=== PATIENT | male | born 1940 | race Caucasian/White ===

== ENCOUNTER 2021-02-18 15:41 | Inpatient (IN) ==
--- NOTE | 2021-02-18 16:22 | Emergency Department Note ---
History of Present Illness General Chief complaint: Weakness Stated complaint: weakness, sob Time Seen by Provider: 02/18/21 16:08 History of Present Illness Maximum Pain Intensity: 0 81-year-old male presents to the ED with a chief complaint of generalized weakness since getting the flu shot. He thinks that it was about 5 days ago. He states that his told him that he looked pale. He has had a dry cough since getting the shot. He states that he feels a little short of breath and has had a little diarrhea 2 days ago. The patient states that he typically uses home oxygen at nighttime. He does report having the motor and a Covid vaccine in the springtime. The patient does seem unsure if he has a history of A. fib or if he is on anticoagulation. I did not see that documented in his chart. Nursing staff report that he is too weak to sit up on his own. Home Medications Medication Instructions Recorded Confirmed Type amoxicillin 500 mg capsule 2,000 mg PO DIRECTED PRN 02/18/21 02/18/21 History ascorbic acid (vitamin C) 500 mg 500 mg PO DAILY 02/18/21 02/18/21 History tablet (Vitamin C) aspirin 81 mg tablet,delayed 81 mg PO DAILY 02/18/21 02/18/21 History release atenolol 25 mg tablet 25 mg PO DAILY 02/18/21 02/18/21 History atorvastatin 20 mg tablet 20 mg PO HS 02/18/21 02/18/21 History calcium carbonate-vitamin D3 600 1 cap PO DAILY 02/18/21 02/18/21 History mg calcium-200 unit capsule (Calcium 600 + D(3)) cholecalciferol (vitamin D3) 50 50 mcg PO DAILY 02/18/21 02/18/21 History mcg (2,000 unit) capsule (Vitamin D3) clopidogrel 75 mg tablet 75 mg PO DAILY 02/18/21 02/18/21 History coQ10 (ubiquinol) 200 mg capsule 200 mg PO DAILY 02/18/21 02/18/21 History epinephrine 0.3 mg/0.3 mL 0.3 mg IM DIRECTED PRN 02/18/21 02/18/21 History injection, auto-injector (EpiPen) ezetimibe 10 mg tablet 10 mg PO DAILY 02/18/21 02/18/21 History furosemide 40 mg tablet 40 mg PO BID 02/18/21 02/18/21 History gabapentin 400 mg capsule 400 mg PO TID 02/18/21 02/18/21 History levetiracetam 500 mg tablet 500 mg PO BID 02/18/21 02/18/21 History multivitamin 1 tab PO DAILY 02/18/21 02/18/21 History psyllium seed (sugar) oral powder 1 tbsp PO DAILY PRN 02/18/21 02/18/21 History (Metamucil (sugar)) sildenafil (pulm.hypertension) 20 20 mg PO BID 02/18/21 02/18/21 History mg tablet terazosin 10 mg capsule 10 mg PO HS 02/18/21 02/18/21 History Allergies Allergy/AdvReac Type Severity Reaction Status Date / Time bee venom protein (honey bee) Allergy Severe ANAPHYLAXIS-YELLOW Verified 02/18/21 18:41 JACKETS Uncoded Nonscreenable Allergy Severe All Uncoded 02/18/21 18:41 Allergen IV's must be administered thru 0.2mic in-line filter Past Med/Surg History Social History Smoking Status: Former smoker Tobacco Type: Cigarettes Feels Safe at Home: Yes Review of Systems A total of 10 systems reviewed and were otherwise negative Physical Exam Vital Signs Vital Signs - 24 hr 02/18/21 15:45 02/18/21 15:56 02/18/21 16:00 Temperature 37.7 C H Temperature Source Oral Pulse Rate 114 H 120 H 117 H Pulse Rate [Left Apical] Pulse Rhythm Pulse Rhythm [Left Apical] Respiratory Rate 26 H 20 16 Respiratory Effort / Characteristics Respiratory Depth Normal Blood Pressure 128/48 L Blood Pressure [Right Arm] Blood Pressure Mean 74 Blood Pressure Mean [Right Arm] Pulse Oximetry 95 Oxygen Delivery Method Room Air Sepsis Recent Fever Within 48 Hours No Sepsis New/Unexplained Change in Mental Status N/A Sepsis Action Taken by Nursing No Action Required 02/18/21 16:17 02/18/21 16:54 02/18/21 16:55 Temperature Temperature Source Pulse Rate 114 H 114 H Pulse Rate [Left Apical] Pulse Rhythm Irregular Irregular Pulse Rhythm [Left Apical] Respiratory Rate 26 H 20 Respiratory Effort / Characteristics Respiratory Depth Blood Pressure Blood Pressure [Right Arm] Blood Pressure Mean Blood Pressure Mean [Right Arm] Pulse Oximetry 95 94 94 Oxygen Delivery Method Room Air Room Air Room Air Sepsis Recent Fever Within 48 Hours Sepsis New/Unexplained Change in Mental Status Sepsis Action Taken by Nursing 02/18/21 16:56 02/18/21 17:00 02/18/21 18:00 Temperature Temperature Source Pulse Rate 115 H 118 H Pulse Rate [Left Apical] 114 H Pulse Rhythm Pulse Rhythm [Left Apical] Irregular Respiratory Rate 20 20 22 Respiratory Effort / Characteristics Non-Labored Respiratory Depth Normal Blood Pressure Blood Pressure [Right Arm] 99/66 L Blood Pressure Mean Blood Pressure Mean [Right Arm] 77 Pulse Oximetry 94 96 91 Oxygen Delivery Method Room Air Sepsis Recent Fever Within 48 Hours Sepsis New/Unexplained Change in Mental Status Sepsis Action Taken by Nursing 02/18/21 18:11 Temperature Temperature Source Pulse Rate Pulse Rate [Left Apical] 127 H Pulse Rhythm Pulse Rhythm [Left Apical] Irregular Respiratory Rate 16 Respiratory Effort / Characteristics Respiratory Depth Normal Blood Pressure Blood Pressure [Right Arm] 112/65 Blood Pressure Mean Blood Pressure Mean [Right Arm] 80 Pulse Oximetry 95 Oxygen Delivery Method Sepsis Recent Fever Within 48 Hours Sepsis New/Unexplained Change in Mental Status Sepsis Action Taken by Nursing CONSTITUTIONAL/VITAL SIGNS: Reviewed / noted above. GENERAL: Non-toxic in appearance. INTEGUMENTARY: Warm, dry, and Register. HEAD: Normocephalic. EYES: without scleral icterus or trauma. ENT/OROPHARYNX: clear and moist. LYMPHADENOPATHY/NECK: Is supple without lymphadenopathy or meningismus. RESPIRATORY: Clear to auscultation bilaterally. No increased work of breathing. CARDIOVASCULAR: Regular rate irregular rhythm. GI/ABDOMEN: Soft and nontender. No organomegaly or pulsatile mass. EXTREMITIES: Warm and well perfused. BACK: No CVA tenderness. NEUROLOGICAL: Intact without focal deficits. PSYCHIATRIC: normal affect. MUSCULOSKELETAL: Normally developed with good muscle tone. TRIAGE NURSING DOCUMENTATION REVIEWED. Course Administered Medications Discontinued Medications Sodium Chloride (Nss) 500 mls @ 999 mls/hr IV .Q31M LARRY Stop: 02/18/21 17:00 Last Infusion: 02/18/21 18:07 Dose: 0 mls/hr Documented by: [id number] Admin: 02/18/21 16:59 Dose: 999 mls/hr Documented by: [id number] Medical Decision Making Differential Diagnosis Differential includes acute coronary syndrome, myocardial infarction, CVA, TIA, anemia, infection, pneumonia, UTI, pyelonephritis, poor nutrition, dehydration, electrolyte disturbance,hypoglycemia. Medical Records Attestation: I reviewed the patient's medical records. Home Medications Current Medication List: was personally reviewed by me Laboratory Data Attestation: I reviewed the patient's lab results. Result diagrams: 02/18/21 16:28 02/18/21 16:28 Lab Results 02/18/21 02/18/21 02/18/21 Range/Units 16:28 16:28 16:28 WBC 13.84 H (4.8-10.8) K/uL RBC 3.43 L (4.7-6.1) M/uL Hgb 9.9 L (14.0-18.0) g/dL Hct 28.5 L (42-52) % MCV 83.1 (80-100) fL MCH 28.9 (25-34) pg MCHC 34.7 (32-36) g/dL RDW Std Deviation 44.3 (36.4-46.3) fL RDW Coeff of Ruth 14.5 (11.5-14.5) % Plt Count 286 (130-400) K/uL MPV 9.0 (7.4-10.4) fL Immature Gran % (Auto) 0.1 % Neut % (Auto) 85.4 % Lymph % (Auto) 3.6 % Ferry % (Auto) 10.8 % Eos % (Auto) 0.0 % Baso % (Auto) 0.1 % Neut # (Auto) 11.81 H (1.4-6.5) K/uL Lymph # (Auto) 0.50 L (1.2-3.4) K/uL Ferry # (Auto) 1.50 H (0.11-0.59) K/uL Eos # (Auto) 0.00 (0-0.5) K/uL Baso # (Auto) 0.01 (0-0.2) K/uL Immature Gran # (Auto) 0.02 (0.00-0.02) K/uL PT 10.4 (9.0-12.0) Seconds INR 1.0 (0.9-1.1) Sodium 125 L (136-145) mmol/L Potassium 3.9 (3.5-5.1) mmol/L Chloride 91 L (98-107) mmol/L Carbon Dioxide 26 (21-32) mmol/L Anion Gap 8.0 (3-11) BUN 19 H (7-18) mg/dl Creatinine 1.34 (0.6-1.4) mg/dl Est Cr Clr Drug Dosing 39.8 ml/min Est GFR ( Amer) 56.8 ml/min Est GFR (Non-Af Amer) 49.0 ml/min BUN/Creatinine Ratio 14.2 (10-20) Glucose 155 H (70-99) mg/dl Calcium 8.9 (8.5-10.1) mg/dl Magnesium 1.7 L (1.8-2.4) mg/dl Total Bilirubin 0.7 (0.2-1) mg/dl AST 32 (15-37) U/L ALT 19 (12-78) U/L Alkaline Phosphatase 83 (45-117) U/L Total Creatine Kinase 278 (39-308) U/L Troponin I 0.992 H* (0-0.045) ng/ml Total Protein 7.2 (6.4-8.2) gm/dl Albumin 2.8 L (3.4-5.0) gm/dl Globulin 4.4 H (2.5-4.0) gm/dl Albumin/Globulin Ratio 0.6 L (0.9-2) TSH 0.597 (0.300-4.500) uIu/ml Urine Color Urine Appearance (Clear) Urine pH (4.5-7.5) Ur Specific [place] (1.000-1.030) Urine Protein (Negative) Urine Glucose (UA) (Negative) Urine Ketones (Negative) Urine Blood (Negative) Urine Nitrite (Negative) Urine Bilirubin (Negative) Urine Urobilinogen (Negative) Ur Leukocyte Esterase (Negative) Urine WBC (Auto) (0-5) /hpf Urine RBC (Auto) (0-4) /hpf U Hyaline Cast (Auto) (0-5) /lpf U Epithel Cells (Auto) (0-5) /lpf Urine Bacteria (Auto) (Negative) Urine Yeast COVID-19 Eval Order SARS-CoV-2 (PCR) (Negative) 02/18/21 02/18/21 02/18/21 Range/Units 16:51 16:51 16:51 WBC (4.8-10.8) K/uL RBC (4.7-6.1) M/uL Hgb (14.0-18.0) g/dL Hct (42-52) % MCV (80-100) fL MCH (25-34) pg MCHC (32-36) g/dL RDW Std Deviation (36.4-46.3) fL RDW Coeff of Ruth (11.5-14.5) % Plt Count (130-400) K/uL MPV (7.4-10.4) fL Immature Gran % (Auto) % Neut % (Auto) % Lymph % (Auto) % [place]erry % (Auto) % Eos % (Auto) % Baso % (Auto) % Neut # (Auto) (1.4-6.5) K/uL Lymph # (Auto) (1.2-3.4) K/uL Ferry # (Auto) (0.11-0.59) K/uL Eos # (Auto) (0-0.5) K/uL Baso # (Auto) (0-0.2) K/uL Immature Gran # (Auto) (0.00-0.02) K/uL PT (9.0-12.0) Seconds INR (0.9-1.1) Sodium (136-145) mmol/L Potassium (3.5-5.1) mmol/L Chloride (98-107) mmol/L Carbon Dioxide (21-32) mmol/L Anion Gap (3-11) BUN (7-18) mg/dl Creatinine (0.6-1.4) mg/dl Est Cr Clr Drug Dosing ml/min Est GFR ( Amer) ml/min Est GFR (Non-Af Amer) ml/min BUN/Creatinine Ratio (10-20) Glucose (70-99) mg/dl Calcium (8.5-10.1) mg/dl Magnesium (1.8-2.4) mg/dl Total Bilirubin (0.2-1) mg/dl AST (15-37) U/L ALT (12-78) U/L Alkaline Phosphatase (45-117) U/L Total Creatine Kinase (39-308) U/L Troponin I (0-0.045) ng/ml Total Protein (6.4-8.2) gm/dl Albumin (3.4-5.0) gm/dl Globulin (2.5-4.0) gm/dl Albumin/Globulin Ratio (0.9-2) TSH (0.300-4.500) uIu/ml Urine Color Yellow Urine Appearance Cloudy A (Clear) Urine pH 6.5 (4.5-7.5) Ur Specific [place] 1.011 (1.000-1.030) Urine Protein 2+ H (Negative) Urine Glucose (UA) Negative (Negative) Urine Ketones Negative (Negative) Urine Blood 1+ H (Negative) Urine Nitrite Negative (Negative) Urine Bilirubin Negative (Negative) Urine Urobilinogen Negative (Negative) Ur Leukocyte Esterase Negative (Negative) Urine WBC (Auto) 1-5 (0-5) /hpf Urine RBC (Auto) 0-4 (0-4) /hpf U Hyaline Cast (Auto) 1-5 (0-5) /lpf U Epithel Cells (Auto) >30 H (0-5) /lpf Urine Bacteria (Auto) Negative (Negative) Urine Yeast Not Reportable COVID-19 Eval Order Covid19 at [facility] SARS-CoV-2 (PCR) NEGATIVE (Negative) Imaging Data Radiologist's Impression: Chest X-Ray 02/18/21 16:18 XR chest 1V portable CLINICAL HISTORY: weakness COMPARISON STUDY: Chest radiograph November 15, 2015. Chest CT November 16, 2015. FINDINGS: Incidental note is made of postoperative findings within the cervical spine. There is no pneumothorax or pleural effusion. Cardiomegaly is unchanged. Interstitial thickening and mild bilateral opacities are similar to prior exam no lobar consolidation is present left hilar prominence is unchanged. This is likely due to to an enlarged left pulmonary artery, as shown on prior CT. IMPRESSION: Interstitial thickening and mild left lung opacities, similar to prior exam. The findings are likely chronic. A mild superimposed infectious p rocess would be difficult to exclude. ACT 112: Negative or not required by law. Electronically signed by: Rubén Sterling M.D. 02/18/2021 5:20 PM ECG Data Attestation: I personally reviewed and interpreted this ECG as follows: Additional Comments: Twelve-lead EKG: Per my interpretation there is atrial fibrillation at a rate of 112. No ST elevation. No PVCs. Normal QTC MDM Narrative Patient presents with generalized weakness and a dry cough and a little shortness of breath since receiving a flu vaccine about 5 days or so ago. Vital signs reveal tachycardia with a heart rate of 114. EKG shows atrial fibrill ation. No apparent history of atrial fibrillation in the records. Patient has a temperature of 37. 7. Ox saturations are 95% on room air. He is in no distress. He is very weak according to nursing staff. He cannot sit well or get out of bed on his own. They reported that he has been using his 's walker for the past 5 days or so. The patient's EKG shows A. fib which appears to be new onset. His heart rate is 112. White blood cell count was 13.8. Hemoglobin is 9.9. Sodium is 125. Troponin is 0.99. TSH was normal. Urine did not show obvious infection. Chest x-ray did not show obvious infiltrate or pneumonia or acute disease. Covid test was negative. I spoke to the hospita list. He will see the patient for further inpatient evaluation and care. Impression & Plan Atrial fibrillation, new onset, Generalized muscle weakness, Elevated troponin, Acute hyponatremia Discharge Plan Visit Data Chief Complaint: Weakness Stated Complaint: weakness, sob ED Provider: David Sky Discharge Problem: Atrial fibrillation, new onset, Generalized muscle weakness, Elevated troponin, Acute hyponatremia Forms Stand Alone Forms: [facility] Prescriptions Prescriptions: No Action multivitamin Tablet 1 tab PO DAILY RF: 0 amoxicillin 500 mg capsule 2,000 mg PO DIRECTED PRN (Reason: PRIOR TO DENTAL APPT.) RF: 0 furosemide 40 mg tablet 40 mg PO BID RF: 0 atorvastatin 20 mg tablet 20 mg PO HS RF: 0 levetiracetam 500 mg tablet 500 mg PO BID RF: 0 gabapentin 400 mg capsule 400 mg PO TID RF: 0 atenolol 25 mg tablet 25 mg PO DAILY RF: 0 clopidogrel 75 mg tablet 75 mg PO DAILY RF: 0 aspirin 81 mg Tablet,Delayed Release (Dr/Ec) 81 mg PO DAILY RF: 0 ascorbic acid (vitamin C) [Vitamin C] 500 mg Tablet 500 mg PO DAILY RF: 0 epinephrine [EpiPen] 0.3 mg/0.3 mL Auto-Injector 0.3 mg IM DIRECTED PRN (Reason: Allergic Reaction) RF: 0 terazosin 10 mg capsule 10 mg PO HS RF: 0 ezetimibe 10 mg tablet 10 mg PO DAILY RF: 0 Metamucil (sugar) Powder 1 tbsp PO DAILY PRN (Reason: Constipation) RF: 0 Calcium 600 + D(3) 600 mg calcium- 200 unit Capsule 1 cap PO DAILY RF: 0 sildenafil (pulm.hypertension) 20 mg tablet 20 mg PO BID RF: 0 cholecalciferol (vitamin D3) [Vitamin D3] 50 mcg (2,000 unit) Capsule 50 mcg PO DAILY RF: 0 coQ10 (ubiquinol) 200 mg Capsule 200 mg PO DAILY RF: 0 Referrals Referrals: Henry Campbell MD [Primary Care Provider] -
[2021-02-18] MEDS ORDERED: SODIUM CHLORIDE 0.9% 500 ML IV SCH (16:30)
[2021-02-18 16:47] LABS: Basophils # (auto) 0.01 K/uL (0-0.2); Basophils % (auto) 0.1 %; Hematocrit (blood only) 28.5 % (42-52); Hemoglobin 9.9 g/dL (14.0-18.0); Immature Granulocytes # (auto) 0.02 K/uL (0.00-0.02); Immature Granulocytes % (auto) 0.1 %; Lymphocytes % (auto) 3.6 %; Mean Corpuscular Hemoglobin 28.9 pg (25-34); Mean Corpuscular Hgb Conc 34.7 g/dL (32-36); Mean Corpuscular Volume 83.1 fL (80-100); Monocytes % (auto) 10.8 %; Neutrophils # (auto) 11.81 K/uL (1.4-6.5); Neutrophils % (auto) 85.4 %; Platelet Count 286 K/uL (130-400); RDW Coefficient of Variation 14.5 % (11.5-14.5); RDW Standard Deviation 44.3 fL (36.4-46.3); Red Blood Count 3.43 M/uL (4.7-6.1); White Blood Count 13.84 K/uL (4.8-10.8)
[2021-02-18 17:00] LABS: Prothrombin Time 10.4 Seconds (9.0-12.0)
[2021-02-18 17:05] LABS: Appearance Urine Cloudy (Clear); Bacteria Urine Automated Negative (Negative); Bilirubin Urine Negative (Negative); Blood Urine 1+ (Negative); Color Urine Yellow; Epithelial Cell Urine Auto >30 /lpf (0-5); Glucose Urine UA Negative (Negative); Ketones Urine Negative (Negative); Leukocyte Esterase Urine Negative (Negative); Nitrite Urine Negative (Negative); Protein Urine 2+ (Negative); RBC Urine Automated 0-4 /hpf (0-4); Specific Gravity Urine 1.011 (1.000-1.030); Urobilinogen Urine Negative (Negative); pH Urine 6.5 (4.5-7.5)
[2021-02-18 17:14] LABS: Albumin Level 2.8 gm/dl (3.4-5.0); BUN Creatinine Ratio 14.2 (10-20); Calcium 8.9 mg/dl (8.5-10.1); Creatinine Clr Calc Pharmacy 39.8 ml/min; Est GFR (African American) 56.8 ml/min; Magnesium 1.7 mg/dl (1.8-2.4); Potassium 3.9 mmol/L (3.5-5.1)
--- NOTE | 2021-02-18 17:22 | XRay Report ---
XR chest 1V portable CLINICAL HISTORY: weakness COMPARISON STUDY: Chest radiograph November 15, 2015. Chest CT November 16, 2015. FINDINGS: Incidental note is made of postoperative findings within the cervical spine. There is no pn eumothorax or pleural effusion. Cardiomegaly is unchanged. Interstitial thickening and mild bilateral opacities are similar to prior exam no lobar consolidation is present left hilar prominence is uncha nged. This is likely due to to an enlarged left pulmonary artery, as shown on prior CT. IMPRESSION: Interstitial thickening and mild left lung opacities, similar to prior exam. The finding s are likely chronic. A mild superimposed infectious process would be difficult to exclude. ACT 112: Negative or not required by law. Electronically signed by: Rubén Sterling M.D. 02/18/2021 5:20 PM
[2021-02-18 17:33] LABS: Albumin Globulin Ratio 0.6 (0.9-2); Bilirubin,Total 0.7 mg/dl (0.2-1); Globulin 4.4 gm/dl (2.5-4.0); Thyroid Stimulating Hormone 0.597 uIu/ml (0.300-4.500); Total Protein 7.2 gm/dl (6.4-8.2); Troponin I 0.992 ng/ml (0-0.045)
[2021-02-18] MEDS ORDERED: ACETAMINOPHEN 325 MG TAB PO STA (19:18)
[2021-02-18] MEDS ORDERED: MAGNESIUM SULFATE / D5W 1 GM/100 ML BAG IV ONE ×2 (19:18→23:30)
[2021-02-18] MEDS ORDERED: POTASSIUM CHLORIDE CRTAB 20 MEQ TABCR PO STA (19:28)
[2021-02-18] MEDS ORDERED: METOPROLOL TARTRATE 1 MG/ML VIAL IV STA (19:28)
--- NOTE | 2021-02-18 20:09 | History & Physical Report ---
Date of Service February 18, 2021 Assessment & Plan (1) Atrial fibrillation, new onset: Plan: ? 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 hypertension, BP on the lower side hyperlipidemia, on statin Rx prostate cancer status post surgery/radiation, outpatient PSA rising, patient follows [place] [facility] [place] seizure disorder, stable on regimen Acute on chronic anemia, hemoglobin drop from baseline (no overt source of bleed for now) Hyperglycemia rule out DM Possible alcohol abuse past tobacco abuse PCU Change patient's atenolol to metoprolol for rate control Antipyretic, supportive management for viral illness Gentle IV hydration, hold home diuretic until patient euvolemic IV Heparin for thromboembolic prophylaxis TTE, cardiology consult new onset A. fib OLEG S/DT precautions Anemia work-up, transfuse PRBC if hemoglobin less than 8 and or for symptomatic anemia Check hemoglobin A1c PT OT eval DVT prophylaxis with IV Heparin Full code Patient's requesting update providers. Ms. Nina Dunham, contact #[phone]. Text document was generated using [employer] voice recognition software. It may contain grammatical or spelling errors. Kindly contact undersigned for clarification of any documentation item in question. History of Present Illness Chief Complaint: Generalized weakness Primary Care Provider: Henry Campbell MD History obtained from patient, family, and records. Medical history significant for right-sided heart failure/cor pulmonale (EF 50 to 54%, TTE 2020), CAD, PVD status post stent, severe aortic stenosis, ASD status post closure, hypertension, hyperlipidemia, prostate cancer status post surgery/radiation, seizure disorder, chronic anemia (baseline hemoglobin of 11 as of 2018 ), daily alcohol intake, past tobacco abuse. Last confinement November 2015 for syncope associated with confusion. Neurology started Keppra for possible seizures. Patient noted generalized weakness after getting a flu shot about 5 days ago. Dry cough without chest pain or shortness of breath. Transient diarrhea. No headache symptoms. No abdominal pain, fair appetite. Patient brought by to the ER. Noted to be in rapid atrial fibrillation, cardiac rate 120s. Medical History as above 2003 colonoscopy was normal as per records. 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 Allergies Allergy/AdvReac Type Severity Reaction Status Date / Time bee venom protein (honey bee) Allergy Severe ANAPHYLAXIS-YELLOW Verified 02/18/21 18:41 JACKETS Uncoded Nonscreenable Allergy Severe All Uncoded 02/18/21 18:41 Allergen IV's must be administered thru 0.2mic in-line filter Home Medications Medication Instructions Recorded Confirmed Type amoxicillin 500 mg capsule 2,000 mg PO DIRECTED PRN 02/18/21 02/18/21 History ascorbic acid (vitamin C) 500 mg 500 mg PO DAILY 02/18/21 02/18/21 History tablet (Vitamin C) aspirin 81 mg tablet,delayed 81 mg PO DAILY 02/18/21 02/18/21 History release atenolol 25 mg tablet 25 mg PO DAILY 02/18/21 02/18/21 History atorvastatin 20 mg tablet 20 mg PO HS 02/18/21 02/18/21 History calcium carbonate-vitamin D3 600 1 cap PO DAILY 02/18/21 02/18/21 History mg calcium-200 unit capsule (Calcium 600 + D(3)) cholecalciferol (vitamin D3) 50 50 mcg PO DAILY 02/18/21 02/18/21 History mcg (2,000 unit) capsule (Vitamin D3) clopidogrel 75 mg tablet 75 mg PO DAILY 02/18/21 02/18/21 History coQ10 (ubiquinol) 200 mg capsule 200 mg PO DAILY 02/18/21 02/18/21 History epinephrine 0.3 mg/0.3 mL 0.3 mg IM DIRECTED PRN 02/18/21 02/18/21 History injection, auto-injector (EpiPen) ezetimibe 10 mg tablet 10 mg PO DAILY 02/18/21 02/18/21 History furosemide 40 mg tablet 40 mg PO BID 02/18/21 02/18/21 History gabapentin 400 mg capsule 400 mg PO TID 02/18/21 02/18/21 History levetiracetam 500 mg tablet 500 mg PO BID 02/18/21 02/18/21 History multivitamin 1 tab PO DAILY 02/18/21 02/18/21 History psyllium seed (sugar) oral powder 1 tbsp PO DAILY PRN 02/18/21 02/18/21 History (Metamucil (sugar)) sildenafil (pulm.hypertension) 20 20 mg PO BID 02/18/21 02/18/21 History mg tablet terazosin 10 mg capsule 10 mg PO HS 02/18/21 02/18/21 History Past Med/Surg History Social History Smoking Status: Former smoker Tobacco Type: Cigarettes Smoking End Date: 40 yra; Second Hand Exposure: No; Do You Dip or Chew Tobacco: No; Tobacco Cessation Education Requested by Patient: No Hx Alcohol Use: Yes Alcohol type: beer Hx Substance Use: No Preferred Language: Faroese Communication Ability: Effective Lead Mechanical Engineer Required: No Beliefs That Will Affect Care: None Current Living Situation: Spouse Other Information That Helps Us Care for You: No Feels Safe at Home: Yes Safety Concerns: Feels Safe At This Time Assistive Devices: Oxygen - at Night Review of Systems Review of Systems: As per HPI, all 10 systems reviewed, all other ROS negative Physical Exam Physical Exam: GENERAL: Slightly anxious, slightly uncomfortable, mild hearing impairment, no respiratory distress SKIN: Pallor, warm HEENT: Pale palpebral conjunctivae, no ptosis, dry buccal mucosa NECK : Supple, no tenderness CHEST : Decreased breath sounds, no tenderness HEART : Irregular, tachycardic, systolic murmur best heard on second right intercostal space ABDOMEN: Some distention, nontender RECTAL : Intact sphincter, brown stool (FOBT negative) EXTREMITIES : Minimal LE swelling, no LE tenderness, no other conspicuous deformities noted NEUROLOGIC : Coherent, no facial asymmetry, mild hearing impairment, no other gross focality Results & Data Results & Data ([facility]) Vital Signs (Past 12 Hours) Vital Signs Temp Pulse Pulse Resp BP BP Pulse Ox 02/18/21 19:26 37.6 C H 02/18/21 19:00 123 H 22 110/54 L 93 02/18/21 18:11 127 H 16 112/65 95 02/18/21 18:00 118 H 22 91 02/18/21 17:00 115 H 20 96 02/18/21 16:56 114 H 20 99/66 L 94 02/18/21 16:55 94 02/18/21 16:54 114 H 20 94 02/18/21 16:17 114 H 26 H 95 02/18/21 16:00 117 H 16 02/18/21 15:56 120 H 20 02/18/21 15:45 37.7 C H 114 H 26 H 128/48 L 95 Laboratory Results Laboratory Results WBC 13.84 K/uL (4.8-10.8) H 02/18/21 16:28 RBC 3.43 M/uL (4.7-6.1) L 02/18/21 16:28 Hgb 9.9 g/dL (14.0-18.0) L 02/18/21 16: Hct 28.5 % (42-52) L 02/18/21 16: MCV 83.1 fL (80-100) 02/18/21 16: MCH 28.9 pg (25-34) 02/18/21 16: MCHC 34.7 g/dL (32-36) 02/18/21 16:28 RDW Std Deviation 44.3 fL (36.4-46.3) 02/18/21 16: RDW Coeff of Ruth 14.5 % (11.5-14.5) 02/18/21 16: Plt Count 286 K/uL (130-400) 02/18/21 16:28 MPV 9.0 fL (7.4-10.4) 02/18/21 16: Immature Gran % (Auto) 0.1 % 02/18/21 16: Neut % (Auto) 85.4 % 02/18/21 16:28 Lymph % (Auto) 3.6 % 02/18/21 16:28 Sac % (Auto) 10.8 % 02/18/21 16: Eos % (Auto) 0.0 % 02/18/21 16: Baso % (Auto) 0.1 % 02/18/21 16: Neut # (Auto) 11.81 K/uL (1.4-6.5) H 02/18/21 16:28 Lymph # (Auto) 0.50 K/uL (1.2-3.4) L 02/18/21 16:28 Sac # (Auto) 1.50 K/uL (0.11-0.59) H 02/18/21 16:28 Eos # (Auto) 0.00 K/uL (0-0.5) 02/18/21 16:28 Baso # (Auto) 0.01 K/uL (0-0.2) 02/18/21 16:28 Immature Gran # (Auto) 0.02 K/uL (0.00-0.02) 02/18/21 16: PT 10.4 Seconds (9.0-12.0) 02/18/21 16: INR 1.0 (0.9-1.1) 02/18/21 16: Sodium 125 mmol/L (136-145) L 02/18/21 16: Potassium 3.9 mmol/L (3.5-5.1) 02/18/21 16: Chloride 91 mmol/L (98-107) L 02/18/21 16: Carbon Dioxide 26 mmol/L (21-32) 02/18/21 16: Anion Gap 8.0 (3-11) 02/18/21 16:28 BUN 19 mg/dl (7-18) H 02/18/21 16: Creatinine 1.34 mg/dl (0.6-1.4) 02/18/21 16: Est Cr Clr Drug Dosing 39.8 ml/min 02/18/21 16:28 Est GFR ( Amer) 56.8 ml/min 02/18/21 16: Est GFR (Non-Af Amer) 49.0 ml/min 02/18/21 16: BUN/Creatinine Ratio 14.2 (10-20) 02/18/21 16: Glucose 155 mg/dl (70-99) H 02/18/21 16: Calcium 8.9 mg/dl (8.5-10.1) 02/18/21 16: Magnesium 1.7 mg/dl (1.8-2.4) L 02/18/21 16:28 Total Bilirubin 0.7 mg/dl (0.2-1) 02/18/21 16:28 AST 32 U/L (15-37) 02/18/21 16:28 ALT 19 U/L (12-78) 02/18/21 16:28 Alkaline Phosphatase 83 U/L (45-117) 02/18/21 16:28 Total Creatine Kinase 278 U/L (39-308) 02/18/21 16:28 Troponin I 0.992 ng/ml (0-0.045) H* 02/18/21 16:28 Total Protein 7.2 gm/dl (6.4-8.2) 02/18/21 16: Albumin 2.8 gm/dl (3.4-5.0) L 02/18/21 16:28 Globulin 4.4 gm/dl (2.5-4.0) H 02/18/21 16:28 Albumin/Globulin Ratio 0.6 (0.9-2) L 02/18/21 16: TSH 0.597 uIu/ml (0.300-4.500) 02/18/21 16:28 Urine Color Yellow 02/18/21 16:51 Urine Appearance Cloudy (Clear) A 02/18/21 16:51 Urine pH 6.5 (4.5-7.5) 02/18/21 16:51 Ur Specific [place] 1.011 (1.000-1.030) 02/18/21 16:51 Urine Protein 2+ (Negative) H 02/18/21 16:51 Urine Glucose (UA) Negative (Negative) 02/18/21 16:51 Urine Ketones Negative (Negative) 02/18/21 16:51 Urine Blood 1+ (Negative) H 02/18/21 16:51 Urine Nitrite Negative (Negative) 02/18/21 16:51 Urine Bilirubin Negative (Negative) 02/18/21 16:51 Urine Urobilinogen Negative (Negative) 02/18/21 16:51 Ur Leukocyte Esterase Negative (Negative) 02/18/21 16:51 Urine WBC (Auto) 1-5 /hpf (0-5) 02/18/21 16:51 Urine RBC (Auto) 0-4 /hpf (0-4) 02/18/21 16:51 U Hyaline Cast (Auto) 1-5 /lpf (0-5) 02/18/21 16:51 U Epithel Cells (Auto) >30 /lpf (0-5) H 02/18/21 16:51 Urine Bacteria (Auto) Negative (Negative) 02/18/21 16:51 Urine Yeast Not Reportable 02/18/21 16:51 COVID-19 Eval Order Covid19 at [facility] 02/18/21 16:51 SARS-CoV-2 (PCR) NEGATIVE (Negative) 02/18/21 16:51 Impressions Chest X-Ray 02/18/21 16:18 XR chest 1V portable CLINICAL HISTORY: weakness COMPARISON STUDY: Chest radiograph November 15, 2015. Chest CT November 16, 2015. FINDINGS: Incidental note is made of postoperative findings within the cervical spine. There is no pneumothorax or pleural effusion. Cardiomegaly is unchanged. Interstitial thickening and mild bilateral opacities are similar to prior exam no lobar consolidation is present left hilar prominence is unchanged. This is likely due to to an enlarged left pulmonary artery, as shown on prior CT. IMPRESSION: Interstitial thickening and mild left lung opacities, similar to prior exam. The findings are likely chronic. A mild superimposed infectious process would be difficult to exclude. ACT 112: Negative or not required by law. Electronically signed by: Rubén Sterling M.D. 02/18/2021 5:20 PM Diagnostic Findings EKG as per my interpretation rate 110, A. fib, LAD, LAFB, incomplete RBBB, T wave abnormalities inferior leads
[2021-02-18 20:28] LABS: Reticulocyte % 1.4 % (0.5-2.0); Reticulocytes # 0.05 10^6/uL (0.02-0.10)
[2021-02-18] MEDS ORDERED: THIAMINE HCL 100 MG in SYRINGE 9 ML IV ONE (20:30)
[2021-02-18 20:58] LABS: Partial Thromboplastin Ratio 1.2; Partial Thromboplastin Time 31.4 Seconds (21.0-31.0)
[2021-02-18] MEDS: ALBUMIN 25% 12.5 GM/50 ML VIAL IV SCH ×2 (21:10→22:31)
[2021-02-18 21:36] LABS: Ferritin 205.8 ng/ml (8-388); Troponin I 0.942 ng/ml (0-0.045)
[2021-02-18 21:38] LABS: Folate (Folic Acid) > 20.00 ng/ml (>5.38); Vitamin B12 478 pg/ml (193-986)
[2021-02-18 21:47] LABS: Procalcitonin 0.31 ng/ml (0-0.5)
[2021-02-18 22:23] LABS: Lyme Ab IgG w/WB Rflx Negative (Negative); Lyme Ab IgM w/WB Rflx Negative (Negative)
--- NOTE | 2021-02-18 22:58 | CT Scan Report ---
CT SCAN OF THE BRAIN WITHOUT IV CONTRAST CLINICAL HISTORY: Generalized weakness. COMPARISON STUDY: CT of the brain dated 11/15/2015. TECHNIQUE: Unenhanced axial CT scan of the brain is performed from the vertex to the skull base. A do se lowering technique was utilized adhering to the principles of ALARA. CT DOSE: 537.48 mGy.cm FINDINGS: Brain parenchyma: There are age-related involutional changes noting moderate to advanced subcortical and periventricular microangiopathic change. 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 There is no hemorrhage, mass effect, or evidence of acute territorial ischemia by CT criteria. Hubbard- white matter differentiation is preserved. No extra-axial fluid collection is seen. Ventricles, sulci, cisterns: Prominent secondary to involutional change. Intracranial vasculature: There is atherosclerotic calcification of the cavernous carotid arteries. Calvarium: Unremarkable. Sinuses and mastoids: The visualized paranasal sinuses are clear. There is a small right mastoid effu vj. The left mastoid air cells are well pneumatized. Orbits: The bony orbits are grossly intact. There are bilateral ocular lens implants. IMPRESSION: There is no hemorrhage, mass effect, or evidence of acute territorial ischemia by CT renetta arango. ACT 112: Negative or not required by law. Electronically signed by: Ceasar Higgins M.D. 02/18/2021 10:57 PM
[2021-02-18] MEDS ORDERED: LORazepam 3 MG/6 ML VIAL IV PRN (23:07)
[2021-02-18] MEDS ORDERED: ACETAMINOPHEN 325 MG TAB PO PRN (23:07)
[2021-02-18] MEDS ORDERED: LORazepam 1 MG/2 ML VIAL IV PRN (23:07)
[2021-02-18] MEDS ORDERED: LORazepam 2 MG/4 ML VIAL IV PRN (23:07)
[2021-02-18] MEDS ORDERED: PROMETHAZINE HCL 12.5 MG in SODIUM CHLORIDE 0.9% 50 ML IV PRN (23:07)
[2021-02-18] MEDS ORDERED: ATIVAN IV ALCOHOL WITHDRAWL IV PRN (23:07)
[2021-02-18] MEDS ORDERED: METOPROLOL TARTRATE 25 MG TAB PO SCH (23:07)
[2021-02-18] MEDS ORDERED: oxyCODONE HCL IR 5 MG TAB (IMMEDIATE RELEASE) PO PRN (23:07)
[2021-02-18] MEDS: GABAPENTIN 400 MG CAP PO SCH (23:47)
[2021-02-18] MEDS: ATORVASTATIN 20 MG TAB PO SCH (23:48)
[2021-02-18] MEDS: levETIRAcetam 500 MG TAB PO SCH (23:48)
[2021-02-19] MEDS ORDERED: Heparin IV Adult Wt-Based Standard *NO* Bolus Protocol IV ONE (00:20)
[2021-02-19] MEDS: HEPARIN SODIUM/DEXTROSE 25,000 UNITS/500 ML BAG IV SCH (01:33)
[2021-02-19] MEDS ORDERED: dilTIAZem HCl 5 MG/ML 5 ML VIAL IV STA (02:11)
[2021-02-19] MEDS ORDERED: METOPROLOL TARTRATE 25 MG TAB PO STA (02:11)
[2021-02-19] MEDS ORDERED: NSS + 20MEQ KCL 20 MEQ/1,000 ML BAG IV ONE (02:15)
[2021-02-19] MEDS ORDERED: XOPENEX/ATROVENT 1.25mg/0.5MG NEB COMBO NEB STA (02:40)
[2021-02-19] MEDS ORDERED: IPRATROPIUM BROMIDE NEB SOLN 0.02% 2.5 ML VIAL INH STA (02:44)
[2021-02-19] MEDS ORDERED: LEVALBUTEROL 1.25MG/0.5ML NEB INH STA (02:44)
[2021-02-19] MEDS ORDERED: methylPREDNISolone 20 MG in SYRINGE 0 ML IV ONE (02:45)
[2021-02-19] MEDS ORDERED: FUROSEMIDE 20 MG in SYRINGE 0 ML IV ONE ×2 (03:00→05:00)
[2021-02-19] MEDS ORDERED: DIGOXIN 250 MCG in SYRINGE 9 ML IV ONE ×2 (03:00→04:30)
--- NOTE | 2021-02-19 03:13 | Communication Note ---
Date of Service: February 19, 2021 2:40 AM Made aware by RN of patient tachypnea. Patient with dry cough. Patient complaining of shortness of breath. Chest x-ray as per my interpretation Cardiomegaly, pulmonary congestion AP CHF/fluid overload Lasix IV 1 dose now Resume home diuretic Rx.
[2021-02-19] MEDS: guaiFENesin 600 MG TABCR PO SCH ×2 (04:25→20:32)
[2021-02-19] MEDS ORDERED: XOPENEX/ATROVENT 1.25mg/0.5MG NEB COMBO NEB PRN (04:33)
[2021-02-19] MEDS ORDERED: LEVALBUTEROL 1.25MG/0.5ML NEB INH PRN (04:45)
[2021-02-19] MEDS ORDERED: IPRATROPIUM BROMIDE NEB SOLN 0.02% 2.5 ML VIAL INH PRN (04:45)
[2021-02-19 05:13] LABS: Basophils # (auto) 0.01 K/uL (0-0.2); Basophils % (auto) 0.1 %; Hematocrit (blood only) 27.5 % (42-52); Hemoglobin 9.5 g/dL (14.0-18.0); Immature Granulocytes # (auto) 0.03 K/uL (0.00-0.02); Immature Granulocytes % (auto) 0.3 %; Lymphocytes # (auto) 0.28 K/uL (1.2-3.4); Lymphocytes % (auto) 2.6 %; Mean Corpuscular Hemoglobin 28.7 pg (25-34); Mean Corpuscular Hgb Conc 34.5 g/dL (32-36); Mean Corpuscular Volume 83.1 fL (80-100); Mean Platelet Volume 8.7 fL (7.4-10.4); Monocytes # (auto) 0.65 K/uL (0.11-0.59); Monocytes % (auto) 6.1 %; Neutrophils # (auto) 9.77 K/uL (1.4-6.5); Neutrophils % (auto) 90.9 %; Platelet Count 268 K/uL (130-400); RDW Coefficient of Variation 14.4 % (11.5-14.5); RDW Standard Deviation 44.1 fL (36.4-46.3); Red Blood Count 3.31 M/uL (4.7-6.1); White Blood Count 10.74 K/uL (4.8-10.8)
[2021-02-19 05:27] LABS: Base Excess ABG 0.9 mEq/L (-9-1.8); HCO3 ABG 24 mmol/L (19-24); Oxygen Saturation ABG 94.1 % (90-95); PCO2 ABG 34 mmHg (35-46); PO2 ABG 75 mmHg (80-95); pH ABG 7.48 (7.35-7.45)
[2021-02-19 05:28] LABS: Allen Test Pos (Pos)
[2021-02-19 05:29] LABS: BUN Creatinine Ratio 18.2 (10-20); Calcium 8.3 mg/dl (8.5-10.1); Creatinine Clr Calc Pharmacy 49.5 ml/min; Est GFR (African American) 75.4 ml/min; Magnesium 2.1 mg/dl (1.8-2.4); Potassium 3.8 mmol/L (3.5-5.1)
--- NOTE | 2021-02-19 07:08 | Electrocardiogram Report ---
Test Reason : Blood Pressure : / mmHG Vent. Rate : 112 BPM Atrial Rate : 312 BPM P-R Int : 000 ms QRS Dur : 092 ms QT Int : 298 ms P-R-T Axes : 000 -08 008 degrees QTc Int : 406 ms Atrial fibrillation with rapid ventricular response Incomplete right bundle branch block Abnormal ECG When compared with ECG of 15-NOV-2015 14:36, Atrial fibrillation has replaced Sinus rhythm Vent. rate has increased BY 41 BPM T wave inversion now evident in Inferior leads Confirmed by Maximiliano Barba ([id number]) on 02/19/2021 7:08:10 AM Referred By: REFERRED SELF Confirmed By:Wili Barba
--- NOTE | 2021-02-19 07:08 | Electrocardiogram Report ---
Test Reason : Blood Pressure : / mmHG Vent. Rate : 117 BPM Atrial Rate : 141 BPM P-R Int : 000 ms QRS Dur : 106 ms QT Int : 300 ms P-R-T Axes : 000 -22 031 degrees QTc Int : 418 ms Atrial fibrillation with rapid ventricular response Incomplete right bundle branch block Abnormal ECG When compared with ECG of 18-FEB-2021 16:06, (unconfirmed) No significant change was found Confirmed by Maximiliano Barba ([id number]) on 02/19/2021 7:08:42 AM Referred By: REFERRED SELF Confirmed By:Wili Barba
[2021-02-19 07:25] LABS: Estimated Average Glucose 140 mg/dl; Hemoglobin A1C 6.5 % (4.5-5.6)
--- NOTE | 2021-02-19 07:33 | XRay Report ---
XR chest 1V portable HISTORY: 80 years-old Male sob acute shortness of breath COMPARISON: Chest radiograph 02/18/2021 TECHNIQUE: Portable AP view of the chest FINDINGS: Cardiac silhouette is enlarged. Calcified plaque of the thoracic aorta. Bilateral hilar prominence. R eticular interstitial opacities have progressively worsened. No pneumothorax or large pleural effusio n. Progressive left midlung and right lung base ill-defined airspace opacities. Degenerative changes of the shoulders and spine. Cervical spinal fusion hardware. IMPRESSION: 1. Cardiomegaly with interval development of pulmonary edema. 2. Progressively worsened right lung base and left midlung ill-defined opacities may represent a supe rimposed pneumonitis. ACT 112: Negative or not required by law. The above report was generated using voice recognition software. It may contain grammatical, syntax o r spelling errors. Electronically signed by: Vikas Mcdonald M.D. 02/19/2021 7:31 AM
[2021-02-19 07:58] LABS: Partial Thromboplastin Time 51.8 Seconds (21.0-31.0)
[2021-02-19] MEDS: FUROSEMIDE 40 MG TAB PO SCH ×2 (07:58→20:32)
[2021-02-19] MEDS: levETIRAcetam 500 MG TAB PO SCH ×2 (07:59→20:32)
[2021-02-19] MEDS: FOLIC ACID 1 MG TAB PO SCH (07:59)
[2021-02-19] MEDS: ASPIRIN 81 MG ECTAB PO SCH (07:59)
[2021-02-19] MEDS: THIAMINE HCL 100 MG TAB PO SCH (07:59)
[2021-02-19] MEDS: EZETIMIBE 10 MG TABLET PO SCH (07:59)
[2021-02-19] MEDS: MULTIVITAMIN TAB PO SCH (07:59)
[2021-02-19] MEDS: GABAPENTIN 400 MG CAP PO SCH ×3 (07:59→20:32)
[2021-02-19] MEDS: CLOPIDOGREL BISULFATE 75 MG TAB PO SCH (07:59)
[2021-02-19] MEDS: POTASSIUM CHLORIDE CRTAB 20 MEQ TABCR PO SCH ×2 (08:00→20:30)
[2021-02-19] MEDS ORDERED: NON-FORMULARY MEDICATION (Multivitamin Tablet) PO SCH (09:00)
[2021-02-19] MEDS ORDERED: METOPROLOL TARTRATE 50 MG TAB PO SCH (09:00)
--- NOTE | 2021-02-19 11:41 | Cardiology Consultation ---
Date of Consultation February 19, 2021 Assessment & Plan (1) Atrial fibrillation, new onset: (2) Severe calcific aortic stenosis: (3) Acute hyponatremia: (4) Right heart failure due to pulmonary hypertension: Complex and ill 80-year-old male with severe calcific aortic stenosis presents with newly observed atrial fibrillation of possible several days in duration. Heart rates remain elevated but on initial treatment with IV fluids and beta and calcium channel blockers developed pulmonary edema. Presentation notable for hyponatremia and anemia as well. Plan: Continue IV heparin but follow hemoglobins closely given anemia on presentation Beta-javier increased on admission we will add oral amiodarone as patient unlikely to tolerate atrial fibrillation IV furosemide to be administered currently will need to follow hyponatremia Low threshold for transfer to tertiary facility with any further hemodynamic instability History of Present Illness Reason for Consultation: Atrial fibrillation with rapid response Requesting Physician: Dr. Lynn Attending Physician: Fabian Lynn MD History of Present Illness Patient is an 80-year-old male with complex cardiac history presents now with newly observed atrial fibrillation with rapid response ongoing issues include 1. Severe calcific aortic stenosis 2. Prior ASD PFO closure with percutaneous device 12/14/2017 with peridevice residual left to right shunt 3. Mild coronary artery disease by cardiac catheterization 2017 4. Atherosclerotic peripheral vascular disease with bilateral carotid artery disease status post left carotid enterectomy 2014, right external iliac angio plasty and stent implantation, left iliofemoral endarterectomy and angioplasty with bilateral common iliac artery stenting 2011 5. Hypertension 6. Treatment for possible generalized seizure following unwitnessed syncope 2017 7. Hyperlipidemia on therapy 8. 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, chronic sildenafil Information gained by discussion with patient, (fair historian only) review of chart and outpatient records Patient presents this admission noting having felt poorly for approximately 5 days attributing it to an influenza vaccine. He has had dry cough as well as an episode of diarrhea. On day of admission patient had marked weakness limiting activities. No focal neurologic deficits. On presentation to the ER is found to be in atrial fibrillation with rapid response. He noted no chest pains was mildly breathless. Patient was treated with beta-javier and calcium channel javier as well as mild fluid resuscitation only mild slowing of heart rate. Patient had worsening shortness of breath early this morning was found to be in pulmonary edema by chest x-ray. Currently denying acute complaints but mildly breathless and weak. He denies overt fevers or chills but has had cough for several days. No overt bleeding no dizziness or lightheadedness. No acute gain in weight by patient history He denies claudication or seizure Currently non-smoker. Does drink approximately 4-5 alcoholic beverages per day Contacted who notes early near the day of admission patient did excessive amount of work caring heavy trash up and down basement stairs. On arriving at the top of the stairs he became acutely lightheaded and slumped against the counter. He lowered to the floor without complete loss of consciousness. Paramedics were summoned but patient initially declined ER visit. Later feather washer were once again summoned once patient agreed to admission Allergies Allergy/AdvReac Type Severity Reaction Status Date / Time bee venom protein (honey bee) Allergy Severe ANAPHYLAXIS-YELLOW Verified 02/18/21 18:41 JACKETS Uncoded Nonscreenable Allergy Severe All Uncoded 02/18/21 18:41 Allergen IV's must be administered thru 0.2mic in-line filter Home Medications Medication Instructions Recorded Confirmed Type amoxicillin 500 mg capsule 2,000 mg PO DIRECTED PRN 02/18/21 02/18/21 History ascorbic acid (vitamin C) 500 mg 500 mg PO DAILY 02/18/21 02/18/21 History tablet (Vitamin C) aspirin 81 mg tablet,delayed 81 mg PO DAILY 02/18/21 02/18/21 History release atenolol 25 mg tablet 25 mg PO DAILY 02/18/21 02/18/21 History atorvastatin 20 mg tablet 20 mg PO HS 02/18/21 02/18/21 History calcium carbonate-vitamin D3 600 1 cap PO DAILY 02/18/21 02/18/21 History mg calcium-200 unit capsule (Calcium 600 + D(3)) cholecalciferol (vitamin D3) 50 50 mcg PO DAILY 02/18/21 02/18/21 History mcg (2,000 unit) capsule (Vitamin D3) clopidogrel 75 mg tablet 75 mg PO DAILY 02/18/21 02/18/21 History coQ10 (ubiquinol) 200 mg capsule 200 mg PO DAILY 02/18/21 02/18/21 History epinephrine 0.3 mg/0.3 mL 0.3 mg IM DIRECTED PRN 02/18/21 02/18/21 History injection, auto-injector (EpiPen) ezetimibe 10 mg tablet 10 mg PO DAILY 02/18/21 02/18/21 History furosemide 40 mg tablet 40 mg PO BID 02/18/21 02/18/21 History gabapentin 400 mg capsule 400 mg PO TID 02/18/21 02/18/21 History levetiracetam 500 mg tablet 500 mg PO BID 02/18/21 02/18/21 History multivitamin 1 tab PO DAILY 02/18/21 02/18/21 History psyllium seed (sugar) oral powder 1 tbsp PO DAILY PRN 02/18/21 02/18/21 History (Metamucil (sugar)) sildenafil (pulm.hypertension) 20 20 mg PO BID 02/18/21 02/18/21 History mg tablet terazosin 10 mg capsule 10 mg PO HS 02/18/21 02/18/21 History Patient History Social History Smoking Status: Former smoker Tobacco Type: Cigarettes Smoking End Date: 40 yra; Second Hand Exposure: No; Do You Dip or Chew Tobacco: No; Tobacco Cessation Education Requested by Patient: No Hx Alcohol Use: Yes Alcohol type: beer Hx Substance Use: No Preferred Language: Romanian Communication Ability: Effective Educational Psychology Teacher Required: No Beliefs That Will Affect Care: None Current Living Situation: Spouse Other Information That Helps Us Care for You: No Feels Safe at Home: Yes Safety Concerns: Feels Safe At This Time Assistive Devices: Oxygen - at Night Review of Systems Review of Systems: All systems reviewed & are unremarkable except as noted in HPI & below Physical Exam Constitutional: male with pale complexion mildly distant with no acute distress Eyes: PERRL, conjunctivae normal, anicteric sclerae ENMT: external ear and nose normal, oropharynx normal Neck: trachea midline, no thyromegaly Respiratory: Auscultation: + rales (Bibasilar) Cardiovascular: Rate/Rhythm: + tachycardic and + irregularly irregular Heart Sounds: normal S1 and + murmur (Harsh grade 3/6 systolic); + abnormal S2 (Diminished) and no gallop Palpation: normal PMI Vessels: normal carotid upstroke and radial pulses present; no JVD and no carotid bruit Extremities: + edema (Trace) Gastrointestinal (Abdomen): normal bowel sounds, soft, nontender, no hepatosplenomegaly Musculoskeletal: no cyanosis or clubbing, extremities motor strength 5/5 Skin: no rashes, warm and dry Neurologic: PERRL, EOMI, accommodation nl, no face palsy, no dysarthria Psychiatric: A+Ox3, euthymic affect Results & Data ([facility]) Vital Signs (Past 12 Hours) Vital Signs Temp Pulse Pulse Resp BP Pulse Ox 02/19/21 11:35 37 C 116 H 19 125/69 90 02/19/21 06:54 37.1 C 124 H 18 125/64 93 02/19/21 04:57 120 H 22 93 02/19/21 04:47 121 H 02/19/21 04:03 37.4 C 118 H 20 127/63 93 02/19/21 03:41 115 H 02/19/21 03:09 142 H 02/19/21 02:09 113/66 Laboratory Results Laboratory Results - last 24 hr 02/18/21 02/18/21 02/18/21 16:28 16:28 16:28 WBC 13.84 H RBC 3.43 L Hgb 9.9 L Hct 28.5 L MCV 83.1 MCH 28.9 MCHC 34.7 RDW Std Deviation 44.3 RDW Coeff of Ruth 14.5 Plt Count 286 MPV 9.0 Immature Gran % (Auto) 0.1 Neut % (Auto) 85.4 Lymph % (Auto) 3.6 Hayes % (Auto) 10.8 Eos % (Auto) 0.0 Baso % (Auto) 0.1 Reticulocyte % (Auto) 1.4 Neut # (Auto) 11.81 H Lymph # (Auto) 0.50 L Hayes # (Auto) 1.50 H Eos # (Auto) 0.00 Baso # (Auto) 0.01 Reticulocyte # 0.05 Immature Gran # (Auto) 0.02 PT 10.4 INR 1.0 APTT PTT Ratio ABG pH ABG pCO2 ABG pO2 ABG HCO3 ABG O2 Saturation ABG Base Excess Yasmany Test Oxygen Given Sodium 125 L Potassium 3.9 Chloride 91 L Carbon Dioxide 26 Anion Gap 8.0 BUN 19 H Creatinine 1.34 Est Cr Clr Drug Dosing 39.8 Est GFR ( Amer) 56.8 Est GFR (Non-Af Amer) 49.0 BUN/Creatinine Ratio 14.2 Glucose 155 H Estimat Average Glucose Hemoglobin A1c Osmolality Lactate Calcium 8.9 Magnesium 1.7 L Iron TIBC Transferrin Ferritin Total Bilirubin 0.7 AST 32 ALT 19 Alkaline Phosphatase 83 Total Creatine Kinase 278 Troponin I 0.992 H* Total Protein 7.2 Albumin 2.8 L Globulin 4.4 H Albumin/Globulin Ratio 0.6 L Vitamin B12 Folate Procalcitonin TSH 0.597 Urine Color Urine Appearance Urine pH Ur Specific Delta Urine Protein Urine Glucose (UA) Urine Ketones Urine Blood Urine Nitrite Urine Bilirubin Urine Urobilinogen Ur Leukocyte Esterase Urine WBC (Auto) Urine RBC (Auto) U Hyaline Cast (Auto) U Epithel Cells (Auto) Urine Bacteria (Auto) Urine Yeast Urine Osmolality Ur Random Sodium Ethyl Alcohol mg/dL Lyme Disease IgG Ab Lyme Disease IgM Ab COVID-19 Eval Order SARS-CoV-2 (PCR) Blood Type Antibody Screen 02/18/21 02/18/21 02/18/21 16:51 16:51 16:51 WBC RBC Hgb Hct MCV MCH MCHC RDW Std Deviation RDW Coeff of Ruth Plt Count MPV Immature Gran % (Auto) Neut % (Auto) Lymph % (Auto) Hayes % (Auto) Eos % (Auto) Baso % (Auto) Reticulocyte % (Auto) Neut # (Auto) Lymph # (Auto) Hayes # (Auto) Eos # (Auto) Baso # (Auto) Reticulocyte # Immature Gran # (Auto) PT INR APTT PTT Ratio ABG pH ABG pCO2 ABG pO2 ABG HCO3 ABG O2 Saturation ABG Base Excess Yasmany Test Oxygen Given Sodium Potassium Chloride Carbon Dioxide Anion Gap BUN Creatinine Est Cr Clr Drug Dosing Est GFR ( Amer) Est GFR (Non-Af Amer) BUN/Creatinine Ratio Glucose Estimat Average Glucose Hemoglobin A1c Osmolality Lactate Calcium Magnesium Iron TIBC Transferrin Ferritin Total Bilirubin AST ALT Alkaline Phosphatase Total Creatine Kinase Troponin I Total Protein Albumin Globulin Albumin/Globulin Ratio Vitamin B12 Folate Procalcitonin TSH Urine Color Yellow Urine Appearance Cloudy A Urine pH 6.5 Ur Specific Delta 1.011 Urine Protein 2+ H Urine Glucose (UA) Negative Urine Ketones Negative Urine Blood 1+ H Urine Nitrite Negative Urine Bilirubin Negative Urine Urobilinogen Negative Ur Leukocyte Esterase Negative Urine WBC (Auto) 1-5 Urine RBC (Auto) 0-4 U Hyaline Cast (Auto) 1-5 U Epithel Cells (Auto) >30 H Urine Bacteria (Auto) Negative Urine Yeast Not Reportable Urine Osmolality Ur Random Sodium Ethyl Alcohol mg/dL Lyme Disease IgG Ab Lyme Disease IgM Ab COVID-19 Eval Order Covid19 at [facility] SARS-CoV-2 (PCR) NEGATIVE Blood Type Antibody Screen 02/18/21 02/18/21 02/18/21 20:20 20:20 20:23 WBC RBC Hgb Hct MCV MCH MCHC RDW Std Deviation RDW Coeff of Ruth Plt Count MPV Immature Gran % (Auto) Neut % (Auto) Lymph % (Auto) Hayes % (Auto) Eos % (Auto) Baso % (Auto) Reticulocyte % (Auto) Neut # (Auto) Lymph # (Auto) Hayes # (Auto) Eos # (Auto) Baso # (Auto) Reticulocyte # Immature Gran # (Auto) PT INR APTT PTT Ratio ABG pH ABG pCO2 ABG pO2 ABG HCO3 ABG O2 Saturation ABG Base Excess Yasmany Test Oxygen Given Sodium Potassium Chloride Carbon Dioxide Anion Gap BUN Creatinine Est Cr Clr Drug Dosing Est GFR ( Amer) Est GFR (Non-Af Amer) BUN/Creatinine Ratio Glucose Estimat Average Glucose Hemoglobin A1c Osmolality 265 L Lactate Calcium Magnesium Iron TIBC Transferrin Ferritin Total Bilirubin AST ALT Alkaline Phosphatase Total Creatine Kinase Troponin I Total Protein Albumin Globulin Albumin/Globulin Ratio Vitamin B12 Folate Procalcitonin TSH Urine Color Urine Appearance Urine pH Ur Specific Delta Urine Protein Urine Glucose (UA) Urine Ketones Urine Blood Urine Nitrite Urine Bilirubin Urine Urobilinogen Ur Leukocyte Esterase Urine WBC (Auto) Urine RBC (Auto) U Hyaline Cast (Auto) U Epithel Cells (Auto) Urine Bacteria (Auto) Urine Yeast Urine Osmolality 390 L Ur Random Sodium 11 Ethyl Alcohol mg/dL Lyme Disease IgG Ab Lyme Disease IgM Ab COVID-19 Eval Order SARS-CoV-2 (PCR) Blood Type Antibody Screen 02/18/21 02/18/21 02/18/21 20:23 20:23 20:23 WBC RBC Hgb Hct MCV MCH MCHC RDW Std Deviation RDW Coeff of Ruth Plt Count MPV Immature Gran % (Auto) Neut % (Auto) Lymph % (Auto) Hayes % (Auto) Eos % (Auto) Baso % (Auto) Reticulocyte % (Auto) Neut # (Auto) Lymph # (Auto) Hayes # (Auto) Eos # (Auto) Baso # (Auto) Reticulocyte # Immature Gran # (Auto) PT INR APTT 31.4 H PTT Ratio 1.2 ABG pH ABG pCO2 ABG pO2 ABG HCO3 ABG O2 Saturation ABG Base Excess Yasmany Test Oxygen Given Sodium 126 L Potassium Chloride Carbon Dioxide Anion Gap BUN Creatinine Est Cr Clr Drug Dosing Est GFR ( Amer) Est GFR (Non-Af Amer) BUN/Creatinine Ratio Glucose Estimat Average Glucose Hemoglobin A1c Osmolality Lactate Calcium Magnesium Iron 13 L TIBC 235 L Transferrin 176 L Ferritin 205.8 Total Bilirubin AST ALT Alkaline Phosphatase Total Creatine Kinase Troponin I 0.942 H* Total Protein Albumin Globulin Albumin/Globulin Ratio Vitamin B12 Folate Procalcitonin TSH Urine Color Urine Appearance Urine pH Ur Specific Delta Urine Protein Urine Glucose (UA) Urine Ketones Urine Blood Urine Nitrite Urine Bilirubin Urine Urobilinogen Ur Leukocyte Esterase Urine WBC (Auto) Urine RBC (Auto) U Hyaline Cast (Auto) U Epithel Cells (Auto) Urine Bacteria (Auto) Urine Yeast Urine Osmolality Ur Random Sodium Ethyl Alcohol mg/dL Lyme Disease IgG Ab Lyme Disease IgM Ab COVID-19 Eval Order SARS-CoV-2 (PCR) Blood Type A Negative Antibody Screen NEGATIVE 02/18/21 02/18/21 02/18/21 20:23 20:23 20:23 WBC RBC Hgb Hct MCV MCH MCHC RDW Std Deviation RDW Coeff of Ruth Plt Count MPV Immature Gran % (Auto) Neut % (Auto) Lymph % (Auto) Hayes % (Auto) Eos % (Auto) Baso % (Auto) Reticulocyte % (Auto) Neut # (Auto) Lymph # (Auto) Hayes # (Auto) Eos # (Auto) Baso # (Auto) Reticulocyte # Immature Gran # (Auto) PT INR APTT PTT Ratio ABG pH ABG pCO2 ABG pO2 ABG HCO3 ABG O2 Saturation ABG Base Excess Yasmany Test Oxygen Given Sodium Potassium Chloride Carbon Dioxide Anion Gap BUN Creatinine Est Cr Clr Drug Dosing Est GFR ( Amer) Est GFR (Non-Af Amer) BUN/Creatinine Ratio Glucose Estimat Average Glucose Hemoglobin A1c Osmolality Lactate 1.2 Calcium Magnesium Iron TIBC Transferrin Ferritin Total Bilirubin AST ALT Alkaline Phosphatase Total Creatine Kinase Troponin I Total Protein Albumin Globulin Albumin/Globulin Ratio Vitamin B12 478 Folate > 20.00 Procalcitonin 0.31 TSH Urine Color Urine Appearance Urine pH Ur Specific Delta Urine Protein Urine Glucose (UA) Urine Ketones Urine Blood Urine Nitrite Urine Bilirubin Urine Urobilinogen Ur Leukocyte Esterase Urine WBC (Auto) Urine RBC (Auto) U Hyaline Cast (Auto) U Epithel Cells (Auto) Urine Bacteria (Auto) Urine Yeast Urine Osmolality Ur Random Sodium Ethyl Alcohol mg/dL Lyme Disease IgG Ab Negative Lyme Disease IgM Ab Negative COVID-19 Eval Order SARS-CoV-2 (PCR) Blood Type Antibody Screen 02/18/21 02/18/21 02/19/21 20:23 20:23 05:00 WBC 10.74 RBC 3.31 L Hgb 9.5 L Hct 27.5 L MCV 83.1 MCH 28.7 MCHC 34.5 RDW Std Deviation 44.1 RDW Coeff of Ruth 14.4 Plt Count 268 MPV 8.7 Immature Gran % (Auto) 0.3 Neut % (Auto) 90.9 Lymph % (Auto) 2.6 Hayes % (Auto) 6.1 Eos % (Auto) 0.0 Baso % (Auto) 0.1 Reticulocyte % (Auto) Neut # (Auto) 9.77 H Lymph # (Auto) 0.28 L Hayes # (Auto) 0.65 H Eos # (Auto) 0.00 Baso # (Auto) 0.01 Reticulocyte # Immature Gran # (Auto) 0.03 H PT INR APTT PTT Ratio ABG pH ABG pCO2 ABG pO2 ABG HCO3 ABG O2 Saturation ABG Base Excess Yasmany Test Oxygen Given Sodium Potassium Chloride Carbon Dioxide Anion Gap BUN Creatinine Est Cr Clr Drug Dosing Est GFR ( Amer) Est GFR (Non-Af Amer) BUN/Creatinine Ratio Glucose Estimat Average Glucose 140 Hemoglobin A1c 6.5 H Osmolality Lactate Calcium Magnesium Iron TIBC Transferrin Ferritin Total Bilirubin AST ALT Alkaline Phosphatase Total Creatine Kinase Troponin I Total Protein Albumin Globulin Albumin/Globulin Ratio Vitamin B12 Folate Procalcitonin TSH Urine Color Urine Appearance Urine pH Ur Specific Delta Urine Protein Urine Glucose (UA) Urine Ketones Urine Blood Urine Nitrite Urine Bilirubin Urine Urobilinogen Ur Leukocyte Esterase Urine WBC (Auto) Urine RBC (Auto) U Hyaline Cast (Auto) U Epithel Cells (Auto) Urine Bacteria (Auto) Urine Yeast Urine Osmolality Ur Random Sodium Ethyl Alcohol mg/dL < 3.0 Lyme Disease IgG Ab Lyme Disease IgM Ab COVID-19 Eval Order SARS-CoV-2 (PCR) Blood Type Antibody Screen 02/19/21 02/19/21 02/19/21 05:00 05:00 07:12 WBC RBC Hgb Hct MCV MCH MCHC RDW Std Deviation RDW Coeff of Ruth Plt Count MPV Immature Gran % (Auto) Neut % (Auto) Lymph % (Auto) Hayes % (Auto) Eos % (Auto) Baso % (Auto) Reticulocyte % (Auto) Neut # (Auto) Lymph # (Auto) Hayes # (Auto) Eos # (Auto) Baso # (Auto) Reticulocyte # Immature Gran # (Auto) PT Cancelled INR Cancelled APTT 51.8 H* PTT Ratio 2.0 ABG pH 7.48 H ABG pCO2 34 L ABG pO2 75 L ABG HCO3 24 ABG O2 Saturation 94.1 ABG Base Excess 0.9 Yasmany Test Pos Oxygen Given 2L Sodium 125 L Potassium 3.8 Chloride 92 L Carbon Dioxide 25 Anion Gap 8.0 BUN 19 H Creatinine 1.06 Est Cr Clr Drug Dosing 49.5 Est GFR ( Amer) 75.4 Est GFR (Non-Af Amer) 65.0 BUN/Creatinine Ratio 18.2 Glucose 152 H Estimat Average Glucose Hemoglobin A1c Osmolality Lactate Calcium 8.3 L Magnesium 2.1 Iron TIBC Transferrin Ferritin Total Bilirubin AST ALT Alkaline Phosphatase Total Creatine Kinase Troponin I Total Protein Albumin Globulin Albumin/Globulin Ratio Vitamin B12 Folate Procalcitonin TSH Urine Color Urine Appearance Urine pH Ur Specific Delta Urine Protein Urine Glucose (UA) Urine Ketones Urine Blood Urine Nitrite Urine Bilirubin Urine Urobilinogen Ur Leukocyte Esterase Urine WBC (Auto) Urine RBC (Auto) U Hyaline Cast (Auto) U Epithel Cells (Auto) Urine Bacteria (Auto) Urine Yeast Urine Osmolality Ur Random Sodium Ethyl Alcohol mg/dL Lyme Disease IgG Ab Lyme Disease IgM Ab COVID-19 Eval Order SARS-CoV-2 (PCR) Blood Type Antibody Screen Diagnostic Findings Echocardiogram 11/03/2020, [facility] Gavino Miller The left ventricular cavity size is normal. The LV wall thickness is moderately increased (concentric). The left ventricular wall motion is normal. The qualitative LV ejection fraction is 50-54% (normal). The left ventricular diastolic function is severely abnormal with a restrictive filling pattern (grade III). The left atrium is severely enlarged (>48 ml/m^2,). The right atrium is mildly enlarged. The aortic valve has three leaflets. The aortic valve is severely calcified. The aortic valve opening is severely reduced. Severe aortic valve stenosis is present. Peak instantaneous pressure gradient across the aortic valve is approximately 68 mmHg, with mean gradient 40 mmHg, and calculated aortic valve orifice area of <0.5 cm2.. There is severe mitral annular calcification. There is focal thickening of the posterior mitral valve leaflet(s). Mild mitral regurgitation is present. The atrial septal closure device is visualized. By color flow Doppler, there is evidence of [id number] flow at the superior edge of the closure device. Flow appears consistent with that seen on previous study. Normal IVC size and collapsability with inspiration indicates a normal right atrial pressure of 3 mmHg. The estimated pulmonary artery systolic pressure is 75mm Hg. Compared to previous study dated 03/24/2020? severity of aortic valve stenosis appears stable and flow around the ASD closure device is unchanged. ECG Additional Comments: EKG 02/18/2021: Atrial fibrillation with rapid response, rate 117 bpm, incomplete right bundle branch block
[2021-02-19] MEDS ORDERED: FUROSEMIDE 40 MG in SYRINGE 0 ML IV ONE (11:55)
[2021-02-19] MEDS ORDERED: FUROSEMIDE 40 MG/4 ML VIAL IV ONE (11:59)
[2021-02-19] MEDS: AMIODARONE 200 MG TAB PO SCH ×2 (12:24→17:18)
[2021-02-19] MEDS ORDERED: ACETAMINOPHEN 325 MG TAB PO STA (19:44)
--- NOTE | 2021-02-19 19:44 | Communication Note ---
Date of Service: February 19, 2021 Overnight developments 02/19/21 7:45 PM Patient noted to be febrile, tachycardic, with dry cough symptoms Doxycycline initiated for possible atypical pneumonia 8 PM Made aware by RN of increased patient restlessness, agitation. OLEG S protocol initiated for possible alcohol withdrawal. Ativan given following scale. 10 PM Made aware by RN of decreased patient responsiveness, patient moaning and groaning with sternal rubs. SBP 80s, cardiac rate 130s as per RN AP Encephalopathy Multifactorial : Benzo administration for possible alcohol withdrawal Hypotension, rapid A. fib Rule out IC bleed given IV Heparin for A. fib Stop Ativan (Hold off from giving Flumazenil given patient seizure history.) IV albumin, IV amiodarone for rapid A. fib in the setting of hypotension Hold Terazosin, decrease maintenance beta-javier dose for now given hypotension CT head Re: Encephalopathy Hold IV Heparin until CT results known 02/20/[address] initial read no bleed IV Heparin order reactivated serum sodium 123 Serum creatinine 1.4 AP Hyponatremia, ARF Hold home diuretic for now Nephrology consultation Re: Hyponatremia Will relay to AM provider.
[2021-02-19] MEDS ORDERED: METOPROLOL TARTRATE 1 MG/ML VIAL IV STA (19:47)
[2021-02-19] MEDS ORDERED: DOXYCYCLINE HYCLATE 100 MG in DEXTROSE 5% 100 ML IV STA (19:57)
[2021-02-19] MEDS ORDERED: MELATONIN 3 MG TAB PO PRN (20:00)
[2021-02-19] MEDS ORDERED: LORazepam 2 MG/4 ML VIAL IV PRN (20:01)
[2021-02-19] MEDS ORDERED: LORazepam 3 MG/6 ML VIAL IV PRN (20:01)
[2021-02-19] MEDS ORDERED: LORazepam 1 MG/2 ML VIAL IV PRN (20:01)
[2021-02-19] MEDS ORDERED: ATIVAN IV ALCOHOL WITHDRAWL IV PRN (20:01)
[2021-02-19] MEDS: ATORVASTATIN 20 MG TAB PO SCH (20:33)
[2021-02-19] MEDS ORDERED: CARBOHYDRATES FOR HYPOGLYCEMIA PO PRN (21:00)
[2021-02-19] MEDS ORDERED: GLUCOSE 40% GEL 15 GM TUBE PO PRN (21:00)
[2021-02-19] MEDS ORDERED: TERAZOSIN HCL 5 MG CAP PO SCH (21:00)
[2021-02-19] MEDS ORDERED: DEXTROSE 50% 50 ML SYRINGE IV PRN (21:00)
[2021-02-19] MEDS ORDERED: GLUCOSE 10 TABS/TUBE PO PRN (21:00)
[2021-02-19] MEDS ORDERED: GLUCAGON FOR INJ 1 MG VIAL SQ PRN (21:00)
[2021-02-19 21:04] LABS: BUN Creatinine Ratio 18.7 (10-20); Calcium 7.1 mg/dl (8.5-10.1); Creatinine Clr Calc Pharmacy 48.1 ml/min; Est GFR (African American) 72.9 ml/min; Est GFR (Non-African American) 62.9 ml/min; Magnesium 2.1 mg/dl (1.8-2.4); Potassium 3.1 mmol/L (3.5-5.1)
[2021-02-19] MEDS ORDERED: POTASSIUM CHLORIDE CRTAB 20 MEQ TABCR PO STA (21:14)
[2021-02-19] MEDS ORDERED: [UNRECOGNIZED DRUG - OTHER] IV STA (22:11)
[2021-02-19] MEDS ORDERED: DRIP IV STA (22:11)
[2021-02-19] MEDS ORDERED: ALBUMIN 25% 12.5 GM/50 ML VIAL IV ONE (22:12)
[2021-02-19] MEDS ORDERED: AMIODARONE / D5W 150 MG/100 ML BAG IV STA (22:21)
[2021-02-19] MEDS ORDERED: STAT IV Infusion **Titration per Protocol STA (22:21)
[2021-02-19] MEDS ORDERED: AMIODARONE IV BOLUS & DRIP IV STA (22:21)
[2021-02-19] MEDS ORDERED: 0.2 MICRON FILTER SET 1 EA IV ONE (22:21)
[2021-02-19 22:39] LABS: Oxygen Saturation VBG 85.4 %; pH VBG 7.43 (7.36-7.41)
[2021-02-19] MEDS: INSULIN ASPART 100 UNITS/ML 3 ML PEN SC SCH (22:42)
[2021-02-19] MEDS: POTASSIUM CHLORIDE / WTR 10 MEQ/100 ML PLCT IV SCH ×2 (22:44→23:43)
[2021-02-19] MEDS ORDERED: AMIODARONE / D5W 360 MG/200 ML BAG IV ONE (22:45)
--- NOTE | 2021-02-19 23:27 | Hospitalist Progress Note ---
Date of Service February 19, 2021 Assessment & Plan (1) Atrial fibrillation, new onset: Plan: Present on admission weakness s/p influenza vaccination few days ago EKG on admission showed Afib Pt was started on Heparin drip cardiology on baord Continue amiodarone drip Right heart failure due to pulmonary hypertension CXR showed cardiomegaly with interval development of pulmonary edema. Cardiology on board Continue lasix IV Will monitor electrolytes while on on IV Lasix Severe calcific aortic stenosis: Echo showed severe calcific aortic stenosis with peak aortic velocitiy 4.5 m/s Continue monitor closely Hyponatremia Possible related to fluid overload Na 125 on admission, then improved to 132 Continue IVF Lasix Monitor BMP Seizure dx Continue outpatient med Stable CAD s/p stent Continue aspirin, statin, palvix and beta javier Continue Monitor Alcohol abuse Drink about 4 to 5 beers daily No history of alcohol withdrawn Will monitor closely for sign of DT or alcohol withdrawal Counseling on alcohol cessation Weakness Mosly due to acute illness Continue PT/OT Fall precaution DVT prophylaxis with IV Heparin Full code Patient's requesting update providers. Ms. Nina Dunham, contact #[phone]. Admission and Anticipated Discharge Date Admission Date: February 18, 2021 Subjective Pt was seen and examined for follow up of afib, weakness and SOB Lying in bed with no acute distress Pt said that his breathing alitlle improves He said that he does not use oxygen at home Currently denies any chest pain, palpitation and SB Review of Systems Review of Systems: All systems reviewed & are unremarkable except as noted in Subjective Physical Exam Physical Exam: General- No acute distress Head- atraumatic Eyes- PERRL, EOMI, ENT- oropharynx clear Neck- supple, no JVD Lungs- +coarse BS Heart- irregular rhythm; +murmur Abdomen- normal bowel sounds, soft, nontender Extremities- no calf tenderness Neuro- alert, oriented x 3; PERRL, EOMI; no facial palsy; no dysarthria Skin- warm & dry Results & Data Results & Data ([facility]) Vital Signs (Past 12 Hours) Vital Signs Temp Pulse Resp BP BP Pulse Ox 02/19/21 22:58 112 H 20 136/93 94 02/19/21 22:38 126 H 93/60 L 96 02/19/21 21:39 38.0 C H 02/19/21 21:30 38 C H 134 H 16 85/57 L 95 02/19/21 19:41 38.4 C H 131 H 22 139/63 95 02/19/21 15:44 37.5 C 122 H 20 133/66 93 02/19/21 11:35 37 C 116 H 19 125/69 90
[2021-02-20] MEDS ORDERED: POTASSIUM CHLORIDE CRTAB 20 MEQ TABCR PO ONE
[2021-02-20] MEDS: POTASSIUM CHLORIDE / WTR 10 MEQ/100 ML PLCT IV SCH ×4 (01:09→04:05)
[2021-02-20] MEDS ORDERED: ACETAMINOPHEN 1000 MG/100 ML IV IV ONE (01:28)
[2021-02-20] MEDS ORDERED: methylPREDNISolone 20 MG in SYRINGE 0 ML IV ONE (01:45)
[2021-02-20] MEDS: INSULIN ASPART 100 UNITS/ML 3 ML PEN SC SCH ×5 (02:09→20:37)
[2021-02-20] MEDS: HEPARIN SODIUM/DEXTROSE 25,000 UNITS/500 ML BAG IV SCH ×2 (02:56→22:59)
[2021-02-20] MEDS ORDERED: CALCIUM GLUCONATE 10% 1,000 MG in SODIUM CHLORIDE 0.9% 50 ML IV STA (03:14)
[2021-02-20 03:37] LABS: Hematocrit (blood only) 26.9 % (42-52); Hemoglobin 9.3 g/dL (14.0-18.0); Mean Corpuscular Hgb Conc 34.6 g/dL (32-36); Mean Corpuscular Volume 83.8 fL (80-100); Mean Platelet Volume 8.8 fL (7.4-10.4); Platelet Count 291 K/uL (130-400); RDW Coefficient of Variation 14.5 % (11.5-14.5); RDW Standard Deviation 45.3 fL (36.4-46.3); Red Blood Count 3.21 M/uL (4.7-6.1); White Blood Count 13.51 K/uL (4.8-10.8)
[2021-02-20 03:51] LABS: Partial Thromboplastin Ratio 1.6
[2021-02-20 03:57] LABS: BUN Creatinine Ratio 18.4 (10-20); Calcium 8.2 mg/dl (8.5-10.1); Creatinine Clr Calc Pharmacy 36.7 ml/min; Est GFR (African American) 52.5 ml/min; Est GFR (Non-African American) 45.3 ml/min; Potassium 4.3 mmol/L (3.5-5.1)
[2021-02-20] MEDS: AMIODARONE / D5W 360 MG/200 ML BAG IV SCH ×2 (04:19→17:58)
[2021-02-20] MEDS ORDERED: ALBUMIN 25% 12.5 GM/50 ML VIAL IV ONE (04:41)
[2021-02-20 04:55] LABS: Appearance Urine Cloudy (Clear); Bilirubin Urine Negative (Negative); Blood Urine Trace (Negative); Color Urine Yellow; Epithelial Cell Urine Auto >30 /lpf (0-5); Glucose Urine UA Negative (Negative); Ketones Urine Negative (Negative); Leukocyte Esterase Urine Negative (Negative); Nitrite Urine Negative (Negative); Protein Urine 2+ (Negative); RBC Urine Automated 0-4 /hpf (0-4); Specific Gravity Urine 1.015 (1.000-1.030); Urobilinogen Urine Negative (Negative)
[2021-02-20 05:22] LABS: Bacteria Urine Automated 1+ (Negative)
--- NOTE | 2021-02-20 07:41 | CT Scan Report ---
CT head/brain wo con CLINICAL HISTORY: 80 years-old Male with ams. Acutely altered mental status TECHNIQUE: Multiple axial CT images of the head were obtained without contrast. A dose lowering tech nique was utilized adhering to the principles of ALARA. CT DOSE: 614.27 mGy.cm COMPARISON: Head CT 02/18/2021 FINDINGS: No acute intracranial hemorrhage, midline shift, intracranial mass, hydrocephalus, territorial ischem ia or abnormal extra-axial collection. 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 Age-related invol utional changes. White matter hypodensities suggestive of chronic microvascular ischemic disease. The calvarium is intact. The paranasal sinuses, mastoid air cells, and middle ear cavities are clear . IMPRESSION: No acute intracranial abnormality. ACT 112: Negative or not required by law. The above report was generated using voice recognition software. It may contain grammatical, syntax o r spelling errors. Electronically signed by: Vikas Mcdonald M.D. 02/20/2021 7:40 AM
--- NOTE | 2021-02-20 08:20 | XRay Report ---
SINGLE VIEW CHEST CLINICAL HISTORY: Acute renal insufficiency. FINDINGS: An AP, portable, upright chest radiograph is compared to study dated 02/19/2021 and correlat ed with chest CT dated 11/16/2015. The heart is enlarged noting atherosclerotic calcification of the th oracic aorta. There is pulmonary vascular congestion. Bilateral airspace opacities are noted. No larg e pleural effusion or pneumothorax is seen. The skeletal structures are osteopenic. The bony thorax i s grossly intact. Fusion hardware is seen in the lower cervical spine. IMPRESSION: 1. Cardiomegaly with evidence of congestive failure. 2. Bilateral airspace opacities likely represent mild pulmonary edema. Correlate clinically for evide nce of a superimposed infectious/inflammatory pneumonitis. ACT 112: Negative or not required by law. Electronically signed by: Ceasar Higgins M.D. 02/20/2021 8:19 AM
[2021-02-20] MEDS: MULTIVITAMIN TAB PO SCH (08:34)
[2021-02-20] MEDS: guaiFENesin 600 MG TABCR PO SCH ×2 (08:35→20:34)
[2021-02-20] MEDS: ASPIRIN 81 MG ECTAB PO SCH (08:35)
[2021-02-20] MEDS: GABAPENTIN 100 MG CAP PO SCH ×3 (08:36→20:36)
[2021-02-20] MEDS: POTASSIUM CHLORIDE CRTAB 20 MEQ TABCR PO SCH ×2 (08:37→20:33)
[2021-02-20] MEDS: DOXYCYCLINE HYCLATE 100 MG CAP PO SCH ×2 (08:37→20:35)
[2021-02-20] MEDS: levETIRAcetam 500 MG TAB PO SCH ×2 (08:37→20:34)
[2021-02-20] MEDS: EZETIMIBE 10 MG TABLET PO SCH (08:38)
[2021-02-20] MEDS: AMIODARONE 200 MG TAB PO SCH ×3 (08:38→17:42)
[2021-02-20] MEDS: FOLIC ACID 1 MG TAB PO SCH (08:38)
[2021-02-20] MEDS: CLOPIDOGREL BISULFATE 75 MG TAB PO SCH (08:39)
[2021-02-20] MEDS: THIAMINE HCL 100 MG TAB PO SCH (08:39)
[2021-02-20] MEDS: INSULIN GLARGINE SOLOSTAR 100 UNITS/ML 3 ML PEN SC SCH (08:39)
[2021-02-20] MEDS ORDERED: METOPROLOL TARTRATE 25 MG TAB PO SCH (09:00)
[2021-02-20] MEDS ORDERED: METOPROLOL TARTRATE 50 MG TAB PO SCH (09:00)
[2021-02-20 10:45] LABS: Partial Thromboplastin Ratio 2.4
[2021-02-20 10:47] LABS: BUN Creatinine Ratio 19.3 (10-20); Calcium 8.5 mg/dl (8.5-10.1); Creatinine Clr Calc Pharmacy 37.2 ml/min; Est GFR (African American) 53.4 ml/min; Est GFR (Non-African American) 46.1 ml/min; Partial Thromboplastin Time 62.1 Seconds (21.0-31.0); Potassium 4.1 mmol/L (3.5-5.1)
--- NOTE | 2021-02-20 13:10 | Cardiology Progress Note ---
Date of Service February 20, 2021 Assessment & Plan (1) Atrial fibrillation, new onset: (2) Severe calcific aortic stenosis: (3) Acute hyponatremia: (4) Right heart failure due to pulmonary hypertension: Plan: Complex and ill 80-year-old male with severe calcific aortic stenosis presents with newly observed atrial fibrillation of possible several days in duration. Heart rates remain elevated but on initial treatment with IV fluids and beta and calcium channel blockers developed pulmonary edema. Presentation notable for hyponatremia and anemia as well. Plan: Continue IV heparin but follow hemoglobins closely given anemia on presentation Continue oral amiodarone discontinue current IV infusion with bag complete Additional dose of IV furosemide today and may need further dosing for persistent heart failure. Presence of presenting complaint of syncope, acute heart failure and atrial fibrillation with rapid response in the setting of severe aortic stenosis and severe pulmonary hypertension extremely high risk for further deterioration Admission and Anticipated Discharge Date Admission Date: February 18, 2021 Subjective Patient was seen and examined, chart, medications, telemetry reviewed Events of prior evening noted. Concerns raised regarding possible alcohol withdrawal symptoms of tachycardia agitation and low-grade temperature. Treated with withdrawal protocol but resulted in marked obtundation. CT of head without acute event. Amiodarone increased to IV form Chest x-ray persistent interstitial edema Patient is morning notes no acute complaints. Is awake and conversant. Denies chest pains or sensed tachypalpitations. No fevers or chills. Patient does have a loose rhonchorous cough Review of Systems Review of Systems: All systems reviewed & are unremarkable except as noted in Subjective Physical Exam Eyes: PERRL, conjunctivae normal, anicteric sclerae ENMT: external ear and nose normal, oropharynx normal Neck: trachea midline, no thyromegaly Respiratory: Auscultation: + rales (Bibasilar) Cardiovascular: Rate/Rhythm: + tachycardic and + irregularly irregular Heart Sounds: normal S1 and + murmur (Harsh grade 3/6 systolic); + abnormal S2 (Diminished) and no gallop Palpation: normal PMI Vessels: radial pulses present; no JVD and no carotid bruit Extremities: + edema (Trace) Gastrointestinal (Abdomen): normal bowel sounds, soft, nontender, no hepatosplenomegaly Musculoskeletal: no cyanosis or clubbing, extremities motor strength 5/5 Skin: no rashes, warm and dry Neurologic: PERRL, EOMI, accommodation nl, no face palsy, no dysarthria Psychiatric: A+Ox3, euthymic affect Results & Data ([facility]) Vital Signs (Past 12 Hours) Vital Signs Temp Pulse Resp BP Pulse Ox 02/20/21 07:11 37.2 C 119 H 20 113/68 97 02/20/21 04:25 37.4 C 112 H 28 H 106/66 100 02/20/21 01:13 108 H 24 102/65 91 Laboratory Results Laboratory Results - last 24 hr 02/19/21 02/19/21 02/19/21 20:11 21:35 22:22 WBC RBC Hgb Hct MCV MCH MCHC RDW Std Deviation RDW Coeff of Ruth Plt Count MPV APTT PTT Ratio VBG pH VBG pCO2 VBG pO2 VBG HCO3 VBG O2 Saturation VBG Base Excess Barometric Pressure Sodium 132 L D Potassium 3.1 L D Chloride 73 L Carbon Dioxide 22 Anion Gap 37.0 H BUN 20 H Creatinine 1.09 Est Cr Clr Drug Dosing 48.1 Est GFR ( Amer) 72.9 Est GFR (Non-Af Amer) 62.9 BUN/Creatinine Ratio 18.7 Glucose 131 H POC Glucose 171 H Lactate Calcium 7.1 L Ionized Calcium Cancelled Magnesium 2.1 Ammonia Urine Color Urine Appearance Urine pH Ur Specific Buhl Urine Protein Urine Glucose (UA) Urine Ketones Urine Blood Urine Nitrite Urine Bilirubin Urine Urobilinogen Ur Leukocyte Esterase Urine WBC (Auto) Urine RBC (Auto) U Hyaline Cast (Auto) U Epithel Cells (Auto) Urine Bacteria (Auto) Granular Casts Urine Yeast 02/19/21 02/19/21 02/19/21 22:24 22:24 22:28 WBC RBC Hgb Hct MCV MCH MCHC RDW Std Deviation RDW Coeff of Ruth Plt Count MPV APTT PTT Ratio VBG pH 7.43 H VBG pCO2 41 VBG pO2 54 VBG HCO3 27 VBG O2 Saturation 85.4 VBG Base Excess 2.0 Barometric Pressure 735.9 Sodium Potassium Chloride Carbon Dioxide Anion Gap BUN Creatinine Est Cr Clr Drug Dosing Est GFR ( Amer) Est GFR (Non-Af Amer) BUN/Creatinine Ratio Glucose POC Glucose Lactate 1.0 Calcium Ionized Calcium Magnesium Ammonia 33.8 H Urine Color Urine Appearance Urine pH Ur Specific Buhl Urine Protein Urine Glucose (UA) Urine Ketones Urine Blood Urine Nitrite Urine Bilirubin Urine Urobilinogen Ur Leukocyte Esterase Urine WBC (Auto) Urine RBC (Auto) U Hyaline Cast (Auto) U Epithel Cells (Auto) Urine Bacteria (Auto) Granular Casts Urine Yeast 02/19/21 02/20/21 02/20/21 22:58 00:04 01:26 WBC RBC Hgb Hct MCV MCH MCHC RDW Std Deviation RDW Coeff of Ruth Plt Count MPV APTT PTT Ratio VBG pH VBG pCO2 VBG pO2 VBG HCO3 VBG O2 Saturation VBG Base Excess Barometric Pressure Sodium Potassium Chloride Carbon Dioxide Anion Gap BUN Creatinine Est Cr Clr Drug Dosing Est GFR ( Amer) Est GFR (Non-Af Amer) BUN/Creatinine Ratio Glucose POC Glucose 157 H Lactate Calcium Ionized Calcium Cancelled 0.99 L Magnesium Ammonia Urine Color Urine Appearance Urine pH Ur Specific Buhl Urine Protein Urine Glucose (UA) Urine Ketones Urine Blood Urine Nitrite Urine Bilirubin Urine Urobilinogen Ur Leukocyte Esterase Urine WBC (Auto) Urine RBC (Auto) U Hyaline Cast (Auto) U Epithel Cells (Auto) Urine Bacteria (Auto) Granular Casts Urine Yeast 02/20/21 02/20/21 02/20/21 03:11 03:11 03:11 WBC 13.51 H RBC 3.21 L Hgb 9.3 L Hct 26.9 L MCV 83.8 MCH 29.0 MCHC 34.6 RDW Std Deviation 45.3 RDW Coeff of Urth 14.5 Plt Count 291 MPV 8.8 APTT 41.0 H PTT Ratio 1.6 VBG pH VBG pCO2 VBG pO2 VBG HCO3 VBG O2 Saturation VBG Base Excess Barometric Pressure Sodium 123 L D Potassium 4.3 D Chloride 89 L Carbon Dioxide 26 Anion Gap 8.0 BUN 26 H Creatinine 1.43 H D Est Cr Clr Drug Dosing 36.7 Est GFR ( Amer) 52.5 Est GFR (Non-Af Amer) 45.3 BUN/Creatinine Ratio 18.4 Glucose 147 H POC Glucose Lactate Calcium 8.2 L D Ionized Calcium Magnesium Ammonia Urine Color Urine Appearance Urine pH Ur Specific Buhl Urine Protein Urine Glucose (UA) Urine Ketones Urine Blood Urine Nitrite Urine Bilirubin Urine Urobilinogen Ur Leukocyte Esterase Urine WBC (Auto) Urine RBC (Auto) U Hyaline Cast (Auto) U Epithel Cells (Auto) Urine Bacteria (Auto) Granular Casts Urine Yeast 02/20/21 02/20/21 02/20/21 04:25 08:46 08:47 WBC RBC Hgb Hct MCV MCH MCHC RDW Std Deviation RDW Coeff of Ruth Plt Count MPV APTT PTT Ratio VBG pH VBG pCO2 VBG pO2 VBG HCO3 VBG O2 Saturation VBG Base Excess Barometric Pressure Sodium Potassium Chloride Carbon Dioxide Anion Gap BUN Creatinine Est Cr Clr Drug Dosing Est GFR ( Amer) Est GFR (Non-Af Amer) BUN/Creatinine Ratio Glucose POC Glucose 507 H* 263 H Lactate Calcium Ionized Calcium Magnesium Ammonia Urine Color Yellow Urine Appearance Cloudy A Urine pH 5.0 Ur Specific Buhl 1.015 Urine Protein 2+ H Urine Glucose (UA) Negative Urine Ketones Negative Urine Blood Trace H Urine Nitrite Negative Urine Bilirubin Negative Urine Urobilinogen Negative Ur Leukocyte Esterase Negative Urine WBC (Auto) 1-5 Urine RBC (Auto) 0-4 U Hyaline Cast (Auto) 10-30 H U Epithel Cells (Auto) >30 H Urine Bacteria (Auto) 1+ H Granular Casts 1-5 H Urine Yeast Not Reportable 02/20/21 02/20/21 02/20/21 08:49 10:05 10:05 WBC RBC Hgb Hct MCV MCH MCHC RDW Std Deviation RDW Coeff of Ruth Plt Count MPV APTT 62.1 H* PTT Ratio 2.4 VBG pH VBG pCO2 VBG pO2 VBG HCO3 VBG O2 Saturation VBG Base Excess Barometric Pressure Sodium 123 L Potassium 4.1 Chloride 89 L Carbon Dioxide 26 Anion Gap 8.0 BUN 27 H Creatinine 1.41 H Est Cr Clr Drug Dosing 37.2 Est GFR ( Amer) 53.4 Est GFR (Non-Af Amer) 46.1 BUN/Creatinine Ratio 19.3 Glucose 238 H POC Glucose 232 H Lactate Calcium 8.5 Ionized Calcium Magnesium Ammonia Urine Color Urine Appearance Urine pH Ur Specific Buhl Urine Protein Urine Glucose (UA) Urine Ketones Urine Blood Urine Nitrite Urine Bilirubin Urine Urobilinogen Ur Leukocyte Esterase Urine WBC (Auto) Urine RBC (Auto) U Hyaline Cast (Auto) U Epithel Cells (Auto) Urine Bacteria (Auto) Granular Casts Urine Yeast 02/20/21 11:44 WBC RBC Hgb Hct MCV MCH MCHC RDW Std Deviation RDW Coeff of Ruth Plt Count MPV APTT PTT Ratio VBG pH VBG pCO2 VBG pO2 VBG HCO3 VBG O2 Saturation VBG Base Excess Barometric Pressure Sodium Potassium Chloride Carbon Dioxide Anion Gap BUN Creatinine Est Cr Clr Drug Dosing Est GFR ( Amer) Est GFR (Non-Af Amer) BUN/Creatinine Ratio Glucose POC Glucose 247 H Lactate Calcium Ionized Calcium Magnesium Ammonia Urine Color Urine Appearance Urine pH Ur Specific Buhl Urine Protein Urine Glucose (UA) Urine Ketones Urine Blood Urine Nitrite Urine Bilirubin Urine Urobilinogen Ur Leukocyte Esterase Urine WBC (Auto) Urine RBC (Auto) U Hyaline Cast (Auto) U Epithel Cells (Auto) Urine Bacteria (Auto) Granular Casts Urine Yeast
[2021-02-20] MEDS ORDERED: FUROSEMIDE 40 MG in SYRINGE 0 ML IV ONE (13:30)
[2021-02-20] MEDS ORDERED: [UNRECOGNIZED DRUG - REMARK] ONE (16:45)
--- NOTE | 2021-02-20 17:32 | Hospitalist Progress Note ---
Date of Service February 20, 2021 Assessment & Plan (1) Atrial fibrillation, new onset: Plan: Present on admission weakness s/p influenza vaccination few days ago EKG on admission showed Afib Continue iv Heparin drip cardiology on board Amiodarone drip changed to PO amiodarone Continue metoprolol Monitor hgb while on IV heparin drip Right heart failure due to pulmonary hypertension CXR showed cardiomegaly with interval development of pulmonary edema. Cardiology on board Continue lasix IV Will monitor electrolytes while on on IV Lasix Severe calcific aortic stenosis: Echo showed severe calcific aortic stenosis with peak aortic velocitiy 4.5 m/s Case discussed with Dr. Martín hairston recommended pt to transfer to a tertiary care since pt present with complaint of syncope, acute heart failure and atrial fibrillation with rapid response in the setting of severe aortic stenosis and severe pulmonary hypertension extremely high risk for further deterioration Case discussed with Cardiology Dr. Angeles in [facility] to transfer. Dr. Angeles accepted the patient for transfer but there was no bed now (waiting list for possible 24 to 48hrs) Will continue monitor closely Hyponatremia Possible related to fluid overload Na 125 on admission, then improved to 132 Na 123 today Continue IVF Lasix Nephrology on board recommended to continue Lasix and fluid restriction at 1.8L Monitor BMP Seizure dx Continue outpatient med Stable CAD s/p stent Continue aspirin, statin, palvix and beta javier Continue Monitor Alcohol abuse Drink about 4 to 5 beers daily No history of alcohol withdrawn Will monitor closely for sign of DT or alcohol withdrawal Counseling on alcohol cessation Weakness Mosly due to acute illness Continue PT/OT Fall precaution DVT prophylaxis with IV Heparin Full code Disposition Plan to transfer to [place] Accepting physician Dr. Angeles Patient's requesting update providers. Ms. Nina Dunham, contact #[phone]. Admission and Anticipated Discharge Date Admission Date: February 18, 2021 Subjective Pt was seen and examined for follow up of afib, weakness, confusion and SOB. L luz maria in bed with no acute distress Pt had a rough night where he was given Ativan for possible ciwa score for alcohol withdrawal, then he became minimally response where flumazenil was given Currently he is sitting in bed eating his lunch. I spoke to his son today over the phone in details and answered all his questions. Case discussed with [facility] in [place] Dr. Angeles about to transfer to [place] for pt to eval for severe calcific aortic valve stenosis. Dr. Angeles agreed to accept the patient for transfer, but there is no bed available for the next 24 to 48hrs. Pt will be on the waiting list Currently denies any chest pain, palpitation and dizziness Review of Systems Review of Systems: All systems reviewed & are unremarkable except as noted in Subjective Physical Exam Physical Exam: General- No acute distress Head- atraumatic Eyes- PERRL, EOMI, ENT- oropharynx clear Neck- supple, no JVD Lungs- +coarse BS Heart- irregular rhythm; +murmur Abdomen- normal bowel sounds, soft, nontender Extremities- no calf tenderness Neuro- alert, oriented x 3; PERRL, EOMI; no facial palsy; no dysarthria Skin- warm & dry Results & Data Results & Data ([facility]) Vital Signs (Past 12 Hours) Vital Signs Temp Pulse Resp BP Pulse Ox 02/20/21 16:03 36.8 C 128 H 18 122/73 97 02/20/21 07:11 37.2 C 119 H 20 113/68 97
[2021-02-20 19:26] LABS: BUN Creatinine Ratio 20.7 (10-20); Calcium 8.5 mg/dl (8.5-10.1); Creatinine Clr Calc Pharmacy 34.3 ml/min; Est GFR (African American) 48.4 ml/min; Est GFR (Non-African American) 41.7 ml/min; Potassium 4.4 mmol/L (3.5-5.1)
[2021-02-20] MEDS: METOPROLOL TARTRATE 25 MG TAB PO SCH (20:33)
[2021-02-20] MEDS: ATORVASTATIN 20 MG TAB PO SCH (20:35)
[2021-02-20] MEDS ORDERED: FUROSEMIDE 60 MG in SYRINGE 0 ML IV ONE (21:00)
--- NOTE | 2021-02-20 21:16 | Consultation Report ---
NEPHROLOGY CONSULTATION NOTE DATE OF SERVICE: 02/20/2021 REASON FOR CONSULTATION: Hyponatremia. HISTORY OF PRESENT ILLNESS: The patient is an 80-year-old male who was admitted 2 days ago when he p resented to the hospital complaining of cough as well as increasing weakness. He denied having any c hest pain, but was having some degree of orthopnea. He was attributing to the symptoms to the recent flu shot that he had about a week ago. The patient was noted to be in atrial fibrillation with rapi d ventricular response with a heart rate in the 120s and 130s. He was also felt to be in congestive heart failure and he is getting diuretics through cardiology. As per note, he has severe aortic sten osis as well as right heart failure secondary to pulmonary hypertension. He received oral Lasix yest erday and one dose of IV Lasix 40 mg just 2 hours ago. Urine output yesterday was about 1400 mL. He has slightly more urine today. Serum sodium has been low, on admission was 125 and since then has fl uctuated, but mostly has been in the 120 range. This morning was 123. Urine osmolality was inapprop riately high at 390. Urine sodium 11. The patient appears to be drinking a lot of liquids at home. He drinks about 5-6 beers every day as well as 3-4 cups of coffee and a lot of water. He claims he eats very good, 3 meals a day. The patient's heart rate is still quite high and he is on amiodarone drip as well as heparin drip. Also has intermittently very high glucose with reading as high as 507 earlier this morning. PAST MEDICAL AND SURGICAL HISTORY: Includes right-sided heart failure, cor pulmonale, normal ejectio n fraction, coronary artery disease, peripheral vascular disease, status post stent, severe aortic st enosis, atrial septal defect, status post closure, hypertension, hyperlipidemia, prostate cancer, sta tus post surgery/radiation, history of seizure disorder, chronic daily alcohol abuse, past tobacco ab use, hemilaminectomy, carotid endarterectomy, fem-pop bypass with stent, prostate surgery, appendicec kizzy, tonsillectomy. FAMILY HISTORY: Heart disease, prostate cancer, skin cancer, COPD. No renal disease or dialysis. PERSONAL AND SOCIAL HISTORY: Ongoing alcohol abuse and previous tobacco abuse. 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 Alcohol intake can be sometimes very extensive as per . ALLERGIES: List reviewed in detail. MEDICATIONS: Home medication list is reviewed in detail and is as per the reconciliation list. The p atient does take Lasix 40 mg twice daily. REVIEW OF SYSTEMS: Very hard to obtain as the patient is very somnolent and can barely keep his eyes open, but denies any overt pain, shortness of breath, nausea, or vomiting. PHYSICAL EXAMINATION: GENERAL: Elderly white male who is not in overt respiratory distress. He is awake, but very somnole nt and could barely keep his eyes open. VITAL SIGNS: Blood pressure is 113/68, pulse rate 119, temperature 37.2 degrees Celsius, 97% on 3 li ters nasal cannula. HEENT: Mucous membrane is moist. NECK: Supple. Jugular venous distention is present. CHEST: Bilateral decreased breath sounds, occasional crackles. CARDIOVASCULAR: S1 and S2, tachycardic. Systolic murmur heard. ABDOMEN: Soft, nontender. EXTREMITIES: Show no edema. LABORATORY TEST: Shows blood work with a serum sodium of 123 this morning, potassium was 4.1, chlori de 89, BUN 27, creatinine 1.41, calcium 8.5, ionized calcium low at 0.99. Hemoglobin 9.3, WBC count 13.5, platelet count 291. Urine osmolality 390. Urine sodium 11. Urine dipstick shows cloudy urine , specific gravity 1.015, 2+ protein, trace blood. Fairly active urine sediment with lots of epithel ial cells, hyaline cast, granular casts and bacteria. Chest x-ray earlier today shows cardiomegaly w ith evidence of congestive heart failure, bilateral airspace opacities representing pulmonary edema. ASSESSMENT AND PLAN: An 80-year-old male admitted with acute cardiac event. He had atrial fibrillat ion with rapid ventricular response as well as acute pulmonary edema with right heart failure. I hav e been consulted for hyponatremia. Hyponatremia: This is very multifactorial in etiology in the setting of congestive heart failure as well as very excessive fluid intake including chronic heavy alcohol use. Urine osmolality was inappr opriately high at 390. Urine sodium was low, but in the setting of acute decompensated congestive he art failure, it is hard to interpret. The patient is still having evidence of pulmonary congestion a nd needs to be diuresed. We will manage this as a case of hypervolemic hyponatremia to improve his s ymptoms as well as serum sodium. He received Lasix 40 mg IV just 2 hours ago. We will repeat BMP ag ain in a few hours and based on that, we will decide about the Lasix. My impression is he probably n eeds more IV Lasix to cause some diuresis and raise the serum sodium. His glucose has also been quit e high at times including a reading of 507 earlier this morning. Obviously that also contributes to pseudohyponatremia. Recommend fluid restriction of 1800 mL per day. At this point, we will do BMP e very 8 hours. Job ID: [id number]
[2021-02-21 06:00] LABS: Hematocrit (blood only) 27.7 % (42-52); Hemoglobin 9.5 g/dL (14.0-18.0); Immature Granulocytes # (auto) 0.03 K/uL (0.00-0.02); Immature Granulocytes % (auto) 0.2 %; Lymphocytes # (auto) 0.74 K/uL (1.2-3.4); Lymphocytes % (auto) 5.9 %; Mean Corpuscular Hemoglobin 28.6 pg (25-34); Mean Corpuscular Hgb Conc 34.3 g/dL (32-36); Mean Corpuscular Volume 83.4 fL (80-100); Mean Platelet Volume 8.8 fL (7.4-10.4); Monocytes % (auto) 11.9 %; Neutrophils # (auto) 10.32 K/uL (1.4-6.5); Platelet Count 346 K/uL (130-400); RDW Coefficient of Variation 14.5 % (11.5-14.5); RDW Standard Deviation 44.7 fL (36.4-46.3); Red Blood Count 3.32 M/uL (4.7-6.1); White Blood Count 12.59 K/uL (4.8-10.8)
[2021-02-21 06:18] LABS: BUN Creatinine Ratio 22.7 (10-20); Calcium 8.8 mg/dl (8.5-10.1); Creatinine Clr Calc Pharmacy 36.2 ml/min; Est GFR (Non-African American) 44.9 ml/min
[2021-02-21 06:22] LABS: Partial Thromboplastin Ratio 2.6
[2021-02-21] MEDS: INSULIN ASPART 100 UNITS/ML 3 ML PEN SC SCH ×4 (07:57→21:58)
[2021-02-21] MEDS: METOPROLOL TARTRATE 25 MG TAB PO SCH ×4 (07:58→20:54)
[2021-02-21] MEDS: GABAPENTIN 100 MG CAP PO SCH ×3 (07:59→20:47)
[2021-02-21] MEDS: levETIRAcetam 500 MG TAB PO SCH ×2 (07:59→20:54)
[2021-02-21] MEDS: ASPIRIN 81 MG ECTAB PO SCH (07:59)
[2021-02-21] MEDS: DOXYCYCLINE HYCLATE 100 MG CAP PO SCH ×2 (07:59→20:46)
[2021-02-21] MEDS: guaiFENesin 600 MG TABCR PO SCH ×2 (07:59→20:50)
[2021-02-21] MEDS: POTASSIUM CHLORIDE CRTAB 20 MEQ TABCR PO SCH ×2 (07:59→20:56)
[2021-02-21] MEDS: EZETIMIBE 10 MG TABLET PO SCH (08:00)
[2021-02-21] MEDS: MULTIVITAMIN TAB PO SCH (08:00)
[2021-02-21] MEDS: FOLIC ACID 1 MG TAB PO SCH (08:00)
[2021-02-21] MEDS: THIAMINE HCL 100 MG TAB PO SCH (08:00)
[2021-02-21] MEDS: CLOPIDOGREL BISULFATE 75 MG TAB PO SCH (08:00)
[2021-02-21] MEDS: AMIODARONE 200 MG TAB PO SCH ×3 (08:00→17:02)
[2021-02-21] MEDS: INSULIN GLARGINE SOLOSTAR 100 UNITS/ML 3 ML PEN SC SCH (08:01)
--- NOTE | 2021-02-21 10:01 | Cardiology Progress Note ---
Date of Service February 21, 2021 Assessment & Plan (1) Atrial fibrillation, new onset: (2) Severe calcific aortic stenosis: (3) Acute hyponatremia: (4) Right heart failure due to pulmonary hypertension: Plan: Complex and ill 80-year-old male with severe calcific aortic stenosis, chronic pulmonary hypertension presents with newly observed atrial fibrillation of possible several days in duration. Heart rates remain elevated but on initial treatment with IV fluids and beta and calcium channel blockers developed pulmonary edema. Presentation notable for hyponatremia and anemia as well. Plan: Continue IV heparin but follow hemoglobins closely given anemia on p resentation Heart rates remain elevated despite beta-javier and amiodarone therapy. Will increase metoprolol to 25 mg 4 times a day continue amiodarone orally having received IV load Continue cautious diuresis with furosemide 40 mg IV twice daily, now responding without further depression and sodium levels Resume sildenafil for chronic pulmonary hypertension Patient significant elevated risk to an underlying valvular disease and pulmonary hypertension. Presenting history per discussion with patient and was notable for syncope/near syncope after climbing basement stairs. Patient with severe aortic stenosis, heart failure possibly precipitated by atrial arrhythmias and syncope superimposed on chronic pulmonary hypertension Would recommend tertiary care evaluation question valvular intervention, IRENA guided cardioversion Admission and Anticipated Discharge Date Admission Date: February 18, 2021 Subjective Patient was seen and examined, chart, medications, telemetry reviewed. Denies any acute complaints. No chest pains. Still in A. fib flutter with tachycardic response. Did have brisk response to diuretics yesterday without compromise of sodium. Minimally productive cough. No bleeding difficulties. Review of Systems Review of Systems: All systems reviewed & are unremarkable except as noted in Subjective Physical Exam Constitutional: no acute distress Eyes: PERRL, conjunctivae normal, anicteric sclerae ENMT: external ear and nose normal, oropharynx normal Neck: trachea midline, no thyromegaly Respiratory: Auscultation: + rales (Bibasilar) Cardiovascular: Rate/Rhythm: + tachycardic and + irregularly irregular Hear t Sounds: normal S1 and + murmur (Harsh grade 3/6 systolic); + abnormal S2 (Diminished) and no gallop Palpation: normal PMI Vessels: radial pulses present; no JVD and no carotid bruit Extremities: + edema (Trace) Gastrointestinal (Abdomen): normal bowel sounds, soft, nontender, no hepatosplenomegaly Musculoskeletal: no cyanosis or clubbing, extremities motor strength 5/5 Skin: no rashes, warm and dry Neurologic: PERRL, EOMI, accommodation nl, no face palsy, no dysarthria Psychiatric: A+Ox3, euthymic affect Results & Data ([facility]) Vital Signs (Past 12 Hours) Vital Signs Temp Pulse Resp BP BP Pulse Ox 02/21/21 07:44 37.2 C 140 H 19 137/77 97 02/21/21 03:53 37 C 134 H 16 130/77 94 02/21/21 00:00 37.8 C H 126 H 22 125/74 97 Laboratory Results Laboratory Results - last 24 hr 02/20/21 02/20/21 02/20/21 10:05 10:05 11:44 WBC RBC Hgb Hct MCV MCH MCHC RDW Std Deviation RDW Coeff of Ruth Plt Count MPV Immature Gran % (Auto) Neut % (Auto) Lymph % (Auto) Freestone % (Auto) Eos % (Auto) Baso % (Auto) Neut # (Auto) Lymph # (Auto) Freestone # (Auto) Eos # (Auto) Baso # (Auto) Immature Gran # (Auto) APTT 62.1 H* PTT Ratio 2.4 Sodium 123 L Potassium 4.1 Chloride 89 L Carbon Dioxide 26 Anion Gap 8.0 BUN 27 H Creatinine 1.41 H Est Cr Clr Drug Dosing 37.2 Est GFR ( Amer) 53.4 Est GFR (Non-Af Amer) 46.1 BUN/Creatinine Ratio 19.3 Glucose 238 H POC Glucose 247 H Calcium 8.5 02/20/21 02/20/21 02/20/21 16:01 18:55 20:05 WBC RBC Hgb Hct MCV MCH MCHC RDW Std Deviation RDW Coeff of Ruth Plt Count MPV Immature Gran % (Auto) Neut % (Auto) Lymph % (Auto) Freestone % (Auto) Eos % (Auto) Baso % (Auto) Neut # (Auto) Lymph # (Auto) Freestone # (Auto) Eos # (Auto) Baso # (Auto) Immature Gran # (Auto) APTT PTT Ratio Sodium 126 L Potassium 4.4 Chloride 91 L Carbon Dioxide 28 Anion Gap 7.0 BUN 32 H Creatinine 1.53 H Est Cr Clr Drug Dosing 34.3 Est GFR ( Amer) 48.4 Est GFR (Non-Af Amer) 41.7 BUN/Creatinine Ratio 20.7 H Glucose 159 H POC Glucose 165 H 161 H Calcium 8.5 02/21/21 02/21/21 02/21/21 05:35 05:35 05:35 WBC 12.59 H RBC 3.32 L Hgb 9.5 L Hct 27.7 L MCV 83.4 MCH 28.6 MCHC 34.3 RDW Std Deviation 44.7 RDW Coeff of Ruth 14.5 Plt Count 346 MPV 8.8 Immature Gran % (Auto) 0.2 Neut % (Auto) 82.0 Lymph % (Auto) 5.9 Freestone % (Auto) 11.9 Eos % (Auto) 0.0 Baso % (Auto) 0.0 Neut # (Auto) 10.32 H Lymph # (Auto) 0.74 L Freestone # (Auto) 1.50 H Eos # (Auto) 0.00 Baso # (Auto) 0.00 Immature Gran # (Auto) 0.03 H APTT 69.0 H* PTT Ratio 2.6 Sodium 127 L Potassium 4.0 Chloride 89 L Carbon Dioxide 29 Anion Gap 9.0 BUN 33 H Creatinine 1.44 H Est Cr Clr Drug Dosing 36.2 Est GFR ( Amer) 52.0 Est GFR (Non-Af Amer) 44.9 BUN/Creatinine Ratio 22.7 H Glucose 128 H POC Glucose Calcium 8.8 02/21/21 07:15 WBC RBC Hgb Hct MCV MCH MCHC RDW Std Deviation RDW Coeff of Ruth Plt Count MPV Immature Gran % (Auto) Neut % (Auto) Lymph % (Auto) Freestone % (Auto) Eos % (Auto) Baso % (Auto) Neut # (Auto) Lymph # (Auto) Freestone # (Auto) Eos # (Auto) Baso # (Auto) Immature Gran # (Auto) APTT PTT Ratio Sodium Potassium Chloride Carbon Dioxide Anion Gap BUN Creatinine Est Cr Clr Drug Dosing Est GFR ( Amer) Est GFR (Non-Af Amer) BUN/Creatinine Ratio Glucose POC Glucose 134 H Calcium
[2021-02-21] MEDS ORDERED: FUROSEMIDE 40 MG in SYRINGE 0 ML IV SCH (10:15)
[2021-02-21] MEDS: METOPROLOL TARTRATE 1 MG/ML VIAL IV PRN ×2 (10:39→15:06)
--- NOTE | 2021-02-21 12:16 | Nephrology Progress Note ---
Date of Service February 21, 2021 Assessment & Plan (1) Hyponatremia: Plan: sodium levels uptrending at appropriate rate. Max sNa for tomorrow is 133. Baseline creatinine 1.4 since spring 2020 >continue lasix 40 mg IV bid, more prn but with care given valvular dz, R HF >monitor BMP twice daily -continue FR 1.5L -maintain eukalemia Admission and Anticipated Discharge Date Admission Date: February 18, 2021 Subjective on only heparin gtt now and w/ HR 130s this AM. cardiology titrating BB and amio and recommending tertiary care re possible valvular intervention or/and IRENA cardioversion. only c/o is of fatigue Review of Systems Review of Systems: All systems reviewed & are unremarkable except as noted in Subjective Physical Exam Constitutional: well developed and well nourished on 4L NC 02; diaphoretic Eyes: EOM intact bilaterally ENMT: Ears: no external ear abnormality Nose: no external nose abnormality Mouth: + dry oral mucous membranes Neck: no nuchal rigidity Respiratory: normal respiratory effort Auscultation: + diminished lung sounds and + rhonchi prolonged exp phase Cardiovascular: Rate/Rhythm: + tachycardic Extremities: no edema Gastrointestinal (Abdomen): Inspection/Auscultation: normal bowel sounds Percussion/Palpation: abdomen soft and + fluid wave; abdomen nontender Musculoskeletal: Extremities: strength 5/5 throughout Skin: no rashes, warm and dry Neurologic: hagan, fluent speech, no tremor Genitourinary: rand w/ ample light urine yellow Results & Data ([facility]) Vital Signs (Past 12 Hours) Vital Signs Temp Pulse Pulse Resp BP Pulse Ox 02/21/21 11:09 37.1 C 133 H 18 138/72 95 02/21/21 10:39 141 H 02/21/21 07:44 37.2 C 140 H 19 137/77 97 02/21/21 03:53 37 C 134 H 16 130/77 94 Laboratory Results 02/21/21 05:35 02/21/21 05:35
[2021-02-21 13:22] LABS: Partial Thromboplastin Ratio 2.7
[2021-02-21 13:24] LABS: Partial Thromboplastin Time 69.8 Seconds (21.0-31.0)
--- NOTE | 2021-02-21 14:06 | Electrocardiogram Report ---
Test Reason : Blood Pressure : / mmHG Vent. Rate : 121 BPM Atrial Rate : 127 BPM P-R Int : 192 ms QRS Dur : 090 ms QT Int : 326 ms P-R-T Axes : 000 -17 036 degrees QTc Int : 462 ms Sinus tachycardia Nonspecific ST abnormality Abnormal ECG When compared with ECG of 18-FEB-2021 16:29, Sinus rhythm has replaced Atrial fibrillation ST now depressed in Inferior leads Confirmed by Jose Ramon Granger ([id number]) on 02/21/2021 2:05:48 PM Referred By: REFERRED SELF Confirmed By:Jose Ramon Granger
--- NOTE | 2021-02-21 14:28 | Electrocardiogram Report ---
Test Reason : Blood Pressure : / mmHG Vent. Rate : 137 BPM Atrial Rate : 274 BPM P-R Int : 000 ms QRS Dur : 086 ms QT Int : 310 ms P-R-T Axes : 263 -40 000 degrees QTc Int : 468 ms Atrial flutter with 2:1 A-V conduction Left axis deviation Nonspecific ST abnormality Abnormal ECG When compared with ECG of 20-FEB-2021 13:36, (unconfirmed) Atrial flutter has replaced Sinus rhythm Confirmed by Jose Ramon Granger ([id number]) on 02/21/2021 2:28:28 PM Referred By: REFERRED SELF Confirmed By:Jose Ramon Granger
[2021-02-21 16:46] LABS: BUN Creatinine Ratio 23.5 (10-20); Creatinine Clr Calc Pharmacy 34.3 ml/min; Est GFR (African American) 48.8 ml/min; Est GFR (Non-African American) 42.1 ml/min; Potassium 4.2 mmol/L (3.5-5.1)
[2021-02-21] MEDS: HEPARIN SODIUM/DEXTROSE 25,000 UNITS/500 ML BAG IV SCH (18:43)
--- NOTE | 2021-02-21 19:45 | Discharge Summary ---
Date of Service February 21, 2021 Admission HPI Per Admitting Provider History obtained from patient, family, and records. Medical history significant for right-sided heart failure/cor pulmonale (EF 50 to 54%, TTE 2020), CAD, PVD status post stent, severe aortic stenosis, ASD status post closure, hypertension, hyperlipidemia, prostate cancer status post surgery/radiation, seizure disorder, chronic anemia (baseline hemoglobin of 11 as of 2018 ), daily alcohol intake, past tobacco abuse. Last confinement November 2015 for syncope associated with confusion. Neurology started Keppra for possible seizures. Patient noted generalized weakness after getting a flu shot about 5 days ago. Dry cough without chest pain or shortness of breath. Transient diarrhea. No headache symptoms. No abdominal pain, fair appetite. Patient brought by to the ER. Noted to be in rapid atrial fibrillation, cardiac rate 120s. Medical History as above 2003 colonoscopy was normal as per records. 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 Admission Exam Per Admitting Provider GENERAL: Slightly anxious, slightly uncomfortable, mild hearing impairment, no respiratory distress SKIN: Pallor, warm HEENT: Pale palpebral conjunctivae, no ptosis, dry buccal mucosa NECK : Supple, no tenderness CHEST : Decreased breath sounds, no tenderness HEART : Irregular, tachycardic, systolic murmur best heard on second right intercostal space ABDOMEN: Some distention, nontender RECTAL : Intact sphincter, brown stool (FOBT negative) EXTREMITIES : Minimal LE swelling, no LE tenderness, no other conspicuous deformities noted NEUROLOGIC : Coherent, no facial asymmetry, mild hearing impairment, no other gross focality Principal Diagnosis Atrial fibrillation, new onset: Right heart failure due to pulmonary hypertension Severe calcific aortic stenosis: Hyponatremia Seizure dx CAD s/p stent Alcohol abuse Weakness Discharge Exam General- No acute distress Head- atraumatic Eyes- PERRL, EOMI, ENT- oropharynx clear Neck- supple, no JVD Lungs- +coarse BS Heart- irregular rhythm; +murmur Abdomen- normal bowel sounds, soft, nontender Extremities- no calf tenderness Neuro- alert, oriented x 3; PERRL, EOMI; no facial palsy; no dysarthria Skin- warm & dry Discharge Data Allergies Allergy/AdvReac Type Severity Reaction Status Date / Time bee venom protein (honey bee) Allergy Severe ANAPHYLAXIS-YELLOW Verified 02/26/21 19:22 JACKETS lorazepam AdvReac Mild oversedation Verified 02/26/21 19:22 from AWSS protocol Uncoded Nonscreenable Allergy Severe All Uncoded 02/26/21 19:22 Allergen IV's must be administered thru 0.2mic in-line filter Consultations 02/18/21 19:21 ED Decision to Admit Stat 02/18/21 23:07 Consult Cardiology Routine 02/20/21 04:03 Consult Nephrology Routine 02/20/21 08:54 Consult Nephrology Routine Ordered Studies 02/18/21 20:09 CT head/brain wo con Urgent 02/19/21 22:11 CT head/brain wo con Urgent SINGLE VIEW CHEST CLINICAL HISTORY: Acute renal insufficiency. FINDINGS: An AP, portable, upright chest radiograph is compared to study dated 02/19/2021 and correlated with chest CT dated 11/16/2015. The heart is enlarged noting atherosclerotic calcification of the thoracic aorta. There is pulmonary vascular congestion. Bilateral airspace opacities are noted. No large pleural effusion or pneumothorax is seen. The skeletal structures are osteopenic. The bony thorax is grossly intact. Fusion hardware is seen in the lower cervical spine. IMPRESSION: 1. Cardiomegaly with evidence of congestive failure. 2. Bilateral airspace opacities likely represent mild pulmonary edema. Correlate clinically for evidence of a superimposed infectious/inflammatory pneumonitis. ACT 112: Negative or not required by law. Electronically signed by: Ceasar Higgins M.D. 02/20/2021 8:19 AM Dictated: 02/20/21817Transcribed: 02/20/21817 CT head/brain wo con CLINICAL HISTORY: 80 years-old Male with ams. Acutely altered mental status TECHNIQUE: Multiple axial CT images of the head were obtained without contrast. A dose lowering technique was utilized adhering to the principles of ALARA. CT DOSE: 614.27 mGy.cm COMPARISON: Head CT 02/18/2021 FINDINGS: No acute intracranial hemorrhage, midline shift, intracranial mass, hydrocephalus, territorial ischemia or abnormal extra-axial collection. 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 Age-related involutional changes. White matter hypodensities suggestive of chronic microvascular ischemic disease. The calvarium is intact. The paranasal sinuses, mastoid air cells, and middle ear cavities are clear. IMPRESSION: No acute intracranial abnormality. ACT 112: Negative or not required by law. The above report was generated using voice recognition software. It may contain grammatical, syntax or spelling errors. Electronically signed by: Vikas Mcdonald M.D. 02/20/2021 7:40 AM Dictated: 02/20/21737Transcribed: 02/20/21737 XR chest 1V portable HISTORY: 80 years-old Male sob acute shortness of breath COMPARISON: Chest radiograph 02/18/2021 TECHNIQUE: Portable AP view of the chest FINDINGS: Cardiac silhouette is enlarged. Calcified plaque of the thoracic aorta. Bilateral hilar prominence. Reticular interstitial opacities have progressively worsened. No pneumothorax or large pleural effusion. Progressive left midlung and right lung base ill-defined airspace opacities. Degenerative changes of the shoulders and spine. Cervical spinal fusion hardware. IMPRESSION: 1. Cardiomegaly with interval development of pulmonary edema. 2. Progressively worsened right lung base and left midlung ill-defined opacities may represent a superimposed pneumonitis. ACT 112: Negative or not required by law. The above report was generated using voice recognition software. It may contain grammatical, syntax or spelling errors. Electronically signed by: Vikas Mcdonald M.D. 02/19/2021 7:31 AM Dictated: 02/19/21729Transcribed: 02/19/21729 CT SCAN OF THE BRAIN WITHOUT IV CONTRAST CLINICAL HISTORY: Generalized weakness. COMPARISON STUDY: CT of the brain dated 11/15/2015. TECHNIQUE: Unenhanced axial CT scan of the brain is performed from the vertex to the skull base. A dose lowering technique was utilized adhering to the principles of ALARA. CT DOSE: 537.48 mGy.cm FINDINGS: Brain parenchyma: There are age-related involutional changes noting moderate to advanced subcortical and periventricular microangiopathic change. 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 There is no hemorrhage, mass effect, or evidence of acute territorial ischemia by CT criteria. Hubbard-white matter differentiation is preserved. No extra-axial fluid collection is seen. Ventricles, sulci, cisterns: Prominent secondary to involutional change. Intracranial vasculature: There is atherosclerotic calcification of the cavernous carotid arteries. Calvarium: Unremarkable. Sinuses and mastoids: The visualized paranasal sinuses are clear. There is a small right mastoid effusion. The left mastoid air cells are well pneumatized. Orbits: The bony orbits are grossly intact. There are bilateral ocular lens implants. IMPRESSION: There is no hemorrhage, mass effect, or evidence of acute territorial ischemia by CT criteria. ACT 112: Negative or not required by law. Electronically signed by: Ceasar Higgins M.D. 02/18/2021 10:57 PM Dictated: 02/18/212251Transcribed: 02/18/212251 XR chest 1V portable CLINICAL HISTORY: weakness COMPARISON STUDY: Chest radiograph November 15, 2015. Chest CT November 16, 2015. FINDINGS: Incidental note is made of postoperative findings within the cervical spine. There is no pneumothorax or pleural effusion. Cardiomegaly is unchanged. Interstitial thickening and mild bilateral opacities are similar to prior exam no lobar consolidation is present left hilar prominence is unchanged. This is likely due to to an enlarged left pulmonary artery, as shown on prior CT. IMPRESSION: Interstitial thickening and mild left lung opacities, similar to prior exam. The findings are likely chronic. A mild superimposed infectious process would be difficult to exclude. ACT 112: Negative or not required by law. Electronically signed by: Rubén Sterling M.D. 02/18/2021 5:20 PM Dictated: 02/18/211716Transcribed: 02/18/211717 Hospital Course (1) Atrial fibrillation, new onset: Present on admission weakness s/p influenza vaccination few days ago EKG on admission showed Afib Continue iv Heparin drip cardiology on board Amiodarone drip changed to PO amiodarone Continue metoprolol Monitor hgb while on IV heparin drip Right heart failure due to pulmonary hypertension CXR showed cardiomegaly with interval development of pulmonary edema. Cardiology on board Continue lasix IV Will monitor electrolytes while on on IV Lasix Severe calcific aortic stenosis: Echo showed severe calcific aortic stenosis with peak aortic velocitiy 4.5 m/s Case discussed with Dr. Martín hairston recommended pt to transfer to a tertiary care since pt present with complaint of syncope, acute heart failure and atrial fibrillation with rapid response in the setting of severe aortic stenosis and severe pulmonary hypertension extremely high risk for further deterioration Case discussed with Cardiology Dr. Angeles in [facility] to transfer. Dr. Angeles accepted the patient for transfer but there was no bed now (waiting list for possible 24 to 48hrs) Will continue monitor closely Hyponatremia Possible related to fluid overload Na 125 on admission, then improved to 132 Na 123 today Continue IVF Lasix Nephrology on board recommended to continue Lasix and fluid restriction at 1.8L Monitor BMP Seizure dx Continue outpatient med Stable CAD s/p stent Continue aspirin, statin, palvix and beta javier Continue Monitor Alcohol abuse Drink about 4 to 5 beers daily No history of alcohol withdrawn Will monitor closely for sign of DT or alcohol withdrawal Counseling on alcohol cessation Weakness Mosly due to acute illness Continue PT/OT Fall precaution DVT prophylaxis with IV Heparin Full code Disposition Plan to transfer to [place] Accepting physician Dr. Angeles Patient's requesting update providers. Ms. Nina Dunham, contact #[phone]. Total Time Total Time Spent Total Time Spent (In Minutes): 35 minutes Discharge Plan Discharge Items Patient Disposition: Transfer Acute Care Hospital Reason For Visit: AF Discharge Diagnosis: Atrial fibrillation, new onset: Right heart failure due to pulmonary hypertension Severe calcific aortic stenosis: Hyponatremia Seizure dx CAD s/p stent Alcohol abuse Weakness Activity: Resume your previous activity Non-emergency contact: Primary Care Provider Call non-emergency contact if: you have any medication questions Follow-up/Referrals: Henry Campbell MD [Primary Care Provider] - Diet: Carb Consistent or DM2 Addtl Attending Provider Instructions: Will transfer to [facility] Accepting physician cardiology Dr. Angeles Continue IV heparin drip Continue monitor CBC while on IV heparin drip BMP to continue monitor electrolytes and renal function Continue oxygen supplement Pending Studies at Discharge: No Stand-Alone Forms: My New [facility] Skilled Items Patient informed of condition?: Yes DNR: No Discharge Level of Care: Other Communicable Disease: No Discharge Prognosis: Deteriorating Lines: Peripheral IV Urinary Catheter: Yes Medications and DC Order Prescriptions: Continued multivitamin Tablet 1 tab PO DAILY RF: 0 amoxicillin 500 mg capsule 2,000 mg PO DIRECTED PRN (Reason: PRIOR TO DENTAL APPT.) RF: 0 furosemide 40 mg tablet 40 mg PO BID RF: 0 atorvastatin 20 mg tablet 20 mg PO HS RF: 0 levetiracetam 500 mg tablet 500 mg PO BID RF: 0 gabapentin 400 mg capsule 400 mg PO TID RF: 0 clopidogrel 75 mg tablet 75 mg PO DAILY RF: 0 ascorbic acid (vitamin C) [Vitamin C] 500 mg Tablet 500 mg PO DAILY RF: 0 epinephrine [EpiPen] 0.3 mg/0.3 mL Auto-Injector 0.3 mg IM DIRECTED PRN (Reason: Allergic Reaction) RF: 0 terazosin 10 mg capsule 10 mg PO HS RF: 0 ezetimibe 10 mg tablet 10 mg PO DAILY RF: 0 Metamucil (sugar) Powder 1 tbsp PO DAILY PRN (Reason: Constipation) RF: 0 Calcium 600 + D(3) 600 mg calcium- 200 unit Capsule 1 cap PO DAILY RF: 0 sildenafil (pulm.hypertension) 20 mg tablet 20 mg PO BID RF: 0 cholecalciferol (vitamin D3) [Vitamin D3] 50 mcg (2,000 unit) Capsule 50 mcg PO DAILY RF: 0 coQ10 (ubiquinol) 200 mg Capsule 200 mg PO DAILY RF: 0 No Action amiodarone 200 mg tablet 200 mg PO TID RF: 0 thiamine HCl (vitamin B1) [Vitamin B-1] 100 mg Tablet 100 mg PO DAILY RF: 0 metoprolol tartrate 50 mg tablet 50 mg PO TID RF: 0 Eliquis 5 mg tablet 5 mg PO BID RF: 0 Discharge Orders: Discharge Order (Routine); Ordered 02/21/21 Ordered By: Fabian Yoon/Other Patient Handouts: A1C, 5 Steps for Eating Healthier Admission Data Admit Date/Time: 02/18/21 20:15 Attending Provider: Fabian Lynn Admit Provider: Manjeet Maurer Primary Care Provider: Henry Campbell Other Providers: Manjeet Maurer ; Anil Powell ; Dylan Prado ; Gautam Resendiz ; Ole Quintero ; Durga Fields ; Vasyl Rodriguez ; Key Jesus ; Jaimie Patel ; Jacy Yuen ; Freddy Mcneill ; Brittany Elias ; Nate Vargas ; Maria Alejandra Jorgensen ; Valerie Mari ; Enid Ibarra ; Angle Don Other Interventions: Discharge Summary Assessment (RN) Last Done: 02/21/21 20:28
[2021-02-21] MEDS: ATORVASTATIN 20 MG TAB PO SCH (20:48)
[2021-02-21] MEDS: FUROSEMIDE 20 MG in SYRINGE 0 ML IV SCH (20:49)
[2021-02-21] MEDS: SILDENAFIL CITRATE 20 MG TABLET PO SCH (20:56)
[2021-02-21 22:57] LABS: Partial Thromboplastin Ratio 3.1
[2021-02-21 23:11] LABS: Partial Thromboplastin Time 80.9 Seconds (21.0-31.0)
[2021-02-22 06:58] LABS: Partial Thromboplastin Ratio 2.6
[2021-02-22] MEDS: HEPARIN SODIUM/DEXTROSE 25,000 UNITS/500 ML BAG IV SCH (07:27)
[2021-02-22] MEDS: POTASSIUM CHLORIDE CRTAB 20 MEQ TABCR PO SCH (08:00)
[2021-02-22] MEDS: SILDENAFIL CITRATE 20 MG TABLET PO SCH (08:00)
[2021-02-22] MEDS: FOLIC ACID 1 MG TAB PO SCH (08:00)
[2021-02-22] MEDS: ASPIRIN 81 MG ECTAB PO SCH (08:01)
[2021-02-22] MEDS: MULTIVITAMIN TAB PO SCH (08:01)
[2021-02-22] MEDS: CLOPIDOGREL BISULFATE 75 MG TAB PO SCH (08:01)
[2021-02-22] MEDS: THIAMINE HCL 100 MG TAB PO SCH (08:01)
[2021-02-22] MEDS: EZETIMIBE 10 MG TABLET PO SCH (08:01)
[2021-02-22] MEDS: levETIRAcetam 500 MG TAB PO SCH (08:01)
[2021-02-22] MEDS: METOPROLOL TARTRATE 25 MG TAB PO SCH (08:01)
[2021-02-22] MEDS: guaiFENesin 600 MG TABCR PO SCH (08:01)
[2021-02-22] MEDS: AMIODARONE 200 MG TAB PO SCH (08:01)
[2021-02-22] MEDS: GABAPENTIN 100 MG CAP PO SCH (08:02)
[2021-02-22] MEDS: INSULIN GLARGINE SOLOSTAR 100 UNITS/ML 3 ML PEN SC SCH (08:02)
[2021-02-22] MEDS: DOXYCYCLINE HYCLATE 100 MG CAP PO SCH (08:02)
[2021-02-22] MEDS: FUROSEMIDE 20 MG in SYRINGE 0 ML IV SCH (08:02)
[2021-02-22] MEDS: INSULIN ASPART 100 UNITS/ML 3 ML PEN SC SCH (08:05)
== END 2021-02-22 08:30 | disposition short-term general hospital (02) | DRG 308 ==
LOC: ED 15:41 → 2S 20:15

== ENCOUNTER 2021-02-26 18:46 | Inpatient (IN) ==
[2021-02-26] MEDS ORDERED: SODIUM CHLORIDE 0.9% 1000ML 1,000 ML IV STA (19:14)
[2021-02-26] MEDS ORDERED: SODIUM CHLORIDE 0.9% 500 ML IV SCH (19:15)
[2021-02-26 19:49] LABS: Hemoglobin 7.9 g/dL (14.0-18.0); Mean Corpuscular Hgb Conc 32.9 g/dL (32-36); Mean Corpuscular Volume 85.1 fL (80-100); Mean Platelet Volume 8.5 fL (7.4-10.4); Platelet Count 553 K/uL (130-400); RDW Standard Deviation 47.1 fL (36.4-46.3); Red Blood Count 2.82 M/uL (4.7-6.1); White Blood Count 14.14 K/uL (4.8-10.8)
[2021-02-26 20:03] LABS: INR 1.1 (0.9-1.1); Partial Thromboplastin Ratio 1.1; Partial Thromboplastin Time 29.9 Seconds (21.0-31.0); Prothrombin Time 11.5 Seconds (9.0-12.0)
[2021-02-26 20:06] LABS: Alanine Aminotransferase 63 U/L (12-78); Albumin Level 2.6 gm/dl (3.4-5.0); Aspartate Aminotransferase 60 U/L (15-37); BUN Creatinine Ratio 29.9 (10-20); Blood Urea Nitrogen 49 mg/dl (7-18); Calcium 8.8 mg/dl (8.5-10.1); Carbon Dioxide 32 mmol/L (21-32); Chloride 97 mmol/L (98-107); Est GFR (African American) 44.1 ml/min; Est GFR (Non-African American) 38.1 ml/min; Glucose 137 mg/dl (70-99); Magnesium 2.2 mg/dl (1.8-2.4); Potassium 3.8 mmol/L (3.5-5.1); Sodium 134 mmol/L (136-145)
[2021-02-26 20:17] LABS: Albumin Globulin Ratio 0.7 (0.9-2); Alkaline Phosphatase 72 U/L (45-117); Bilirubin,Total 0.6 mg/dl (0.2-1); Globulin 3.7 gm/dl (2.5-4.0); Total Protein 6.3 gm/dl (6.4-8.2); Troponin I 0.029 ng/ml (0-0.045)
--- NOTE | 2021-02-26 20:17 | Emergency Department Note ---
Impression & Plan Near syncope, Orthostasis, Hematuria, Anemia ED Provider Note INFORMANT: Patient ED PROVIDER(S): Good Warren MD CHIEF COMPLAINT: Near syncope PLAN: Disposition: Admitted Condition: Good Outpatient prescription management: none Referral: None MEDICAL DECISION MAKING: Patient presented after near syncopal episode. He is orthostatic. He notes many many weeks of occasional blood in his stool but since having a catheter removed has had recent problems with hematuria. He was orthostatic. He was hydrated. His CBC showed a leukocytosis and moderate anemia which has worsened slightly since prior. The patient was given a dose of IV Rocephin. Urinalysis is concerning for infection. The patient will need further management in the hospital. Consultation was made with the [facility] hospitalist service, Dr. Ybarra. Patient was evaluated in the ER and admitted for further management. Triage Nursing notes reviewed and agree them. Vital Signs: reviewed and remarkable for no significant abnormalities Differential diagnosis: Infection, anemia, dehydration, metabolic abnormality, hypo/hyperglycemia, electrolyte disturbance, anemia, hypoxia, cardiac sources, intracerebral event, toxicologic, neurologic, diverticulosis, AVM, colitis, as well as other pathologies. Diagnostics interpreted by me: ECG: Twelve-lead ECG revealed normal sinus rhythm at 71 bpm. With bundle-branch block present. Nonspecific ST. Prolonged QT. Cardiac Monitoring: Cardiac monitoring ordered by me: The patient was placed on continuous cardiac monitoring and observed. It revealed a normal sinus rhythm at 77 beats per minute without ectopy or evidence of dysrhythmia. Imaging studies: Deferred HPI: The patient is a 80 year old male who presents to the Emergency Room with complaints of near syncope. This started this afternoon and is currently resolved. The patient also notes the following associated symptoms, generalized weakness, fatigue, occasional cough, recent issues with hematuria since having a Grande catheter removed at [facility] yesterday and recent problems with A. fib. Patient notes he is been dealing with blood in his stool for many months. The patient has found no relieving factors. Current pain is rated as zero/10. Pt denies complaints LOC, headache, fevers, chills, diaphoresis, visual changes, neck pain, chest pain, breathing difficulties, nausea, vomiting, abdominal pain, back pain, melena, numbness, lymphadenopathy, rash, or other complaints. ROS: See above HPI for pertinent positives & negatives. A total of 10 systems reviewed and were otherwise negative. PAST MEDICAL HISTORY:See Below , atrial fibrillation, hypertension PAST SURGICAL HISTORY:See Below, FAMILY HISTORY:See Below SOCIAL HISTORY:Retired, see below HOME MEDICATIONS:See Below ALLERGIES:See Below VITALS:See Below PHYSICAL EXAMINATION: GENERAL: Awake, tired-appearing, in no distress HENT: Normocephalic, atraumatic. Oropharynx unremarkable. EYES: Pale conjunctiva. Sclera non-icteric. NECK: Inspection normal. Non-tender. Supple. No nuchal rigidity. FROM. No masses. RESPIRATORY: Clear to auscultation. No wheezes. No rales. Normal respiratory effort. CARDIAC: Normal rate. Normal rhythm. No murmurs. No rubs. Extremities warm and well perfused. Pulses equal. No JVD. GI: Soft, non-distended. No tenderness to palpation. No rebound or guarding. No masses. RECTAL: Deferred. MUSCULOSKELETAL: Atraumatic. Chest examination reveals no tenderness. The back is symmetrical on inspection without obvious abnormality. There is no CVA te nderness to palpation. No joint edema. LOWER EXTREMITIES: Calves are equal size bilaterally and non-tender. Trace edema. No discoloration. NEURO: Normal sensorium. No sensory or motor deficits noted. SKIN: No rash or jaundice noted. 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 Beliefs That Will Affect Care: None marital status: Current Living Situation: Spouse Other Information That Helps Us Care for You: No Feels Safe at Home: Yes Safety Concerns: Feels Safe At This Time Assistive Devices: Walker Allergies Allergies Allergy/AdvReac Type Severity Reaction Status Date / Time bee venom protein (honey bee) Allergy Severe ANAPHYLAXIS-YELLOW Verified 02/26/21 19:22 JACKETS lorazepam AdvReac Mild oversedation Verified 02/26/21 19:22 from AWSS protocol Uncoded Nonscreenable Allergy Severe All Uncoded 02/26/21 19:22 Allergen IV's must be administered thru 0.2mic in-line filter Home Meds Home Medications Medication Instructions Recorded Confirmed amoxicillin 500 mg capsule 2,000 mg PO DIRECTED PRN 02/18/21 02/26/21 ascorbic acid (vitamin C) 500 mg 500 mg PO DAILY 02/18/21 02/26/21 tablet (Vitamin C) atorvastatin 20 mg tablet 20 mg PO HS 02/18/21 02/26/21 calcium carbonate-vitamin D3 600 1 cap PO DAILY 02/18/21 02/26/21 mg calcium-200 unit capsule (Calcium 600 + D(3)) cholecalciferol (vitamin D3) 50 50 mcg PO DAILY 02/18/21 02/26/21 mcg (2,000 unit) capsule (Vitamin D3) clopidogrel 75 mg tablet 75 mg PO DAILY 02/18/21 02/26/21 coQ10 (ubiquinol) 200 mg capsule 200 mg PO DAILY 02/18/21 02/26/21 epinephrine 0.3 mg/0.3 mL 0.3 mg IM DIRECTED PRN 02/18/21 02/26/21 injection, auto-injector (EpiPen) ezetimibe 10 mg tablet 10 mg PO DAILY 02/18/21 02/26/21 furosemide 40 mg tablet 40 mg PO BID 02/18/21 02/26/21 gabapentin 400 mg capsule 400 mg PO TID 02/18/21 02/26/21 levetiracetam 500 mg tablet 500 mg PO BID 02/18/21 02/26/21 multivitamin 1 tab PO DAILY 02/18/21 02/26/21 psyllium seed (sugar) oral powder 1 tbsp PO DAILY PRN 02/18/21 02/26/21 (Metamucil (sugar)) sildenafil (pulm.hypertension) 20 20 mg PO BID 02/18/21 02/26/21 mg tablet terazosin 10 mg capsule 10 mg PO HS 02/18/21 02/26/21 amiodarone 200 mg tablet 200 mg PO TID 02/26/21 02/26/21 apixaban 5 mg tablet (Eliquis) 5 mg PO BID 02/26/21 02/26/21 metoprolol tartrate 50 mg tablet 50 mg PO TID 02/26/21 02/26/21 thiamine HCl (vitamin B1) 100 mg 100 mg PO DAILY 02/26/21 02/26/21 tablet (Vitamin B-1) Results & Data (ED) Vital Signs Vital Signs - 24 hr 02/26/21 18:57 02/26/21 19:32 02/26/21 20:00 Temperature 36.7 C Temperature Source Oral Pulse Rate - Lying 69 Pulse Rate - Sitting 69 Pulse Rate - Standing 75 Pulse Rate 73 72 Pulse Rate from SpO2 Sensor 72 Respiratory Rate 21 21 Blood Pressure - Lying 112/52 L Blood Pressure - Sitting 118/61 Blood Pressure- Standing 141/54 H Blood Pressure 114/58 L 111/52 L Blood Pressure Mean 76 71 Pulse Oximetry 94 98 Oxygen Delivery Method Room Air Sepsis Recent Fever Within 48 Hours No Sepsis New/Unexplained Change in Mental Status No Sepsis Action Taken by Nursing No Action Required 02/26/21 20:30 02/26/21 21:00 02/26/21 21:30 Temperature Temperature Source Pulse Rate - Lying Pulse Rate - Sitting Pulse Rate - Standing Pulse Rate 67 67 66 Pulse Rate from SpO2 Sensor 66 67 66 Respiratory Rate 19 19 19 Blood Pressure - Lying Blood Pressure - Sitting Blood Pressure- Standing Blood Pressure 126/50 L 125/56 L 127/57 L Blood Pressure Mean 75 79 80 Pulse Oximetry 94 93 93 Oxygen Delivery Method Room Air Room Air Room Air Sepsis Recent Fever Within 48 Hours Sepsis New/Unexplained Change in Mental Status Sepsis Action Taken by Nursing 02/26/21 22:00 02/26/21 22:30 Temperature Temperature Source Pulse Rate - Lying Pulse Rate - Sitting Pulse Rate - Standing Pulse Rate 69 66 Pulse Rate from SpO2 Sensor 69 67 Respiratory Rate 18 18 Blood Pressure - Lying Blood Pressure - Sitting Blood Pressure- Standing Blood Pressure 120/61 127/71 Blood Pressure Mean 80 89 Pulse Oximetry 95 94 Oxygen Delivery Method Room Air Room Air Sepsis Recent Fever Within 48 Hours Sepsis New/Unexplained Change in Mental Status Sepsis Action Taken by Nursing Laboratory Data Result diagrams: 02/26/21 19:30 02/26/21 19:30 Lab Results 02/26/21 02/26/21 02/26/21 Range/Units 19:30 19:30 19:30 WBC 14.14 H (4.8-10.8) K/uL RBC 2.82 L (4.7-6.1) M/uL Hgb 7.9 L (14.0-18.0) g/dL Hct 24.0 L (42-52) % MCV 85.1 (80-100) fL MCH 28.0 (25-34) pg MCHC 32.9 (32-36) g/dL RDW Std Deviation 47.1 H (36.4-46.3) fL RDW Coeff of Ruth 15.0 H (11.5-14.5) % Plt Count 553 H (130-400) K/uL MPV 8.5 (7.4-10.4) fL Neutrophils % (Manual) 84.0 % Lymphocytes % (Manual) 6.0 % Monocytes % (Manual) 2.0 % Eosinophils % (Manual) 1.0 % Metamyelocytes % (Man) 1.0 % Myelocytes % (Man) 6.0 % Neutrophils # (Manual) 11.88 H (1.4-6.5) K/uL Total Absolute Neuts 11.88 H (1.4-6.5) K/uL Lymphocytes # (Manual) 0.85 L (1.2-3.4) K/uL Total Abs Lymphocytes 0.85 L (1.2-3.4) K/uL Monocytes # (Manual) 0.28 (0.11-0.59) K/uL Eosinophils # (Manual) 0.14 (0-0.5) K/uL Metamyelocytes # (Man) 0.14 H (0-0) K/uL Myelocytes # (Manual) 0.85 H (0-0) K/uL Hypersegmented Neuts Occasional Toxic Granulation 2+ Polychromasia 1+ PT 11.5 (9.0-12.0) Seconds INR 1.1 (0.9-1.1) APTT 29.9 (21.0-31.0) Seconds PTT Ratio 1.1 Sodium (136-145) mmol/L Potassium (3.5-5.1) mmol/L Chloride (98-107) mmol/L Carbon Dioxide (21-32) mmol/L Anion Gap (3-11) BUN (7-18) mg/dl Creatinine (0.6-1.4) mg/dl Est Cr Clr Drug Dosing Est GFR ( Amer) ml/min Est GFR (Non-Af Amer) ml/min BUN/Creatinine Ratio (10-20) Glucose (70-99) mg/dl Calcium (8.5-10.1) mg/dl Magnesium (1.8-2.4) mg/dl Total Bilirubin (0.2-1) mg/dl AST (15-37) U/L ALT (12-78) U/L Alkaline Phosphatase (45-117) U/L Troponin I (0-0.045) ng/ml Total Protein (6.4-8.2) gm/dl Albumin (3.4-5.0) gm/dl Globulin (2.5-4.0) gm/dl Albumin/Globulin Ratio (0.9-2) TSH (0.300-4.500) uIu/ml Urine Color Urine Appearance (Clear) Urine pH (4.5-7.5) Ur Specific Weston (1.000-1.030) Urine Protein (Negative) Urine Glucose (UA) (Negative) Urine Ketones (Negative) Urine Blood (Negative) Urine Nitrite (Negative) Urine Bilirubin (Negative) Urine Urobilinogen (Negative) Ur Leukocyte Esterase (Negative) Urine RBC (0-4) /hpf Urine WBC (0-5) /hpf Ur Epithelial Cells (0-5) /lpf Urine Bacteria (Negative) COVID-19 Eval Order SARS-CoV-2 (PCR) (Negative) Blood Type A Negative Antibody Screen NEGATIVE Crossmatch See Detail 02/26/21 02/26/21 02/26/21 Range/Units 19:30 20:12 20:12 WBC (4.8-10.8) K/uL RBC (4.7-6.1) M/uL Hgb (14.0-18.0) g/dL Hct (42-52) % MCV (80-100) fL MCH (25-34) pg MCHC (32-36) g/dL RDW Std Deviation (36.4-46.3) fL RDW Coeff of Ruth (11.5-14.5) % Plt Count (130-400) K/uL MPV (7.4-10.4) fL Neutrophils % (Manual) % Lymphocytes % (Manual) % Monocytes % (Manual) % Eosinophils % (Manual) % Metamyelocytes % (Man) % Myelocytes % (Man) % Neutrophils # (Manual) (1.4-6.5) K/uL Total Absolute Neuts (1.4-6.5) K/uL Lymphocytes # (Manual) (1.2-3.4) K/uL Total Abs Lymphocytes (1.2-3.4) K/uL Monocytes # (Manual) (0.11-0.59) K/uL Eosinophils # (Manual) (0-0.5) K/uL Metamyelocytes # (Man) (0-0) K/uL Myelocytes # (Manual) (0-0) K/uL Hypersegmented Neuts Toxic Granulation Polychromasia PT (9.0-12.0) Seconds INR (0.9-1.1) APTT (21.0-31.0) Seconds PTT Ratio Sodium 134 L (136-145) mmol/L Potassium 3.8 (3.5-5.1) mmol/L Chloride 97 L (98-107) mmol/L Carbon Dioxide 32 (21-32) mmol/L Anion Gap 6.0 (3-11) BUN 49 H (7-18) mg/dl Creatinine 1.65 H (0.6-1.4) mg/dl Est Cr Clr Drug Dosing Not Reportable Est GFR ( Amer) 44.1 ml/min Est GFR (Non-Af Amer) 38.1 ml/min BUN/Creatinine Ratio 29.9 H (10-20) Glucose 137 H (70-99) mg/dl Calcium 8.8 (8.5-10.1) mg/dl Magnesium 2.2 (1.8-2.4) mg/dl Total Bilirubin 0.6 (0.2-1) mg/dl AST 60 H (15-37) U/L ALT 63 (12-78) U/L Alkaline Phosphatase 72 (45-117) U/L Troponin I 0.029 (0-0.045) ng/ml Total Protein 6.3 L (6.4-8.2) gm/dl Albumin 2.6 L (3.4-5.0) gm/dl Globulin 3.7 (2.5-4.0) gm/dl Albumin/Globulin Ratio 0.7 L (0.9-2) TSH 1.020 (0.300-4.500) uIu/ml Urine Color Red Urine Appearance Cloudy A (Clear) Urine pH (4.5-7.5) Ur Specific Weston 1.019 (1.000-1.030) Urine Protein (Negative) Urine Glucose (UA) (Negative) Urine Ketones (Negative) Urine Blood (Negative) Urine Nitrite (Negative) Urine Bilirubin (Negative) Urine Urobilinogen (Negative) Ur Leukocyte Esterase (Negative) Urine RBC >30 H (0-4) /hpf Urine WBC 10-30 H (0-5) /hpf Ur Epithelial Cells 10-20 H (0-5) /lpf Urine Bacteria 1+ H (Negative) COVID-19 Eval Order Covid19 at [facility] SARS-CoV-2 (PCR) (Negative) Blood Type Antibody Screen Crossmatch 02/26/21 Range/Units 20:12 WBC (4.8-10.8) K/uL RBC (4.7-6.1) M/uL Hgb (14.0-18.0) g/dL Hct (42-52) % MCV (80-100) fL MCH (25-34) pg MCHC (32-36) g/dL RDW Std Deviation (36.4-46.3) fL RDW Coeff of Ruth (11.5-14.5) % Plt Count (130-400) K/uL MPV (7.4-10.4) fL Neutrophils % (Manual) % Lymphocytes % (Manual) % Monocytes % (Manual) % Eosinophils % (Manual) % Metamyelocytes % (Man) % Myelocytes % (Man) % Neutrophils # (Manual) (1.4-6.5) K/uL Total Absolute Neuts (1.4-6.5) K/uL Lymphocytes # (Manual) (1.2-3.4) K/uL Total Abs Lymphocytes (1.2-3.4) K/uL Monocytes # (Manual) (0.11-0.59) K/uL Eosinophils # (Manual) (0-0.5) K/uL Metamyelocytes # (Man) (0-0) K/uL Myelocytes # (Manual) (0-0) K/uL Hypersegmented Neuts Toxic Granulation Polychromasia PT (9.0-12.0) Seconds INR (0.9-1.1) APTT (21.0-31.0) Seconds PTT Ratio Sodium (136-145) mmol/L Potassium (3.5-5.1) mmol/L Chloride (98-107) mmol/L Carbon Dioxide (21-32) mmol/L Anion Gap (3-11) BUN (7-18) mg/dl Creatinine (0.6-1.4) mg/dl Est Cr Clr Drug Dosing Est GFR ( Amer) ml/min Est GFR (Non-Af Amer) ml/min BUN/Creatinine Ratio (10-20) Glucose (70-99) mg/dl Calcium (8.5-10.1) mg/dl Magnesium (1.8-2.4) mg/dl Total Bilirubin (0.2-1) mg/dl AST (15-37) U/L ALT (12-78) U/L Alkaline Phosphatase (45-117) U/L Troponin I (0-0.045) ng/ml Total Protein (6.4-8.2) gm/dl Albumin (3.4-5.0) gm/dl Globulin (2.5-4.0) gm/dl Albumin/Globulin Ratio (0.9-2) TSH (0.300-4.500) uIu/ml Urine Color Urine Appearance (Clear) Urine pH (4.5-7.5) Ur Specific Weston (1.000-1.030) Urine Protein (Negative) Urine Glucose (UA) (Negative) Urine Ketones (Negative) Urine Blood (Negative) Urine Nitrite (Negative) Urine Bilirubin (Negative) Urine Urobilinogen (Negative) Ur Leukocyte Esterase (Negative) Urine RBC (0-4) /hpf Urine WBC (0-5) /hpf Ur Epithelial Cells (0-5) /lpf Urine Bacteria (Negative) COVID-19 Eval Order SARS-CoV-2 (PCR) NEGATIVE (Negative) Blood Type Antibody Screen Crossmatch Administered Medications Discontinued Medications Sodium Chloride (Nss) 500 mls @ 999 mls/hr IV .Q31M LARRY Stop: 02/26/21 19:45 Last Infusion: 02/26/21 19:57 Dose: 0 mls/hr Documented by: [id number] Admin: 02/26/21 19:26 Dose: 999 mls/hr Documented by: [id number] Sodium Chloride (Nss 1000ml) 1,000 mls @ 125 mls/hr IV .Q8H STA Stop: 02/27/21 03:13 Last Admin: 02/26/21 19:55 Dose: 125 mls/hr Documented by: [id number] Ceftriaxone Sodium (Rocephin) 1,000 mg in 50 mls @ 100 mls/hr IV NOW STA Stop: 02/26/21 21:51 Last Infusion: 02/26/21 22:47 Dose: 0 mls/hr Documented by: [id number] Admin: 02/26/21 22:17 Dose: 100 mls/hr Documented by: [id number] Discharge Plan Visit Data Chief Complaint: Syncope (Near Syncope) Stated Complaint: NEAR SYNCOPE, HEMATURIA ED Provider: Good Warren Discharge Problem: Near syncope, Orthostasis, Hematuria, Anemia
[2021-02-26 20:22] LABS: Polychromasia 1+; Toxic Granulation 2+
[2021-02-26 20:33] LABS: ALC (manual) 0.85 K/uL (1.2-3.4); ANC (manual) 11.88 K/uL (1.4-6.5); Eosinophils # (manual) 0.14 K/uL (0-0.5); Lymphocytes # (manual) 0.85 K/uL (1.2-3.4); Metamyelocytes # (manual) 0.14 K/uL (0-0); Monocytes # (manual) 0.28 K/uL (0.11-0.59); Myelocytes # (manual) 0.85 K/uL (0-0); Neutrophils # (manual) 11.88 K/uL (1.4-6.5)
[2021-02-26 20:34] LABS: Appearance Urine Cloudy (Clear); Color Urine Red; Specific Gravity Urine 1.019 (1.000-1.030)
[2021-02-26 20:38] LABS: Bacteria Urine 1+ (Negative); RBC Urine >30 /hpf (0-4)
[2021-02-26] MEDS ORDERED: cefTRIAXone SODIUM 1,000 MG/50 ML BAG IV STA (21:22)
[2021-02-27] MEDS ORDERED: ONDANSETRON INJ 2 MG/ML 2 ML VIAL IV PRN (00:39)
[2021-02-27] MEDS ORDERED: SODIUM CHLORIDE 0.9% 250 ML IV PRN (00:39)
[2021-02-27] MEDS ORDERED: ACETAMINOPHEN 325 MG TAB PO PRN (00:39)
--- NOTE | 2021-02-27 00:53 | History and Physical Report ---
DATE OF ADMISSION: 02/26/2021. CHIEF COMPLAINT: Near syncope, hematuria. HISTORY OF PRESENT ILLNESS: This is an 80-year-old male with past medical history significant for hyperlipidemia, right sided heart failure, cor pulmonale, recent EF was showing only 35%, CAD, peripheral vascular disease status post stent, severe aortic stenosis, ASD status post closure, hypertension, hyperlipidemia, prostate cancer, status post surgery and radiation, seizure disorder, chronic anemia, history of alcohol abuse, past tobacco abuse. The patient was recently here in the hospital with new onset rapid AFib and also syncope. At that time because of his severe aortic stenosis and severe pulmonary hypertension, patient was transferred to [place]. At that time, he also had hyponatremia. In [place], his echo was done, showed EF of 35%, diffuse hypokinesis, severe aortic stenosis. He was started on heparin drip and changed to Eliquis. Supposed to get direct current cardioversion but he was found coming back to normal sinus rhythm. He was administered amiodarone to help with rhythm control and advised to follow up with the [facility] and also advised to repeat echocardiogram. Also had hematuria during the hospitalization in [place]. He was seen by Urology was performed continuous bladder irrigation. It was felt that the hematuria was secondary to either radiation or from traumatic Grande insertion. Renal ultrasound showed no notable abnormalities. His hemoglobin was stable and he was discharged on 02/24/2021 and advised to follow up with Cardiology in next 3-5 days with Urology and Valve Clinic. Patient says after coming home, he was not feeling well, he was feeling weak and tired, feeling lightheaded, almost passing out and also has ongoing hematuria that is the reason he came here yesterday. Hemodynamics are stable. Denies any chest pain, no shortness of breath. Has some cough and bringing some abdelrahman colored sputum. Denies any headache. No blurred visions, no earache, no runny nose. Has some sore throat, no nausea, no abdominal pain. Bowels are moving okay. Denies any blood in the stools. Swelling in the legs. He says for the last 7 days, he did not drink any alcohol. ALLERGIES: BEE VENOM, LORAZEPAM. PAST MEDICAL HISTORY: As mentioned above. PAST SURGICAL HISTORY: Aortogram with bilateral lower extremity angiogram, colonoscopy, left and right heart catheterization, left iliofemoral endarterectomy with pericardial patch angioplasty with extension into the deep femoral artery, left superficial femoral artery balloon angioplasty and Absolute Pro self-expanding stent placement, DC cardioversion, cervical and lumbar hemilaminectomy left side, iliac artery revascularization, single lumbar laminectomy, left lumbar hemilaminectomy to single site, needle/punch biopsy of prostate, removal of appendectomy, tonsillectomy, sacroiliac joint injection, removal of neck spine lamina, left carotid endarterectomy. MEDICATIONS: The patient is on amiodarone 200 mg p.o. t.i.d., amoxicillin 2 mg p.o. p.r.n., Eliquis 5 mg p.o. b.i.d., vitamin C 500 mg p.o. daily, atorvastatin 20 mg p.o. at bedtime, calcium plus vitamin D 1 capsule p.o. daily, vitamin D 50 mcg p.o. daily, Plavix 75 mg p.o. daily, Coenzyme Q10 200 mg p.o. daily, EpiPen 0.3 mg IM p.r.n., ezetimbe 10 mg p.o. daily, Lasix 40 mg p.o. b.i.d., gabapentin 400 mg p.o. t.i.d., Keppra 500 mg p.o. b.i.d., Metamucil 1 tablespoon p.o. daily p.r.n., metoprolol tartrate 50 mg p.o. daily, multivitamin one tablet p.o. daily, sildenafil 20 mg p.o. b.i.d., terazosin 10 mg p.o. at bedtime, vitamin B1 100 mg p.o. daily. FAMILY HISTORY: Significant for brother has skin cancer. Father had throat and prostate cancer. Mother of CHF; mother had lung disorder. SOCIAL HISTORY: , former smoker, quit in 1978, smoked 2 packs a day. Alcohol 2-3 drinks per day, for the last 7 days he is not drinking alcohol. No drug use. REVIEW OF SYSTEMS: As per HPI. Rest of review of systems is negative. PHYSICAL EXAMINATION: GENERAL: The patient is of moderate build, not in acute distress. VITAL SIGNS: Temperature 36.7, pulse 67, respiratory rate 19, blood pressure 120/56, oxygen 93% on room air. HEENT: Pupils equal, round and reactive to light. Oral mucosa moist. NECK: No JVD, no neck masses. CARDIOVASCULAR: S1 and S2 heard. Regular rate and rhythm. No murmur, no gallop. RESPIRATORY: Normal AP diameter. No accessory muscle use. No wheezing, no crackles. ABDOMEN: Soft, bowel sounds present, nontender, no distention. CENTRAL NERVOUS SYSTEM: Cranial nerves II-XII grossly intact, nonfocal. EXTREMITIES: No edema, no erythema. LABORATORY DATA: WBC 14.1, hemoglobin 7.9, hematocrit of 24, platelets 553. PT 11.5, INR 1.1, APTT 29.1. Sodium 134, potassium 3.8, chloride 97, bicarbonate 32, BUN 49, creatinine 1.65, serum glucose 137, calcium 8.8, magnesium 2.2, total bilirubin 0.6, AST 60, ALT 63, alkaline phosphatase 72. Troponin-I 0.029. TSH is 1.02. Urinalysis cloudy + bacteria. SARS-CoV-2 PCR negative. ASSESSMENT AND PLAN: This is an 80-year-old male, presents with ongoing feeling weak and tired and lightheaded and ongoing hematuria. 1. Near syncope, feeling weak and tired and dizziness almost passing out probably secondary to ongoing hematuria with low hemoglobin. check his orthostatics. Monitor in the tele floor. Recent echo showed EF of 35%. Consult Cardiology in a.m. for further recommendations. 2. Hematuria Since at [place], possibly from radiation or traumatic Grande, hemoglobin 7.9. Transfuse 2 units of PRBCs n.p.o., and we will hold his Eliquis.Consult Urology. 3. History of atrial fibrillation: Continue his amiodarone. Holding his Eliquis. Continue his metoprolol and monitor. 4. History of severe aortic stenosis, supposed to follow with [facility] Clinic. Monitor for any volume overload. 5. History of right sided heart failure and chronic left systolic congestive heart failure, EF of 35%. Getting gentle fluids, patient is n.p.o., monitor for volume overload. Continue his home Lasix. 6. History of coronary artery disease. For now continue his Plavix, statin and beta javier. We will monitor. 7. Alcohol abuse. Currently he did not drink in last 11 days. We will monitor withdrawal. Continue his home gabapentin, multivitamin and thiamine. 8. Seizure disorder, continue his home Keppra. 9. Abdelrahman sputum of his leukocytosis, we will get CT of chest. bx rocephin and doxycyline. 10 Urinary tract infection also to be contributing for his weakness and near syncope. Follow the cultures, started on Rocephin. 11. Deep venous thrombosis prophylaxis, placed on sequential compression devices. DISPOSITION: Closely monitor in the tele floor. PT prior to discharge. Social service to help with discharge planning. Job ID: [id number] [facility]
[2021-02-27] MEDS ORDERED: EPINEPHrine INJ 1 MG/ML AMP IM PRN (00:55)
[2021-02-27] MEDS ORDERED: PSYLLIUM 58.6% POWDER PACKET PO PRN (01:00)
--- NOTE | 2021-02-27 01:44 | Urology Consultation ---
Date of Consultation February 27, 2021 Assessment & Plan (1) Hematuria: Patient has been admitted by the hospital service. We recommend proceeding as follows: Recommend following serial hemoglobin and hematocrits with transfusion as needed. Medical service is already ordered transfusion of 2 units of packed red blood cells. Will defer the need for transfusion to their discretion Concerning patient's hematuria I not feel the need to insert a Grande catheter at this time or institute continuous bladder irrigation as the patient notes he can empty his bladder after he urinates. If patient develops signs or symptoms of urinary outlet obstruction a Grande catheter can be inserted with irrigation attempts and potentially continuous bladder irrigation. May be beneficial to BladderScan the patient after voiding to ensure he is not retaining urine. It may be beneficial to hold anticoagulation until his hematuria clears Additional recommendations be forthcoming based on his clinical course as it unfolds History of Present Illness Reason for Consultation: Hematuria Attending Physician: Tl Valdivia MD History of Present Illness This is an 80-year-old male who presented to [facility] secondary to near syncope as well as hematuria. Patient had a recent admission to [facility] where patient had new onset atrial fibrillation and a syncopal episode. Patient was found to have severe aortic stenosis and was transferred to [place]. During that hospitalization the patient was anticoagulated with a heparin drip and transition to Eliquis. He converted back to normal sinus rhythm. It was noted that during that admission the patient was having hematuria. He was seen by urology and patient required continuous bladder irrigation. It was felt the patient's hematuria was secondary to either radiation proctitis or from traumatic Grande insertion. Patient was discharged home and was instructed to follow-up in the cardiology clinic in 3 to 5 days and was also instructed to follow-up with urology as well. Patient presented to emergency department this evening as patient was feeling weak and tired. He had an episode of lightheadedness and had a near syncopal episode. Patient also notes that since discharge from [place] he has been having persistent hematuria with some clots in it. Patient denies any dysuria. He does note that when he urinates he can completely empty his bladder. Since arriving back to [facility] he has had labs which include a CBC were white blood cell count is 14.4. His hemoglobin and hematocrit were noted to be 7.9 and 24.0. Platelet count is 553,000. A chemistry profile showed sodium was 134 and potassium was within the normal range. His BUN and creatinine were 49 and 1.65. His BUN and creatinine were near his baseline levels. Coagulation studies were noted to be within the normal range. Urinalysis was performed that showed greater than 30 red blood cells per high-power field and 10-30 white blood cells per high-power field with 1+ bacteria. A Covid test was performed and was noted to be negative. At the time of my interview the patient was resting comfortably in bed and he was in no distress. Allergies Allergy/AdvReac Type Severity Reaction Status Date / Time bee venom protein (honey bee) Allergy Severe ANAPHYLAXIS-YELLOW Verified 02/26/21 19:22 JACKETS lorazepam AdvReac Mild oversedation Verified 02/26/21 19:22 from AWSS protocol Uncoded Nonscreenable Allergy Severe All Uncoded 02/26/21 19:22 Allergen IV's must be administered thru 0.2mic in-line filter Home Medications Medication Instructions Recorded Confirmed Type amoxicillin 500 mg capsule 2,000 mg PO DIRECTED PRN 02/18/21 02/26/21 History ascorbic acid (vitamin C) 500 mg 500 mg PO DAILY 02/18/21 02/26/21 History tablet (Vitamin C) atorvastatin 20 mg tablet 20 mg PO HS 02/18/21 02/26/21 History calcium carbonate-vitamin D3 600 1 cap PO DAILY 02/18/21 02/26/21 History mg calcium-200 unit capsule (Calcium 600 + D(3)) cholecalciferol (vitamin D3) 50 50 mcg PO DAILY 02/18/21 02/26/21 History mcg (2,000 unit) capsule (Vitamin D3) clopidogrel 75 mg tablet 75 mg PO DAILY 02/18/21 02/26/21 History coQ10 (ubiquinol) 200 mg capsule 200 mg PO DAILY 02/18/21 02/26/21 History epinephrine 0.3 mg/0.3 mL 0.3 mg IM DIRECTED PRN 02/18/21 02/26/21 History injection, auto-injector (EpiPen) ezetimibe 10 mg tablet 10 mg PO DAILY 02/18/21 02/26/21 History furosemide 40 mg tablet 40 mg PO BID 02/18/21 02/26/21 History gabapentin 400 mg capsule 400 mg PO TID 02/18/21 02/26/21 History levetiracetam 500 mg tablet 500 mg PO BID 02/18/21 02/26/21 History multivitamin 1 tab PO DAILY 02/18/21 02/26/21 History psyllium seed (sugar) oral powder 1 tbsp PO DAILY PRN 02/18/21 02/26/21 History (Metamucil (sugar)) sildenafil (pulm.hypertension) 20 20 mg PO BID 02/18/21 02/26/21 History mg tablet terazosin 10 mg capsule 10 mg PO HS 02/18/21 02/26/21 History amiodarone 200 mg tablet 200 mg PO TID 02/26/21 02/26/21 History apixaban 5 mg tablet (Eliquis) 5 mg PO BID 02/26/21 02/26/21 History metoprolol tartrate 50 mg tablet 50 mg PO TID 02/26/21 02/26/21 History thiamine HCl (vitamin B1) 100 mg 100 mg PO DAILY 02/26/21 02/26/21 History tablet (Vitamin B-1) Patient History Social History Smoking Status: Never smoker Tobacco Type: Cigarettes Second Hand Exposure: No; Hx Alcohol Use: Yes Alcohol type: beer Hx Substance Use: No Preferred Language: Pakistani Communication Ability: Effective Community Fundraiser Required: No Beliefs That Will Affect Care: None marital status: Current Living Situation: Spouse Other Information That Helps Us Care for You: No Feels Safe at Home: Yes Safety Concerns: Feels Safe At This Time Assistive Devices: Walker Review of Systems Constitutional: no fever and no chills Eyes: no diplopia Ear, Nose, Mouth, Throat: no ear pain Respiratory: no cough and no dyspnea Cardiovascular: no chest pain Gastrointestinal: no abdominal pain Genitourinary: + hematuria Musculoskeletal: no back pain Integumentary: no rash Neurologic: no localized weakness Physical Exam Constitutional: well developed and well nourished; no acute distress Eyes: no conjunctival abnormality ENMT: Ears: no hearing impairment Mouth: no oropharynx abnormality Neck: trachea midline Respiratory: normal respiratory effort, lungs clear to auscultation Cardiovascular: Rate/Rhythm: regular rate and regular rhythm Heart Sounds: + murmur Gastrointestinal (Abdomen): Abdomen is soft and nondistended. There is no pain with palpation Musculoskeletal: No calf tenderness Skin: no rashes Neurologic: moves all extremities Psychiatric: A+Ox3, euthymic affect Results & Data ([facility]) Vital Signs (Past 12 Hours) Vital Signs Temp Pulse Pulse Resp BP BP Pulse Ox 02/27/21 00:39 36.6 C 77 20 100/50 L 95 02/26/21 22:30 66 18 127/71 94 02/26/21 22:00 69 18 120/61 95 02/26/21 21:30 66 19 127/57 L 93 02/26/21 21:00 67 19 125/56 L 93 02/26/21 20:30 67 19 126/50 L 94 02/26/21 20:00 72 21 111/52 L 98 02/26/21 18:57 36.7 C 73 21 114/58 L 94 PG Care Time/CCT Total # of Minutes Spent Total Time Spent with Patient: Total time spent is greater than 50% in coordination of care (as documented) at patient's floor/unit and/or counseling patient: Coding Level of Care Code 89396 Inpt Consult Level 5 Diagnoses Hematuria R31.9
[2021-02-27] MEDS ORDERED: FUROSEMIDE 40 MG/4 ML VIAL IV ONE (03:00)
[2021-02-27] MEDS: SODIUM CHLORIDE 0.9% 1000ML 1,000 ML IV SCH (03:12)
[2021-02-27] MEDS: DOXYCYCLINE HYCLATE 100 MG CAP PO SCH ×3 (03:13→21:19)
[2021-02-27] MEDS: THIAMINE HCL 100 MG TAB PO SCH (08:04)
[2021-02-27] MEDS: CHOLECALCIFEROL 1,000 UNITS 25 MCG TAB PO SCH (08:04)
[2021-02-27] MEDS: EZETIMIBE 10 MG TABLET PO SCH (08:04)
[2021-02-27] MEDS: SILDENAFIL CITRATE 20 MG TABLET PO SCH ×2 (08:05→21:20)
[2021-02-27] MEDS: METOPROLOL TARTRATE 50 MG TAB PO SCH ×3 (08:05→21:18)
[2021-02-27] MEDS: MULTIVITAMIN TAB PO SCH (08:05)
[2021-02-27] MEDS: ASCORBIC ACID 500 MG TAB PO SCH (08:05)
[2021-02-27] MEDS: AMIODARONE 200 MG TAB PO SCH ×3 (08:06→21:18)
[2021-02-27] MEDS: levETIRAcetam 500 MG TAB PO SCH ×2 (08:06→21:19)
[2021-02-27] MEDS: FUROSEMIDE 40 MG TAB PO SCH ×2 (08:06→16:48)
[2021-02-27] MEDS: GABAPENTIN 400 MG CAP PO SCH ×3 (08:06→21:19)
[2021-02-27] MEDS ORDERED: PIPERACILL/TAZOBAC CONSULT ACTIVE PRN (08:59)
[2021-02-27] MEDS ORDERED: NON-FORMULARY MEDICATION (Coq10 (Ubiquinol) 200 mg Capsule) PO SCH (09:00)
[2021-02-27] MEDS ORDERED: CLOPIDOGREL BISULFATE 75 MG TAB PO SCH (09:00)
--- NOTE | 2021-02-27 09:14 | Cardiology Consultation ---
Date of Consultation February 27, 2021 Assessment & Plan (1) Severe calcific aortic stenosis: The plan will be most likely for a MEL in the future (2) PAF (paroxysmal atrial fibrillation): Continue amiodarone. Okay with stopping the Eliquis due to bleeding (3) Anemia: The patient received 2 units of packed cells and hemoglobin is now 9.4 (4) Hematuria: Urology has been consulted I would continue the patient on amiodarone. Agree with starting anticoagulation and antiplatelet agents until hematuria has resolved. Short- term is for supportive care however, long-term the patient will need aortic valve replacement. History of Present Illness Attending Physician: Tl Valdivia MD History of Present Illness This is an 80-year-old male patient who has had a recent and past complex medi carol history. Some of his history is provided below. More recently, the patient was admitted following a syncopal event. He has critical calcific aortic stenosis and was having atrial fibrillation with probable hemodynamic compromise due to his valvular heart disease. The patient was transferred to [facility] where they were about to do a IRENA followed by a cardioversion on the patient spontaneously converted to normal sinus rhythm. He was started on amiodarone and Eliquis and subsequently discharged with the plan for the patient to follow- up as an outpatient for a possible MEL. Unfortunately, the patient had a traumatic insertion of a Grande catheter. He has a history of prostate cancer with radiation. Urology did see the patient at [facility] and recommended a continued indwelling Grande catheter. After discharge however, the patient has had hematuria and was admitted to this hospital with profound anemia feeling fatigued, shaky and short of breath. He has received a couple of units of blood and feels better. He was also started on antibiotic coverage and taken off of Eliquis and Plavix. Patient is currently resting comfortably. Past medical history: 1. Severe calcific aortic stenosis 2. Prior ASD PFO closure with percutaneous device 12/14/2017 with peridevice residual left to right shunt 3. Mild coronary artery disease by cardiac catheterization 2017 4. Atherosclerotic peripheral vascular disease with bilateral carotid artery disease status post left carotid enterectomy 2014, right external iliac angioplasty and stent implantation, left iliofemoral endarterectomy and angioplasty with bilateral common iliac artery stenting 2011 5. Hypertension 6. Treatment for possible generalized seizure following unwitnessed syncope 2017 7. Hyperlipidemia on therapy 8. 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, chronic sildenafil Allergies Allergy/AdvReac Type Severity Reaction Status Date / Time bee venom protein (honey bee) Allergy Severe ANAPHYLAXIS-YELLOW Verified 02/26/21 19:22 JACKETS lorazepam AdvReac Mild oversedation Verified 02/26/21 19:22 from AWSS protocol Uncoded Nonscreenable Allergy Severe All Uncoded 02/26/21 19:22 Allergen IV's must be administered thru 0.2mic in-line filter Home Medications Medication Instructions Recorded Confirmed Type amoxicillin 500 mg capsule 2,000 mg PO DIRECTED PRN 02/18/21 02/26/21 History ascorbic acid (vitamin C) 500 mg 500 mg PO DAILY 02/18/21 02/26/21 History tablet (Vitamin C) atorvastatin 20 mg tablet 20 mg PO HS 02/18/21 02/26/21 History calcium carbonate-vitamin D3 600 1 cap PO DAILY 02/18/21 02/26/21 History mg calcium-200 unit capsule (Calcium 600 + D(3)) cholecalciferol (vitamin D3) 50 50 mcg PO DAILY 02/18/21 02/26/21 History mcg (2,000 unit) capsule (Vitamin D3) clopidogrel 75 mg tablet 75 mg PO DAILY 02/18/21 02/26/21 History coQ10 (ubiquinol) 200 mg capsule 200 mg PO DAILY 02/18/21 02/26/21 History epinephrine 0.3 mg/0.3 mL 0.3 mg IM DIRECTED PRN 02/18/21 02/26/21 History injection, auto-injector (EpiPen) ezetimibe 10 mg tablet 10 mg PO DAILY 02/18/21 02/26/21 History furosemide 40 mg tablet 40 mg PO BID 02/18/21 02/26/21 History gabapentin 400 mg capsule 400 mg PO TID 02/18/21 02/26/21 History levetiracetam 500 mg tablet 500 mg PO BID 02/18/21 02/26/21 History multivitamin 1 tab PO DAILY 02/18/21 02/26/21 History psyllium seed (sugar) oral powder 1 tbsp PO DAILY PRN 02/18/21 02/26/21 History (Metamucil (sugar)) sildenafil (pulm.hypertension) 20 20 mg PO BID 02/18/21 02/26/21 History mg tablet terazosin 10 mg capsule 10 mg PO HS 02/18/21 02/26/21 History amiodarone 200 mg tablet 200 mg PO TID 02/26/21 02/26/21 History apixaban 5 mg tablet (Eliquis) 5 mg PO BID 02/26/21 02/26/21 History metoprolol tartrate 50 mg tablet 50 mg PO TID 02/26/21 02/26/21 History thiamine HCl (vitamin B1) 100 mg 100 mg PO DAILY 02/26/21 02/26/21 History tablet (Vitamin B-1) Patient History Medical History (Updated 02/28/21 @ 13:55 by Mihir Knott MD) Anemia Atrial fibrillation, new onset Gout H/O alcohol dependence Hematuria Hypokalemia Hyponatremia Lumbar radiculopathy Orthostasis PAF (paroxysmal atrial fibrillation) Right heart failure due to pulmonary hypertension Severe calcific aortic stenosis Social History Smoking Status: Never smoker Tobacco Type: Cigarettes Second Hand Exposure: No; Hx Alcohol Use: Yes Alcohol type: beer Hx Substance Use: No Preferred Language: Uzbek Communication Ability: Effective Medical Advisor Required: No Beliefs That Will Affect Care: None marital status: Current Living Situation: Spouse How many Children do You have: 1 Other Information That Helps Us Care for You: No Feels Safe at Home: Yes Safety Concerns: Feels Safe At This Time Assistive Devices: Cane and Walker Review of Systems Review of Systems: Review of Systems: See HPI for pertinent positives. All other 10 point review of systems are negative. Physical Exam Physical Exam: General: no acute distress and stated age Head: normocephalic, no masses, lesions, tenderness or abnormalities Eyes: conjunctiva are pink and non-injected, sclera clear Neck: supple, no adenopathy, no bruits, normal jugular venous pulse, no hepatojugular reflux Chest: normal shape and normal respiratory effort Lungs: clear to auscultation and percussion Cardiac Exam: - regular rate & rhythm, systolic murmur left sternal border- normal S1, normal S2 Pulses: 2(+) throughout Abdomen: abdomen soft, non-tender, no abnormal masses and no hepatosplenomegaly Musculoskeletal: no gait disturbance, no joint inflammation, no deforming arthritis Extremities: no edema and no cyanosis Neuro: grossly normal exam Results & Data ([facility]) Vital Signs (Past 12 Hours) Vital Signs Temp Pulse Pulse Resp BP BP Pulse Ox 02/27/21 08:55 68 02/27/21 08:28 36.5 C 67 18 124/56 L 93 02/27/21 07:48 36.4 C L 73 18 156/57 H 97 02/27/21 06:48 36.5 C 67 18 132/67 96 02/27/21 06:18 36.6 C 74 16 129/63 94 02/27/21 06:03 36.5 C 70 18 110/59 L 95 02/27/21 05:48 36.2 C L 65 18 137/64 94 02/27/21 05:41 36.2 C L 67 18 137/64 94 02/27/21 04:40 36.6 C 71 18 123/56 L 92 02/27/21 04:04 36.8 C 69 18 124/66 94 02/27/21 03:04 36.4 C L 67 18 124/60 94 02/27/21 02:34 36.4 C L 67 18 131/66 93 02/27/21 02:19 36.7 C 74 18 112/56 L 94 02/27/21 01:58 36.6 C 67 18 120/59 L 94 02/27/21 01:00 69 02/27/21 00:39 36.6 C 77 20 100/50 L 95 02/26/21 22:30 66 18 127/71 94 02/26/21 22:00 69 18 120/61 95 02/26/21 21:30 66 19 127/57 L 93 Laboratory Results Laboratory Results - last 24 hr 02/26/21 02/26/21 02/26/21 19:30 19:30 19:30 WBC 14.14 H RBC 2.82 L Hgb 7.9 L Hct 24.0 L MCV 85.1 MCH 28.0 MCHC 32.9 RDW Std Deviation 47.1 H RDW Coeff of Ruth 15.0 H Plt Count 553 H MPV 8.5 Neutrophils % (Manual) 84.0 Lymphocytes % (Manual) 6.0 Monocytes % (Manual) 2.0 Eosinophils % (Manual) 1.0 Metamyelocytes % (Man) 1.0 Myelocytes % (Man) 6.0 Neutrophils # (Manual) 11.88 H Total Absolute Neuts 11.88 H Lymphocytes # (Manual) 0.85 L Total Abs Lymphocytes 0.85 L Monocytes # (Manual) 0.28 Eosinophils # (Manual) 0.14 Metamyelocytes # (Man) 0.14 H Myelocytes # (Manual) 0.85 H Hypersegmented Neuts Occasional Toxic Granulation 2+ Toxic Vacuolation Polychromasia 1+ PT 11.5 INR 1.1 APTT 29.9 PTT Ratio 1.1 Sodium Potassium Chloride Carbon Dioxide Anion Gap BUN Creatinine Est Cr Clr Drug Dosing Est GFR ( Amer) Est GFR (Non-Af Amer) BUN/Creatinine Ratio Glucose Calcium Magnesium Total Bilirubin AST ALT Alkaline Phosphatase Troponin I Total Protein Albumin Globulin Albumin/Globulin Ratio TSH Urine Color Urine Appearance Urine pH Ur Specific [place] Urine Protein Urine Glucose (UA) Urine Ketones Urine Blood Urine Nitrite Urine Bilirubin Urine Urobilinogen Ur Leukocyte Esterase Urine RBC Urine WBC Ur Epithelial Cells Urine Bacteria Nasal Screen MRSA (PCR) COVID-19 Eval Order SARS-CoV-2 (PCR) Blood Type A Negative Antibody Screen NEGATIVE Crossmatch See Detail 02/26/21 02/26/21 02/26/21 19:30 20:12 20:12 WBC RBC Hgb Hct MCV MCH MCHC RDW Std Deviation RDW Coeff of Ruth Plt Count MPV Neutrophils % (Manual) Lymphocytes % (Manual) Monocytes % (Manual) Eosinophils % (Manual) Metamyelocytes % (Man) Myelocytes % (Man) Neutrophils # (Manual) Total Absolute Neuts Lymphocytes # (Manual) Total Abs Lymphocytes Monocytes # (Manual) Eosinophils # (Manual) Metamyelocytes # (Man) Myelocytes # (Manual) Hypersegmented Neuts Toxic Granulation Toxic Vacuolation Polychromasia PT INR APTT PTT Ratio Sodium 134 L Potassium 3.8 Chloride 97 L Carbon Dioxide 32 Anion Gap 6.0 BUN 49 H Creatinine 1.65 H Est Cr Clr Drug Dosing Not Reportable Est GFR ( Amer) 44.1 Est GFR (Non-Af Amer) 38.1 BUN/Creatinine Ratio 29.9 H Glucose 137 H Calcium 8.8 Magnesium 2.2 Total Bilirubin 0.6 AST 60 H ALT 63 Alkaline Phosphatase 72 Troponin I 0.029 Total Protein 6.3 L Albumin 2.6 L Globulin 3.7 Albumin/Globulin Ratio 0.7 L TSH 1.020 Urine Color Red Urine Appearance Cloudy A Urine pH Ur Specific [place] 1.019 Urine Protein Urine Glucose (UA) Urine Ketones Urine Blood Urine Nitrite Urine Bilirubin Urine Urobilinogen Ur Leukocyte Esterase Urine RBC >30 H Urine WBC 10-30 H Ur Epithelial Cells 10-20 H Urine Bacteria 1+ H Nasal Screen MRSA (PCR) COVID-19 Eval Order Covid19 at [facility] SARS-CoV-2 (PCR) Blood Type Antibody Screen Crossmatch 02/26/21 02/27/21 02/27/21 20:12 09:08 09:08 WBC 13.15 H RBC 3.48 L Hgb 10.1 L Hct 30.2 L MCV 86.8 MCH 29.0 MCHC 33.4 RDW Std Deviation 47.5 H RDW Coeff of Ruth 15.2 H Plt Count 486 H MPV 8.6 Neutrophils % (Manual) 80.0 Lymphocytes % (Manual) 13.0 Monocytes % (Manual) 4.3 Eosinophils % (Manual) 0.9 Metamyelocytes % (Man) 0.9 Myelocytes % (Man) 0.9 Neutrophils # (Manual) 10.52 H Total Absolute Neuts 10.52 H Lymphocytes # (Manual) 1.71 Total Abs Lymphocytes 1.71 Monocytes # (Manual) 0.57 Eosinophils # (Manual) 0.12 Metamyelocytes # (Man) 0.12 H Myelocytes # (Manual) 0.12 H Hypersegmented Neuts Toxic Granulation 1+ Toxic Vacuolation 1+ Polychromasia 1+ PT INR APTT PTT Ratio Sodium 138 Potassium 3.6 Chloride 101 Carbon Dioxide 28 Anion Gap 8.0 BUN 35 H Creatinine 1.27 D Est Cr Clr Drug Dosing 37.6 Est GFR ( Amer) 60.6 Est GFR (Non-Af Amer) 52.3 BUN/Creatinine Ratio 27.4 H Glucose 131 H Calcium 8.4 L Magnesium 2.1 Total Bilirubin AST ALT Alkaline Phosphatase Troponin I Total Protein Albumin Globulin Albumin/Globulin Ratio TSH Urine Color Urine Appearance Urine pH Ur Specific [place] Urine Protein Urine Glucose (UA) Urine Ketones Urine Blood Urine Nitrite Urine Bilirubin Urine Urobilinogen Ur Leukocyte Esterase Urine RBC Urine WBC Ur Epithelial Cells Urine Bacteria Nasal Screen MRSA (PCR) COVID-19 Eval Order SARS-CoV-2 (PCR) NEGATIVE Blood Type Antibody Screen Crossmatch 02/27/21 02/27/21 11:36 Unknown WBC RBC Hgb 9.7 L Hct 28.9 L MCV MCH MCHC RDW Std Deviation RDW Coeff of Ruth Plt Count MPV Neutrophils % (Manual) Lymphocytes % (Manual) Monocytes % (Manual) Eosinophils % (Manual) Metamyelocytes % (Man) Myelocytes % (Man) Neutrophils # (Manual) Total Absolute Neuts Lymphocytes # (Manual) Total Abs Lymphocytes Monocytes # (Manual) Eosinophils # (Manual) Metamyelocytes # (Man) Myelocytes # (Manual) Hypersegmented Neuts Toxic Granulation Toxic Vacuolation Polychromasia PT INR APTT PTT Ratio Sodium Potassium Chloride Carbon Dioxide Anion Gap BUN Creatinine Est Cr Clr Drug Dosing Est GFR ( Amer) Est GFR (Non-Af Amer) BUN/Creatinine Ratio Glucose Calcium Magnesium Total Bilirubin AST ALT Alkaline Phosphatase Troponin I Total Protein Albumin Globulin Albumin/Globulin Ratio TSH Urine Color Urine Appearance Urine pH Ur Specific [place] Urine Protein Urine Glucose (UA) Urine Ketones Urine Blood Urine Nitrite Urine Bilirubin Urine Urobilinogen Ur Leukocyte Esterase Urine RBC Urine WBC Ur Epithelial Cells Urine Bacteria Nasal Screen MRSA (PCR) Negative COVID-19 Eval Order SARS-CoV-2 (PCR) Blood Type Antibody Screen Crossmatch Medications Administered Current Inpatient Medications Acetaminophen (Acetaminophen 325 Mg Tab) 650 mg PO Q4H PRN PRN Reason: Pain or Fever Stop: 03/29/21 00:38 Amiodarone HCl (Amiodarone 200 Mg Tab) 200 mg PO TID [facility] Stop: 03/06/21 23:59 Last Admin: 02/27/21 08:06 Dose: 200 mg Documented by: Amiodarone HCl (Amiodarone 200 Mg Tab) 200 mg PO QAM [facility] Stop: 04/06/21 08:59 Ascorbic Acid (Ascorbic Acid 500 Mg Tab) 500 mg PO DAILY LARRY Stop: 03/29/21 08:59 Last Admin: 02/27/21 08:05 Dose: 500 mg Documented by: Atorvastatin Calcium (Atorvastatin 20 Mg Tab) 20 mg PO HS [facility] Stop: 03/29/21 20:59 Doxycycline Hyclate (Doxycycline Hyclate 100 Mg Cap) 100 mg PO BID [facility] Stop: 03/06/21 00:38 Last Admin: 02/27/21 08:04 Dose: 100 mg Documented by: Ezetimibe (Ezetimibe 10 Mg Tablet) 10 mg PO DAILY [facility] Stop: 03/29/21 08:59 Last Admin: 02/27/21 08:04 Dose: 10 mg Documented by: Epinephrine HCl (Epinephrine Inj 1 Mg/Ml Amp) 0.3 mg IM UD PRN PRN Reason: Allergic Reaction Stop: 03/29/21 00:54 Furosemide (Furosemide 40 Mg Tab) 40 mg PO [id number] [facility] Stop: 03/29/21 08:59 Last Admin: 02/27/21 08:06 Dose: 40 mg Documented by: Gabapentin (Gabapentin 400 Mg Cap) 400 mg PO TID LARRY Stop: 03/29/21 08:59 Last Admin: 02/27/21 08:06 Dose: 400 mg Documented by: Sodium Chloride (Nss 1000ml) 1,000 mls @ 50 mls/hr IV .Q20H [facility] Stop: 03/29/21 00:38 Last Admin: 02/27/21 03:12 Dose: 50 mls/hr Documented by: Sodium Chloride (Nss) 250 mls @ 15 mls/hr IV .[id number] PRN PRN Reason: For Transfusion Stop: 03/29/21 00:38 Piperacillin Sod/Tazobactam (Sod 3.375 gm/ Dextrose) 115 mls @ 28.75 mls/hr IV Q8H [facility]; Protocol Stop: 03/06/21 14:59 Levetiracetam (Levetiracetam 500 Mg Tab) 500 mg PO BID [facility] Stop: 03/29/21 08:59 Last Admin: 02/27/21 08:06 Dose: 500 mg Documented by: Metoprolol Tartrate (Metoprolol Tartrate 50 Mg Tab) 50 mg PO TID [facility] Stop: 03/29/21 08:59 Last Admin: 02/27/21 08:05 Dose: 50 mg Documented by: Miscellaneous Information (Piperacill/Tazobac Consult Active) 1 ea N/A UD PRN PRN Reason: Consult Stop: 03/29/21 08:58 Multivitamins (Multivitamin Tab) 1 tab PO DAILY [facility] Stop: 03/29/21 08:59 Last Admin: 02/27/21 08:05 Dose: 1 tab Documented by: Multivitamins/Minerals (Calcium 600mg + Vit D 400 Iu Tab) 1 tab PO DAILY@1100 [facility] Stop: 03/29/21 10:59 Last Admin: 02/27/21 10:07 Dose: 1 tab Documented by: Ondansetron HCl (Ondansetron Inj 2 Mg/Ml 2 Ml Vial) 4 mg IV Q6H PRN PRN Reason: Nausea Stop: 03/29/21 00:38 Psyllium Hydrophilic Mucilloid (Psyllium 58.6% Powder Packet) 1 pkt PO DAILY PRN PRN Reason: Constipation Stop: 03/29/21 00:59 Sildenafil Citrate (Sildenafil Citrate 20 Mg Tablet) 20 mg PO BID LARRY Stop: 03/29/21 08:59 Last Admin: 02/27/21 08:05 Dose: 20 mg Documented by: Terazosin HCl (Terazosin Hcl 5 Mg Cap) 10 mg PO HS [facility] Stop: 03/29/21 20:59 Thiamine HCl (Thiamine Hcl 100 Mg Tab) 100 mg PO DAILY LARRY Stop: 03/29/21 08:59 Last Admin: 02/27/21 08:04 Dose: 100 mg Documented by: Vitamin D (Cholecalciferol 1,000 Units 25 Mcg Tab) 2,000 units PO DAILY LARRY Stop: 03/29/21 08:59 Last Admin: 02/27/21 08:04 Dose: 2,000 units Documented by:
--- NOTE | 2021-02-27 09:20 | CT Scan Report ---
CT chest diagnostic wo con CT DOSE: 310.24 mGy.cm HISTORY: bloody sputum TECHNIQUE: Multiaxial CT images of the chest were performed without contrast. A dose lowering techni que was utilized adhering to the principles of ALARA. COMPARISON: Chest CTA 11/16/2015. FINDINGS: No pneumothorax. Trace left pleural effusion. There is also trace pericardial effusion. The heart is enlarged. Respiratory motion artifact. Consolidative airspace opacities within the superior segment of the left lower lobe. This likely represents a pneumonia. Mild interlobular septal thicken ing, right greater than left consistent with mild asymmetric congestive change/edema. No suspicious l ytic or blastic osseous lesions. Calcified plaque within the normal caliber thoracic aorta. An atrial septal defect closure device is noted. Dense mitral annulus calcifications. The visualized liver, sp jaylen, and adrenal glands are unremarkable. Mild pulmonary arterial hypertension, unchanged. No medias tinal lymphadenopathy. There is abrupt cut off within a branch of the left lower lobe superior segmen van bronchus best seen on image 138. This could be due to mucoid opacification or an obstructing lesi on. Therefore, follow-up bronchoscopy recommended for further evaluation. This could account for the associated left lower lobe consolidative opacities. IMPRESSION: 1. Patchy areas consolidation within the superior segment of the left lower lobe. This likely represe nts a pneumonia. 2. There is an abrupt cut off within a branch of the left lower lobe superior segmental bronchus. The refore, this could be due to mucous plugging or an obstructing lesion. Follow-up bronchoscopy recomme nded for further evaluation. In addition, 2-[address] follow-up recommended to ensure resoluti on of the left lower lobe airspace opacities. 3. Cardiomegaly with mild asymmetric congestive change/edema and a trace left pleural effusion. ACT 112: Positive. There are findings on this exam that require communication between the performing entity and the patient following Patient Test Result Information Act ([place] Act 112) guidelines. Electronically signed by: Mihir Flores M.D. 02/27/2021 9:18 AM
[2021-02-27 09:25] LABS: Hematocrit (blood only) 30.2 % (42-52); Hemoglobin 10.1 g/dL (14.0-18.0); Mean Corpuscular Hgb Conc 33.4 g/dL (32-36); Mean Corpuscular Volume 86.8 fL (80-100); Mean Platelet Volume 8.6 fL (7.4-10.4); Platelet Count 486 K/uL (130-400); RDW Coefficient of Variation 15.2 % (11.5-14.5); RDW Standard Deviation 47.5 fL (36.4-46.3); Red Blood Count 3.48 M/uL (4.7-6.1); White Blood Count 13.15 K/uL (4.8-10.8)
[2021-02-27] MEDS ORDERED: PIPERACILLIN/TAZOBACTAM 3.375 GM in DEXTROSE 5% 100 ML IV ONE (09:30)
[2021-02-27 09:44] LABS: BUN Creatinine Ratio 27.4 (10-20); Calcium 8.4 mg/dl (8.5-10.1); Creatinine Clr Calc Pharmacy 37.6 ml/min; Est GFR (African American) 60.6 ml/min; Est GFR (Non-African American) 52.3 ml/min; Magnesium 2.1 mg/dl (1.8-2.4); Potassium 3.6 mmol/L (3.5-5.1)
[2021-02-27 09:46] LABS: ALC (manual) 1.71 K/uL (1.2-3.4); ANC (manual) 10.52 K/uL (1.4-6.5); Eosinophils # (manual) 0.12 K/uL (0-0.5); Eosinophils % (manual) 0.9 %; Lymphocytes # (manual) 1.71 K/uL (1.2-3.4); Metamyelocytes # (manual) 0.12 K/uL (0-0); Metamyelocytes % (manual) 0.9 %; Monocytes # (manual) 0.57 K/uL (0.11-0.59); Monocytes % (manual) 4.3 %; Myelocytes # (manual) 0.12 K/uL (0-0); Myelocytes % (manual) 0.9 %; Neutrophils # (manual) 10.52 K/uL (1.4-6.5); Polychromasia 1+; Toxic Granulation 1+; Toxic Vacuolation 1+
--- NOTE | 2021-02-27 10:04 | Electrocardiogram Report ---
Test Reason : Blood Pressure : / mmHG Vent. Rate : 071 BPM Atrial Rate : 071 BPM P-R Int : 152 ms QRS Dur : 094 ms QT Int : 478 ms P-R-T Axes : 042 002 077 degrees QTc Int : 519 ms Normal sinus rhythm RSR' or QR pattern in V1 suggests right ventricular conduction delay Nonspecific ST abnormality Prolonged QT Abnormal ECG When compared with ECG of 21-FEB-2021 06:04, Sinus rhythm has replaced Atrial flutter Vent. rate has decreased BY 66 BPM Nonspecific T wave abnormality now evident in Lateral leads Confirmed by Olegario Beard ([id number]) on 02/27/2021 10:03:48 AM Referred By: REFERRED SELF Confirmed By:Olegario Beard
[2021-02-27] MEDS: CALCIUM 600MG + VIT D 400 IU TAB PO SCH (10:07)
--- NOTE | 2021-02-27 10:09 | Electrocardiogram Report ---
Test Reason : Blood Pressure : / mmHG Vent. Rate : 070 BPM Atrial Rate : 070 BPM P-R Int : 184 ms QRS Dur : 100 ms QT Int : 478 ms P-R-T Axes : 062 002 045 degrees QTc Int : 516 ms Normal sinus rhythm RSR' or QR pattern in V1 suggests right ventricular conduction delay Prolonged QT Abnormal ECG When compared with ECG of 26-FEB-2021 19:10, (unconfirmed) Nonspecific ST abnormality in the Lateral leads is no longer Present Confirmed by Olegario Beard ([id number]) on 02/27/2021 10:09:18 AM Referred By: REFERRED SELF Confirmed By:Olegario Beard
--- NOTE | 2021-02-27 11:07 | Hospitalist Progress Note ---
Date of Service February 27, 2021 Assessment & Plan (1) Anemia: (2) Hematuria: Plan: ED chills male with history of A. fib on Eliquis, CAD, CHF 35%, right-sided failure, CHF stenosis Prostate CA status post surgery and radiation, hypertension, seizure disorder, alcohol use, etc. Near syncope/weakness secondary to anemia, underlying pneumonia and UTI Management per below Anemia secondary to hematuria History of prostate cancer status post surgery and radiation In the setting of Eliquis use Globin 7.9 on admission, after 2 units of packed RBCs, now up to 10.1 Repeat H&H this afternoon Urology service consulted N.p.o. for now Eliquis on hold Hold Plavix as well ATRIAL FIBRILLATION HISTORY OF CAD, CHF 35% RIGHT-SIDED HEART FAILURE SEVERE AORTIC STENOSIS Rate controlled Continue amiodarone Metoprolol Continue Lasix 40 mg twice a day Eliquis and Plavix held Cardiology consulted POSSIBLE UTI Urine culture pending On ceftriaxone PNEUMONIA, LEFT LOWER LOBE POSSIBLE HCAP GIVEN RECENT ADMISSION TO THE HOSPITAL IN [facility] Blood cultures pending Sputum culture pending MRSA swab pending Respiratory status stable Continue ceftriaxone plus doxycycline HYPERTENSION Monitor SEIZURE DISORDER Continue Keppra 500 mg twice a day Alcohol use Smoker DVT prophylaxis SCDs Disposition Pending We will order PT and OT evaluation plan of care discussed with patient in detail and at length all questions answered he is understanding, agreeable, comfortable with the plan of care Admission and Anticipated Discharge Date Admission Date: February 26, 2021 Subjective Follow-up for anemia, near syncope, hematuria, etc. Seen resting in bed, comfortable, not in distress States he feels better compared to yesterday Still has hematuria No other signs of bleeding Has occasional cough, but no chest pain or shortness of breath, Denies fevers or chills No abdominal pain, nausea or vomiting Requesting to advance diet No other symptoms Review of Systems Review of Systems: all noted and negative except for above Physical Exam Physical Exam: General- oriented x 3, not in distress, speaks in sentences with no effort or accessory muscle use Head- atraumatic Eyes- PERRL, EOMI, anicteric ENT- oropharynx clear Neck- supple, no JVD, no adenopathy, no thyromegaly; carotids +2/2, no bruits appreciated Lungs-positive rhonchi left base, clear on the right No wheezing Heart- normal rate, irregularly irregular rhythm; no murmur, no gallop, no rub appreciated Abdomen- normal bowel sounds, nondistended, soft, nontender, no masses or hepatosplenomegaly Extremities- no pretibial edema, no calf tenderness; peripheral pulses intact Neuro- alert, oriented x 3; CN 2-12 grossly intact; motor 5/5 bilaterally;sensation 100% on all extremities; no other gross focal neurologic deficits Skin- warm & dry Results & Data Results & Data ([facility]) Vital Signs (Past 12 Hours) Vital Signs Temp Pulse Pulse Resp BP BP Pulse Ox 02/27/21 08:55 68 02/27/21 08:28 36.5 C 67 18 124/56 L 93 02/27/21 07:48 36.4 C L 73 18 156/57 H 97 02/27/21 06:48 36.5 C 67 18 132/67 96 02/27/21 06:18 36.6 C 74 16 129/63 94 02/27/21 06:03 36.5 C 70 18 110/59 L 95 02/27/21 05:48 36.2 C L 65 18 137/64 94 02/27/21 05:41 36.2 C L 67 18 137/64 94 02/27/21 04:40 36.6 C 71 18 123/56 L 92 02/27/21 04:04 36.8 C 69 18 124/66 94 02/27/21 03:04 36.4 C L 67 18 124/60 94 02/27/21 02:34 36.4 C L 67 18 131/66 93 02/27/21 02:19 36.7 C 74 18 112/56 L 94 02/27/21 01:58 36.6 C 67 18 120/59 L 94 02/27/21 01:00 69 02/27/21 00:39 36.6 C 77 20 100/50 L 95 all noted and reviewed including below
[2021-02-27 11:46] LABS: Hematocrit (blood only) 28.9 % (42-52); Hemoglobin 9.7 g/dL (14.0-18.0)
[2021-02-27] MEDS: PIPERACILLIN/TAZOBACTAM 3.375 GM in DEXTROSE 5% 100 ML IV SCH (15:02)
[2021-02-27 17:32] LABS: Hematocrit (blood only) 30.9 % (42-52); Hemoglobin 10.5 g/dL (14.0-18.0)
[2021-02-27] MEDS ORDERED: cefTRIAXone SODIUM 1,000 MG in DEXTROSE 5% 50 ML IV SCH (21:00)
[2021-02-27] MEDS: TERAZOSIN HCL 5 MG CAP PO SCH (21:18)
[2021-02-27] MEDS: ATORVASTATIN 20 MG TAB PO SCH (21:19)
[2021-02-28] MEDS: PIPERACILLIN/TAZOBACTAM 3.375 GM in DEXTROSE 5% 100 ML IV SCH ×4 (00:15→23:11)
[2021-02-28] MEDS: SODIUM CHLORIDE 0.9% 1000ML 1,000 ML IV SCH (00:16)
--- NOTE | 2021-02-28 08:53 | Cardiology Progress Note ---
Date of Service February 28, 2021 Assessment & Plan (1) Severe calcific aortic stenosis: Plan: Patient appears euvolemic currently Has appt in March 2021 with valve clinic to discuss TAVR Unfortunately hematuria needs to be resolved, as he will require antiplatelet therapy for TAVR (2) PAF (paroxysmal atrial fibrillation): Plan: Maintaining NSR Continue amiodarone. QT is prolonged on EKG Will reduce dose to 200 mg BID. Currently taking TID since 02/22. Hold Eliquis due to ongoing hematuria. (3) Anemia: Plan: CBC is pending. Hbg had improved to 10.4 yesterday (4) Hematuria: Plan: Urology has been consulted Plan: continue amiodarone to maintain NSR. Will reduce dose to 200 mg BID for now given prolonged QT. Avoid other QT prolonging agents. Holding anticoagulation and antiplatelet therapy Hematuria needs to be resolved/worked up before patient can consider TAVR He appears euvolemic. He should continue other cardiac medications including metoprolol, furosemide, zetia. Case discussed with Dr. Fields. Will follow Admission and Anticipated Discharge Date Admission Date: February 26, 2021 Supervising Physician Co-Signing Physician Notes I have seen and examined the patient. I reviewed the medical record and discussed the case with Ms. Jesus. I agree with the plan as outlined. Currently the patient is being taken to the OR for a urologic procedure. Hopefully this will improve his hematuria as well as his discomfort. Subjective Patient resting comfortably. Continues to have hematuria. Grande in place. Labs are pending today. He denies symptoms of palpitations, dizziness, recurrent near syncope, CP or SOB. Maintaining NSR on telemetry. Off anticoagulants/antiplatelets. Review of Systems Review of Systems: Review of Systems: See HPI for pertinent positives. All other 10 point review of systems are negative. Physical Exam Physical Exam: General: no acute distress and stated age Head: normocephalic, no masses, lesions, tenderness or abnormalities Eyes: conjunctiva are pink and non-injected, sclera clear Neck: supple, no adenopathy, no bruits, normal jugular venous pulse, no hepatojugular reflux Chest: normal shape and normal respiratory effort Lungs: clear to auscultation and percussion Cardiac Exam: - regular rate & rhythm, systolic murmur left sternal border- normal S1, normal S2 Pulses: 2(+) throughout Abdomen: abdomen soft, non-tender, no abnormal masses and no hepatosplenomegaly Musculoskeletal: no gait disturbance, no joint inflammation, no deforming arthritis Extremities: no edema and no cyanosis Neuro: grossly normal exam Results & Data ([facility]) Vital Signs (Past 12 Hours) Vital Signs Temp Pulse Pulse Resp BP Pulse Ox 02/28/21 07:48 36.6 C 62 18 138/56 L 94 02/28/21 07:28 63 02/28/21 04:40 36.7 C 61 24 137/52 L 97 02/28/21 00:39 62 02/27/21 23:40 37.0 C 65 24 126/57 L 96 Laboratory Results Labs pending from 02/28 at time of visit 02/27/21 02/27/21 02/27/21 Range/Units Unknown 17:23 11:36 WBC (4.8-10.8) K/uL RBC (4.7-6.1) M/uL Hgb 10.5 L 9.7 L (14.0-18.0) g/dL Hct 30.9 L 28.9 L (42-52) % MCV (80-100) fL MCH (25-34) pg MCHC (32-36) g/dL RDW Std Deviation (36.4-46.3) fL RDW Coeff of Ruth (11.5-14.5) % Plt Count (130-400) K/uL MPV (7.4-10.4) fL Neutrophils % (Manual) % Lymphocytes % (Manual) % Monocytes % (Manual) % Eosinophils % (Manual) % Metamyelocytes % (Man) % Myelocytes % (Man) % Neutrophils # (Manual) (1.4-6.5) K/uL Total Absolute Neuts (1.4-6.5) K/uL Lymphocytes # (Manual) (1.2-3.4) K/uL Total Abs Lymphocytes (1.2-3.4) K/uL Monocytes # (Manual) (0.11-0.59) K/uL Eosinophils # (Manual) (0-0.5) K/uL Metamyelocytes # (Man) (0-0) K/uL Myelocytes # (Manual) (0-0) K/uL Toxic Granulation Toxic Vacuolation Polychromasia Sodium (136-145) mmol/L Potassium (3.5-5.1) mmol/L Chloride (98-107) mmol/L Carbon Dioxide (21-32) mmol/L Anion Gap (3-11) BUN (7-18) mg/dl Creatinine (0.6-1.4) mg/dl Est Cr Clr Drug Dosing ml/min Est GFR ( Amer) ml/min Est GFR (Non-Af Amer) ml/min BUN/Creatinine Ratio (10-20) Glucose (70-99) mg/dl Calcium (8.5-10.1) mg/dl Magnesium (1.8-2.4) mg/dl Nasal Screen MRSA (PCR) Negative (Negative) 02/27/21 02/27/21 Range/Units 09:08 09:08 WBC 13.15 H (4.8-10.8) K/uL RBC 3.48 L (4.7-6.1) M/uL Hgb 10.1 L (14.0-18.0) g/dL Hct 30.2 L (42-52) % MCV 86.8 (80-100) fL MCH 29.0 (25-34) pg MCHC 33.4 (32-36) g/dL RDW Std Deviation 47.5 H (36.4-46.3) fL RDW Coeff of Ruth 15.2 H (11.5-14.5) % Plt Count 486 H (130-400) K/uL MPV 8.6 (7.4-10.4) fL Neutrophils % (Manual) 80.0 % Lymphocytes % (Manual) 13.0 % Monocytes % (Manual) 4.3 % Eosinophils % (Manual) 0.9 % Metamyelocytes % (Man) 0.9 % Myelocytes % (Man) 0.9 % Neutrophils # (Manual) 10.52 H (1.4-6.5) K/uL Total Absolute Neuts 10.52 H (1.4-6.5) K/uL Lymphocytes # (Manual) 1.71 (1.2-3.4) K/uL Total Abs Lymphocytes 1.71 (1.2-3.4) K/uL Monocytes # (Manual) 0.57 (0.11-0.59) K/uL Eosinophils # (Manual) 0.12 (0-0.5) K/uL Metamyelocytes # (Man) 0.12 H (0-0) K/uL Myelocytes # (Manual) 0.12 H (0-0) K/uL Toxic Granulation 1+ Toxic Vacuolation 1+ Polychromasia 1+ Sodium 138 (136-145) mmol/L Potassium 3.6 (3.5-5.1) mmol/L Chloride 101 (98-107) mmol/L Carbon Dioxide 28 (21-32) mmol/L Anion Gap 8.0 (3-11) BUN 35 H (7-18) mg/dl Creatinine 1.27 D (0.6-1.4) mg/dl Est Cr Clr Drug Dosing 37.6 ml/min Est GFR ( Amer) 60.6 ml/min Est GFR (Non-Af Amer) 52.3 ml/min BUN/Creatinine Ratio 27.4 H (10-20) Glucose 131 H (70-99) mg/dl Calcium 8.4 L (8.5-10.1) mg/dl Magnesium 2.1 (1.8-2.4) mg/dl Nasal Screen MRSA (PCR) (Negative) Diagnostic Findings Telemetry reviewed: NSR with occ PVC's. No afib. EKG reviewed from 02/27/21: Normal sinus rhythm RSR' or QR pattern in V1 suggests right ventricular conduction delay Prolonged QT at 478/516 ms Abnormal ECG When compared with ECG on 02/[address] abnormality in the Lateral leads is no longer Present Medications Administered Current Inpatient Medications Acetaminophen (Acetaminophen 325 Mg Tab) 650 mg PO Q4H PRN PRN Reason: Pain or Fever Stop: 03/29/21 00:38 Amiodarone HCl (Amiodarone 200 Mg Tab) 200 mg PO TID [facility] Stop: 03/06/21 23:59 Last Admin: 02/27/21 21:18 Dose: 200 mg Documented by: Amiodarone HCl (Amiodarone 200 Mg Tab) 200 mg PO QAM [facility] Stop: 04/06/21 08:59 Ascorbic Acid (Ascorbic Acid 500 Mg Tab) 500 mg PO DAILY [facility] Stop: 03/29/21 08:59 Last Admin: 02/27/21 08:05 Dose: 500 mg Documented by: Atorvastatin Calcium (Atorvastatin 20 Mg Tab) 20 mg PO HS [facility] Stop: 03/29/21 20:59 Last Admin: 02/27/21 21:19 Dose: 20 mg Documented by: Doxycycline Hyclate (Doxycycline Hyclate 100 Mg Cap) 100 mg PO BID [facility] Stop: 03/06/21 00:38 Last Admin: 02/27/21 21:19 Dose: 100 mg Documented by: Ezetimibe (Ezetimibe 10 Mg Tablet) 10 mg PO DAILY LARRY Stop: 03/29/21 08:59 Last Admin: 02/27/21 08:04 Dose: 10 mg Documented by: Epinephrine HCl (Epinephrine Inj 1 Mg/Ml Amp) 0.3 mg IM UD PRN PRN Reason: Allergic Reaction Stop: 03/29/21 00:54 Furosemide (Furosemide 40 Mg Tab) 40 mg PO BID17 [facility] Stop: 03/29/21 08:59 Last Admin: 02/27/21 16:48 Dose: 40 mg Documented by: Gabapentin (Gabapentin 400 Mg Cap) 400 mg PO TID [facility] Stop: 03/29/21 08:59 Last Admin: 02/27/21 21:19 Dose: 400 mg Documented by: Sodium Chloride (Nss 1000ml) 1,000 mls @ 50 mls/hr IV .Q20H [facility] Stop: 03/29/21 00:38 Last Admin: 02/28/21 00:16 Dose: 50 mls/hr Documented by: Sodium Chloride (Nss) 250 mls @ 15 mls/hr IV .[id number] PRN PRN Reason: For Transfusion Stop: 03/29/21 00:38 Piperacillin Sod/Tazobactam (Sod 3.375 gm/ Dextrose) 115 mls @ 28.75 mls/hr IV Q8H [facility]; Protocol Stop: 03/06/21 14:59 Last Admin: 02/28/21 06:25 Dose: 28.8 mls/hr Documented by: Levetiracetam (Levetiracetam 500 Mg Tab) 500 mg PO BID [facility] Stop: 03/29/21 08:59 Last Admin: 02/27/21 21:19 Dose: 500 mg Documented by: Metoprolol Tartrate (Metoprolol Tartrate 50 Mg Tab) 50 mg PO TID [facility] Stop: 03/29/21 08:59 Last Admin: 02/27/21 21:18 Dose: 50 mg Documented by: Miscellaneous Information (Piperacill/Tazobac Consult Active) 1 ea N/A UD PRN PRN Reason: Consult Stop: 03/29/21 08:58 Multivitamins (Multivitamin Tab) 1 tab PO DAILY LARRY Stop: 03/29/21 08:59 Last Admin: 02/27/21 08:05 Dose: 1 tab Documented by: Multivitamins/Minerals (Calcium 600mg + Vit D 400 Iu Tab) 1 tab PO DAILY@1100 LARRY Stop: 03/29/21 10:59 Last Admin: 02/27/21 10:07 Dose: 1 tab Documented by: Ondansetron HCl (Ondansetron Inj 2 Mg/Ml 2 Ml Vial) 4 mg IV Q6H PRN PRN Reason: Nausea Stop: 03/29/21 00:38 Psyllium Hydrophilic Mucilloid (Psyllium 58.6% Powder Packet) 1 pkt PO DAILY PRN PRN Reason: Constipation Stop: 03/29/21 00:59 Sildenafil Citrate (Sildenafil Citrate 20 Mg Tablet) 20 mg PO BID LARRY Stop: 03/29/21 08:59 Last Admin: 02/27/21 21:20 Dose: 20 mg Documented by: Terazosin HCl (Terazosin Hcl 5 Mg Cap) 10 mg PO HS LARRY Stop: 03/29/21 20:59 Last Admin: 02/27/21 21:18 Dose: 10 mg Documented by: Thiamine HCl (Thiamine Hcl 100 Mg Tab) 100 mg PO DAILY LARRY Stop: 03/29/21 08:59 Last Admin: 02/27/21 08:04 Dose: 100 mg Documented by: Vitamin D (Cholecalciferol 1,000 Units 25 Mcg Tab) 2,000 units PO DAILY LARRY Stop: 03/29/21 08:59 Last Admin: 02/27/21 08:04 Dose: 2,000 units Documented by:
[2021-02-28] MEDS: levETIRAcetam 500 MG TAB PO SCH ×2 (09:01→19:54)
[2021-02-28] MEDS: SILDENAFIL CITRATE 20 MG TABLET PO SCH ×2 (09:01→19:59)
[2021-02-28] MEDS: DOXYCYCLINE HYCLATE 100 MG CAP PO SCH ×2 (09:01→19:56)
[2021-02-28] MEDS: GABAPENTIN 400 MG CAP PO SCH ×3 (09:01→19:57)
[2021-02-28] MEDS: METOPROLOL TARTRATE 50 MG TAB PO SCH ×3 (09:01→19:55)
[2021-02-28] MEDS: THIAMINE HCL 100 MG TAB PO SCH (09:02)
[2021-02-28] MEDS: ASCORBIC ACID 500 MG TAB PO SCH (09:02)
[2021-02-28] MEDS: FUROSEMIDE 40 MG TAB PO SCH ×2 (09:02→17:34)
[2021-02-28] MEDS: EZETIMIBE 10 MG TABLET PO SCH (09:02)
[2021-02-28] MEDS: AMIODARONE 200 MG TAB PO SCH ×2 (09:02→19:58)
[2021-02-28] MEDS: MULTIVITAMIN TAB PO SCH (09:02)
--- NOTE | 2021-02-28 09:08 | Urology Progress Note ---
Date of Service February 28, 2021 Assessment & Plan (1) Gross hematuria: Plan: 80yo M with multiple comorbidities admitted with anemia secondary to hematuria - Gross hematuria in the setting of chronic anticoagulation and hx of surgery/radiation for prostate cancer. - Plan of care reviewed with Dr. Turcios, on-call urologist. - Afebrile. - Labs reviewed- Wbc normal, Hgb 9.4 (previously 10.5), Cr. 1.28. - Urine and blood cultures pending, follow cultures. - External catheter in place and draining dark red urine, output appears adequate. - Continue to monitor urine output, bladder scan as needed. - Will obtain CT abdomen pelvis w/wo for further evaluation of gross hematuria. - Keep NPO for now, will make additional recommendations pending CT imaging. - Monitor H&H, transfuse as felt necessary per primary team. - May be beneficial to hold anticoagulation until his hematuria clears, will defer to primary team/cardiology. - Continue supportive care, antibiotics, and close monitoring. - Will continue to follow. - Pt reassessed this afternoon - CT imaging reviewed - Large amount of clot within the bladder; No urinary calculi, hydronephrosis or upper tract urothelial lesion. - Imaging and plan of care reviewed with Dr. Turcios. - Will plan to proceed to OR today for Cystoscopy, clot evacuation, and possible fulguration depending on findings. - Risks and benefits discussed with patient as per consent. Patient states understanding and agrees to proceed. - OR notified. On IV Zosyn. Covid test negative. Chest Xray and EKG in chart. - Keep NPO for procedure today. - Expected clinical course reviewed, all questions were answered. - Updated patient's , Nina, via telephone conversation. - Will continue to follow. ATTENDING NOTE: Independently evaluated, examined, and assessed. Agree with above. 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 Severe bleed. Was on CBI in [place], [facility], but came back after discharge. Needed transfusion. CT today showing large amount of likely blood in bladder and significant distension. Risks and benefits discussed at length for procedure. These include bleeding, infection, injury to surrounding tissues or organs, and risks associated with anesthesia. Patient states understanding and agrees to proceed. Will sign consent and proceed. Plan for Cystoscopy with possible fulguration and clot evacuation. Admission and Anticipated Discharge Date Admission Date: February 26, 2021 Subjective Pt examined at bedside this AM. Awake, resting in bed on arrival. Appears comfortable, no acute distress. Denies any pain or discomfort at present. [place] catheter placed overnight for more accurate I&O. External urinary catheter in place, draining dark red urine, no clots. Urine output overnight - 800ml Denies dysuria. Denies difficulty with urination. Feels he is emptying his bladder. No fevers or chills. Denies nausea or vomiting. Has been NPO. Chart review: Hx of prostate ca s/p surgery and radiation Eliquis/Plavix on hold per primary team Received 2units PRBC on 02/27 Review of Systems Constitutional: as per Subjective / HPI Gastrointestinal: as per Subjective / HPI Genitourinary: + as per Subjective / HPI Physical Exam Constitutional: well developed and well nourished; no acute distress and not ill appearing Respiratory: normal respiratory effort and able to speak in complete sentences; no labored breathing and no audible wheezes Gastrointestinal (Abdomen): Inspection/Auscultation: abdomen normal to inspection; abdomen not distended Percussion/Palpation: abdomen soft; abdomen nontender and no guarding Musculoskeletal: Head/Neck/Chest: normocephalic Skin: No visible rashes or lesions to exposed skin areas Neurologic: awake Psychiatric: Orientation: alert, oriented x 3 and cooperative Genitourinary: no CVA tenderness External catheter in place, draining dark red urine Results & Data ([facility]) Vital Signs (Past 12 Hours) Vital Signs Temp Pulse Pulse Resp BP Pulse Ox 02/28/21 07:48 36.6 C 62 18 138/56 L 94 02/28/21 07:28 63 02/28/21 04:40 36.7 C 61 24 137/52 L 97 02/28/21 00:39 62 02/27/21 23:40 37.0 C 65 24 126/57 L 96 02/27/21 20:43 36.5 C 69 22 120/54 L 96 PG Care Time/CCT Total # of Minutes Spent Total Time Spent with Patient: Total time spent is greater than 50% in coordination of care (as documented) at patient's floor/unit and/or counseling patient: Coding Level of Care Code 11086 Subseq Hosp Care Lvl 2 Diagnoses Gross hematuria R31.0
[2021-02-28] MEDS: CALCIUM 600MG + VIT D 400 IU TAB PO SCH (10:14)
[2021-02-28] MEDS: CHOLECALCIFEROL 1,000 UNITS 25 MCG TAB PO SCH (10:14)
[2021-02-28 10:48] LABS: Hematocrit (blood only) 28.4 % (42-52); Hemoglobin 9.4 g/dL (14.0-18.0); Mean Corpuscular Hemoglobin 28.9 pg (25-34); Mean Corpuscular Hgb Conc 33.1 g/dL (32-36); Mean Corpuscular Volume 87.4 fL (80-100); Mean Platelet Volume 8.4 fL (7.4-10.4); Platelet Count 413 K/uL (130-400); RDW Coefficient of Variation 15.2 % (11.5-14.5); RDW Standard Deviation 48.4 fL (36.4-46.3); Red Blood Count 3.25 M/uL (4.7-6.1); White Blood Count 10.03 K/uL (4.8-10.8)
[2021-02-28 11:03] LABS: BUN Creatinine Ratio 19.4 (10-20); Calcium 8.4 mg/dl (8.5-10.1); Creatinine Clr Calc Pharmacy 37.3 ml/min; Est GFR (Non-African American) 51.8 ml/min; Potassium 2.9 mmol/L (3.5-5.1)
[2021-02-28 11:32] LABS: Basophils # (auto) 0.03 K/uL (0-0.2); Basophils % (auto) 0.3 %; Eosinophils # (auto) 0.24 K/uL (0-0.5); Eosinophils % (auto) 2.4 %; Immature Granulocytes # (auto) 0.82 K/uL (0.00-0.02); Immature Granulocytes % (auto) 8.2 %; Lymphocytes # (auto) 2.03 K/uL (1.2-3.4); Lymphocytes % (auto) 20.2 %; Monocytes # (auto) 0.98 K/uL (0.11-0.59); Monocytes % (auto) 9.8 %; Neutrophils # (auto) 5.93 K/uL (1.4-6.5); Neutrophils % (auto) 59.1 %
[2021-02-28] MEDS ORDERED: OPTIRAY 320 100ml IV ONE (12:15)
--- NOTE | 2021-02-28 13:28 | CT Scan Report ---
CT OF THE ABDOMEN AND PELVIS WITH AND WITHOUT CONTRAST HEMATURIA PROTOCOL CLINICAL HISTORY: Gross hematuria. COMPARISON STUDY: CT of the abdomen and pelvis February 22, 2013. TECHNIQUE: Unenhanced and split bolus phase imaging of the abdomen and pelvis was performed. Intraven ous injection of 95 cc Optiray 320 IV was uneventful. Automated exposure control was utilized for th e study. A dose lowering technique was utilized adhering to the principles of ALARA. CT DOSE: 1084.67 mGy.cm FINDINGS: Left lower lobe consolidation consistent with pneumonia is partially imaged. This was shown on chest CT of February 26, 2021. No pneumatosis, free air or portal venous gas is present. There are no renal, ureteral or bladder calculi. There is no hydronephrosis. No upper tract urothelia l lesions are present. Several right renal cysts measure up to 3.9 cm. There is moderate bilateral re nal cortical thinning. Note is made of extensive clot within the bladder. Evaluation for underlying b ladder mass is suboptimal given partial opacification however no definite bladder lesion is identifie d. Bladder is distended. There is trace gas within the bladder. Prostate is enlarged. No abdominal or pelvic lymphadenopathy is present. The liver, spleen, adrenal glands and pancreas are unremarkable. There is no biliary or pancreatic ductal dilatation. No evidence for a bowel obstructi on. There is a 2.5 cm hyperdense dense focus within the distal sigmoid colon on axial image 272 of 45 6. This may demonstrate enhancement when correlating with precontrast images. This is indeterminate. Bilateral iliac stents are suboptimally assessed on this non-CTA exam. No acute fracture or suspiciou s lesion is identified within the visualized skeletal structures. IMPRESSION: 1. No urinary calculi, hydronephrosis or upper tract urothelial lesion. 2. Large amount of clot within the bladder. Suboptimal evaluation for bladder mass given clot and inc omplete opacification but no discrete lesion identified. Follow-up cystoscopy might be considered. 3. Enlarged prostate. 4. Partially visualized left lower lobe pneumonia. 5. 2.5 cm hyperdense focus within the distal sigmoid colon. This may reflect stool. However, a coloni c lesion could appear similar. Follow-up nonemergent colonoscopy is recommended. ACT 112: Positive. There are findings on this exam that require communication between the performing entity and the patient following Patient Test Result Information Act ([place] Act 112) guidelines. Electronically signed by: Rubén Sterling M.D. 02/28/2021 1:27 PM
[2021-02-28 15:01] LABS: iSTAT Creatinine 1.4 mg/dl (0.6-1.3); iSTAT Hemoglobin 9.5 g/dl (14.0-18.0); iSTAT Ionized Calcium 1.21 mmol/l (1.12-1.32); iSTAT Potassium 3.1 mmol/L (3.3-5.0)
--- NOTE | 2021-02-28 15:06 | Anesthesiology Consultation ---
Date of Service February 28, 2021 Assessment & Plan (1) Encounter for pre-operative examination: Chart Review Chart Review: Acceptable Risk for Surgery (necessary surgery) and Patient NOT seen in Pre Admission Testing Consults Requested none History Surgery Operation Date: 02/28/21 17:30 Proposed Procedures p Cystoscopy, Clot Evacuation, Possible Fulguration - Gibran Turcios, DO Height/Weight Height: 5 ft 4 in Weight: 70.3 kg Allergies Allergy/AdvReac Type Severity Reaction Status Date / Time bee venom protein (honey bee) Allergy Severe ANAPHYLAXIS-YELLOW Verified 02/26/21 19:22 JACKETS lorazepam AdvReac Mild oversedation Verified 02/26/21 19:22 from AWSS protocol Uncoded Nonscreenable Allergy Severe All Uncoded 02/26/21 19:22 Allergen IV's must be administered thru 0.2mic in-line filter Medications Home Medications Medication Instructions Recorded Confirmed Last Taken amoxicillin 500 mg capsule 2,000 mg PO DIRECTED PRN 02/18/21 02/26/21 Unknown ascorbic acid (vitamin C) 500 mg 500 mg PO DAILY 02/18/21 02/26/21 02/26/21 tablet (Vitamin C) atorvastatin 20 mg tablet 20 mg PO HS 02/18/21 02/26/21 02/25/21 calcium carbonate-vitamin D3 600 1 cap PO DAILY 02/18/21 02/26/21 02/26/21 mg calcium-200 unit capsule (Calcium 600 + D(3)) cholecalciferol (vitamin D3) 50 50 mcg PO DAILY 02/18/21 02/26/21 02/26/21 mcg (2,000 unit) capsule (Vitamin D3) clopidogrel 75 mg tablet 75 mg PO DAILY 02/18/21 02/26/21 02/26/21 coQ10 (ubiquinol) 200 mg capsule 200 mg PO DAILY 02/18/21 02/26/21 02/26/21 epinephrine 0.3 mg/0.3 mL 0.3 mg IM DIRECTED PRN 02/18/21 02/26/21 Unknown injection, auto-injector (EpiPen) ezetimibe 10 mg tablet 10 mg PO DAILY 02/18/21 02/26/21 02/26/21 furosemide 40 mg tablet 40 mg PO BID 02/18/21 02/26/21 02/26/21 08:00 gabapentin 400 mg capsule 400 mg PO TID 02/18/21 02/26/21 02/26/21 08:00 levetiracetam 500 mg tablet 500 mg PO BID 02/18/21 02/26/21 02/26/21 08:00 multivitamin 1 tab PO DAILY 02/18/21 02/26/21 02/26/21 psyllium seed (sugar) oral powder 1 tbsp PO DAILY PRN 02/18/21 02/26/21 Unknown (Metamucil (sugar)) sildenafil (pulm.hypertension) 20 20 mg PO BID 02/18/21 02/26/21 02/26/21 08:00 mg tablet terazosin 10 mg capsule 10 mg PO HS 02/18/21 02/26/21 02/25/21 amiodarone 200 mg tablet 200 mg PO TID 02/26/21 02/26/21 02/26/21 08:00 apixaban 5 mg tablet (Eliquis) 5 mg PO BID 02/26/21 02/26/21 02/26/21 08:00 metoprolol tartrate 50 mg tablet 50 mg PO TID 02/26/21 02/26/21 02/26/21 08:00 thiamine HCl (vitamin B1) 100 mg 100 mg PO DAILY 02/26/21 02/26/21 02/26/21 tablet (Vitamin B-1) Active Medications Generic Name Dose Route Start Last Admin Trade Name Freq PRN Reason Stop Dose Admin Ascorbic Acid 500 mg 02/27/21 09:00 02/28/21 09:02 Ascorbic Acid 500 Mg Tab PO 03/29/21 08:59 500 mg DAILY LARRY Administration Atorvastatin Calcium 20 mg 02/27/21 21:00 02/27/21 21:19 Atorvastatin 20 Mg Tab PO 03/29/21 20:59 20 mg HS LARRY Administration Doxycycline Hyclate 100 mg 02/27/21 00:39 02/28/21 09:01 Doxycycline Hyclate 100 Mg Cap PO 03/06/21 00:38 100 mg BID LARRY Administration Ezetimibe 10 mg 02/27/21 09:00 02/28/21 09:02 Ezetimibe 10 Mg Tablet PO 03/29/21 08:59 10 mg DAILY LARRY Administration Furosemide 40 mg 02/27/21 09:00 02/28/21 09:02 Furosemide 40 Mg Tab PO 03/29/21 08:59 40 mg [id number] LARRY Administration Gabapentin 400 mg 02/27/21 09:00 02/28/21 13:12 Gabapentin 400 Mg Cap PO 03/29/21 08:59 400 mg TID LARRY Administration Sodium Chloride 1,000 mls @ 50 mls/hr 02/27/21 00:39 02/28/21 00:16 Nss 1000ml IV 03/29/21 00:38 50 mls/hr .Q20H LARRY Administration Piperacillin Sod/Tazobactam 115 mls @ 28.75 mls/hr 02/27/21 15:00 02/28/21 10:27 Sod 3.375 gm/ Dextrose IV 03/06/21 14:59 Infused Q8H LARRY Infusion Protocol Levetiracetam 500 mg 02/27/21 09:00 02/28/21 09:01 Levetiracetam 500 Mg Tab PO 03/29/21 08:59 500 mg BID LARRY Administration Metoprolol Tartrate 50 mg 02/27/21 09:00 02/28/21 13:12 Metoprolol Tartrate 50 Mg Tab PO 03/29/21 08:59 50 mg TID LARRY Administration Multivitamins 1 tab 02/27/21 09:00 02/28/21 09:02 Multivitamin Tab PO 03/29/21 08:59 1 tab DAILY LARRY Administration Multivitamins/Minerals 1 tab 02/27/21 11:00 02/28/21 10:14 Calcium 600mg + Vit D 400 Iu Tab PO 03/29/21 10:59 1 tab DAILY@1100 LARRY Administration Sildenafil Citrate 20 mg 02/27/21 09:00 02/28/21 09:01 Sildenafil Citrate 20 Mg Tablet PO 03/29/21 08:59 20 mg BID LARRY Administration Terazosin HCl 10 mg 02/27/21 21:00 02/27/21 21:18 Terazosin Hcl 5 Mg Cap PO 03/29/21 20:59 10 mg HS LARRY Administration Thiamine HCl 100 mg 02/27/21 09:00 02/28/21 09:02 Thiamine Hcl 100 Mg Tab PO 03/29/21 08:59 100 mg DAILY LARRY Administration Vitamin D 2,000 units 02/27/21 09:00 02/28/21 10:14 Cholecalciferol 1,000 Units 25 Mcg Tab PO 03/29/21 08:59 2,000 units DAILY LARRY Administration Past Medical History Medical History Anemia Atrial fibrillation, new onset Gout H/O alcohol dependence Hematuria Hypokalemia Hyponatremia Lumbar radiculopathy Orthostasis PAF (paroxysmal atrial fibrillation) Right heart failure due to pulmonary hypertension Severe calcific aortic stenosis Social History Smoking Status: Never smoker tobacco type: cigarettes Hx Alcohol Use: Yes Alcohol type: beer alcohol intake frequency: 3 or more drinks per day Hx Substance Use: No substance use type: does not use Physical Exam Vital Signs Last Vital Signs Temp 36.4 C L 02/28/21 12:57 Pulse 60 02/28/21 12:57 Resp 16 02/28/21 12:57 BP 152/64 H 02/28/21 12:57 Pulse Ox 93 02/28/21 12:57 Testing Laboratory Results 02/28/21 10:33 02/28/21 10:18 PT 11.5 Seconds (9.0-12.0) 02/26/21 19:30 INR 1.1 (0.9-1.1) 02/26/21 19:30 APTT 29.9 Seconds (21.0-31.0) 02/26/21 19:30 Urine Color Red 02/26/21 20:12 Urine Appearance Cloudy (Clear) A 02/26/21 20:12 Urine pH (4.5-7.5) 02/26/21 20:12 Ur Specific [place] 1.019 (1.000-1.030) 02/26/21 20:12 Urine Protein (Negative) 02/26/21 20:12 Urine Glucose (UA) (Negative) 02/26/21 20:12 Urine Ketones (Negative) 02/26/21 20:12 Urine Nitrite (Negative) 02/26/21 20:12 Ur Leukocyte Esterase (Negative) 02/26/21 20:12 Urine RBC >30 /hpf (0-4) H 02/26/21 20:12 Urine WBC 10-30 /hpf (0-5) H 02/26/21 20:12 Ur Epithelial Cells 10-20 /lpf (0-5) H 02/26/21 20:12 Blood Type A Negative 02/26/21 19:30 Antibody Screen NEGATIVE 02/26/21 19:30 02/27/21 09:08 Aerobic Blood Culture - Preliminary Blood No growth in Aerobic bottle after 24 hours. Anaerobic Blood Culture - Preliminary No growth in Anaerobic bottle after 24 hours. 02/27/21 09:15 Aerobic Blood Culture - Preliminary Blood No growth in Aerobic bottle after 24 hours. Anaerobic Blood Culture - Preliminary No growth in Anaerobic bottle after 24 hours. 02/26/21 20:12 Urine Culture - Final Urine,Clean Catch Gram positive cocci Electrocardiogram Date: 02/28/21 Findings: + NSST changes, + SB @ (59) and + RBBB prolong QT Echocardiogram Date: 02/19/21 EF: 55-60 Other Findings: + atrial enlargement (mild dilated L atrium) and + LVH (moderate concentric) Valvular Disease: + (severe) and + MR (mild) severe pulmonary HTN, atrial septal closure device Other Testing CT chest diagnostic wo con CT DOSE: 310.24 mGy.cm HISTORY: bloody sputum TECHNIQUE: Multiaxial CT images of the chest were performed without contrast. A dose lowering technique was utilized adhering to the principles of ALARA. COMPARISON: Chest CTA 11/16/2015. FINDINGS: No pneumothorax. Trace left pleural effusion. There is also trace pericardial effusion. The heart is enlarged. Respiratory motion artifact. Conso lidative airspace opacities within the superior segment of the left lower lobe. This likely represents a pneumonia. Mild interlobular septal thickening, right greater than left consistent with mild asymmetric congestive change/edema. No suspicious lytic or blastic osseous lesions. Calcified plaque within the normal caliber thoracic aorta. An atrial septal defect closure device is noted. Dense mitral annulus calcifications. The visualized liver, spleen, and adrenal glands are unremarkable. Mild pulmonary arterial hypertension, unchanged. No mediastinal lymphadenopathy. There is abrupt cut off within a branch of the left lower lobe superior segmental bronchus best seen on image 138. This could be due to mucoid opacification or an obstructing lesion. Therefore, follow-up bronchoscopy recommended for further evaluation. This could account for the associated left lower lobe consolidative opacities. IMPRESSION: 1. Patchy areas consolidation within the superior segment of the left lower lob e. This likely represents a pneumonia. 2. There is an abrupt cut off within a branch of the left lower lobe superior segmental bronchus. Therefore, this could be due to mucous plugging or an obstructing lesion. Follow-up bronchoscopy recommended for further evaluation. In addition, 2-[address] follow-up recommended to ensure resolution of the left lower lobe airspace opacities. 3. Cardiomegaly with mild asymmetric congestive change/edema and a trace left pleural effusion. ACT 112: Positive. There are findings on this exam that require communication between the performing entity and the patient following Patient Test Result Information Act ([place] Act 112) guidelines. Electronically signed by: Mihir Flores M.D. 02/27/2021 9:18 AM Dictated: 02/27/21911Transcribed: 02/27/21911
[2021-02-28] MEDS: POTASSIUM CHLORIDE / WTR 10 MEQ/100 ML PLCT IV SCH ×2 (15:22→17:33)
[2021-02-28] MEDS ORDERED: fentaNYL citrate 100 MCG/2 ML VIAL ONE (15:24)
[2021-02-28] MEDS ORDERED: LIDOCAINE 2% 2 ML VIAL/AMP(20MG/ML) INFIL ONE (15:24)
[2021-02-28] MEDS ORDERED: PROPOFOL IV EMULSION 10 MG/ML 20 ML VIAL IV ONE ×2 (15:24→16:35)
--- NOTE | 2021-02-28 15:47 | Hospitalist Progress Note ---
Date of Service February 28, 2021 Assessment & Plan (1) Anemia: (2) Hematuria: Plan: ED chills male with history of A. fib on Eliquis, CAD, CHF 35%, right-sided failure, CHF stenosis Prostate CA status post surgery and radiation, hypertension, seizure disorder, alcohol use, etc. NEAR SYNCOPE/WEAKNESS SECONDARY TO ANEMIA, UNDERLYING PNEUMONIA AND UTI MANAGEMENT PER BELOW Anemia secondary to hematuria History of prostate cancer status post surgery and radiation In the setting of Eliquis use Globin 7.9 on admission, after 2 units of packed RBCs, now up to 10.1 Hemoglobin today 9.4 Urology service consulted For cystoscopy today Eliquis on hold Hold Plavix as well ATRIAL FIBRILLATION HISTORY OF CAD, CHF 35% RIGHT-SIDED HEART FAILURE SEVERE AORTIC STENOSIS Rate controlled Continue amiodarone Metoprolol Continue Lasix 40 mg twice a day Eliquis and Plavix held Cardiology consulted POSSIBLE UTI Urine culture gram-positive cocci 9000 units UTI unlikely PNEUMONIA, LEFT LOWER LOBE POSSIBLE HCAP GIVEN RECENT ADMISSION TO THE [facility]OS[facility] IN [facility] Blood cultures pending Sputum culture pending collection MRSA swab negative Respiratory status stable Continue Zosyn plus doxycycline day 2 HYPERTENSION Monitor SEIZURE DISORDER Continue Keppra 500 mg twice a day Alcohol use Smoker DVT prophylaxis SCDs Disposition Pending We will order PT and OT evaluation plan of care discussed with patient in detail and at length all questions answered he is understanding, agreeable, comfortable with the plan of care Admission and Anticipated Discharge Date Admission Date: February 26, 2021 Subjective ff up for anemia, hematuria, etc seen resting in bed, comfortable states he feels fine has mild discomfort at suprapubic region still has gross hematuria no chest pain, dyspnea, palpitations, dizziness no fever/chills, cough no other symptoms Review of Systems Review of Systems: all noted and negative except for above Physical Exam Physical Exam: General- oriented x 3, not in distress, speaks in sentences with no effort or accessory muscle use Eyes- anicteric Neck- no JVD Lungs-mild crackles at the left base clear on the right Heart- normal rate, irregularly irregular rhythm; no murmurs Abdomen- normal bowel sounds, nondistended, soft, nontender Extremities- no pretibial edema, no calf tenderness Neuro- alert, oriented x 3; no gross focal neurologic deficits Skin- warm & dry Results & Data Results & Data ([facility]) Vital Signs (Past 12 Hours) Vital Signs Temp Pulse Pulse Resp BP Pulse Ox 02/28/21 15:00 36.5 C 58 L 18 149/54 H 94 02/28/21 12:57 36.4 C L 60 16 152/64 H 93 02/28/21 07:48 36.6 C 62 18 138/56 L 94 02/28/21 07:28 63 02/28/21 04:40 36.7 C 61 24 137/52 L 97 all noted and reviewed including below
[2021-02-28] MEDS ORDERED: ePHEDrine sulfate 50 MG/ML AMP IV PRN (16:03)
[2021-02-28] MEDS ORDERED: fentaNYL citrate 100 MCG/2 ML VIAL IV PRN (16:03)
[2021-02-28] MEDS ORDERED: PHENYLEPHRINE 100MCG/ML 5ML SYR IV PRN (16:03)
[2021-02-28] MEDS ORDERED: LABETALOL HCL IV 5 MG/ML 20ML IV PRN (16:03)
[2021-02-28] MEDS ORDERED: ATROPINE SULFATE 0.1 MG/ML 10ML SYR IV PRN (16:03)
[2021-02-28] MEDS ORDERED: ONDANSETRON INJ 2 MG/ML 2 ML VIAL IV PRN (16:03)
[2021-02-28] MEDS ORDERED: PHENYLEPHRINE 100MCG/ML 5ML SYR ONE (16:35)
--- NOTE | 2021-02-28 16:37 | Operative Report ---
PG Post Operative Report Pre & Post Diagnosis Operation Date: 02/28/21 17:30 Pre-Op Diagnosis: Gross Hematuria Post-Op Diagnosis: Gross Hematuria I identified the patient and participated in the time-out.: Yes Procedure Operation Date: 02/28/21 17:30 Actual Procedures p Cystoscopy;Urethral Dilation; Clot Evacuation; Extensive Fulguration - Gbiran Turcios DO Surgeon Gibran Turcios, II, DO Emt P None Estimated Blood Loss 10 Findings Consistent with Post-Op Diagnosis Large amount of thick clot. Irrigated. Significant piece of clot material had to be grasped and removed. Multiple bleeding prostatic varicosities. Numerous bleeding lesions of bladder. Large ulcerated lesion on the right trigone/posterior wall. Specimens None Drains 22 Fr Coude Anesthesia Type MAC Complications none Disposition Disposition: Recovery Room Indications Patient with clot retention and hematuria. Risks and benefits discussed at length. Description of Procedure Patient was consented and brought back to the operating room. Patient was placed under anesthesia in the supine position and moved to the dorsal lithotomy position. Patient was prepped and draped in the regular sterile fashion. A time out was completed. A 30degree Cystoscope was placed into the bladder and the entire bladder was examined. The meatus was found to have a significant narrowing. This was sequentially dilated to open the stricture. The bladder was found to have a severe amount of clot. Bleeding was noted in the prostatic urethra especially the anterior 12 o'cock position at the distal prostatic urethra. Multiple bleeding varicosities were noted. A significant amount of irrigating with a tomey syringe was completed. The clot material was able to be largely cleared. The UO's were identified as well as the bladder neck, trigone, dome, and the other important landmarks. A large clot appearing debris was still within the bladder and was difficult to irrigate out. This was grasped and removed in pieces. The bladder had numerous areas of irritated tissue with active minor bleeding. A more significant ulcerated area was noted in the right trigone and posterior wall. The lesions and areas of concern were identified and area/size was assessed. The largest area was the right trigone with an approx area of 6.2 cm. There were 7 additional significant lesions of the dome, lateral, and posterior wall. The resection scope with the fine bipolar loop was selected. The bleeding in the prostatic urethra and the bladder neck was controlled. The most significant area of bleeding was the distal prostatic urethra. This was controlled. Multiple prostatic varicosities at the bladder neck were fulgurated. The entire bladder with lesion was assessed. The lesion and edges of the lesion were fulgurated and the entire area inspected. All bleeding was controlled. The bladder was inspected a final time. A final irrigation was completed. A significant amount of urine was noted to be draining bilaterally. The bladder was emptied. The scope was removed. No major bleeding or pink color to urine was noted. A 22 Fr Coude catheter was placed. The patient was cleaned, aroused from anesthesia, and transferred to the pacu in stable condition having tolerated the procedure well with no complications. I was present and participated in all aspects of the procedure. The patient will be monitored in the PACU until transferred. Plan to maintain catheter for 1-2 weeks to allow bladder time for healing. Followup as outpatient to finalize workup. I attest to the content of the Intraoperative Record and any orders documented therein. Any exceptions are noted below.
--- NOTE | 2021-02-28 17:39 | Anesthesiology Progress Note ---
Date of Service February 28, 2021 Anesthesia Post Procedure Vital Signs Vital Signs: Temp Pulse Pulse Pulse Resp BP Pulse Ox 02/28/21 17:31 36.4 C L 58 L 16 143/43 H 97 02/28/21 17:15 59 L 16 133/77 97 02/28/21 17:05 36.3 C L 57 L 14 141/54 H 96 02/28/21 16:55 56 L 12 133/51 L 97 02/28/21 16:45 55 L 15 116/47 L 96 02/28/21 16:38 37 C 59 L 18 120/46 L 95 02/28/21 15:00 36.5 C 58 L 18 149/54 H 94 02/28/21 12:57 36.4 C L 60 16 152/64 H 93 02/28/21 07:48 36.6 C 62 18 138/56 L 94 02/28/21 07:28 63 02/28/21 04:40 36.7 C 61 24 137/52 L 97 02/28/21 00:39 62 02/27/21 23:40 37.0 C 65 24 126/57 L 96 02/27/21 20:43 36.5 C 69 22 120/54 L 96 Transfer of Care Handoff Completed per policy Notes Mental Status: alert / awake / arousable Patient Amnestic to Procedure: Yes Nausea / Vomiting: adequately controlled Pain: adequately controlled Airway Patency, RR, SpO2: stable & adequate BP & HR: stable & adequate Hydration State: stable & adequate Anesthetic Complications: no major complications apparent and Pt Satisfied with anesthetic care
[2021-02-28] MEDS: TERAZOSIN HCL 5 MG CAP PO SCH (19:55)
[2021-02-28] MEDS: ATORVASTATIN 20 MG TAB PO SCH (19:56)
[2021-03-01] MEDS: PIPERACILLIN/TAZOBACTAM 3.375 GM in DEXTROSE 5% 100 ML IV SCH ×3 (08:06→23:39)
[2021-03-01] MEDS: levETIRAcetam 500 MG TAB PO SCH ×2 (08:09→20:10)
[2021-03-01] MEDS: ASCORBIC ACID 500 MG TAB PO SCH (08:09)
[2021-03-01] MEDS: FUROSEMIDE 40 MG TAB PO SCH ×2 (08:09→16:17)
[2021-03-01] MEDS: SILDENAFIL CITRATE 20 MG TABLET PO SCH ×2 (08:09→20:09)
[2021-03-01] MEDS: AMIODARONE 200 MG TAB PO SCH ×2 (08:09→20:10)
[2021-03-01] MEDS: GABAPENTIN 400 MG CAP PO SCH ×3 (08:09→20:09)
[2021-03-01] MEDS: THIAMINE HCL 100 MG TAB PO SCH (08:10)
[2021-03-01] MEDS: EZETIMIBE 10 MG TABLET PO SCH (08:10)
[2021-03-01] MEDS: DOXYCYCLINE HYCLATE 100 MG CAP PO SCH ×2 (08:10→20:08)
[2021-03-01] MEDS: CHOLECALCIFEROL 1,000 UNITS 25 MCG TAB PO SCH (08:10)
[2021-03-01] MEDS: METOPROLOL TARTRATE 50 MG TAB PO SCH ×3 (08:10→20:10)
[2021-03-01] MEDS: MULTIVITAMIN TAB PO SCH (08:10)
--- NOTE | 2021-03-01 08:27 | Urology Progress Note ---
Date of Service March 01, 2021 Assessment & Plan (1) Hematuria: Plan: 80yo M with multiple comorbidities admitted with anemia secondary to hematuria - POD #1 s/p Cystoscopy, Urethral Dilation, Clot Evacuation, Extensive Fulguration by Dr. Turcios - Patient feeling well, no complaints of pain this morning. - Hematuria has resolved, Grande catheter draining clear, yellow urine at present - He is afebrile - Labs reviewed - Wbc 13.78 today, Hgb 9.4, Creatinine 1.49 - Continue to trend - UCx with gram positive cocci; Blood cultures no growth after 48 hours - Continue supportive care, antibiotics, and close monitoring. - Anticoagulants per primary team/cardiology. - Continue Grande catheter - Plan to maintain catheter for 1-2 weeks to allow the bladder time for healing. - Will arrange outpatient follow-up with urology for voiding trial and to finalize workup. - will sign-off now, please reconsult us with additional questions, concerns or changes in patient status. Admission and Anticipated Discharge Date Admission Date: February 26, 2021 Subjective Pt examined at bedside this AM. Awake, resting in bed on arrival. Appears comfortable, no acute distress. He denies any pain or discomfort at present. He is tolerating the catheter well. Catheter intact/patent, draining clear, yellow urine. Denies dysuria. No fevers or chills. Denies nausea or vomiting. Review of Systems Constitutional: as per Subjective / HPI Gastrointestinal: as per Subjective / HPI Genitourinary: + as per Subjective / HPI Physical Exam Constitutional: well developed and well nourished; no acute distress and not ill appearing Respiratory: normal respiratory effort and able to speak in complete sentences; no labored breathing and no audible wheezes Gastrointestinal (Abdomen): Inspection/Auscultation: abdomen normal to inspection; abdomen not distended Percussion/Palpation: abdomen soft; abdomen nontender and no guarding Musculoskeletal: Head/Neck/Chest: normocephalic Skin: No visible rashes or lesions to exposed skin areas Neurologic: awake Psychiatric: Orientation: alert, oriented x 3 and cooperative Genitourinary: no CVA tenderness Grande catheter intact/patent, draining clear, yellow urine Results & Data ([facility]) Vital Signs (Past 12 Hours) Vital Signs Temp Pulse Pulse Resp BP BP Pulse Ox 03/01/21 07:58 36.8 C 67 16 127/50 L 92 03/01/21 07:22 66 03/01/21 03:00 36.5 C 63 18 113/57 L 91 02/28/21 23:07 36.5 C 62 16 111/66 93 02/28/21 23:00 61 PG Care Time/CCT Total # of Minutes Spent Total Time Spent with Patient: Total time spent is greater than 50% in coordination of care (as documented) at patient's floor/unit and/or counseling patient: Coding Level of Care Code 17258 Subseq Hosp Care Lvl 2 Diagnoses Hematuria R31.9
[2021-03-01 09:25] LABS: Hematocrit (blood only) 28.4 % (42-52); Hemoglobin 9.4 g/dL (14.0-18.0); Mean Corpuscular Hemoglobin 29.3 pg (25-34); Mean Corpuscular Hgb Conc 33.1 g/dL (32-36); Mean Corpuscular Volume 88.5 fL (80-100); Mean Platelet Volume 8.4 fL (7.4-10.4); Platelet Count 393 K/uL (130-400); RDW Coefficient of Variation 15.7 % (11.5-14.5); RDW Standard Deviation 50.4 fL (36.4-46.3); Red Blood Count 3.21 M/uL (4.7-6.1); White Blood Count 13.78 K/uL (4.8-10.8)
[2021-03-01 09:43] LABS: BUN Creatinine Ratio 13.7 (10-20); Calcium 8.4 mg/dl (8.5-10.1); Creatinine Clr Calc Pharmacy 35.9 ml/min; Est GFR (African American) 49.9 ml/min; Est GFR (Non-African American) 43.1 ml/min; Potassium 3.3 mmol/L (3.5-5.1)
--- NOTE | 2021-03-01 10:21 | Cardiology Progress Note ---
Date of Service March 01, 2021 Assessment & Plan (1) Severe calcific aortic stenosis: Plan: Patient appears euvolemic currently Has appt in March 2021 with valve clinic to discuss TAVR Unfortunately hematuria needs to be resolved, as he will require antiplatelet therapy for TAVR (2) PAF (paroxysmal atrial fibrillation): Plan: Maintaining NSR Continue amiodarone. QT is prolonged on EKG Dose reduced to 200 mg BID. Currently taking TID since 02/22. Will update EKG tomorrow AM. Eliquis on hold. (3) Anemia: Plan: CBC stable from yesterday at 9.4 (4) Hematuria: Plan: Improving post cystoscopy and procedure yesterday Plan: continue amiodarone to maintain NSR. Will reduce dose to 200 mg BID for now given prolonged QT. Avoid other QT prolonging agents. Holding anticoagulation and antiplatelet therapy Given his extensive history of PVD and stents, would likely benefit from at least ASA 81 mg therapy as hematuria improves. Was previously on plavix and Eliquis. As long as he is on amio and maintaining NSR, will hold Eliquis. Hematuria needs to be resolved/worked up before patient can consider TAVR He appears euvolemic. He should continue other cardiac medications including metoprolol, furosemide, zetia. Case discussed with Dr. Powell. Will follow Admission and Anticipated Discharge Date Admission Date: February 26, 2021 Supervising Physician Co-Signing Physician Notes Patient seen and examined with Key Jesus PA-C. Agree with findings and assessment as above. Pt with continued hematuria. Would highly recommend restarting at least aspirin therapy as soon as feasible to maintain stent patency. Subjective Patient resting in bed comfortably. Tolerated cystoscopy yesterday. Grande remains in place. No gross hematuria noted today. Patient denies abdominal pain. No chest pain or SOB. No orthopnea, PND or edema. No sense of palpitations or tachypalpitations. Review of Systems Review of Systems: Review of Systems: See HPI for pertinent positives. All other 10 point review of systems are negative. Physical Exam Physical Exam: General: no acute distress and stated age Head: normocephalic, no masses, lesions, tenderness or abnormalities Eyes: conjunctiva are pink and non-injected, sclera clear Neck: supple, no adenopathy, no bruits, normal jugular venous pulse, no hepatojugular reflux Chest: normal shape and normal respiratory effort Lungs: clear to auscultation and percussion Cardiac Exam: - regular rate & rhythm, systolic murmur left sternal border- normal S1, normal S2 Pulses: 2(+) throughout Abdomen: abdomen soft, non-tender, no abnormal masses and no hepatosplenomegaly Musculoskeletal: no gait disturbance, no joint inflammation, no deforming arthritis Extremities: no edema and no cyanosis Neuro: grossly normal exam Results & Data ([facility]) Vital Signs (Past 12 Hours) Vital Signs Temp Pulse Pulse Resp BP BP Pulse Ox 03/01/21 07:58 36.8 C 67 16 127/50 L 92 03/01/21 07:22 66 03/01/21 03:00 36.5 C 63 18 113/57 L 91 02/28/21 23:07 36.5 C 62 16 111/66 93 02/28/21 23:00 61 Laboratory Results 03/01/21 03/01/21 02/28/21 Range/Units 09:12 09:12 23:45 WBC 13.78 H (4.8-10.8) K/uL RBC 3.21 L (4.7-6.1) M/uL Hgb 9.4 L (14.0-18.0) g/dL POC Hgb (14.0-18.0) g/dl Hct 28.4 L (42-52) % POC Hct (42-52) % MCV 88.5 (80-100) fL MCH 29.3 (25-34) pg MCHC 33.1 (32-36) g/dL RDW Std Deviation 50.4 H (36.4-46.3) fL RDW Coeff of Ruth 15.7 H (11.5-14.5) % Plt Count 393 (130-400) K/uL MPV 8.4 (7.4-10.4) fL Immature Gran % (Auto) % Neut % (Auto) % Lymph % (Auto) % Meagher % (Auto) % Eos % (Auto) % Baso % (Auto) % Neut # (Auto) (1.4-6.5) K/uL Lymph # (Auto) (1.2-3.4) K/uL Meagher # (Auto) (0.11-0.59) K/uL Eos # (Auto) (0-0.5) K/uL Baso # (Auto) (0-0.2) K/uL Immature Gran # (Auto) (0.00-0.02) K/uL POC Sodium (135-144) mmol/L Sodium 136 (136-145) mmol/L POC Potassium (3.3-5.0) mmol/L Potassium 3.3 L (3.5-5.1) mmol/L POC Chloride (101-112) mmol/L Chloride 101 (98-107) mmol/L Carbon Dioxide 29 (21-32) mmol/L POC Total CO2 (24-31) mmol/L Anion Gap 6.0 (3-11) POC Anion Gap (16-25) mmol/L POC BUN (7-18) mg/dl BUN 20 H (7-18) mg/dl Creatinine 1.49 H (0.6-1.4) mg/dl POC Creatinine (0.6-1.3) mg/dl Est Cr Clr Drug Dosing 35.9 ml/min Est GFR ( Amer) 49.9 ml/min Est GFR (Non-Af Amer) 43.1 ml/min BUN/Creatinine Ratio 13.7 (10-20) Glucose 216 H (70-99) mg/dl POC Glucose (other) (70-99) mg/dl Calcium 8.4 L (8.5-10.1) mg/dl POC Ioniz Calcium Kemi (1.12-1.32) mmol/l Stl C. diff Tox B Gene Negative Cdiff Gene (Neg) 02/28/21 02/28/21 02/28/21 Range/Units 14:34 10:33 10:18 WBC 10.03 (4.8-10.8) K/uL RBC 3.25 L (4.7-6.1) M/uL Hgb 9.4 L (14.0-18.0) g/dL POC Hgb 9.5 L (14.0-18.0) g/dl Hct 28.4 L (42-52) % POC Hct 28 L (42-52) % MCV 87.4 (80-100) fL MCH 28.9 (25-34) pg MCHC 33.1 (32-36) g/dL RDW Std Deviation 48.4 H (36.4-46.3) fL RDW Coeff of Ruth 15.2 H (11.5-14.5) % Plt Count 413 H (130-400) K/uL MPV 8.4 (7.4-10.4) fL Immature Gran % (Auto) 8.2 % Neut % (Auto) 59.1 % Lymph % (Auto) 20.2 % Meagher % (Auto) 9.8 % Eos % (Auto) 2.4 % Baso % (Auto) 0.3 % Neut # (Auto) 5.93 (1.4-6.5) K/uL Lymph # (Auto) 2.03 (1.2-3.4) K/uL Meagher # (Auto) 0.98 H (0.11-0.59) K/uL Eos # (Auto) 0.24 (0-0.5) K/uL Baso # (Auto) 0.03 (0-0.2) K/uL Immature Gran # (Auto) 0.82 H (0.00-0.02) K/uL POC Sodium 139 (135-144) mmol/L Sodium 136 (136-145) mmol/L POC Potassium 3.1 L (3.3-5.0) mmol/L Potassium 2.9 L D (3.5-5.1) mmol/L POC Chloride 95 L (101-112) mmol/L Chloride 103 (98-107) mmol/L Carbon Dioxide 31 (21-32) mmol/L POC Total CO2 28 (24-31) mmol/L Anion Gap 2.0 L (3-11) POC Anion Gap 20.0 (16-25) mmol/L POC BUN 20 H (7-18) mg/dl BUN 25 H (7-18) mg/dl Creatinine 1.28 (0.6-1.4) mg/dl POC Creatinine 1.4 H (0.6-1.3) mg/dl Est Cr Clr Drug Dosing 37.3 ml/min Est GFR ( Amer) 60.0 ml/min Est GFR (Non-Af Amer) 51.8 ml/min BUN/Creatinine Ratio 19.4 (10-20) Glucose 137 H (70-99) mg/dl POC Glucose (other) 126 H (70-99) mg/dl Calcium 8.4 L (8.5-10.1) mg/dl POC Ioniz Calcium Kemi 1.21 (1.12-1.32) mmol/l Stl C. diff Tox B Gene (Neg) Diagnostic Findings Telemetry reviewed: NSR with occ PVC Medications Administered Current Inpatient Medications Acetaminophen (Acetaminophen 325 Mg Tab) 650 mg PO Q4H PRN PRN Reason: Pain or Fever Stop: 03/29/21 00:38 Amiodarone HCl (Amiodarone 200 Mg Tab) 200 mg PO QAM [facility] Stop: 04/06/21 08:59 Amiodarone HCl (Amiodarone 200 Mg Tab) 200 mg PO BID [facility] Stop: 03/06/21 23:59 Last Admin: 03/01/21 08:09 Dose: 200 mg Documented by: Ascorbic Acid (Ascorbic Acid 500 Mg Tab) 500 mg PO DAILY [facility] Stop: 03/29/21 08:59 Last Admin: 03/01/21 08:09 Dose: 500 mg Documented by: Atorvastatin Calcium (Atorvastatin 20 Mg Tab) 20 mg PO HS [facility] Stop: 03/29/21 20:59 Last Admin: 02/28/21 19:56 Dose: 20 mg Documented by: Doxycycline Hyclate (Doxycycline Hyclate 100 Mg Cap) 100 mg PO BID [facility] Stop: 03/06/21 00:38 Last Admin: 03/01/21 08:10 Dose: 100 mg Documented by: Ezetimibe (Ezetimibe 10 Mg Tablet) 10 mg PO DAILY [facility] Stop: 03/29/21 08:59 Last Admin: 03/01/21 08:10 Dose: 10 mg Documented by: Epinephrine HCl (Epinephrine Inj 1 Mg/Ml Amp) 0.3 mg IM UD PRN PRN Reason: Allergic Reaction Stop: 03/29/21 00:54 Furosemide (Furosemide 40 Mg Tab) 40 mg PO BID17 [facility] Stop: 03/29/21 08:59 Last Admin: 03/01/21 08:09 Dose: 40 mg Documented by: Gabapentin (Gabapentin 400 Mg Cap) 400 mg PO TID [facility] Stop: 03/29/21 08:59 Last Admin: 03/01/21 08:09 Dose: 400 mg Documented by: Piperacillin Sod/Tazobactam (Sod 3.375 gm/ Dextrose) 115 mls @ 28.75 mls/hr IV Q8H [facility]; Protocol Stop: 03/06/21 14:59 Last Admin: 03/01/21 08:06 Dose: 28.8 mls/hr Documented by: Levetiracetam (Levetiracetam 500 Mg Tab) 500 mg PO BID [facility] Stop: 03/29/21 08:59 Last Admin: 03/01/21 08:09 Dose: 500 mg Documented by: Metoprolol Tartrate (Metoprolol Tartrate 50 Mg Tab) 50 mg PO TID [facility] Stop: 03/29/21 08:59 Last Admin: 03/01/21 08:10 Dose: 50 mg Documented by: Miscellaneous Information (Piperacill/Tazobac Consult Active) 1 ea N/A UD PRN PRN Reason: Consult Stop: 03/29/21 08:58 Multivitamins (Multivitamin Tab) 1 tab PO DAILY [facility] Stop: 03/29/21 08:59 Last Admin: 03/01/21 08:10 Dose: 1 tab Documented by: Multivitamins/Minerals (Calcium 600mg + Vit D 400 Iu Tab) 1 tab PO DAILY@1100 [facility] Stop: 03/29/21 10:59 Last Admin: 02/28/21 10:14 Dose: 1 tab Documented by: Ondansetron HCl (Ondansetron Inj 2 Mg/Ml 2 Ml Vial) 4 mg IV Q6H PRN PRN Reason: Nausea Stop: 03/29/21 00:38 Potassium Chloride (Potassium Chloride Crtab 20 Meq Tabcr) 20 meq PO QAM [facility] Stop: 03/31/21 10:29 Psyllium Hydrophilic Mucilloid (Psyllium 58.6% Powder Packet) 1 pkt PO DAILY PRN PRN Reason: Constipation Stop: 03/29/21 00:59 Sildenafil Citrate (Sildenafil Citrate 20 Mg Tablet) 20 mg PO BID [facility] Stop: 03/29/21 08:59 Last Admin: 03/01/21 08:09 Dose: 20 mg Documented by: Terazosin HCl (Terazosin Hcl 5 Mg Cap) 10 mg PO HS [facility] Stop: 03/29/21 20:59 Last Admin: 02/28/21 19:55 Dose: 10 mg Documented by: Thiamine HCl (Thiamine Hcl 100 Mg Tab) 100 mg PO DAILY [facility] Stop: 03/29/21 08:59 Last Admin: 03/01/21 08:10 Dose: 100 mg Documented by: Vitamin D (Cholecalciferol 1,000 Units 25 Mcg Tab) 2,000 units PO DAILY [facility] Stop: 03/29/21 08:59 Last Admin: 03/01/21 08:10 Dose: 2,000 units Documented by:
[2021-03-01] MEDS: POTASSIUM CHLORIDE CRTAB 20 MEQ TABCR PO SCH (11:46)
[2021-03-01] MEDS: CALCIUM 600MG + VIT D 400 IU TAB PO SCH (11:46)
--- NOTE | 2021-03-01 15:11 | Electrocardiogram Report ---
Test Reason : Blood Pressure : / mmHG Vent. Rate : 059 BPM Atrial Rate : 059 BPM P-R Int : 174 ms QRS Dur : 102 ms QT Int : 518 ms P-R-T Axes : 046 -07 037 degrees QTc Int : 512 ms Sinus bradycardia Incomplete right bundle branch block Nonspecific ST abnormality Prolonged QT Abnormal ECG When compared with ECG of 27-FEB-2021 06:30, No significant change was found Confirmed by Johnathan Horan ([id number]) on 03/01/2021 3:11:19 PM Referred By: REFERRED SELF Confirmed By:Johnathan Horan
--- NOTE | 2021-03-01 19:55 | Hospitalist Progress Note ---
Date of Service March 01, 2021 Assessment & Plan (1) Anemia: (2) Hematuria: Plan: ED chills male with history of A. fib on Eliquis, CAD, CHF 35%, right-sided failure, CHF stenosis Prostate CA status post surgery and radiation, hypertension, seizure disorder, alcohol use, etc. NEAR SYNCOPE/WEAKNESS SECONDARY TO ANEMIA, UNDERLYING PNEUMONIA AND UTI MANAGEMENT PER BELOW Anemia secondary to hematuria History of prostate cancer status post surgery and radiation In the setting of Eliquis use HGlobin 7.9 on admission, after 2 units of packed RBCs, improved to 10.1 Urology service consulted 02/28: Cystoscopy;Urethral Dilation; Clot Evacuation; Extensive Fulguration - Gibran Turcios, DO Grande cath in place- maintain for now as per Urology ff up with Urology as outpatient Hg stable at 9.4 Eliquis on hold Hold Plavix as well ATRIAL FIBRILLATION HISTORY OF CAD, CHF 35% RIGHT-SIDED HEART FAILURE SEVERE AORTIC STENOSIS Rate controlled Continue amiodarone- reduced dose for prolonged QT Metoprolol Continue Lasix 40 mg twice a day Eliquis and Plavix held Cardiology consulted recommend at least Aspirin 81mg as hematuria improves As long as he is on amio and maintaining NSR, will hold Eliquis. Hematuria needs to be resolved/worked up before patient can consider TAVR UTI Urine culture gram-positive cocci 9000 units no sensitivities to follow on Zosyn PNEUMONIA, LEFT LOWER LOBE POSSIBLE HCAP GIVEN RECENT ADMISSION TO THE HOSPITAL IN [facility] Blood cultures pending Sputum culture pending collection MRSA swab negative Respiratory status stable Continue Zosyn plus doxycycline day 2 HYPERTENSION Monitor SEIZURE DISORDER Continue Keppra 500 mg twice a day Alcohol use Smoker DVT prophylaxis SCDs Disposition Pending PT and OT evaluation plan of care discussed with patient in detail and at length all questions answered he is understanding, agreeable, comfortable with the plan of care Admission and Anticipated Discharge Date Admission Date: February 26, 2021 Subjective ff up for hematuria, anemia, etc seen resting in bed, comfortable states he feels better today s/p Cystoscopy;Urethral Dilation; Clot Evacuation; Extensive Fulguration yesterday Grande also placed by Urology, now draining yellow urine no chest pain, dyspnea, palpitations, dizziness no abdominal pain, bladder pain no other symptoms Review of Systems Review of Systems: all noted and negative except for above Physical Exam Physical Exam: General- oriented x 3, not in distress, speaks in sentences with no effort or accessory muscle use Eyes- anicteric Neck- no JVD Lungs- clear breath sounds bilaterally, no rales/wheezes Heart- normal rate, regular rhythm; no murmurs Abdomen- normal bowel sounds, nondistended, soft, nontender Extremities- no pretibial edema, no calf tenderness Neuro- alert, oriented x 3; no gross focal neurologic deficits Skin- warm & dry Results & Data Results & Data ([facility]) Vital Signs (Past 12 Hours) Vital Signs Temp Pulse Pulse Resp BP BP Pulse Ox 03/01/21 19:38 36.7 C 71 22 92/40 L 92 03/01/21 16:16 36.6 C 72 18 102/48 L 93 03/01/21 15:33 67 03/01/21 11:47 36.5 C 58 L 18 108/49 L 95 03/01/21 07:58 36.8 C 67 16 127/50 L 92 all noted and reviewed including below
[2021-03-01] MEDS: ATORVASTATIN 20 MG TAB PO SCH (20:08)
[2021-03-01] MEDS: TERAZOSIN HCL 5 MG CAP PO SCH (20:09)
[2021-03-02] MEDS: PIPERACILLIN/TAZOBACTAM 3.375 GM in DEXTROSE 5% 100 ML IV SCH (07:29)
[2021-03-02 09:04] LABS: Hematocrit (blood only) 30.3 % (42-52); Hemoglobin 9.8 g/dL (14.0-18.0); Mean Corpuscular Hemoglobin 28.9 pg (25-34); Mean Corpuscular Hgb Conc 32.3 g/dL (32-36); Mean Corpuscular Volume 89.4 fL (80-100); Mean Platelet Volume 8.5 fL (7.4-10.4); Platelet Count 386 K/uL (130-400); RDW Coefficient of Variation 15.8 % (11.5-14.5); RDW Standard Deviation 50.8 fL (36.4-46.3); Red Blood Count 3.39 M/uL (4.7-6.1); White Blood Count 11.02 K/uL (4.8-10.8)
[2021-03-02] MEDS: EZETIMIBE 10 MG TABLET PO SCH (09:09)
[2021-03-02] MEDS: CHOLECALCIFEROL 1,000 UNITS 25 MCG TAB PO SCH (09:09)
[2021-03-02] MEDS: POTASSIUM CHLORIDE CRTAB 20 MEQ TABCR PO SCH (09:09)
[2021-03-02] MEDS: CALCIUM 600MG + VIT D 400 IU TAB PO SCH (09:09)
[2021-03-02] MEDS: MULTIVITAMIN TAB PO SCH (09:09)
[2021-03-02] MEDS: DOXYCYCLINE HYCLATE 100 MG CAP PO SCH ×2 (09:09→20:24)
[2021-03-02] MEDS: ASCORBIC ACID 500 MG TAB PO SCH (09:09)
[2021-03-02] MEDS: METOPROLOL TARTRATE 50 MG TAB PO SCH ×3 (09:10→20:21)
[2021-03-02] MEDS: THIAMINE HCL 100 MG TAB PO SCH (09:10)
[2021-03-02] MEDS: FUROSEMIDE 40 MG TAB PO SCH ×2 (09:10→17:43)
[2021-03-02] MEDS: AMIODARONE 200 MG TAB PO SCH ×2 (09:10→20:22)
[2021-03-02] MEDS: GABAPENTIN 400 MG CAP PO SCH ×3 (09:10→20:23)
[2021-03-02] MEDS: levETIRAcetam 500 MG TAB PO SCH ×2 (09:10→20:21)
[2021-03-02] MEDS: SILDENAFIL CITRATE 20 MG TABLET PO SCH ×2 (09:10→20:24)
[2021-03-02 09:26] LABS: BUN Creatinine Ratio 13.4 (10-20); Calcium 8.6 mg/dl (8.5-10.1); Creatinine Clr Calc Pharmacy 31.8 ml/min; Est GFR (African American) 44.8 ml/min; Est GFR (Non-African American) 38.7 ml/min; Potassium 3.5 mmol/L (3.5-5.1)
--- NOTE | 2021-03-02 09:58 | Cardiology Progress Note ---
Date of Service March 02, 2021 Assessment & Plan (1) Severe calcific aortic stenosis: Plan: Patient appears euvolemic currently Has appt in March 2021 with valve clinic to discuss TAVR Unfortunately hematuria needs to be resolved, as he will require antiplatelet therapy for TAVR (2) PAF (paroxysmal atrial fibrillation): Plan: Maintaining NSR Continue amiodarone 200 mg BID. Reduce to 200 mg daily on 03/07 Eliquis on hold due to hematuria (3) Anemia: Plan: CBC stable from yesterday at 9.8 (4) Hematuria: Plan: Improving post cystoscopy Plan: continue amiodarone to maintain NSR. Dose reduced to 200 mg BID during admission, and further reduction to 200 mg daily on 03/07. Holding anticoagulation and antiplatelet therapy for hematuria. Now that hematuria has improved, and Hbg stable, he at least needs to resume ASA 81 mg daily due to extensive history of PVD and vascular stents. Was previously on Plavix and Eliquis. Will continue to hold. Hematuria needs to be resolved before patient can consider TAVR He appears euvolemic. He should continue other cardiac medications including metoprolol, furosemide, Zetia. Case discussed with Dr. Powell. Stable for discharge from cardiac perspective with above recommendations. He has f/u already scheduled on 03/10 with ALICIA Morse at [facility] and will keep this appt. Admission and Anticipated Discharge Date Admission Date: February 26, 2021 Supervising Physician Co-Signing Physician Notes Patient seen and examined with Key Jesus PA-C. Agree with findings and assessment as above. Aspirin restarted, tolerating. Cont amio. Subjective Patient feeling well this morning. Hematuria improved. Denies chest pain or SOB. No orthopnea, PND or edema. No palpitations. Review of Systems Review of Systems: Review of Systems: See HPI for pertinent positives. All other 10 point review of systems are negative. Physical Exam Physical Exam: General: no acute distress and stated age Head: normocephalic, no masses, lesions, tenderness or abnormalities Eyes: conjunctiva are pink and non-injected, sclera clear Neck: supple, no adenopathy, no bruits, normal jugular venous pulse, no hepatojugular reflux Chest: normal shape and normal respiratory effort Lungs: clear to auscultation and percussion Cardiac Exam: - regular rate & rhythm, systolic murmur left sternal border- normal S1, normal S2 Pulses: 2(+) throughout Abdomen: abdomen soft, non-tender, no abnormal masses and no hepatosplenomegaly Musculoskeletal: no gait disturbance, no joint inflammation, no deforming arthritis Extremities: no edema and no cyanosis Neuro: grossly normal exam Results & Data ([facility]) Vital Signs (Past 12 Hours) Vital Signs Temp Pulse Pulse Resp BP BP Pulse Ox 03/02/21 08:00 37.0 C 66 18 118/69 96 03/02/21 03:29 37.1 C 65 16 125/57 L 93 03/01/21 23:32 36.7 C 67 16 110/56 L 95 03/01/21 23:00 62 Laboratory Results 03/02/21 03/02/21 Range/Units 08:46 08:46 WBC 11.02 H (4.8-10.8) K/uL RBC 3.39 L (4.7-6.1) M/uL Hgb 9.8 L (14.0-18.0) g/dL Hct 30.3 L (42-52) % MCV 89.4 (80-100) fL MCH 28.9 (25-34) pg MCHC 32.3 (32-36) g/dL RDW Std Deviation 50.8 H (36.4-46.3) fL RDW Coeff of Ruth 15.8 H (11.5-14.5) % Plt Count 386 (130-400) K/uL MPV 8.5 (7.4-10.4) fL Sodium 138 (136-145) mmol/L Potassium 3.5 (3.5-5.1) mmol/L Chloride 102 (98-107) mmol/L Carbon Dioxide 31 (21-32) mmol/L Anion Gap 6.0 (3-11) BUN 22 H (7-18) mg/dl Creatinine 1.63 H (0.6-1.4) mg/dl Est Cr Clr Drug Dosing 31.8 ml/min Est GFR ( Amer) 44.8 ml/min Est GFR (Non-Af Amer) 38.7 ml/min BUN/Creatinine Ratio 13.4 (10-20) Glucose 182 H (70-99) mg/dl Calcium 8.6 (8.5-10.1) mg/dl Diagnostic Findings Telemetry reviewed - NSR in the 60-80's with occ PVC's Medications Administered Current Inpatient Medications Acetaminophen (Acetaminophen 325 Mg Tab) 650 mg PO Q4H PRN PRN Reason: Pain or Fever Stop: 03/29/21 00:38 Last Admin: 03/01/21 16:19 Dose: 650 mg Documented by: Amiodarone HCl (Amiodarone 200 Mg Tab) 200 mg PO QAM [facility] Stop: 04/06/21 08:59 Amiodarone HCl (Amiodarone 200 Mg Tab) 200 mg PO BID [facility] Stop: 03/06/21 23:59 Last Admin: 03/02/21 09:10 Dose: 200 mg Documented by: Ascorbic Acid (Ascorbic Acid 500 Mg Tab) 500 mg PO DAILY [facility] Stop: 03/29/21 08:59 Last Admin: 03/02/21 09:09 Dose: 500 mg Documented by: Aspirin (Aspirin 81 Mg Ectab) 81 mg PO QAM [facility] Stop: 04/01/21 09:59 Atorvastatin Calcium (Atorvastatin 20 Mg Tab) 20 mg PO HS [facility] Stop: 03/29/21 20:59 Last Admin: 03/01/21 20:08 Dose: 20 mg Documented by: Doxycycline Hyclate (Doxycycline Hyclate 100 Mg Cap) 100 mg PO BID [facility] Stop: 03/06/21 00:38 Last Admin: 03/02/21 09:09 Dose: 100 mg Documented by: Ezetimibe (Ezetimibe 10 Mg Tablet) 10 mg PO DAILY [facility] Stop: 03/29/21 08:59 Last Admin: 03/02/21 09:09 Dose: 10 mg Documented by: Epinephrine HCl (Epinephrine Inj 1 Mg/Ml Amp) 0.3 mg IM UD PRN PRN Reason: Allergic Reaction Stop: 03/29/21 00:54 Furosemide (Furosemide 40 Mg Tab) 40 mg PO BID17 [facility] Stop: 03/29/21 08:59 Last Admin: 03/02/21 09:10 Dose: 40 mg Documented by: Gabapentin (Gabapentin 400 Mg Cap) 400 mg PO TID [facility] Stop: 03/29/21 08:59 Last Admin: 03/02/21 09:10 Dose: 400 mg Documented by: Piperacillin Sod/Tazobactam (Sod 3.375 gm/ Dextrose) 115 mls @ 28.75 mls/hr IV Q8H [facility]; Protocol Stop: 03/06/21 14:59 Last Admin: 03/02/21 07:29 Dose: 28.8 mls/hr Documented by: Levetiracetam (Levetiracetam 500 Mg Tab) 500 mg PO BID [facility] Stop: 03/29/21 08:59 Last Admin: 03/02/21 09:10 Dose: 500 mg Documented by: Metoprolol Tartrate (Metoprolol Tartrate 50 Mg Tab) 50 mg PO TID [facility] Stop: 03/29/21 08:59 Last Admin: 03/02/21 09:10 Dose: 50 mg Documented by: Miscellaneous Information (Piperacill/Tazobac Consult Active) 1 ea N/A UD PRN PRN Reason: Consult Stop: 03/29/21 08:58 Multivitamins (Multivitamin Tab) 1 tab PO DAILY [facility] Stop: 03/29/21 08:59 Last Admin: 03/02/21 09:09 Dose: 1 tab Documented by: Multivitamins/Minerals (Calcium 600mg + Vit D 400 Iu Tab) 1 tab PO DAILY@1100 [facility] Stop: 03/29/21 10:59 Last Admin: 03/02/21 09:09 Dose: 1 tab Documented by: Ondansetron HCl (Ondansetron Inj 2 Mg/Ml 2 Ml Vial) 4 mg IV Q6H PRN PRN Reason: Nausea Stop: 03/29/21 00:38 Potassium Chloride (Potassium Chloride Crtab 20 Meq Tabcr) 20 meq PO QAM [facility] Stop: 03/31/21 10:29 Last Admin: 03/02/21 09:09 Dose: 20 meq Documented by: Psyllium Hydrophilic Mucilloid (Psyllium 58.6% Powder Packet) 1 pkt PO DAILY PRN PRN Reason: Constipation Stop: 03/29/21 00:59 Sildenafil Citrate (Sildenafil Citrate 20 Mg Tablet) 20 mg PO BID [facility] Stop: 03/29/21 08:59 Last Admin: 03/02/21 09:10 Dose: 20 mg Documented by: Terazosin HCl (Terazosin Hcl 5 Mg Cap) 10 mg PO HS [facility] Stop: 03/29/21 20:59 Last Admin: 03/01/21 20:09 Dose: 10 mg Documented by: Thiamine HCl (Thiamine Hcl 100 Mg Tab) 100 mg PO DAILY [facility] Stop: 03/29/21 08:59 Last Admin: 03/02/21 09:10 Dose: 100 mg Documented by: Vitamin D (Cholecalciferol 1,000 Units 25 Mcg Tab) 2,000 units PO DAILY [facility] Stop: 03/29/21 08:59 Last Admin: 03/02/21 09:09 Dose: 2,000 units Documented by:
[2021-03-02] MEDS: ASPIRIN 81 MG ECTAB PO SCH (10:45)
[2021-03-02] MEDS: CEFEPIME 2,000 MG in SYRINGE 0 ML IV SCH (17:43)
--- NOTE | 2021-03-02 19:18 | Hospitalist Progress Note ---
Date of Service March 02, 2021 Assessment & Plan (1) Hematuria: (2) Anemia: Plan: 80-year-old male w/ PMH of hyperlipidemia, right sided heart failure, cor pulmonale, recent EF was showing only 35%, CAD, peripheral vascular disease s/p stent, severe aortic stenosis, ASD s/p closure, hypertension, , prostate cancer s/p surgery and radiation, seizure disorder, chronic anemia, history of alcohol abuse, past tobacco abuse. He was recently admitted with new onset rapid A. fib and syncope when he was transferred to [place] because of his severe aortic stenosis and severe pulmonary hypertension were he was also found to have hematuria during hospitalization and underwent continuous bladder irrigation by urology [likely secondary to radiation versus traumatic Grande insertion] and discharged on 02/24/2021 with advised to follow-up outpatient with cardiology and urology and valve clinic. Patient presented 02/27 with complaint of weakness/tiredness/lightheadedness/almost passing out and also had ongoing hematuria. At presentation his hemodynamics were stable. He is being managed for the following: #. Anemia: 2/2 hematuria #. Hematuria: History of A. fib on Eliquis, CAD, CHF 35%, right-sided failure, Severe Aortic s tenosis Hematuria in the setting of chronic anticoagulation and history of surgery/radiation for prostate cancer. Urology consulted: Status post 02/28 cystoscopy with urethral dilation and clot evacuation, and extensive fulguration. Continue Grande catheter for 1 to 2 weeks to allow the bladder of time for healing. Outpatient follow-up with urology for voiding trial and to finalize work-up. Admitting hemoglobin 7.9, status post 2 unit PRBCs. Hemoglobin stable at around 9-10. At bedside exam, no blood noted in his urinary collection. Monitor hemoglobin daily. Eliquis and Plavix on hold. #. NEAR SYNCOPE/WEAKNESS SECONDARY TO ANEMIA, UNDERLYING PNEUMONIA AND UTI Management as noted elsewhere. #. ATRIAL FIBRILLATION #. HISTORY OF CAD, CHF 35% #. RIGHT-SIDED HEART FAILURE #. SEVERE AORTIC STENOSIS Rate controlled Continue amiodarone- reduced dose for prolonged QT Metoprolol Continue Lasix 40 mg twice a day Eliquis and Plavix held Cardiology consulted: recommend at least Aspirin 81mg as hematuria improves. Okay to DC with cardiology perspective, follow-up with cardiology 03/10. As long as he is on amio and maintaining NSR, will hold Eliquis. Hematuria needs to be resolved/worked up before patient can consider TAVR #. UTI Urine culture gram-positive cocci 9000 units no sensitivities to follow on Zosyn since 02/27, changed to cefepime since 03/02 We will continue antibiotic for total of 7 days. #. PNEUMONIA, LEFT LOWER LOBE POSSIBLE HCAP GIVEN RECENT ADMISSION TO THE HOSPITAL IN [facility] Blood cultures negative so far Sputum culture pending collection MRSA swab negative Respiratory status stable On cefepime 03/02 and doxy 02/27 Continue antibiotic for total of 7 days. #. VENKATA over CKD Baseline creatinine WNL Presented with elevated creatinine which normalized during hospital stay and is again uptrending Given severe aortic stenosis and intricacies involved with fluid resuscitation, will consult nephrology. Await recommendation from nephrology. #. HYPERTENSION Monitor #. SEIZURE DISORDER Continue Keppra 500 mg twice a day Alcohol use Smoker DVT prophylaxis SCDs. Disposition: CM working with [facility]. Likely DC after renal improvement/nephrology clearance. Admission and Anticipated Discharge Date Admission Date: February 26, 2021 Subjective Patient was lying in bed semiupright, on room air, NAD, no acute events overnight. Patient reports feeling better. Patient denies any headache/dizziness/chills/chest pain/palpitation/other review of symptoms. Patient reports he walked with physical therapy better today. Physical Exam Physical Exam: GENERAL: Alert and oriented x3. NAD, on RA. HEENT: No pallor, no icterus. Pupils equal, round and reactive to light. Oral mucosa moist. NECK: No JVD, no neck masses. HEART: S1 and S2 heard. Regular rate and rhythm. Systolic murmur over aortic and pulmonic area, no gallop. RESPIRATORY SYSTEM: Normal AP diameter. No accessory muscle use. No wheezing, no crackles. ABDOMEN: Soft, bowel sounds present, nontender, no distention. CENTRAL NERVOUS SYSTEM: Alert and oriented x3. No facial droop. Speech is clear. Obeys simple commands. Moves extremities. EXTREMITIES: No edema, no erythema seen. Results & Data Results & Data ([facility]) Vital Signs (Past 12 Hours) Vital Signs Temp Pulse Pulse Resp BP Pulse Ox 03/02/21 15:34 36.9 C 59 L 18 129/61 98 03/02/21 11:49 97 03/02/21 11:32 36.5 C 68 17 126/64 92 03/02/21 09:54 66 03/02/21 08:00 37.0 C 66 18 118/69 96
[2021-03-02] MEDS: ATORVASTATIN 20 MG TAB PO SCH (20:22)
[2021-03-02] MEDS: TERAZOSIN HCL 5 MG CAP PO SCH (20:23)
--- NOTE | 2021-03-02 21:13 | Consultation Report ---
NEPHROLOGY CONSULTATION NOTE DATE OF CONSULTATION: 03/02/2021. REASON FOR CONSULTATION: Acute renal failure. HISTORY OF PRESENT ILLNESS: The patient is an 80-year-old male who was admitted 4 days ago when he p resented to the Emergency Department with gross hematuria and near syncopal episode. He was found to have somewhat low blood pressure as well as low hemoglobin. It is worth noting that the patient was discharged from [facility] in [place] following an admission for severe aortic stenos is, severe pulmonary hypertension with new onset rapid AFib and syncope. He had an echocardiogram do md, which showed EF of 35%, diffuse hypokinesis and severe aortic stenosis. He was started on a hepa rin drip and switched over to Eliquis, so that is a new anticoagulant for him. It appears he also browning d some degree of hematuria during his hospitalization in [place]. He was also seen by Urology and al so had continuous bladder irrigation. During this time when he presented to [facility], he was lightheaded with near syncope and had significant ongoing hematuria with blood clot. Si nce the admission, he has had urological procedure done in the operating room and now has clear urine . He is on Lasix 40 b.i.d. and with that he is making lots of urine. He is starting to feel better and now wants to go home. It appears that he needs to have TAVR done after he gets back on the Eliqu is. ALLERGIES: BEE VENOM, LORAZEPAM. PAST MEDICAL AND SURGICAL HISTORY: Includes hypertension, hyperlipidemia, right sided heart failure, cor pulmonale, congestive heart failure with EF of 35%, coronary artery disease, peripheral vascular disease, status post stent, severe aortic stenosis with request TAVR, ASD status post closure, hyper tension, hyperlipidemia, history of prostate cancer surgery and radiation, history of seizure disorde r, chronic anemia, history of alcohol abuse in the past, past tobacco abuse, lower extremity angiogra m, left and right heart catheterization, left iliofemoral endarterectomy with pericardial patch angio plasty, multiple peripheral vascular disease surgeries done, DC cardioversion, cervical and lumbar he milaminectomy. MEDICATIONS: At home was also reviewed in detail and is as per the reconciliation list. FAMILY HISTORY: Significant for brother with skin cancer. SOCIAL HISTORY: He is . Former smoker, quit in 1978, was still drinking alcohol pretty much every day. REVIEW OF SYSTEMS: As detailed in HPI. Positive review of systems includes gross hematuria, weaknes s and near syncope. Otherwise, 12 systems reviewed and negative. PHYSICAL EXAMINATION: GENERAL: Elderly white male who is not in any overt respiratory distress at this time. He is able t o give me a pretty detailed account of his medical problem. Mucous membrane is moist. NECK: Supple. No jugular venous distention. VITAL SIGNS: Blood pressure 126/64, pulse rate 68, temperature 36.5 degrees Celsius, 97% on room air . HEENT: Mucous membranes are moist. CHEST: Bilaterally clear to auscultation. HEART: S1 and S2, regular. ABDOMEN: Soft, nontender. EXTREMITIES: Show no edema. CARDIOVASCULAR: Regular rate and rhythm. Systolic murmur heard. LABORATORY TEST: On admission 3 days ago he had a creatinine of 1.27 since then it has steadily gone up to 1.49 and 1.63. Today, BUN is 22. Sodium 138, potassium 3.5, calcium 8.6, WBC count 11,000, he moglobin 9.8. ASSESSMENT AND PLAN: An 80-year-old male with significant cardiac problems, admitted with gross ivory turia causing anemia and syncope like event. I have been consulted for slight elevation in creatinin e. I have been consulted for slight acute renal failure. Acute renal failure. This is most likely multifactorial in the setting of hypotension, syncope like e vent, significant anemia following blood loss causing slight elevation in creatinine in a highly susc eptible patient with significant cardiac disease. Considering all the things that has happened in the last few days, the rise in creatinine is pretty minimal and should get better in the coming days. H is blood pressure is stable at this point and bleeding seems to have stopped. Continue current medic ation including Lasix as prescribed by Cardiology. No further workup is needed for slight acute shamika l failure. Job ID: [id number]
[2021-03-03] MEDS: CEFEPIME 2,000 MG in SYRINGE 0 ML IV SCH (05:33)
[2021-03-03 07:28] LABS: Hematocrit (blood only) 27.2 % (42-52); Mean Corpuscular Hemoglobin 29.5 pg (25-34); Mean Corpuscular Hgb Conc 33.1 g/dL (32-36); Mean Corpuscular Volume 89.2 fL (80-100); Mean Platelet Volume 8.6 fL (7.4-10.4); Platelet Count 355 K/uL (130-400); RDW Coefficient of Variation 15.8 % (11.5-14.5); RDW Standard Deviation 51.2 fL (36.4-46.3); Red Blood Count 3.05 M/uL (4.7-6.1); White Blood Count 10.82 K/uL (4.8-10.8)
[2021-03-03 07:55] LABS: BUN Creatinine Ratio 15.5 (10-20); Calcium 8.7 mg/dl (8.5-10.1); Creatinine Clr Calc Pharmacy 40.6 ml/min; Est GFR (African American) 60.6 ml/min; Est GFR (Non-African American) 52.3 ml/min; Potassium 3.6 mmol/L (3.5-5.1)
[2021-03-03] MEDS: AMIODARONE 200 MG TAB PO SCH (08:07)
[2021-03-03] MEDS: levETIRAcetam 500 MG TAB PO SCH (08:07)
[2021-03-03] MEDS: DOXYCYCLINE HYCLATE 100 MG CAP PO SCH (08:07)
[2021-03-03] MEDS: GABAPENTIN 400 MG CAP PO SCH ×2 (08:08→14:24)
[2021-03-03] MEDS: MULTIVITAMIN TAB PO SCH (08:08)
[2021-03-03] MEDS: POTASSIUM CHLORIDE CRTAB 20 MEQ TABCR PO SCH (08:08)
[2021-03-03] MEDS: FUROSEMIDE 40 MG TAB PO SCH ×2 (08:08→17:00)
[2021-03-03] MEDS: CHOLECALCIFEROL 1,000 UNITS 25 MCG TAB PO SCH (08:08)
[2021-03-03] MEDS: EZETIMIBE 10 MG TABLET PO SCH (08:08)
[2021-03-03] MEDS: SILDENAFIL CITRATE 20 MG TABLET PO SCH (08:08)
[2021-03-03] MEDS: ASCORBIC ACID 500 MG TAB PO SCH (08:08)
[2021-03-03] MEDS: METOPROLOL TARTRATE 50 MG TAB PO SCH ×2 (08:09→14:24)
[2021-03-03] MEDS: THIAMINE HCL 100 MG TAB PO SCH (08:09)
[2021-03-03] MEDS: ASPIRIN 81 MG ECTAB PO SCH (08:09)
--- NOTE | 2021-03-03 09:32 | Cardiology Progress Note ---
Date of Service March 03, 2021 Assessment & Plan (1) Severe calcific aortic stenosis: Plan: Patient appears euvolemic currently Has appt in March 2021 with valve clinic to discuss TAVR Unfortunately hematuria needs to be resolved, as he will require antiplatelet therapy for TAVR (2) PAF (paroxysmal atrial fibrillation): Plan: Maintaining NSR Continue amiodarone 200 mg BID. Reduce to 200 mg daily on 03/07 Eliquis on hold due to hematuria (3) Anemia: Plan: CBC trended down to 9.0 this morning. no evidence of gross hematuria. (4) Hematuria: Plan: Improving post cystoscopy Plan: Continue amiodarone to maintain NSR. Dose reduced to 200 mg BID during admission, and further reduction to 200 mg daily on 03/07. Holding anticoagulation and antiplatelet therapy for hematuria. Given extensive PVD, will resume ASA 81 mg daily. Plavix and Eliquis remain on hold. Hematuria needs to be resolved before patient can consider TAVR He appears euvolemic. He should continue other cardiac medications including metoprolol, furosemide, Zetia. Case discussed with Dr. Powell. Stable for discharge from cardiac perspective with above recommendations. He has f/u already scheduled on 03/10 with ALICIA Morse at [facility] and will keep this appt. Admission and Anticipated Discharge Date Admission Date: February 26, 2021 Supervising Physician Co-Signing Physician Notes Patient seen and examined with Key Jesus PA-C. Agree with findings and assessment as above. Aspirin restarted, tolerating. Cont amio. Subjective Patient resting comfortably in bed. Getting anxious to be discharge. Denies chest pain, SOB, palpitations or tachypalpitations. No dizziness. No gross hematuria noted. No edema. Review of Systems Review of Systems: Review of Systems: See HPI for pertinent positives. All other 10 point review of systems are negative. Physical Exam Physical Exam: General: no acute distress and stated age Head: normocephalic, no masses, lesions, tenderness or abnormalities Eyes: conjunctiva are pink and non-injected, sclera clear Neck: supple, no adenopathy, no bruits, normal jugular venous pulse, no hepatojugular reflux Chest: normal shape and normal respiratory effort Lungs: clear to auscultation and percussion Cardiac Exam: - regular rate & rhythm, systolic murmur left sternal border- normal S1, normal S2 Pulses: 2(+) throughout Abdomen: abdomen soft, non-tender, no abnormal masses and no hepatosplenomegaly Musculoskeletal: no gait disturbance, no joint inflammation, no deforming arthritis Extremities: no edema and no cyanosis Neuro: grossly normal exam Results & Data ([facility]) Vital Signs (Past 12 Hours) Vital Signs Temp Pulse Pulse Resp BP Pulse Ox 03/03/21 08:00 36.8 C 73 18 119/52 L 91 03/03/21 04:29 36.6 C 70 16 116/56 L 93 03/03/21 01:00 68 03/03/21 00:00 36.7 C 70 18 109/50 L 92 Laboratory Results 03/03/21 03/03/21 Range/Units 06:42 06:42 WBC 10.82 H (4.8-10.8) K/uL RBC 3.05 L (4.7-6.1) M/uL Hgb 9.0 L (14.0-18.0) g/dL Hct 27.2 L (42-52) % MCV 89.2 (80-100) fL MCH 29.5 (25-34) pg MCHC 33.1 (32-36) g/dL RDW Std Deviation 51.2 H (36.4-46.3) fL RDW Coeff of Ruth 15.8 H (11.5-14.5) % Plt Count 355 (130-400) K/uL MPV 8.6 (7.4-10.4) fL Sodium 138 (136-145) mmol/L Potassium 3.6 (3.5-5.1) mmol/L Chloride 104 (98-107) mmol/L Carbon Dioxide 27 (21-32) mmol/L Anion Gap 8.0 (3-11) BUN 20 H (7-18) mg/dl Creatinine 1.27 D (0.6-1.4) mg/dl Est Cr Clr Drug Dosing 40.6 ml/min Est GFR ( Amer) 60.6 ml/min Est GFR (Non-Af Amer) 52.3 ml/min BUN/Creatinine Ratio 15.5 (10-20) Glucose 106 H (70-99) mg/dl Calcium 8.7 (8.5-10.1) mg/dl Diagnostic Findings Telemetry reviewed - NSR with occ PVC. no afib. Medications Administered Current Inpatient Medications Acetaminophen (Acetaminophen 325 Mg Tab) 650 mg PO Q4H PRN PRN Reason: Pain or Fever Stop: 03/29/21 00:38 Last Admin: 03/01/21 16:19 Dose: 650 mg Documented by: Amiodarone HCl (Amiodarone 200 Mg Tab) 200 mg PO QAM LARRY Stop: 04/06/21 08:59 Amiodarone HCl (Amiodarone 200 Mg Tab) 200 mg PO BID LARRY Stop: 03/06/21 23:59 Last Admin: 03/03/21 08:07 Dose: 200 mg Documented by: Ascorbic Acid (Ascorbic Acid 500 Mg Tab) 500 mg PO DAILY LARRY Stop: 03/29/21 08:59 Last Admin: 03/03/21 08:08 Dose: 500 mg Documented by: Aspirin (Aspirin 81 Mg Ectab) 81 mg PO QAM LARRY Stop: 04/01/21 09:59 Last Admin: 03/03/21 08:09 Dose: 81 mg Documented by: Atorvastatin Calcium (Atorvastatin 20 Mg Tab) 20 mg PO HS LARRY Stop: 03/29/21 20:59 Last Admin: 03/02/21 20:22 Dose: 20 mg Documented by: Doxycycline Hyclate (Doxycycline Hyclate 100 Mg Cap) 100 mg PO BID LARRY Stop: 03/06/21 00:38 Last Admin: 03/03/21 08:07 Dose: 100 mg Documented by: Ezetimibe (Ezetimibe 10 Mg Tablet) 10 mg PO DAILY LARRY Stop: 03/29/21 08:59 Last Admin: 03/03/21 08:08 Dose: 10 mg Documented by: Epinephrine HCl (Epinephrine Inj 1 Mg/Ml Amp) 0.3 mg IM UD PRN PRN Reason: Allergic Reaction Stop: 03/29/21 00:54 Furosemide (Furosemide 40 Mg Tab) 40 mg PO BID17 LARRY Stop: 03/29/21 08:59 Last Admin: 03/03/21 08:08 Dose: 40 mg Documented by: Gabapentin (Gabapentin 400 Mg Cap) 400 mg PO TID LARRY Stop: 03/29/21 08:59 Last Admin: 03/03/21 08:08 Dose: 400 mg Documented by: Cefepime HCl 2,000 mg/ Syringe 20 mls @ 5 mls/min IV Q12@0600,1800 [facility]; Protocol Stop: 03/09/21 17:59 Last Admin: 03/03/21 05:33 Dose: 5 mls/min Documented by: Levetiracetam (Levetiracetam 500 Mg Tab) 500 mg PO BID [facility] Stop: 03/29/21 08:59 Last Admin: 03/03/21 08:07 Dose: 500 mg Documented by: Metoprolol Tartrate (Metoprolol Tartrate 50 Mg Tab) 50 mg PO TID [facility] Stop: 03/29/21 08:59 Last Admin: 03/03/21 08:09 Dose: 50 mg Documented by: Multivitamins (Multivitamin Tab) 1 tab PO DAILY [facility] Stop: 03/29/21 08:59 Last Admin: 03/03/21 08:08 Dose: 1 tab Documented by: Multivitamins/Minerals (Calcium 600mg + Vit D 400 Iu Tab) 1 tab PO DAILY@1100 [facility] Stop: 03/29/21 10:59 Last Admin: 03/02/21 09:09 Dose: 1 tab Documented by: Ondansetron HCl (Ondansetron Inj 2 Mg/Ml 2 Ml Vial) 4 mg IV Q6H PRN PRN Reason: Nausea Stop: 03/29/21 00:38 Potassium Chloride (Potassium Chloride Crtab 20 Meq Tabcr) 20 meq PO QAM [facility] Stop: 03/31/21 10:29 Last Admin: 03/03/21 08:08 Dose: 20 meq Documented by: Psyllium Hydrophilic Mucilloid (Psyllium 58.6% Powder Packet) 1 pkt PO DAILY PRN PRN Reason: Constipation Stop: 03/29/21 00:59 Sildenafil Citrate (Sildenafil Citrate 20 Mg Tablet) 20 mg PO BID [facility] Stop: 03/29/21 08:59 Last Admin: 03/03/21 08:08 Dose: 20 mg Documented by: Terazosin HCl (Terazosin Hcl 5 Mg Cap) 10 mg PO HS [facility] Stop: 03/29/21 20:59 Last Admin: 03/02/21 20:23 Dose: 10 mg Documented by: Thiamine HCl (Thiamine Hcl 100 Mg Tab) 100 mg PO DAILY [facility] Stop: 03/29/21 08:59 Last Admin: 03/03/21 08:09 Dose: 100 mg Documented by: Vitamin D (Cholecalciferol 1,000 Units 25 Mcg Tab) 2,000 units PO DAILY LARRY Stop: 03/29/21 08:59 Last Admin: 03/03/21 08:08 Dose: 2,000 units Documented by:
--- NOTE | 2021-03-03 09:40 | Nephrology Progress Note ---
Date of Service March 03, 2021 Assessment & Plan Admission and Anticipated Discharge Date Admission Date: February 26, 2021 Subjective No new issues. No hematuria now. PHYSICAL EXAMINATION: GENERAL: Elderly white male who is not in any overt respiratory distress at this time. He is able to give me a pretty detailed account of his medical problem. Mucous membrane is moist. NECK: Supple. No jugular venous distention. HEENT: Mucous membranes are moist. CHEST: Bilaterally clear to auscultation. HEART: S1 and S2, regular. ABDOMEN: Soft, nontender. EXTREMITIES: Show no edema. CARDIOVASCULAR: Regular rate and rhythm. Systolic murmur heard. LABORATORY TEST: On admission 3 days ago he had a creatinine of 1.27 since then it has steadily gone up to 1.49 and 1.63. Today now is 1.27 again. ASSESSMENT AND PLAN: An 80-year-old male with significant cardiac problems, admitted with gross hematuria causing anemia and syncope like event. I have been consulted for slight elevation in creatinine. I have been consulted for slight acute renal failure. Acute renal failure. This is most likely multifactorial in the setting of hypotension, syncope like event, significant anemia following blood loss causing slight elevation in creatinine in a highly susceptible patient with significant cardiac disease. Considering all the things that has happened in the last few days, the rise in creatinine is pretty minimal and should get better in the coming days. His blood pressure is stable at this point and bleeding seems to have stopped. Continue current medication including Lasix as prescribed by Cardiology. Creat back down to baseline now. No f/u needed for nephrology. Results & Data ([facility]) Vital Signs (Past 12 Hours) Vital Signs Temp Pulse Pulse Resp BP Pulse Ox 03/03/21 08:00 36.8 C 73 18 119/52 L 91 03/03/21 04:29 36.6 C 70 16 116/56 L 93 03/03/21 01:00 68 03/03/21 00:00 36.7 C 70 18 109/50 L 92
[2021-03-03] MEDS: CALCIUM 600MG + VIT D 400 IU TAB PO SCH (10:16)
--- NOTE | 2021-03-03 18:28 | Discharge Summary ---
Date of Service March 03, 2021 Admission HPI Per Admitting Provider CHIEF COMPLAINT: Near syncope, hematuria. HISTORY OF PRESENT ILLNESS: This is an 80-year-old male with past medical history significant for hyperlipidemia, right sided heart failure, cor pulmonale, recent EF was showing only 35%, CAD, peripheral vascular disease status post stent, severe aortic stenosis, ASD status post closure, hypertension, hyperlipidemia, prostate cancer, status post surgery and radiation, seizure disorder, chronic anemia, history of alcohol abuse, past tobacco abuse. The patient was recently here in the hospital with new onset rapid AFib and also syncope. At that time because of his severe aortic stenosis and severe pulmonary hypertension, patient was transferred to [place]. At that time, he also had hyponatremia. In [place], his echo was done, showed EF of 35%, diffuse hypokinesis, severe aortic stenosis. He was started on heparin drip and changed to Eliquis. Supposed to get direct current cardioversion but he was found coming back to normal sinus rhythm. He was administered amiodarone to help with rhythm control and advised to follow up with the Valve Clinic and also advised to repeat echocardiogram. Also had hematuria during the hospitalization in [place]. He was seen by Urology was performed continuous bladder irrigation. It was felt that the hematuria was secondary to either radiation or from traumatic Grande insertion. Renal ultrasound showed no notable abnormalities. His hemoglobin was stable and he was discharged on 02/24/2021 and advised to follow up with Cardiology in next 3-5 days with Urology and Valve Clinic. Patient says after coming home, he was not feeling well, he was feeling weak and tired, feeling lightheaded, almost passing out and also has ongoing hematuria that is the reason he came here yesterday. Hemodynamics are stable. Denies any chest pain, no shortness of breath. Has some cough and bringing some nathan colored sputum. Denies any headache. No blurred visions, no earache, no runny nose. Has some sore throat, no nausea, no abdominal pain. Bowels are moving okay. Denies any blood in the stools. Swelling in the legs. He says for the last 7 days, he did not drink any alcohol. ALLERGIES: BEE VENOM, LORAZEPAM. PAST MEDICAL HISTORY: As mentioned above. PAST SURGICAL HISTORY: Aortogram with bilateral lower extremity angiogram, colonoscopy, left and right heart catheterization, left iliofemoral endarterec kizzy with pericardial patch angioplasty with extension into the deep femoral artery, left superficial femoral artery balloon angioplasty and Absolute Pro self-expanding stent placement, DC cardioversion, cervical and lumbar hemilaminectomy left side, iliac artery revascularization, single lumbar laminectomy, left lumbar hemilaminectomy to single site, needle/punch biopsy of prostate, removal of appendectomy, tonsillectomy, sacroiliac joint injection, removal of neck spine lamina, left carotid endarterectomy. MEDICATIONS: The patient is on amiodarone 200 mg p.o. t.i.d., amoxicillin 2 mg p.o. p.r.n., Eliquis 5 mg p.o. b.i.d., vitamin C 500 mg p.o. daily, atorvastatin 20 mg p.o. at bedtime, calcium plus vitamin D 1 capsule p.o. daily, vitamin D 50 mcg p.o. daily, Plavix 75 mg p.o. daily, Coenzyme Q10 200 mg p.o. daily, EpiPen 0.3 mg IM p.r.n., ezetimbe 10 mg p.o. daily, Lasix 40 mg p.o. b.i.d., gabapentin 400 mg p.o. t.i.d., Keppra 500 mg p.o. b.i.d., Metamucil 1 tablespoon p.o. daily p.r.n., metoprolol tartrate 50 mg p.o. daily, multivitamin one tablet p.o. daily, sildenafil 20 mg p.o. b.i.d., terazosin 10 mg p.o. at bedtime, vitamin B1 100 mg p.o. daily. FAMILY HISTORY: Significant for brother has skin cancer. Father had throat and prostate cancer. Mother of CHF; mother had lung disorder. SOCIAL HISTORY: , former smoker, quit in 1978, smoked 2 packs a day. Alcohol 2-3 drinks per day, for the last 7 days he is not drinking alcohol. No drug use. REVIEW OF SYSTEMS: As per HPI. Rest of review of systems is negative. Admission Exam Per Admitting Provider GENERAL: The patient is of moderate build, not in acute distress. VITAL SIGNS: Temperature 36.7, pulse 67, respiratory rate 19, blood pressure 120/56, oxygen 93% on room air. HEENT: Pupils equal, round and reactive to light. Oral mucosa moist. NECK: No JVD, no neck masses. CARDIOVASCULAR: S1 and S2 heard. Regular rate and rhythm. No murmur, no gallop. RESPIRATORY: Normal AP diameter. No accessory muscle use. No wheezing, no crackles. ABDOMEN: Soft, bowel sounds present, nontender, no distention. CENTRAL NERVOUS SYSTEM: Cranial nerves II-XII grossly intact, nonfocal. EXTREMITIES: No edema, no erythema. Principal Diagnosis Anemia secondary to hematuria Weakness UTI Pneumonia Discharge Exam GENERAL: Alert and oriented x3. NAD, on RA. HEENT: No pallor, no icterus. Pupils equal, round and reactive to light. Oral mucosa moist. NECK: No JVD, no neck masses. HEART: S1 and S2 heard. Regular rate and rhythm. Systolic murmur over aortic and pulmonic area, no gallop. RESPIRATORY SYSTEM: Normal AP diameter. No accessory muscle use. No wheezing, no crackles. ABDOMEN: Soft, bowel sounds present, nontender, no distention. CENTRAL NERVOUS SYSTEM: Alert and oriented x3. No facial droop. Speech is clear. Obeys simple commands. Moves extremities. EXTREMITIES: No edema, no erythema seen. Discharge Data Allergies Allergy/AdvReac Type Severity Reaction Status Date / Time bee venom protein (honey bee) Allergy Severe ANAPHYLAXIS-YELLOW Verified 02/26/21 19:22 JACKETS lorazepam AdvReac Mild oversedation Verified 02/26/21 19:22 from AWSS protocol Uncoded Nonscreenable Allergy Severe All Uncoded 02/26/21 19:22 Allergen IV's must be administered thru 0.2mic in-line filter Consultations 02/27/21 08:00 Consult Cardiology Routine Consult Urology Routine 03/02/21 12:36 Consult Nephrology Routine Procedures Performed Operation Date: 02/28/21 17:30 Actual Procedures p Cystoscopy;Urethral Dilation; Clot Evacuation; Fulguration - Gibran Turcios DO Ordered Studies 02/26/21 22:52 CT chest diagnostic wo con Urgent 02/28/21 11:04 CT abdomen pelvis wo/w con Urgent Hospital Course (1) Hematuria: (2) Anemia: 80-year-old male w/ PMH of hyperlipidemia, right sided heart failure, cor pulmonale, recent EF was showing only 35%, CAD, peripheral vascular disease s/p stent, severe aortic stenosis, ASD s/p closure, hypertension, , prostate cancer s/p surgery and radiation, seizure disorder, chronic anemia, history of alcohol abuse, past tobacco abuse. He was recently admitted with new onset rapid A. fib and syncope when he was transferred to [place] because of his severe aortic stenosis and severe pulmonary hypertension were he was also found to have hematuria during hospitalization and underwent continuous bladder irrigation by urology [likely secondary to radiation versus traumatic Grande insertion] and discharged on 02/24/2021 with advised to follow-up outpatient with cardiology and urology and valve clinic. Patient presented 02/27 with complaint of weakness/tiredness/lightheadedness/almost passing out and also had ongoing hematuria. At presentation his hemodynamics were stable. He is being managed for the following: #. Anemia: 2/2 hematuria #. Hematuria: History of A. fib on Eliquis, CAD, CHF 35%, right-sided failure, Severe Aortic stenosis Hematuria in the setting of chronic anticoagulation and history of surgery/radiation for prostate cancer. Urology consulted: Status post 02/28 cystoscopy with urethral dilation and clot evacuation, and extensive fulguration. Continue Grande catheter for 1 to 2 weeks to allow the bladder of time for healing. Outpatient follow-up with urology for voiding trial and to finalize work-up. Admitting hemoglobin 7.9, status post 2 unit PRBCs. Hemoglobin stable at around 9-10. At bedside exam, no blood noted in his urinary collection. Continue holding Eliquis and Plavix, patient on aspirin upon discharge. Follow-up with cardiology for reevaluation and possible reinitiation your blood thinners. Follow-up with urology after discharge in 1 to 2 weeks for reevaluation and removal of urinary catheter. #. NEAR SYNCOPE/WEAKNESS SECONDARY TO ANEMIA, UNDERLYING PNEUMONIA AND UTI Management as noted elsewhere. #. ATRIAL FIBRILLATION #. HISTORY OF CAD, CHF 35% #. RIGHT-SIDED HEART FAILURE #. SEVERE AORTIC STENOSIS Rate controlled Continue amiodarone- reduced dose for prolonged QT Metoprolol Continue Lasix 40 mg twice a day Eliquis and Plavix held Cardiology consulted: recommend at least Aspirin 81mg as hematuria improves. Okay to DC with cardiology perspective, follow-up with cardiology 03/10. Hematuria needs to be resolved/worked up before patient can consider TAVR #. UTI Urine culture gram-positive cocci 9000 units no sensitivities to follow on Zosyn since 02/27, changed to cefepime since 03/02 We will continue antibiotic for total of 7 days. #. PNEUMONIA, LEFT LOWER LOBE POSSIBLE HCAP GIVEN RECENT ADMISSION TO THE HOSPITAL IN [facility] Blood cultures negative so far Sputum culture pending collection MRSA swab negative Respiratory status stable DC'd on antibiotics to complete 7-day course. #. VENKATA over CKD Resolved #. HYPERTENSION Monitor #. SEIZURE DISORDER Continue Keppra 500 mg twice a day DVT prophylaxis SCDs. Patient discharged to [facility] with following instruction at the time discharge: Follow-up with your primary care physician within a week time. Follow-up with cardiology as scheduled on 03/10 . Your Plavix and Eliquis has been put on hold until you are reevaluated by your cardiology as an outpatient. We will continue with aspirin at discharge. You will be discharged with a Grande catheter for 1 to 2 weeks to allow the bladder time for healing. Follow-up with urology as an outpatient to evaluate and finalize work-up/removal of Grande catheter in 1-2 weeks time. Your amiodarone dose has been reduced: 200 mg twice a day until 03/07/2021 then 20 mg daily. Get your blood work [CBC and BMP] done in 3 to 5 days of discharge. Complete the remaining days of antibiotics for pneumonia. Follow-up chest x-ray in 4 to 6 weeks to document resolution of pneumonia. Maintain your appt in March 2021 with valve clinic to discuss TAVR. Take medications as prescribed. Total Time Total Time Spent Total Time Spent (In Minutes): 50 Discharge Plan Discharge Items Patient Disposition: Transfer Inpatient Rehab Fac Reason For Visit: NEAR SYNCOPE Discharge Diagnosis: Anemia secondary to hematuria Weakness UTI Pneumonia Activity: Resume your previous activity Non-emergency contact: Primary Care Provider Call non-emergency contact if: you have any medication questions, your symptoms worsen and your temperature is above 101 Follow-up/Referrals: Luis Fernando Beyer MD [Outside Practitioners] - (Date & Time 03/16/2021 8:15 AM Provider Luis Fernando Beyer MD Department Urology, [facility] ) Henry Campbell MD [Primary Care Provider] - Jacy Yuen CRNP [Nurse Practitioner] - (Date & Time 03/10/2021 8:30 AM Provider ALICIA Elliott Department Cardiology, [facility] ) Diet: Heart Healthy Addtl Attending Provider Instructions: Follow-up with your primary care physician within a week time. Follow-up with cardiology as scheduled on 03/10 . Your Plavix and Eliquis has been put on hold until you are reevaluated by your cardiology as an outpatient. We will continue with aspirin at discharge. You will be discharged with a Grande catheter for 1 to 2 weeks to allow the bladder time for healing. Follow-up with urology as an outpatient to evaluate and finalize work-up/removal of Grande catheter in 1-2 weeks time. Your amiodarone dose has been reduced: 200 mg twice a day until 03/07/2021 then 20 mg daily. Get your blood work [CBC and BMP] done in 3 to 5 days of discharge. Complete the remaining days of antibiotics for pneumonia. Follow-up chest x-ray in 4 to 6 weeks to document resolution of pneumonia. Maintain your appt in March 2021 with valve clinic to discuss TAVR. Take medications as prescribed. Pending Studies at Discharge: Yes (Admitting blood culture final results.) Stand-Alone Forms: My [facility] Skilled Items Patient informed of condition?: Yes DNR: No Discharge Level of Care: Acute rehab Communicable Disease: No Discharge Prognosis: Stable Lines: None Urinary Catheter: Yes Medications and DC Order Prescriptions: New doxycycline hyclate 100 mg Capsule 100 mg PO BID 3 Days Qty: 6 RF: 0 amiodarone 200 mg Tablet 200 mg PO QAM Qty: 30 RF: 0 aspirin 81 mg Tablet,Delayed Release (Dr/Ec) 81 mg PO QAM Qty: 30 RF: 0 potassium chloride 20 mEq Tablet,Er Particles/Crystals 20 meq PO QAM Qty: 30 RF: 0 amiodarone 200 mg Tablet 200 mg PO BID 4 Days Qty: 8 RF: 0 amoxicillin-pot clavulanate 875-125 mg tablet 1 tab PO BID 3 Days Qty: 6 RF: 0 Continued multivitamin Tablet 1 tab PO DAILY RF: 0 amoxicillin 500 mg capsule 2,000 mg PO DIRECTED PRN (Reason: PRIOR TO DENTAL APPT.) RF: 0 furosemide 40 mg tablet 40 mg PO BID RF: 0 atorvastatin 20 mg tablet 20 mg PO HS RF: 0 levetiracetam 500 mg tablet 500 mg PO BID RF: 0 gabapentin 400 mg capsule 400 mg PO TID RF: 0 ascorbic acid (vitamin C) [Vitamin C] 500 mg Tablet 500 mg PO DAILY RF: 0 epinephrine [EpiPen] 0.3 mg/0.3 mL Auto-Injector 0.3 mg IM DIRECTED PRN (Reason: Allergic Reaction) RF: 0 terazosin 10 mg capsule 10 mg PO HS RF: 0 ezetimibe 10 mg tablet 10 mg PO DAILY RF: 0 Metamucil (sugar) Powder 1 tbsp PO DAILY PRN (Reason: Constipation) RF: 0 Calcium 600 + D(3) 600 mg calcium- 200 unit Capsule 1 cap PO DAILY RF: 0 sildenafil (pulm.hypertension) 20 mg tablet 20 mg PO BID RF: 0 cholecalciferol (vitamin D3) [Vitamin D3] 50 mcg (2,000 unit) Capsule 50 mcg PO DAILY RF: 0 coQ10 (ubiquinol) 200 mg Capsule 200 mg PO DAILY RF: 0 thiamine HCl (vitamin B1) [Vitamin B-1] 100 mg Tablet 100 mg PO DAILY RF: 0 metoprolol tartrate 50 mg tablet 50 mg PO TID RF: 0 Discontinued clopidogrel 75 mg tablet 75 mg PO DAILY RF: 0 amiodarone 200 mg tablet 200 mg PO TID RF: 0 Eliquis 5 mg tablet 5 mg PO BID RF: 0 Discharge Orders: Discharge Order (Routine); Ordered 03/03/21 Ordered By: Ajay Santiago Admission Data Admit Date/Time: 02/26/21 22:43 Attending Provider: Ajay Santiago Admit Provider: Kip Ybarra Primary Care Provider: Henry Campbell Other Providers: Anil Powell ; Dylan Prado ; Gautam Resendiz ; Ole Quintero ; Durga Fields ; Vasyl Rodriguez Rebecca K ; Jaimie Patel ; Jacy Yeun ; Freddy Mcneill ; Johnathan Child ; Anil Broussard ; Brian Nielsen ; Ana Lilia Pimentel ; Gibran Turcios ; Wanda Lopez ; [facility] ; Shala Guzmán ; Jacob Hui ; Ole Del Toro ; Dana Liu ; Stacie Guzmán ; Malcolm Portillo ; [facility] ; Nate Vargas Other Interventions: Discharge Summary Assessment (RN) Last Done: 03/03/21 15:45
[2021-03-07] MEDS ORDERED: AMIODARONE 200 MG TAB PO SCH (09:00)
--- NOTE | 2021-03-10 08:07 | Coding Query ---
CODING QUERY To promote full compliance with coding requirements relating to patient care, provider participation is requested in all cases of placement coordinator uncertainty. Please assist us with the question(s) below: Coding Question(s): Pt admitted with gross hematuria in setting of anticoagulants, post-radiation (for prostate cancer) and post traumatic rand insertion. Please document, if known or suspected, the etiology of the gross hematuria. Thanks for your help! Tonio GRESHAM [facility] Physician's Response(s): likely post operative status on the background of chronic anti-coagulation. Principal Diagnosis: "that condition established after study, to be chiefly responsible for occasioning the admission of the patient to the hospital for care." Co-Existing Principal Diagnosis: "when two or more diagnoses equally meet the criteria for principal diagnosis as determined by the circumstances of admission, diagnostic work up, and/or therapy provided, and the Alphabetic Index, Tabular List, or another coding guideline does not provide sequencing direction, any one of the diagnoses may be sequenced first." "When the physician has documented what appears to be a current diagnosis in the body of the record, but has not included the diagnosis in the final diagnostic statement, the physician should be asked whether the diagnosis should be added." (Source Coding Clinic 2 QTR90. p3-4) RICHY
--- NOTE | 2021-03-10 08:10 | Coding Query ---
ANEMIA To promote full compliance with coding requirements relating to patient care, physician participation is requested in all cases of air director uncertainty. Please assist us with the question(s) below: Coding Question(s): The record reflects the following clinical findings: Patient admitted with gross hematuria- went to OR for fulguration bladder lesions and removal clots .Pt transfused 2 UPC during this admission. Please check below the reason /diagnosis for the packed cells administration . Thanks for your help! Tonio Wright, AIRCRAFT INSPECTOR [employer] If these findings are indicative of anemia, please specify the known or suspected type by placing an "X" within the parenthesis (x). If other, please document type. Examples are: ( ) Acute blood loss anemia (x) Acute Postoperative blood loss anemia ( ) Acute postoperative anemia due to dilutional fluids ( ) Chronic blood loss anemia ( ) Anemia of chronic disease ( ) Aplastic anemia ( ) Anemia due to renal disease ( ) Anemia in neoplastic disease ( ) Iron deficient anemia ( ) Anemia, unspecified or other ( ) Other: (please specify) ( ) Unable to determine MTDD
== END 2021-03-03 17:30 | DRG 668 ==
LOC: ED 18:46 → 2S 22:43 → SUATTDRO 22:43 → 2S 02-27 00:23

== ENCOUNTER 2021-06-06 19:54 | Inpatient (IN) ==
[2021-06-06] MEDS ORDERED: TXA 10% Non-IV Routes 100 MG/ML VIAL TOP ONE (22:00)
[2021-06-06] MEDS ORDERED: LIDOCAINE/EPINEPHRINE 1% 20 ML VIAL INFIL ONE (22:00)
--- NOTE | 2021-06-06 23:42 | Emergency Department Note ---
History of Present Illness General Chief complaint: Fall Stated complaint: FALL/HIT HEAD Time Seen by Provider: 06/06/21 20:29 Source: patient Mode of arrival: EMS Limitations: no limitations History of Present Illness Provider complaint: Fall, head injury Onset (ago): hour(s) Treatments prior to arrival: none This is an 80-year-old male who presents from home after an accidental fall. Patient states he was bending over to fix something and place it in the refrige rator when he became off balance and fell backwards striking his head. Patient denies loss of consciousness. Patient states he was able to hold onto the refrigerator handle to help pull himself up. Patient states he noticed bleeding coming from his head. Patient does use blood thinners which she states are due to a history of heart problems. Patient denies any current headache, neck pain, back pain, nausea or vomiting, dizziness, vision changes. Patient denies any concern for any other injury. Patient states only recent medication change was addition of antibiotic for a UTI recently. Patient states he lives with his who is currently admitted in the hospital. Pt seen during a time of high acuity and national emergency pandemic while wearing PPE. Home Medications Medication Instructions Recorded Confirmed Type amoxicillin 500 mg capsule 2,000 mg PO DIRECTED PRN 02/18/21 02/26/21 History ascorbic acid (vitamin C) 500 mg 500 mg PO DAILY 02/18/21 02/26/21 History tablet (Vitamin C) atorvastatin 20 mg tablet 20 mg PO HS 02/18/21 02/26/21 History calcium carbonate 600 mg-vitamin 1 cap PO DAILY 02/18/21 02/26/21 History D3 5 mcg (200 unit) capsule (Calcium 600 + D(3)) cholecalciferol (vitamin D3) 50 50 mcg PO DAILY 02/18/21 02/26/21 History mcg (2,000 unit) capsule (Vitamin D3) coQ10 (ubiquinol) 200 mg capsule 200 mg PO DAILY 02/18/21 02/26/21 History epinephrine 0.3 mg/0.3 mL 0.3 mg IM DIRECTED PRN 02/18/21 02/26/21 History injection, auto-injector (EpiPen) ezetimibe 10 mg tablet 10 mg PO DAILY 02/18/21 02/26/21 History furosemide 40 mg tablet 40 mg PO BID 02/18/21 02/26/21 History gabapentin 400 mg capsule 400 mg PO TID 02/18/21 02/26/21 History levetiracetam 500 mg tablet 500 mg PO BID 02/18/21 02/26/21 History multivitamin 1 tab PO DAILY 02/18/21 02/26/21 History psyllium seed (sugar) oral powder 1 tbsp PO DAILY PRN 02/18/21 02/26/21 History (Metamucil (sugar)) sildenafil (pulm.hypertension) 20 20 mg PO BID 02/18/21 02/26/21 History mg tablet terazosin 10 mg capsule 10 mg PO HS 02/18/21 02/26/21 History metoprolol tartrate 50 mg tablet 50 mg PO TID 02/26/21 02/26/21 History thiamine HCl (vitamin B1) 100 mg 100 mg PO DAILY 02/26/21 02/26/21 History tablet (Vitamin B-1) amiodarone 200 mg tablet 200 mg PO QAM #30 tab 03/03/21 Rx aspirin 81 mg tablet,delayed 81 mg PO QAM #30 tab 03/03/21 Rx release potassium chloride 20 mEq 20 meq PO QAM #30 tab 03/03/21 Rx tablet,extended release(part/cryst) Allergies Allergy/AdvReac Type Severity Reaction Status Date / Time bee venom protein (honey bee) Allergy Severe ANAPHYLAXIS-YELLOW Verified 02/26/21 19:22 JACKETS lorazepam AdvReac Mild oversedation Verified 02/26/21 19:22 from AWSS protocol Uncoded Nonscreenable Allergy Severe All Uncoded 02/26/21 19:22 Allergen IV's must be administered thru 0.2mic in-line filter Past Med/Surg History Medical History Acute hyponatremia Anemia Atrial fibrillation, new onset Elevated troponin Generalized muscle weakness Gout H/O alcohol dependence Hematuria Hypokalemia Lumbar radiculopathy Orthostasis PAF (paroxysmal atrial fibrillation) Right heart failure due to pulmonary hypertension Social History Smoking Status: Former smoker Tobacco Type: Cigarettes Second Hand Exposure: No; Do You Dip or Chew Tobacco: No; Tobacco Cessation Education Requested by Patient: No Hx Alcohol Use: Yes Alcohol type: beer Hx Substance Use: No Preferred Language: Maori Communication Ability: Effective Doll Dresser Required: No Beliefs That Will Affect Care: None marital status: Current Living Situation: Spouse How many Children do You have: 1 Other Information That Helps Us Care for You: No Feels Safe at Home: Yes Safety Concerns: Feels Safe At This Time Assistive Devices: Walker Review of Systems A total of 10 systems reviewed and were otherwise negative All systems reviewed & are unremarkable except as noted in HPI & below Physical Exam Vital Signs Vital Signs - 24 hr 06/06/21 19:59 06/06/21 20:32 06/06/21 22:25 Temperature 37.3 C Temperature Source Oral Pulse Rate 77 77 Pulse Rate [Left Apical] 79 Pulse Rhythm [Left Apical] Pulse Strength [Left Apical] Respiratory Rate 16 16 18 Respiratory Effort / Characteristics Non-Labored Spontaneous Non-Labored Spontaneous Respiratory Depth Normal Normal Respiratory Pattern Regular Regular Blood Pressure 131/38 L 104/39 L Blood Pressure [Right Arm] 113/40 L Blood Pressure Mean 69 60 Blood Pressure Mean [Right Arm] 64 Blood Pressure Position Lying Blood Pressure Position [Right Arm] Pulse Oximetry 97 97 97 Oxygen Delivery Method Nasal Cannula Room Air Oxygen Flow Rate 2 Sepsis Recent Fever Within 48 Hours No Sepsis New/Unexplained Change in Mental Status No Sepsis Action Taken by Nursing No Action Required Oxygen Flow Rate - Titration Pulse Oximetry Post Tiitration 06/07/21 00:36 06/07/21 01:36 Temperature Temperature Source Pulse Rate Pulse Rate [Left Apical] 69 Pulse Rhythm [Left Apical] Regular Pulse Strength [Left Apical] Normal Respiratory Rate 18 Respiratory Effort / Characteristics Non-Labored Respiratory Depth Normal Respiratory Pattern Regular Blood Pressure Blood Pressure [Right Arm] 121/69 Blood Pressure Mean Blood Pressure Mean [Right Arm] 86 Blood Pressure Position Blood Pressure Position [Right Arm] Lying Pulse Oximetry 87 L 98 Oxygen Delivery Method Room Air Nasal Cannula Oxygen Flow Rate 2 Sepsis Recent Fever Within 48 Hours Sepsis New/Unexplained Change in Mental Status Sepsis Action Taken by Nursing Oxygen Flow Rate - Titration 2 Pulse Oximetry Post Tiitration 95 GENERAL: alert, well appearing, well nourished, no distress, non-toxic HEAD: nc, wrapped with gauze dressing, obvious scalp hematoma noted posteriorly EYE EXAM: normal conjunctiva, PERRL and EOM's grossly intact OROPHARYNX: no exudate, no erythema, lips, buccal mucosa, and tongue normal and mucous membranes are moist NECK: supple, no nuchal rigidity, no adenopathy, non-tender, FROM LUNGS: Clear to auscultation. Normal chest wall mechanics, no w/r/r HEART: no murmurs, S1 normal and S2 normal CHEST WALL: No crepitus, no ecchymosis or evidence of trauma, no pain with palpation along the ribs bilaterally ABDOMEN: abdomen soft, non-tender, normo-active bowel sounds, no masses, no rebound or guarding. PELVIS: Stable to compression, no pain with palpation over the hips laterally BACK: Back is symmetrical on inspection and there is no deformity, no midline tenderness, no CVA tenderness. SKIN: no rashes and no bruising UPPER EXTREMITIES: upper extremities are grossly normal. FROM, nml pulses b/l. No deformities or evidence of trauma. No joint effusion LOWER EXTREMITIES: No pitting edema. FROM, nml pulses b/l. No deformities or evidence of trauma. No joint effusions. NEURO EXAM: Normal sensorium, cranial nerves II-XII grossly intact, normal speech, no gross weakness of arms, no gross weakness of legs. Gross sensation intact. Procedures Laceration Laceration 1: Site: scalp Size (cm): 2.7 Description: linear Depth: simple, single layer Local Anesthetic: lidocaine 1% and with epi Amount of anesthesia used (mL): 8 Pre-repair: wound explored and irrigated extensively Skin layer closed with: nylon Size (cm): 5-0 Number of sutures: 5 Technique: simple, interrupted Course Course 2215: Pt continues to deny any evolving symptoms. VS stable. Patient states he does where oxygen to sleep. 0052: Pt states he has a headache, denies pain anywhere else. 0100: Discussed with sonJayson. [phone] States he does have frequent falls, seems to have weakness in the legs. He has been encouraging instead to use his walker more recently. States he had heart surgery back in the fall, and initially seem to be doing well, however over time he noticed that he seemed to get weak with standing for prolonged periods and has fallen previously. He states more recently he has been using a cane. 0135: Discussed with Dr. Ybarra. On repeat exam, pt now with evolving ecchymosis to left lower/anterior ribs. 0140: SILVANO performed at bedside with [facility] chaperoning. No stool in vault. Mucous guaiac negative. Administered Medications Amiodarone HCl (Amiodarone 200 Mg Tab) 200 mg PO QAM [facility] Stop: 07/07/21 08:59 Last Admin: 06/07/21 08:55 Dose: 200 mg Documented by: [id number] Apixaban (Apixaban 5 Mg Tablet) 5 mg PO BID LARRY Stop: 07/07/21 08:59 Last Admin: 06/07/21 08:55 Dose: 5 mg Documented by: [id number] Aspirin (Aspirin 81 Mg Ectab) 81 mg PO DAILY LARRY Stop: 07/07/21 08:59 Last Admin: 06/07/21 08:55 Dose: 81 mg Documented by: [id number] Atorvastatin Calcium (Atorvastatin 20 Mg Tab) 20 mg PO QAM [facility] Stop: 07/07/21 08:59 Last Admin: 06/07/21 08:56 Dose: 20 mg Documented by: [id number] Ezetimibe (Ezetimibe 10 Mg Tablet) 10 mg PO QAM [facility] Stop: 07/07/21 08:59 Last Admin: 06/07/21 08:55 Dose: 10 mg Documented by: [id number] Finasteride (Finasteride 5 Mg Tab) 5 mg PO QAM [facility] Stop: 07/07/21 08:59 Last Admin: 06/07/21 08:56 Dose: 5 mg Documented by: [id number] Levetiracetam (Levetiracetam 500 Mg Tab) 500 mg PO Q12 [facility] Stop: 07/07/21 08:59 Last Admin: 06/07/21 20:06 Dose: 500 mg Documented by: [id number] Admin: 06/07/21 08:56 Dose: 500 mg Documented by: [id number] Metoprolol Succinate (Metoprolol Succ 25mg Ext Rel Tab) 75 mg PO BID [facility] Stop: 07/07/21 08:59 Last Admin: 06/07/21 20:06 Dose: 75 mg Documented by: [id number] Admin: 06/07/21 08:55 Dose: 75 mg Documented by: [id number] Potassium Chloride (Potassium Chloride 10 Meq Tabcr) 10 meq PO DAILY LARRY Stop: 07/07/21 08:59 Last Admin: 06/07/21 08:56 Dose: 10 meq Documented by: [id number] Terazosin HCl (Terazosin Hcl 5 Mg Cap) 10 mg PO [facility] Stop: 07/07/21 20:59 Last Admin: 06/07/21 20:06 Dose: 10 mg Documented by: [id number] Thiamine HCl ([facility] Hcl 100 Mg Tab) [facility] Stop: 07/07/21 08:59 Last Admin: 06/07/21 08:56 Dose: 100 mg Documented by: [id number] Vitamin D (Cholecalciferol 1,000 Units 25 Mcg Tab) 1,000 units PO [facility] Stop: 07/07/21 08:59 Last Admin: 06/07/21 08:55 Dose: 1,000 units Documented by: [id number] Discontinued Medications Acetaminophen (Ofirmev) 1,000 mg in 100 mls @ 400 mls/hr IV NOW STA Stop: 06/07/21 01:10 Last Infusion: 06/07/21 02:25 Dose: 0 mls/hr Documented by: [id number] Admin: 06/07/21 02:04 Dose: 400 mls/hr Documented by: [id number] Sodium Chloride (Nss 1000ml) 1,000 mls @ 80 mls/hr IV .[id number] LARRY Stop: 06/07/21 18:55 Last Infusion: 06/07/21 19:29 Dose: 0 mls/hr Documented by: [id number] Admin: 06/07/21 07:00 Dose: 80 mls/hr Documented by: [id number] Ioversol (Optiray 320 100ml) 95 ml IV ONCE ONE Stop: 06/07/21 02:48 Last Admin: 06/07/21 02:47 Dose: 95 ml Documented by: [id number] Lidocaine/Epinephrine (Lidocaine/Epinephrine 1% 20 Ml Vial) 20 ml INFIL NOW ONE Stop: 06/06/21 22:01 Last Admin: 06/06/21 22:15 Dose: 20 ml Documented by: [id number] Tranexamic Acid (Txa 10% Non-Iv Routes 100 Mg/Ml Vial) 1,000 mg TOP ONE ONE Stop: 06/06/21 22:01 Last Admin: 06/06/21 22:15 Dose: 1,000 mg Documented by: [id number] Critical Care Time Critical Care Time: Yes Total Critical Care Time: 46 Critical care of 46 min performed to assess and manage high likelihood of life- threatening trauma and anemia, involving labs and imaging performed with assessment to evaluate trauma and anemia diagnosis with frequent reassessment. This time includes bedside time, treatment discussions with patient/family/consultants, documentation time and excludes procedure time. Medical Decision Making Differential Diagnosis Differential diagnoses include major intracranial, cervical, spinal, thoracic, abdominal, pelvic and neurologic injury. Fracture, contusion, sprain, strain, laceration, abrasions included as well. Medical Records Attestation: I reviewed the patient's medical records. Home Medications Current Medication List: was personally reviewed by me Laboratory Data Attestation: I reviewed the patient's lab results. Result diagrams: 06/07/21 06:56 06/07/21 06:56 Lab Results 06/07/21 06/07/21 06/07/21 Range/Units 01:18 01:25 01:25 WBC 6.40 (4.8-10.8) K/uL RBC 2.71 L (4.7-6.1) M/uL Hgb 7.4 L (14.0-18.0) g/dL POC Hgb 7.1 L (14.0-18.0) g/dl Hct 22.8 L (42-52) % POC Hct 21 L (42-52) % MCV 84.1 (80-100) fL MCH 27.3 (25-34) pg MCHC 32.5 (32-36) g/dL RDW Std Deviation 51.8 H (36.4-46.3) fL RDW Coeff of Ruth 16.8 H (11.5-14.5) % Plt Count 200 (130-400) K/uL MPV 8.3 (7.4-10.4) fL Immature Gran % (Auto) 0.3 % Neut % (Auto) 65.4 % Lymph % (Auto) 17.2 % Kinney % (Auto) 16.1 % Eos % (Auto) 0.8 % Baso % (Auto) 0.2 % Neut # (Auto) 4.19 (1.4-6.5) K/uL Lymph # (Auto) 1.10 L (1.2-3.4) K/uL Kinney # (Auto) 1.03 H (0.11-0.59) K/uL Eos # (Auto) 0.05 (0-0.5) K/uL Baso # (Auto) 0.01 (0-0.2) K/uL Immature Gran # (Auto) 0.02 (0.00-0.02) K/uL RBC Morphology Unremarkable POC Sodium 133 L (135-144) mmol/L Sodium 131 L (136-145) mmol/L POC Potassium 3.7 (3.3-5.0) mmol/L Potassium 3.7 (3.5-5.1) mmol/L POC Chloride 98 L (101-112) mmol/L Chloride 101 (98-107) mmol/L Carbon Dioxide 24 (21-32) mmol/L POC Total CO2 22 L (24-31) mmol/L Anion Gap 6 (3-11) POC Anion Gap 17.0 (16-25) mmol/L POC BUN 19 H (7-18) mg/dl BUN 22 (6-23) mg/dl Creatinine 1.11 (0.6-1.4) mg/dl POC Creatinine 1.1 (0.6-1.3) mg/dl Est Cr Clr Drug Dosing 47.8 ml/min Est GFR ( Amer) 71.3 ml/min Est GFR (Non-Af Amer) 61.5 ml/min BUN/Creatinine Ratio 19.8 (10-20) Glucose 127 H (70-99(Fasting)) mg/dl POC Glucose (other) 131 H (70-99) mg/dl Calcium 7.6 L (8.5-10.1) mg/dl POC Ioniz Calcium Kemi 1.15 (1.12-1.32) mmol/l Magnesium 1.7 (1.7-2.4) mg/dl Total Bilirubin 0.8 (0.2-1.0) mg/dl AST 20 (13-39) U/L ALT 17 (7-52) U/L Alkaline Phosphatase 54 (34-104) U/L Troponin I 0.04 (0-0.04) ng/ml Total Protein 5.4 L (6.0-8.3) gm/dl Albumin 3.0 L (3.4-5.0) gm/dl Globulin 2.4 L (2.5-4.0) gm/dl Albumin/Globulin Ratio 1.3 (0.9-2) SARS-CoV-2, RNA, NAAT (NEGATIVE) 06/07/21 Range/Units 01:25 WBC (4.8-10.8) K/uL RBC (4.7-6.1) M/uL Hgb (14.0-18.0) g/dL POC Hgb (14.0-18.0) g/dl Hct (42-52) % POC Hct (42-52) % MCV (80-100) fL MCH (25-34) pg MCHC (32-36) g/dL RDW Std Deviation (36.4-46.3) fL RDW Coeff of Ruth (11.5-14.5) % Plt Count (130-400) K/uL MPV (7.4-10.4) fL Immature Gran % (Auto) % Neut % (Auto) % Lymph % (Auto) % Kinney % (Auto) % Eos % (Auto) % Baso % (Auto) % Neut # (Auto) (1.4-6.5) K/uL Lymph # (Auto) (1.2-3.4) K/uL Kinney # (Auto) (0.11-0.59) K/uL Eos # (Auto) (0-0.5) K/uL Baso # (Auto) (0-0.2) K/uL Immature Gran # (Auto) (0.00-0.02) K/uL RBC Morphology POC Sodium (135-144) mmol/L Sodium (136-145) mmol/L POC Potassium (3.3-5.0) mmol/L Potassium (3.5-5.1) mmol/L POC Chloride (101-112) mmol/L Chloride (98-107) mmol/L Carbon Dioxide (21-32) mmol/L POC Total CO2 (24-31) mmol/L Anion Gap (3-11) POC Anion Gap (16-25) mmol/L POC BUN (7-18) mg/dl BUN (6-23) mg/dl Creatinine (0.6-1.4) mg/dl POC Creatinine (0.6-1.3) mg/dl Est Cr Clr Drug Dosing ml/min Est GFR ( Amer) ml/min Est GFR (Non-Af Amer) ml/min BUN/Creatinine Ratio (10-20) Glucose (70-99(Fasting)) mg/dl POC Glucose (other) (70-99) mg/dl Calcium (8.5-10.1) mg/dl POC Ioniz Calcium Kemi (1.12-1.32) mmol/l Magnesium (1.7-2.4) mg/dl Total Bilirubin (0.2-1.0) mg/dl AST (13-39) U/L ALT (7-52) U/L Alkaline Phosphatase (34-104) U/L Troponin I (0-0.04) ng/ml Total Protein (6.0-8.3) gm/dl Albumin (3.4-5.0) gm/dl Globulin (2.5-4.0) gm/dl Albumin/Globulin Ratio (0.9-2) SARS-CoV-2, RNA, NAAT NEGATIVE (NEGATIVE) Imaging Data Radiologist's Impression: CT head: Impression: No intracranial hemorrhage or other acute intracranial abnormality. No skull base or calvarium fracture. Left parietal scalp hematoma. 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 Bilateral lens replacement. Radiologist: Amrit Acevedo MD CT C-spine: Impression: Postsurgical change related to prior anterior cervical discectomy and fusion at C5-C7 without evidence of complication. No fracture or traumatic malalignment of the cervical spine. Bulky calcification of the anterior longitudinal ligament as well as degenerative disc disease and facet arthrosis in the nonoperative cervical spine. Retropharyngeal course of the right common and internal carotid arteries. Radiologist: Amrit Acevedo MD CT pelvis: Impression: Diffusely decreased osseous mineralization with nondisplaced sacral fractures. Evaluation with MRI could be considered as clinically warranted. Ankylosis of the right sacroiliac joint. Degenerative changes of the sacroiliac joints, symphysis pubis, and femoral acetabular joints. Degenerative change in the lower lumbar spine. Vascular calcifications with stents. Markedly enlarged prostate gland which may be resulting in bladder outlet obstruction. Clinical correlation recommended. Radiologist: Amrit Acevedo MD CT abdomen and pelvis with contrast: Comparison: 02/28/2021. Cardiomegaly with coronary artery calcifications and pacemaker leads in place. Mild bilateral pleural effusions with lower lobe atelectasis. Fullness of markings through the subpleural and thickening of interstitium which may indicate interstitial lung disease or early congestive heart failure. Likely tiny cyst within the right liver lobe, measuring 4 mm. Otherwise normal liver, gallbladder and biliary system. Normal spleen and pancreas. Normal bilateral adrenal glands. There are at least 2 right-sided simple renal cysts, largest in the middle pole averaging approximately 4.1 cm. Mild right perinephric stranding otherwise normal right kidney. Mild left perinephric stranding otherwise normal left kidney. Decompressed stomach with no hiatal hernia. Nonspecific small bowel. Normal colon. Slightly over distended urinary bladder. Normal size of prostate gland with seed implants for the purpose of therapy. Small left-sided fat-containing inguinal hernia. Degenerative disease of the spine. Atherosclerotic disease of aorta with no aneurysm. Bilateral common iliac stents in place. Radiologist: Shital Shea MD ECG Data Attestation: I personally reviewed and interpreted this ECG as follows: Indication: + weakness Rate (beats per minute): 71 Rhythm: + other ECG Intervals/blocks: + IVCD and + Prolonged QT ECG [place]: + Normal ECG ST segments: + Nonspecific ST abnormalities Additional Comments: paced MDM Narrative THis is an elderly male who comes for evaluation after a fall at home. Patient with obvious head injury, denied any other pain or concern for injury. Given use of antiplatelet and anticoagulation therapy, pt sent for CT and xray imaging. Scalp laceration repaired. VS stable. Patient initially a difficult historian, however with additional beside discussion, he admits to additional falls and occasional weakness. I discussed with pt's son also who provided additional information. Given concern for weakness, labs sent which revealed anemia. SILVANO negative. Additional imaging performed due to appearance of additional evolving ecchymosis. Discussed sacral fx with radiology in addition. Patient continued to deny any additional pain, trouble breathing, or dizziness. Patient not ambulated in the department due to concern for weakness and sacral fx. He was moved to be in the same room with his and per his request, she was updated on his condition also. Discussed case with hospitalist for additional evaluation and mgmt. An order was placed for continuous cardiac monitoring. The monitor shows a rate of _78_ with _paced__ rhythm. Impression & Plan CHI (closed head injury), Anemia, Hematoma of scalp, Fall, Closed sacral fracture, Weakness Discharge Plan Visit Data Chief Complaint: Fall Stated Complaint: FALL/HIT HEAD ED Provider: Rhea Degroot Discharge Problem: CHI (closed head injury), Anemia, Hematoma of scalp, Fall, Closed sacral fracture, Weakness Patient Disposition: Admitted As Inpatient Discharge Instructions Interventions: ED Discharge Assessment Last Done: 06/07/21 06:29
[2021-06-07] MEDS ORDERED: ACETAMINOPHEN 1,000 MG/100 ML VIAL IV STA (00:56)
[2021-06-07 01:33] LABS: iSTAT Creatinine 1.1 mg/dl (0.6-1.3); iSTAT Hemoglobin 7.1 g/dl (14.0-18.0); iSTAT Ionized Calcium 1.15 mmol/l (1.12-1.32); iSTAT Potassium 3.7 mmol/L (3.3-5.0)
[2021-06-07 01:41] LABS: Basophils # (auto) 0.01 K/uL (0-0.2); Basophils % (auto) 0.2 %; Eosinophils # (auto) 0.05 K/uL (0-0.5); Eosinophils % (auto) 0.8 %; Hematocrit (blood only) 22.8 % (42-52); Hemoglobin 7.4 g/dL (14.0-18.0); Immature Granulocytes # (auto) 0.02 K/uL (0.00-0.02); Immature Granulocytes % (auto) 0.3 %; Lymphocytes % (auto) 17.2 %; Mean Corpuscular Hemoglobin 27.3 pg (25-34); Mean Corpuscular Hgb Conc 32.5 g/dL (32-36); Mean Corpuscular Volume 84.1 fL (80-100); Mean Platelet Volume 8.3 fL (7.4-10.4); Monocytes # (auto) 1.03 K/uL (0.11-0.59); Monocytes % (auto) 16.1 %; Neutrophils # (auto) 4.19 K/uL (1.4-6.5); Neutrophils % (auto) 65.4 %; Platelet Count 200 K/uL (130-400); RDW Coefficient of Variation 16.8 % (11.5-14.5); RDW Standard Deviation 51.8 fL (36.4-46.3); Red Blood Count 2.71 M/uL (4.7-6.1)
[2021-06-07 02:03] LABS: RBC Morphology Unremarkable; Troponin I 0.04 ng/ml (0-0.04)
[2021-06-07 02:10] LABS: Albumin Globulin Ratio 1.3 (0.9-2); BUN Creatinine Ratio 19.8 (10-20); Bilirubin,Total 0.8 mg/dl (0.2-1.0); Calcium 7.6 mg/dl (8.5-10.1); Creatinine Clr Calc Pharmacy 47.8 ml/min; Est GFR (African American) 71.3 ml/min; Est GFR (Non-African American) 61.5 ml/min; Globulin 2.4 gm/dl (2.5-4.0); Magnesium 1.7 mg/dl (1.7-2.4); Potassium 3.7 mmol/L (3.5-5.1); Total Protein 5.4 gm/dl (6.0-8.3)
[2021-06-07] MEDS ORDERED: OPTIRAY 320 100ml IV ONE (02:47)
[2021-06-07] MEDS ORDERED: SODIUM CHLORIDE 0.9% 1000ML 1,000 ML IV SCH (06:26)
[2021-06-07] MEDS ORDERED: NITROGLYCERIN SL 0.4 MG/TAB TAB SL PRN (06:26)
[2021-06-07] MEDS ORDERED: ONDANSETRON INJ 2 MG/ML 2 ML VIAL IV PRN (06:26)
[2021-06-07] MEDS ORDERED: POLYETHYLENE (MIRALAX) 17 GM PACK PO PRN (06:26)
--- NOTE | 2021-06-07 07:01 | CT Scan Report ---
CT SCAN OF THE BRAIN WITHOUT IV CONTRAST CLINICAL HISTORY: Fall. COMPARISON STUDY: CT of the brain dated 02/19/2021. TECHNIQUE: Unenhanced axial CT scan of the brain is performed from the vertex to the skull base. A do se lowering technique was utilized adhering to the principles of ALARA. FINDINGS: Brain parenchyma: There are age-related involutional changes noting moderate subcortical and periven tricular microangiopathic change. There is no hemorrhage, mass effect, or evidence of acute territori al ischemia by CT criteria. 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 Gra y-white matter differentiation is preserved. No extra-axial fluid collection is seen. Ventricles, sulci, cisterns: Prominent secondary to involutional change. Intracranial vasculature: There is atherosclerotic calcification of the cavernous carotid and vertebr al arteries. Calvarium: The skeletal structures are osteopenic. No depressed calvarial fracture is identified. Soft tissues: There is a posterior scalp contusion. Sinuses and mastoids: The paranasal sinuses are clear. The mastoid air cells are well pneumatized. Orbits: The bony orbits are grossly intact. There are bilateral ocular lens implants. IMPRESSION: 1. There is no hemorrhage, mass effect, or evidence of acute territorial ischemia by CT criteria. 2. Posterior scalp injury. ACT 112: Negative or not required by law. Electronically signed by: Ceasar Higgins M.D. 06/07/2021 7:00 AM
[2021-06-07 07:03] LABS: Appearance Urine Clear (Clear); Bacteria Urine Automated Negative (Negative); Bilirubin Urine Negative (Negative); Blood Urine 3+ (Negative); Color Urine Yellow; Epithelial Cell Urine Auto >30 /lpf (0-5); Glucose Urine UA Negative (Negative); Ketones Urine Negative (Negative); Leukocyte Esterase Urine 2+ (Negative); Nitrite Urine Negative (Negative); Protein Urine 1+ (Negative); RBC Urine Automated >30 /hpf (0-4); Urobilinogen Urine Negative (Negative); WBC Urine Automated >30 /hpf (0-5); pH Urine 5.5 (4.5-7.5)
[2021-06-07 07:13] LABS: Basophils # (auto) 0.01 K/uL (0-0.2); Basophils % (auto) 0.2 %; Eosinophils # (auto) 0.16 K/uL (0-0.5); Eosinophils % (auto) 2.8 %; Hematocrit (blood only) 22.6 % (42-52); Hemoglobin 7.3 g/dL (14.0-18.0); Immature Granulocytes # (auto) 0.03 K/uL (0.00-0.02); Immature Granulocytes % (auto) 0.5 %; Lymphocytes # (auto) 1.03 K/uL (1.2-3.4); Lymphocytes % (auto) 18.1 %; Mean Corpuscular Hemoglobin 27.3 pg (25-34); Mean Corpuscular Hgb Conc 32.3 g/dL (32-36); Mean Corpuscular Volume 84.6 fL (80-100); Mean Platelet Volume 8.3 fL (7.4-10.4); Monocytes # (auto) 0.96 K/uL (0.11-0.59); Monocytes % (auto) 16.9 %; Neutrophils # (auto) 3.49 K/uL (1.4-6.5); Neutrophils % (auto) 61.5 %; Platelet Count 194 K/uL (130-400); RDW Coefficient of Variation 16.9 % (11.5-14.5); RDW Standard Deviation 52.6 fL (36.4-46.3); Red Blood Count 2.67 M/uL (4.7-6.1); White Blood Count 5.68 K/uL (4.8-10.8)
--- NOTE | 2021-06-07 07:16 | CT Scan Report ---
CT SCAN OF THE CERVICAL SPINE CLINICAL HISTORY: Trauma. Fall. COMPARISON STUDY: CT of the cervical spine dated 02/22/2013. TECHNIQUE: CT scan of the cervical spine is performed from the skull base to the upper thoracic spine . Images are reviewed in the axial, sagittal, and coronal planes. IV contrast was not administered fo r this examination. A dose lowering technique was utilized adhering to the principles of ALARA. CT DOSE: 1147.00 mGy.cm FINDINGS: Skeletal structures: The skeletal structures are osteopenic. There is no evidence of fracture or subl uxation involving the cervical spine. Vertebral body height and alignment are maintained. There is po stoperative change from anterior fusion seen at C5-C7. Anterior osteophytes are seen throughout. Ther e is straightening of the cervical lordosis. The odontoid process and lateral masses are intact. The atlantoaxial articulation is preserved noting advanced productive degenerative change. The spinous pr ocesses appear intact. Intervertebral discs: There has been discectomy at C5-C6 and C6-C7. Mild disc space narrowing is note d at the remaining cervical levels. Central canal: A posterior disc osteophyte complex at C3-C4 may contribute to mild acquired compromis e of the central canal. Soft tissues: The prevertebral and paraspinous soft tissues are within normal limits. Pacemaker leads are seen at the left thoracic inlet. There is atherosclerotic calcification of the carotid bulbs. Calvarium: The visualized calvarium at the skull base appears intact. Brain parenchyma: Partially visualized brain parenchyma at the skull base is within normal limits not ing age-related involutional change. Sinuses and mastoids: The visualized paranasal sinuses are clear. There are small bilateral mastoid e ffusions. Lung apices: Intralobular septal thickening is noted in the upper lobes. IMPRESSION: 1. There is no evidence of fracture or subluxation involving the cervical spine. 2. Osteopenia with spondylotic and postoperative changes as above. 3. Intralobular septal thickening is noted in the upper lobes. This can be seen with acute versus chr onic congestive change and clinical correlation will be required. ACT 112: Negative or not required by law. Electronically signed by: Ceasar Higgins M.D. 06/07/2021 7:15 AM
--- NOTE | 2021-06-07 07:23 | XRay Report ---
SINGLE VIEW CHEST CLINICAL HISTORY: Fall. FINDINGS: An AP, portable, upright chest radiograph is compared to study dated 02/20/2021. Correlatio n is made with chest CT dated 02/26/2021. The examination is degraded by portable technique and apica l lordotic positioning. A 2-lead cardiac pacemaker is from previous. There is evidence of previous ca rdiac valve surgery. The heart is enlarged noting atherosclerotic calcification of the thoracic aorta . There is pulmonary vascular congestion. Airspace opacities are seen throughout both lungs. No large pleural effusion or pneumothorax is identified. The skeletal structures are osteopenic. The bony tho rax is grossly intact. Fusion hardware is noted in the lower cervical spine. IMPRESSION: 1. Cardiomegaly and cardiac pacemaker with evidence of congestive failure. 2. Bilateral airspace opacities likely represent pulmonary edema. Correlate clinically for evidence o f a superimposed infectious/inflammatory pneumonitis. Radiographic follow-up to resolution is recomme nded ACT 112: Negative or not required by law. Electronically signed by: Ceasar Higgins M.D. 06/07/2021 7:22 AM
[2021-06-07 07:37] LABS: BUN Creatinine Ratio 19.2 (10-20); Calcium 7.9 mg/dl (8.5-10.1); Est GFR (African American) 77.1 ml/min; Est GFR (Non-African American) 66.6 ml/min; Magnesium 1.8 mg/dl (1.7-2.4); Potassium 3.7 mmol/L (3.5-5.1)
[2021-06-07 07:53] LABS: Ferritin 312.9 ng/ml (8-388)
[2021-06-07 08:08] LABS: Folate (Folic Acid) 18.91 ng/ml (>5.38)
--- NOTE | 2021-06-07 08:16 | CT Scan Report ---
CT SCAN OF THE PELVIS WITHOUT IV CONTRAST CLINICAL HISTORY: Trauma. COMPARISON STUDY: Pelvic radiograph dated 06/06/2021. Pelvic CT dated 02/28/2021. TECHNIQUE: CT scan of the pelvis is performed from the pelvic inlet to the proximal femora. Images ar e reviewed in the axial, sagittal, and coronal planes. IV contrast was not administered for this exam ination. A dose lowering technique was utilized adhering to the principles of ALARA. CT DOSE: 999.00 mGy.cm FINDINGS: The skeletal structures are osteopenic. There is a fracture of S3 that is only seen on the sagittal series. No additional fracture is seen involving the hips or bony pelvis. No lytic or blasti c lesion is seen. There is no evidence of avascular necrosis of the proximal femora. Moderate arthrit ic change and degenerative joint space narrowing is seen in both hips. Degenerative change and partia l fusion is noted in the right sacroiliac joint. Degenerative change is also seen at the pubic symphy sis. There is generalized and symmetric atrophy of the regional musculature. The bladder is distended but otherwise normal in appearance. The prostate gland is mildly enlarged and heterogeneous noting m etallic implants in place. No intraperitoneal free air or free fluid is seen in the pelvis. There are bilateral iliac artery and left femoral artery stents. No pelvic sidewall or inguinal lymphadenopath y is seen. Imaged portions of the small bowel and colon show no evidence of obstruction. IMPRESSION: 1. Fracture of S3 which is only seen on the sagittal series. 2. No additional fracture is identified involving the hips or bony pelvis. ACT 112: Negative or not required by law. Dictated: 06/07/2021 7:31 AM Transcribed: 06/07/2021 8:07 AM Flavia [id number] DONNA_Analy Electronically signed by: Ceasar Higgins M.D. 06/07/2021 8:15 AM
--- NOTE | 2021-06-07 08:18 | XRay Report ---
SINGLE VIEW PELVIS CLINICAL HISTORY: Trauma. FINDINGS: 2 AP supine pelvic radiographs are correlated with pelvic CT dated 02/28/2021. The skeletal structures are osteopenic. There is no radiographic evidence of acute fracture involving the hips or bony pelvis. Moderate degenerative joint space narrowing and arthritic change is seen in the hips. D egenerative change is also noted in the sacroiliac joints and pubic symphysis. Enthesophytes arise fr om the anterior superior iliac spines. Lumbosacral spondylosis is partially visualized. Iliac artery stents and left femoral artery stents are in place. The overlying soft tissues are within normal limi ts. IMPRESSION: No acute bony abnormality is identified. Electronically signed by: Ceasar Higgins M.D. 06/07/2021 8:17 AM
--- NOTE | 2021-06-07 08:30 | CT Scan Report ---
CT SCAN OF THE ABDOMEN AND PELVIS WITH IV CONTRAST CLINICAL HISTORY: Trauma. Left flank ecchymosis. COMPARISON STUDY: Pelvic CT performed 06/06/2021. Abdominal CT dated 02/28/2021 TECHNIQUE: Following the IV administration of 95 cc of Optiray 320, CT scan of the abdomen and pelvi s is performed from the lung bases to the proximal femora. Images are reviewed in the axial, sagittal , and coronal planes. IV contrast was administered without complication. A dose lowering technique wa s utilized adhering to the principles of ALARA. CT DOSE: 561.70 mGy.cm FINDINGS: Lung bases: The heart is enlarged noting trace pericardial effusion. There is evidence of previous ao rtic valve surgery. Pacemaker leads are in place. The coronary arteries and mitral annulus are densel y calcified. There are trace pleural effusions with dependent atelectasis. Intralobular septal thicke rodrigue is noted at both lung bases. A small hiatal hernia is observed. Liver: The contrast-enhanced liver is normal in size, contour, and attenuation. There is no intrahepa tic biliary ductal dilatation. The hepatic veins and portal veins are patent. Gallbladder: Unremarkable. Spleen: Normal in size and attenuation. Pancreas: The pancreas is atrophic a 12 mm cystic lesion in the pancreatic neck is unchanged and typi carol for a sidebranch IPMN. Adrenal glands: Unremarkable. Kidneys: The contrast enhanced kidneys demonstrate cortical atrophy and are without hydronephrosis. T he kidneys enhance symmetrically. 2 right renal cysts measure up to 3.7 cm. Abdominal vasculature: The abdominal aorta is normal in course and caliber noting advanced atheroscle rotic calcification. Bilateral iliac artery stents are in place. There is also a left femoral artery stent. Bowel: There is mild colonic diverticulosis without CT evidence of acute diverticulitis. No bowel obs truction is identified. The appendix is nonvisualized. Peritoneum: There is no intraperitoneal free air or abdominal ascites. A small fat-containing umbilic al hernia is noted. Lymphadenopathy: None. Pelvic viscera: The prostate gland is mildly enlarged and heterogeneous with metallic implants in anna ce. The bladder is distended but otherwise normal in appearance. Postoperative change is noted in the left groin. Skeletal structures: The skeletal structures are osteopenic. There is moderate lumbosacral spondylosi s. Degenerative changes noted in the sacroiliac joints with partial fusion on the right. A fracture o f S3 is again noted. This is only seen on the sagittal reformats. No additional acute fracture is norman ntified. No lytic or blastic lesions are seen. There are healed left posterior rib fractures. IMPRESSION: 1. There is no evidence of solid organ injury in the abdomen or pelvis. 2. A nondisplaced fracture of S3 is again noted. 3. Cardiomegaly and trace pleural effusions. Intralobular septal thickening suggests congestive humphrey e/fluid overload and clinical correlation will be required. 4. Additional findings as above. ACT 112: Negative or not required by law. Electronically signed by: Ceasar Higgins M.D. 06/07/2021 8:28 AM
[2021-06-07] MEDS: ASPIRIN 81 MG ECTAB PO SCH (08:55)
[2021-06-07] MEDS: AMIODARONE 200 MG TAB PO SCH (08:55)
[2021-06-07] MEDS: METOPROLOL SUCC 25MG EXT REL TAB PO SCH ×2 (08:55→20:06)
[2021-06-07] MEDS: EZETIMIBE 10 MG TABLET PO SCH (08:55)
[2021-06-07] MEDS: CHOLECALCIFEROL 1,000 UNITS 25 MCG TAB PO SCH (08:55)
[2021-06-07] MEDS: FINASTERIDE 5 MG TAB PO SCH (08:56)
[2021-06-07] MEDS: THIAMINE HCL 100 MG TAB PO SCH (08:56)
[2021-06-07] MEDS: levETIRAcetam 500 MG TAB PO SCH ×2 (08:56→20:06)
[2021-06-07] MEDS: ATORVASTATIN 20 MG TAB PO SCH (08:56)
[2021-06-07] MEDS: POTASSIUM CHLORIDE 10 MEQ TABCR PO SCH (08:56)
[2021-06-07] MEDS ORDERED: APIXABAN 5 MG TABLET PO SCH (09:00)
--- NOTE | 2021-06-07 11:45 | History and Physical Report ---
DATE OF ADMISSION: 06/07/2021. CHIEF COMPLAINT: Fall. HISTORY OF PRESENT ILLNESS: This is an 80-year-old male with past medical history significant for hyperlipidemia, history of carotid stenosis, right heart failure, cor pulmonale, chronic paroxysmal atrial fibrillation, hypertension, atrial septal defect secundum s/p repair, nonrheumatic aortic valve stenosis, moderate malnutrition, slow transit constipation, history of prostate cancer s/p surgery and radiation,, chronic kidney disease stage III, generalized seizures, lumbar radiculopathy, anemia of chronic kidney disease, history of hematuria who lives at home with his , comes with a fall, which seems to be a mechanical fall. He was trying to bend and go to fix something and place it in the refrigerator, when he lost balance and fell backwards, hit his head, did not lose consciousness. Blood was coming on his head. He is on blood thinners due to his heart disease and he was brought in here and had 5 sutures in the back of his head. Son told the ER physician that he is lately falling frequently and is having imbalance. His labs showed hemoglobin of 7.4. The patient has baseline hemoglobin around 9-10. Currently, the patient is very sleepy, very hard to wake him up and could not get much history from the patient. Currently denies any headache, denies chest pain, denies any shortness of breath, denies any nausea or vomiting, denies any abdominal pain, denies any diarrhea or constipation, denies any blood in stool or black stools. Afebrile, hemodynamically stable. ALLERGIES: BEE VENOM, LORAZEPAM. PAST MEDICAL HISTORY: As mentioned above. PAST SURGICAL HISTORY: Aortogram of bilateral lower extremity, colonoscopy, left and right heart catheterization, left iliofemoral endarterectomy with pericardial patch, cervical and lumbar laminectomy on the left side, dual chamber pacemaker insertion, external right iliac angioplasty, lumbar hemilaminectomy, prostatic needle punch biopsy, appendectomy, tonsillectomy, removal of iliac spine, replacement of aortic valve TAVR, sacroiliac joint injection, left thromboendarterectomy. MEDICATIONS: As per [facility], the patient is on Lasix 20 mg 3 times a week, Toprol- XL 75 mg p.o. b.i.d., Eliquis 5 mg p.o. b.i.d., aspirin 81 mg p.o. daily, potassium chloride 10 mEq p.o. daily, finasteride 5 mg p.o. daily, amiodarone 200 mg p.o. daily, thiamine 100 mg p.o. daily, Keppra 500 mg p.o. b.i.d., Zetia 10 mg p.o. daily, terazosin 10 mg p.o. daily, atorvastatin 20 mg p.o. daily, epinephrine p.r.n., vitamin D 2000 units p.o. daily, oxygen while sleeping. FAMILY HISTORY: Significant for father had throat and prostate cancer; brother has skin cancer; mother had heart disorder and lung disorder. SOCIAL HISTORY: , lives with . Quit smoking in 1978, smoked 2 packs a day. No alcohol currently. No drug use. REVIEW OF SYSTEMS: Could not get review of systems as the patient is very drowsy and sleepy. As per HPI. PHYSICAL EXAMINATION: GENERAL: The patient is drowsy, but arousable, not in acute distress. VITAL SIGNS: Temperature 37.3, pulse 69, respiratory rate 18, blood pressure 121/69, oxygen 98% on 2 liters. HEENT: Sutures in the occipital region. No facial droop seen. NECK: No JVD or neck masses. CARDIOVASCULAR: S1 and S2 heard. Regular rate and rhythm. No murmur, no gallop. RESPIRATORY: Normal AP diameter. No accessory muscle use. No wheezing, no crackles. ABDOMEN: Soft, bowel sounds present, nontender, no distention. CENTRAL NERVOUS SYSTEM: Drowsy, arousable, answers simple questions, obeys simple commands. Moves extremities. EXTREMITIES: No edema, no erythema seen. LABORATORY DATA: WBC 6.4, hemoglobin 7.4, hematocrit 22.8, platelets 200. Sodium 131, potassium 3.7, chloride 98, bicarbonate 24, BUN 22, creatinine 1.1, serum glucose 127, calcium 7.6, magnesium 1.7, total bilirubin 0.8, AST 20, ALT 17, alkaline phosphatase 54. Troponin I of 0.04. SARS-CoV-2 RNA negative. IMAGING: CT of abdomen and pelvis: Preliminary report showing renal cyst, Pelvic CT: Diffusely decreased osseous mineralization with nondisplaced sacral fractures. Evaluation with MRI is considered. Markedly enlarged prostate, which may result in bladder outlet obstruction. CT of the head: No acute findings. Chest x-ray: Probable mild congestion. Cervical spine CT: No acute fractures by preliminary report. EKG: Atrial sensed, ventricular paced rhythm at a rate of 71. ASSESSMENT AND PLAN: An 80-year-old male presents with fall. 1. Fall: Has sutures in the back of the head and also sacral fractures. Consult orthopedics. Physical therapy and occupational therapy as tolerated. Gentle fluids. 2. Severe aortic stenosis, status post transcatheter aortic valve replacement, 3.right-sided heart failure, cor pulmonale: Continue home Lasix, metoprolol succinate, monitor for any volume overload. 4. Anemia: Hemoglobin 7.4, baseline hemoglobin 9-10. History of hematuria. Stool for Hemoccult is negative in the Emergency Room. We will follow stool for Hemoccult. Iron studies, vitamin B12, folate levels. We will follow urinalysis. Could not get blood consent currently as patient is drowsy and sleepy, can get it in the a.m. Monitor laboratories. 4. History of atrial fibrillation: Continue his amiodarone, Toprol and Eliquis for now. If any signs of bleeding, can hold the Eliquis. 5. Hypertension: Continue his Toprol-XL. 6. History of benign prostatic hypertrophy: Continue terazosin and finasteride. He needs to follow up with urology. Monitor for any urinary retention. 7. History of seizures: Continue his Keppra. 8. Hyperlipidemia: Continue his statin. 9. History of peripheral vascular disease, carotid endarterectomy: On aspirin, Zetia and statin. 10. History of constipation: We need to monitor. 11. History of prostate cancer.s/p surgery and radiation 12. Deep venous thrombosis prophylaxis: The patient is on Eliquis. DISPOSITION: Closely monitor in the [employer]tele. PT/OT prior to discharge. Social service to help with discharge planning. Job ID: [id number] [facility]
--- NOTE | 2021-06-07 12:18 | Electrocardiogram Report ---
Test Reason : Blood Pressure : / mmHG Vent. Rate : 071 BPM Atrial Rate : 071 BPM P-R Int : 150 ms QRS Dur : 136 ms QT Int : 496 ms P-R-T Axes : 039 128 045 degrees QTc Int : 538 ms Atrial-sensed ventricular-paced rhythm Abnormal ECG When compared with ECG of 28-FEB-2021 12:57, Electronic ventricular pacemaker has replaced Sinus rhythm Confirmed by Maximiliano Barba ([id number]) on 06/07/2021 12:18:24 PM Referred By: REFERRED SELF Confirmed By:Wili Barba
--- NOTE | 2021-06-07 14:26 | Orthopedic Consultation ---
Date of Consultation June 07, 2021 Assessment & Plan (1) Closed sacral fracture: X-rays reviewed. Nonoperative S3 fracture as noted below. Nondisplaced and minimal only seen on the sagittal view. Patient may be weightbearing as tolerated. Lidoderm patch to sacral area if needed. Patient can follow-up with Dr. Sanford in the future as outpatient if his pain does not dissipate or worsens. History of Present Illness Reason for Consultation: Sacral Fracture Attending Physician: Joe Lee MD History of Present Illness Pt is an 80-year-old male with past medical history significant for hyperlipidemia, history of carotid stenosis, right heart failure, cor pulmonale, chronic paroxysmal atrial fibrillation, hypertension, atrial septal defect secundum, nonrheumatic aortic valve stenosis, constipation, history of prostate cancer, chronic kidney disease stage III, generalized seizures, lumbar radiculopathy, anemia of chronic kidney disease, history of hematuriathat came into the emergency room here at [facility] after a mechanical fall at home. The patient was apparently bending down to try and fix something on his refrigerator when he lost his balance. He fell backwards and bumped his head. He denies loss of consciousness. He apparently had a laceration on the back of his head and was bleeding a fair amount. Patient is currently on blood thinners. He was brought to the emergency room and seen by the staff. While in the emergency room, his family had mentioned that he was having frequent falls at home. Blood work showed that he had a hemoglobin of 7.4 and he was admitted for further care. Patient was having some mild discomfort around his sacrum. Plain films were negative for fracture. CT of his pelvis however did show on one sagittal view a small nondisplaced fracture at S3. We have been asked to see him for this. Allergies Allergy/AdvReac Type Severity Reaction Status Date / Time bee venom protein (honey bee) Allergy Severe ANAPHYLAXIS-YELLOW Verified 02/26/21 19:22 JACKETS lorazepam AdvReac Mild oversedation Verified 02/26/21 19:22 from AWSS protocol Uncoded Nonscreenable Allergy Severe All Uncoded 02/26/21 19:22 Allergen IV's must be administered thru 0.2mic in-line filter Home Medications Medication Instructions Recorded Confirmed Type amoxicillin 500 mg capsule 2,000 mg PO DIRECTED PRN 02/18/21 02/26/21 History ascorbic acid (vitamin C) 500 mg 500 mg PO DAILY 02/18/21 02/26/21 History tablet (Vitamin C) atorvastatin 20 mg tablet 20 mg PO HS 02/18/21 02/26/21 History calcium carbonate 600 mg-vitamin 1 cap PO DAILY 02/18/21 02/26/21 History D3 5 mcg (200 unit) capsule (Calcium 600 + D(3)) cholecalciferol (vitamin D3) 50 50 mcg PO DAILY 02/18/21 02/26/21 History mcg (2,000 unit) capsule (Vitamin D3) coQ10 (ubiquinol) 200 mg capsule 200 mg PO DAILY 02/18/21 02/26/21 History epinephrine 0.3 mg/0.3 mL 0.3 mg IM DIRECTED PRN 02/18/21 02/26/21 History injection, auto-injector (EpiPen) ezetimibe 10 mg tablet 10 mg PO DAILY 02/18/21 02/26/21 History furosemide 40 mg tablet 40 mg PO BID 02/18/21 02/26/21 History gabapentin 400 mg capsule 400 mg PO TID 02/18/21 02/26/21 History levetiracetam 500 mg tablet 500 mg PO BID 02/18/21 02/26/21 History multivitamin 1 tab PO DAILY 02/18/21 02/26/21 History psyllium seed (sugar) oral powder 1 tbsp PO DAILY PRN 02/18/21 02/26/21 History (Metamucil (sugar)) sildenafil (pulm.hypertension) 20 20 mg PO BID 02/18/21 02/26/21 History mg tablet terazosin 10 mg capsule 10 mg PO HS 02/18/21 02/26/21 History metoprolol tartrate 50 mg tablet 50 mg PO TID 02/26/21 02/26/21 History thiamine HCl (vitamin B1) 100 mg 100 mg PO DAILY 02/26/21 02/26/21 History tablet (Vitamin B-1) amiodarone 200 mg tablet 200 mg PO QAM #30 tab 03/03/21 Rx aspirin 81 mg tablet,delayed 81 mg PO QAM #30 tab 03/03/21 Rx release potassium chloride 20 mEq 20 meq PO QAM #30 tab 03/03/21 Rx tablet,extended release(part/cryst) Patient History Medical History Acute hyponatremia Anemia Atrial fibrillation, new onset Elevated troponin Generalized muscle weakness Gout H/O alcohol dependence Hematuria Hypokalemia Lumbar radiculopathy Orthostasis PAF (paroxysmal atrial fibrillation) Right heart failure due to pulmonary hypertension Social History Smoking Status: Former smoker Tobacco Type: Cigarettes Second Hand Exposure: No; Do You Dip or Chew Tobacco: No; Tobacco Cessation Education Requested by Patient: No Hx Alcohol Use: Yes Alcohol type: beer Hx Substance Use: No Preferred Language: Luxembourgish Communication Ability: Effective 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 He is sleeping upon arrival but is easily awoken. Patient follows commands well. He is alert and oriented x3. No acute distress. Pleasant cooperative. He currently denies much in the way of pelvic pain. He states that he does have some mild discomfort near the coccyx. Patient is able to turn on his own side fairly quickly. Palpation of the sacral area does proved to be only mildly tender at the distal portion of the sacrum. No overt swelling noted. Upon having him lie supine, he can actively go through range of motion of his left and right hips without any hip or groin pain. Denies pain in the hips, knees, ankles. Range of motion within normal limits. Upper extremities are unaffected and he is nontender at the shoulders, elbows, and wrists. No gross motor or sensory loss seen at this time. Results & Data ([facility]) Vital Signs (Past 12 Hours) Vital Signs Temp Pulse Pulse Pulse Resp BP BP 06/07/21 10:58 80 18 102/56 L 06/07/21 10:57 71 06/07/21 09:37 36.6 C 68 20 147/63 H 06/07/21 08:28 06/07/21 08:13 61 18 139/67 01/25/22 08:00 60 16 139/67 01/25/22 06:29 61 16 121/69 06/07/21 06:19 61 16 121/69 06/07/21 03:55 66 16 121/69 Pulse Ox Pulse Ox 06/07/21 10:58 92 06/07/21 10:57 06/07/21 09:37 91 06/07/21 08:28 100 06/07/21 08:13 100 06/07/21 08:00 100 06/07/21 06:29 96 06/07/21 06:19 94 06/07/21 03:55 97 Diagnostic Findings Laboratory Results WBC 5.68 K/uL (4.8-10.8) 06/07/21 06:56 RBC 2.67 M/uL (4.7-6.1) L 06/07/21 06:56 Hgb 7.3 g/dL (14.0-18.0) L 06/07/21 06:56 POC Hgb 7.1 g/dl (14.0-18.0) L 06/07/21 01:18 Hct 22.6 % (42-52) L 06/07/21 06:56 POC Hct 21 % (42-52) L 06/07/21 01:18 MCV 84.6 fL (80-100) 06/07/21 06:56 MCH 27.3 pg (25-34) 06/07/21 06:56 MCHC 32.3 g/dL (32-36) 06/07/21 06:56 RDW Std Deviation 52.6 fL (36.4-46.3) H 06/07/21 06:56 RDW Coeff of Ruth 16.9 % (11.5-14.5) H 06/07/21 06:56 Plt Count 194 K/uL (130-400) 06/07/21 06:56 MPV 8.3 fL (7.4-10.4) 06/07/21 06:56 Immature Gran % (Auto) 0.5 % 06/07/21 06:56 Neut % (Auto) 61.5 % 06/07/21 06:56 Lymph % (Auto) 18.1 % 06/07/21 06:56 Braxton % (Auto) 16.9 % 06/07/21 06:56 Eos % (Auto) 2.8 % 06/07/21 06:56 Baso % (Auto) 0.2 % 06/07/21 06:56 Neut # (Auto) 3.49 K/uL (1.4-6.5) 06/07/21 06:56 Lymph # (Auto) 1.03 K/uL (1.2-3.4) L 06/07/21 06:56 Braxton # (Auto) 0.96 K/uL (0.11-0.59) H 06/07/21 06:56 Eos # (Auto) 0.16 K/uL (0-0.5) 06/07/21 06:56 Baso # (Auto) 0.01 K/uL (0-0.2) 06/07/21 06:56 Immature Gran # (Auto) 0.03 K/uL (0.00-0.02) H 06/07/21 06:56 RBC Morphology Unremarkable 06/07/21 01:25 POC Sodium 133 mmol/L (135-144) L 06/07/21 01:18 Sodium 135 mmol/L (136-145) L 06/07/21 06:56 POC Potassium 3.7 mmol/L (3.3-5.0) 06/07/21 01:18 Potassium 3.7 mmol/L (3.5-5.1) 06/07/21 06:56 POC Chloride 98 mmol/L (101-112) L 06/07/21 01:18 Chloride 104 mmol/L (98-107) 06/07/21 06:56 Carbon Dioxide 24 mmol/L (21-32) 06/07/21 06:56 POC Total CO2 22 mmol/L (24-31) L 06/07/21 01:18 Anion Gap 7 (3-11) 06/07/21 06:56 POC Anion Gap 17.0 mmol/L (16-25) 06/07/21 01:18 POC BUN 19 mg/dl (7-18) H 06/07/21 01:18 BUN 20 mg/dl (6-23) 06/07/21 06:56 Creatinine 1.04 mg/dl (0.6-1.4) 06/07/21 06:56 POC Creatinine 1.1 mg/dl (0.6-1.3) 06/07/21 01:18 Est Cr Clr Drug Dosing 51.0 ml/min 06/07/21 06:56 Est GFR ( Amer) 77.1 ml/min 06/07/21 06:56 Est GFR (Non-Af Amer) 66.6 ml/min 06/07/21 06:56 BUN/Creatinine Ratio 19.2 (10-20) 06/07/21 06:56 Glucose 115 mg/dl (70-99(Fasting)) H 06/07/21 06:56 POC Glucose (other) 131 mg/dl (70-99) H 06/07/21 01:18 Calcium 7.9 mg/dl (8.5-10.1) L 06/07/21 06:56 POC Ioniz Calcium Kemi 1.15 mmol/l (1.12-1.32) 06/07/21 01:18 Magnesium 1.8 mg/dl (1.7-2.4) 06/07/21 06:56 Iron 15 mcg/dl (35-175) L 06/07/21 06:56 Unsaturated IBC 174 mcg/dl (155-355) 06/07/21 06:56 Ferritin 312.9 ng/ml (8-388) 06/07/21 06:56 Total Bilirubin 0.8 mg/dl (0.2-1.0) 06/07/21 01:25 AST 20 U/L (13-39) 06/07/21 01:25 ALT 17 U/L (7-52) 06/07/21 01:25 Alkaline Phosphatase 54 U/L (34-104) 06/07/21 01:25 Troponin I 0.04 ng/ml (0-0.04) 06/07/21 01:25 Total Protein 5.4 gm/dl (6.0-8.3) L 06/07/21 01:25 Albumin 3.0 gm/dl (3.4-5.0) L 06/07/21 01:25 Globulin 2.4 gm/dl (2.5-4.0) L 06/07/21 01:25 Albumin/Globulin Ratio 1.3 (0.9-2) 06/07/21 01:25 Vitamin B12 294 pg/ml (211-911) 06/07/21 06:56 Folate 18.91 ng/ml (>5.38) 06/07/21 06:56 Urine Color Yellow 06/07/21 06:40 Urine Appearance Clear (Clear) 06/07/21 06:40 Urine pH 5.5 (4.5-7.5) 06/07/21 06:40 Ur Specific Ararat 1.020 (1.000-1.030) 06/07/21 06:40 Urine Protein 1+ (Negative) H 06/07/21 06:40 Urine Glucose (UA) Negative (Negative) 06/07/21 06:40 Urine Ketones Negative (Negative) 06/07/21 06:40 Urine Blood 3+ (Negative) H 06/07/21 06:40 Urine Nitrite Negative (Negative) 06/07/21 06:40 Urine Bilirubin Negative (Negative) 06/07/21 06:40 Urine Urobilinogen Negative (Negative) 06/07/21 06:40 Ur Leukocyte Esterase 2+ (Negative) H 06/07/21 06:40 Urine WBC (Auto) >30 /hpf (0-5) H 06/07/21 06:40 Urine RBC (Auto) >30 /hpf (0-4) H 06/07/21 06:40 U Hyaline Cast (Auto) 1-5 /lpf (0-5) 06/07/21 06:40 U Epithel Cells (Auto) >30 /lpf (0-5) H 06/07/21 06:40 Urine Bacteria (Auto) Negative (Negative) 06/07/21 06:40 SARS-CoV-2, RNA, NAAT NEGATIVE (NEGATIVE) 06/07/21 01:[address] 06/06/21 20:50 CT SCAN OF THE CERVICAL SPINE CLINICAL HISTORY: Trauma. Fall. COMPARISON STUDY: CT of the cervical spine dated 02/22/2013. TECHNIQUE: CT scan of the cervical spine is performed from the skull base to the upper thoracic spine. Images are reviewed in the axial, sagittal, and coronal planes. IV contrast was not administered for this examination. A dose lowering technique was utilized adhering to the principles of ALARA. CT DOSE: 1147.00 mGy.cm FINDINGS: Skeletal structures: The skeletal structures are osteopenic. There is no evidence of fracture or subluxation involving the cervical spine. Vertebral body height and alignment are maintained. There is postoperative change from anterior fusion seen at C5-C7. Anterior osteophytes are seen throughout. There is straightening of the cervical lordosis. The odontoid process and lateral masses are intact. The atlantoaxial articulation is preserved noting advanced productive degenerative change. The spinous processes appear intact. Intervertebral discs: There has been discectomy at C5-C6 and C6-C7. Mild disc space narrowing is noted at the remaining cervical levels. Central canal: A posterior disc osteophyte complex at C3-C4 may contribute to mild acquired compromise of the central canal. Soft tissues: The prevertebral and paraspinous soft tissues are within normal limits. Pacemaker leads are seen at the left thoracic inlet. There is atherosclerotic calcification of the carotid bulbs. Calvarium: The visualized calvarium at the skull base appears intact. Brain parenchyma: Partially visualized brain parenchyma at the skull base is within normal limits noting age-related involutional change. Sinuses and mastoids: The visualized paranasal sinuses are clear. There are small bilateral mastoid effusions. Lung apices: Intralobular septal thickening is noted in the upper lobes. IMPRESSION: 1. There is no evidence of fracture or subluxation involving the cervical spine. 2. Osteopenia with spondylotic and postoperative changes as above. 3. Intralobular septal thickening is noted in the upper lobes. This can be seen with acute versus chronic congestive change and clinical correlation will be required. ACT 112: Negative or not required by law. Electronically signed by: Ceasar Higgins M.D. 06/07/2021 7:15 AM Chest X-Ray 06/06/21 20:50 SINGLE VIEW CHEST CLINICAL HISTORY: Fall. FINDINGS: An AP, portable, upright chest radiograph is compared to study dated 02/20/2021. Correlation is made with chest CT dated 02/26/2021. The examination is degraded by portable technique and apical lordotic positioning. A 2-lead cardiac pacemaker is from previous. There is evidence of previous cardiac valve surgery. The heart is enlarged noting atherosclerotic calcification of the thoracic aorta. There is pulmonary vascular congestion. Airspace opacities are seen throughout both lungs. No large pleural effusion or pneumothorax is identified. The skeletal structures are osteopenic. The bony thorax is grossly intact. Fusion hardware is noted in the lower cervical spine. IMPRESSION: 1. Cardiomegaly and cardiac pacemaker with evidence of congestive failure. 2. Bilateral airspace opacities likely represent pulmonary edema. Correlate clinically for evidence of a superimposed infectious/inflammatory pneumonitis. Radiographic follow-up to resolution is recommended ACT 112: Negative or not required by law. Electronically signed by: Ceasar Higgins M.D. 06/07/2021 7:[address] 06/06/21 20:50 CT SCAN OF THE BRAIN WITHOUT IV CONTRAST CLINICAL HISTORY: Fall. COMPARISON STUDY: CT of the brain dated 02/19/2021. TECHNIQUE: Unenhanced axial CT scan of the brain is performed from the vertex to the skull base. A dose lowering technique was utilized adhering to the pr inciples of BETZY. FINDINGS: Brain parenchyma: There are age-related involutional changes noting moderate subcortical and periventricular microangiopathic change. There is no hemorrhage, mass effect, or evidence of acute territorial ischemia by CT criteria. 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 Hubbard-white matter differentiation is preserved. No extra-axial fluid collection is seen. Ventricles, sulci, cisterns: Prominent secondary to involutional change. Intracranial vasculature: There is atherosclerotic calcification of the cavernous carotid and vertebral arteries. Calvarium: The skeletal structures are osteopenic. No depressed calvarial fracture is identified. Soft tissues: There is a posterior scalp contusion. Sinuses and mastoids: The paranasal sinuses are clear. The mastoid air cells are well pneumatized. Orbits: The bony orbits are grossly intact. There are bilateral ocular lens implants. IMPRESSION: 1. There is no hemorrhage, mass effect, or evidence of acute territorial ischemia by CT criteria. 2. Posterior scalp injury. ACT 112: Negative or not required by law. Electronically signed by: Ceasar Higgins M.D. 06/07/2021 7:00 AM Pelvis X-Ray 06/06/21 20:50 SINGLE VIEW PELVIS CLINICAL HISTORY: Trauma. FINDINGS: 2 AP supine pelvic radiographs are correlated with pelvic CT dated 02/28/2021. The skeletal structures are osteopenic. There is no radiographic evidence of acute fracture involving the hips or bony pelvis. Moderate degenerative joint space narrowing and arthritic change is seen in the hips. Degenerative change is also noted in the sacroiliac joints and pubic symphysis. Enthesophytes arise from the anterior superior iliac spines. Lumbosacral spondylosis is partially visualized. Iliac artery stents and left femoral artery stents are in place. The overlying soft tissues are within normal limits. IMPRESSION: No acute bony abnormality is identified. Electronically signed by: Ceasar Higgins M.D. 06/07/2021 8:[address] 06/06/21 22:48 CT SCAN OF THE PELVIS WITHOUT IV CONTRAST CLINICAL HISTORY: Trauma. COMPARISON STUDY: Pelvic radiograph dated 06/06/2021. Pelvic CT dated 02/28/2021. TECHNIQUE: CT scan of the pelvis is performed from the pelvic inlet to the proximal femora. Images are reviewed in the axial, sagittal, and coronal planes. IV contrast was not administered for this examination. A dose lowering technique was utilized adhering to the principles of ALARA. CT DOSE: 999.00 mGy.cm FINDINGS: The skeletal structures are osteopenic. There is a fracture of S3 that is only seen on the sagittal series. No additional fracture is seen involving the hips or bony pelvis. No lytic or blastic lesion is seen. There is no evidence of avascular necrosis of the proximal femora. Moderate arthritic change and degenerative joint space narrowing is seen in both hips. Degenerative change and partial fusion is noted in the right sacroiliac joint. Degenerative change is also seen at the pubic symphysis. There is generalized and symmetric atrophy of the regional musculature. The bladder is distended but otherwise normal in appearance. The prostate gland is mildly enlarged and heterogeneous noting metallic implants in place. No intraperitoneal free air or free fluid is seen in the pelvis. There are bilateral iliac artery and left femoral artery stents. No pelvic sidewall or inguinal lymphadenopathy is seen. Imaged portions of the small bowel and colon show no evidence of obstruction. IMPRESSION: 1. Fracture of S3 which is only seen on the sagittal series. 2. No additional fracture is identified involving the hips or bony pelvis. ACT 112: Negative or not required by law. Dictated: 06/07/2021 7:31 AM Transcribed: 06/07/2021 8:07 AM Flavia [id number] [facility] Electronically signed by: Ceasar Higgins M.D. 06/07/2021 8:15 AM Abdomen/Pelvis CT 06/07/21 01:44 CT SCAN OF THE ABDOMEN AND PELVIS WITH IV CONTRAST CLINICAL HISTORY: Trauma. Left flank ecchymosis. COMPARISON STUDY: Pelvic CT performed 06/06/2021. Abdominal CT dated 02/28/2021 TECHNIQUE: Following the IV administration of 95 cc of Optiray 320, CT scan of the abdomen and pelvis is performed from the lung bases to the proximal femora. Images are reviewed in the axial, sagittal, and coronal planes. IV contrast was administered without complication. A dose lowering technique was utilized adhering to the principles of ALARA. CT DOSE: 561.70 mGy.cm FINDINGS: Lung bases: The heart is enlarged noting trace pericardial effusion. There is evidence of previous aortic valve surgery. Pacemaker leads are in place. The coronary arteries and mitral annulus are densely calcified. There are trace pleural effusions with dependent atelectasis. Intralobular septal thickening is noted at both lung bases. A small hiatal hernia is observed. Liver: The contrast-enhanced liver is normal in size, contour, and attenuation. There is no intrahepatic biliary ductal dilatation. The hepatic veins and portal veins are patent. Gallbladder: Unremarkable. Spleen: Normal in size and attenuation. Pancreas: The pancreas is atrophic a 12 mm cystic lesion in the pancreatic neck is unchanged and typical for a sidebranch IPMN. Adrenal glands: Unremarkable. Kidneys: The contrast enhanced kidneys demonstrate cortical atrophy and are without hydronephrosis. The kidneys enhance symmetrically. 2 right renal cysts measure up to 3.7 cm. Abdominal vasculature: The abdominal aorta is normal in course and caliber noting advanced atherosclerotic calcification. Bilateral iliac artery stents are in place. There is also a left femoral artery stent. Bowel: There is mild colonic diverticulosis without CT evidence of acute diverticulitis. No bowel obstruction is identified. The appendix is nonvisualized. Peritoneum: There is no intraperitoneal free air or abdominal ascites. A small fat-containing umbilical hernia is noted. Lymphadenopathy: None. Pelvic viscera: The prostate gland is mildly enlarged and heterogeneous with metallic implants in place. The bladder is distended but otherwise normal in appearance. Postoperative change is noted in the left groin. Skeletal structures: The skeletal structures are osteopenic. There is moderate lumbosacral spondylosis. Degenerative changes noted in the sacroiliac joints with partial fusion on the right. A fracture of S3 is again noted. This is only seen on the sagittal reformats. No additional acute fracture is identified. No lytic or blastic lesions are seen. There are healed left posterior rib fractures. IMPRESSION: 1. There is no evidence of solid organ injury in the abdomen or pelvis. 2. A nondisplaced fracture of S3 is again noted. 3. Cardiomegaly and trace pleural effusions. Intralobular septal thickening suggests congestive change/fluid overload and clinical correlation will be required. 4. Additional findings as above. ACT 112: Negative or not required by law. Electronically signed by: Ceasar Higgins M.D. 06/07/2021 8:28 AM (1) Closed sacral fracture Encounter type: initial encounter Zone of sacrum fracture: unspecified portion of sacrum Qualified Code(s): S32.10XA - Unspecified fracture of sacrum, initial encounter for closed fracture
--- NOTE | 2021-06-07 15:35 | Communication Note ---
Date of Service: June 07, 2021 He is an 80-year-old male with significant past medical history as mentioned in H&P including severe aortic stenosis, atrial fibrillation on Eliquis apparently has been falling frequently at home recently. He has had a fall backwards hitting his head while he was trying to reach an object over the fridge. No history of loss of consciousness. He suffered scalp laceration which has been sutured. He remains stable since admission and denies any significant examination. His hemoglobin on admission was 9.8 and that has dropped to 7.1 since admission. Given significant cardiac history will give him 1 unit of blood transfusion today and hold his Eliquis for now. Full progress note will be done tomorrow by the hospitalist. Dr Narayan Lee
[2021-06-07] MEDS ORDERED: SODIUM CHLORIDE 0.9% 250 ML IV PRN (15:36)
[2021-06-07] MEDS: TERAZOSIN HCL 5 MG CAP PO SCH (20:06)
[2021-06-08 06:58] LABS: Basophils # (auto) 0.01 K/uL (0-0.2); Basophils % (auto) 0.1 %; Eosinophils # (auto) 0.22 K/uL (0-0.5); Eosinophils % (auto) 3.3 %; Hematocrit (blood only) 25.3 % (42-52); Hemoglobin 8.3 g/dL (14.0-18.0); Immature Granulocytes # (auto) 0.03 K/uL (0.00-0.02); Immature Granulocytes % (auto) 0.4 %; Lymphocytes # (auto) 0.98 K/uL (1.2-3.4); Lymphocytes % (auto) 14.6 %; Mean Corpuscular Hgb Conc 32.8 g/dL (32-36); Mean Corpuscular Volume 85.5 fL (80-100); Mean Platelet Volume 8.5 fL (7.4-10.4); Monocytes # (auto) 0.85 K/uL (0.11-0.59); Monocytes % (auto) 12.6 %; Neutrophils # (auto) 4.63 K/uL (1.4-6.5); Platelet Count 227 K/uL (130-400); RDW Coefficient of Variation 16.6 % (11.5-14.5); RDW Standard Deviation 52.3 fL (36.4-46.3); Red Blood Count 2.96 M/uL (4.7-6.1); White Blood Count 6.72 K/uL (4.8-10.8)
[2021-06-08 07:20] LABS: BUN Creatinine Ratio 13.9 (10-20); Calcium 7.9 mg/dl (8.5-10.1); Creatinine Clr Calc Pharmacy 47.2 ml/min; Est GFR (African American) 79.9 ml/min; Est GFR (Non-African American) 68.9 ml/min; Potassium 3.8 mmol/L (3.5-5.1)
[2021-06-08] MEDS: METOPROLOL SUCC 25MG EXT REL TAB PO SCH ×2 (08:35→19:36)
[2021-06-08] MEDS: THIAMINE HCL 100 MG TAB PO SCH (08:35)
[2021-06-08] MEDS: levETIRAcetam 500 MG TAB PO SCH ×2 (08:35→19:37)
[2021-06-08] MEDS: CHOLECALCIFEROL 1,000 UNITS 25 MCG TAB PO SCH (08:35)
[2021-06-08] MEDS: EZETIMIBE 10 MG TABLET PO SCH (08:35)
[2021-06-08] MEDS: ATORVASTATIN 20 MG TAB PO SCH (08:35)
[2021-06-08] MEDS: FINASTERIDE 5 MG TAB PO SCH (08:35)
[2021-06-08] MEDS: ASPIRIN 81 MG ECTAB PO SCH (08:35)
[2021-06-08] MEDS: AMIODARONE 200 MG TAB PO SCH (08:36)
[2021-06-08] MEDS: POTASSIUM CHLORIDE 10 MEQ TABCR PO SCH (08:36)
[2021-06-08] MEDS ORDERED: FUROSEMIDE 20 MG TAB PO SCH (09:00)
[2021-06-08] MEDS: ACETAMINOPHEN 325 MG TAB PO PRN ×2 (15:15→19:36)
--- NOTE | 2021-06-08 16:48 | Hospitalist Progress Note ---
Date of Service June 08, 2021 Assessment & Plan (1) Anemia: Plan: acute on chronic-recent hematuria s/p cystoscopy as outpatient. Anemia likely related to acute blood loss. Denies any hematochezia or black stools. Hematuria has resolved. Cont to monitor H/H in am. (2) Recurrent falls: Plan: likely multifactorial, PT/OT, review medication list. Gabapentin has been held. PCP review of med list and other mitigation factors at home. (3) PAF (paroxysmal atrial fibrillation): Plan: cont amiodarone, hold eliquis-likely will restart at discharge now that hematuria has resolved and anemia is improved. 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 He verbalized understanding with intent to comply. (4) Hematoma of scalp: Plan: s/p sutures in the ER. Followup in outpatient clinic for suture removal 10 days after placement. (5) Chronic right heart failure: Plan: chronic, compensated, cont current medications. (6) Sacral fracture, closed: Plan: nonoperative S3 fracture. Evaluated by ortho. WBAT. Pain is controlled at this time. (7) DVT prophylaxis: Plan: SCDs in setting of anemia 2/2/ blood loss Full Code [facility] Hospitalist Admission and Anticipated Discharge Date Admission Date: June 07, 2021 Subjective 80 yo M admitted for fall at home and anemia. Received 1 unit of blood with improvement in H/H Pt denies feeling poorly prior to the incident denies LOC Denies feeling significantly better after receiving the blood. Denies SOB, CP Eager to return home but some imbalance issues even with walker PT supposed to re-evaluate. Review of Systems Review of Systems: All systems were reviewed and negative except as indicated in subjective above. Physical Exam Physical Exam: CONSTITUTIONAL: WNWD, vitals as above, generally well- appearing, NAD EYES: EOMI bilaterally, PERRL, normal conjunctivae, no scleral icterus ENT: external ear and nose normal, MMM NECK: trachea midline, RESPIRATORY: clear to auscultation bilaterally, no crackles, rales or wheezes, normal respiratory effort CARDIOVASCULAR: regular rate and rhythm, S1 and 2 heard without murmurs, gallops or rubs, no JVD, no peripheral edema CHEST: inspection of chest was normal GASTROINTESTINAL: soft, nontender, ND, no guarding MUSCULOSKELETAL: strength 5/5 throughout, head is normocephalic and atraumatic, SKIN: warm and dry NEUROLOGIC: CN 2-12 grossly intact, no sensory deficit, normal cognition, normal speech, no tremor PSYCHIATRIC: alert cooperative and oriented to person, place and time. Euthymic mood, makes good eye contact, language grossly intact, recent and remote memory grossly intact. Results & Data Results & Data ([facility]) Vital Signs (Past 12 Hours) Vital Signs Temp Pulse Pulse Resp BP BP Pulse Ox 06/08/21 14:39 36.7 C 63 20 157/55 H 94 06/08/21 14:15 61 06/08/21 10:32 36.7 C 63 20 133/59 L 95 06/08/21 08:51 70 06/08/21 07:56 36.7 C 66 16 157/61 H 92 Laboratory Results Short CBC 06/08/21 Range/Units 06:39 WBC 6.72 (4.8-10.8) K/uL Hgb 8.3 L (14.0-18.0) g/dL Hct 25.3 L (42-52) % Plt Count 227 (130-400) K/uL BMP 06/08/21 06:39 Sodium 133 L Potassium 3.8 Chloride 104 Carbon Dioxide 24 BUN 14 Creatinine 1.01 Glucose 109 H Calcium 7.9 L Medications Administered Current Inpatient Medications Acetaminophen (Acetaminophen 325 Mg Tab) 650 mg PO Q4H PRN PRN Reason: Pain or Fever Stop: 07/07/21 06:25 Last Admin: 06/08/21 15:15 Dose: 650 mg Documented by: Amiodarone HCl (Amiodarone 200 Mg Tab) 200 mg PO QAM [facility] Stop: 07/07/21 08:59 Last Admin: 06/08/21 08:36 Dose: 200 mg Documented by: Apixaban (Apixaban 5 Mg Tablet) 5 mg PO BID [facility] Stop: 07/07/21 08:59 Last Admin: 06/07/21 08:55 Dose: 5 mg Documented by: Aspirin (Aspirin 81 Mg Ectab) 81 mg PO DAILY [facility] Stop: 07/07/21 08:59 Last Admin: 06/08/21 08:35 Dose: 81 mg Documented by: Atorvastatin Calcium (Atorvastatin 20 Mg Tab) 20 mg PO QAM [facility] Stop: 07/07/21 08:59 Last Admin: 06/08/21 08:35 Dose: 20 mg Documented by: Ezetimibe (Ezetimibe 10 Mg Tablet) 10 mg PO QAM [facility] Stop: 07/07/21 08:59 Last Admin: 06/08/21 08:35 Dose: 10 mg Documented by: Finasteride (Finasteride 5 Mg Tab) 5 mg PO QAM [facility] Stop: 07/07/21 08:59 Last Admin: 06/08/21 08:35 Dose: 5 mg Documented by: Furosemide (Furosemide 20 Mg Tab) 20 mg PO MoWeFr@0900 [facility] Stop: 07/08/21 08:59 Last Admin: 06/08/21 08:35 Dose: 20 mg Documented by: Levetiracetam (Levetiracetam 500 Mg Tab) 500 mg PO Q12 [facility] Stop: 07/07/21 08:59 Last Admin: 06/08/21 08:35 Dose: 500 mg Documented by: Metoprolol Succinate (Metoprolol Succ 25mg Ext Rel Tab) 75 mg PO BID [facility] Stop: 07/07/21 08:59 Last Admin: 06/08/21 08:35 Dose: 75 mg Documented by: Nitroglycerin (Nitroglycerin Sl 0.4 Mg/Tab Tab) 0.4 mg SL UD PRN PRN Reason: Chest Pain Stop: 07/07/21 06:25 Ondansetron HCl (Ondansetron Inj 2 Mg/Ml 2 Ml Vial) 4 mg IV Q6H PRN PRN Reason: Nausea Stop: 07/07/21 06:25 Polyethylene Glycol (Polyethylene (Miralax) 17 Gm Pack) 17 gm PO DAILY PRN PRN Reason: Constipation Stop: 07/07/21 06:25 Potassium Chloride (Potassium Chloride 10 Meq Tabcr) 10 meq PO DAILY [facility] Stop: 07/07/21 08:59 Last Admin: 06/08/21 08:36 Dose: 10 meq Documented by: Terazosin HCl (Terazosin Hcl 5 Mg Cap) 10 mg PO HS [facility] Stop: 07/07/21 20:59 Last Admin: 06/07/21 20:06 Dose: 10 mg Documented by: Thiamine HCl (Thiamine Hcl 100 Mg Tab) 100 mg PO QAM [facility] Stop: 07/07/21 08:59 Last Admin: 06/08/21 08:35 Dose: 100 mg Documented by: Vitamin D (Cholecalciferol 1,000 Units 25 Mcg Tab) [facility] Stop: 07/07/21 08:59 Last Admin: 06/08/21 08:35 Dose: 1,000 units Documented by: (1) Anemia Anemia type: unspecified type Qualified Code(s): D64.9 - Anemia, unspecified (2) Hematoma of scalp Encounter type: initial encounter Qualified Code(s): S00.03XA - Contusion of scalp, initial encounter
[2021-06-08] MEDS: TERAZOSIN HCL 5 MG CAP PO SCH (19:37)
[2021-06-09 07:50] LABS: Mean Corpuscular Hemoglobin 28.4 pg (25-34); Mean Corpuscular Hgb Conc 33.3 g/dL (32-36); Mean Corpuscular Volume 85.2 fL (80-100); Mean Platelet Volume 8.5 fL (7.4-10.4); Platelet Count 253 K/uL (130-400); RDW Coefficient of Variation 16.6 % (11.5-14.5); RDW Standard Deviation 51.3 fL (36.4-46.3); Red Blood Count 3.17 M/uL (4.7-6.1); White Blood Count 7.09 K/uL (4.8-10.8)
[2021-06-09 08:27] LABS: BUN Creatinine Ratio 12.6 (10-20); Calcium 8.2 mg/dl (8.5-10.1); Creatinine Clr Calc Pharmacy 50.2 ml/min; Est GFR (African American) 86.1 ml/min; Est GFR (Non-African American) 74.2 ml/min; Magnesium 1.8 mg/dl (1.7-2.4); Potassium 3.9 mmol/L (3.5-5.1)
[2021-06-09] MEDS: ATORVASTATIN 20 MG TAB PO SCH (08:38)
[2021-06-09] MEDS: levETIRAcetam 500 MG TAB PO SCH (08:38)
[2021-06-09] MEDS: ASPIRIN 81 MG ECTAB PO SCH (08:38)
[2021-06-09] MEDS: METOPROLOL SUCC 25MG EXT REL TAB PO SCH (08:38)
[2021-06-09] MEDS: CHOLECALCIFEROL 1,000 UNITS 25 MCG TAB PO SCH (08:39)
[2021-06-09] MEDS: THIAMINE HCL 100 MG TAB PO SCH (08:39)
[2021-06-09] MEDS: EZETIMIBE 10 MG TABLET PO SCH (08:39)
[2021-06-09] MEDS: AMIODARONE 200 MG TAB PO SCH (08:39)
[2021-06-09] MEDS: FINASTERIDE 5 MG TAB PO SCH (08:39)
[2021-06-09] MEDS: POTASSIUM CHLORIDE 10 MEQ TABCR PO SCH (08:40)
[2021-06-09] MEDS ORDERED: amLODIPine BESYLATE 5 MG TAB PO SCH (09:00)
--- NOTE | 2021-06-09 14:17 | Discharge Summary ---
Date of Service June 09, 2021 Admission HPI Per Admitting Provider HISTORY OF PRESENT ILLNESS: This is an 80-year-old male with past medical history significant for hyperlipidemia, history of carotid stenosis, right heart failure, cor pulmonale, chronic paroxysmal atrial fibrillation, hypertension, atrial septal defect secundum s/p repair, nonrheumatic aortic valve stenosis, moderate malnutrition, slow transit constipation, history of prostate cancer s/p surgery and radiation,, chronic kidney disease stage III, generalized seizures, lumbar radiculopathy, anemia of chronic kidney disease, history of hematuria who lives at home with his , comes with a fall, which seems to be a mechanical fall. He was trying to bend and go to fix something and place it in the refrigerator, when he lost balance and fell backwards, hit his head, did not lose consciousness. Blood was coming on his head. He is on blood thinners due to his heart disease and he was brought in here and had 5 sutures in the back of his head. Son told the ER physician that he is lately falling frequently and is having imbalance. His labs showed hemoglobin of 7.4. The patient has baseline hemoglobin around 9-10. Currently, the patient is very sleepy, very hard to wake him up and could not get much history from the patient. Currently denies any headache, denies chest pain, denies any shortness of breath, denies any nausea or vomiting, denies any abdominal pain, denies any diarrhea or constipation, denies any blood in stool or black stools. Afebrile, hemodynamically stable. Admission Exam Per Admitting Provider PHYSICAL EXAMINATION: GENERAL: The patient is drowsy, but arousable, not in acute distress. VITAL SIGNS: Temperature 37.3, pulse 69, respiratory rate 18, blood pressure 121/69, oxygen 98% on 2 liters. HEENT: Sutures in the occipital region. No facial droop seen. NECK: No JVD or neck masses. CARDIOVASCULAR: S1 and S2 heard. Regular rate and rhythm. No murmur, no gallop. RESPIRATORY: Normal AP diameter. No accessory muscle use. No wheezing, no crackles. ABDOMEN: Soft, bowel sounds present, nontender, no distention. CENTRAL NERVOUS SYSTEM: Drowsy, arousable, answers simple questions, obeys simple commands. Moves extremities. EXTREMITIES: No edema, no erythema seen. 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 in setting of ground level fall Hypertension scalp laceration s/p suture placement Discharge Exam CONSTITUTIONAL: WNWD, vitals as above, generally well-appearing, NAD EYES: normal conjunctivae, no scleral icterus ENT: external ear and nose normal, MMM NECK: trachea midline, RESPIRATORY: clear to auscultation bilaterally, no crackles, rales or wheezes, normal respiratory effort CARDIOVASCULAR: regular rate and rhythm, S1 and 2 heard without murmurs, gallops or rubs, no JVD, no peripheral edema CHEST: inspection of chest was normal GASTROINTESTINAL: soft, nontender, ND, no guarding MUSCULOSKELETAL: strength 5/5 throughout, head is normocephalic and atraumatic, SKIN: warm and dry NEUROLOGIC: CN 2-12 grossly intact, no sensory deficit, normal cognition, normal speech, no tremor PSYCHIATRIC: alert cooperative and oriented to person, place and time. Euthymic mood, makes good eye contact, language grossly intact, recent and remote memory grossly intact. Discharge Data Allergies Allergy/AdvReac Type Severity Reaction Status Date / Time bee venom protein (honey bee) Allergy Severe ANAPHYLAXIS-YELLOW Verified 02/26/21 19:22 JACKETS lorazepam AdvReac Mild oversedation Verified 02/26/21 19:22 from AWSS protocol Uncoded Nonscreenable Allergy Severe All Uncoded 02/26/21 19:22 Allergen IV's must be administered thru 0.2mic in-line filter Consultations 06/07/21 01:46 ED Decision to Admit Stat 06/07/21 07:11 Consult Orthopedic Surgery Routine Ordered Studies 06/06/21 20:50 CT cervical spine wo con Stat CT head/brain wo con Stat 06/06/21 22:48 CT pelvis wo con Urgent 06/07/21 01:44 CT abd pelvis IV con only Urgent Hospital Course (1) Anemia: (2) Recurrent falls: (3) PAF (paroxysmal atrial fibrillation): cont amiodarone, hold eliquis (4) H/O alcohol dependence: (5) Chronic right heart failure: (6) Pulmonary hypertension: (7) Sacral fracture, closed: (8) Scalp laceration: 80 yo M admitted after a fall thought secondary in part to symptomatic anemia after recent hematuria. Outpatient records revealed a cystoscopy for hematuria with some bladder irritation and he received treatment for a UTI. At that visit, on 05/24/21 he did mention feeling off and unsteady. He is on anticoagulation and head CT was negative on admission. He sustained a scalp laceration requiring sutures placed in the ER. No loss of consciousness was reported. His Hb was 7.4, slightly lower than his baseline. One unit of blood was transfused on 06/07. Follow-up H/H went to 8.08/05 and was 02/07 the following day, which was day of discharge. He sustained an age-related osteoporotic closed sacral fracture which was non-operable per orthopedics. He was allowed to be weight bearing as tolerated. PT evaluated him and cleared him for returning home. He was sent home in stable condition, feeling improved after the blood, with home health services. Close primary care follow-up was recommended. Home Health Attestation I certify that this patient is under my care and that I, or a physicians commercial lending assistant working with me, had a face to-face encounter that meets the home health [id number] encounter requirements with this patient. The encounter with the patient was in whole, or in part, for the following medical condition, which is the primary reason for home health care (list medical condition): I certify that, based on my findings, the following services are medically necessary home health services: My clinical findings support the need for the above services because: Further, I certify that my clinical findings support that this patient is homebound (i.e. absences from home require considerable and taxing effort and are for medical reasons or pentec[employer] services or infrequently or of short duration when for other reasons) because: Certification for Home Health Services: Based on the above findings, I certify that this patient is confined to the home and needs intermittent half-way care, physical therapy and/or speech therapy or continues to need occupational therapy. The patient is under my care, and I have initiated the establishment of the plan of care. This patient will be followed by a physician who will periodically review the plan of care. Total Time Total Time Spent Total Time Spent (In Minutes): 60 Discharge Plan Discharge Items Patient Disposition: Home - Home Health Services Reason For Visit: FALL Discharge Diagnosis: recurrent falls anemia 2/2 acute blood loss 2/2 hematuria closed sacral fracture Hypertension Condition on Discharge: Good Activity: Resume your previous activity Non-emergency contact: Primary Care Provider Call non-emergency contact if: you have any medication questions and your symptoms worsen Follow-up/Referrals: Henry Campbell MD [Primary Care Provider] - (Date & Time 06/14/2021 11:00 AM Provider Henry Campbell MD Department [facility] ) Diet: Heart Healthy Diet Texture: Easy to Chew Addtl Attending Provider Instructions: Please take all medications as instructed on discharge list below. You are being sent home with PT and OT through home health. This will be to improve your balance and strength so as to reduce your risk of falls moving forward. You have been given additional blood pressure medication as your measurement was elevated while in the hospital. Please have your blood pressure evaluated by your primary care physician within one week. You have been restarted on apixaban (blood thinner) and will need to touch base with your PCP or Urologist in case of any further blood in your urine. Your gabapentin may be contributing to your falls. Please consider adjusting this to night time only, or discuss changes with your boat painter. Please followup with your primary care physician within one week of discharge from the hospital. This will be to recheck your blood pressure, ensure outpatient physical and occupational therapy services are in place at home and review your fall risk with mitigation strategies as appropriate. It was a pleasure taking care of you! Please call if you have any questions or problems. You can reach a [facility] hospitalist on duty at [facility] 24 hours a day by calling [phone]. Take care of yourself. Anushka Cavazos, DO [facility] Pending Studies at Discharge: No Stand-Alone Forms: My [facility] Medications and DC Order Prescriptions: New amlodipine [Norvasc] 5 mg Tablet 10 mg PO QAM Qty: 30 RF: 0 Continued multivitamin Tablet 1 tab PO DAILY RF: 0 amoxicillin 500 mg capsule 2,000 mg PO DIRECTED PRN (Reason: PRIOR TO DENTAL APPT.) RF: 0 furosemide 40 mg tablet 40 mg PO MoWeFr@0900 RF: 0 atorvastatin 20 mg tablet 20 mg PO HS RF: 0 levetiracetam 500 mg tablet 500 mg PO BID RF: 0 ascorbic acid (vitamin C) [Vitamin C] 500 mg Tablet 500 mg PO DAILY RF: 0 epinephrine [EpiPen] 0.3 mg/0.3 mL Auto-Injector 0.3 mg IM DIRECTED PRN (Reason: Allergic Reaction) RF: 0 terazosin 10 mg capsule 10 mg PO HS RF: 0 ezetimibe 10 mg tablet 10 mg PO DAILY RF: 0 Metamucil (sugar) Powder 1 tbsp PO DAILY PRN (Reason: Constipation) RF: 0 Calcium 600 + D(3) 600 mg calcium- 200 unit Capsule 1 cap PO DAILY RF: 0 sildenafil (pulm.hypertension) 20 mg tablet 20 mg PO BID RF: 0 cholecalciferol (vitamin D3) [Vitamin D3] 50 mcg (2,000 unit) Capsule 50 mcg PO DAILY RF: 0 coQ10 (ubiquinol) 200 mg Capsule 200 mg PO DAILY RF: 0 thiamine HCl (vitamin B1) [Vitamin B-1] 100 mg Tablet 100 mg PO DAILY RF: 0 metoprolol tartrate 50 mg tablet 50 mg PO TID RF: 0 amiodarone 200 mg Tablet 200 mg PO QAM Qty: 30 RF: 0 aspirin 81 mg Tablet,Delayed Release (Dr/Ec) 81 mg PO QAM Qty: 30 RF: 0 potassium chloride 20 mEq Tablet,Er Particles/Crystals 20 meq PO QAM Qty: 30 RF: 0 apixaban 5 mg Tablet 5 mg PO BID RF: 0 Changed gabapentin 400 mg capsule 400 mg PO HS Qty: 0 RF: 0 Discharge Orders: Discharge Order (Routine); Ordered 06/09/21 Ordered By: Anushka Cavazos Admission Data Admit Date/Time: 06/07/21 03:27 Attending Provider: Anushka Cavazos Admit Provider: Kip Ybarra Primary Care Provider: Henry Campbell Other Providers: Kip Ybarra ; Darrel Sanford ; Susana,Home Health Other Interventions: Discharge Summary Assessment (RN) Last Done: 06/09/21 15:01
== END 2021-06-09 15:42 | disposition home health service (06) | DRG 543 ==
LOC: ED 19:54 → EDINP 06-07 03:27 → SUATTDRO 06-07 03:27 → 2N 06-07 06:29

== ENCOUNTER 2021-06-25 09:52 | Inpatient (IN) ==
--- NOTE | 2021-06-25 10:16 | Emergency Department Note ---
History of Present Illness General Chief Complaint: Shortness of Breath/Dyspnea Time Seen by Provider: 06/26/21 06:44 Source: EMS, RN notes reviewed and other (nursing through son) Mode of arrival: EMS Limitations: no limitations History of Present Illness Provider Complaint: shortness of breath Onset (ago): hour(s) (this morning) Severity: moderate Relieved By: + oxygen Treatment prior to arrival: oxygen HPI Narrative: poor historian no O2 this am, normally on 2 L n/C in hospital son checked on hin today and found altered with inc WOB, sats in 50's% new pacer recently anticoagulated, atrial fib on oxy mask at 93% better MS after OS fell and hit head on coffee table last night. Related Data Home oxygen amount: 2 liters Home Medications Medication Instructions Recorded Confirmed Type atorvastatin 20 mg tablet 20 mg PO HS 02/18/21 06/25/21 History epinephrine 0.3 mg/0.3 mL 0.3 mg IM DIRECTED PRN 02/18/21 06/25/21 History injection, auto-injector (EpiPen) ezetimibe 10 mg tablet 10 mg PO DAILY 02/18/21 06/25/21 History furosemide 40 mg tablet 20 mg PO [id number] 02/18/21 06/25/21 History levetiracetam 500 mg tablet 500 mg PO BID 02/18/21 06/25/21 History sildenafil (pulm.hypertension) 20 20 mg PO BID 02/18/21 06/25/21 History mg tablet terazosin 10 mg capsule 10 mg PO HS 02/18/21 06/25/21 History amiodarone 200 mg tablet 200 mg PO QAM #30 tab 03/03/21 06/25/21 Rx aspirin 81 mg tablet,delayed 81 mg PO QAM #30 tab 03/03/21 06/25/21 Rx release potassium chloride 20 mEq 20 meq PO QAM #30 tab 03/03/21 06/25/21 Rx tablet,extended release(part/cryst) gabapentin 400 mg capsule 400 mg PO HS #0 cap 06/09/21 06/25/21 Rx amlodipine 10 mg tablet 10 mg PO DAILY 06/25/21 06/25/21 History finasteride 5 mg tablet 5 mg PO DAILY 06/25/21 06/25/21 History metoprolol succinate 50 mg 75 mg PO BID 06/25/21 06/25/21 History tablet,extended release 24 hr Allergies Allergy/AdvReac Type Severity Reaction Status Date / Time bee venom protein (honey bee) Allergy Severe ANAPHYLAXIS-YELLOW Verified 06/25/21 13:52 JACKETS lorazepam AdvReac Mild oversedation Verified 06/25/21 13:52 from AWSS protocol Uncoded Nonscreenable Allergy Severe All Uncoded 06/25/21 13:52 Allergen IV's must be administered thru 0.2mic in-line filter Past Med/Surg History Medical History Acute hyponatremia Anemia Atrial fibrillation, new onset Atrial septal defect, secundum CAD (coronary atherosclerotic disease) Carotid artery stenosis Chronic diastolic CHF (congestive heart failure), NYHA class 3 Complete heart block, post-surgical Elevated troponin Generalized muscle weakness Gout H/O alcohol dependence Hematuria Hypokalemia Lumbar radiculopathy Moderate aortic stenosis Orthostasis PAF (paroxysmal atrial fibrillation) new onset Feb 2021, not on AC due to hematuria and anemia, when that was resolved, again taken off AC due to recurrent falls. 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 King Status post lumbar surgery 2014 Social History Smoking Status: Former smoker Tobacco Type: Cigarettes Second Hand Exposure: No; Hx Alcohol Use: No Hx Substance Use: No Preferred Language: Sinhala Communication Ability: Effective Datapower Consultant Required: No Beliefs That Will Affect Care: None marital status: Current Living Situation: Spouse Current Living Situation Comment: Lives with who is currently admitted to the hospital How many Children do You have: 1 Feels Safe at Home: Yes Safety Concerns: Feels Safe At This Time Assistive Devices: Cane, Oxygen - Continuous and Walker Review of Systems See HPI for pertinent positives & negatives. and A total of 10 systems reviewed and were otherwise negative Physical Exam Vital Signs: Vital Signs - 24 hr 06/25/21 09:58 06/25/21 10:00 06/25/21 10:11 Temperature 37.8 C H Temperature Source Axillary Pulse Rate 98 H 86 83 Pulse Rate from Sp O2 Sensor 88 87 83 Pulse Rhythm Regular Pulse Strength Normal Respiratory Rate 27 H 32 H 29 H Respiratory Effort / Characteristics Spontaneous Access ory Muscle Use Respiratory Depth Shallow Respiratory Patter n Tachypnea Blood Pressure 99/38 L 104/56 L Blood Pressure Jennifer n 58 72 Blood Pressure Pos ition Lying Pulse Oximetry 86 L 89 L 93 Oxygen Delivery Me thod Oxymask Oxygen Flow Rate 6 Fraction of Inspir ed Oxygen Sepsis Recent Feve r Within 48 Hours Yes Sepsis New/Unexpla ined Change in Men van Status No Sepsis Action Take n by Nursing Physician Notified Oxygen Flow Rate - Titration 8 Pulse Oximetry Pos t Tiitration 94 06/25/21 10:15 06/25/21 10:30 06/25/21 10:45 Temperature Temperature Source Pulse Rate 84 83 81 Pulse Rate from Sp O2 Sensor 83 82 Pulse Rhythm Pulse Strength Respiratory Rate 21 29 H 28 H Respiratory Effort / Characteristics Respiratory Depth Respiratory Patter n Blood Pressure 108/50 L 99/47 L 103/49 L Blood Pressure Jennifer n 69 64 67 Blood Pressure Pos ition Pulse Oximetry 95 77 L Oxygen Delivery Me thod Oxygen Flow Rate Fraction of Inspir ed Oxygen Sepsis Recent Feve r Within 48 Hours Sepsis New/Unexpla ined Change in Men van Status Sepsis Action Take n by Nursing Oxygen Flow Rate - Titration Pulse Oximetry Pos t Tiitration 06/25/21 10:49 06/25/21 11:00 06/25/21 11:26 Temperature Temperature Source Pulse Rate 80 81 78 Pulse Rate from Sp O2 Sensor 81 Pulse Rhythm Regular Pulse Strength Respiratory Rate 38 H 25 H 25 H Respiratory Effort / Characteristics Respiratory Depth Respiratory Patter n Blood Pressure 107/61 Blood Pressure Jennifer n 76 Blood Pressure Pos ition Pulse Oximetry 94 96 Oxygen Delivery Me thod Oxymask Oxygen Flow Rate 8 Fraction of Inspir ed Oxygen 88 Sepsis Recent Feve r Within 48 Hours Sepsis New/Unexpla ined Change in Men van Status Sepsis Action Take n by Nursing Oxygen Flow Rate - Titration 8 Pulse Oximetry Pos t Tiitration 94 06/25/21 11:30 06/25/21 11:33 06/25/21 11:45 Temperature Temperature Source Pulse Rate 77 77 74 Pulse Rate from Sp O2 Sensor 77 74 Pulse Rhythm Pulse Strength Respiratory Rate 22 25 H 18 Respiratory Effort / Characteristics Respiratory Depth Respiratory Patter n Blood Pressure 100/43 L 96/44 L Blood Pressure Jennifer n 62 61 Blood Pressure Pos ition Pulse Oximetry 97 96 Oxygen Delivery Me thod Oxygen Flow Rate Fraction of Inspir ed Oxygen Sepsis Recent Feve r Within 48 Hours Sepsis New/Unexpla ined Change in Men van Status Sepsis Action Take n by Nursing Oxygen Flow Rate - Titration Pulse Oximetry Pos t Tiitration 06/25/21 12:00 06/25/21 12:12 06/25/21 12:15 Temperature Temperature Source Pulse Rate 72 73 74 Pulse Rate from Sp O2 Sensor 72 74 Pulse Rhythm Pulse Strength Respiratory Rate 24 20 12 Respiratory Effort / Characteristics Spontaneous Respiratory Depth Normal Respiratory Patter n Blood Pressure 95/40 L 90/47 L Blood Pressure Jennifer n 58 61 Blood Pressure Pos ition Pulse Oximetry 96 98 98 Oxygen Delivery Me thod Oxygen Flow Rate Fraction of Inspir ed Oxygen 35 Sepsis Recent Feve r Within 48 Hours Sepsis New/Unexpla ined Change in Men van Status Sepsis Action Take n by Nursing Oxygen Flow Rate - Titration Pulse Oximetry Pos t Tiitration Physical Exam: Vital signs reviewed. General: Chronically ill appearing 80 yo male, in no distress, in no significant distress. HEENT: No scleral icterus, PERRLA, neck supple. Abrasion to the forehead Cardiovascular: Regular rate and rhythm, systolic ejection murmur Pulmonary: Coarse breath sounds to auscultation bilateral lower lung so, increased work of breathing, tachypneic on an oxymask Abdomen: Soft, nontender, nondistended, positive bowel sounds. Musculoskeletal: Atraumatic, no peripheral edema. Nontender to palpation over the cervical and thoracic spines Neurologic: Patient awake alert and somewhat confused but clearing during exam. Answering most questions appropriately Skin: Warm, dry, no rash Course Administered Medications Amiodarone HCl (Amiodarone 200 Mg Tab) 200 mg PO QAM [facility] Stop: 07/26/21 11:59 Last Admin: 06/26/21 14:50 Dose: 200 mg Documented by: [id number] Amlodipine Besylate (Amlodipine Besylate 5 Mg Tab) 10 mg PO DAILY [facility] Stop: 07/26/21 08:59 Last Admin: 06/26/21 08:23 Dose: 10 mg Documented by: [id number] Aspirin (Aspirin 81 Mg Ectab) 81 mg PO QAM [facility] Stop: 07/26/21 08:59 Last Admin: 06/26/21 08:23 Dose: 81 mg Documented by: [id number] Finasteride (Finasteride 5 Mg Tab) 5 mg PO DAILY LARRY Stop: 07/26/21 08:59 Last Admin: 06/26/21 08:23 Dose: 5 mg Documented by: [id number] Furosemide (Furosemide 40 Mg/4 Ml Vial) 40 mg IV DAILY LARRY Stop: 07/26/21 08:59 Last Admin: 06/26/21 08:23 Dose: 40 mg Documented by: [id number] Gabapentin (Gabapentin 400 Mg Cap) 400 mg PO HS [facility] Stop: 07/25/21 20:59 Last Admin: 06/25/21 21:32 Dose: 400 mg Documented by: [id number] Piperacillin Sod/Tazobactam (Sod 3.375 gm/ Dextrose) 115 mls @ 28.75 mls/hr IV Q8H [facility]; Protocol Stop: 06/27/21 19:59 Last Admin: 06/26/21 14:50 Dose: 28.8 mls/hr Documented by: [id number] Infusion: 06/26/21 10:09 Dose: 0 mls/hr Documented by: [id number] Admin: 06/26/21 06:24 Dose: 28.8 mls/hr Documented by: [id number] Infusion: 06/26/21 01:36 Dose: 0 mls/hr Documented by: [id number] Admin: 06/25/21 21:32 Dose: 28.8 mls/hr Documented by: [id number] Heparin Sodium/Dextrose (Heparin Sodium/Dextrose) 25,000 units in 500 mls @ 26 mls/hr IV .[id number] [facility]; Protocol Stop: 07/25/21 23:44 Last Titration: 06/26/21 11:22 Dose: 1,300 units/hr, 26 mls/hr Documented by: [id number] Cosigned by: [id number] Titration: 06/26/21 11:03 Dose: 0 units/hr, 0 mls/hr Documented by: [id number] Cosigned by: [id number] Titration: 06/26/21 07:44 Dose: 1,300 units/hr, 26 mls/hr Documented by: [id number] Cosigned by: [id number] Admin: 06/26/21 00:34 Dose: 1,100 units/hr, 22 mls/hr Documented by: [id number] Cosigned by: [id number] Levetiracetam (Levetiracetam 500 Mg Tab) 500 mg PO BID [facility] Stop: 07/25/21 20:59 Last Admin: 06/26/21 08:23 Dose: 500 mg Documented by: [id number] Admin: 06/25/21 21:32 Dose: 500 mg Documented by: [id number] Metoprolol Succinate (Metoprolol Succ 25mg Ext Rel Tab) 75 mg PO BID [facility] Stop: 07/25/21 20:59 Last Admin: 06/26/21 08:24 Dose: 75 mg Documented by: [id number] Admin: 06/25/21 21:32 Dose: 75 mg Documented by: [id number] Miscellaneous Information (Piperacill/Tazobac Consult Active) 1 ea N/A UD PRN PRN Reason: Consult Stop: 07/25/21 13:13 Last Admin: 06/26/21 14:51 Dose: 1 ea Documented by: [id number] Potassium Chloride (Potassium Chloride Crtab 20 Meq Tabcr) 20 meq PO QAM [facility] Stop: 07/26/21 08:59 Last Admin: 06/26/21 08:25 Dose: 20 meq Documented by: [id number] Discontinued Medications Albuterol (Albut/Ipratrop 3mg/0.5mg Neb 3 Ml Vial) 3 ml INH NOW STA Stop: 06/25/21 10:18 Last Admin: 06/25/21 10:40 Dose: 3 ml Documented by: [id number] Aspirin (Aspirin 81 Mg Chew) 324 mg PO NOW STA Stop: 06/25/21 11:37 Last Admin: 06/25/21 12:16 Dose: 324 mg Documented by: [id number] Dexamethasone (Dexamethasone Sod Inj 4 Mg/Ml Vial) Confirm Administered Dose 8 mg .ROUTE .STK-MED ONE Stop: 06/25/21 11:05 Last Admin: 06/25/21 11:07 Dose: 6 mg Documented by: [id number] Furosemide (Furosemide 40 Mg/4 Ml Vial) 40 mg IV ONE ONE Stop: 06/25/21 11:36 Last Admin: 06/25/21 12:17 Dose: 40 mg Documented by: [id number] Heparin Sodium (Porcine) (Heparin Sod 5,000 Unit/0.5 Ml Vial) 5,000 units SQ Q8 LARRY Stop: 07/25/21 21:59 Last Admin: 06/25/21 21:32 Dose: 5,000 units Documented by: [id number] Heparin Sodium (Porcine) (Heparin Sod (Porcine) 1000 Unit/Ml) Confirm Administered Dose 1,000 units .ROUTE .STK-MED ONE Stop: 06/26/21 07:33 Last Admin: 06/26/21 07:43 Dose: 5,000 units Documented by: [id number] Cosigned by: [id number] Heparin Sodium/Dextrose (Heparin Iv Adult Wt-Based Standard *No* Bolus Protocol) 1 ea IV ONE ONE; Protocol Stop: 06/25/21 23:27 Last Admin: 06/26/21 00:34 Dose: Not Given Documented by: [id number] Sodium Chloride (Nss 1000ml) 1,000 mls @ 100 mls/hr IV .Q10H LARRY Stop: 06/25/21 20:29 Last Infusion: 06/25/21 12:43 Dose: 0 mls/hr Documented by: [id number] Admin: 06/25/21 10:40 Dose: 100 mls/hr Documented by: [id number] Acetaminophen (Ofirmev) 1,000 mg in 100 mls @ 400 mls/hr IV NOW STA Stop: 06/25/21 10:31 Last Infusion: 06/25/21 11:08 Dose: 0 mls/hr Documented by: [id number] Admin: 06/25/21 10:40 Dose: 400 mls/hr Documented by: [id number] Dexamethasone 6 mg/ Syringe 1.5 mls @ 1 mls/min IV ONE ONE Stop: 06/25/21 10:22 Last Admin: 06/25/21 12:15 Dose: Not Given Documented by: [id number] Piperacillin Sod/Tazobactam (Sod 3.375 gm/ Dextrose) 115 mls @ 230 mls/hr IV NO W ONE; Protocol Stop: 06/25/21 14:29 Last Infusion: 06/25/21 15:44 Dose: 0 mls/hr Documented by: [id number] Admin: 06/25/21 14:59 Dose: 230 mls/hr Documented by: [id number] Vancomycin HCl 1,500 mg/ (Sodium Chloride) 530 mls @ 200 mls/hr IV ONE ONE Stop: 06/26/21 11:08 Last Infusion: 06/26/21 13:58 Dose: 0 mls/hr Documented by: [id number] Admin: 06/26/21 10:06 Dose: 200 mls/hr Documented by: [id number] Medical Decision Making Differential Diagnosis Reactive airway disease, pneumonia, pneumothorax, COPD, CHF, infections, cardiac ischemia, pulmonary embolism, musculoskeletal, gastrointestinal, as well as other pathologies. Medical Records Attestation: I reviewed the patient's medical records. Home Medications Current Medication List: was personally reviewed by me Laboratory Data Attestation: I reviewed the patient's lab results. Result diagrams: 06/26/21 06:35 06/26/21 06:35 Lab Results 06/25/21 06/25/21 06/25/21 Range/Units 10:05 10:15 10:15 WBC 8.85 (4.8-10.8) K/uL RBC 3.32 L (4.7-6.1) M/uL Hgb 8.7 L (14.0-18.0) g/dL Hct 27.8 L (42-52) % MCV 83.7 (80-100) fL MCH 26.2 (25-34) pg MCHC 31.3 L (32-36) g/dL RDW Std Deviation 51.9 H (36.4-46.3) fL RDW Coeff of Ruth 16.7 H (11.5-14.5) % Plt Count 227 (130-400) K/uL MPV 8.6 (7.4-10.4) fL Immature Gran % (Auto) 0.3 % Neut % (Auto) 85.5 % Lymph % (Auto) 7.0 % Victoria % (Auto) 7.1 % Eos % (Auto) 0.0 % Baso % (Auto) 0.1 % Neut # (Auto) 7.56 H (1.4-6.5) K/uL Lymph # (Auto) 0.62 L (1.2-3.4) K/uL Victoria # (Auto) 0.63 H (0.11-0.59) K/uL Eos # (Auto) 0.00 (0-0.5) K/uL Baso # (Auto) 0.01 (0-0.2) K/uL Immature Gran # (Auto) 0.03 H (0.00-0.02) K/uL Sodium 135 L (136-145) mmol/L Potassium 4.9 (3.5-5.1) mmol/L Chloride 100 (98-107) mmol/L Carbon Dioxide 24 (21-32) mmol/L Anion Gap 11 (3-11) BUN 28 H (6-23) mg/dl Creatinine 1.90 H (0.6-1.4) mg/dl Est Cr Clr Drug Dosing 25.1 ml/min Est GFR ( Amer) 37.2 ml/min Est GFR (Non-Af Amer) 32.1 ml/min BUN/Creatinine Ratio 14.7 (10-20) Glucose 149 H (70-99(Fasting)) mg/dl Lactate (0.4-2.0) mmol/L Calcium 8.4 L (8.5-10.1) mg/dl Magnesium 2.1 (1.7-2.4) mg/dl Total Bilirubin 1.5 H (0.2-1.0) mg/dl AST 528 H (13-39) U/L ALT 427 H (7-52) U/L Alkaline Phosphatase 74 (34-104) U/L Troponin I 2.48 H* (0-0.04) ng/ml Total Protein 6.4 (6.0-8.3) gm/dl Albumin 3.4 (3.4-5.0) gm/dl Globulin 3.0 (2.5-4.0) gm/dl Albumin/Globulin Ratio 1.1 (0.9-2) Procalcitonin (0-0.5) ng/ml Urine Color Urine Appearance (Clear) Urine pH (4.5-7.5) Ur Specific [place] (1.000-1.030) Urine Protein (Negative) Urine Glucose (UA) (Negative) Urine Ketones (Negative) Urine Blood (Negative) Urine Nitrite (Negative) Urine Bilirubin (Negative) Urine Urobilinogen (Negative) Ur Leukocyte Esterase (Negative) Urine WBC (Auto) (0-5) /hpf Urine RBC (Auto) (0-4) /hpf U Hyaline Cast (Auto) (0-5) /lpf U Epithel Cells (Auto) (0-5) /lpf Urine Bacteria (Auto) (Negative) Influ A Molecular Assay (Negative) Influ B Molecular Assay (Negative) SARS-CoV-2, RNA, NAAT NEGATIVE (NEGATIVE) 06/25/21 06/25/21 06/25/21 Range/Units 10:15 10:50 10:54 WBC (4.8-10.8) K/uL RBC (4.7-6.1) M/uL Hgb (14.0-18.0) g/dL Hct (42-52) % MCV (80-100) fL MCH (25-34) pg MCHC (32-36) g/dL RDW Std Deviation (36.4-46.3) fL RDW Coeff of Ruth (11.5-14.5) % Plt Count (130-400) K/uL MPV (7.4-10.4) fL Immature Gran % (Auto) % Neut % (Auto) % Lymph % (Auto) % Victoria % (Auto) % Eos % (Auto) % Baso % (Auto) % Neut # (Auto) (1.4-6.5) K/uL Lymph # (Auto) (1.2-3.4) K/uL Victoria # (Auto) (0.11-0.59) K/uL Eos # (Auto) (0-0.5) K/uL Baso # (Auto) (0-0.2) K/uL Immature Gran # (Auto) (0.00-0.02) K/uL Sodium (136-145) mmol/L Potassium (3.5-5.1) mmol/L Chloride (98-107) mmol/L Carbon Dioxide (21-32) mmol/L Anion Gap (3-11) BUN (6-23) mg/dl Creatinine (0.6-1.4) mg/dl Est Cr Clr Drug Dosing ml/min Est GFR ( Amer) ml/min Est GFR (Non-Af Amer) ml/min BUN/Creatinine Ratio (10-20) Glucose (70-99(Fasting)) mg/dl Lactate (0.4-2.0) mmol/L Calcium (8.5-10.1) mg/dl Magnesium (1.7-2.4) mg/dl Total Bilirubin (0.2-1.0) mg/dl AST (13-39) U/L ALT (7-52) U/L Alkaline Phosphatase (34-104) U/L Troponin I (0-0.04) ng/ml Total Protein (6.0-8.3) gm/dl Albumin (3.4-5.0) gm/dl Globulin (2.5-4.0) gm/dl Albumin/Globulin Ratio (0.9-2) Procalcitonin 0.13 (0-0.5) ng/ml Urine Color Dark Yellow Urine Appearance Clear (Clear) Urine pH 5.0 (4.5-7.5) Ur Specific [place] 1.016 (1.000-1.030) Urine Protein 1+ H (Negative) Urine Glucose (UA) Negative (Negative) Urine Ketones Trace H (Negative) Urine Blood Trace H (Negative) Urine Nitrite Negative (Negative) Urine Bilirubin Negative (Negative) Urine Urobilinogen Negative (Negative) Ur Leukocyte Esterase 1+ H (Negative) Urine WBC (Auto) 10-30 H (0-5) /hpf Urine RBC (Auto) 0-4 (0-4) /hpf U Hyaline Cast (Auto) 5-10 H (0-5) /lpf U Epithel Cells (Auto) >30 H (0-5) /lpf Urine Bacteria (Auto) Negative (Negative) Influ A Molecular Assay Negative (Negative) Influ B Molecular Assay Negative (Negative) SARS-CoV-2, RNA, NAAT (NEGATIVE) 06/25/21 Range/Units 10:56 WBC (4.8-10.8) K/uL RBC (4.7-6.1) M/uL Hgb (14.0-18.0) g/dL Hct (42-52) % MCV (80-100) fL MCH (25-34) pg MCHC (32-36) g/dL RDW Std Deviation (36.4-46.3) fL RDW Coeff of Ruth (11.5-14.5) % Plt Count (130-400) K/uL MPV (7.4-10.4) fL Immature Gran % (Auto) % Neut % (Auto) % Lymph % (Auto) % Victoria % (Auto) % Eos % (Auto) % Baso % (Auto) % Neut # (Auto) (1.4-6.5) K/uL Lymph # (Auto) (1.2-3.4) K/uL Victoria # (Auto) (0.11-0.59) K/uL Eos # (Auto) (0-0.5) K/uL Baso # (Auto) (0-0.2) K/uL Immature Gran # (Auto) (0.00-0.02) K/uL Sodium (136-145) mmol/L Potassium (3.5-5.1) mmol/L Chloride (98-107) mmol/L Carbon Dioxide (21-32) mmol/L Anion Gap (3-11) BUN (6-23) mg/dl Creatinine (0.6-1.4) mg/dl Est Cr Clr Drug Dosing ml/min Est GFR ( Amer) ml/min Est GFR (Non-Af Amer) ml/min BUN/Creatinine Ratio (10-20) Glucose (70-99(Fasting)) mg/dl Lactate 1.2 (0.4-2.0) mmol/L Calcium (8.5-10.1) mg/dl Magnesium (1.7-2.4) mg/dl Total Bilirubin (0.2-1.0) mg/dl AST (13-39) U/L ALT (7-52) U/L Alkaline Phosphatase (34-104) U/L Troponin I (0-0.04) ng/ml Total Protein (6.0-8.3) gm/dl Albumin (3.4-5.0) gm/dl Globulin (2.5-4.0) gm/dl Albumin/Globulin Ratio (0.9-2) Procalcitonin (0-0.5) ng/ml Urine Color Urine Appearance (Clear) Urine pH (4.5-7.5) Ur Specific [place] (1.000-1.030) Urine Protein (Negative) Urine Glucose (UA) (Negative) Urine Ketones (Negative) Urine Blood (Negative) Urine Nitrite (Negative) Urine Bilirubin (Negative) Urine Urobilinogen (Negative) Ur Leukocyte Esterase (Negative) Urine WBC (Auto) (0-5) /hpf Urine RBC (Auto) (0-4) /hpf U Hyaline Cast (Auto) (0-5) /lpf U Epithel Cells (Auto) (0-5) /lpf Urine Bacteria (Auto) (Negative) Influ A Molecular Assay (Negative) Influ B Molecular Assay (Negative) SARS-CoV-2, RNA, NAAT (NEGATIVE) Imaging Data Radiologist's Impression: Chest X-Ray 06/25/21 10:18 XR chest 1V portable HISTORY: Dyspnea COMPARISON: Chest 06/06/2021. FINDINGS: No pneumothorax. The cardiac silhouette is moderately enlarged. An aortic valve stent is noted. The left-sided pacemaker. Cervical spinal fusion hardware. Progressive interstitial/vascular thickening with a few patchy hazy airspace opacities. This likely represents worsening pulmonary edema. IMPRESSION: Cardiomegaly with progression of the moderate pulmonary edema. ACT 112: Negative or not required by law. Electronically signed by: Mihir Flores M.D. 06/25/2021 10:[address] 06/25/21 10:[address] DOSE: 537.48 mGy.cm HISTORY: fall, CHI, eliquis TECHNIQUE: Multiaxial CT images of the head were performed without the use of intravenous contrast. Automated exposure control was utilized for this study. A dose lowering technique was utilized adhering to the principles of ALARA. Comparison: Head CT 06/06/2021. Findings: The paranasal sinuses are clear. Trace bilateral mastoid effusions, unchanged. The calvarium and skull base are intact. There is no mass, hematoma, midline shift, acute infarct. White matter hypodensity is nonspecific but suggestive of microvascular ischemic change. The ventricles and sulci demonstrate mild age-related involutional changes. 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 Impression: No significant change compared to the prior study. No acute intracranial abnormality. ACT 112: Negative or not required by law. Electronically signed by: Mihir Flores M.D. 06/25/2021 11:30 AM Liver Ultrasound 06/25/21 11:38 ABDOMINAL ULTRASOUND, RIGHT UPPER QUADRANT HISTORY: elevated LFT. COMPARISON: None. FINDINGS: Pancreas: The pancreatic tail is obscured by overlying bowel gas. The remaining portions of the pancreas are within normal limits. Liver: Unremarkable. Gallbladder: No gallbladder wall thickening. No gallstones. CBD: 5 mm. Right kidney: There are 2 cysts with the largest measuring 4.4 cm. Miscellaneous: Small right pleural effusion. IMPRESSION: 1. Normal gallbladder. No gallstones. 2. Right renal cyst. 3. Small right pleural effusion. ACT 112: Negative or not required by law. Electronically signed by: Mihir Flores M.D. 06/25/2021 2:22 PM ECG Data Attestation: I personally reviewed and interpreted this ECG as follows: Prior ECG tracings: available for review Pacemaker function: normal pacer function (Atrially sensed and ventricularly paced at 85 bpm. QTc is 555. When compared to previous dated June 07, 2021 rate has increased by 15 bpm.) Blood Pressure Blood Pressure Findings: Normal blood pressure Blood Pressure Disposition: did not require urgent referral MDM Narrative This patient was evaluated and appeared to be in some respiratory distress. IV access was obtained and laboratory work was drawn. Patient was placed on groundwater monitoring technician and noted to be in a paced rhythm at 83 bpm. Chest x-ray was performed and reveals evidence of pulmonary vascular congestion. Head and cervical spine CTs were performed and are negative for acute traumatic findings. Patient's troponin is mildly elevated at 2.48, likely indicating in demand mediated process from fluid overload. Patient was placed on BiPAP for res piratory support. Patient was given 40 mg of IV Lasix and blood pressure was marginal at around 100 systolic. I did discuss the case with cardiology, Dr. Prado agrees with the plan for slow diuresis and support with BiPAP. Patient does appear to be intravascularly depleted however his cardiac history is complex. We did discuss the option of vasopressors versus IV fluid supplementation for worsening hypertension however at this time the patient seems to be reasonably stable and will be observed. A Grande catheter was inserted for accurate I's and O's due to the critical nature of the patient's presentation. Patient was admitted to the [facility] service under Dr. Cavazos with cardiology consultation. Impression & Plan CHF (congestive heart failure), CHI (closed head injury), Fall, Acute hypotension, Hypoxia Critical Care Time Critical Care Time: Yes Total Critical Care Time: 40 I have personally spent greater than 40 minutes of critical care time in the direct management of this patient. This includes bedside care, interpretation of diagnostic studies, and testing, discussion with consultants, patient, and family members, and other required patient management activities. This 40 minutes is in excess of all separately billable procedures. Discharge Plan Visit Data Chief Complaint: Shortness of Breath/Dyspnea ED Provider: Sheila Edwards Discharge Problem: CHF (congestive heart failure), CHI (closed head injury), Fall, Acute hypotension, Hypoxia Discharge Problem: CHF (congestive heart failure) Qualifiers: Heart failure type: unspecified Heart failure chronicity: acute on chronic Qualified Code(s): I50.9 - Heart failure, unspecified CHI (closed head injury) Qualifiers: Encounter type: initial encounter Qualified Code(s): S09.90XA - Unspecified injury of head, initial encounter Fall Qualifiers: Encounter type: initial encounter Qualified Code(s): W19.XXXA - Unspecified fall, initial encounter
[2021-06-25] MEDS ORDERED: ACETAMINOPHEN 1,000 MG/100 ML VIAL IV STA (10:17)
[2021-06-25] MEDS ORDERED: ALBUT/IPRATROP 3MG/0.5MG NEB 3 ML VIAL INH STA (10:17)
[2021-06-25] MEDS ORDERED: dexAMETHasone 6 MG in SYRINGE 0 ML IV ONE (10:21)
[2021-06-25] MEDS ORDERED: SODIUM CHLORIDE 0.9% 1000ML 1,000 ML IV SCH (10:30)
[2021-06-25 10:34] LABS: Basophils # (auto) 0.01 K/uL (0-0.2); Basophils % (auto) 0.1 %; Hematocrit (blood only) 27.8 % (42-52); Hemoglobin 8.7 g/dL (14.0-18.0); Immature Granulocytes # (auto) 0.03 K/uL (0.00-0.02); Immature Granulocytes % (auto) 0.3 %; Lymphocytes # (auto) 0.62 K/uL (1.2-3.4); Mean Corpuscular Hemoglobin 26.2 pg (25-34); Mean Corpuscular Hgb Conc 31.3 g/dL (32-36); Mean Corpuscular Volume 83.7 fL (80-100); Mean Platelet Volume 8.6 fL (7.4-10.4); Monocytes # (auto) 0.63 K/uL (0.11-0.59); Monocytes % (auto) 7.1 %; Neutrophils # (auto) 7.56 K/uL (1.4-6.5); Neutrophils % (auto) 85.5 %; Platelet Count 227 K/uL (130-400); RDW Coefficient of Variation 16.7 % (11.5-14.5); RDW Standard Deviation 51.9 fL (36.4-46.3); Red Blood Count 3.32 M/uL (4.7-6.1); White Blood Count 8.85 K/uL (4.8-10.8)
--- NOTE | 2021-06-25 10:49 | XRay Report ---
XR chest 1V portable HISTORY: Dyspnea COMPARISON: Chest 06/06/2021. FINDINGS: No pneumothorax. The cardiac silhouette is moderately enlarged. An aortic valve stent is no jennifer. The left-sided pacemaker. Cervical spinal fusion hardware. Progressive interstitial/vascular thi ckening with a few patchy hazy airspace opacities. This likely represents worsening pulmonary edema. IMPRESSION: Cardiomegaly with progression of the moderate pulmonary edema. ACT 112: Negative or not required by law. Electronically signed by: Mihir Flores M.D. 06/25/2021 10:48 AM
[2021-06-25 11:02] LABS: Albumin Globulin Ratio 1.1 (0.9-2); Albumin Level 3.4 gm/dl (3.4-5.0); BUN Creatinine Ratio 14.7 (10-20); Bilirubin,Total 1.5 mg/dl (0.2-1.0); Calcium 8.4 mg/dl (8.5-10.1); Creatinine Clr Calc Pharmacy 25.1 ml/min; Est GFR (African American) 37.2 ml/min; Est GFR (Non-African American) 32.1 ml/min; Magnesium 2.1 mg/dl (1.7-2.4); Potassium 4.9 mmol/L (3.5-5.1); Total Protein 6.4 gm/dl (6.0-8.3); Troponin I 2.48 ng/ml (0-0.04)
[2021-06-25] MEDS ORDERED: DEXAMETHASONE SOD INJ 4 MG/ML VIAL ONE (11:04)
[2021-06-25 11:20] LABS: Appearance Urine Clear (Clear); Bacteria Urine Automated Negative (Negative); Bilirubin Urine Negative (Negative); Blood Urine Trace (Negative); Color Urine Dark Yellow; Epithelial Cell Urine Auto >30 /lpf (0-5); Glucose Urine UA Negative (Negative); Ketones Urine Trace (Negative); Leukocyte Esterase Urine 1+ (Negative); Nitrite Urine Negative (Negative); Protein Urine 1+ (Negative); RBC Urine Automated 0-4 /hpf (0-4); Specific Gravity Urine 1.016 (1.000-1.030); Urobilinogen Urine Negative (Negative)
[2021-06-25 11:25] LABS: Influenza A virus by PCR Negative (Negative); Influenza B virus by PCR Negative (Negative)
--- NOTE | 2021-06-25 11:31 | CT Scan Report ---
HEAD CT NONCONTRAST CT DOSE: 537.48 mGy.cm HISTORY: fall, CHI, eliquis TECHNIQUE: Multiaxial CT images of the head were performed without the use of intravenous contrast. A utomated exposure control was utilized for this study. A dose lowering technique was utilized adheri ng to the principles of ALARA. Comparison: Head CT 06/06/2021. Findings: The paranasal sinuses are clear. Trace bilateral mastoid effusions, unchanged. The calvariu m and skull base are intact. There is no mass, hematoma, midline shift, acute infarct. White matter h ypodensity is nonspecific but suggestive of microvascular ischemic change. The ventricles and sulci d emonstrate mild age-related involutional changes. 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 Impression: No significant change compared to the prior study. No acute intracranial abnormality. ACT 112: Negative or not required by law. Electronically signed by: Mihir Flores M.D. 06/25/2021 11:30 AM
[2021-06-25] MEDS ORDERED: FUROSEMIDE 40 MG/4 ML VIAL IV ONE (11:35)
[2021-06-25] MEDS ORDERED: ASPIRIN 81 MG CHEW PO STA (11:36)
[2021-06-25] MEDS ORDERED: PIPERACILL/TAZOBAC CONSULT ACTIVE PRN (13:14)
--- NOTE | 2021-06-25 13:43 | History & Physical Report ---
Date of Service June 25, 2021 Assessment & Plan (1) Acute respiratory failure: Plan: 2/2 acute heart failure with pulmonary edema, see below. (2) Acute heart failure with preserved ejection fraction: Plan: H/o preserved EF, new progressed pulmonary edema and clinical picture consistent with volume overload. Requiring BIPAP in the ER. Lasix 40mg IV given. Will be cautious with additional diuretics--next dose in am--as patient is hypotensive. If hypotension develops will give additional fluids and pressor of choice would be norepinephrine if needed. Cont home Toprol XL, ASA. Echo in am. Cardiology consulted. (3) Demand ischemia of myocardium: Plan: Elevated troponin, however, clinical picture and EKG is not supportive of ACS. Suspect demand ischemia in setting of acute heart failure with hypotension. Trend trop q6hrs. Cardiology consulted. Echo ordered. (4) Elevated transaminase level: Plan: Likely related to poor flow/shock liver picture. Doubt primary liver pathology. Cont treatment above and repeat LFTs in am. Hold amiodarone, atorvastatin, zetia. (5) Acute kidney failure, unspecified: Plan: Likely related to heart failure with hypotension which may have been present overnight. Optimization of heart function per plan above and repeat BMP in am. Avoid nephrotoxi substances such as contrast or NSAIDs and renally dose medications as appropriate (6) Abnormal finding on urinalysis: Plan: Temp 37.8 on admission, improved with APAP. UA reveals 1+ LE, WBC 10-30 althought ++epis suggeting contamination of sample. In setting of fever and overall clinical picture will add broad spectrum abx. Chose Zosyn as this will cover E faecalis, foudn in low amounts on a recent urine culture. Patient is notably asymptomatic for any urinary tract infection, he does not appear septic but this may be evolving and supportive of this is a negative procalcitonin. (7) Chronic right heart failure: Plan: requires 2LPM oxygen at baseline for chronic respiratory failure 2/2 RHF 2/2 pulm HTN. Hold Revatio in setting of hypotension. (8) CAD (coronary atherosclerotic disease): Plan: Chronic, stable. No evidence of ACS. Cont ASA, BB. Hold statin as above. (9) PVD (peripheral vascular disease): Plan: Cont medical therapy. H/o stents to bilateral lower extremities. (10) Anemia: Plan: h/o hematuria with cystoscopy with cystourethral dilation, clot evacuation and extensive fulguration by Dr. Turcios in Feb 2021. He also was recently hospitalized with excessive phlebotomy in the last month. Multi-factorial anemia which is not changed much. Cont to monitor. No transfusion needed at this time. (11) PAF (paroxysmal atrial fibrillation): Plan: presents in sinus rhythm today. Holding amiodarone in setting of elevated liver enzymes. Cont monitoring on telemetry. 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 (12) Recurrent falls: Plan: PT/OT to assess. Although patient was to go home with 24 hr supervision, per his son, that is just not feasible. At this point, all are on board with SNF placement for at least a couple of weeks in order to recondition physicially. (13) Pulmonary hypertension: Plan: Holding Revatio in setting of hypotension. (14) Malnutrition: Plan: Nutrition to see. (15) DVT prophylaxis: Plan: Heparin Full Code-confirmed by patient and his son on admission. Dispo-to PCU DO Davida Morris Hospitalist History of Present Illness Chief Complaint: found down at home, altered and hypoxic by family. Primary Care Provider: Henry Campbell MD 80 yo M with multiple medical problems presents being found sonw, hypoxic at home by his son, Jayson. He was found in his bed and had been incontinent of urine, however, to Jayson it appeared as though he was trying to use a bedside urinal and wsa too weak to complete the task. The patient does have a h/o seizures and is taking Keppra 500mg BID. He was found hypoxic with an oxygen saturation in the 50s, per EMS he was 94% on arrival. He was initially confused on arrival to the ER, but was improved after initial treatment. He reports falling into the coffee table backwards and hitting his head and backside. As he was found in bed, he somehow made it back to the bed, however, he doesn't remember the details and then his oxygen supplementation (typically on 2LPM continuously) was off his face possibly overnight. On arrival to the ER, his blood pressure was 108/50. He was placed on 8 LPM of oxygen and a CXR revealed evidence of pulmonary edema. Physical exam was consistent with fluid overload, and he was placed on BIPAP with improvement in his oxygen saturation. He was given Lasix 40mg IV and a rand catheter was placed. He denies any issues with SOB over the past couple of days. He denies any weight gain and states that he weighs himself daily with recent weight of 152 lbs. He denies any coughing, fevers or chills, however, temp was 37.8 this morning. He denies any UTI symptoms including no dysuria, flank pain or urinary urgency or frequency recently. He denies abdominal pain or fullness, and denies any changes in his bowel movements including no blood per rectum. Trop was elevated to 2.48 and his EKG reveals a paced rhythm with no evidence of acute ischemia. LFTs are elevated with AST 528, ALT 427 and he has an VENKATA with a BUN/creat of 28/1.9, baseline creatinine is 1.0. Shortly after Lasix was given his BP fell to 90/47. He was placed in T frances position and given a small amount of NSS with return of his pressure to 111 systolic. His mental status remained clear and whe was answering questions appropriately during this time. Pressor therapy with norepinephrine was consid ered, however, not needed wtih improvement with IVF. Son was at bedside and the patient is a confirmed full code. Allergies Allergy/AdvReac Type Severity Reaction Status Date / Time bee venom protein (honey bee) Allergy Severe ANAPHYLAXIS-YELLOW Verified 06/25/21 13:52 JACKETS lorazepam AdvReac Mild oversedation Verified 06/25/21 13:52 from AWSS protocol Uncoded Nonscreenable Allergy Severe All Uncoded 06/25/21 13:52 Allergen IV's must be administered thru 0.2mic in-line filter Home Medications Medication Instructions Recorded Confirmed Type atorvastatin 20 mg tablet 20 mg PO HS 02/18/21 06/25/21 History epinephrine 0.3 mg/0.3 mL 0.3 mg IM DIRECTED PRN 02/18/21 06/25/21 History injection, auto-injector (EpiPen) ezetimibe 10 mg tablet 10 mg PO DAILY 02/18/21 06/25/21 History furosemide 40 mg tablet 20 mg PO MoWeFr@0900 02/18/21 06/25/21 History levetiracetam 500 mg tablet 500 mg PO BID 02/18/21 06/25/21 History sildenafil (pulm.hypertension) 20 20 mg PO BID 02/18/21 06/25/21 History mg tablet terazosin 10 mg capsule 10 mg PO HS 02/18/21 06/25/21 History amiodarone 200 mg tablet 200 mg PO QAM #30 tab 03/03/21 06/25/21 Rx aspirin 81 mg tablet,delayed 81 mg PO QAM #30 tab 03/03/21 06/25/21 Rx release potassium chloride 20 mEq 20 meq PO QAM #30 tab 03/03/21 06/25/21 Rx tablet,extended release(part/cryst) gabapentin 400 mg capsule 400 mg PO HS #0 cap 06/09/21 06/25/21 Rx amlodipine 10 mg tablet 10 mg PO DAILY 06/25/21 06/25/21 History finasteride 5 mg tablet 5 mg PO DAILY 06/25/21 06/25/21 History metoprolol succinate 50 mg 75 mg PO BID 06/25/21 06/25/21 History tablet,extended release 24 hr Past Med/Surg History Medical History Acute hyponatremia Anemia Atrial fibrillation, new onset Atrial septal defect, secundum CAD (coronary atherosclerotic disease) Carotid artery stenosis Chronic diastolic CHF (congestive heart failure), NYHA class 3 Complete heart block, post-surgical Elevated troponin Generalized muscle weakness Gout H/O alcohol dependence Hematuria Hypokalemia Lumbar radiculopathy Moderate aortic stenosis Orthostasis PAF (paroxysmal atrial fibrillation) new onset Feb 2021, not on AC due to hematuria and anemia, when that was resolved, again taken off AC due to recurrent falls. 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 King Status post lumbar surgery 2014 Social History Smoking Status: Former smoker Tobacco Type: Cigarettes Second Hand Exposure: No; Hx Alcohol Use: Yes Alcohol type: beer Hx Substance Use: No Preferred Language: Sammarinese Communication Ability: Effective Qa Automation Architect Required: No Beliefs That Will Affect Care: None marital status: Current Living Situation: Spouse How many Children do You have: 1 Feels Safe at Home: Yes Assistive Devices: Walker Review of Systems Review of Systems: All systems were reviewed and negative except as indicated on HPI above. Physical Exam Physical Exam: CONSTITUTIONAL: WNWD, vitals as above, generally ill- appearing. EYES: normal conjunctivae, no scleral icterus, ENT: external ear and nose normal, BIPAP mask in place. NECK: trachea midline, RESPIRATORY: crackles and diminished breath sounds at the bases bilaterally, no rales or wheezes, normal respiratory effort CARDIOVASCULAR: regular rate and rhythm, S1 and 2 heard without murmurs, gallops or rubs, no JVD, no peripheral edema CHEST: inspection of chest was normal GASTROINTESTINAL: soft, nontender, ND, no guarding MUSCULOSKELETAL: strength 5/5 throughout, head is normocephalic and atraumatic, SKIN: warm and dry NEUROLOGIC: CN 2-12 grossly intact, no sensory deficit, normal cognition, normal speech, no tremor PSYCHIATRIC: alert cooperative and oriented to person, place and time. Results & Data Results & Data ([facility]) Vital Signs (Past 12 Hours) Vital Signs Temp Pulse Resp BP Pulse Ox 06/25/21 12:18 37.5 C 06/25/21 12:15 74 12 90/47 L 98 06/25/21 12:12 73 20 98 06/25/21 12:00 72 24 95/40 L 96 06/25/21 11:45 74 18 96/44 L 96 06/25/21 11:33 77 25 H 100/43 L 97 06/25/21 11:30 77 22 06/25/21 11:26 78 25 H 06/25/21 11:00 81 25 H 107/61 96 06/25/21 10:49 80 38 H 94 06/25/21 10:45 81 28 H 103/49 L 77 L 06/25/21 10:30 83 29 H 99/47 L 06/25/21 10:15 84 21 108/50 L 95 06/25/21 10:11 83 29 H 104/56 L 93 06/25/21 10:00 37.8 C H 86 32 H 99/38 L 89 L 06/25/21 09:58 98 H 27 H 86 L Laboratory Results Short CBC 06/25/21 Range/Units 10:15 WBC 8.85 (4.8-10.8) K/uL Hgb 8.7 L (14.0-18.0) g/dL Hct 27.8 L (42-52) % Plt Count 227 (130-400) K/uL BMP 06/25/21 10:15 Sodium 135 L Potassium 4.9 Chloride 100 Carbon Dioxide 24 BUN 28 H Creatinine 1.90 H Glucose 149 H Calcium 8.4 L Cardiac Enzymes 06/25/21 Range/Units 10:15 Troponin I 2.48 H* (0-0.04) ng/ml Liver Function 06/25/21 Range/Units 10:15 Total Bilirubin 1.5 H (0.2-1.0) mg/dl AST 528 H (13-39) U/L ALT 427 H (7-52) U/L Alkaline Phosphatase 74 (34-104) U/L Albumin 3.4 (3.4-5.0) gm/dl Urine 06/25/21 Range/Units 10:54 Urine Color Dark Yellow Urine Appearance Clear (Clear) Urine pH 5.0 (4.5-7.5) Ur Specific [place] 1.016 (1.000-1.030) Urine Protein 1+ H (Negative) Urine Glucose (UA) Negative (Negative) Diagnostic Findings Chest X-Ray 06/25/21 10:18 XR chest 1V portable HISTORY: Dyspnea COMPARISON: Chest 06/06/2021. FINDINGS: No pneumothorax. The cardiac silhouette is moderately enlarged. An aortic valve stent is noted. The left-sided pacemaker. Cervical spinal fusion hardware. Progressive interstitial/vascular thickening with a few patchy hazy airspace opacities. This likely represents worsening pulmonary edema. IMPRESSION: Cardiomegaly with progression of the moderate pulmonary edema. ACT 112: Negative or not required by law. Electronically signed by: Mihir Flores M.D. 06/25/2021 10:[address] 06/25/21 10:[address] DOSE: 537.48 mGy.cm HISTORY: fall, CHI, eliquis TECHNIQUE: Multiaxial CT images of the head were performed without the use of intravenous contrast. Automated exposure control was utilized for this study. A dose lowering technique was utilized adhering to the principles of ALARA. Comparison: Head CT 06/06/2021. Findings: The paranasal sinuses are clear. Trace bilateral mastoid effusions, unchanged. The calvarium and skull base are intact. There is no mass, hematoma, midline shift, acute infarct. White matter hypodensity is nonspecific but suggestive of microvascular ischemic change. The ventricles and sulci demonstrate mild age-related involutional changes. 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 Impression: No significant change compared to the prior study. No acute intracranial abnormality. ACT 112: Negative or not required by law. Electronically signed by: Mihir Flores M.D. 06/25/2021 11:30 AM Medications Administered Initial treatments given in order in the ER: NSS 100 cc Albuterol 3ml x 1 Acetaminophen 1000mg IV Decadron 6mmg IV ASA 324mg PO x 1 Furosemide 40mg IV x 1 Code Status & VTE Plan VTE Prophylaxis Plan VTE Prophylaxis will be ordered: No (1) Anemia Anemia type: unspecified type Qualified Code(s): D64.9 - Anemia, unspecified
[2021-06-25] MEDS ORDERED: PIPERACILLIN/TAZOBACTAM 3.375 GM in DEXTROSE 5% 100 ML IV ONE (14:00)
[2021-06-25] MEDS ORDERED: POLYETHYLENE (MIRALAX) 17 GM PACK PO PRN (14:02)
--- NOTE | 2021-06-25 14:14 | Cardiology Consultation ---
Date of Consultation June 25, 2021 Assessment & Plan (1) CHF (congestive heart failure): (2) Acute hypotension: (3) Demand ischemia of myocardium: Acute decompensation, acute on chronic diastolic heart failure: Patient with likely multifactorial respiratory insufficiency, with history of pulmonary hypertension, late percutaneous ASD closure, diastolic heart failure. Laboratories suggest some degree of intravascular volume depletion with creatinine of 1.9, however this may be related to recent hypoxia. Agree with cautious empiric antibiotic therapy. Patient has received 40 mg of furosemide. Although additional IV fluid may prove useful, I think for right now, it is prudent to allow his intake and output to run equal. I do not think his presentation is suggestive of an acute intra coronary thrombotic event, and the elevated troponin is likely due to hypoxia with myocardial strain. Plan to repeat echocardiogram tomorrow to allow time for his respiratory status to improve and to allow for more diagnostic study. With regards to the elevated liver function test, perhaps related to elevated cardiac filling pressures and hypoxia. I think would be reasonable to hold his amiodarone today in the short-term to trend the LFTs, would have low threshold for reinitiate amiodarone in hopes to maintain sinus rhythm. History of Present Illness Attending Physician: Anushka Cavazos, DO History of Present Illness Mr Dunham is an 80 year old male seen in cardiology consultation per the request of Dr Cavazos for the evaluation of CHF, respiratory distress and hypotension. Patient well known to the undersigned. He has a complex past and recent cardiac history as summarized below. Patient was found by his son today with profound weakness and shortness of breath. His oxygen saturation at home was reportedly in the 50s, off of his supplemental oxygen, but by the time EMS arrived, pulse oximetry was up to 94%. Upon arrival to the emergency department, hypotension with systolic blood pressure in the 80s to 90s noted, pulmonary edema pattern noted on chest x-ray. He was placed on BiPAP support, and received 40 mg of furosemide, with the time he was assessed by the undersigned, pulse oximetry was in the range of 94 to 98% on BiPAP, systolic blood pressure was 111, and he was comfortable. Telemetry and EKG reveal AV sequential paced rhythm. Of note, at the time of recent hospitalization at [facility] in May,, hemoglobin was down to 7.4. Eliquis has therefore since been discontinued, and with regards to his history of atrial fibrillation, he has remained in sinus rhythm on amiodarone, with plans to follow his atrial fibrillation burden on device interrogations. Past Cardiac History 1.ASD, status post percutaneous closure 12/14/2017, [facility] with Dr. King 2.Severe aortic stenosis a.Status post TAVR 03/29/2021 with 23 mm Jaramillo Mariano valve b.Developed complete heart block postprocedure, status post permanent pacemaker 03/31/2021 3.Hypertension 4.Chronic with new left ventricular systolic dysfunction leading up to TAVR procedure, post procedure ejection fraction has normalized a.Chronic diastolic CHF, NYHA class 3 b.Right heart failure due to pulmonary hypertension- on Revatio c.Recent diagnosis of heart failure with reduced ejection fraction- in the setting of AFib with RVR and severe aortic stenosis, 02/2021 5.CAD, mild nonobstructive disease. a.Status post left heart catheterization 12/2017, left dominant with minimal nonobstructive luminal disease. b.Status post left and right heart catheterization 03/23/2021 at [facility], Left circumflex is dominant with a mid 30% stenosis, lad with minimal luminal irregularities, RCA small, non dominant and angiographically normal. 6.New onset paroxysmal atrial fibrillation 02/2021, not currently on anticoagulation due to krystin hematuria and anemia. On amiodarone and metoprolol 7.Status post lumbar surgery, 2014 8.PVD, status post stents to bilateral lower extremities 9.Carotid artery stenosis, following with vascular 10.Nocturnal hypoxia with O2 use 11.Former smoker, 1 pack per day- quit 40 years ago 12.History of prostate cancer/hematuria. Allergies Allergy/AdvReac Type Severity Reaction Status Date / Time bee venom protein (honey bee) Allergy Severe ANAPHYLAXIS-YELLOW Verified 06/25/21 13:52 JACKETS lorazepam AdvReac Mild oversedation Verified 06/25/21 13:52 from AWSS protocol Uncoded Nonscreenable Allergy Severe All Uncoded 06/25/21 13:52 Allergen IV's must be administered thru 0.2mic in-line filter Home Medications Medication Instructions Recorded Confirmed Type atorvastatin 20 mg tablet 20 mg PO HS 02/18/21 06/25/21 History epinephrine 0.3 mg/0.3 mL 0.3 mg IM DIRECTED PRN 02/18/21 06/25/21 History injection, auto-injector (EpiPen) ezetimibe 10 mg tablet 10 mg PO DAILY 02/18/21 06/25/21 History furosemide 40 mg tablet 20 mg PO MoWeFr@0900 02/18/21 06/25/21 History levetiracetam 500 mg tablet 500 mg PO BID 02/18/21 06/25/21 History sildenafil (pulm.hypertension) 20 20 mg PO BID 02/18/21 06/25/21 History mg tablet terazosin 10 mg capsule 10 mg PO HS 02/18/21 06/25/21 History amiodarone 200 mg tablet 200 mg PO QAM #30 tab 03/03/21 06/25/21 Rx aspirin 81 mg tablet,delayed 81 mg PO QAM #30 tab 03/03/21 06/25/21 Rx release potassium chloride 20 mEq 20 meq PO QAM #30 tab 03/03/21 06/25/21 Rx tablet,extended release(part/cryst) gabapentin 400 mg capsule 400 mg PO HS #0 cap 06/09/21 06/25/21 Rx amlodipine 10 mg tablet 10 mg PO DAILY 06/25/21 06/25/21 History finasteride 5 mg tablet 5 mg PO DAILY 06/25/21 06/25/21 History metoprolol succinate 50 mg 75 mg PO BID 06/25/21 06/25/21 History tablet,extended release 24 hr Patient History Medical History Acute hyponatremia Anemia Atrial fibrillation, new onset Atrial septal defect, secundum CAD (coronary atherosclerotic disease) Carotid artery stenosis Chronic diastolic CHF (congestive heart failure), NYHA class 3 Complete heart block, post-surgical Elevated troponin Generalized muscle weakness Gout H/O alcohol dependence Hematuria Hypokalemia Lumbar radiculopathy Moderate aortic stenosis Orthostasis PAF (paroxysmal atrial fibrillation) new onset Feb 2021, not on AC due to hematuria and anemia, when that was resolved, again taken off AC due to recurrent falls. 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 King Status post lumbar surgery 2014 Social History Smoking Status: Former smoker Tobacco Type: Cigarettes Second Hand Exposure: No; Hx Alcohol Use: No Hx Substance Use: No Preferred Language: Armenian Communication Ability: Effective Clinical Supervisor Required: No Beliefs That Will Affect Care: None marital status: Current Living Situation: Spouse Current Living Situation Comment: Lives with who is currently admitted to the hospital How many Children do You have: 1 Feels Safe at Home: Yes Safety Concerns: Feels Safe At This Time Assistive Devices: Cane and Walker Review of Systems Review of Systems: Other (Unable to obtain comprehensive review of systems, due to respiratory distress, BiPAP) Physical Exam Physical Exam: Temp Pulse Resp BP Pulse Ox 37.5 C 68 18 113/51 L 96 06/25/21 12:18 06/25/21 14:30 06/25/21 14:30 06/25/21 14:30 06/25/21 14:30 Constitutional: + ill appearing (Chronically ill in appearance) Respiratory: Mildly decreased breath sounds at the bases Cardiovascular: Rate/Rhythm: regular rate Heart Sounds: no murmur Extremities: no edema Gastrointestinal (Abdomen): normal bowel sounds, soft, nontender, no hepatosplenomegaly Neurologic: Conversant, follows commands Results & Data ([facility]) Vital Signs (Past 12 Hours) Vital Signs Temp Pulse Resp BP Pulse Ox 06/25/21 12:18 37.5 C 06/25/21 12:15 74 12 90/47 L 98 06/25/21 12:12 73 20 98 06/25/21 12:00 72 24 95/40 L 96 06/25/21 11:45 74 18 96/44 L 96 06/25/21 11:33 77 25 H 100/43 L 97 06/25/21 11:30 77 22 06/25/21 11:26 78 25 H 06/25/21 11:00 81 25 H 107/61 96 06/25/21 10:49 80 38 H 94 06/25/21 10:45 81 28 H 103/49 L 77 L 06/25/21 10:30 83 29 H 99/47 L 06/25/21 10:15 84 21 108/50 L 95 06/25/21 10:11 83 29 H 104/56 L 93 06/25/21 10:00 37.8 C H 86 32 H 99/38 L 89 L 06/25/21 09:58 98 H 27 H 86 L Laboratory Results Cardiac Enzymes 06/25/21 Range/Units 10:15 AST 528 H (13-39) U/L Troponin I 2.48 H* (0-0.04) ng/ml CBC 06/25/21 Range/Units 10:15 WBC 8.85 (4.8-10.8) K/uL RBC 3.32 L (4.7-6.1) M/uL Hgb 8.7 L (14.0-18.0) g/dL Hct 27.8 L (42-52) % Plt Count 227 (130-400) K/uL Neut # (Auto) 7.56 H (1.4-6.5) K/uL Lymph # (Auto) 0.62 L (1.2-3.4) K/uL Travis # (Auto) 0.63 H (0.11-0.59) K/uL Eos # (Auto) 0.00 (0-0.5) K/uL Baso # (Auto) 0.01 (0-0.2) K/uL Comprehensive Metabolic Panel 06/25/21 Range/Units 10:15 Sodium 135 L (136-145) mmol/L Potassium 4.9 (3.5-5.1) mmol/L Chloride 100 (98-107) mmol/L Carbon Dioxide 24 (21-32) mmol/L BUN 28 H (6-23) mg/dl Creatinine 1.90 H (0.6-1.4) mg/dl Glucose 149 H (70-99(Fasting)) mg/dl Calcium 8.4 L (8.5-10.1) mg/dl AST 528 H (13-39) U/L ALT 427 H (7-52) U/L Alkaline Phosphatase 74 (34-104) U/L Total Protein 6.4 (6.0-8.3) gm/dl Albumin 3.4 (3.4-5.0) gm/dl Intake and Output 06/24/21 06/25/21 06/25/21 22:59 06:59 14:59 Intake Total 300 / 300 Balance 300 / 300 Intake: IV 300 / 300 Acetaminophen 1,000 mg In 100 100 / 100 ml @ 400 mls/hr IV NOW STA Rx#: [id number] Sodium Chloride 0.9% 1000ML 1, 200 / 200 000 ml @ 100 mls/hr IV .Q10H [facility] Rx#:[id number] Other: Weight 66.3 kg Weight Measurement Method Built in [facility] Patient Weight 06/26/21 06:59 Weight 66.3 kg Diagnostic Findings EKG performed 06/25/2021 reveals sinus rhythm with ventricular paced QRS complexes at 86 bpm. No significant repolarization changes to suggest ischemia. Most recent echocardiogram, having been reviewed by the undersigned on 05/03/2021: There was normal sinus rhythm during the examination. The LV wall thickness is mildly increased (concentric). The left ventricular wall motion is normal. Calculated LV ejection Fraction = 61% (three dimensional volumes). The right ventricular chamber size and systolic function are normal. The left ventricular diastolic function is moderately abnormal (grade II). The patient is status post TAVR with Mariano type prosthetic valve. The prosthetic aortic valve leaflets are well visualized with normal excursion. Significant aortic valve prosthesis regurgitation is absent. Aortic valve prosthesis stenosis is absent. Mild mitral regurgitation is present. Mild tricuspid regurgitation is present. There is an ASD occluder device noted with residual left to right shunting by color flow Doppler noted posterior to the device. Mild pulmonary hypertension is present. The estimated pulmonary artery systolic pressure is 35-45 mm Hg. Compared to the prior study dated 03/31/21 , there has been interval placement of a dual chamber pacemaker. There has been an interval improvement in the left ventricular systolic function compared to prior and immediately following the TAVR procedure in March,. There has been an interval improvement in the pulmonary artery systolic pressure. (1) CHF (congestive heart failure) Heart failure chronicity: acute on chronic Heart failure type: unspecified Qualified Code(s): I50.9 - Heart failure, unspecified
--- NOTE | 2021-06-25 14:23 | Ultrasound Report ---
ABDOMINAL ULTRASOUND, RIGHT UPPER QUADRANT HISTORY: elevated LFT. COMPARISON: None. FINDINGS: Pancreas: The pancreatic tail is obscured by overlying bowel gas. The remaining portions of the pancr eas are within normal limits. Liver: Unremarkable. Gallbladder: No gallbladder wall thickening. No gallstones. CBD: 5 mm. Right kidney: There are 2 cysts with the largest measuring 4.4 cm. Miscellaneous: Small right pleural effusion. IMPRESSION: 1. Normal gallbladder. No gallstones. 2. Right renal cyst. 3. Small right pleural effusion. ACT 112: Negative or not required by law. Electronically signed by: Mihir Flores M.D. 06/25/2021 2:22 PM
[2021-06-25] MEDS: METOPROLOL SUCC 25MG EXT REL TAB PO SCH (21:32)
[2021-06-25] MEDS: levETIRAcetam 500 MG TAB PO SCH (21:32)
[2021-06-25] MEDS: GABAPENTIN 400 MG CAP PO SCH (21:32)
[2021-06-25] MEDS: PIPERACILLIN/TAZOBACTAM 3.375 GM in DEXTROSE 5% 100 ML IV SCH (21:32)
[2021-06-25] MEDS ORDERED: HEPARIN SOD 5,000 UNIT/0.5 ML VIAL SQ SCH (22:00)
[2021-06-25] MEDS ORDERED: Heparin IV Adult Wt-Based Standard *NO* Bolus Protocol IV ONE (23:26)
[2021-06-26 00:26] LABS: Partial Thromboplastin Ratio 1.2; Partial Thromboplastin Time 30.9 Seconds (21.0-31.0)
[2021-06-26] MEDS: HEPARIN SODIUM/DEXTROSE 25,000 UNITS/500 ML BAG IV SCH ×3 (00:34→21:15)
[2021-06-26] MEDS: PIPERACILLIN/TAZOBACTAM 3.375 GM in DEXTROSE 5% 100 ML IV SCH ×3 (06:24→21:15)
[2021-06-26 06:57] LABS: Partial Thromboplastin Ratio 1.2; Partial Thromboplastin Time 30.6 Seconds (21.0-31.0)
[2021-06-26 07:10] LABS: Hematocrit (blood only) 27.5 % (42-52); Hemoglobin 8.8 g/dL (14.0-18.0); Mean Corpuscular Hemoglobin 26.3 pg (25-34); Mean Corpuscular Volume 82.1 fL (80-100); Mean Platelet Volume 8.7 fL (7.4-10.4); Platelet Count 227 K/uL (130-400); RDW Coefficient of Variation 16.4 % (11.5-14.5); RDW Standard Deviation 49.9 fL (36.4-46.3); Red Blood Count 3.35 M/uL (4.7-6.1)
[2021-06-26 07:14] LABS: BUN Creatinine Ratio 22.9 (10-20); Bilirubin Direct 0.2 mg/dl (0-0.2); Bilirubin,Total 0.9 mg/dl (0.2-1.0); Calcium 8.2 mg/dl (8.5-10.1); Creatinine Clr Calc Pharmacy 36.4 ml/min; Est GFR (African American) 58.4 ml/min; Est GFR (Non-African American) 50.3 ml/min; Potassium 3.6 mmol/L (3.5-5.1); Total Protein 5.9 gm/dl (6.0-8.3)
[2021-06-26] MEDS ORDERED: HEPARIN SOD (PORCINE) 1000 UNIT/ML ONE (07:32)
[2021-06-26] MEDS ORDERED: VANCOMYCIN CONSULT ACTIVE PRN (08:00)
[2021-06-26] MEDS: FINASTERIDE 5 MG TAB PO SCH (08:23)
[2021-06-26] MEDS: amLODIPine BESYLATE 5 MG TAB PO SCH (08:23)
[2021-06-26] MEDS: ASPIRIN 81 MG ECTAB PO SCH (08:23)
[2021-06-26] MEDS: levETIRAcetam 500 MG TAB PO SCH ×2 (08:23→21:16)
[2021-06-26] MEDS: FUROSEMIDE 40 MG/4 ML VIAL IV SCH (08:23)
[2021-06-26] MEDS: METOPROLOL SUCC 25MG EXT REL TAB PO SCH ×2 (08:24→21:16)
[2021-06-26] MEDS: POTASSIUM CHLORIDE CRTAB 20 MEQ TABCR PO SCH (08:25)
[2021-06-26] MEDS ORDERED: VANCOMYCIN HCL 1,500 MG in SODIUM CHLORIDE 0.9% 500 ML IV ONE (08:30)
[2021-06-26] MEDS ORDERED: VANCOMYCIN HCL 500 MG in DEXTROSE 5% 100 ML IV SCH (09:00)
--- NOTE | 2021-06-26 12:09 | Cardiology Progress Note ---
Date of Service June 26, 2021 Assessment & Plan (1) CHF (congestive heart failure): (2) Acute hypotension: (3) Demand ischemia of myocardium: (4) Bacteremia: Plan: Troponin I: 2.48--> 16.13--> 9.59 ng/ml -History of minimal nonobstructive coronary heart disease on pre-TAVR cardiac catheterization. -The patient's troponin elevation is not likely due to an acute intracoronary thrombotic event, but likely due to demand ischemia in the setting of hypotension, hypoxia, LV strain EKG 06/26/2021, sinus rhythm with ventricular paced QRS complexes. Echocardiogram 06/26/2021, normal LVEF, no regional wall motion abnormalities, grade 2 diastolic dysfunction, moderate pulmonary hypertension. Creatinine: 1.9-->1.31 AST 529-->375 ALT 427-->360 Micro: Gram-positive cocci in chains, / blood cultures, (history of Enterococcus faecalis in the urine 06/07/2021). Afebrile, procalcitonin negative. Patient with likely multifactorial respiratory insufficiency, with history of pulmonary hypertension, late percutaneous ASD closure, diastolic heart failure. -Continue Zosyn. -Continue unfractioned heparin, although I do not think his troponin elevation is due to an intra coronary plaque rupture, hemoglobin is stable, and given history of paroxysmal atrial fibrillation I think heparin is reasonable.- Continue Zosyn, day 2. -Furosemide 40 mg daily. -Elevated LFTs likely due to transient hypoperfusion, resume amiodarone, to prevent the patient from going back into atrial fibrillation. Admission and Anticipated Discharge Date Admission Date: June 25, 2021 Subjective Mr Dunham is seen in cardiology follow-up of respiratory distress, hypoxia, hypotension. He is off of BiPAP, and is comfortable with supplemental oxygen 2 L/min via nasal cannula, with pulse oximetry of 95%. Blood pressure much improved, most recent measurement 132/51. Creatinine, liver function tests have trended toward improvement. He denies any symptoms suggestive of angina at present. Physical Exam Physical Exam: Temp Pulse Resp BP Pulse Ox 36.9 C 69 18 132/51 L 95 06/25/21 15:05 06/26/21 07:02 06/26/21 07:02 06/26/21 07:02 06/26/21 07:02 Constitutional: + ill appearing (Chronically ill in appearance); no acute distress Respiratory: Mildly decreased breath sounds bilaterally at the bases Cardiovascular: Rate/Rhythm: regular rate Heart Sounds: no murmur Extremities: no edema Gastrointestinal (Abdomen): normal bowel sounds, soft, nontender, no hepatosplenomegaly Neurologic: PERRL, EOMI, accommodation nl, no face palsy, no dysarthria (1) CHF (congestive heart failure) Heart failure chronicity: acute on chronic Heart failure type: unspecified Qualified Code(s): I50.9 - Heart failure, unspecified
[2021-06-26] MEDS: AMIODARONE 200 MG TAB PO SCH (14:50)
[2021-06-26 15:02] LABS: Partial Thromboplastin Ratio 2.8
[2021-06-26 15:09] LABS: Partial Thromboplastin Time 74.4 Seconds (21.0-31.0)
[2021-06-26] MEDS: GABAPENTIN 400 MG CAP PO SCH (21:16)
[2021-06-26] MEDS: ACETAMINOPHEN 325 MG TAB PO PRN (21:22)
--- NOTE | 2021-06-26 21:53 | Communication Note ---
Date of Service: June 26, 2021
[2021-06-26 22:27] LABS: Hematocrit (blood only) 28.3 % (42-52); Immature Granulocytes # (auto) 0.04 K/uL (0.00-0.02); Immature Granulocytes % (auto) 0.3 %; Lymphocytes # (auto) 0.71 K/uL (1.2-3.4); Lymphocytes % (auto) 5.9 %; Mean Corpuscular Hgb Conc 31.8 g/dL (32-36); Mean Corpuscular Volume 81.8 fL (80-100); Mean Platelet Volume 8.9 fL (7.4-10.4); Monocytes # (auto) 0.71 K/uL (0.11-0.59); Monocytes % (auto) 5.9 %; Neutrophils # (auto) 10.67 K/uL (1.4-6.5); Neutrophils % (auto) 87.9 %; Platelet Count 268 K/uL (130-400); RDW Coefficient of Variation 16.2 % (11.5-14.5); RDW Standard Deviation 48.1 fL (36.4-46.3); Red Blood Count 3.46 M/uL (4.7-6.1); White Blood Count 12.13 K/uL (4.8-10.8)
--- NOTE | 2021-06-26 22:31 | Hospitalist Progress Note ---
Date of Service June 26, 2021 Assessment & Plan (1) Acute respiratory failure: (2) Chronic right heart failure: (3) Acute heart failure with preserved ejection fraction: Plan: Mostly due to to acute heart failure with pulmonary edema Cardiomegaly with progression of the moderate pulmonary edema. Patient was required BiPAP in the ER. Lasix 40 mg IV given in the ER Cardiology on board recommend to continue IV Lasix 40 mg daily Echo showed no regional wall motion abnormality with ejection fraction 60 to 65% Continue oxygen supplement Continue monitor intake and output Continue to monitor closely (4) Elevated troponin: Plan: Possible Type 2 IL due to demand ischemia Troponin peak to 16 now trending down to 9.59 EKG showed no acute ischemic changes Echo showed no wall motion abnormality Denies any chest pain Currently on IV heparin drip Cardiology on board Continue aspirin and metoprolol Continue monitor closely (5) Bacteremia: Plan: Blood culture grew gram-positive cocci in cluster Currently on IV Zosyn and IV vancomycin added Will repeat blood culture tomorrow We will consult ID Continue monitor closely (6) Elevated transaminase level: Plan: Likely related to poor hypotension/shock liver picture. Liver enzymes on admission with AST above 500 and ALT 427 Liver ultrasound negative Continue to hold atorvastatin, zetia. LFT today with AST 375 and ALT 360 Continue to avoid hepatotoxic agent Continue monitor LFT (7) Acute kidney failure, unspecified: Plan: Creatinine on admission 1.9 Creatinine this morning 1.3 Continue to avoid nephrotoxic agent Monitor BMP (8) CAD (coronary atherosclerotic disease): Plan: Denies any chest pain no evidence of ACS. Cont ASA, BB. Hold statin due to elevate LFT (9) PVD (peripheral vascular disease): Plan: Cont medical therapy. H/o stents to bilateral lower extremities. (10) Anemia: Plan: h/o hematuria with cystoscopy with cystourethral dilation, clot evacuation and extensive fulguration by Dr. Turcios in Feb 2021. Hemoglobin stable at 9 Continue monitor CBC (11) PAF (paroxysmal atrial fibrillation): Plan: Rate controlled on amiodarone Stable (12) Recurrent falls: Plan: PT/OT eval Fall precaution (13) Pulmonary hypertension: Plan: Holding Revatio in setting of hypotension. Will resume since BP improved (14) DVT prophylaxis: Plan: Heparin drip Full Code Admission and Anticipated Discharge Date Admission Date: June 25, 2021 Subjective Patient was seen and examined for follow-up of respiratory failure Lying in bed with mild respiratory distress on Ventimask Patient said that he feels very weak Denies any chest pain, palpitation, dizziness, and fever Review of Systems Review of Systems: All systems reviewed & are unremarkable except as noted in Subjective Physical Exam Physical Exam: General- No acute distress Head- atraumatic Eyes- PERRL, EOMI, ENT- oropharynx clear Neck- supple, no JVD Lungs- +coarse BS Heart- regular rhythm; no murmur Abdomen- normal bowel sounds, soft, nontender Extremities- no calf tenderness Neuro- alert, oriented x 3; PERRL, EOMI; no facial palsy; no dysarthria Skin- warm & dry Results & Data Results & Data ([facility]) Vital Signs (Past 12 Hours) Vital Signs Temp Pulse Pulse Resp BP Pulse Ox 06/26/21 22:29 36.5 C 64 16 103/42 L 97 06/26/21 19:16 36.4 C L 64 20 112/59 L 93 06/26/21 18:26 36.5 C 66 18 107/67 94 (1) Anemia Anemia type: unspecified type Qualified Code(s): D64.9 - Anemia, unspecified
--- NOTE | 2021-06-26 22:59 | CT Scan Report ---
CT humerus LT wo con CLINICAL HISTORY: Left arm swelling. COMPARISON STUDY: No previous studies for comparison. CT DOSE: 923.49 mGy.cm TECHNIQUE: Standard CT of the left upper arm is performed without IV contrast. Multiplanar reconstruc tion is performed. A dose lowering technique was utilized adhering to the principles of ALARA. FINDINGS: Bones: There is no evidence for an acute fracture or dislocation. There are no lytic or blastic lesio ns. Joints: The joint spaces are maintained. The bones are in anatomic alignment. Soft tissues: There is homogeneous signal demonstrated within the muscles of the upper arm on these limited noncontrast images. However, there is fluid seen in the deep fascial plane of the mid to lowe r upper arm. Additionally, subcutaneous edema representing cellulitis is also present surrounding the mid to lower left upper arm. IMPRESSION: No acute osseous pathology. There is fluid in the deep fascial plane and diffuse cellulit is involving the mid to lower upper arm. ACT 112: Negative or not required by law. Electronically signed by: Rickey Dias M.D. 06/26/2021 10:58 PM
--- NOTE | 2021-06-26 23:03 | CT Scan Report ---
CT forearm LT wo con CLINICAL HISTORY: Left forearm swelling COMPARISON STUDY: No previous studies for comparison. CT DOSE: TECHNIQUE: Standard CT of the left forearm is performed without IV contrast. Multiplanar reconstructi on is performed. A dose lowering technique was utilized adhering to the principles of ALARA. FINDINGS: Bones: There is no evidence for an acute fracture or dislocation. There are no lytic or blastic lesio ns. Joints: The joint spaces are maintained. The bones are in anatomic alignment. Soft tissues: There is homogeneous attenuation demonstrated within the muscles of the forearm on the se limited noncontrast images. However, there is fluid seen within the deep fascial plane surrounding the muscles of the forearm. Is also subcutaneous edema and skin thickening in the findings character istic of cellulitis. IMPRESSION: No acute osseous pathology. Fluid within the deep fascial planes surrounding the muscles of the forearm. There is also cellulitis and skin thickening present. ACT 112: Negative or not required by law. Electronically signed by: Rickey Dias M.D. 06/26/2021 11:01 PM
[2021-06-27] MEDS: PIPERACILLIN/TAZOBACTAM 3.375 GM in DEXTROSE 5% 100 ML IV SCH ×3 (06:13→23:44)
[2021-06-27 06:44] LABS: Creatinine Clr Calc Pharmacy 41.5 ml/min; Est GFR (African American) 68.3 ml/min; Est GFR (Non-African American) 58.9 ml/min
[2021-06-27 06:51] LABS: Partial Thromboplastin Ratio 4.7
[2021-06-27 06:54] LABS: Partial Thromboplastin Time 124.2 Seconds (21.0-31.0)
[2021-06-27] MEDS: METOPROLOL SUCC 25MG EXT REL TAB PO SCH ×2 (07:34→20:15)
[2021-06-27] MEDS: amLODIPine BESYLATE 5 MG TAB PO SCH (07:34)
[2021-06-27] MEDS: levETIRAcetam 500 MG TAB PO SCH ×2 (07:34→20:16)
[2021-06-27] MEDS: FINASTERIDE 5 MG TAB PO SCH (07:34)
[2021-06-27] MEDS: POTASSIUM CHLORIDE CRTAB 20 MEQ TABCR PO SCH (07:34)
[2021-06-27] MEDS: AMIODARONE 200 MG TAB PO SCH (07:34)
[2021-06-27] MEDS: ASPIRIN 81 MG ECTAB PO SCH (07:35)
[2021-06-27] MEDS: VANCOMYCIN HCL 1,250 MG in SODIUM CHLORIDE 0.9% 250 ML IV SCH (07:37)
[2021-06-27] MEDS: HEPARIN SODIUM/DEXTROSE 25,000 UNITS/500 ML BAG IV SCH (08:23)
--- NOTE | 2021-06-27 09:16 | Pharmacy Report ---
Pharmacy Vanc AUC Short Note - Date of Service June 27, 2021 - Assessment & Plan Assessment 80 year old M started on vancomycin/zosyn empirically. Patient with multiple medical problems, found to be hypoxic/confused on arrival. Prelim blood cultures with Gm positive cocci in chains. Plan Vancomycin * AUC/ALTAGRACIA is the preferred PK/PD target for vancomycin * AUC guided dosing is effective and associated with decreased risk of nephrotoxicity compared to traditional trough targets * Started on vancomycin 1500 mg x 1, then 1250 mg iv q 24 hrs * This dosing is predicted to achieve a trough ~18 mcg/ml and target AUC/ALTAGRACIA of 400-600. May be associated with 15% toxicity * Scr improving more today, will continue same dosing and order level likely before 4th dose to ensure stable * ID consulted to follow patient Pharmacy will continue to follow and will adjust dose/frequency as necessary. Thank you.
[2021-06-27] MEDS: FUROSEMIDE 40 MG/4 ML VIAL IV SCH (09:36)
[2021-06-27 10:55] LABS: Albumin Level 3.1 gm/dl (3.4-5.0); Bilirubin Direct 0.2 mg/dl (0-0.2); Bilirubin,Total 0.7 mg/dl (0.2-1.0); Potassium 3.8 mmol/L (3.5-5.1)
--- NOTE | 2021-06-27 12:49 | Cardiology Progress Note ---
Date of Service June 27, 2021 Assessment & Plan (1) CHF (congestive heart failure): (2) Acute hypotension: (3) Demand ischemia of myocardium: (4) Bacteremia: Plan: Troponin I: 2.48--> 16.13--> 9.59 ng/ml -History of minimal nonobstructive coronary heart disease on pre-TAVR cardiac catheterization. -The patient's troponin elevation is not likely due to an acute intracoronary thrombotic event, but likely due to demand ischemia in the setting of hypotension, hypoxia, LV strain Echocardiogram 06/26/2021, normal LVEF, no regional wall motion abnormalities, grade 2 diastolic dysfunction, moderate pulmonary hypertension. Discontinue UF heparin. Transition to DVT prophylaxis dose lovenox. Micro: Gram-positive cocci in chains ("probable Enterococcus" per prelim micro report), 06/15 blood cultures, (history of Enterococcus faecalis in the urine 06/07/2021). Afebrile. Patient with likely multifactorial respiratory insufficiency, with history of pulmonary hypertension, late percutaneous ASD closure, diastolic heart failure. -Continue Zosyn, vancomycin. -Proceed with IRENA for evaluation of bacteremia on 06/29/21 if optimized from respirator status at that time. -Furosemide 40 mg daily. -Elevated LFTs likely due to transient hypoperfusion, continue amiodarone, to prevent the patient from going back into atrial fibrillation. Admission and Anticipated Discharge Date Admission Date: June 25, 2021 Subjective Patient seen in cardiology follow up. Off oxygen at the time of my assessment. Awake, oriented, no distress. Appears back to previous baseline in terms of respiratory status. Telemetry reveals SR with ventricular pacing in the 60s. Physical Exam Physical Exam: Temp 37.8 d C on 06/25/21. Afebrile x last 24 hours. Constitutional: + ill appearing (Chronically ill in appearance); no acute distress Cardiovascular: Rate/Rhythm: regular rate Heart Sounds: no murmur Extremities: no edema Gastrointestinal (Abdomen): normal bowel sounds, soft, nontender, no hepatosplenomegaly Neurologic: PERRL, EOMI, accommodation nl, no face palsy, no dysarthria Results & Data ([facility]) Vital Signs (Past 12 Hours) Vital Signs Temp Pulse Resp BP Pulse Ox 06/27/21 11:32 36.5 C 60 18 103/47 L 96 06/27/21 07:38 36.5 C 62 18 128/56 L 97 06/27/21 04:18 36.3 C L 64 16 102/53 L 95 Laboratory Results Cardiac Enzymes 06/27/21 Range/Units 09:59 AST 200 H (13-39) U/L Coagulation 06/26/21 06/27/21 Range/Units 14:22 05:29 APTT 74.4 H* 124.2 H* (21.0-31.0) Seconds CBC 06/26/21 Range/Units 22:11 WBC 12.13 H (4.8-10.8) K/uL RBC 3.46 L (4.7-6.1) M/uL Hgb 9.0 L (14.0-18.0) g/dL Hct 28.3 L (42-52) % Plt Count 268 (130-400) K/uL Neut # (Auto) 10.67 H (1.4-6.5) K/uL Lymph # (Auto) 0.71 L (1.2-3.4) K/uL [place] # (Auto) 0.71 H (0.11-0.59) K/uL Eos # (Auto) 0.00 (0-0.5) K/uL Baso # (Auto) 0.00 (0-0.2) K/uL Comprehensive Metabolic Panel 06/27/21 06/27/21 Range/Units 05:29 09:59 Potassium 3.8 (3.5-5.1) mmol/L Creatinine 1.15 (0.6-1.4) mg/dl Direct Bilirubin 0.2 (0-0.2) mg/dl AST 200 H (13-39) U/L ALT 321 H (7-52) U/L Alkaline Phosphatase 69 (34-104) U/L Total Protein 6.0 (6.0-8.3) gm/dl Albumin 3.1 L (3.4-5.0) gm/dl Intake and Output 06/26/21 06/27/21 06/27/21 22:59 06:59 14:59 Intake Total 381.953 / 1619.453 298.6 / 1619.453 121.667 / 121.667 Output Total 1000 / 2300 450 / 2300 Balance -618.047 / -680.547 -151.4 / -680.547 121.667 / 121.667 Intake: IV 381.953 / 1569.453 298.6 / 1569.453 121.667 / 121.667 Heparin Sodium/Dextrose 25,000 267.233 / 694.733 183.6 / 694.733 0 / 0 units In 500 ml @ 1,200 UNITS/ HR 24 mls/hr IV .[id number] [facility] Rx #:[id number] Piperacillin/Tazobactam 3.375 114.72 / 344.72 115 / 344.72 115 / 115 gm In Dextrose 5% 100 ml @ 28. 75 mls/hr IV Q8H [facility] Rx#: [id number] Vancomycin HCl 1,250 mg In 6.667 / 6.667 Sodium Chloride 0.9% 250 ml @ 200 mls/hr IV Q24H [facility] Rx#: [id number] Output: Urine Amount (Catheter) 1000 / 2300 450 / 2300 [place] 1000 / 2300 450 / 2300 (1) CHF (congestive heart failure) Heart failure chronicity: acute on chronic Heart failure type: unspecified Qualified Code(s): I50.9 - Heart failure, unspecified
[2021-06-27] MEDS: GABAPENTIN 400 MG CAP PO SCH (20:16)
--- NOTE | 2021-06-27 21:37 | Electrocardiogram Report ---
Test Reason : Blood Pressure : / mmHG Vent. Rate : 086 BPM Atrial Rate : 086 BPM P-R Int : 144 ms QRS Dur : 152 ms QT Int : 464 ms P-R-T Axes : 041 134 036 degrees QTc Int : 555 ms Atrial-sensed ventricular-paced rhythm Abnormal ECG When compared with ECG of 07-JUN-2021 01:45, Vent. rate has increased BY 15 BPM Confirmed by Johnathan Hroan ([id number]) on 06/27/2021 9:37:33 PM Referred By: Confirmed By:Johnathan Horan
--- NOTE | 2021-06-27 22:09 | Electrocardiogram Report ---
Test Reason : Blood Pressure : / mmHG Vent. Rate : 066 BPM Atrial Rate : 066 BPM P-R Int : 168 ms QRS Dur : 150 ms QT Int : 550 ms P-R-T Axes : 039 135 051 degrees QTc Int : 576 ms Atrial-sensed ventricular-paced rhythm Abnormal ECG When compared with ECG of 25-JUN-2021 10:01, (unconfirmed) Vent. rate has decreased BY 20 BPM Confirmed by Johnathan Horan ([id number]) on 06/27/2021 10:09:40 PM Referred By: REFERRED SELF Confirmed By:Johnathan Horan
--- NOTE | 2021-06-27 22:18 | Electrocardiogram Report ---
Test Reason : Blood Pressure : / mmHG Vent. Rate : 065 BPM Atrial Rate : 065 BPM P-R Int : 158 ms QRS Dur : 136 ms QT Int : 516 ms P-R-T Axes : 035 136 -06 degrees QTc Int : 536 ms Atrial-sensed ventricular-paced rhythm Abnormal ECG When compared with ECG of 25-JUN-2021 23:37, (unconfirmed) No significant change was found Confirmed by Johnathan Horan ([id number]) on 06/27/2021 10:17:58 PM Referred By: REFERRED SELF Confirmed By:Johnathan Horan
--- NOTE | 2021-06-27 22:44 | Electrocardiogram Report ---
Test Reason : Blood Pressure : / mmHG Vent. Rate : 062 BPM Atrial Rate : 062 BPM P-R Int : 162 ms QRS Dur : 130 ms QT Int : 532 ms P-R-T Axes : 053 136 051 degrees QTc Int : 539 ms Atrial-sensed ventricular-paced rhythm with frequent AV dual-paced complexes Abnormal ECG When compared with ECG of 26-JUN-2021 10:26, (unconfirmed) Vent. rate has decreased BY 3 BPM Confirmed by Johnathan Horan ([id number]) on 06/27/2021 10:44:33 PM Referred By: REFERRED SELF Confirmed By:Johnathan Horan
--- NOTE | 2021-06-27 23:26 | Hospitalist Progress Note ---
Date of Service June 27, 2021 Assessment & Plan (1) Acute respiratory failure: (2) Chronic right heart failure: (3) Acute heart failure with preserved ejection fraction: Plan: Mostly due to to acute heart failure with pulmonary edema Cardiomegaly with progression of the moderate pulmonary edema. Patient was required BiPAP in the ER. Lasix 40 mg IV given in the ER Cardiology on board recommend to continue IV Lasix 40 mg daily Echo showed no regional wall motion abnormality with ejection fraction 60 to 65% Continue oxygen supplement Continue monitor intake and output Continue to monitor closely (4) Elevated troponin: Plan: Possible Type 2 ND due to demand ischemia Troponin peak to 16 now trending down to 9.59 EKG showed no acute ischemic changes Echo showed no wall motion abnormality Denies any chest pain Discontinue IV heparin drip as per cardio Cardiology on board Continue aspirin and metoprolol Continue monitor closely (5) Bacteremia: Plan: Blood culture grew gram-positive cocci in cluster Currently on IV Zosyn and IV vancomycin Follow blood cx on 06/25 sensitivity Repeat blood culture Pending Echo s did not mention any vegetation ID consulted-pending Continue monitor closely (6) Elevated transaminase level: Plan: Likely related to poor hypotension/shock liver picture. Liver enzymes on admission with AST above 500 and ALT 427 Liver ultrasound negative Continue to hold atorvastatin, zetia. LFT continue trending down with AST from 375 to 200 and ALT from 360 to 321 Continue to avoid hepatotoxic agent Continue monitor LFT (7) Acute kidney failure, unspecified: Plan: Creatinine on admission 1.9 Creatinine this morning 1.15 Continue to avoid nephrotoxic agent Monitor BMP (8) CAD (coronary atherosclerotic disease): Plan: Denies any chest pain no evidence of ACS. Cont ASA, BB. Hold statin due to elevate LFT (9) PVD (peripheral vascular disease): Plan: Cont medical therapy. H/o stents to bilateral lower extremities. (10) Anemia: Plan: h/o hematuria with cystoscopy with cystourethral dilation, clot evacuation and extensive fulguration by Dr. Turcios in Feb 2021. Hemoglobin stable at 9 Continue monitor CBC (11) PAF (paroxysmal atrial fibrillation): Plan: Rate controlled on amiodarone Stable (12) Recurrent falls: Plan: PT/OT eval Fall precaution (13) Pulmonary hypertension: Plan: Holding Revatio in setting of hypotension. Will resume since BP improved (14) DVT prophylaxis: Plan: Heparin drip discontinued, started on Lovenox subcu Full Code Admission and Anticipated Discharge Date Admission Date: June 25, 2021 Subjective Patient was seen and examined for follow-up of respiratory failure, elevated liver enzyme Sitting in chair with no acute distress Saturated well on room air Patient said that he feels much better Denies any chest pain, palpitation, dizziness, and fever Review of Systems Review of Systems: All systems reviewed & are unremarkable except as noted in Subjective Physical Exam Physical Exam: General- No acute distress Head- atraumatic Eyes- PERRL, EOMI, ENT- oropharynx clear Neck- supple, no JVD Lungs- +coarse BS Heart- regular rhythm; no murmur Abdomen- normal bowel sounds, soft, nontender Extremities- no calf tenderness Neuro- alert, oriented x 3; PERRL, EOMI; no facial palsy; no dysarthria Skin- warm & dry Results & Data Results & Data ([facility]) Vital Signs (Past 12 Hours) Vital Signs Temp Pulse Resp BP BP Pulse Ox 06/27/21 19:35 36.7 C 64 18 127/53 L 97 06/27/21 15:29 36.4 C L 62 18 115/54 L 92 06/27/21 11:32 36.5 C 60 18 103/47 L 96 (1) Anemia Anemia type: unspecified type Qualified Code(s): D64.9 - Anemia, unspecified
[2021-06-28] MEDS: PIPERACILLIN/TAZOBACTAM 3.375 GM in DEXTROSE 5% 100 ML IV SCH ×2 (06:02→14:46)
[2021-06-28 07:14] LABS: Hematocrit (blood only) 29.3 % (42-52); Hemoglobin 9.2 g/dL (14.0-18.0); Mean Corpuscular Hemoglobin 26.4 pg (25-34); Mean Corpuscular Hgb Conc 31.4 g/dL (32-36); Mean Corpuscular Volume 84.2 fL (80-100); Mean Platelet Volume 8.8 fL (7.4-10.4); Platelet Count 315 K/uL (130-400); RDW Coefficient of Variation 16.4 % (11.5-14.5); RDW Standard Deviation 49.9 fL (36.4-46.3); Red Blood Count 3.48 M/uL (4.7-6.1); White Blood Count 9.32 K/uL (4.8-10.8)
[2021-06-28 07:40] LABS: Albumin Globulin Ratio 1.1 (0.9-2); Albumin Level 2.9 gm/dl (3.4-5.0); BUN Creatinine Ratio 23.5 (10-20); Bilirubin,Total 0.6 mg/dl (0.2-1.0); Calcium 8.3 mg/dl (8.5-10.1); Creatinine Clr Calc Pharmacy 46.8 ml/min; Est GFR (Non-African American) 68.1 ml/min; Globulin 2.7 gm/dl (2.5-4.0); Potassium 3.8 mmol/L (3.5-5.1); Total Protein 5.6 gm/dl (6.0-8.3)
[2021-06-28] MEDS: AMIODARONE 200 MG TAB PO SCH (08:25)
[2021-06-28] MEDS: amLODIPine BESYLATE 5 MG TAB PO SCH (08:25)
[2021-06-28] MEDS: FUROSEMIDE 40 MG/4 ML VIAL IV SCH (08:26)
[2021-06-28] MEDS: FINASTERIDE 5 MG TAB PO SCH (08:26)
[2021-06-28] MEDS: ENOXAPARIN INJ 40 MG/0.4 ML SYR SQ SCH (08:26)
[2021-06-28] MEDS: ASPIRIN 81 MG ECTAB PO SCH (08:26)
[2021-06-28] MEDS: levETIRAcetam 500 MG TAB PO SCH ×2 (08:26→19:58)
[2021-06-28] MEDS: METOPROLOL SUCC 25MG EXT REL TAB PO SCH ×2 (08:27→20:02)
[2021-06-28] MEDS: POTASSIUM CHLORIDE CRTAB 20 MEQ TABCR PO SCH (08:30)
[2021-06-28] MEDS: VANCOMYCIN HCL 1,250 MG in SODIUM CHLORIDE 0.9% 250 ML IV SCH (08:45)
[2021-06-28] MEDS: ACETAMINOPHEN 325 MG TAB PO PRN (14:45)
--- NOTE | 2021-06-28 15:14 | Cardiology Progress Note ---
Date of Service June 28, 2021 Assessment & Plan (1) CHF (congestive heart failure): (2) Acute hypotension: (3) Demand ischemia of myocardium: (4) Bacteremia: Plan: Troponin I: 2.48--> 16.13--> 9.59 ng/ml -History of minimal nonobstructive coronary heart disease on pre-TAVR cardiac catheterization. -The patient's troponin elevation is not likely due to an acute intracoronary thrombotic event, but likely due to demand ischemia in the setting of hypotension, hypoxia, LV strain Echocardiogram 06/26/2021, normal LVEF, no regional wall motion abnormalities, grade 2 diastolic dysfunction, moderate pulmonary hypertension. Discontinue UF heparin. Transition to DVT prophylaxis dose lovenox. Micro: High burden of Enterococcus faecalis sensitive to vancomycin Patient with likely multifactorial respiratory insufficiency, with history of pulmonary hypertension, late percutaneous ASD closure, diastolic heart failure. -Infectious disease input noted and appreciated, discontinue Zosyn, continue vancomycin. -Proceed with IRENA for evaluation of bacteremia on 06/29/21 if optimized from respirator status at that time. -Hold furosemide for tomorrow in preparation for IRENA. N.p.o. after midnight. -Elevated LFTs likely due to transient hypoperfusion, continue amiodarone, to prevent the patient from going back into atrial fibrillation. LFTs continue to trend toward improvement. Admission and Anticipated Discharge Date Admission Date: June 25, 2021 Subjective Mr Roly is seen in cardiology follow-up of shortness of breath and bacteremia. Oxygen saturation 95% on room air this morning. Remains afebrile. Physical Exam Physical Exam: Afebrile x last 24 hours. Constitutional: + ill appearing (Chronically ill in appearance); no acute distress Cardiovascular: Rate/Rhythm: regular rate Heart Sounds: no murmur Extremities: no edema Gastrointestinal (Abdomen): normal bowel sounds, soft, nontender, no hepatosplenomegaly Neurologic: PERRL, EOMI, accommodation nl, no face palsy, no dysarthria Results & Data ([facility]) Vital Signs (Past 12 Hours) Vital Signs Temp Pulse Pulse Resp BP Pulse Ox 06/28/21 11:52 36.6 C 64 18 125/51 L 95 06/28/21 08:00 60 06/28/21 07:38 36.6 C 60 18 125/57 L 98 06/28/21 03:56 36.5 C 60 18 130/60 92 (1) CHF (congestive heart failure) Heart failure chronicity: acute on chronic Heart failure type: unspecified Qualified Code(s): I50.9 - Heart failure, unspecified
[2021-06-28] MEDS: GABAPENTIN 400 MG CAP PO SCH (19:57)
--- NOTE | 2021-06-28 19:57 | Anesthesiology Consultation ---
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 History Surgery Operation Date: 06/29/21 07:15 Proposed Procedures p Transesophageal Echo w/Anesthesia - Dylan Prado DO Height/Weight Height: 5 ft 4 in Weight: 66.3 kg Allergies Allergy/AdvReac Type Severity Reaction Status Date / Time bee venom protein (honey bee) Allergy Severe ANAPHYLAXIS-YELLOW Verified 06/25/21 13:52 JACKETS lorazepam AdvReac Mild oversedation Verified 06/25/21 13:52 from AWSS protocol Uncoded Nonscreenable Allergy Severe All Uncoded 06/25/21 13:52 Allergen IV's must be administered thru 0.2mic in-line filter Medications Home Medications Medication Instructions Recorded Confirmed Last Taken atorvastatin 20 mg tablet 20 mg PO HS 02/18/21 06/25/21 06/24/21 epinephrine 0.3 mg/0.3 mL 0.3 mg IM DIRECTED PRN 02/18/21 06/25/21 Unknown injection, auto-injector (EpiPen) ezetimibe 10 mg tablet 10 mg PO DAILY 02/18/21 06/25/21 06/24/21 furosemide 40 mg tablet 20 mg PO MoWeFr@0900 02/18/21 06/25/21 06/24/21 levetiracetam 500 mg tablet 500 mg PO BID 02/18/21 06/25/21 06/24/21 sildenafil (pulm.hypertension) 20 20 mg PO BID 02/18/21 06/25/21 06/24/21 mg tablet terazosin 10 mg capsule 10 mg PO HS 02/18/21 06/25/21 06/24/21 amiodarone 200 mg tablet 200 mg PO QAM #30 tab 03/03/21 06/25/21 06/24/21 aspirin 81 mg tablet,delayed 81 mg PO QAM #30 tab 03/03/21 06/25/21 06/24/21 release potassium chloride 20 mEq 20 meq PO QAM #30 tab 03/03/21 06/25/21 06/24/21 tablet,extended release(part/cryst) gabapentin 400 mg capsule 400 mg PO HS #0 cap 06/09/21 06/25/21 06/24/21 amlodipine 10 mg tablet 10 mg PO DAILY 06/25/21 06/25/21 Unknown finasteride 5 mg tablet 5 mg PO DAILY 06/25/21 06/25/21 06/24/21 metoprolol succinate 50 mg 75 mg PO BID 06/25/21 06/25/21 06/24/21 tablet,extended release 24 hr Active Medications Generic Name Dose Route Start Last Admin Trade Name Gonzálezq PRN Reason Stop Dose Admin Acetaminophen 650 mg 06/25/21 14:02 06/28/21 14:45 Acetaminophen 325 Mg Tab PO 07/25/21 14:01 650 mg Q4H PRN Administration Pain or Fever Amiodarone HCl 200 mg 06/26/21 12:00 06/28/21 08:25 Amiodarone 200 Mg Tab PO 07/26/21 11:59 200 mg QAM LARRY Administration Amlodipine Besylate 10 mg 06/26/21 09:00 06/28/21 08:25 Amlodipine Besylate 5 Mg Tab PO 07/26/21 08:59 10 mg DAILY LARRY Administration Aspirin 81 mg 06/26/21 09:00 06/28/21 08:26 Aspirin 81 Mg Ectab PO 07/26/21 08:59 81 mg QAM LARRY Administration Enoxaparin Sodium 40 mg 06/28/21 09:00 06/28/21 08:26 Enoxaparin Inj 40 Mg/0.4 Ml Syr SQ 07/28/21 08:59 40 mg QAM LARRY Administration Finasteride 5 mg 06/26/21 09:00 06/28/21 08:26 Finasteride 5 Mg Tab PO 07/26/21 08:59 5 mg DAILY LARRY Administration Furosemide 40 mg 06/26/21 09:00 06/28/21 08:26 Furosemide 40 Mg/4 Ml Vial IV 07/26/21 08:59 40 mg DAILY LARRY Administration Gabapentin 400 mg 06/25/21 21:00 06/28/21 19:57 Gabapentin 400 Mg Cap PO 07/25/21 20:59 400 mg HS LARRY Administration Vancomycin HCl 1,250 mg/ 275 mls @ 200 mls/hr 06/27/21 08:00 06/28/21 10:29 Sodium Chloride IV 07/10/21 07:59 Infused Q24H LARRY Infusion Levetiracetam 500 mg 06/25/21 21:00 06/28/21 19:58 Levetiracetam 500 Mg Tab PO 07/25/21 20:59 500 mg BID LARRY Administration Metoprolol Succinate 75 mg 06/25/21 21:00 06/28/21 20:02 Metoprolol Succ 25mg Ext Rel Tab PO 07/25/21 20:59 75 mg BID LARRY Administration Potassium Chloride 20 meq 06/26/21 09:00 06/28/21 08:30 Potassium Chloride Crtab 20 Meq Tabcr PO 07/26/21 08:59 20 meq QAM LARRY Administration Past Medical History Medical History Acute hyponatremia Anemia Atrial fibrillation, new onset Atrial septal defect, secundum CAD (coronary atherosclerotic disease) Carotid artery stenosis Chronic diastolic CHF (congestive heart failure), NYHA class 3 Complete heart block, post-surgical Elevated troponin Generalized muscle weakness Gout H/O alcohol dependence Hematuria Hypokalemia Lumbar radiculopathy Moderate aortic stenosis Orthostasis PAF (paroxysmal atrial fibrillation) new onset Feb 2021, not on AC due to hematuria and anemia, when that was resolved, again taken off AC due to recurrent falls. 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 King Status post lumbar surgery 2014 Social History Smoking Status: Former smoker tobacco type: cigarettes Hx Alcohol Use: No Alcohol type: beer alcohol intake frequency: 3 or more drinks per day Hx Substance Use: No substance use type: does not use Physical Exam Vital Signs Last Vital Signs Temp 98.2 F 06/28/21 15:16 Pulse 60 06/28/21 15:26 Resp 19 06/28/21 15:16 BP 123/63 06/28/21 15:16 Pulse Ox 93 06/28/21 15:16 Testing Laboratory Results 06/28/21 06:37 06/28/21 06:37 APTT 124.2 Seconds (21.0-31.0) H* 06/27/21 05:29 Urine Color Dark Yellow 06/25/21 10:54 Urine Appearance Clear (Clear) 06/25/21 10:54 Urine pH 5.0 (4.5-7.5) 06/25/21 10:54 Ur Specific [place] 1.016 (1.000-1.030) 06/25/21 10:54 Urine Protein 1+ (Negative) H 06/25/21 10:54 Urine Glucose (UA) Negative (Negative) 06/25/21 10:54 Urine Ketones Trace (Negative) H 06/25/21 10:54 Urine Nitrite Negative (Negative) 06/25/21 10:54 Ur Leukocyte Esterase 1+ (Negative) H 06/25/21 10:54 Urine WBC (Auto) 10-30 /hpf (0-5) H 06/25/21 10:54 Urine RBC (Auto) 0-4 /hpf (0-4) 06/25/21 10:54 U Hyaline Cast (Auto) 5-10 /lpf (0-5) H 06/25/21 10:54 U Epithel Cells (Auto) >30 /lpf (0-5) H 06/25/21 10:54 Urine Bacteria (Auto) Negative (Negative) 06/25/21 10:54 Blood Type A Negative 06/26/21 22:11 Antibody Screen NEGATIVE 06/26/21 22:11 06/25/21 10:54 Aerobic Blood Culture - Final Blood Enterococcus faecalis Anaerobic Blood Culture - Final Enterococcus faecalis 06/25/21 10:15 Aerobic Blood Culture - Final Blood Enterococcus faecalis Anaerobic Blood Culture - Final Enterococcus faecalis 06/27/21 10:11 Aerobic Blood Culture - Preliminary Blood No growth in Aerobic bottle after 24 hours. Anaerobic Blood Culture - Preliminary No growth in Anaerobic bottle after 24 hours. 06/27/21 09:59 Aerobic Blood Culture - Preliminary Blood No growth in Aerobic bottle after 24 hours. Anaerobic Blood Culture - Preliminary No growth in Anaerobic bottle after 24 hours. 06/25/21 10:54 Urine Culture - Final Urine,Straight Cath No growth - less than 1,000 colonies/mL. Laboratory Tests 06/25/21 10:05 SARS-CoV-2, RNA, NAAT NEGATIVE Electrocardiogram Date: 06/27/21 Atrial-sensed ventricular-paced rhythm with frequent AV dual-paced complexes, rate 62 bpm Abnormal ECG When compared with ECG of 26-JUN-2021 10:26, (unconfirmed) Vent. rate has decreased BY 3 BPM Confirmed by Johnathan Horan ([id number]) on 06/27/2021 10:44:33 PM Chest X-Ray Date: 06/25/21 FINDINGS: No pneumothorax. The cardiac silhouette is moderately enlarged. An aortic valve stent is noted. The left-sided pacemaker. Cervical spinal fusion hardware. Progressive interstitial/vascular thickening with a few patchy hazy airspace opacities. This likely represents worsening pulmonary edema. IMPRESSION: Cardiomegaly with progression of the moderate pulmonary edema. Echocardiogram Date: 06/26/21 There is mild concentric LVH No regional wall motion abnormalities noted EF 60-65% RV is normal in size and function Mild MR Mild TR Patient is status post TAVR with Mariano type prosthetic valve The gradients are normal for this prosthesis No significant prosthetic regurgitation is present Moderate pulmonary hypertension is present, the pulmonary artery systolic pressure is estimated to be 56 mm Hg Diastolic dysfunction, grade 2 Compared to the report of the most recent outpatient study dated 05/03/2021, the pulmonary artery systolic pressure is estimated to be 35-45mmHg at that time
--- NOTE | 2021-06-28 23:59 | Hospitalist Progress Note ---
Date of Service June 28, 2021 Assessment & Plan (1) Acute respiratory failure: (2) Chronic right heart failure: (3) Acute heart failure with preserved ejection fraction: Plan: Mostly due to to acute heart failure with pulmonary edema Cardiomegaly with progression of the moderate pulmonary edema. Patient was required BiPAP in the ER. Lasix 40 mg IV given in the ER Cardiology on board recommend to continue IV Lasix 40 mg daily Echo showed no regional wall motion abnormality with ejection fraction 60 to 65% Lasix on hold for tomorrow IRNEA Saturated well on RA Continue monitor intake and output Continue to monitor closely (4) Elevated troponin: Plan: Possible Type 2 GA due to demand ischemia Troponin peak to 16 now trending down to 9.59 EKG showed no acute ischemic changes Echo showed no wall motion abnormality Denies any chest pain Discontinue IV heparin drip as per cardio Cardiology on board Continue aspirin and metoprolol Continue monitor closely (5) Bacteremia: Plan: Blood culture grew gram-positive cocci in cluster Currently on IV Zosyn and IV vancomycin Repeat blood culture no growth Echo s did not mention any vegetation ID on board recommended to d/c IV Zosyn and continue IV Vanco Plan for IRENA tomorrow Final abx duration will depend on IRENA result NPO after midnigt Continue monitor closely (6) Elevated transaminase level: Plan: Likely related to poor hypotension/shock liver picture. Liver enzymes on admission with AST above 500 and ALT 427 Liver ultrasound negative Continue to hold atorvastatin, zetia. LFT continue trending down with AST from 375 to 200 -->158 and ALT from 360 to 321--> 283 Continue to avoid hepatotoxic agent Continue monitor LFT (7) Acute kidney failure, unspecified: Plan: Creatinine on admission 1.9 Creatinine 1.02 today Continue to avoid nephrotoxic agent Monitor BMP (8) CAD (coronary atherosclerotic disease): Plan: Denies any chest pain no evidence of ACS. Cont ASA, BB. Continue to hold statin due to elevate LFT (9) PVD (peripheral vascular disease): Plan: Cont medical therapy. H/o stents to bilateral lower extremities. (10) Anemia: Plan: h/o hematuria with cystoscopy with cystourethral dilation, clot evacuation and extensive fulguration by Dr. Turcios in Feb 2021. Hemoglobin stable at 9.2 Continue monitor CBC (11) PAF (paroxysmal atrial fibrillation): Plan: Rate controlled on amiodarone Stable (12) Recurrent falls: Plan: PT/OT eval Fall precaution (13) Pulmonary hypertension: Plan: Holding Revatio in setting of hypotension. Amlodipine resumed (14) DVT prophylaxis: Plan: on Lovenox subcu Full Code Admission and Anticipated Discharge Date Admission Date: June 25, 2021 Subjective Patient was seen and examined for follow-up of respiratory failure, elevated liver enzyme Lying in bed with no acute distress Saturated well on room air Patient said that he feels fine Denies any chest pain, palpitation, dizziness, and fever Review of Systems Review of Systems: All systems reviewed & are unremarkable except as noted in Subjective Physical Exam Physical Exam: General- No acute distress Head- atraumatic Eyes- PERRL, EOMI, ENT- oropharynx clear Neck- supple, no JVD Lungs- +coarse BS Heart- regular rhythm; no murmur Abdomen- normal bowel sounds, soft, nontender Extremities- no calf tenderness Neuro- alert, oriented x 3; PERRL, EOMI; no facial palsy; no dysarthria Skin- warm & dry Results & Data Results & Data ([facility]) Vital Signs (Past 12 Hours) Vital Signs Temp Pulse Pulse Resp BP Pulse Ox 06/28/21 23:26 36.8 C 60 15 126/53 L 91 06/28/21 22:54 61 06/28/21 20:00 36.4 C L 60 15 117/61 93 06/28/21 15:26 60 06/28/21 15:16 36.8 C 61 19 123/63 93 (1) Anemia Anemia type: unspecified type Qualified Code(s): D64.9 - Anemia, unspecified
[2021-06-29] MEDS ORDERED: BENZOCAINE/TETRACAIN/BUTAM 50 APPLN/5 GM CAN EXT ONE (07:03)
--- NOTE | 2021-06-29 07:08 | History & Physical Bridge Note ---
Date of Service June 29, 2021 History & Physical Bridge Note I have examined the patient, reviewed the History & Physical and in the interval since the performance of the History & Physical I have noted the following changes of clinical significance: no changes noted. Proceed with IRENA.
[2021-06-29] MEDS ORDERED: VANCOMYCIN TROUGH ONE (07:30)
--- NOTE | 2021-06-29 08:09 | Post Operative Brief Note ---
Cardiology Brief Post Op Date of Surgery June 29, 2021 Pre & Post Diagnosis Preprocedure diagnosis: bacteremia Postprocedure diagnosis: no vegetation Operation Date: 06/29/21 07:15 Procedure IRENA: No vegetation. Received propofol 250 mg IV, lidocaine 40 mg IV, Normal saline 300 ml. Home Weatherizing Worker Dylan Prado DO Tag Press Operator Danitza Trivedi, [place] Estimated Blood Loss 0 Findings Consistent with Post-Op Diagnosis none Anesthesia Type MAC Complications none
--- NOTE | 2021-06-29 08:14 | Anesthesiology Progress Note ---
Date of Service June 29, 2021 Anesthesia Post Procedure Vital Signs Vital Signs: Temp Pulse Pulse Pulse Resp BP BP 06/29/21 07:56 60 16 116/47 L 06/29/21 03:30 36.5 C 57 L 15 137/66 06/28/21 23:26 36.8 C 60 15 126/53 L 06/28/21 22:54 61 06/28/21 20:00 36.4 C L 60 15 117/61 06/28/21 15:26 60 06/28/21 15:16 36.8 C 61 19 123/63 06/28/21 11:52 36.6 C 64 18 125/51 L Pulse Ox 06/29/21 07:56 99 06/29/21 03:30 97 06/28/21 23:26 91 06/28/21 22:54 06/28/21 20:00 93 06/28/21 15:26 06/28/21 15:16 93 06/28/21 11:52 95 Transfer of Care Handoff Completed per policy Notes Mental Status: alert / awake / arousable Patient Amnestic to Procedure: Yes Nausea / Vomiting: adequately controlled Pain: adequately controlled Airway Patency, RR, SpO2: stable & adequate BP & HR: stable & adequate Hydration State: stable & adequate Anesthetic Complications: no major complications apparent and Pt Satisfied with anesthetic care Notes: The patient is awake and comfortable. His vital signs are stable.
[2021-06-29] MEDS ORDERED: PROPOFOL IV EMULSION 10 MG/ML 20 ML VIAL IV ONE (08:20)
[2021-06-29] MEDS ORDERED: LIDOCAINE 2% MPF LOCAL 5 ML VIAL INFIL ONE (08:21)
[2021-06-29 09:34] LABS: Basophils # (auto) 0.01 K/uL (0-0.2); Basophils % (auto) 0.1 %; Eosinophils % (auto) 3.3 %; Hematocrit (blood only) 30.1 % (42-52); Hemoglobin 9.5 g/dL (14.0-18.0); Immature Granulocytes # (auto) 0.06 K/uL (0.00-0.02); Immature Granulocytes % (auto) 0.7 %; Lymphocytes # (auto) 1.17 K/uL (1.2-3.4); Lymphocytes % (auto) 12.8 %; Mean Corpuscular Hemoglobin 26.6 pg (25-34); Mean Corpuscular Hgb Conc 31.6 g/dL (32-36); Mean Corpuscular Volume 84.3 fL (80-100); Mean Platelet Volume 8.6 fL (7.4-10.4); Monocytes # (auto) 0.88 K/uL (0.11-0.59); Monocytes % (auto) 9.7 %; Neutrophils # (auto) 6.69 K/uL (1.4-6.5); Neutrophils % (auto) 73.4 %; Platelet Count 314 K/uL (130-400); RDW Coefficient of Variation 16.5 % (11.5-14.5); RDW Standard Deviation 50.6 fL (36.4-46.3); Red Blood Count 3.57 M/uL (4.7-6.1); White Blood Count 9.11 K/uL (4.8-10.8)
[2021-06-29 09:54] LABS: Albumin Level 2.9 gm/dl (3.4-5.0); BUN Creatinine Ratio 20.2 (10-20); Bilirubin,Total 0.5 mg/dl (0.2-1.0); Calcium 8.4 mg/dl (8.5-10.1); Creatinine Clr Calc Pharmacy 48.2 ml/min; Est GFR (African American) 81.9 ml/min; Est GFR (Non-African American) 70.6 ml/min; Globulin 2.8 gm/dl (2.5-4.0); Potassium 3.9 mmol/L (3.5-5.1); Total Protein 5.7 gm/dl (6.0-8.3)
[2021-06-29] MEDS: VANCOMYCIN HCL 1,250 MG in SODIUM CHLORIDE 0.9% 250 ML IV SCH (10:01)
[2021-06-29] MEDS: levETIRAcetam 500 MG TAB PO SCH ×2 (10:02→21:22)
[2021-06-29] MEDS: ASPIRIN 81 MG ECTAB PO SCH (10:02)
[2021-06-29] MEDS: FINASTERIDE 5 MG TAB PO SCH (10:02)
[2021-06-29] MEDS: amLODIPine BESYLATE 5 MG TAB PO SCH (10:02)
[2021-06-29] MEDS: METOPROLOL SUCC 25MG EXT REL TAB PO SCH ×2 (10:02→21:22)
[2021-06-29] MEDS: AMIODARONE 200 MG TAB PO SCH (10:02)
[2021-06-29] MEDS: POTASSIUM CHLORIDE CRTAB 20 MEQ TABCR PO SCH (10:03)
[2021-06-29] MEDS: ENOXAPARIN INJ 40 MG/0.4 ML SYR SQ SCH (10:03)
--- NOTE | 2021-06-29 11:23 | Hospitalist Progress Note ---
Date of Service June 29, 2021 Assessment & Plan (1) Acute respiratory failure: (2) Chronic right heart failure: (3) Acute heart failure with preserved ejection fraction: Plan: Mostly due to to acute heart failure with pulmonary edema Cardiomegaly with progression of the moderate pulmonary edema. Patient was required BiPAP in the ER. Cardiology on board. Recommendations noted Has been on iv lasix 40mg daily. Held today for IRENA Resume lasix tomorrow Echo showed no regional wall motion abnormality with ejection fraction 60 to 65% Continue to monitor intake and output Continue to monitor closely (4) Elevated troponin: Plan: Possible Type 2 NH due to demand ischemia Troponin peak to 16 now trending down to 9.59 EKG showed no acute ischemic changes Echo showed no wall motion abnormality Cardiology on board Continue aspirin Continue monitor closely (5) Bacteremia: Plan: Possible Sepsis Was found down and incontinent Though it seems patient may not have met SIRS criteria on admission, likely has sepsis based on altered mental status and enterococcus bacteremia Blood culture grew Enterococcus on admission on 06/25/21 Urine culture from 06/07/21 also grew enterococcus.Hence, likely urinary source Was on zosyn and vancomycin TTE did not mention any vegetation ID on board recommended to d/c IV Zosyn and continue IV Vanco IRENA reviewed and no vegetation observed. Hence will plan 2 weeks of IV vancomycin from date of negative cultures (06/27/21) (6) Elevated transaminase level: Plan: Likely related to hypotension/shock liver picture. Liver enzymes on admission with AST above 500 and ALT 427 Liver ultrasound negative Continue to hold atorvastatin, zetia. LFT continue trending down with AST from 375 to 200 -->120 and ALT from 360 to 321--> 236 Continue to avoid hepatotoxic agent Continue monitor LFT (7) Acute kidney failure, unspecified: Plan: Creatinine on admission 1.9 Creatinine 0.99 today Continue to avoid nephrotoxic agent Monitor BMP (8) CAD (coronary atherosclerotic disease): Plan: Denies any chest pain no evidence of ACS. Cont ASA, BB. Continue to hold statin due to elevate LFT (9) PVD (peripheral vascular disease): Plan: Cont medical therapy. H/o stents to bilateral lower extremities. (10) Anemia: Plan: h/o hematuria with cystoscopy with cystourethral dilation, clot evacuation and extensive fulguration by Dr. Turcios in Feb 2021. Hemoglobin stable at 9.5 Continue to monitor CBC (11) PAF (paroxysmal atrial fibrillation): Plan: Rate controlled on amiodarone Stable (12) Recurrent falls: Plan: PT/OT eval - rehab recommended Fall precaution (13) Pulmonary hypertension: Plan: Holding Revatio in setting of hypotension. Will follow up with Card tomorrow about resuming since BP is improved (14) DVT prophylaxis: Plan: on Lovenox subcu Full Code Remove rand Admission and Anticipated Discharge Date Admission Date: June 25, 2021 Subjective Patient seen and examined. Denies any chest pain, cough, shortness of breath Denies any nausea, vomiting, abdominal pain, diarrhea Denies any fever, chills Denies any complaints Physical Exam Constitutional: + well hydrated; no acute distress Eyes: PERRL, conjunctivae normal, anicteric sclerae ENMT: external ear and nose normal, oropharynx normal Respiratory: normal respiratory effort, lungs clear to auscultation Cardiovascular: Rate/Rhythm: regular rate and regular rhythm S1 S2 Gastrointestinal (Abdomen): normal bowel sounds, soft, nontender, no hepatosplenomegaly Musculoskeletal: No -pedal edema Neurologic: PERRL, EOMI, accommodation nl, no face palsy, no dysarthria Psychiatric: A+Ox3, euthymic affect Results & Data Results & Data ([facility]) Vital Signs (Past 12 Hours) Vital Signs Temp Pulse Pulse Resp BP BP Pulse Ox 06/29/21 09:05 36.7 C 60 18 121/74 94 06/29/21 08:40 36.5 C 61 18 129/56 L 93 06/29/21 08:11 60 16 118/49 L 97 06/29/21 07:56 60 16 116/47 L 99 06/29/21 03:30 36.5 C 57 L 15 137/66 97 06/28/21 23:26 36.8 C 60 15 126/53 L 91 Laboratory Results Abnormal lab results 06/29/21 06/29/21 Range/Units 09:16 09:16 RBC 3.57 L (4.7-6.1) M/uL Hgb 9.5 L (14.0-18.0) g/dL Hct 30.1 L (42-52) % MCHC 31.6 L (32-36) g/dL RDW Std Deviation 50.6 H (36.4-46.3) fL RDW Coeff of Ruth 16.5 H (11.5-14.5) % Neut # (Auto) 6.69 H (1.4-6.5) K/uL Lymph # (Auto) 1.17 L (1.2-3.4) K/uL [place] # (Auto) 0.88 H (0.11-0.59) K/uL Immature Gran # (Auto) 0.06 H (0.00-0.02) K/uL BUN/Creatinine Ratio 20.2 H (10-20) Calcium 8.4 L (8.5-10.1) mg/dl AST 120 H (13-39) U/L ALT 236 H (7-52) U/L Total Protein 5.7 L (6.0-8.3) gm/dl Albumin 2.9 L (3.4-5.0) gm/dl (1) Anemia Anemia type: unspecified type Qualified Code(s): D64.9 - Anemia, unspecified
--- NOTE | 2021-06-29 12:52 | Pharmacy Report ---
Pharmacy Vanc AUC Short Note - Date of Service June 29, 2021 - Assessment & Plan Assessment 80 year old M receiving Vancomycin for treatment of Bacteremia. Blood cultures grew Enterococcus faecalis. Plan Vancomycin * Trough level is10.3 mcg/mL on 06/29 * Change to 1500mg mg IV every 24 hours. This dose is predicted to achieve target AUC/ALTAGRACIA of 400-600 mg/L.hr and may be associated with a 10% risk of nephrotoxicity Pharmacy will continue to follow and will adjust dose/frequency as necessary. Thank you.
[2021-06-29] MEDS: GABAPENTIN 400 MG CAP PO SCH (21:22)
[2021-06-30 07:01] LABS: Hematocrit (blood only) 30.3 % (42-52); Hemoglobin 9.5 g/dL (14.0-18.0); Mean Corpuscular Hemoglobin 26.5 pg (25-34); Mean Corpuscular Hgb Conc 31.4 g/dL (32-36); Mean Corpuscular Volume 84.4 fL (80-100); Mean Platelet Volume 8.5 fL (7.4-10.4); Platelet Count 305 K/uL (130-400); RDW Coefficient of Variation 16.7 % (11.5-14.5); Red Blood Count 3.59 M/uL (4.7-6.1); White Blood Count 9.98 K/uL (4.8-10.8)
[2021-06-30] MEDS: FINASTERIDE 5 MG TAB PO SCH (07:49)
[2021-06-30] MEDS: levETIRAcetam 500 MG TAB PO SCH (07:49)
[2021-06-30] MEDS: METOPROLOL SUCC 25MG EXT REL TAB PO SCH (07:49)
[2021-06-30] MEDS: AMIODARONE 200 MG TAB PO SCH (07:49)
[2021-06-30] MEDS: ASPIRIN 81 MG ECTAB PO SCH (07:49)
[2021-06-30] MEDS: amLODIPine BESYLATE 5 MG TAB PO SCH (07:49)
[2021-06-30] MEDS: ENOXAPARIN INJ 40 MG/0.4 ML SYR SQ SCH (07:50)
[2021-06-30] MEDS: POTASSIUM CHLORIDE CRTAB 20 MEQ TABCR PO SCH (07:52)
[2021-06-30 08:00] LABS: Albumin Globulin Ratio 1.2 (0.9-2); BUN Creatinine Ratio 18.4 (10-20); Bilirubin,Total 0.5 mg/dl (0.2-1.0); Calcium 8.6 mg/dl (8.5-10.1); Creatinine Clr Calc Pharmacy 53.9 ml/min; Est GFR (African American) 92.5 ml/min; Est GFR (Non-African American) 79.8 ml/min; Globulin 2.6 gm/dl (2.5-4.0); Phosphorus 3.2 mg/dl (2.5-4.9); Potassium 4.1 mmol/L (3.5-5.1); Total Protein 5.6 gm/dl (6.0-8.3)
[2021-06-30] MEDS ORDERED: VANCOMYCIN HCL 1,500 MG in SODIUM CHLORIDE 0.9% 500 ML IV SCH (08:00)
[2021-06-30] MEDS ORDERED: FUROSEMIDE 40 MG/4 ML VIAL IV SCH (09:00)
[2021-06-30] MEDS ORDERED: SILDENAFIL CITRATE 20 MG TABLET PO SCH (10:00)
--- NOTE | 2021-06-30 11:55 | Hospitalist Progress Note ---
Date of Service June 30, 2021 Assessment & Plan (1) Acute respiratory failure: (2) Chronic right heart failure: (3) Acute heart failure with preserved ejection fraction: Plan: Mostly due to to acute heart failure with pulmonary edema XR Chest - Cardiomegaly with progression of the moderate pulmonary edema. Patient required BiPAP in the ER. Cardiology on board. Recommendations noted Echo showed no regional wall motion abnormality with ejection fraction 60 to 65% Continue to monitor intake and output Continue to monitor closely Discussed with Medical Record Coder. Continue iv lasix while inpatient. Transition to home lasix dose on discharge (4) Elevated troponin: Plan: Possible Type 2 NM due to demand ischemia Troponin peak to 16 now trending down to 9.59 EKG showed no acute ischemic changes Echo showed no wall motion abnormality Cardiology on board Continue aspirin Continue monitor closely (5) Bacteremia: Plan: Possible Sepsis Was found down and incontinent Though it seems patient may not have met SIRS criteria on admission, likely has sepsis based on altered mental status and enterococcus bacteremia Blood culture grew Enterococcus on admission on 06/25/21 Urine culture from 06/07/21 also grew enterococcus.Hence, likely urinary source Was on zosyn and vancomycin TTE did not mention any vegetation ID on board recommended to d/c IV Zosyn and continue IV Vanco IRENA reviewed and no vegetation observed. Hence will plan 2 weeks of IV vancomycin from date of negative cultures (06/27/21) PICC line ordered (6) Elevated transaminase level: Plan: Likely related to hypotension/shock liver picture. Liver enzymes on admission with AST above 500 and ALT 427 Liver ultrasound negative Continue to hold atorvastatin, zetia. May continue to hold on discharge till LFT normalizes LFT continue trending down with AST from 375 to 200 -->83 and ALT from 360 to 321--> 2192 Continue to avoid hepatotoxic agent Continue monitor LFT (7) Acute kidney failure, unspecified: Plan: Creatinine on admission 1.9 Creatinine 0.87 today Continue to avoid nephrotoxic agent Monitor BMP (8) CAD (coronary atherosclerotic disease): Plan: Denies any chest pain no evidence of ACS. Cont ASA, BB. Continue to hold statin due to elevate LFT (9) PVD (peripheral vascular disease): Plan: Cont medical therapy. H/o stents to bilateral lower extremities. (10) Anemia: Plan: h/o hematuria with cystoscopy with cystourethral dilation, clot evacuation and extensive fulguration by Dr. Turcios in Feb 2021. Hemoglobin stable at 9.5 Continue to monitor CBC (11) PAF (paroxysmal atrial fibrillation): Plan: Rate controlled on amiodarone Stable (12) Recurrent falls: Plan: PT/OT eval - rehab recommended Fall precaution (13) Pulmonary hypertension: Plan: Revation resumed (14) DVT prophylaxis: Plan: on Lovenox subcu Full Code Awaiting bed availability at rehab for DC Admission and Anticipated Discharge Date Admission Date: June 25, 2021 Subjective Patient seen and examined. Denies any complaints Denies any chest pain, cough, shortness of breath Denies any nausea, vomiting, abdominal pain, diarrhea Denies any fever, chills Physical Exam Constitutional: + well hydrated; no acute distress Eyes: PERRL, conjunctivae normal, anicteric sclerae ENMT: external ear and nose normal, oropharynx normal Respiratory: normal respiratory effort, lungs clear to auscultation Cardiovascular: Rate/Rhythm: regular rate and regular rhythm S1 S2 Gastrointestinal (Abdomen): normal bowel sounds, soft, nontender, no hepatosplenomegaly Musculoskeletal: No pedal edema Neurologic: PERRL, EOMI, accommodation nl, no face palsy, no dysarthria Psychiatric: A+Ox3, euthymic affect Results & Data Results & Data ([facility]) Vital Signs (Past 12 Hours) Vital Signs Temp Pulse Pulse Resp BP BP Pulse Ox 06/30/21 11:02 36.5 C 50 L 18 126/51 L 94 06/30/21 06:57 36.5 C 60 19 140/56 L 92 06/30/21 03:00 36.6 C 52 L 15 137/55 L 92 06/30/21 00:04 61 Laboratory Results Abnormal lab results 06/30/21 06/30/21 Range/Units 06:09 06:09 RBC 3.59 L (4.7-6.1) M/uL Hgb 9.5 L (14.0-18.0) g/dL Hct 30.3 L (42-52) % MCHC 31.4 L (32-36) g/dL RDW Std Deviation 51.0 H (36.4-46.3) fL RDW Coeff of Ruth 16.7 H (11.5-14.5) % AST 83 H (13-39) U/L ALT 192 H (7-52) U/L Total Protein 5.6 L (6.0-8.3) gm/dl Albumin 3.0 L (3.4-5.0) gm/dl (1) Anemia Anemia type: unspecified type Qualified Code(s): D64.9 - Anemia, unspecified
--- NOTE | 2021-06-30 12:31 | Cardiology Progress Note ---
Date of Service June 30, 2021 Assessment & Plan (1) CHF (congestive heart failure): (2) Acute hypotension: (3) Demand ischemia of myocardium: (4) Bacteremia: Plan: Micro: High burden of Enterococcus faecalis sensitive to vancomycin Transesophageal echocardiogram performed 06/29/2021 revealed no evidence of vegetation on the aortic valve structures including the transcatheter aortic valve prosthesis. Pacemaker wires without vegetation, atrial septal closure device without vegetation. Per previous infectious disease recommendations, proceed with 2-week course of IV vancomycin. LFTs continue to trend down, continue amiodarone for rhythm control strategy, as patient has not tolerated atrial fibrillation from a hemodynamic/volume status standpoint in the past. Currently telemetry reveals sinus rhythm with appropriate AV sequential pacing. Sildenafil reinitiated, since blood pressure has been stable for a few days. Continue furosemide 40 mg IV daily while acutely hospitalized, and can be transitioned to his prior to hospital oral furosemide dose of 20 mg within the next 24 to 72 hours depending upon rehab disposition. Systemic anticoagulation recently discontinued as an outpatient as he has been in sinus rhythm, and has verbalized anemia. Admission and Anticipated Discharge Date Admission Date: June 25, 2021 Subjective Patient seen in cardiology follow-up. Comfortable, denies complaints. Pulse oximetry 94% on nasal cannula, 4 L. Denies subjective fevers or chills. Afebrile on vitals. Review of Systems Review of Systems: All systems reviewed & are unremarkable except as noted in HPI & below Physical Exam Constitutional: no acute distress Cardiovascular: Rate/Rhythm: regular rate Heart Sounds: no murmur Extremities: no edema Gastrointestinal (Abdomen): normal bowel sounds, soft, nontender, no hepatosplenomegaly Neurologic: PERRL, EOMI, accommodation nl, no face palsy, no dysarthria Results & Data ([facility]) Vital Signs (Past 12 Hours) Vital Signs Temp Pulse Resp BP BP Pulse Ox 06/30/21 11:02 36.5 C 50 L 18 126/51 L 94 06/30/21 06:57 36.5 C 60 19 140/56 L 92 06/30/21 03:00 36.6 C 52 L 15 137/55 L 92 Laboratory Results Cardiac Enzymes 06/30/21 Range/Units 06:09 AST 83 H (13-39) U/L CBC 06/30/21 Range/Units 06:09 WBC 9.98 (4.8-10.8) K/uL RBC 3.59 L (4.7-6.1) M/uL Hgb 9.5 L (14.0-18.0) g/dL Hct 30.3 L (42-52) % Plt Count 305 (130-400) K/uL Comprehensive Metabolic Panel 06/30/21 Range/Units 06:09 Sodium 138 (136-145) mmol/L Potassium 4.1 (3.5-5.1) mmol/L Chloride 105 (98-107) mmol/L Carbon Dioxide 28 (21-32) mmol/L BUN 16 (6-23) mg/dl Creatinine 0.87 (0.6-1.4) mg/dl Glucose 99 (70-99(Fasting)) mg/dl Calcium 8.6 (8.5-10.1) mg/dl AST 83 H (13-39) U/L ALT 192 H (7-52) U/L Alkaline Phosphatase 66 (34-104) U/L Total Protein 5.6 L (6.0-8.3) gm/dl Albumin 3.0 L (3.4-5.0) gm/dl Intake and Output 06/29/21 06/30/21 06/30/21 22:59 06:59 14:59 Intake Total 100 / 815 200 / 815 530 / 530 Output Total 150 / 1000 400 / 1000 Balance -50 / -185 -200 / -185 530 / 530 Intake: IV 530 / 530 Vancomycin HCl 1,500 mg In 530 / 530 Sodium Chloride 0.9% 500 ml @ 200 mls/hr IV Q24H [facility] Rx#: [id number] Oral 100 / 540 200 / 540 Output: Urine 150 / 1000 400 / 1000 Other: Weight 65.9 kg 66.2 kg Weight Measurement Method Standing Scale (1) CHF (congestive heart failure) Heart failure chronicity: acute on chronic Heart failure type: unspecified Qualified Code(s): I50.9 - Heart failure, unspecified
--- NOTE | 2021-06-30 16:14 | Discharge Summary ---
Date of Service June 30, 2021 Admission HPI Per Admitting Provider 80 yo M with multiple medical problems presents being found sonw, hypoxic at home by his son, Jayson. He was found in his bed and had been incontinent of urine, however, to Jayson it appeared as though he was trying to use a bedside urinal and wsa too weak to complete the task. The patient does have a h/o seizures and is taking Keppra 500mg BID. He was found hypoxic with an oxygen saturation in the 50s, per EMS he was 94% on arrival. He was initially confused on arrival to the ER, but was improved after initial treatment. He reports falling into the coffee table backwards and hitting his head and backside. As he was found in bed, he somehow made it back to the bed, however, he doesn't remember the details and then his oxygen supplementation (typically on 2LPM continuously) was off his face possibly overnight. On arrival to the ER, his blood pressure was 108/50. He was placed on 8 LPM of oxygen and a CXR revealed evidence of pulmonary edema. Physical exam was consistent with fluid overload, and he was placed on BIPAP with improvement in his oxygen saturation. He was given Lasix 40mg IV and a rand catheter was placed. He denies any issues with SOB over the past couple of days. He denies any weight gain and states that he weighs himself daily with recent weight of 152 lbs. He denies any coughing, fevers or chills, however, temp was 37.8 this morning. He denies any UTI symptoms including no dysuria, flank pain or urinary urgency or frequency recently. He denies abdominal pain or fullness, and denies any changes in his bowel movements including no blood per rectum. Trop was osman vated to 2.48 and his EKG reveals a paced rhythm with no evidence of acute ischemia. LFTs are elevated with AST 528, ALT 427 and he has an VENKATA with a BUN/creat of 28/1.9, baseline creatinine is 1.0. Shortly after Lasix was given his BP fell to 90/47. He was placed in T frances position and given a small amount of NSS with return of his pressure to 111 systolic. His mental status remained clear and whe was answering questions appropriately during this time. Pressor therapy with norepinephrine was considered, however, not needed wtih improvement with IVF. Son was at bedside and the patient is a confirmed full code. Admission Exam Per Admitting Provider CONSTITUTIONAL: WNWD, vitals as above, generally ill-appearing. EYES: normal conjunctivae, no scleral icterus, ENT: external ear and nose normal, BIPAP mask in place. NECK: trachea midline, RESPIRATORY: crackles and diminished breath sounds at the bases bilaterally, no rales or wheezes, normal respiratory effort CARDIOVASCULAR: regular rate and rhythm, S1 and 2 heard without murmurs, gallops or rubs, no JVD, no peripheral edema CHEST: inspection of chest was normal GASTROINTESTINAL: soft, nontender, ND, no guarding MUSCULOSKELETAL: strength 5/5 throughout, head is normocephalic and atraumatic, SKIN: warm and dry NEUROLOGIC: CN 2-12 grossly intact, no sensory deficit, normal cognition, normal speech, no tremor PSYCHIATRIC: alert cooperative and oriented to person, place and time. Principal Diagnosis Acute respiratory failure Acute on chronic diastolic heart failure Sepsis with enterococcus bacteremia Transaminitis Acute kidney injury Discharge Exam Constitutional + well hydrated; no acute distress Eyes PERRL, conjunctivae normal, anicteric sclerae ENMT external ear and nose normal, oropharynx normal Respiratory normal respiratory effort, lungs clear to auscultation Cardiovascular Rate/Rhythm: regular rate and regular rhythm S1 S2 Gastrointestinal (Abdomen) normal bowel sounds, soft, nontender, no hepatosplenomegaly Musculoskeletal No pedal edema Neurologic PERRL, EOMI, accommodation nl, no face palsy, no dysarthria Psychiatric A+Ox3, euthymic affect Discharge Data Allergies Allergy/AdvReac Type Severity Reaction Status Date / Time bee venom protein (honey bee) Allergy Severe ANAPHYLAXIS-YELLOW Verified 06/25/21 13:52 JACKETS lorazepam AdvReac Mild oversedation Verified 06/25/21 13:52 from AWSS protocol Uncoded Nonscreenable Allergy Severe All Uncoded 06/25/21 13:52 Allergen IV's must be administered thru 0.2mic in-line filter Consultations 06/25/21 12:18 ED Decision to Admit Stat 06/25/21 14:47 Consult Cardiology Routine 06/26/21 08:00 Consult Infectious Diseases Routine 06/27/21 12:51 Consult Anesthesiology Routine Procedures Performed Operation Date: 06/29/21 07:15 Actual Procedures s Echo Color Flow - Dylan Prado DO s Echo Doppler Complete - Dylan Prado DO p Echo Transesophageal - Dylan Prado DO Ordered Studies 06/25/21 10:20 CT head/brain wo con Stat The paranasal sinuses are clear. Trace bilateral mastoid effusions, unchanged. The calvarium and skull base are intact. There is no mass, hematoma, midline shift, acute infarct. White matter hypodensity is nonspecific but suggestive of microvascular ischemic change. The ventricles and sulci demonstrate mild age- related involutional changes. 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 Impression: No significant change compared to the prior study. No acute intracranial abnormality. 06/25/21 11:38 US liver Stat Pancreas: The pancreatic tail is obscured by overlying bowel gas. The remaining portions of the pancreas are within normal limits. Liver: Unremarkable. Gallbladder: No gallbladder wall thickening. No gallstones. CBD: 5 mm. Right kidney: There are 2 cysts with the largest measuring 4.4 cm. Miscellaneous: Small right pleural effusion. IMPRESSION: 1. Normal gallbladder. No gallstones. 2. Right renal cyst. 3. Small right pleural effusion. 06/26/21 21:51 CT forearm LT wo con Urgent CT humerus LT wo con Urgent ones: There is no evidence for an acute fracture or dislocation. There are no lytic or blastic lesions. Joints: The joint spaces are maintained. The bones are in anatomic alignment. Soft tissues: There is homogeneous signal demonstrated within the muscles of the upper arm on these limited noncontrast images. However, there is fluid seen in the deep fascial plane of the mid to lower upper arm. Additionally, subcutaneous edema representing cellulitis is also present surrounding the mid to lower left upper arm. IMPRESSION: No acute osseous pathology. There is fluid in the deep fascial plane and diffuse cellulitis involving the mid to lower upper arm. Hospital Course (1) Acute respiratory failure: (2) Chronic right heart failure: (3) Acute heart failure with preserved ejection fraction: Mostly due to to acute heart failure with pulmonary edema XR chest - Cardiomegaly with progression of the moderate pulmonary edema. Patient required BiPAP in the ER. Echo showed no regional wall motion abnormality with ejection fraction 60 to 65% Treated with IV lasix while inpatient Continue home lasix on discharge Continue low salt diet and fluid restriction (4) Elevated troponin: Possible Type 2 HI due to demand ischemia Troponin peak to 16 now trending down to 9.59 EKG showed no acute ischemic changes Echo showed no wall motion abnormality Continue aspirin (5) Bacteremia: Possible Sepsis Was found down and incontinent Though it seems patient may not have met SIRS criteria on admission, likely has sepsis based on altered mental status and enterococcus bacteremia Blood culture grew Enterococcus on admission on 06/25/21 Urine culture from 06/07/21 also grew enterococcus. Hence, likely urinary source TTE did not mention any vegetation IRENA reviewed and no vegetation observed. Hence discharge on 2 weeks of IV vancomycin from date of negative cultures (06/27/21) per ID recommendations End date of antibiotics will be 07/11/21 Monitor vanc level at rehab facility with goal of 15-20 and adjust dose if needed (6) Elevated transaminase level: Likely related to hypotension/shock liver picture. Liver enzymes on admission with AST above 500 and ALT 427 Liver ultrasound negative Continue to hold atorvastatin, zetia. May resume once LFTs are normalized on outpatient LFT LFT continue trending down with AST from 375 to 200 -->83 and ALT from 360 to 321--> 192 Continue to avoid hepatotoxic agent (7) Acute kidney failure, unspecified: Creatinine on admission 1.9 Creatinine 0.87 today Continue to avoid nephrotoxic agent Monitor BMP (8) CAD (coronary atherosclerotic disease): Denies any chest pain no evidence of ACS. Cont ASA, BB. Continue to hold statin due to elevate LFT (9) PVD (peripheral vascular disease): Cont medical therapy. H/o stents to bilateral lower extremities. (10) Anemia: h/o hematuria with cystoscopy with cystourethral dilation, clot evacuation and extensive fulguration by Dr. Turcios in Feb 2021. Hemoglobin stable at 9.5 Continue to monitor CBC (11) PAF (paroxysmal atrial fibrillation): Rate controlled on amiodarone Stable (12) Recurrent falls: PT/OT eval - rehab recommended Fall precaution (13) Pulmonary hypertension: Revatio was initially held due to hypotension Has been resumed Total Time Total Time Spent Total Time Spent (In Minutes): 60 Total Time Includes: Examination of the Patient, Discharge Planning, Medication Reconciliation, Communication With Other Providers and Other (Called son and updated him) Discharge Plan Discharge Items Patient Disposition: Transfer Intermediate Fac Reason For Visit: ACUTE RESP FAILURE Discharge Diagnosis: Acute respiratory failure Acute on chronic diastolic heart failure Sepsis with enterococcus bacteremia Transaminitis Acute kidney injury Activity: As commented below Activity Comment: Per Physical therapist recommendations Non-emergency contact: Primary Care Provider and Animal Humane Agent Supervisor Call non-emergency contact if: you have any medication questions and your symptoms worsen Follow-up/Referrals: Henry Campbell MD [Primary Care Provider] - Diet: Heart Healthy and Low Sodium (2gm) Fluids: 2000ml (8 cups) Addtl Attending Provider Instructions: Mr Dunham You were brought to the hospital after you were found down. You were brought to the hospital and noted to have low oxygen levels and noted to be fluid overloaded. Labwork revealed infection with enterococcus in your blood. You had transesophageal echocardiogram which did not show cardiac vegetation (infection in your heart). You received treatment for these and your symptoms resolved. You are being discharged on iv vancomycin which you will continue at the rehab facility until 07/11/21. The doctor at the rehab facility will monitor vancomycin level (goal of 15-20) and adjust dose as needed. Please continue your home medications including lasix. Your liver enzymes were elevated. Your home atorvastatin and ezetimibe are currently held until follow up with your Primary doctors who will monitor your liver function and resume medications as appropriate. Please ensure follow up with your Primary Doctor and Cardiology. It was a pleasure taking care of you. Pending Studies at Discharge: No Stand-Alone Forms: [facility] Skilled Items Patient informed of condition?: Yes DNR: No Discharge Level of Care: Acute rehab Communicable Disease: No Discharge Prognosis: Stable Lines: PICC Urinary Catheter: No Medications and DC Order Prescriptions: New vancomycin 1.5 gram recon soln 1.5 g IV Q24H Qty: 11 RF: 0 Continued furosemide 40 mg tablet 20 mg PO MoWeFr@[id number] RF: 0 levetiracetam 500 mg tablet 500 mg PO BID RF: 0 epinephrine [EpiPen] 0.3 mg/0.3 mL Auto-Injector 0.3 mg IM DIRECTED PRN (Reason: Allergic Reaction) RF: 0 terazosin 10 mg capsule 10 mg PO HS RF: 0 sildenafil (pulm.hypertension) 20 mg tablet 20 mg PO BID RF: 0 amiodarone 200 mg Tablet 200 mg PO QAM Qty: 30 RF: 0 aspirin 81 mg Tablet,Delayed Release (Dr/Ec) 81 mg PO QAM Qty: 30 RF: 0 potassium chloride 20 mEq Tablet,Er Particles/Crystals 20 meq PO QAM Qty: 30 RF: 0 gabapentin 400 mg capsule 400 mg PO HS Qty: 0 RF: 0 metoprolol succinate 50 mg tablet extended release 24 hr 75 mg PO BID RF: 0 finasteride 5 mg tablet 5 mg PO DAILY RF: 0 amlodipine 10 mg tablet 10 mg PO DAILY RF: 0 Discontinued atorvastatin 20 mg tablet 20 mg PO HS RF: 0 ezetimibe 10 mg tablet 10 mg PO DAILY RF: 0 Discharge Orders: Discharge Order (Routine); Ordered 06/30/21 Ordered By: Rehana Whalen Admission Data Admit Date/Time: 06/25/21 12:16 Attending Provider: Rehana Whalen I. Admit Provider: Anushka Cavazos Primary Care Provider: Henry Campbell Other Providers: Anushka Cavazos ; Dylan Prado ; Cameron Kan ; Killian Jack ; Yobani Kim I. ; Tano Bailey II ; Selina Moe ; Vasyl Smith ; Ryan Ackerman ; [facility] ; James Mendoza ; [facility] ; Fabian Lynn Other Interventions: Discharge Summary Assessment (RN) Last Done: 06/30/21 16:21
[2021-07-02] MEDS ORDERED: VANCOMYCIN TROUGH ONE (07:30)
--- NOTE | 2021-07-04 08:35 | Communication Note ---
Date of Service: July 04, 2021 Notified that 1 of blood cultures from 06/27/21 is now growing GPC in chains. I sent patient's PCP message on [employer] and [employer]. I called patient but was unanswered. I was able to get in touch with his son and updated him He will need repeat blood cultures and duration of antibiotics may need to be adjusted. Son reported patient was at [facility] Davida Winter Coordinator will notify [facility] as well
--- NOTE | 2021-07-07 13:01 | Coding Query ---
PRESENT ON ADMISSION QUERY To promote full compliance with coding requirements relating to pateint care, physician participation is requested in all cases of patient sitter uncertainty. Please assist us with the question(s) below: Please place an X within the parenthesis (x). The following diagnosis(es) listed in this patient's medical record require physician assistance to determine if they were present on admission (POA) or not. Please advise for each diagnosis whether it was present on admission, not present on admission, or if it was clinically undetermined. 1.Patient admitted with acute respiratory failure and acute CHF. Positive blood culture- . DS documents sepsis . Please check below the present on admission status for sepsis. thanks for your help! Tonio Wright. LINE O SCRIBE OPERATOR [facility] ( x ) Present On Admission ( ) Not Present On Admission ( ) Clinically Undetermined Thank you Tonio Wright *Definition of the present on admission (POA)-Present on admission is defined as present at the time the order for inpatient admission occurs. Conditions that develop during an outpatient encounter prior to a written order for inpatient admission (including emergency department, observation, or outpatient surgery) are considered present on admission. RICHY
== END 2021-06-30 17:46 | DRG 280 ==
LOC: ED 09:52 → SUATTDRO 12:16 → EDINP 12:16 → 2S 06-26 16:44

== ENCOUNTER 2021-07-21 18:14 | Inpatient (IN) ==
[2021-07-21] MEDS ORDERED: PANTOprazole 40 MG in SYRINGE 0 ML IV ONE (18:32)
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
--- NOTE | 2021-07-21 18:53 | XRay Report ---
XR chest 1V portable HISTORY: SEPSIS COMPARISON: Chest 06/25/2021. FINDINGS: No pneumothorax. Trace bilateral pleural effusions. The heart remains enlarged. Is left-leandro ed dual-chamber pacemaker and cardiac valve stent again noted. Cervical spinal fusion hardware persis t. Mild interstitial pulmonary edema has slightly improved. There are patchy left basilar densities. IMPRESSION: 1. Slight improvement in the mild interstitial pulmonary edema and trace bilateral pleural effusions. 2. Patchy left basilar densities are nonspecific but favor atelectasis. ACT 112: Negative or not required by law. Electronically signed by: Mihir Flores M.D. 07/21/2021 6:52 PM
[2021-07-21 19:03] LABS: Basophils # (auto) 0.03 K/uL (0-0.2); Basophils % (auto) 0.2 %; Eosinophils # (auto) 0.13 K/uL (0-0.5); Eosinophils % (auto) 0.7 %; Hematocrit (blood only) 27.6 % (42-52); Hemoglobin 8.7 g/dL (14.0-18.0); Immature Granulocytes # (auto) 0.06 K/uL (0.00-0.02); Immature Granulocytes % (auto) 0.3 %; Lymphocytes # (auto) 1.59 K/uL (1.2-3.4); Lymphocytes % (auto) 8.5 %; Mean Corpuscular Hemoglobin 25.8 pg (25-34); Mean Corpuscular Hgb Conc 31.5 g/dL (32-36); Mean Corpuscular Volume 81.9 fL (80-100); Mean Platelet Volume 8.9 fL (7.4-10.4); Monocytes % (auto) 8.5 %; Neutrophils % (auto) 81.8 %; Platelet Count 309 K/uL (130-400); RDW Coefficient of Variation 16.9 % (11.5-14.5); Red Blood Count 3.37 M/uL (4.7-6.1); White Blood Count 18.81 K/uL (4.8-10.8)
[2021-07-21 19:06] LABS: INR 1.1 (0.9-1.1); Partial Thromboplastin Time 27.7 Seconds (21.0-31.0); Prothrombin Time 11.5 Seconds (9.0-12.0)
[2021-07-21 19:23] LABS: Albumin Globulin Ratio 1.2 (0.9-2); Albumin Level 3.4 gm/dl (3.4-5.0); BUN Creatinine Ratio 12.6 (10-20); Bilirubin,Total 0.5 mg/dl (0.2-1.0); Creatinine Clr Calc Pharmacy 42.2 ml/min; Est GFR (African American) 70.8 ml/min; Est GFR (Non-African American) 61.1 ml/min; Globulin 2.8 gm/dl (2.5-4.0); Magnesium 1.6 mg/dl (1.7-2.4); Potassium 4.2 mmol/L (3.5-5.1); Total Protein 6.2 gm/dl (6.0-8.3); Troponin I 0.04 ng/ml (0-0.04)
[2021-07-21] MEDS ORDERED: VANCOMYCIN HCL 1,500 MG in SODIUM CHLORIDE 0.9% 500 ML IV ONE (19:49)
[2021-07-21] MEDS ORDERED: PIPERACILLIN/TAZOBACTAM 4.5 GM/120 ML BAG IV ONE (19:49)
[2021-07-21] MEDS ORDERED: VANCOMYCIN CONSULT ACTIVE PRN (19:49)
[2021-07-21] MEDS ORDERED: PIPERACILL/TAZOBAC CONSULT ACTIVE PRN (19:49)
[2021-07-21] MEDS ORDERED: ACETAMINOPHEN 325 MG TAB PO STA (19:59)
[2021-07-21] MEDS ORDERED: metroNIDAZOLE 500 MG TAB PO STA (20:27)
--- NOTE | 2021-07-21 21:01 | History & Physical Report ---
Date of Service July 21, 2021 Assessment & Plan (1) UGIB (upper gastrointestinal bleed): Plan: Differentials include gastritis, PUD, tumor Patient currently hemodynamically stable with hemoglobin at baseline Possible sepsis secondary to gastroenteritis rule out C. difficile Postprocedural 3 AVB sp PPM, hx PAF, not on anticoagulation secondary to hematuria from prostate cancer right-sided heart failure/cor pulmonale on Revatio (EF 60 to 65%, TTE 2021), some signs of fluid overload hx CAD, PVD status post stent Valvular heart disease ( sp TAVR, moderate MR, mild TR) ASD status post closure hypertension, BP slightly elevated hyperlipidemia, on statin Rx seizure disorder, stable on regimen DM2, diet controlled, new diagnosis with note of hemoglobin A1c of 6.15 February 2021 Ambulatory dysfunction, possible functional disability given recurrent admissions past alcohol/tobacco abuse Med telemetry IV PPI Appropriate to hold home aspirin for now Follow H&H, transfuse PRBC if hemoglobin less than 8 and or for symptomatic anemia GI consult Re: UGI B Check UA, CS, stool C. difficile Flagyl 1 dose for possible C. difficile given sepsis criteria Hold off on additional antibiotics until additional work-up results in Lasix 1 dose for fluid overload ISS BG goal 1 10-1 40, update hemoglobin A1c PT OT eval DVT prophylaxis. TEDS (RE GI bleed, SCDs contraindicated with history of PAD) Full code Patient's son requesting update providers. Ms. Jayson Dunham, contact #[phone] Text document was generated using Beeline voice recognition software. It may contain grammatical or spelling errors. Kindly contact undersigned for clarification of any documentation item in question. History of Present Illness Chief Complaint: Diarrhea, weakness Primary Care Provider: Henry Campbell MD History obtained from patient, family, and records. Patient is a fair historian. Medical history significant for right-sided heart failure/cor pulmonale on Revatio (EF 60 to 65%, TTE 2021), CAD, PVD status post stent, aortic stenosis sp TAVR, ASD status post closure, hypertension, hyperlipidemia, prostate cancer status post surgery/radiation, seizure disorder, chronic anemia (baseline hemoglobin of 8-9), past tobacco/alcohol abuse. Monthly confinements since May 2021. Last confinement last month for decompensated heart failure and sepsis secondary to Enterococcus bacteremia secondary to complicated UTI. Patient discharged on 2-week IV vancomycin course. Patient had a fall at home last night after missing the commode. Patient has been getting weak as per son. Dark loose stools without abdominal pain. Weight up by 5 pounds. Patient denies chest pain, cough, S OB, dysuria symptoms. Patient seen at PCPs office and directed to ER for evaluation. IV Zosyn given at the ER for sepsis. IV PPI administered for UGI B. Medical Historyas above 2002 colonoscopy was normal as per records. 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 Allergies Allergy/AdvReac Type Severity Reaction Status Date / Time bee venom protein (honey bee) Allergy Severe ANAPHYLAXIS-YELLOW Verified 07/21/21 20:52 JACKETS lorazepam AdvReac Mild oversedation Verified 07/21/21 20:52 from AWSS protocol Uncoded Nonscreenable Allergy Severe All Uncoded 07/21/21 20:52 Allergen IV's must be administered thru 0.2mic in-line filter Home Medications Medication Instructions Recorded Confirmed Type epinephrine 0.3 mg/0.3 mL 0.3 mg IM DIRECTED PRN 02/18/21 07/21/21 History injection, auto-injector (EpiPen) furosemide 40 mg tablet 20 mg PO 3XWK 02/18/21 07/21/21 History levetiracetam 500 mg tablet 500 mg PO BID 02/18/21 07/21/21 History sildenafil (pulm.hypertension) 20 20 mg PO BID 02/18/21 07/21/21 History mg tablet terazosin 10 mg capsule 10 mg PO HS 02/18/21 07/21/21 History amiodarone 200 mg tablet 200 mg PO QAM #30 tab 03/03/21 07/21/21 Rx aspirin 81 mg tablet,delayed 81 mg PO QAM #30 tab 03/03/21 07/21/21 Rx release gabapentin 400 mg capsule 400 mg PO HS #0 cap 06/09/21 07/21/21 Rx amlodipine 10 mg tablet 5 mg PO DAILY 06/25/21 07/21/21 History finasteride 5 mg tablet 5 mg PO DAILY 06/25/21 07/21/21 History metoprolol succinate 50 mg 75 mg PO BID 06/25/21 07/21/21 History tablet,extended release 24 hr atorvastatin 20 mg tablet 20 mg PO DAILY 07/21/21 07/21/21 History ezetimibe 10 mg tablet 10 mg PO DAILY 07/21/21 07/21/21 History iron,carbonyl 65 mg-vitamin C 125 1 tab PO DAILY 07/21/21 07/21/21 History mg tablet,delayed release (Vitron-C) potassium chloride 10 mEq 10 meq PO QAM 07/21/21 07/21/21 History tablet,extended release Past Med/Surg History Medical History Acute hyponatremia Anemia Anemia Atrial fibrillation, new onset Atrial septal defect, secundum CAD (coronary atherosclerotic disease) Carotid artery stenosis CHI (closed head injury) Chronic diastolic CHF (congestive heart failure), NYHA class 3 Closed sacral fracture Complete heart block, post-surgical Elevated troponin Fall Generalized muscle weakness Gout H/O alcohol dependence Hematoma of scalp Hematuria Hypokalemia Lumbar radiculopathy Moderate aortic stenosis Orthostasis PVD (peripheral vascular disease) Right heart failure due to pulmonary hypertension on Revatio, chronic oxygen 2LPM Weakness Surgical History S/P appendectomy 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 King Status post lumbar surgery 2014 Social History Smoking Status: Former smoker Tobacco Type: Cigarettes Smoking End Date: 1969; Second Hand Exposure: No; Do You Dip or Chew Tobacco: No; Tobacco Cessation Education Requested by Patient: No Hx Alcohol Use: No Hx Substance Use: No Preferred Language: Uzbek Communication Ability: Effective Hand Mold Maker Required: No Beliefs That Will Affect Care: None marital status: Current Living Situation: Spouse Current Living Situation Comment: Lives with How many Children do You have: 1 Other Information That Helps Us Care for You: No Feels Safe at Home: Yes Safety Concerns: Feels Safe At This Time Assistive Devices: Cane, Oxygen - at Night and Walker Review of Systems Review of Systems: As per HPI, all 10 systems reviewed, all other ROS negative Physical Exam Physical Exam: GENERAL: slightly uncomfortable, tremulous, mild hearing impairment, no respiratory distress SKIN: Pallor, warm HEENT: Pale palpebral conjunctivae, no ptosis, dry buccal mucosa NECK : Supple, no tenderness CHEST : Decreased breath sounds, no tenderness HEART : RRR, no obvious murmurs ABDOMEN: Some distention, nontender EXTREMITIES : Minimal LE swelling, no LE tenderness, no other conspicuous deformities noted NEUROLOGIC : Coherent, no facial asymmetry, mild hearing impairment, tremulous, gait and stance not assessed Results & Data Results & Data ([facility]) Vital Signs (Past 12 Hours) Vital Signs Temp Pulse Pulse Resp BP BP Pulse Ox 07/21/21 20:59 86 18 130/54 L 93 07/21/21 20:58 18 93 07/21/21 19:27 18 95 07/21/21 19:26 79 18 147/69 H 95 07/21/21 19:25 79 18 147/69 H 95 07/21/21 18:45 93 07/21/21 18:42 14 92 07/21/21 18:15 38.6 C H 88 18 134/64 94 Laboratory Results Laboratory Results WBC 18.81 K/uL (4.8-10.8) H 07/21/21 18:30 RBC 3.37 M/uL (4.7-6.1) L 07/21/21 18:30 Hgb 8.7 g/dL (14.0-18.0) L 07/21/21 18:30 Hct 27.6 % (42-52) L 07/21/21 18:30 MCV 81.9 fL (80-100) 07/21/21 18:30 MCH 25.8 pg (25-34) 07/21/21 18:30 MCHC 31.5 g/dL (32-36) L 07/21/21 18:30 RDW Std Deviation 51.0 fL (36.4-46.3) H 07/21/21 18:30 RDW Coeff of Ruth 16.9 % (11.5-14.5) H 07/21/21 18:30 Plt Count 309 K/uL (130-400) 07/21/21 18:30 MPV 8.9 fL (7.4-10.4) 07/21/21 18:30 Immature Gran % (Auto) 0.3 % 07/21/21 18:30 Neut % (Auto) 81.8 % 07/21/21 18:30 Lymph % (Auto) 8.5 % 07/21/21 18:30 [place] % (Auto) 8.5 % 07/21/21 18:30 Eos % (Auto) 0.7 % 07/21/21 18:30 Baso % (Auto) 0.2 % 07/21/21 18:30 Neut # (Auto) 15.40 K/uL (1.4-6.5) H 07/21/21 18:30 Lymph # (Auto) 1.59 K/uL (1.2-3.4) 07/21/21 18:30 [place] # (Auto) 1.60 K/uL (0.11-0.59) H 07/21/21 18:30 Eos # (Auto) 0.13 K/uL (0-0.5) 07/21/21 18:30 Baso # (Auto) 0.03 K/uL (0-0.2) 07/21/21 18:30 Immature Gran # (Auto) 0.06 K/uL (0.00-0.02) H 07/21/21 18:30 PT 11.5 Seconds (9.0-12.0) 07/21/21 18:30 INR 1.1 (0.9-1.1) 07/21/21 18:30 APTT 27.7 Seconds (21.0-31.0) 07/21/21 18:30 PTT Ratio 1.0 07/21/21 18:30 Sodium 135 mmol/L (136-145) L 07/21/21 18:30 Potassium 4.2 mmol/L (3.5-5.1) 07/21/21 18:30 Chloride 102 mmol/L (98-107) 07/21/21 18:30 Carbon Dioxide 26 mmol/L (21-32) 07/21/21 18:30 Anion Gap 7 (3-11) 07/21/21 18:30 BUN 14 mg/dl (6-23) 07/21/21 18:30 Creatinine 1.11 mg/dl (0.6-1.4) 07/21/21 18:30 Est Cr Clr Drug Dosing 42.2 ml/min 07/21/21 18:30 Est GFR ( Amer) 70.8 ml/min 07/21/21 18:30 Est GFR (Non-Af Amer) 61.1 ml/min 07/21/21 18:30 BUN/Creatinine Ratio 12.6 (10-20) 07/21/21 18: Glucose 111 mg/dl (70-99(Fasting)) H 07/21/21 18:30 Lactate 1.4 mmol/L (0.4-2.0) 07/21/21 18:30 Calcium 9.0 mg/dl (8.5-10.1) 07/21/21 18: Magnesium 1.6 mg/dl (1.7-2.4) L 07/21/21 18:30 Total Bilirubin 0.5 mg/dl (0.2-1.0) 07/21/21 18:30 AST 12 U/L (13-39) L 07/21/21 18:30 ALT 9 U/L (7-52) 07/21/21 18:30 Alkaline Phosphatase 72 U/L (34-104) 07/21/21 18:30 Troponin I 0.04 ng/ml (0-0.04) 07/21/21 18:30 Total Protein 6.2 gm/dl (6.0-8.3) 07/21/21 18:30 Albumin 3.4 gm/dl (3.4-5.0) 07/21/21 18:30 Globulin 2.8 gm/dl (2.5-4.0) 07/21/21 18: Albumin/Globulin Ratio 1.2 (0.9-2) 07/21/21 18:30 Procalcitonin 0.07 ng/ml (0-0.5) 07/21/21 18:30 Norovirus RNA (PCR) Cancelled 07/21/21 20:30 SARS-CoV-2, RNA, NAAT NEGATIVE (NEGATIVE) 07/21/21 20:05 Blood Type A Negative 07/21/21 18:52 Antibody Screen NEGATIVE 07/21/21 18:52 Impressions Chest X-Ray 07/21/21 18:18 XR chest 1V portable HISTORY: SEPSIS COMPARISON: Chest 06/25/2021. FINDINGS: No pneumothorax. Trace bilateral pleural effusions. The heart remains enlarged. Is left-sided dual-chamber pacemaker and cardiac valve stent again noted. Cervical spinal fusion hardware persist. Mild interstitial pulmonary edema has slightly improved. There are patchy left basilar densities. IMPRESSION: 1. Slight improvement in the mild interstitial pulmonary edema and trace bilateral pleural effusions. 2. Patchy left basilar densities are nonspecific but favor atelectasis. ACT 112: Negative or not required by law. Electronically signed by: Mihir Flores M.D. 07/21/2021 6:52 PM Diagnostic Findings EKG as per my interpretation: Rate 80, paced rhythm
[2021-07-21] MEDS ORDERED: FUROSEMIDE INJ 20 MG/2 ML VIAL IV ONE (21:11)
[2021-07-21] MEDS ORDERED: MAGNESIUM SULFATE / D5W 1 GM/100 ML BAG IV ONE (21:33)
[2021-07-21 21:42] LABS: Hematocrit (blood only) 23.9 % (42-52); Hemoglobin 7.8 g/dL (14.0-18.0)
[2021-07-21] MEDS ORDERED: LORazepam 2 MG/1 ML VIAL IV PRN (21:59)
[2021-07-21] MEDS ORDERED: SODIUM CHLORIDE 0.9% 250 ML IV PRN (22:04)
[2021-07-21] MEDS ORDERED: THIAMINE HCL 100 MG in SYRINGE 9 ML IV STA (22:06)
[2021-07-21] MEDS ORDERED: PROMETHAZINE HCL 6.25 MG in SODIUM CHLORIDE 0.9% 50 ML IV PRN (22:35)
[2021-07-21] MEDS ORDERED: GLUCOSE 10 TABS/TUBE PO PRN (22:35)
[2021-07-21] MEDS ORDERED: GLUCOSE 40% GEL 15 GM TUBE PO PRN (22:35)
[2021-07-21] MEDS ORDERED: CARBOHYDRATES FOR HYPOGLYCEMIA PO PRN (22:35)
[2021-07-21] MEDS ORDERED: GLUCAGON FOR INJ 1 MG VIAL SQ PRN (22:35)
[2021-07-21] MEDS ORDERED: DEXTROSE 50% 50 ML SYRINGE IV PRN (22:35)
[2021-07-21 22:41] LABS: Adenovirus F 40/41 PCR Not Detected (NotDetected); Astrovirus PCR Not Detected (NotDetected); Cryptosporidium PCR Not Detected (NotDetected); Cyclospora cayetanensis PCR Not Detected (NotDetected); Entamoeba histolytica PCR Not Detected (NotDetected); Enteroaggregative E.coli(EAEC) Not Detected (NotDetected); Enteropathogenic E.coli (EPEC) Not Detected (NotDetected); Enterotoxigenic E.coli (ETEC) Not Detected (NotDetected); Giardia lamblia PCR Not Detected (NotDetected); Norovirus GI/GII PCR Not Detected (NotDetected); Plesiomonas shigelloides PCR Not Detected (NotDetected); Rotavirus A PCR Not Detected (NotDetected); Salmonella PCR Not Detected (NotDetected); Sapovirus PCR Not Detected (NotDetected); Shiga-like Toxin E.coli (STEC) Not Detected (NotDetected); Shigella/Enteroinvasive E.coli Not Detected (NotDetected); Vibrio cholerae PCR Not Detected (NotDetected); Vibrio species PCR Not Detected (NotDetected); Yersinia enterocolitica PCR Not Detected (NotDetected)
[2021-07-21 22:42] LABS: Cdiff Antigen Positive; Cdiff Toxin A+B Positive Cdiff Toxin (Negative)
[2021-07-21 22:45] LABS: Campylobacter PCR Not Detected (NotDetected)
[2021-07-22] MEDS: levETIRAcetam 500 MG TAB PO SCH ×3 (00:19→20:44)
[2021-07-22] MEDS: INSULIN ASPART PER UNIT SC SCH ×5 (00:26→22:21)
[2021-07-22] MEDS: METOPROLOL SUCC 25MG EXT REL TAB PO SCH ×3 (00:30→20:53)
[2021-07-22] MEDS: PANTOprazole 40 MG in DEXTROSE 5% 100 ML IV SCH ×3 (01:36→12:08)
[2021-07-22] MEDS: ACETAMINOPHEN 325 MG TAB PO PRN (03:59)
[2021-07-22] MEDS ORDERED: SODIUM CHLORIDE 0.9% 250 ML IV PRN (04:34)
[2021-07-22 04:41] LABS: Blood Urine Negative (Negative)
[2021-07-22 05:02] LABS: Basophils # (auto) 0.02 K/uL (0-0.2); Basophils % (auto) 0.1 %; Eosinophils % (auto) 0.6 %; Hematocrit (blood only) 25.3 % (42-52); Hemoglobin 8.3 g/dL (14.0-18.0); Immature Granulocytes # (auto) 0.07 K/uL (0.00-0.02); Immature Granulocytes % (auto) 0.4 %; Lymphocytes # (auto) 0.74 K/uL (1.2-3.4); Lymphocytes % (auto) 4.3 %; Mean Corpuscular Hemoglobin 26.4 pg (25-34); Mean Corpuscular Hgb Conc 32.8 g/dL (32-36); Mean Corpuscular Volume 80.6 fL (80-100); Mean Platelet Volume 8.2 fL (7.4-10.4); Monocytes # (auto) 1.71 K/uL (0.11-0.59); Monocytes % (auto) 9.8 %; Neutrophils # (auto) 14.77 K/uL (1.4-6.5); Neutrophils % (auto) 84.8 %; Platelet Count 239 K/uL (130-400); RDW Coefficient of Variation 16.7 % (11.5-14.5); RDW Standard Deviation 49.9 fL (36.4-46.3); Red Blood Count 3.14 M/uL (4.7-6.1); White Blood Count 17.41 K/uL (4.8-10.8)
[2021-07-22 05:48] LABS: Appearance Urine Clear (Clear); Bilirubin Urine Negative (Negative); Blood Urine Negative (Negative); Color Urine Yellow; Glucose Urine UA Negative (Negative); Ketones Urine Negative (Negative); Leukocyte Esterase Urine Negative (Negative); Nitrite Urine Negative (Negative); Protein Urine Negative (Negative); Urobilinogen Urine Negative (Negative)
[2021-07-22 07:18] LABS: Estimated Average Glucose 123 mg/dl; Hemoglobin A1C 5.9 % (4.5-5.6)
[2021-07-22 07:28] LABS: BUN Creatinine Ratio 11.5 (10-20); Calcium 8.3 mg/dl (8.5-10.1); Creatinine Clr Calc Pharmacy 41.5 ml/min; Est GFR (African American) 69.3 ml/min; Est GFR (Non-African American) 59.8 ml/min; Magnesium 1.7 mg/dl (1.7-2.4); Potassium 3.1 mmol/L (3.5-5.1)
--- NOTE | 2021-07-22 08:10 | Gastrointestinal Consultation ---
Date of Consultation July 22, 2021 Assessment & Plan (1) C. difficile diarrhea: This is an 81 y/o male with multiple comorbids admitted w/ weakness, diarrhea and dark stools, fever, leukocytosis. We are consulted for UGIB, however HGB at baseline and no elevated BUN, no overt GIB makes this unlikely. He's had no BMs overnight and HGB remains stable. Abd is soft, NT. He is positive for C diff and would recommend tx for that. - Start Vancomycin 125 mg QID x 10 days - Monitor GI output - Trend H&H, transfuse PRN - Stop IV PPI - Can have diet as tolerated - No role for endoscopy unless pt develops overt GIB or drop in HGB - Tx for his other comorbidities as per primary team - GI will sign off Thank you for allowing us to participate in the care of this patient. Please call with any acute changes, questions or concerns. Please see addendum below with additional recommendation from my supervising physician. Supervising Physician Co-Signing Physician Notes I performed a history and physical examination of the patient today, including specifically on physical exam - soft abdomen. I have discussed the patient's management with the advanced practitioner. Please refer to the nurse practitioner's note for the documented findings and plan of care. Mild CDI Treat with PO Vanc Minimize use of ABx. Recall GI if needed. History of Present Illness Reason for Consultation: ugib Requesting Physician: Dr. Maurer Attending Physician: Fabian Lynn MD History of Present Illness This is an 81 y/o male with PMhx right heart failure/Cor pulmonale, CAD, PVD, s/p TAVR, ASD s/p closure, HTN, HLD, prostate CA s/p surgery/radiation, chronic anemia with Baseline hgb 8-9, and others admitted after presenting with weakness. He had a fall at home after missing the commode. He was also having dark loose stools. On arrival had a fever, leukocytosis, concerning for sepsis and started on IVF, IV ABX. HGB at baseline on arrival (8.7), normal BUN and remains so overnight, ? concern for GIB and was started on PPI IV. Stool + for C diff. Today has hypokalemia, hypnatremia. He's afebrile. He is NPO; he is hungry and would like to eat. Today states he is feeling slightly better. No BMs overnight. He tells me he had approx 3 dark loose BMs at home prior to admission; no hematochezia, n/v, hematemesis. Previous admission in May for heart failure, sepsis, bacteremia, UTI and was on ABX until recently. Denies abd pain, bloating, CP, SOB, denies h/o GERD, dysphagia, or being on PPI at home. Allergies Allergy/AdvReac Type Severity Reaction Status Date / Time bee venom protein (honey bee) Allergy Severe ANAPHYLAXIS-YELLOW Verified 07/21/21 20:52 JACKETS lorazepam AdvReac Mild oversedation Verified 07/21/21 20:52 from AWSS protocol Uncoded Nonscreenable Allergy Severe All Uncoded 07/21/21 20:52 Allergen IV's must be administered thru 0.2mic in-line filter Home Medications Medication Instructions Recorded Confirmed Type epinephrine 0.3 mg/0.3 mL 0.3 mg IM DIRECTED PRN 02/18/21 07/21/21 History injection, auto-injector (EpiPen) furosemide 40 mg tablet 20 mg PO 3XWK 02/18/21 07/21/21 History levetiracetam 500 mg tablet 500 mg PO BID 02/18/21 07/21/21 History sildenafil (pulm.hypertension) 20 20 mg PO BID 02/18/21 07/21/21 History mg tablet terazosin 10 mg capsule 10 mg PO HS 02/18/21 07/21/21 History amiodarone 200 mg tablet 200 mg PO QAM #30 tab 03/03/21 07/21/21 Rx aspirin 81 mg tablet,delayed 81 mg PO QAM #30 tab 03/03/21 07/21/21 Rx release gabapentin 400 mg capsule 400 mg PO HS #0 cap 06/09/21 07/21/21 Rx amlodipine 10 mg tablet 5 mg PO DAILY 06/25/21 07/21/21 History finasteride 5 mg tablet 5 mg PO DAILY 06/25/21 07/21/21 History metoprolol succinate 50 mg 75 mg PO BID 06/25/21 07/21/21 History tablet,extended release 24 hr atorvastatin 20 mg tablet 20 mg PO DAILY 07/21/21 07/21/21 History ezetimibe 10 mg tablet 10 mg PO DAILY 07/21/21 07/21/21 History iron,carbonyl 65 mg-vitamin C 125 1 tab PO DAILY 07/21/21 07/21/21 History mg tablet,delayed release (Vitron-C) potassium chloride 10 mEq 10 meq PO QAM 07/21/21 07/21/21 History tablet,extended release Patient History Medical History Acute hyponatremia Anemia Anemia Atrial fibrillation, new onset Atrial septal defect, secundum CAD (coronary atherosclerotic disease) Carotid artery stenosis CHI (closed head injury) Chronic diastolic CHF (congestive heart failure), NYHA class 3 Closed sacral fracture Complete heart block, post-surgical Elevated troponin Fall Generalized muscle weakness Gout H/O alcohol dependence Hematoma of scalp Hematuria Hypokalemia Lumbar radiculopathy Moderate aortic stenosis Orthostasis PVD (peripheral vascular disease) Right heart failure due to pulmonary hypertension on Revatio, chronic oxygen 2LPM Weakness Surgical History S/P appendectomy 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 King Status post lumbar surgery 2014 Social History Smoking Status: Former smoker Tobacco Type: Cigarettes Smoking End Date: 1969; Second Hand Exposure: No; Do You Dip or Chew Tobacco: No; Tobacco Cessation Education Requested by Patient: No Hx Alcohol Use: No Hx Substance Use: No Preferred Language: Swedish Communication Ability: Effective Counter Clerk Required: No Beliefs That Will Affect Care: None marital status: Current Living Situation: Spouse Current Living Situation Comment: Lives with How many Children do You have: 1 Other Information That Helps Us Care for You: No Feels Safe at Home: Yes Safety Concerns: Feels Safe At This Time Assistive Devices: Walker Review of Systems Review of Systems: All systems reviewed & are unremarkable except as noted in HPI & below Physical Exam Constitutional: Chronically but not acutely ill, no acute distress Eyes: PERRL, conjunctivae normal, anicteric sclerae Respiratory: normal respiratory effort, lungs clear to auscultation Cardiovascular: RRR, no murmur, no edema Gastrointestinal (Abdomen): normal bowel sounds, soft, nontender, no hepatosplenomegaly Skin: no rashes, warm and dry Psychiatric: A+Ox3, euthymic affect Results & Data ([facility]) Vital Signs (Past 12 Hours) Vital Signs Temp Pulse Pulse Pulse Resp BP BP 07/22/21 04:55 37.2 C 07/22/21 03:27 37.5 C 78 16 114/48 L 07/22/21 02:58 72 07/22/21 01:41 37.0 C 84 18 122/53 L 07/22/21 00:28 37.0 C 84 18 122/53 L 07/21/21 22:06 70 18 102/55 L 07/21/21 21:37 70 18 102/55 L 07/21/21 21:01 18 07/21/21 21:00 83 18 135/40 L 07/21/21 20:59 86 18 130/54 L 07/21/21 20:58 18 Pulse Ox 07/22/21 04:55 07/22/21 03:27 95 07/22/21 02:58 07/22/21 01:41 93 07/22/21 00:28 93 07/21/21 22:06 94 07/21/21 21:37 94 07/21/21 21:01 92 07/21/21 21:00 92 07/21/21 20:59 93 07/21/21 20:58 93 Laboratory Results 07/22/21 07/22/21 07/22/21 Range/Units Unknown 12:19 11:33 WBC (4.8-10.8) K/uL RBC (4.7-6.1) M/uL Hgb 8.4 L (14.0-18.0) g/dL Hct 25.9 L (42-52) % MCV (80-100) fL MCH (25-34) pg MCHC (32-36) g/dL RDW Std Deviation (36.4-46.3) fL RDW Coeff of Ruth (11.5-14.5) % Plt Count (130-400) K/uL MPV (7.4-10.4) fL Immature Gran % (Auto) % Neut % (Auto) % Lymph % (Auto) % [place] % (Auto) % Eos % (Auto) % Baso % (Auto) % Neut # (Auto) (1.4-6.5) K/uL Lymph # (Auto) (1.2-3.4) K/uL [place] # (Auto) (0.11-0.59) K/uL Eos # (Auto) (0-0.5) K/uL Baso # (Auto) (0-0.2) K/uL Immature Gran # (Auto) (0.00-0.02) K/uL PT (9.0-12.0) Seconds INR (0.9-1.1) APTT (21.0-31.0) Seconds PTT Ratio Sodium (136-145) mmol/L Potassium (3.5-5.1) mmol/L Chloride (98-107) mmol/L Carbon Dioxide (21-32) mmol/L Anion Gap (3-11) BUN (6-23) mg/dl Creatinine (0.6-1.4) mg/dl Est Cr Clr Drug Dosing ml/min Est GFR ( Amer) ml/min Est GFR (Non-Af Amer) ml/min BUN/Creatinine Ratio (10-20) Glucose (70-99(Fasting)) mg/dl POC Glucose 125 H (70-99) mg/dl Estimat Average Glucose mg/dl Hemoglobin A1c (4.5-5.6) % Lactate (0.4-2.0) mmol/L Calcium (8.5-10.1) mg/dl Magnesium (1.7-2.4) mg/dl Total Bilirubin (0.2-1.0) mg/dl AST (13-39) U/L ALT (7-52) U/L Alkaline Phosphatase (34-104) U/L Troponin I (0-0.04) ng/ml B-Natriuretic Peptide (0-100) pg/ml Total Protein (6.0-8.3) gm/dl Albumin (3.4-5.0) gm/dl Globulin (2.5-4.0) gm/dl Albumin/Globulin Ratio (0.9-2) Procalcitonin (0-0.5) ng/ml Urine Color Yellow Urine Appearance Clear (Clear) Urine pH 5.0 (4.5-7.5) Ur Specific [place] 1.010 (1.000-1.030) Urine Protein Negative (Negative) Urine Glucose (UA) Negative (Negative) Urine Ketones Negative (Negative) Urine Blood Negative (Negative) Urine Nitrite Negative (Negative) Urine Bilirubin Negative (Negative) Urine Urobilinogen Negative (Negative) Ur Leukocyte Esterase Negative (Negative) Stl C. cayetanensis PCR (NotDetected) Stool Rotavirus A PCR (NotDetected) Stl Adenov F 40/41 PCR (NotDetected) Stool Astrovirus (PCR) (NotDetected) Stool Campylobacter PCR (NotDetected) Stl C.difficile Tox A&B (Negative) Stl C. diff Tox A/B PCR (NotDetected) Stool Cryptosporidium PCR (NotDetected) Stl E.coli Shiga Tox PCR (NotDetected) Stl Enterotoxigenic E PCR (NotDetected) Stool EPEC (PCR) (NotDetected) Stool EAEC (PCR) (NotDetected) Stl E. histolytica PCR (NotDetected) Stool Giardia Lamblia PCR (NotDetected) Stool Salmonella PCR (NotDetected) Stool Sapovirus (PCR) (NotDetected) Stl P. shigelloides PCR (NotDetected) Stl Shigella/EIEC PCR (NotDetected) St Y.enterocolitica PCR (NotDetected) Stool Vibrio (PCR) (NotDetected) Stl Vibrio cholerae PCR (NotDetected) Stl Norovirus GI/GII PCR (NotDetected) Norovirus RNA (PCR) SARS-CoV-2, RNA, NAAT (NEGATIVE) Blood Type Antibody Screen Crossmatch Transfusion React Date Transfusion React Time Tx React Symptoms Reaction Clerical Check Lab Clerical Err Check React Component Return Volume Returned Pre-Trans Blood Type Pre-Trans Vis Hemolysis Pre-Trans KAY (Negative) Pre-Trans KAY IgG (Negative) Pre-Trans KAY Poly (Negative) Pre-Trans KAY C3b, C3d (Negative) Post-Trans Blood Type Post-Tx Visible Hemolys Post-Trans KAY (Negatuve) Post-Trans KAY IgG (Negative) Post-Trans KAY Poly (Negative) Post-Trans KAY C3b, C3d (Negative) Post-Trans Ur Hemoglobin Reaction Path Interpret Transfusion Serv Com 07/22/21 07/22/21 07/22/21 Range/Units 07:31 05:31 04:50 WBC (4.8-10.8) K/uL RBC (4.7-6.1) M/uL Hgb (14.0-18.0) g/dL Hct (42-52) % MCV (80-100) fL MCH (25-34) pg MCHC (32-36) g/dL RDW Std Deviation (36.4-46.3) fL RDW Coeff of Ruth (11.5-14.5) % Plt Count (130-400) K/uL MPV (7.4-10.4) fL Immature Gran % (Auto) % Neut % (Auto) % Lymph % (Auto) % [place] % (Auto) % Eos % (Auto) % Baso % (Auto) % Neut # (Auto) (1.4-6.5) K/uL Lymph # (Auto) (1.2-3.4) K/uL [place] # (Auto) (0.11-0.59) K/uL Eos # (Auto) (0-0.5) K/uL Baso # (Auto) (0-0.2) K/uL Immature Gran # (Auto) (0.00-0.02) K/uL PT (9.0-12.0) Seconds INR (0.9-1.1) APTT (21.0-31.0) Seconds PTT Ratio Sodium (136-145) mmol/L Potassium (3.5-5.1) mmol/L Chloride (98-107) mmol/L Carbon Dioxide (21-32) mmol/L Anion Gap (3-11) BUN (6-23) mg/dl Creatinine (0.6-1.4) mg/dl Est Cr Clr Drug Dosing ml/min Est GFR ( Amer) ml/min Est GFR (Non-Af Amer) ml/min BUN/Creatinine Ratio (10-20) Glucose (70-99(Fasting)) mg/dl POC Glucose 127 H 129 H (70-99) mg/dl Estimat Average Glucose mg/dl Hemoglobin A1c (4.5-5.6) % Lactate (0.4-2.0) mmol/L Calcium (8.5-10.1) mg/dl Magnesium (1.7-2.4) mg/dl Total Bilirubin (0.2-1.0) mg/dl AST (13-39) U/L ALT (7-52) U/L Alkaline Phosphatase (34-104) U/L Troponin I (0-0.04) ng/ml B-Natriuretic Peptide (0-100) pg/ml Total Protein (6.0-8.3) gm/dl Albumin (3.4-5.0) gm/dl Globulin (2.5-4.0) gm/dl Albumin/Globulin Ratio (0.9-2) Procalcitonin (0-0.5) ng/ml Urine Color Urine Appearance (Clear) Urine pH (4.5-7.5) Ur Specific [place] (1.000-1.030) Urine Protein (Negative) Urine Glucose (UA) (Negative) Urine Ketones (Negative) Urine Blood (Negative) Urine Nitrite (Negative) Urine Bilirubin (Negative) Urine Urobilinogen (Negative) Ur Leukocyte Esterase (Negative) Stl C. cayetanensis PCR (NotDetected) Stool Rotavirus A PCR (NotDetected) Stl Adenov F 40/41 PCR (NotDetected) Stool Astrovirus (PCR) (NotDetected) Stool Campylobacter PCR (NotDetected) Stl C.difficile Tox A&B (Negative) Stl C. diff Tox A/B PCR (NotDetected) Stool Cryptosporidium PCR (NotDetected) Stl E.coli Shiga Tox PCR (NotDetected) Stl Enterotoxigenic E PCR (NotDetected) Stool EPEC (PCR) (NotDetected) Stool EAEC (PCR) (NotDetected) Stl E. histolytica PCR (NotDetected) Stool Giardia Lamblia PCR (NotDetected) Stool Salmonella PCR (NotDetected) Stool Sapovirus (PCR) (NotDetected) Stl P. shigelloides PCR (NotDetected) Stl Shigella/EIEC PCR (NotDetected) St Y.enterocolitica PCR (NotDetected) Stool Vibrio (PCR) (NotDetected) Stl Vibrio cholerae PCR (NotDetected) Stl Norovirus GI/GII PCR (NotDetected) Norovirus RNA (PCR) SARS-CoV-2, RNA, NAAT (NEGATIVE) Blood Type Antibody Screen Crossmatch Transfusion React Date 07/22/2021 Transfusion React Time 0345 Tx React Symptoms FEVER AND CLAMMY Reaction Clerical Check None Found Lab Clerical Err Check None Found React Component Return PCLR Volume Returned 300 Pre-Trans Blood Type A NEGATIVE Pre-Trans Vis Hemolysis No Pre-Trans KAY Negative (Negative) Pre-Trans KAY IgG Neg (Negative) Pre-Trans KAY Poly Neg (Negative) Pre-Trans KAY C3b, C3d Neg (Negative) Post-Trans Blood Type A NEGATIVE Post-Tx Visible Hemolys No Post-Trans KAY Negative (Negatuve) Post-Trans KAY IgG Neg (Negative) Post-Trans KAY Poly Neg (Negative) Post-Trans KAY C3b, C3d Neg (Negative) Post-Trans Ur Hemoglobin Reaction Path Interpret Transfusion Serv Com 07/22/21 07/22/21 07/22/21 Range/Units 04:50 04:50 04:50 WBC 17.41 H (4.8-10.8) K/uL RBC 3.14 L (4.7-6.1) M/uL Hgb 8.3 L (14.0-18.0) g/dL Hct 25.3 L (42-52) % MCV 80.6 (80-100) fL MCH 26.4 (25-34) pg MCHC 32.8 (32-36) g/dL RDW Std Deviation 49.9 H (36.4-46.3) fL RDW Coeff of Ruth 16.7 H (11.5-14.5) % Plt Count 239 (130-400) K/uL MPV 8.2 (7.4-10.4) fL Immature Gran % (Auto) 0.4 % Neut % (Auto) 84.8 % Lymph % (Auto) 4.3 % [place] % (Auto) 9.8 % Eos % (Auto) 0.6 % Baso % (Auto) 0.1 % Neut # (Auto) 14.77 H (1.4-6.5) K/uL Lymph # (Auto) 0.74 L (1.2-3.4) K/uL [place] # (Auto) 1.71 H (0.11-0.59) K/uL Eos # (Auto) 0.10 (0-0.5) K/uL Baso # (Auto) 0.02 (0-0.2) K/uL Immature Gran # (Auto) 0.07 H (0.00-0.02) K/uL PT (9.0-12.0) Seconds INR (0.9-1.1) APTT (21.0-31.0) Seconds PTT Ratio Sodium 134 L (136-145) mmol/L Potassium 3.1 L D (3.5-5.1) mmol/L Chloride 102 (98-107) mmol/L Carbon Dioxide 26 (21-32) mmol/L Anion Gap 6 (3-11) BUN 13 (6-23) mg/dl Creatinine 1.13 (0.6-1.4) mg/dl Est Cr Clr Drug Dosing 41.5 ml/min Est GFR ( Amer) 69.3 ml/min Est GFR (Non-Af Amer) 59.8 ml/min BUN/Creatinine Ratio 11.5 (10-20) Glucose 117 H (70-99(Fasting)) mg/dl POC Glucose (70-99) mg/dl Estimat Average Glucose 123 mg/dl Hemoglobin A1c 5.9 H (4.5-5.6) % Lactate (0.4-2.0) mmol/L Calcium 8.3 L (8.5-10.1) mg/dl Magnesium 1.7 (1.7-2.4) mg/dl Total Bilirubin (0.2-1.0) mg/dl AST (13-39) U/L ALT (7-52) U/L Alkaline Phosphatase (34-104) U/L Troponin I (0-0.04) ng/ml B-Natriuretic Peptide (0-100) pg/ml Total Protein (6.0-8.3) gm/dl Albumin (3.4-5.0) gm/dl Globulin (2.5-4.0) gm/dl Albumin/Globulin Ratio (0.9-2) Procalcitonin (0-0.5) ng/ml Urine Color Urine Appearance (Clear) Urine pH (4.5-7.5) Ur Specific [place] (1.000-1.030) Urine Protein (Negative) Urine Glucose (UA) (Negative) Urine Ketones (Negative) Urine Blood (Negative) Urine Nitrite (Negative) Urine Bilirubin (Negative) Urine Urobilinogen (Negative) Ur Leukocyte Esterase (Negative) Stl C. cayetanensis PCR (NotDetected) Stool Rotavirus A PCR (NotDetected) Stl Adenov F 40/41 PCR (NotDetected) Stool Astrovirus (PCR) (NotDetected) Stool Campylobacter PCR (NotDetected) Stl C.difficile Tox A&B (Negative) Stl C. diff Tox A/B PCR (NotDetected) Stool Cryptosporidium PCR (NotDetected) Stl E.coli Shiga Tox PCR (NotDetected) Stl Enterotoxigenic E PCR (NotDetected) Stool EPEC (PCR) (NotDetected) Stool EAEC (PCR) (NotDetected) Stl E. histolytica PCR (NotDetected) Stool Giardia Lamblia PCR (NotDetected) Stool Salmonella PCR (NotDetected) Stool Sapovirus (PCR) (NotDetected) Stl P. shigelloides PCR (NotDetected) Stl Shigella/EIEC PCR (NotDetected) St Y.enterocolitica PCR (NotDetected) Stool Vibrio (PCR) (NotDetected) Stl Vibrio cholerae PCR (NotDetected) Stl Norovirus GI/GII PCR (NotDetected) Norovirus RNA (PCR) SARS-CoV-2, RNA, NAAT (NEGATIVE) Blood Type Antibody Screen Crossmatch Transfusion React Date Transfusion React Time Tx React Symptoms Reaction Clerical Check Lab Clerical Err Check React Component Return Volume Returned Pre-Trans Blood Type Pre-Trans Vis Hemolysis Pre-Trans KAY (Negative) Pre-Trans KAY IgG (Negative) Pre-Trans KAY Poly (Negative) Pre-Trans KAY C3b, C3d (Negative) Post-Trans Blood Type Post-Tx Visible Hemolys Post-Trans KAY (Negatuve) Post-Trans KAY IgG (Negative) Post-Trans KAY Poly (Negative) Post-Trans KAY C3b, C3d (Negative) Post-Trans Ur Hemoglobin Reaction Path Interpret Transfusion Serv Com 07/22/21 07/22/21 07/21/21 Range/Units 03:50 00:10 21:35 WBC (4.8-10.8) K/uL RBC (4.7-6.1) M/uL Hgb 7.8 L (14.0-18.0) g/dL Hct 23.9 L (42-52) % MCV (80-100) fL MCH (25-34) pg MCHC (32-36) g/dL RDW Std Deviation (36.4-46.3) fL RDW Coeff of Ruth (11.5-14.5) % Plt Count (130-400) K/uL MPV (7.4-10.4) fL Immature Gran % (Auto) % Neut % (Auto) % Lymph % (Auto) % [place] % (Auto) % Eos % (Auto) % Baso % (Auto) % Neut # (Auto) (1.4-6.5) K/uL Lymph # (Auto) (1.2-3.4) K/uL [place] # (Auto) (0.11-0.59) K/uL Eos # (Auto) (0-0.5) K/uL Baso # (Auto) (0-0.2) K/uL Immature Gran # (Auto) (0.00-0.02) K/uL PT (9.0-12.0) Seconds INR (0.9-1.1) APTT (21.0-31.0) Seconds PTT Ratio Sodium (136-145) mmol/L Potassium (3.5-5.1) mmol/L Chloride (98-107) mmol/L Carbon Dioxide (21-32) mmol/L Anion Gap (3-11) BUN (6-23) mg/dl Creatinine (0.6-1.4) mg/dl Est Cr Clr Drug Dosing ml/min Est GFR ( Amer) ml/min Est GFR (Non-Af Amer) ml/min BUN/Creatinine Ratio (10-20) Glucose (70-99(Fasting)) mg/dl POC Glucose 167 H (70-99) mg/dl Estimat Average Glucose mg/dl Hemoglobin A1c (4.5-5.6) % Lactate (0.4-2.0) mmol/L Calcium (8.5-10.1) mg/dl Magnesium (1.7-2.4) mg/dl Total Bilirubin (0.2-1.0) mg/dl AST (13-39) U/L ALT (7-52) U/L Alkaline Phosphatase (34-104) U/L Troponin I (0-0.04) ng/ml B-Natriuretic Peptide (0-100) pg/ml Total Protein (6.0-8.3) gm/dl Albumin (3.4-5.0) gm/dl Globulin (2.5-4.0) gm/dl Albumin/Globulin Ratio (0.9-2) Procalcitonin (0-0.5) ng/ml Urine Color Urine Appearance (Clear) Urine pH (4.5-7.5) Ur Specific [place] (1.000-1.030) Urine Protein (Negative) Urine Glucose (UA) (Negative) Urine Ketones (Negative) Urine Blood Negative (Negative) Urine Nitrite (Negative) Urine Bilirubin (Negative) Urine Urobilinogen (Negative) Ur Leukocyte Esterase (Negative) Stl C. cayetanensis PCR (NotDetected) Stool Rotavirus A PCR (NotDetected) Stl Adenov F 40/41 PCR (NotDetected) Stool Astrovirus (PCR) (NotDetected) Stool Campylobacter PCR (NotDetected) Stl C.difficile Tox A&B (Negative) Stl C. diff Tox A/B PCR (NotDetected) Stool Cryptosporidium PCR (NotDetected) Stl E.coli Shiga Tox PCR (NotDetected) Stl Enterotoxigenic E PCR (NotDetected) Stool EPEC (PCR) (NotDetected) Stool EAEC (PCR) (NotDetected) Stl E. histolytica PCR (NotDetected) Stool Giardia Lamblia PCR (NotDetected) Stool Salmonella PCR (NotDetected) Stool Sapovirus (PCR) (NotDetected) Stl P. shigelloides PCR (NotDetected) Stl Shigella/EIEC PCR (NotDetected) St Y.enterocolitica PCR (NotDetected) Stool Vibrio (PCR) (NotDetected) Stl Vibrio cholerae PCR (NotDetected) Stl Norovirus GI/GII PCR (NotDetected) Norovirus RNA (PCR) SARS-CoV-2, RNA, NAAT (NEGATIVE) Blood Type Antibody Screen Crossmatch Transfusion React Date Transfusion React Time Tx React Symptoms Reaction Clerical Check Lab Clerical Err Check React Component Return Volume Returned Pre-Trans Blood Type Pre-Trans Vis Hemolysis Pre-Trans KAY (Negative) Pre-Trans KAY IgG (Negative) Pre-Trans KAY Poly (Negative) Pre-Trans KAY C3b, C3d (Negative) Post-Trans Blood Type Post-Tx Visible Hemolys Post-Trans KAY (Negatuve) Post-Trans KAY IgG (Negative) Post-Trans KAY Poly (Negative) Post-Trans KAY C3b, C3d (Negative) Post-Trans Ur Hemoglobin Reaction Path Interpret Transfusion Serv Com 07/21/21 07/21/21 07/21/21 Range/Units 20:30 20:30 20:05 WBC (4.8-10.8) K/uL RBC (4.7-6.1) M/uL Hgb (14.0-18.0) g/dL Hct (42-52) % MCV (80-100) fL MCH (25-34) pg MCHC (32-36) g/dL RDW Std Deviation (36.4-46.3) fL RDW Coeff of Ruth (11.5-14.5) % Plt Count (130-400) K/uL MPV (7.4-10.4) fL Immature Gran % (Auto) % Neut % (Auto) % Lymph % (Auto) % [place] % (Auto) % Eos % (Auto) % Baso % (Auto) % Neut # (Auto) (1.4-6.5) K/uL Lymph # (Auto) (1.2-3.4) K/uL [place] # (Auto) (0.11-0.59) K/uL Eos # (Auto) (0-0.5) K/uL Baso # (Auto) (0-0.2) K/uL Immature Gran # (Auto) (0.00-0.02) K/uL PT (9.0-12.0) Seconds INR (0.9-1.1) APTT (21.0-31.0) Seconds PTT Ratio Sodium (136-145) mmol/L Potassium (3.5-5.1) mmol/L Chloride (98-107) mmol/L Carbon Dioxide (21-32) mmol/L Anion Gap (3-11) BUN (6-23) mg/dl Creatinine (0.6-1.4) mg/dl Est Cr Clr Drug Dosing ml/min Est GFR ( Amer) ml/min Est GFR (Non-Af Amer) ml/min BUN/Creatinine Ratio (10-20) Glucose (70-99(Fasting)) mg/dl POC Glucose (70-99) mg/dl Estimat Average Glucose mg/dl Hemoglobin A1c (4.5-5.6) % Lactate (0.4-2.0) mmol/L Calcium (8.5-10.1) mg/dl Magnesium (1.7-2.4) mg/dl Total Bilirubin (0.2-1.0) mg/dl AST (13-39) U/L ALT (7-52) U/L Alkaline Phosphatase (34-104) U/L Troponin I (0-0.04) ng/ml B-Natriuretic Peptide (0-100) pg/ml Total Protein (6.0-8.3) gm/dl Albumin (3.4-5.0) gm/dl Globulin (2.5-4.0) gm/dl Albumin/Globulin Ratio (0.9-2) Procalcitonin (0-0.5) ng/ml Urine Color Urine Appearance (Clear) Urine pH (4.5-7.5) Ur Specific [place] (1.000-1.030) Urine Protein (Negative) Urine Glucose (UA) (Negative) Urine Ketones (Negative) Urine Blood (Negative) Urine Nitrite (Negative) Urine Bilirubin (Negative) Urine Urobilinogen (Negative) Ur Leukocyte Esterase (Negative) Stl C. cayetanensis PCR Not Detected (NotDetected) Stool Rotavirus A PCR Not Detected (NotDetected) Stl Adenov F 40/41 PCR Not Detected (NotDetected) Stool Astrovirus (PCR) Not Detected (NotDetected) Stool Campylobacter PCR Not Detected (NotDetected) Stl C.difficile Tox A&B Positive Cdiff Toxin A* (Negative) Stl C. diff Tox A/B PCR C.diff Gene Detected A (NotDetected) Stool Cryptosporidium PCR Not Detected (NotDetected) Stl E.coli Shiga Tox PCR Not Detected (NotDetected) Stl Enterotoxigenic E PCR Not Detected (NotDetected) Stool EPEC (PCR) Not Detected (NotDetected) Stool EAEC (PCR) Not Detected (NotDetected) Stl E. histolytica PCR Not Detected (NotDetected) Stool Giardia Lamblia PCR Not Detected (NotDetected) Stool Salmonella PCR Not Detected (NotDetected) Stool Sapovirus (PCR) Not Detected (NotDetected) Stl P. shigelloides PCR Not Detected (NotDetected) Stl Shigella/EIEC PCR Not Detected (NotDetected) St Y.enterocolitica PCR Not Detected (NotDetected) Stool Vibrio (PCR) Not Detected (NotDetected) Stl Vibrio cholerae PCR Not Detected (NotDetected) Stl Norovirus GI/GII PCR Not Detected (NotDetected) Norovirus RNA (PCR) Cancelled SARS-CoV-2, RNA, NAAT NEGATIVE (NEGATIVE) Blood Type Antibody Screen Crossmatch Transfusion React Date Transfusion React Time Tx React Symptoms Reaction Clerical Check Lab Clerical Err Check React Component Return Volume Returned Pre-Trans Blood Type Pre-Trans Vis Hemolysis Pre-Trans AKY (Negative) Pre-Trans KAY IgG (Negative) Pre-Trans KAY Poly (Negative) Pre-Trans KAY C3b, C3d (Negative) Post-Trans Blood Type Post-Tx Visible Hemolys Post-Trans KAY (Negatuve) Post-Trans KAY IgG (Negative) Post-Trans KAY Poly (Negative) Post-Trans KAY C3b, C3d (Negative) Post-Trans Ur Hemoglobin Reaction Path Interpret Transfusion Serv Com 07/21/21 07/21/21 07/21/21 Range/Units 18:52 18:30 18:30 WBC (4.8-10.8) K/uL RBC (4.7-6.1) M/uL Hgb (14.0-18.0) g/dL Hct (42-52) % MCV (80-100) fL MCH (25-34) pg MCHC (32-36) g/dL RDW Std Deviation (36.4-46.3) fL RDW Coeff of Ruth (11.5-14.5) % Plt Count (130-400) K/uL MPV (7.4-10.4) fL Immature Gran % (Auto) % Neut % (Auto) % Lymph % (Auto) % [place] % (Auto) % Eos % (Auto) % Baso % (Auto) % Neut # (Auto) (1.4-6.5) K/uL Lymph # (Auto) (1.2-3.4) K/uL [place] # (Auto) (0.11-0.59) K/uL Eos # (Auto) (0-0.5) K/uL Baso # (Auto) (0-0.2) K/uL Immature Gran # (Auto) (0.00-0.02) K/uL PT (9.0-12.0) Seconds INR (0.9-1.1) APTT (21.0-31.0) Seconds PTT Ratio Sodium (136-145) mmol/L Potassium (3.5-5.1) mmol/L Chloride (98-107) mmol/L Carbon Dioxide (21-32) mmol/L Anion Gap (3-11) BUN (6-23) mg/dl Creatinine (0.6-1.4) mg/dl Est Cr Clr Drug Dosing ml/min Est GFR ( Amer) ml/min Est GFR (Non-Af Amer) ml/min BUN/Creatinine Ratio (10-20) Glucose (70-99(Fasting)) mg/dl POC Glucose (70-99) mg/dl Estimat Average Glucose mg/dl Hemoglobin A1c (4.5-5.6) % Lactate (0.4-2.0) mmol/L Calcium (8.5-10.1) mg/dl Magnesium (1.7-2.4) mg/dl Total Bilirubin (0.2-1.0) mg/dl AST (13-39) U/L ALT (7-52) U/L Alkaline Phosphatase (34-104) U/L Troponin I (0-0.04) ng/ml B-Natriuretic Peptide 558 H (0-100) pg/ml Total Protein (6.0-8.3) gm/dl Albumin (3.4-5.0) gm/dl Globulin (2.5-4.0) gm/dl Albumin/Globulin Ratio (0.9-2) Procalcitonin 0.07 (0-0.5) ng/ml Urine Color Urine Appearance (Clear) Urine pH (4.5-7.5) Ur Specific [place] (1.000-1.030) Urine Protein (Negative) Urine Glucose (UA) (Negative) Urine Ketones (Negative) Urine Blood (Negative) Urine Nitrite (Negative) Urine Bilirubin (Negative) Urine Urobilinogen (Negative) Ur Leukocyte Esterase (Negative) Stl C. cayetanensis PCR (NotDetected) Stool Rotavirus A PCR (NotDetected) Stl Adenov F 40/41 PCR (NotDetected) Stool Astrovirus (PCR) (NotDetected) Stool Campylobacter PCR (NotDetected) Stl C.difficile Tox A&B (Negative) Stl C. diff Tox A/B PCR (NotDetected) Stool Cryptosporidium PCR (NotDetected) Stl E.coli Shiga Tox PCR (NotDetected) Stl Enterotoxigenic E PCR (NotDetected) Stool EPEC (PCR) (NotDetected) Stool EAEC (PCR) (NotDetected) Stl E. histolytica PCR (NotDetected) Stool Giardia Lamblia PCR (NotDetected) Stool Salmonella PCR (NotDetected) Stool Sapovirus (PCR) (NotDetected) Stl P. shigelloides PCR (NotDetected) Stl Shigella/EIEC PCR (NotDetected) St Y.enterocolitica PCR (NotDetected) Stool Vibrio (PCR) (NotDetected) Stl Vibrio cholerae PCR (NotDetected) Stl Norovirus GI/GII PCR (NotDetected) Norovirus RNA (PCR) SARS-CoV-2, RNA, NAAT (NEGATIVE) Blood Type A Negative Antibody Screen NEGATIVE Crossmatch See Detail Transfusion React Date Transfusion React Time Tx React Symptoms Reaction Clerical Check Lab Clerical Err Check React Component Return Volume Returned Pre-Trans Blood Type Pre-Trans Vis Hemolysis Pre-Trans KAY (Negative) Pre-Trans KAY IgG (Negative) Pre-Trans KAY Poly (Negative) Pre-Trans KAY C3b, C3d (Negative) Post-Trans Blood Type Post-Tx Visible Hemolys Post-Trans KAY (Negatuve) Post-Trans KAY IgG (Negative) Post-Trans KAY Poly (Negative) Post-Trans KAY C3b, C3d (Negative) Post-Trans Ur Hemoglobin Reaction Path Interpret Transfusion Serv Com 07/21/21 07/21/21 07/21/21 Range/Units 18:30 18:30 18:30 WBC (4.8-10.8) K/uL RBC (4.7-6.1) M/uL Hgb (14.0-18.0) g/dL Hct (42-52) % MCV (80-100) fL MCH (25-34) pg MCHC (32-36) g/dL RDW Std Deviation (36.4-46.3) fL RDW Coeff of Ruth (11.5-14.5) % Plt Count (130-400) K/uL MPV (7.4-10.4) fL Immature Gran % (Auto) % Neut % (Auto) % Lymph % (Auto) % [place] % (Auto) % Eos % (Auto) % Baso % (Auto) % Neut # (Auto) (1.4-6.5) K/uL Lymph # (Auto) (1.2-3.4) K/uL [place] # (Auto) (0.11-0.59) K/uL Eos # (Auto) (0-0.5) K/uL Baso # (Auto) (0-0.2) K/uL Immature Gran # (Auto) (0.00-0.02) K/uL PT 11.5 (9.0-12.0) Seconds INR 1.1 (0.9-1.1) APTT 27.7 (21.0-31.0) Seconds PTT Ratio 1.0 Sodium 135 L (136-145) mmol/L Potassium 4.2 (3.5-5.1) mmol/L Chloride 102 (98-107) mmol/L Carbon Dioxide 26 (21-32) mmol/L Anion Gap 7 (3-11) BUN 14 (6-23) mg/dl Creatinine 1.11 (0.6-1.4) mg/dl Est Cr Clr Drug Dosing 42.2 ml/min Est GFR ( Amer) 70.8 ml/min Est GFR (Non-Af Amer) 61.1 ml/min BUN/Creatinine Ratio 12.6 (10-20) Glucose 111 H (70-99(Fasting)) mg/dl POC Glucose (70-99) mg/dl Estimat Average Glucose mg/dl Hemoglobin A1c (4.5-5.6) % Lactate 1.4 (0.4-2.0) mmol/L Calcium 9.0 (8.5-10.1) mg/dl Magnesium 1.6 L (1.7-2.4) mg/dl Total Bilirubin 0.5 (0.2-1.0) mg/dl AST 12 L (13-39) U/L ALT 9 (7-52) U/L Alkaline Phosphatase 72 (34-104) U/L Troponin I 0.04 (0-0.04) ng/ml B-Natriuretic Peptide (0-100) pg/ml Total Protein 6.2 (6.0-8.3) gm/dl Albumin 3.4 (3.4-5.0) gm/dl Globulin 2.8 (2.5-4.0) gm/dl Albumin/Globulin Ratio 1.2 (0.9-2) Procalcitonin (0-0.5) ng/ml Urine Color Urine Appearance (Clear) Urine pH (4.5-7.5) Ur Specific [place] (1.000-1.030) Urine Protein (Negative) Urine Glucose (UA) (Negative) Urine Ketones (Negative) Urine Blood (Negative) Urine Nitrite (Negative) Urine Bilirubin (Negative) Urine Urobilinogen (Negative) Ur Leukocyte Esterase (Negative) Stl C. cayetanensis PCR (NotDetected) Stool Rotavirus A PCR (NotDetected) Stl Adenov F 40/41 PCR (NotDetected) Stool Astrovirus (PCR) (NotDetected) Stool Campylobacter PCR (NotDetected) Stl C.difficile Tox A&B (Negative) Stl C. diff Tox A/B PCR (NotDetected) Stool Cryptosporidium PCR (NotDetected) Stl E.coli Shiga Tox PCR (NotDetected) Stl Enterotoxigenic E PCR (NotDetected) Stool EPEC (PCR) (NotDetected) Stool EAEC (PCR) (NotDetected) Stl E. histolytica PCR (NotDetected) Stool Giardia Lamblia PCR (NotDetected) Stool Salmonella PCR (NotDetected) Stool Sapovirus (PCR) (NotDetected) Stl P. shigelloides PCR (NotDetected) Stl Shigella/EIEC PCR (NotDetected) St Y.enterocolitica PCR (NotDetected) Stool Vibrio (PCR) (NotDetected) Stl Vibrio cholerae PCR (NotDetected) Stl Norovirus GI/GII PCR (NotDetected) Norovirus RNA (PCR) SARS-CoV-2, RNA, NAAT (NEGATIVE) Blood Type Antibody Screen Crossmatch Transfusion React Date Transfusion React Time Tx React Symptoms Reaction Clerical Check Lab Clerical Err Check React Component Return Volume Returned Pre-Trans Blood Type Pre-Trans Vis Hemolysis Pre-Trans KAY (Negative) Pre-Trans KAY IgG (Negative) Pre-Trans KAY Poly (Negative) Pre-Trans KAY C3b, C3d (Negative) Post-Trans Blood Type Post-Tx Visible Hemolys Post-Trans KAY (Negatuve) Post-Trans KAY IgG (Negative) Post-Trans KAY Poly (Negative) Post-Trans KAY C3b, C3d (Negative) Post-Trans Ur Hemoglobin Reaction Path Interpret Transfusion Serv Com 07/21/21 Range/Units 18:30 WBC 18.81 H (4.8-10.8) K/uL RBC 3.37 L (4.7-6.1) M/uL Hgb 8.7 L (14.0-18.0) g/dL Hct 27.6 L (42-52) % MCV 81.9 (80-100) fL MCH 25.8 (25-34) pg MCHC 31.5 L (32-36) g/dL RDW Std Deviation 51.0 H (36.4-46.3) fL RDW Coeff of Ruth 16.9 H (11.5-14.5) % Plt Count 309 (130-400) K/uL MPV 8.9 (7.4-10.4) fL Immature Gran % (Auto) 0.3 % Neut % (Auto) 81.8 % Lymph % (Auto) 8.5 % [place] % (Auto) 8.5 % Eos % (Auto) 0.7 % Baso % (Auto) 0.2 % Neut # (Auto) 15.40 H (1.4-6.5) K/uL Lymph # (Auto) 1.59 (1.2-3.4) K/uL [place] # (Auto) 1.60 H (0.11-0.59) K/uL Eos # (Auto) 0.13 (0-0.5) K/uL Baso # (Auto) 0.03 (0-0.2) K/uL Immature Gran # (Auto) 0.06 H (0.00-0.02) K/uL PT (9.0-12.0) Seconds INR (0.9-1.1) APTT (21.0-31.0) Seconds PTT Ratio Sodium (136-145) mmol/L Potassium (3.5-5.1) mmol/L Chloride (98-107) mmol/L Carbon Dioxide (21-32) mmol/L Anion Gap (3-11) BUN (6-23) mg/dl Creatinine (0.6-1.4) mg/dl Est Cr Clr Drug Dosing ml/min Est GFR ( Amer) ml/min Est GFR (Non-Af Amer) ml/min BUN/Creatinine Ratio (10-20) Glucose (70-99(Fasting)) mg/dl POC Glucose (70-99) mg/dl Estimat Average Glucose mg/dl Hemoglobin A1c (4.5-5.6) % Lactate (0.4-2.0) mmol/L Calcium (8.5-10.1) mg/dl Magnesium (1.7-2.4) mg/dl Total Bilirubin (0.2-1.0) mg/dl AST (13-39) U/L ALT (7-52) U/L Alkaline Phosphatase (34-104) U/L Troponin I (0-0.04) ng/ml B-Natriuretic Peptide (0-100) pg/ml Total Protein (6.0-8.3) gm/dl Albumin (3.4-5.0) gm/dl Globulin (2.5-4.0) gm/dl Albumin/Globulin Ratio (0.9-2) Procalcitonin (0-0.5) ng/ml Urine Color Urine Appearance (Clear) Urine pH (4.5-7.5) Ur Specific [place] (1.000-1.030) Urine Protein (Negative) Urine Glucose (UA) (Negative) Urine Ketones (Negative) Urine Blood (Negative) Urine Nitrite (Negative) Urine Bilirubin (Negative) Urine Urobilinogen (Negative) Ur Leukocyte Esterase (Negative) Stl C. cayetanensis PCR (NotDetected) Stool Rotavirus A PCR (NotDetected) Stl Adenov F 40/41 PCR (NotDetected) Stool Astrovirus (PCR) (NotDetected) Stool Campylobacter PCR (NotDetected) Stl C.difficile Tox A&B (Negative) Stl C. diff Tox A/B PCR (NotDetected) Stool Cryptosporidium PCR (NotDetected) Stl E.coli Shiga Tox PCR (NotDetected) Stl Enterotoxigenic E PCR (NotDetected) Stool EPEC (PCR) (NotDetected) Stool EAEC (PCR) (NotDetected) Stl E. histolytica PCR (NotDetected) Stool Giardia Lamblia PCR (NotDetected) Stool Salmonella PCR (NotDetected) Stool Sapovirus (PCR) (NotDetected) Stl P. shigelloides PCR (NotDetected) Stl Shigella/EIEC PCR (NotDetected) St Y.enterocolitica PCR (NotDetected) Stool Vibrio (PCR) (NotDetected) Stl Vibrio cholerae PCR (NotDetected) Stl Norovirus GI/GII PCR (NotDetected) Norovirus RNA (PCR) SARS-CoV-2, RNA, NAAT (NEGATIVE) Blood Type Antibody Screen Crossmatch Transfusion React Date Transfusion React Time Tx React Symptoms Reaction Clerical Check Lab Clerical Err Check React Component Return Volume Returned Pre-Trans Blood Type Pre-Trans Vis Hemolysis Pre-Trans KAY (Negative) Pre-Trans KAY IgG (Negative) Pre-Trans KAY Poly (Negative) Pre-Trans KAY C3b, C3d (Negative) Post-Trans Blood Type Post-Tx Visible Hemolys Post-Trans KAY (Negatuve) Post-Trans KAY IgG (Negative) Post-Trans KAY Poly (Negative) Post-Trans KAY C3b, C3d (Negative) Post-Trans Ur Hemoglobin Reaction Path Interpret Transfusion Serv Com Diagnostic Findings CXR: FINDINGS: No pneumothorax. Trace bilateral pleural effusions. The heart remains enlarged. Is left-sided dual-chamber pacemaker and cardiac valve stent again noted. Cervical spinal fusion hardware persist. Mild interstitial pulmonary edema has slightly improved. There are patchy left basilar densities. IMPRESSION: 1. Slight improvement in the mild interstitial pulmonary edema and trace bilateral pleural effusions. 2. Patchy left basilar densities are nonspecific but favor atelectasis.
[2021-07-22] MEDS ORDERED: MULTIVITAMIN TAB PO SCH (09:00)
[2021-07-22] MEDS ORDERED: THIAMINE HCL 100 MG TAB PO SCH (09:00)
[2021-07-22] MEDS ORDERED: FOLIC ACID 1 MG TAB PO SCH (09:00)
[2021-07-22] MEDS: FINASTERIDE 5 MG TAB PO SCH (09:03)
[2021-07-22] MEDS: amLODIPine BESYLATE 5 MG TAB PO SCH (09:04)
[2021-07-22] MEDS: AMIODARONE 200 MG TAB PO SCH (09:06)
[2021-07-22] MEDS: EZETIMIBE 10 MG TABLET PO SCH (09:06)
[2021-07-22] MEDS: POTASSIUM CHLORIDE 10 MEQ TABCR PO SCH ×2 (09:07→18:06)
[2021-07-22] MEDS: ATORVASTATIN 20 MG TAB PO SCH (09:07)
[2021-07-22] MEDS: SILDENAFIL CITRATE 20 MG TABLET PO SCH ×2 (09:08→20:54)
[2021-07-22] MEDS: POTASSIUM CHLORIDE / WTR 10 MEQ/100 ML PLCT IV SCH ×2 (09:45→10:50)
[2021-07-22] MEDS ORDERED: VANCOMYCIN CONSULT ACTIVE PRN (12:24)
[2021-07-22 12:29] LABS: Hematocrit (blood only) 25.9 % (42-52); Hemoglobin 8.4 g/dL (14.0-18.0)
[2021-07-22] MEDS ORDERED: VANCOMYCIN HCL 1,000 MG in SODIUM CHLORIDE 0.9% 250 ML IV SCH (12:30)
[2021-07-22] MEDS: RASPBERRY SYRUP 5 ML UDP PO SCH ×2 (13:25→18:07)
[2021-07-22] MEDS: VANCOMYCIN HCL 125 MG/2.5ML SOLN PO SCH ×2 (13:25→18:07)
--- NOTE | 2021-07-22 13:32 | Pharmacy Report ---
Pharmacy Vanc AUC Short Note - Date of Service July 22, 2021 - Assessment & Plan Assessment 81 year old M receiving empiric vancomycin for treatment of bacteremia (gram- positive cocci in chains x 2 blood cultures) with currently unknown source. Of note, patient recently hospitalized and treated for E. faecalis bacteremia. Patient also with Cdif diarrhea, being treated with PO vancomycin. Day # 1 of antimicrobial therapy. Plan Vancomycin * Loading dose of 1500 mg IV x 1 given last evening at 2141 * AUC/ALTAGRACIA is the preferred PK/PD target for vancomycin * AUC guided dosing is effective and associated with decreased risk of nephrot oxicity compared to traditional trough targets * Ordered dose of 1000 mg IV q18h is predicted to achieve target AUC/ALTAGRACIA of 400- 600 mg/L.hr and may be associated with a 15 % risk of nephrotoxicity * Trough level to be obtained once at steady-state Pharmacy will continue to follow and will adjust dose/frequency as necessary. Thank you.
[2021-07-22] MEDS: VANCOMYCIN HCL 1,000 MG in SODIUM CHLORIDE 0.9% 250 ML IV SCH (13:47)
--- NOTE | 2021-07-22 16:21 | Electrocardiogram Report ---
Test Reason : Blood Pressure : / mmHG Vent. Rate : 079 BPM Atrial Rate : 079 BPM P-R Int : 146 ms QRS Dur : 140 ms QT Int : 464 ms P-R-T Axes : 018 134 048 degrees QTc Int : 532 ms Atrial-sensed ventricular-paced rhythm Abnormal ECG When compared with ECG of 27-JUN-2021 06:15, Vent. rate has increased BY 17 BPM Confirmed by Eris Giron ([id number]) on 07/22/2021 4:20:58 PM Referred By: Henry Campbell Confirmed By:Eris Giron
--- NOTE | 2021-07-22 16:54 | Hospitalist Progress Note ---
Date of Service July 22, 2021 Assessment & Plan (1) C. difficile diarrhea: Plan: Present on admission with weakness, diarrhea and dark stools Stool positive for C-diff WBC elevated at 18K -> 17K Gastro on board - No role for endoscopy unless pt develops overt GIB or drop in HGB Starting on PO vancomycin 125mg QID IV PPI discontinued Continue monitor electrolytes Bacteremia Blood cx grew Gram positive cocci in chain Pt was treating with IV vanco last month for 2 weeks for bacteremia Will start on IV Vancomycin Pt has a prosthetic valve and echo last month did not mention any vegatation Will consult ID Repeat blood cx in am Hypokalemia Mostly related to diarrhea K 3.1 today K replaced Continue monitor BMP Generalized weakness Mostly due to acute illness Continue PT/OT eval Fall precaution CAD (coronary atherosclerotic disease): Denies any chest pain no evidence of ACS. Continue beta javier and statin Asa on hold for possible GI bleed PVD (peripheral vascular disease): H/o stents to bilateral lower extremities. Cont medical therapy. Anemia: h/o hematuria with cystoscopy with cystourethral dilation, clot evacuation and extensive fulguration by Dr. Turcios in Feb 2021. Hemoglobin 8.4 Continue monitor CBC PAF (paroxysmal atrial fibrillation): Rate controlled on amiodarone Stable Pulmonary hypertension: Continue Revatio Stable DVT px SCD (for possible GI bleed ) Admission and Anticipated Discharge Date Admission Date: July 21, 2021 Subjective Pt was seen and examined for follow of diarrhea Sitting in chair with no acute distress Pt said that diarrhea is slowing down He said that he feels ok Denies any chest pain, palpitation, dizziness and SOB Review of Systems Review of Systems: All systems reviewed & are unremarkable except as noted in Subjective Physical Exam Physical Exam: General- No acute distress Head- atraumatic Eyes- PERRL, EOMI, ENT- oropharynx clear Neck- supple, no JVD Lungs- clear to auscultation Heart- regular rhythm; no murmur Abdomen- normal bowel sounds, soft, nontender Extremities- no calf tenderness Neuro- alert, oriented x 3; PERRL, EOMI; no facial palsy; no dysarthria Skin- warm & dry Results & Data Results & Data ([facility]) Vital Signs (Past 12 Hours) Vital Signs Temp Pulse Resp BP Pulse Ox 07/22/21 15:12 36.8 C 65 20 116/54 L 90 07/22/21 11:55 36.6 C 64 20 112/45 L 93 07/22/21 08:22 36.4 C L 70 18 113/41 L 95 07/22/21 04:55 37.2 C
[2021-07-22] MEDS ORDERED: Nursing to Pharmacy Communication SCH (19:30)
[2021-07-22] MEDS: GABAPENTIN 400 MG CAP PO SCH (20:40)
[2021-07-22] MEDS: TERAZOSIN HCL 5 MG CAP PO SCH (20:53)
[2021-07-23] MEDS: RASPBERRY SYRUP 5 ML UDP PO SCH ×5 (00:01→23:53)
[2021-07-23] MEDS: VANCOMYCIN HCL 125 MG/2.5ML SOLN PO SCH ×5 (00:01→23:53)
[2021-07-23] MEDS: VANCOMYCIN HCL 1,000 MG in SODIUM CHLORIDE 0.9% 250 ML IV SCH ×2 (06:17→23:53)
[2021-07-23 07:13] LABS: Hematocrit (blood only) 24.9 % (42-52); Mean Corpuscular Hemoglobin 26.3 pg (25-34); Mean Corpuscular Hgb Conc 32.1 g/dL (32-36); Mean Corpuscular Volume 81.9 fL (80-100); Mean Platelet Volume 8.8 fL (7.4-10.4); Platelet Count 251 K/uL (130-400); RDW Coefficient of Variation 16.9 % (11.5-14.5); RDW Standard Deviation 51.1 fL (36.4-46.3); Red Blood Count 3.04 M/uL (4.7-6.1); White Blood Count 15.72 K/uL (4.8-10.8)
[2021-07-23 07:32] LABS: BUN Creatinine Ratio 13.2 (10-20); Calcium 7.5 mg/dl (8.5-10.1); Creatinine Clr Calc Pharmacy 44.2 ml/min; Est GFR (African American) 74.9 ml/min; Est GFR (Non-African American) 64.6 ml/min; Potassium 3.3 mmol/L (3.5-5.1)
[2021-07-23] MEDS ORDERED: POTASSIUM CHLORIDE 10 MEQ TABCR PO STA (08:44)
[2021-07-23] MEDS: INSULIN ASPART PER UNIT SC SCH ×4 (09:15→21:30)
[2021-07-23] MEDS: POTASSIUM CHLORIDE 10 MEQ TABCR PO SCH ×2 (09:30→18:05)
[2021-07-23] MEDS: ATORVASTATIN 20 MG TAB PO SCH (10:15)
[2021-07-23] MEDS: AMIODARONE 200 MG TAB PO SCH (10:15)
[2021-07-23] MEDS: SILDENAFIL CITRATE 20 MG TABLET PO SCH ×2 (10:15→21:23)
[2021-07-23] MEDS: FINASTERIDE 5 MG TAB PO SCH (10:16)
[2021-07-23] MEDS: levETIRAcetam 500 MG TAB PO SCH ×2 (10:17→21:22)
[2021-07-23] MEDS: EZETIMIBE 10 MG TABLET PO SCH (10:18)
[2021-07-23] MEDS: amLODIPine BESYLATE 5 MG TAB PO SCH (10:18)
[2021-07-23] MEDS: METOPROLOL SUCC 25MG EXT REL TAB PO SCH ×2 (10:18→21:24)
--- NOTE | 2021-07-23 17:30 | Hospitalist Progress Note ---
Date of Service July 23, 2021 Assessment & Plan (1) C. difficile diarrhea: Plan: Present on admission with weakness, diarrhea and dark stools Stool positive for C-diff WBC elevated at 18K -> 17K ->15 Gastro on board - No role for endoscopy unless pt develops overt GIB or drop in HGB Continue PO vancomycin 125mg QID IV PPI discontinued Continue monitor electrolytes Bacteremia Blood cx grew Gram positive cocci in chain Pt was treating with IV vanco last month for 2 weeks for bacteremia Continue on IV Vancomycin Pt has a prosthetic valve and echo last month did not mention any vegetation Will repeat ECHO to r/o vegetation Will talk to cardio for possible IRENA if echo negative ID consulted- Pending repeat blood cx pending Hypokalemia Mostly related to diarrhea K 3.3 today K replaced Continue monitor BMP Generalized weakness Mostly due to acute illness Continue PT/OT eval Fall precaution CAD (coronary atherosclerotic disease): Denies any chest pain no evidence of ACS. Continue beta javier and statin Asa on hold for possible GI bleed PVD (peripheral vascular disease): H/o stents to bilateral lower extremities. Cont medical therapy. Anemia: h/o hematuria with cystoscopy with cystourethral dilation, clot evacuation and extensive fulguration by Dr. Turcios in Feb 2021. Hemoglobin 8.0 Continue monitor CBC PAF (paroxysmal atrial fibrillation): Rate controlled on amiodarone Stable Pulmonary hypertension: Continue Revatio Stable DVT px SCD (for possible GI bleed ) Admission and Anticipated Discharge Date Admission Date: July 21, 2021 Subjective Pt was seen and examined for follow of diarrhea Sitting in chair with no acute distress His diarrhea is slowing down He said that he feels ok Spoke to son Jayson and provided with update Denies any chest pain, palpitation, dizziness and SOB Review of Systems Review of Systems: All systems reviewed & are unremarkable except as noted in Subjective Physical Exam Physical Exam: General- No acute distress Head- atraumatic Eyes- PERRL, EOMI, ENT- oropharynx clear Neck- supple, no JVD Lungs- clear to auscultation Heart- regular rhythm; no murmur Abdomen- normal bowel sounds, soft, nontender Extremities- no calf tenderness Neuro- alert, oriented x 3; PERRL, EOMI; no facial palsy; no dysarthria Skin- warm & dry Results & Data Results & Data ([facility]) Vital Signs (Past 12 Hours) Vital Signs Temp Pulse Resp BP Pulse Ox 07/23/21 15:08 36.9 C 69 18 112/43 L 93 07/23/21 12:30 36.6 C 64 17 117/37 L 93 07/23/21 07:32 36.7 C 68 15 114/51 L 92
[2021-07-23] MEDS: GABAPENTIN 400 MG CAP PO SCH (21:21)
[2021-07-23] MEDS: TERAZOSIN HCL 5 MG CAP PO SCH (21:23)
[2021-07-24] MEDS: VANCOMYCIN HCL 125 MG/2.5ML SOLN PO SCH ×4 (05:43→23:54)
[2021-07-24] MEDS: RASPBERRY SYRUP 5 ML UDP PO SCH ×4 (05:43→23:53)
[2021-07-24 07:11] LABS: Hematocrit (blood only) 23.8 % (42-52); Hemoglobin 7.7 g/dL (14.0-18.0); Mean Corpuscular Hemoglobin 26.2 pg (25-34); Mean Corpuscular Hgb Conc 32.4 g/dL (32-36); Mean Platelet Volume 8.6 fL (7.4-10.4); Platelet Count 255 K/uL (130-400); RDW Coefficient of Variation 16.5 % (11.5-14.5); RDW Standard Deviation 49.7 fL (36.4-46.3); Red Blood Count 2.94 M/uL (4.7-6.1); White Blood Count 11.05 K/uL (4.8-10.8)
[2021-07-24 07:36] LABS: BUN Creatinine Ratio 13.6 (10-20); Calcium 7.6 mg/dl (8.5-10.1); Creatinine Clr Calc Pharmacy 45.5 ml/min; Est GFR (African American) 77.5 ml/min; Est GFR (Non-African American) 66.9 ml/min; Potassium 3.3 mmol/L (3.5-5.1)
[2021-07-24] MEDS: METOPROLOL SUCC 25MG EXT REL TAB PO SCH ×2 (08:22→20:54)
[2021-07-24] MEDS: FINASTERIDE 5 MG TAB PO SCH (08:22)
[2021-07-24] MEDS: EZETIMIBE 10 MG TABLET PO SCH (08:22)
[2021-07-24] MEDS: AMIODARONE 200 MG TAB PO SCH (08:22)
[2021-07-24] MEDS: ATORVASTATIN 20 MG TAB PO SCH (08:22)
[2021-07-24] MEDS: amLODIPine BESYLATE 5 MG TAB PO SCH (08:22)
[2021-07-24] MEDS: levETIRAcetam 500 MG TAB PO SCH ×2 (08:23→20:55)
[2021-07-24] MEDS: POTASSIUM CHLORIDE 10 MEQ TABCR PO SCH ×2 (08:23→19:00)
[2021-07-24] MEDS: INSULIN ASPART PER UNIT SC SCH ×4 (08:24→20:47)
[2021-07-24] MEDS ORDERED: POTASSIUM CHLORIDE 10 MEQ TABCR PO STA (09:53)
[2021-07-24] MEDS: SILDENAFIL CITRATE 20 MG TABLET PO SCH ×2 (12:42→20:53)
--- NOTE | 2021-07-24 13:49 | Pharmacy Report ---
Pharmacy Vanc AUC Short Note - Date of Service July 24, 2021 - Assessment & Plan Assessment 81 year old M receiving IV vancomycin for treatment of enterococcus faecalis bacteremia. Pertinent microbiologic data includes: blood cultures positive for enterococcus faecalis; patient also has positive c-diff infection and on oral vancomycin for it Day # 4 of antimicrobial therapy. Plan Vancomycin (IV) * AUC/ALTAGRACIA is the preferred PK/PD target for vancomycin * AUC guided dosing is effective and associated with decreased risk of nephrotoxicity compared to traditional trough targets * Trough level of 16.1 mcg/mL is predicted to achieve target AUC/ALTAGRACIA of 400-600 mg/L.hr and may be associated with a 11 % risk of nephrotoxicity * Change to 1500 mg IV every 24 hours * Trough level ordered for:07/26/21 Vancomycin (ORAL) * 125 mg PO q6h started on 07/22 for c-diff infection Pharmacy will continue to follow and will adjust dose/frequency as necessary. Thank you.
[2021-07-24] MEDS ORDERED: VANCOMYCIN HCL 1,500 MG in SODIUM CHLORIDE 0.9% 500 ML IV SCH (16:00)
--- NOTE | 2021-07-24 19:41 | Hospitalist Progress Note ---
Date of Service July 24, 2021 Assessment & Plan (1) C. difficile diarrhea: Plan: Present on admission with weakness, diarrhea and dark stools Stool positive for C-diff WBC elevated at 18K -> 17K ->15 Gastro on board - No role for endoscopy unless pt develops overt GIB or drop in HGB Continue PO vancomycin 125mg QID ( Might need a slow taper course since pt is currently being treated as well as for bacteremia) IV PPI discontinued Continue monitor electrolytes Bacteremia Blood cx grew Gram positive cocci in chain- Enterococcus faecalis Pt was treating with IV vanco last month for 2 weeks for bacteremia Continue on IV Vancomycin Pt has a prosthetic valve IRENA done on 06/29 did not showed any evidence of vegetation Repeat ECHO during this admission showed no evidence of vegetation or mass Will talk to cardio for possible IRENA if echo negative Pt might need a longer course of abx, will defer with ID ID consulted- Pending repeat blood cx no growth Hypokalemia Mostly related to diarrhea K 3.3 today K replaced Continue monitor BMP Generalized weakness Mostly due to acute illness Continue PT/OT eval Fall precaution CAD (coronary atherosclerotic disease): Denies any chest pain no evidence of ACS. Continue beta javier and statin Asa on hold for possible GI bleed PVD (peripheral vascular disease): H/o stents to bilateral lower extremities. Cont medical therapy. Anemia: h/o hematuria with cystoscopy with cystourethral dilation, clot evacuation and extensive fulguration by Dr. Turcios in Feb 2021. Hemoglobin 7.7 Continue monitor CBC, will transfuse if continues to drop PAF (paroxysmal atrial fibrillation): Rate controlled on amiodarone Stable Pulmonary hypertension: Continue Revatio Stable DVT px SCD (for possible GI bleed ) Admission and Anticipated Discharge Date Admission Date: July 21, 2021 Subjective Pt was seen and examined for follow of diarrhea Sitting in chair with no acute distress Pt said that he is feeling much better today Diarrhea improved Denies any chest pain, palpitation, dizziness and SOB Review of Systems Review of Systems: All systems reviewed & are unremarkable except as noted in Subjective Physical Exam Physical Exam: General- No acute distress Head- atraumatic Eyes- PERRL, EOMI, ENT- oropharynx clear Neck- supple, no JVD Lungs- clear to auscultation Heart- regular rhythm; no murmur Abdomen- normal bowel sounds, soft, nontender Extremities- no calf tenderness Neuro- alert, oriented x 3; PERRL, EOMI; no facial palsy; no dysarthria Skin- warm & dry Results & Data Results & Data ([facility]) Vital Signs (Past 12 Hours) Vital Signs Temp Pulse Pulse Resp BP Pulse Ox 07/24/21 16:59 63 07/24/21 15:11 36.3 C L 63 20 125/54 L 97 07/24/21 11:39 36.2 C L 67 20 104/42 L 92 07/24/21 07:44 36.6 C 67 20 104/42 L 92
[2021-07-24] MEDS: GABAPENTIN 400 MG CAP PO SCH (20:53)
[2021-07-24] MEDS: TERAZOSIN HCL 5 MG CAP PO SCH (20:54)
[2021-07-25] MEDS: VANCOMYCIN HCL 125 MG/2.5ML SOLN PO SCH ×4 (05:18→23:59)
[2021-07-25] MEDS: RASPBERRY SYRUP 5 ML UDP PO SCH ×4 (05:18→23:58)
[2021-07-25 07:59] LABS: Hematocrit (blood only) 24.8 % (42-52); Mean Corpuscular Hemoglobin 26.1 pg (25-34); Mean Corpuscular Hgb Conc 32.3 g/dL (32-36); Mean Platelet Volume 8.8 fL (7.4-10.4); Platelet Count 266 K/uL (130-400); RDW Coefficient of Variation 16.4 % (11.5-14.5); Red Blood Count 3.06 M/uL (4.7-6.1)
[2021-07-25 08:30] LABS: BUN Creatinine Ratio 13.2 (10-20); Calcium 7.7 mg/dl (8.5-10.1); Creatinine Clr Calc Pharmacy 51.5 ml/min; Est GFR (Non-African American) 77.7 ml/min; Magnesium 1.8 mg/dl (1.7-2.4); Potassium 3.9 mmol/L (3.5-5.1)
[2021-07-25] MEDS: ATORVASTATIN 20 MG TAB PO SCH (09:36)
[2021-07-25] MEDS: SILDENAFIL CITRATE 20 MG TABLET PO SCH ×2 (09:36→20:43)
[2021-07-25] MEDS: amLODIPine BESYLATE 5 MG TAB PO SCH (09:36)
[2021-07-25] MEDS: EZETIMIBE 10 MG TABLET PO SCH (09:36)
[2021-07-25] MEDS: AMIODARONE 200 MG TAB PO SCH (09:36)
[2021-07-25] MEDS: METOPROLOL SUCC 25MG EXT REL TAB PO SCH ×2 (09:36→20:42)
[2021-07-25] MEDS: FINASTERIDE 5 MG TAB PO SCH (09:36)
[2021-07-25] MEDS: INSULIN ASPART PER UNIT SC SCH ×4 (09:37→20:41)
[2021-07-25] MEDS: POTASSIUM CHLORIDE 10 MEQ TABCR PO SCH ×2 (09:39→16:37)
[2021-07-25] MEDS: levETIRAcetam 500 MG TAB PO SCH ×2 (13:46→20:43)
--- NOTE | 2021-07-25 15:37 | Hospitalist Progress Note ---
Date of Service July 25, 2021 Assessment & Plan (1) C. difficile diarrhea: Plan: Present on admission with weakness, diarrhea and dark stools Stool positive for C-diff WBC elevated at 18K -> 17K ->15-->9K Gastro on board - No role for endoscopy unless pt develops overt GIB or drop in HGB ID recommended to continue PO Vanco QID, then once diarrhea resolves to transition to BID and continue beyond 1 more week once Ampicillin and Rocephin course complete. Clinically improved Sepsis Meet sepsis criteria on admission with leukocytosis/febrile Possible due to bacteremia/Cdif Recurrent Enterococcus Faecalis Bacteremia Blood cx grew Gram positive cocci in chain- Enterococcus faecalis Pt was treating with IV vanco last month for 2 weeks for bacteremia Hx of prosthetic valve and PPM IRENA done on 06/29 did not showed any evidence of vegetation Repeat ECHO during this admission showed no evidence of vegetation or mass Repeat blood cx negative so far ID on board recommended to discontinue IV Vancomycin. Will start on Ampicillin 2g q4 and Rocephin 2g Q12h for 6 weeks Will consult cardiology that will see patient and in am to eval for possible to repeat IRENA since echo negative Will place a picc line for IV abx infusion Not too happy since he will have to go to a facility to continue with the IV abx infusion for 6 weeks Hypokalemia Mostly related to diarrhea K 3.9 today Continue monitor BMP stable Generalized weakness Mostly due to acute illness Continue PT/OT eval Fall precaution CAD (coronary atherosclerotic disease): Denies any chest pain no evidence of ACS. Continue beta javier and statin Asa on hold for possible GI bleed PVD (peripheral vascular disease): H/o stents to bilateral lower extremities. Cont medical therapy. Anemia: h/o hematuria with cystoscopy with cystourethral dilation, clot evacuation and extensive fulguration by Dr. Turcios in Feb 2021. Hemoglobin 8 Continue monitor CBC PAF (paroxysmal atrial fibrillation): Rate controlled on amiodarone Stable Pulmonary hypertension: Continue Revatio Stable DVT px SCD (for possible GI bleed ) Disposition Will need placement to continue IV abx infusion Admission and Anticipated Discharge Date Admission Date: July 21, 2021 Subjective Pt was seen and examined for follow of diarrhea Lying in bed with no acute distress Pt said that he feels much better today He said that his diarrhea resolved He is not happy that he will need 6 weeks of IV abx with Rocephin and Ampicillin Denies any chest pain, palpitation, dizziness and SOB Review of Systems Review of Systems: All systems reviewed & are unremarkable except as noted in Subjective Physical Exam Physical Exam: General- No acute distress Head- atraumatic Eyes- PERRL, EOMI, ENT- oropharynx clear Neck- supple, no JVD Lungs- clear to auscultation Heart- regular rhythm; no murmur Abdomen- normal bowel sounds, soft, nontender Extremities- no calf tenderness Neuro- alert, oriented x 3; PERRL, EOMI; no facial palsy; no dysarthria Skin- warm & dry Results & Data Results & Data ([facility]) Vital Signs (Past 12 Hours) Vital Signs Temp Pulse Pulse Resp BP BP Pulse Ox 07/25/21 14:57 63 07/25/21 10:55 36.1 C L 67 18 112/53 L 93 07/25/21 07:27 36.3 C L 73 18 116/53 L 95 07/25/21 07:22 65
[2021-07-25] MEDS: AMPICILLIN 2,000 MG in SODIUM CHLOR 0.9% AD-VAN 100 ML IV SCH ×3 (16:37→23:59)
[2021-07-25] MEDS: cefTRIAXone SODIUM 2,000 MG in DEXTROSE 5% 50 ML IV SCH (18:28)
[2021-07-25] MEDS: TERAZOSIN HCL 5 MG CAP PO SCH (20:44)
[2021-07-25] MEDS: GABAPENTIN 400 MG CAP PO SCH (20:45)
[2021-07-26] MEDS: AMPICILLIN 2,000 MG in SODIUM CHLOR 0.9% AD-VAN 100 ML IV SCH ×4 (04:45→22:23)
[2021-07-26] MEDS: cefTRIAXone SODIUM 2,000 MG in DEXTROSE 5% 50 ML IV SCH ×2 (05:43→17:28)
[2021-07-26] MEDS: RASPBERRY SYRUP 5 ML UDP PO SCH ×3 (05:49→17:31)
[2021-07-26] MEDS: VANCOMYCIN HCL 125 MG/2.5ML SOLN PO SCH ×3 (05:49→17:31)
[2021-07-26 07:12] LABS: Hematocrit (blood only) 25.4 % (42-52); Hemoglobin 8.2 g/dL (14.0-18.0); Mean Corpuscular Hgb Conc 32.3 g/dL (32-36); Mean Corpuscular Volume 80.6 fL (80-100); Mean Platelet Volume 8.5 fL (7.4-10.4); Platelet Count 263 K/uL (130-400); RDW Coefficient of Variation 16.4 % (11.5-14.5); RDW Standard Deviation 48.2 fL (36.4-46.3); Red Blood Count 3.15 M/uL (4.7-6.1); White Blood Count 9.13 K/uL (4.8-10.8)
[2021-07-26 07:44] LABS: BUN Creatinine Ratio 10.9 (10-20); Calcium 7.6 mg/dl (8.5-10.1); Creatinine Clr Calc Pharmacy 46.4 ml/min; Est GFR (African American) 79.4 ml/min; Est GFR (Non-African American) 68.5 ml/min; Potassium 3.8 mmol/L (3.5-5.1)
[2021-07-26] MEDS: levETIRAcetam 500 MG TAB PO SCH ×2 (09:14→21:20)
[2021-07-26] MEDS: amLODIPine BESYLATE 5 MG TAB PO SCH (09:14)
[2021-07-26] MEDS: METOPROLOL SUCC 25MG EXT REL TAB PO SCH ×2 (09:14→21:20)
[2021-07-26] MEDS: AMIODARONE 200 MG TAB PO SCH (09:14)
[2021-07-26] MEDS: EZETIMIBE 10 MG TABLET PO SCH (09:14)
[2021-07-26] MEDS: FINASTERIDE 5 MG TAB PO SCH (09:14)
[2021-07-26] MEDS: ATORVASTATIN 20 MG TAB PO SCH (09:14)
[2021-07-26] MEDS: POTASSIUM CHLORIDE 10 MEQ TABCR PO SCH ×2 (09:15→17:28)
[2021-07-26] MEDS: SILDENAFIL CITRATE 20 MG TABLET PO SCH ×2 (09:15→21:51)
[2021-07-26] MEDS: INSULIN ASPART PER UNIT SC SCH ×4 (09:27→21:26)
--- NOTE | 2021-07-26 10:44 | Cardiology Consultation ---
Date of Consultation July 26, 2021 Assessment & Plan (1) Enterococcal bacteremia: (2) C. difficile diarrhea: (3) Anemia: (4) CHF (congestive heart failure): 81 year old male with either recurrent or ongoing enterococcal faecalis bacteremia. Currently afebrile. Blood pressure stable. Mental status however is not at his baseline. He previously completed a 2-week course of vancomycin on 07/11/2021 after having had a negative transesophageal echocardiogram a month ago June,. Infectious disease input noted and appreciated. The patient has multiple potential sources for prosthetic infection including a percutaneous ASD closure device (although this has likely been endothelialized as it has been in place several years making a low risk substrate), he has a transcatheter aortic valve prosthesis, and a dual-chamber permanent pacemaker. Pacemaker pocket without erythema. In addition to appropriate treatment for C. difficile, he is now receiving Rocephin plus ampicillin. Most recent pacemaker interrogation revealed ventricular pacing 95% the time, but he did appear to have intact AV conduction, although further assessment will be necessary to confirm that he is not pacemaker dependent at this time. I think would be beneficial to proceed with repeat transesophageal echocardiogram. If he has a vegetation on his pacemaker wires, extraction would be considered. I would however have concerns that he would be at prohibitively high risk for an open heart surgery with regards to intervention for the prosthetic aortic valve. Agree with 6-week course of antibiotic therapy as already recommended by infectious disease, further recommendations to be forthcoming after IRENA. I do believe he needs to be optimized from a CHF standpoint however as he is on nasal cannula oxygen. Will likely proceed with IRENA in 48 hours, if optimized. History of Present Illness Attending Physician: Fabian Lynn MD History of Present Illness Mr Dunham is an 81 year old male seen in cardiology consultation per the request of Dr Lynn for the evaluation of Enterococcus faecalis bacteremia. Patient well-known to the undersigned as I have followed him as an outpatient and inpatient for years. A month ago on 06/29/2021 he had undergone a transesophageal echocardiogram performed by the undersigned for the evaluation of Enterococcus faecalis bacteremia. No vegetation was noted. He completed a 2-week course of IV vancomycin which ended on 07/11/2021. He had been admitted with diarrhea concern for upper GI bleeding, and has been found to have C. difficile as well as the enterococcal bacteremia. At present, his mental status is not at his baseline. He is oriented to be in the hospital, but he is unable to provide for me the details of what led to his hospital stay without the providing clues. He has a noted expiratory wheeze. Past Cardiac History 1.ASD, status post percutaneous closure 12/14/2017, [facility] [place] 2.Severe aortic stenosis a.Status post TAVR 03/29/2021 with 23 mm Jaramillo Mariano valve b.Developed complete heart block postprocedure, status post permanent pacemaker 03/31/2021 3.Hypertension 4.Chronic with new left ventricular systolic dysfunction leading up to TAVR procedure, post procedure ejection fraction has normalized a.Chronic diastolic CHF, NYHA class 3 b.Right heart failure due to pulmonary hypertension- on Revatio c.Recent diagnosis of heart failure with reduced ejection fraction- in the setting of AFib with RVR and severe aortic stenosis, 02/2021 5.CAD, mild nonobstructive disease. a.Status post left heart catheterization 12/2017, left dominant with minimal nonobstructive luminal disease. b.Status post left and right heart catheterization 03/23/2021 at [facility], Left circumflex is dominant with a mid 30% stenosis, lad with minimal luminal irregularities, RCA small, non dominant and angiographically normal. 6.New onset paroxysmal atrial fibrillation 02/2021, not currently on anticoagulation due to krystin hematuria and anemia. On amiodarone and metoprolol 7.Status post lumbar surgery, 2014 8.PVD, status post stents to bilateral lower extremities 9.Carotid artery stenosis, following with vascular 10.Nocturnal hypoxia with O2 use 11.Former smoker, 1 pack per day- quit 40 years ago 12.History of prostate cancer/hematuria. Allergies Allergy/AdvReac Type Severity Reaction Status Date / Time bee venom protein (honey bee) Allergy Severe ANAPHYLAXIS-YELLOW Verified 07/21/21 20:52 JACKETS lorazepam AdvReac Mild oversedation Verified 07/21/21 20:52 from AWSS protocol Uncoded Nonscreenable Allergy Severe All Uncoded 07/21/21 20:52 Allergen IV's must be administered thru 0.2mic in-line filter Home Medications Medication Instructions Recorded Confirmed Type epinephrine 0.3 mg/0.3 mL 0.3 mg IM DIRECTED PRN 02/18/21 07/21/21 History injection, auto-injector (EpiPen) furosemide 40 mg tablet 20 mg PO 3XWK 02/18/21 07/21/21 History levetiracetam 500 mg tablet 500 mg PO BID 02/18/21 07/21/21 History sildenafil (pulm.hypertension) 20 20 mg PO BID 02/18/21 07/21/21 History mg tablet terazosin 10 mg capsule 10 mg PO HS 02/18/21 07/21/21 History amiodarone 200 mg tablet 200 mg PO QAM #30 tab 03/03/21 07/21/21 Rx aspirin 81 mg tablet,delayed 81 mg PO QAM #30 tab 03/03/21 07/21/21 Rx release gabapentin 400 mg capsule 400 mg PO HS #0 cap 06/09/21 07/21/21 Rx amlodipine 10 mg tablet 5 mg PO DAILY 06/25/21 07/21/21 History finasteride 5 mg tablet 5 mg PO DAILY 06/25/21 07/21/21 History metoprolol succinate 50 mg 75 mg PO BID 06/25/21 07/21/21 History tablet,extended release 24 hr atorvastatin 20 mg tablet 20 mg PO DAILY 07/21/21 07/21/21 History ezetimibe 10 mg tablet 10 mg PO DAILY 07/21/21 07/21/21 History iron,carbonyl 65 mg-vitamin C 125 1 tab PO DAILY 07/21/21 07/21/21 History mg tablet,delayed release (Vitron-C) potassium chloride 10 mEq 10 meq PO QAM 07/21/21 07/21/21 History tablet,extended release ampicillin sodium 2 gram solution 2 g IV Q4H 42 Days #1 ea 07/25/21 Rx for injection ceftriaxone 2 gram solution for 2 g IV Q12H 42 Days ea 07/25/21 Rx injection Patient History Medical History Acute hyponatremia Anemia Anemia Atrial fibrillation, new onset Atrial septal defect, secundum CAD (coronary atherosclerotic disease) Carotid artery stenosis CHI (closed head injury) Chronic diastolic CHF (congestive heart failure), NYHA class 3 Closed sacral fracture Complete heart block, post-surgical Elevated troponin Fall Generalized muscle weakness Gout H/O alcohol dependence Hematoma of scalp Hematuria Hypokalemia Lumbar radiculopathy Moderate aortic stenosis Orthostasis PVD (peripheral vascular disease) Right heart failure due to pulmonary hypertension on Revatio, chronic oxygen 2LPM Weakness Surgical History S/P appendectomy 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 King Status post lumbar surgery 2014 Social History Smoking Status: Former smoker Tobacco Type: Cigarettes Smoking End Date: 1969; Second Hand Exposure: No; Do You Dip or Chew Tobacco: No; Tobacco Cessation Education Requested by Patient: No Hx Alcohol Use: No Hx Substance Use: No Preferred Language: Nepali Communication Ability: Effective Occupational Health Coordinator Required: No Beliefs That Will Affect Care: None marital status: Current Living Situation: Spouse Current Living Situation Comment: Lives with How many Children do You have: 1 Other Information That Helps Us Care for You: No Feels Safe at Home: Yes Safety Concerns: Feels Safe At This Time Assistive Devices: Mechanical Lift, Oxygen - at Night and Walker Review of Systems Review of Systems: Unobtainable due to cognitive status Physical Exam Physical Exam: Temp Pulse Resp BP Pulse Ox 36.4 C L 70 16 127/56 L 94 07/26/21 07:56 07/26/21 07:56 07/26/21 07:56 07/26/21 07:56 07/26/21 07:56 Constitutional: + ill appearing Respiratory: Inspiratory wheeze noted, mildly reduced breath sounds at the bases Cardiovascular: Rate/Rhythm: regular rate Heart Sounds: normal S1 and normal S2; no murmur Vessels: no JVD Extremities: + edema (Trace pedal edema) Chest (Breasts): Additional Comments: Left infraclavicular pacemaker pocket clean dry and intact Results & Data ([facility]) Vital Signs (Past 12 Hours) Vital Signs Temp Pulse Pulse Resp BP BP Pulse Ox 07/26/21 07:56 36.4 C L 70 16 127/56 L 94 07/26/21 07:36 66 07/26/21 04:00 36.5 C 68 18 127/60 94 07/25/21 23:48 36.4 C L 66 18 134/65 97 Diagnostic Findings EKG performed 06/27/2021 revealed sinus rhythm with AV sequential pacing: Telemetry today reveals sinus rhythm with ventricular pacing in the 60s. Transthoracic echocardiogram performed this admission 07/24/2021: Moderate to severe mitral annular calcification, mild mitral regurgitation, LVEF 60 to 65%, No evidence of valvular vegetation within the limitations of this imaging modality (1) Anemia Anemia type: unspecified type Qualified Code(s): D64.9 - Anemia, unspecified (2) CHF (congestive heart failure) Heart failure chronicity: acute on chronic Heart failure type: unspecified Qualified Code(s): I50.9 - Heart failure, unspecified
[2021-07-26] MEDS: FUROSEMIDE INJ 20 MG/2 ML VIAL IV SCH (12:14)
[2021-07-26] MEDS ORDERED: VANCOMYCIN TROUGH ONE (15:30)
[2021-07-26] MEDS: TERAZOSIN HCL 5 MG CAP PO SCH (21:20)
[2021-07-26] MEDS: GABAPENTIN 400 MG CAP PO SCH (21:51)
--- NOTE | 2021-07-26 22:09 | Hospitalist Progress Note ---
Date of Service July 26, 2021 Assessment & Plan (1) C. difficile diarrhea: Plan: Present on admission with weakness, diarrhea and dark stools Stool positive for C-diff WBC elevated at 18K -> 17K ->15-->9K Gastro on board - No role for endoscopy unless pt develops overt GIB or drop in HGB ID recommended to continue PO Vanco QID, then once diarrhea resolves to transition to BID and continue beyond 1 more week after Ampicillin and Rocephin course complete. Clinically improved Sepsis Meet sepsis criteria on admission with leukocytosis/febrile Possible due to bacteremia/Cdif Recurrent Enterococcus Faecalis Bacteremia Blood cx grew Gram positive cocci in chain- Enterococcus faecalis Pt was treating with IV vanco last month for 2 weeks for bacteremia Hx of prosthetic valve and PPM IRENA done on 06/29 did not showed any evidence of vegetation Repeat ECHO during this admission showed no evidence of vegetation or mass Repeat blood cx negative so far ID on board recommended to discontinue IV Vancomycin. Will start on Ampicillin 2g q4 and Rocephin 2g Q12h for 6 weeks Picc line placed for IV abx infusion Not too happy since he will have to go to a facility to continue with the IV abx infusion for 6 weeks cardiology on board - Lasix given today Plan for IRENA on 07/28 Hypokalemia Mostly related to diarrhea K 3.8 today Continue monitor BMP stable Generalized weakness Mostly due to acute illness Continue PT/OT eval Fall precaution CAD (coronary atherosclerotic disease): Denies any chest pain no evidence of ACS. Continue beta javier and statin Asa on hold for possible GI bleed Will resume once hgb remains stable PVD (peripheral vascular disease): H/o stents to bilateral lower extremities. Cont medical therapy. Anemia: h/o hematuria with cystoscopy with cystourethral dilation, clot evacuation and extensive fulguration by Dr. Turcios in Feb 2021. Hemoglobin 8.2 Continue monitor CBC PAF (paroxysmal atrial fibrillation): Rate controlled on amiodarone Stable Pulmonary hypertension: Continue Revatio Stable DVT px SCD (for possible GI bleed ) Disposition Plan for IRENA on 07/28 Will need placement to continue IV abx infusion Admission and Anticipated Discharge Date Admission Date: July 21, 2021 Subjective Pt was seen and examined for follow of diarrhea and bacteremia Lying in bed with no acute distress Pt said that he feels much better today Denies any chest pain, palpitation, dizziness and SOB Review of Systems Review of Systems: All systems reviewed & are unremarkable except as noted in Subjective Physical Exam Physical Exam: General- No acute distress Head- atraumatic Eyes- PERRL, EOMI, ENT- oropharynx clear Neck- supple, no JVD Lungs- clear to auscultation Heart- regular rhythm; no murmur Abdomen- normal bowel sounds, soft, nontender Extremities- no calf tenderness Neuro- alert, oriented x 3; PERRL, EOMI; no facial palsy; no dysarthria Skin- warm & dry Results & Data Results & Data ([facility]) Vital Signs (Past 12 Hours) Vital Signs Temp Pulse Pulse Resp BP Pulse Ox 07/26/21 19:50 36.3 C L 92 H 18 124/47 L 94 07/26/21 15:51 36.6 C 100 H 16 145/62 H 94 07/26/21 14:53 62 07/26/21 14:20 94 07/26/21 12:15 36.5 C 70 20 130/45 L 96
[2021-07-27] MEDS: RASPBERRY SYRUP 5 ML UDP PO SCH ×4 (00:31→21:11)
[2021-07-27] MEDS: VANCOMYCIN HCL 125 MG/2.5ML SOLN PO SCH ×4 (00:31→21:11)
[2021-07-27] MEDS: AMPICILLIN 2,000 MG in SODIUM CHLOR 0.9% AD-VAN 100 ML IV SCH ×4 (01:25→19:43)
[2021-07-27] MEDS: cefTRIAXone SODIUM 2,000 MG in DEXTROSE 5% 50 ML IV SCH ×2 (05:03→19:38)
[2021-07-27 06:21] LABS: Hematocrit (blood only) 25.2 % (42-52); Mean Corpuscular Hemoglobin 25.6 pg (25-34); Mean Corpuscular Hgb Conc 31.7 g/dL (32-36); Mean Corpuscular Volume 80.8 fL (80-100); Mean Platelet Volume 8.8 fL (7.4-10.4); Platelet Count 280 K/uL (130-400); RDW Coefficient of Variation 16.5 % (11.5-14.5); RDW Standard Deviation 48.3 fL (36.4-46.3); Red Blood Count 3.12 M/uL (4.7-6.1); White Blood Count 9.79 K/uL (4.8-10.8)
[2021-07-27 07:01] LABS: BUN Creatinine Ratio 9.9 (10-20); Calcium 8.1 mg/dl (8.5-10.1); Creatinine Clr Calc Pharmacy 38.7 ml/min; Est GFR (African American) 63.8 ml/min; Potassium 3.9 mmol/L (3.5-5.1)
[2021-07-27] MEDS: INSULIN ASPART PER UNIT SC SCH ×4 (09:00→21:11)
[2021-07-27] MEDS: POTASSIUM CHLORIDE 10 MEQ TABCR PO SCH ×2 (09:26→17:51)
[2021-07-27] MEDS: EZETIMIBE 10 MG TABLET PO SCH (09:26)
[2021-07-27] MEDS: FUROSEMIDE INJ 20 MG/2 ML VIAL IV SCH (09:26)
[2021-07-27] MEDS: AMIODARONE 200 MG TAB PO SCH (09:26)
[2021-07-27] MEDS: levETIRAcetam 500 MG TAB PO SCH ×2 (09:26→21:10)
[2021-07-27] MEDS: ATORVASTATIN 20 MG TAB PO SCH (09:26)
[2021-07-27] MEDS: FINASTERIDE 5 MG TAB PO SCH (09:26)
[2021-07-27] MEDS: SILDENAFIL CITRATE 20 MG TABLET PO SCH ×2 (09:26→21:10)
[2021-07-27] MEDS: amLODIPine BESYLATE 5 MG TAB PO SCH (09:26)
[2021-07-27] MEDS: METOPROLOL SUCC 25MG EXT REL TAB PO SCH ×2 (09:26→21:10)
--- NOTE | 2021-07-27 10:44 | Cardiology Progress Note ---
Date of Service July 27, 2021 Assessment & Plan (1) Enterococcal bacteremia: (2) C. difficile diarrhea: (3) Anemia: (4) CHF (congestive heart failure): Plan: 81 year old male with either recurrent or ongoing enterococcal faecalis bacteremia. Currently afebrile. Blood pressure stable. He previously completed a 2-week course of vancomycin on 07/11/2021 after having had a negative transesophageal echocardiogram a month ago June,. The patient has multiple potential sources for prosthetic infection including a percutaneous ASD closure device (although this has likely been endothelialized as it has been in place several years making a low risk substrate), he has a transcatheter aortic valve prosthesis, and a dual-chamber permanent pacemaker. Pacemaker pocket without erythema. In addition to appropriate treatment for C. difficile, he is now receiving Rocephin plus ampicillin. Continue furosemide 20 mg IV daily He is not on pharmacologic DVT prophylaxis due to relative anemia, hemoglobin 8, risk/benefit need to be reassessed on a daily basis. Plan for transesophageal echocardiogram tomorrow if clinically optimized. Admission and Anticipated Discharge Date Admission Date: July 21, 2021 Subjective Patient seen in cardiology follow-up of enterococcal faecalis bacteremia. Well- known to the undersigned. Patient more alert today, conversant. Generalized fatigue noted. Afebrile. Still on supplemental oxygen. Despite administration of IV furosemide yesterday, balance remains 1.1 L positive. Review of Systems Review of Systems: Comprehensive review of systems limited due to the patient's lethargy, but no complaints noted at present. Physical Exam Constitutional: + ill appearing Respiratory: Mildly reduced breath sounds in the bases, no rubs rales rhonchi or wheezing Cardiovascular: Rate/Rhythm: regular rate Heart Sounds: normal S1 and normal S2; no murmur Vessels: no JVD Extremities: + edema (Trace pedal edema) Gastrointestinal (Abdomen): normal bowel sounds, soft, nontender, no hepatosplenomegaly Skin: No stigmata of peripheral embolic phenomenon on his fingers or toes Neurologic: No focal deficits, generalized lethargy Results & Data ([facility]) Vital Signs (Past 12 Hours) Vital Signs Temp Pulse Pulse Resp BP Pulse Ox 07/27/21 08:20 61 07/27/21 07:49 36.3 C L 67 20 123/71 93 07/27/21 04:36 36.2 C L 66 20 131/60 97 07/26/21 23:45 64 07/26/21 23:17 36.2 C L 66 18 134/47 L 92 Laboratory Results CBC 07/27/21 Range/Units 05:54 WBC 9.79 (4.8-10.8) K/uL RBC 3.12 L (4.7-6.1) M/uL Hgb 8.0 L (14.0-18.0) g/dL Hct 25.2 L (42-52) % Plt Count 280 (130-400) K/uL Comprehensive Metabolic Panel 07/27/21 Range/Units 05:54 Sodium 137 (136-145) mmol/L Potassium 3.9 (3.5-5.1) mmol/L Chloride 105 (98-107) mmol/L Carbon Dioxide 27 (21-32) mmol/L BUN 12 (6-23) mg/dl Creatinine 1.21 (0.6-1.4) mg/dl Glucose 105 H (70-99(Fasting)) mg/dl Calcium 8.1 L (8.5-10.1) mg/dl Intake and Output 07/26/21 07/27/21 07/27/21 22:59 06:59 14:59 Intake Total 410 / 1510 170 / 1510 100 / 100 Balance 410 / 1234 170 / 1234 100 / 100 Intake: IV 170 / 610 170 / 610 100 / 100 Ampicillin 2,000 mg In Sodium 100 / 300 100 / 300 100 / 100 Chlor 0.9% Ad-Van 100 ml @ 200 mls/hr IV Q6H LARRY Rx#:[id number] cefTRIAXone SODIUM 2,000 mg In 70 / 210 70 / 210 Dextrose 5% 50 ml @ 140 mls/hr IV Q12H LARRY Rx#:[id number] Oral 240 / 900 Other: Other Intake Source Sips # Unmeasured Voids 1 1 Weight 68.9 kg Weight Measurement Method Built in [facility] (1) Anemia Anemia type: unspecified type Qualified Code(s): D64.9 - Anemia, unspecified (2) CHF (congestive heart failure) Heart failure chronicity: acute on chronic Heart failure type: unspecified Qualified Code(s): I50.9 - Heart failure, unspecified
--- NOTE | 2021-07-27 11:14 | Communication Note ---
Date of Service: July 27, 2021 I called pt's son, Jayson, and updated him, discussed IRENA planned for tomorrow.
--- NOTE | 2021-07-27 13:15 | XRay Report ---
TWO VIEW CHEST CLINICAL HISTORY: Congestive heart failure. FINDINGS: PA and lateral chest radiographs are compared to study dated 07/21/2021 and correlated with chest CT dated 02/26/2021. A right PICC line is new from previous. The tip projects over the cavoatri al junction. A 2-lead cardiac pacemaker is unchanged in position and partially obscures the left mid chest. There is evidence of previous cardiac valve surgery. An atrial septal closure device is in anna ce. The heart is enlarged noting atherosclerotic calcification of the thoracic aorta. There is mild p ulmonary vascular congestion. There are trace pleural effusions with bibasilar consolidation. There i s no pneumothorax. The skeletal structures are osteopenic. The bony thorax appears intact. Degenerati ve change is noted in the thoracic spine. Fusion hardware is noted in the lower cervical spine. IMPRESSION: 1. Cardiomegaly and cardiac pacemaker with mild pulmonary vascular congestion. 2. Trace pleural effusions with bibasilar consolidation. This likely represents atelectasis. Correlat e clinically for evidence of a superimposed infectious/inflammatory pneumonitis. 3. A right PICC line is new from previous. ACT 112: Negative or not required by law. Electronically signed by: Ceasar Higgins M.D. 07/27/2021 1:14 PM
--- NOTE | 2021-07-27 16:10 | Hospitalist Progress Note ---
Date of Service July 27, 2021 Assessment & Plan (1) C. difficile diarrhea: Plan: per Dr. Lynn's notes with addendum: C diff Diarrhea Present on admission with weakness, diarrhea and dark stools Stool positive for C-diff WBC elevated at 18K -> 17K ->15-->9K Gastro on board - No role for endoscopy unless pt develops overt GIB or drop in HGB ID recommended to continue PO Vanco QID, then once diarrhea resolves to transition to BID and continue beyond 1 more week after Ampicillin and Rocephin course complete. 07/27 Diarrhea resolved decrease Vancomycin to BID Sepsis Meet sepsis criteria on admission with leukocytosis/febrile Possible due to bacteremia/Cdif Recurrent Enterococcus Faecalis Bacteremia Blood cx grew Gram positive cocci in chain- Enterococcus faecalis Pt was treating with IV vanco last month for 2 weeks for bacteremia Hx of prosthetic valve and PPM IRENA done on 06/29 did not showed any evidence of vegetation Repeat ECHO during this admission showed no evidence of vegetation or mass Repeat blood cx negative so far ID on board recommended to discontinue IV Vancomycin. Will start on Ampicillin 2g q4 and Rocephin 2g Q12h for 6 weeks Picc line placed for IV abx infusion 07/27 afebrile tolerating antibiotics well for IRENA tomorrow Acute Diastolic CHF continue Lasix 20mg IV daily Hypokalemia Mostly related to diarrhea K 3.9 Generalized weakness Mostly due to acute illness Continue PT/OT eval Fall precaution CAD (coronary atherosclerotic disease): Denies any chest pain no evidence of ACS. Continue beta javier and statin Hg stable resume Aspirin PVD (peripheral vascular disease): H/o stents to bilateral lower extremities. Cont medical therapy. Anemia: h/o hematuria with cystoscopy with cystourethral dilation, clot evacuation and extensive fulguration by Dr. Turcios in Feb 2021. Hemoglobin 8.2 Continue monitor CBC check anemia panel PAF (paroxysmal atrial fibrillation): Rate controlled on amiodarone Stable Pulmonary hypertension: Continue Revatio Stable DVT px SCD (for possible GI bleed ) Disposition Plan for IRENA on 07/28 Will need placement to continue IV abx infusion Admission and Anticipated Discharge Date Admission Date: July 21, 2021 Subjective ff up for bacteremia, etc seen resting in bedside chair, comfortable states he feels fine overall no chest pain, dyspnea, palpitations, dizziness no diarrhea no other symptoms Review of Systems Review of Systems: all noted and negative except for above Physical Exam Physical Exam: General- oriented x 3, not in distress, speaks in sentences with no effort or accessory muscle use Eyes- anicteric Neck- no JVD Lungs- clear breath sounds bilaterally, no rales/wheezes Heart- normal rate, regular rhythm; no murmurs Abdomen- normal bowel sounds, nondistended, soft, nontender Extremities- no pretibial edema, no calf tenderness Neuro- alert, oriented x 3; no gross focal neurologic deficits Skin- warm & dry Results & Data Results & Data ([facility]) Vital Signs (Past 12 Hours) Vital Signs Temp Pulse Pulse Resp BP Pulse Ox 07/27/21 15:31 60 07/27/21 15:25 36.3 C L 63 20 119/62 95 07/27/21 11:16 36.5 C 59 L 20 111/54 L 95 07/27/21 08:20 61 07/27/21 07:49 36.3 C L 67 20 123/71 93 07/27/21 04:36 36.2 C L 66 20 131/60 97 all noted and reviewed including below
[2021-07-27] MEDS: GABAPENTIN 400 MG CAP PO SCH (21:09)
[2021-07-27] MEDS: TERAZOSIN HCL 5 MG CAP PO SCH (21:12)
[2021-07-28] MEDS: AMPICILLIN 2,000 MG in SODIUM CHLOR 0.9% AD-VAN 100 ML IV SCH ×4 (01:37→20:32)
[2021-07-28] MEDS: cefTRIAXone SODIUM 2,000 MG in DEXTROSE 5% 50 ML IV SCH ×2 (05:29→17:32)
[2021-07-28 06:28] LABS: Basophils # (auto) 0.04 K/uL (0-0.2); Basophils % (auto) 0.4 %; Eosinophils # (auto) 0.52 K/uL (0-0.5); Eosinophils % (auto) 4.9 %; Hematocrit (blood only) 23.7 % (42-52); Hemoglobin 7.7 g/dL (14.0-18.0); Immature Granulocytes # (auto) 0.36 K/uL (0.00-0.02); Immature Granulocytes % (auto) 3.4 %; Lymphocytes # (auto) 1.11 K/uL (1.2-3.4); Lymphocytes % (auto) 10.4 %; Mean Corpuscular Hemoglobin 25.8 pg (25-34); Mean Corpuscular Hgb Conc 32.5 g/dL (32-36); Mean Corpuscular Volume 79.5 fL (80-100); Mean Platelet Volume 8.6 fL (7.4-10.4); Monocytes % (auto) 11.2 %; Neutrophils # (auto) 7.45 K/uL (1.4-6.5); Neutrophils % (auto) 69.7 %; Platelet Count 280 K/uL (130-400); RDW Coefficient of Variation 16.6 % (11.5-14.5); RDW Standard Deviation 48.2 fL (36.4-46.3); Red Blood Count 2.98 M/uL (4.7-6.1); White Blood Count 10.68 K/uL (4.8-10.8)
[2021-07-28 06:58] LABS: Calcium 8.1 mg/dl (8.5-10.1); Creatinine Clr Calc Pharmacy 22.1 ml/min; Est GFR (African American) 32.4 ml/min; Est GFR (Non-African American) 27.9 ml/min; Potassium 4.2 mmol/L (3.5-5.1)
[2021-07-28 06:59] LABS: Polychromasia 1+
[2021-07-28] MEDS ORDERED: LIDOCAINE 2% 2 ML VIAL/AMP(20MG/ML) INFIL ONE (07:15)
[2021-07-28] MEDS ORDERED: PROPOFOL IV EMULSION 10 MG/ML 20 ML VIAL IV ONE (07:15)
[2021-07-28 07:22] LABS: Ferritin 153.1 ng/ml (8-388)
[2021-07-28 07:27] LABS: Folate (Folic Acid) 7.26 ng/ml (>5.38)
--- NOTE | 2021-07-28 07:28 | History & Physical Bridge Note ---
Date of Service July 28, 2021 History & Physical Bridge Note I have examined the patient, reviewed the History & Physical and in the interval since the performance of the History & Physical I have noted the following changes of clinical significance: Data: Cardiac Enzymes 07/21/21 07/21/21 07/21/21 Range/Units 18:30 18:30 21:35 Hgb 8.7 L 7.8 L (14.0-18.0) g/dL Creatinine 1.11 (0.6-1.4) mg/dl 07/22/21 07/22/21 07/22/21 Range/Units 04:50 04:50 12:19 Hgb 8.3 L 8.4 L (14.0-18.0) g/dL Creatinine 1.13 (0.6-1.4) mg/dl 07/23/21 07/23/21 07/24/21 Range/Units 06:48 06:48 06:58 Hgb 8.0 L (14.0-18.0) g/dL Creatinine 1.06 1.03 (0.6-1.4) mg/dl 07/24/21 07/25/21 07/25/21 Range/Units 06:58 07:32 07:32 Hgb 7.7 L 8.0 L (14.0-18.0) g/dL Creatinine 0.91 (0.6-1.4) mg/dl 07/26/21 07/26/21 07/27/21 Range/Units 06:55 06:55 05:54 Hgb 8.2 L 8.0 L (14.0-18.0) g/dL Creatinine 1.01 (0.6-1.4) mg/dl 07/27/21 07/28/21 07/28/21 Range/Units 05:54 05:59 05:59 Hgb 7.7 L (14.0-18.0) g/dL Creatinine 1.21 2.12 H D (0.6-1.4) mg/dl CBC 07/28/21 Range/Units 05:59 WBC 10.68 (4.8-10.8) K/uL RBC 2.98 L (4.7-6.1) M/uL Hgb 7.7 L (14.0-18.0) g/dL Hct 23.7 L (42-52) % Plt Count 280 (130-400) K/uL Neut # (Auto) 7.45 H (1.4-6.5) K/uL Lymph # (Auto) 1.11 L (1.2-3.4) K/uL Hyde # (Auto) 1.20 H (0.11-0.59) K/uL Eos # (Auto) 0.52 H (0-0.5) K/uL Baso # (Auto) 0.04 (0-0.2) K/uL Comprehensive Metabolic Panel 07/28/21 Range/Units 05:59 Sodium 136 (136-145) mmol/L Potassium 4.2 (3.5-5.1) mmol/L Chloride 104 (98-107) mmol/L Carbon Dioxide 25 (21-32) mmol/L BUN 19 (6-23) mg/dl Creatinine 2.12 H D (0.6-1.4) mg/dl Glucose 105 H (70-99(Fasting)) mg/dl Calcium 8.1 L (8.5-10.1) mg/dl Intake and Output 07/27/21 07/28/21 07/28/21 22:59 06:59 14:59 Intake Total 445 / 1795 270 / 1795 Output Total 225 / 225 Balance 445 / 1570 45 / 1570 Intake: IV 170 / 540 170 / 540 Ampicillin 2,000 mg In Sodium 100 / 400 100 / 400 Chlor 0.9% Ad-Van 100 ml @ 200 mls/hr IV Q6H LARRY Rx#:[id number] cefTRIAXone SODIUM 2,000 mg In 70 / 140 70 / 140 Dextrose 5% 50 ml @ 140 mls/hr IV Q12H LARRY Rx#:[id number] Oral 275 / 1255 100 / 1255 Output: Urine 225 / 225 Other: Weight 70.2 kg Weight Measurement Method Built in [facility] CXR from 07/27/21: mild interstitial edema, trace bilateral pleural effusions Impression: Oxygen saturation in low 90s on room air on arrival to cardiac testing suit. Mental status appropriate. New acute kidney injury noted with creatinine up to 2.12. Ongoing anemia noted (this has been a chronic issue, prompted discontinuation of outpatient anticoagulation 2 months ago) Plan: Proceed with IRENA , cautious approach to sedation. Case discussed with anesthesia. Informed consent obtained, pt elects to proceed. Furosemide discontinued.
--- NOTE | 2021-07-28 07:29 | Anesthesiology Consultation ---
Date of Service July 28, 2021 History Surgery Operation Date: 07/28/21 07:30 Proposed Procedures p Transesophageal Echo w/Anesthesia - Dylan Prado DO Height/Weight Height: 5 ft 4 in Weight: 70.2 kg Allergies Allergy/AdvReac Type Severity Reaction Status Date / Time bee venom protein (honey bee) Allergy Severe ANAPHYLAXIS-YELLOW Verified 07/21/21 20:52 JACKETS lorazepam AdvReac Mild oversedation Verified 07/21/21 20:52 from AWSS protocol Uncoded Nonscreenable Allergy Severe All Uncoded 07/21/21 20:52 Allergen IV's must be administered thru 0.2mic in-line filter Medications Home Medications Medication Instructions Recorded Confirmed Last Taken epinephrine 0.3 mg/0.3 mL 0.3 mg IM DIRECTED PRN 02/18/21 07/21/21 Unknown injection, auto-injector (EpiPen) furosemide 40 mg tablet 20 mg PO 3XWK 02/18/21 07/21/21 06/24/21 levetiracetam 500 mg tablet 500 mg PO BID 02/18/21 07/21/21 06/24/21 sildenafil (pulm.hypertension) 20 20 mg PO BID 02/18/21 07/21/21 06/24/21 mg tablet terazosin 10 mg capsule 10 mg PO HS 02/18/21 07/21/21 06/24/21 amiodarone 200 mg tablet 200 mg PO QAM #30 tab 03/03/21 07/21/21 06/24/21 aspirin 81 mg tablet,delayed 81 mg PO QAM #30 tab 03/03/21 07/21/21 06/24/21 release gabapentin 400 mg capsule 400 mg PO HS #0 cap 06/09/21 07/21/21 06/24/21 amlodipine 10 mg tablet 5 mg PO DAILY 06/25/21 07/21/21 Unknown finasteride 5 mg tablet 5 mg PO DAILY 06/25/21 07/21/21 06/24/21 metoprolol succinate 50 mg 75 mg PO BID 06/25/21 07/21/21 06/24/21 tablet,extended release 24 hr atorvastatin 20 mg tablet 20 mg PO DAILY 07/21/21 07/21/21 Unknown ezetimibe 10 mg tablet 10 mg PO DAILY 07/21/21 07/21/21 Unknown iron,carbonyl 65 mg-vitamin C 125 1 tab PO DAILY 07/21/21 07/21/21 Unknown mg tablet,delayed release (Vitron-C) potassium chloride 10 mEq 10 meq PO QAM 07/21/21 07/21/21 Unknown tablet,extended release ampicillin sodium 2 gram solution 2 g IV Q4H 42 Days #1 ea 07/25/21 Unknown for injection ceftriaxone 2 gram solution for 2 g IV Q12H 42 Days ea 07/25/21 Unknown injection Active Medications Generic Name Dose Route Start Last Admin Trade Name Freq PRN Reason Stop Dose Admin Acetaminophen 650 mg 07/21/21 22:35 07/22/21 03:59 Acetaminophen 325 Mg Tab PO 08/20/21 22:34 650 mg Q4H PRN Administration Pain or Fever Amiodarone HCl 200 mg 07/22/21 09:00 07/27/21 09:26 Amiodarone 200 Mg Tab PO 08/21/21 08:59 200 mg QAM LARRY Administration Amlodipine Besylate 5 mg 07/22/21 09:00 07/27/21 09:26 Amlodipine Besylate 5 Mg Tab PO 08/21/21 08:59 5 mg DAILY LARRY Administration Atorvastatin Calcium 20 mg 07/22/21 09:00 07/27/21 09:26 Atorvastatin 20 Mg Tab PO 08/21/21 08:59 20 mg DAILY LARRY Administration Ezetimibe 10 mg 07/22/21 09:00 07/27/21 09:26 Ezetimibe 10 Mg Tablet PO 08/21/21 08:59 10 mg DAILY LARRY Administration Finasteride 5 mg 07/22/21 09:00 07/27/21 09:26 Finasteride 5 Mg Tab PO 08/21/21 08:59 5 mg DAILY LARRY Administration Gabapentin 400 mg 07/22/21 21:00 07/27/21 21:09 Gabapentin 400 Mg Cap PO 08/21/21 20:59 400 mg HS LARRY Administration Heparin Sodium (Beef Lung) 5 ml 07/26/21 12:16 07/27/21 20:18 Heparin 10 Unit/Ml 5 Ml Flush FLUSH 08/25/21 12:15 5 ml PRN PRN Administration Flush Ceftriaxone Sodium 2,000 mg/ 70 mls @ 140 mls/hr 07/25/21 18:00 07/28/21 06:11 Dextrose IV 09/05/21 17:59 Infused Q12H LARRY Infusion Ampicillin Sodium 2,000 mg/ 100 mls @ 200 mls/hr 07/26/21 14:00 07/28/21 02:07 Sodium Chloride IV 09/06/21 13:59 Infused Q6H LARRY Infusion Protocol Insulin Aspart 0 units 07/22/21 21:00 07/27/21 21:11 Insulin Aspart Per Unit SC 08/20/21 22:59 Not Given ACHS LARRY Levetiracetam 500 mg 07/21/21 22:35 07/27/21 21:10 Levetiracetam 500 Mg Tab PO 08/20/21 22:34 500 mg BID LARRY Administration Metoprolol Succinate 75 mg 07/21/21 22:35 07/27/21 21:10 Metoprolol Succ 25mg Ext Rel Tab PO 08/20/21 22:34 75 mg BID LARRY Administration Potassium Chloride 10 meq 07/22/21 09:00 07/27/21 17:51 Potassium Chloride 10 Meq Tabcr PO 08/21/21 08:59 10 meq BID17 LARRY Administration Raspberry 5 ml 07/27/21 21:00 07/27/21 21:11 Raspberry Syrup 5 Ml Udp PO 08/01/21 11:59 5 ml BID ALRRY Administration Sildenafil Citrate 20 mg 07/22/21 09:00 07/27/21 21:10 Sildenafil Citrate 20 Mg Tablet PO 08/21/21 08:59 20 mg BID LARRY Administration Terazosin HCl 10 mg 07/22/21 21:00 07/27/21 21:12 Terazosin Hcl 5 Mg Cap PO 08/21/21 20:59 10 mg HS LARRY Administration Vancomycin HCl 125 mg 07/27/21 21:00 07/27/21 21:11 Vancomycin Hcl 125 Mg/2.5ml Soln PO 08/06/21 20:59 125 mg BID LARRY Administration NPO Date Last Intake of Fluids: 07/27/21 Time Last Intake of Fluids: 19:00 Date Last Intake of Solids: 07/27/21 Time Last Intake of Solids: 17:00 Past Medical History Medical History Acute hyponatremia Anemia Anemia Atrial fibrillation, new onset Atrial septal defect, secundum CAD (coronary atherosclerotic disease) Carotid artery stenosis CHI (closed head injury) Chronic diastolic CHF (congestive heart failure), NYHA class 3 Closed sacral fracture Complete heart block, post-surgical Elevated troponin Fall Generalized muscle weakness Gout H/O alcohol dependence Hematoma of scalp Hematuria Hypokalemia Lumbar radiculopathy Moderate aortic stenosis Orthostasis PVD (peripheral vascular disease) Right heart failure due to pulmonary hypertension on Revatio, chronic oxygen 2LPM Weakness Past Surgical History Surgical History S/P appendectomy 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 King Status post lumbar surgery 2014 Social History Smoking Status: Former smoker tobacco type: cigarettes Do You Dip or Chew Tobacco: No Smoking End Date: 1969 Hx Alcohol Use: No Alcohol type: beer alcohol intake frequency: 3 or more drinks per day Hx Substance Use: No substance use type: does not use Physical Exam Vital Signs Last Vital Signs Temp 36.3 C L 07/28/21 06:45 Pulse 63 07/28/21 07:10 Resp 18 07/28/21 07:10 BP 135/52 L 07/28/21 07:10 Pulse Ox 95 07/28/21 07:10 Testing Laboratory Results 07/28/21 05:59 07/28/21 05:59 PT 11.5 Seconds (9.0-12.0) 07/21/21 18:30 INR 1.1 (0.9-1.1) 07/21/21 18:30 APTT 27.7 Seconds (21.0-31.0) 07/21/21 18:30 Hemoglobin A1c 5.9 % (4.5-5.6) H 07/22/21 04:50 Urine Color Yellow 07/22/21 Unknown Urine Appearance Clear (Clear) 07/22/21 Unknown Urine pH 5.0 (4.5-7.5) 07/22/21 Unknown Ur Specific [place] 1.010 (1.000-1.030) 07/22/21 Unknown Urine Protein Negative (Negative) 07/22/21 Unknown Urine Glucose (UA) Negative (Negative) 07/22/21 Unknown Urine Ketones Negative (Negative) 07/22/21 Unknown Urine Nitrite Negative (Negative) 07/22/21 Unknown Ur Leukocyte Esterase Negative (Negative) 07/22/21 Unknown Blood Type A Negative 07/21/21 18:52 Antibody Screen NEGATIVE 07/21/21 18:52 07/21/21 18:52 Aerobic Blood Culture - Final Blood Enterococcus faecalis Anaerobic Blood Culture - Final Enterococcus faecalis 07/21/21 18:30 Aerobic Blood Culture - Final Blood Enterococcus faecalis Anaerobic Blood Culture - Final Enterococcus faecalis 07/23/21 06:48 Aerobic Blood Culture - Preliminary Blood No growth in Aerobic bottle after 48 hours. Anaerobic Blood Culture - Preliminary No growth in Anaerobic bottle after 48 hours. 07/23/21 06:48 Aerobic Blood Culture - Preliminary Blood No growth in Aerobic bottle after 48 hours. Anaerobic Blood Culture - Preliminary No growth in Anaerobic bottle after 48 hours. 07/28/21 07/27/21 06:46 20:09 POC Glucose 107 H 98 Electrocardiogram Date: 07/21/21 Atrial-sensed ventricular-paced rhythm Abnormal ECG When compared with ECG of 27-JUN-2021 06:15, Vent. rate has increased BY 17 BPM Confirmed by Eris Giron ([id number]) on 07/22/2021 4:20:58 PM Chest X-Ray Date: 07/27/21 IMPRESSION: 1. Cardiomegaly and cardiac pacemaker with mild pulmonary vascular congestion. 2. Trace pleural effusions with bibasilar consolidation. This likely represents atelectasis. Correlate clinically for evidence of a superimposed infectious/inflammatory pneumonitis. 3. A right PICC line is new from previous. Echocardiogram Date: 07/24/21 EF: 60-65% s/p TAVR
--- NOTE | 2021-07-28 08:41 | Post Operative Brief Note ---
Cardiology Brief Post Op Date of Surgery July 28, 2021 Pre & Post Diagnosis Operation Date: 07/28/21 07:30 Preprocedure diagnosis: Persistent bacteremia, assess for endocarditis Post procedure diagnosis: No vegetation observed Procedure Transesophageal echocardiogram procedure: The patient's vital signs were monitored via the standard fashion. After informed consent was obtained and timeout was performed the patient was sedated with the assistance of the anesthesia service. No vegetation was observed. Dining Service Inspector DO Assistant Comfort Biggs, RCS Estimated Blood Loss 0 Findings Consistent with Post-Op Diagnosis Anesthesia Type MAC Complications None Disposition Disposition: PCU (Med / telemetry unit, room 255)
--- NOTE | 2021-07-28 08:50 | Cardiology Progress Note ---
Date of Service July 28, 2021 Assessment & Plan (1) Enterococcal bacteremia: (2) C. 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 Currently afebrile. Blood pressure stable. He previously completed a 2-week course of vancomycin on 07/11/2021 after having had a negative transesophageal echocardiogram a month ago June,. The patient has multiple potential sources for prosthetic infection including a percutaneous ASD closure device (although this has likely been endothelialized as it has been in place several years making a low risk substrate), he has a transcatheter aortic valve prosthesis, and a dual-chamber permanent pacemaker. Pacemaker pocket without erythema. In addition to appropriate treatment for C. difficile, he is now receiving Rocephin plus ampicillin. 07/28/21: Patient underwent repeat IRENA. The valvular structures were well visualized with no evidence of [place] valve or TAVR prosthesis vegetation / abscess. Pacemaker leads also without evidence of vegetation. Clinically, however, patient is felt to have endocarditis. Continue with plan for 6 weeks of antibiotics. Will need to update ID with regards to the IRENA results. with regards to the patient's VENKATA, creatinine 1.21 on 07/27, 2.12 on 07/28, furosemide has been held. Continue to monitor renal function and Hgb. Admission and Anticipated Discharge Date Admission Date: July 21, 2021 Subjective Patient seen prior to during and post IRENA. Patient tolerated the procedure well. Remained in sinus rhythm with ventricular pacing. Physical Exam Physical Exam: Temp Pulse Resp BP Pulse Ox 36.3 C L 60 18 113/48 L 96 07/28/21 06:45 07/28/21 08:30 07/28/21 08:30 07/28/21 08:30 07/28/21 08:30 Constitutional: + ill appearing Respiratory: normal respiratory effort, lungs clear to auscultation Cardiovascular: Rate/Rhythm: regular rate Heart Sounds: normal S1 and normal S2; no murmur Vessels: no JVD Extremities: + edema (Trace pedal edema) Gastrointestinal (Abdomen): normal bowel sounds, soft, nontender, no hepatosplenomegaly Results & Data ([facility]) Vital Signs (Past 12 Hours) Vital Signs Temp Pulse Pulse Resp BP Pulse Ox 07/28/21 08:30 60 18 113/48 L 96 07/28/21 07:10 63 18 135/52 L 95 07/28/21 06:45 36.3 C L 63 18 127/52 L 93 07/28/21 03:21 36.3 C L 63 18 132/47 L 93 07/27/21 23:08 36.3 C L 66 18 135/56 L 93 07/27/21 22:19 63 Laboratory Results CBC 07/28/21 Range/Units 05:59 WBC 10.68 (4.8-10.8) K/uL RBC 2.98 L (4.7-6.1) M/uL Hgb 7.7 L (14.0-18.0) g/dL Hct 23.7 L (42-52) % Plt Count 280 (130-400) K/uL Neut # (Auto) 7.45 H (1.4-6.5) K/uL Lymph # (Auto) 1.11 L (1.2-3.4) K/uL [place] # (Auto) 1.20 H (0.11-0.59) K/uL Eos # (Auto) 0.52 H (0-0.5) K/uL Baso # (Auto) 0.04 (0-0.2) K/uL Comprehensive Metabolic Panel 07/28/21 Range/Units 05:59 Sodium 136 (136-145) mmol/L Potassium 4.2 (3.5-5.1) mmol/L Chloride 104 (98-107) mmol/L Carbon Dioxide 25 (21-32) mmol/L BUN 19 (6-23) mg/dl Creatinine 2.12 H D (0.6-1.4) mg/dl Glucose 105 H (70-99(Fasting)) mg/dl Calcium 8.1 L (8.5-10.1) mg/dl Intake and Output 07/27/21 07/28/21 07/28/21 22:59 06:59 14:59 Intake Total 445 / 1795 270 / 1795 Output Total 225 / 225 Balance 445 / 1570 45 / 1570 Intake: IV 170 / 540 170 / 540 Ampicillin 2,000 mg In Sodium 100 / 400 100 / 400 Chlor 0.9% Ad-Van 100 ml @ 200 mls/hr IV Q6H [facility] Rx#:[id number] cefTRIAXone SODIUM 2,000 mg In 70 / 140 70 / 140 Dextrose 5% 50 ml @ 140 mls/hr IV Q12H [facility] Rx#:[id number] Oral 275 / 1255 100 / 1255 Output: Urine 225 / 225 Other: Weight 70.2 kg 70.2 kg Weight Measurement Method Built in [facility] Patient Weight 07/29/21 06:59 Weight 70.2 kg (1) Anemia Anemia type: unspecified type Qualified Code(s): D64.9 - Anemia, unspecified (2) CHF (congestive heart failure) Heart failure chronicity: acute on chronic Heart failure type: unspecified Qualified Code(s): I50.9 - Heart failure, unspecified
[2021-07-28] MEDS: INSULIN ASPART PER UNIT SC SCH ×4 (09:00→20:36)
[2021-07-28] MEDS: levETIRAcetam 500 MG TAB PO SCH ×2 (09:52→20:33)
[2021-07-28] MEDS: METOPROLOL SUCC 25MG EXT REL TAB PO SCH ×2 (09:53→20:35)
[2021-07-28] MEDS: SILDENAFIL CITRATE 20 MG TABLET PO SCH ×2 (09:53→20:34)
[2021-07-28] MEDS: POTASSIUM CHLORIDE 10 MEQ TABCR PO SCH (09:53)
[2021-07-28] MEDS: ASPIRIN 81 MG ECTAB PO SCH (09:53)
[2021-07-28] MEDS: ATORVASTATIN 20 MG TAB PO SCH (09:54)
[2021-07-28] MEDS: EZETIMIBE 10 MG TABLET PO SCH (09:54)
[2021-07-28] MEDS: FINASTERIDE 5 MG TAB PO SCH (09:54)
[2021-07-28] MEDS: amLODIPine BESYLATE 5 MG TAB PO SCH (09:55)
[2021-07-28] MEDS: AMIODARONE 200 MG TAB PO SCH (09:55)
[2021-07-28] MEDS: RASPBERRY SYRUP 5 ML UDP PO SCH ×2 (09:56→20:35)
--- NOTE | 2021-07-28 09:58 | Anesthesiology Progress Note ---
Date of Service July 28, 2021 Anesthesia Post Procedure Vital Signs Vital Signs: Temp Pulse Pulse Resp BP Pulse Ox 07/28/21 09:11 36.3 C L 63 18 127/52 L 93 07/28/21 09:00 65 18 128/64 93 07/28/21 08:45 60 18 126/82 97 07/28/21 08:30 60 18 113/48 L 96 07/28/21 07:10 63 18 135/52 L 95 07/28/21 06:45 36.3 C L 63 18 127/52 L 93 07/28/21 03:21 36.3 C L 63 18 132/47 L 93 07/27/21 23:08 36.3 C L 66 18 135/56 L 93 07/27/21 22:19 63 07/27/21 19:46 36.5 C 65 18 142/59 H 94 07/27/21 15:31 60 07/27/21 15:25 36.3 C L 63 20 119/62 95 07/27/21 11:16 36.5 C 59 L 20 111/54 L 95 Transfer of Care Handoff Completed per policy Notes Mental Status: alert / awake / arousable and participated in evaluation Patient Amnestic to Procedure: Yes Nausea / Vomiting: adequately controlled Pain: adequately controlled Airway Patency, RR, SpO2: stable & adequate BP & HR: stable & adequate Hydration State: stable & adequate Anesthetic Complications: no major complications apparent and Pt Satisfied with anesthetic care
[2021-07-28] MEDS: ACETAMINOPHEN 325 MG TAB PO PRN (10:05)
[2021-07-28] MEDS: VANCOMYCIN HCL 125 MG/2.5ML SOLN PO SCH ×2 (10:06→20:46)
--- NOTE | 2021-07-28 11:28 | Communication Note ---
Date of Service: July 28, [address] Kim of [facility], and discussed case with him by phone with regard to negative IRENA. We both agree that clinically the patient has endocarditis. Repeat blood cultures obtained 07/23/21 are negative. 6 weeks of IV antibiotics recommended. - Ampicillin 2g IV q 4. This can also be administered as 12g IV daily via continuous infusion. The latter is preferred, but would ask Pharmacy what is feasible in house. - Ceftriaxone 2g IV q [address].
--- NOTE | 2021-07-28 16:09 | Hospitalist Progress Note ---
Date of Service July 28, 2021 Assessment & Plan (1) C. difficile diarrhea: Plan: per Dr. Lynn's notes with addendum: C diff Diarrhea Present on admission with weakness, diarrhea and dark stools Stool positive for C-diff WBC elevated at 18K -> 17K ->15-->9K Gastro on board - No role for endoscopy unless pt develops overt GIB or drop in HGB ID recommended to continue PO Vanco QID, then once diarrhea resolves to transition to BID and continue beyond 1 more week after Ampicillin and Rocephin course complete. 07/28 Diarrhea resolved decreased Vancomycin to BID Sepsis Meet sepsis criteria on admission with leukocytosis/febrile Possible due to bacteremia/Cdif Recurrent Enterococcus Faecalis Bacteremia Blood cx grew Gram positive cocci in chain- Enterococcus faecalis Pt was treating with IV vanco last month for 2 weeks for bacteremia Hx of prosthetic valve and PPM IRENA done on 06/29 did not showed any evidence of vegetation Repeat ECHO during this admission showed no evidence of vegetation or mass Repeat blood cx negative so far ID on board recommended to discontinue IV Vancomycin. Will start on Ampicillin 2g q4 and Rocephin 2g Q12h for 6 weeks Picc line placed for IV abx infusion 07/28 afebrile tolerating antibiotics well discussed with [employer] [facility]. Prado, negative IRENA but patient clinically presenting with endocarditis ID informed 6 weeks of IV antibiotics recommended - Ampicillin 2g IV q 4. This can also be administered as 12g IV daily via continuous infusion. The latter is preferred, but would ask Pharmacy what is feasible in house. - Ceftriaxone 2g IV q 12 Acute Diastolic CHF Acute renal failure on CKD stage III Creatinine increased to 2.1 Discontinue Lasix IV NSS at 60 cc/h ordered Monitor creatinine and volume status closely Hypokalemia Mostly related to diarrhea K 4.2 DC potassium supplement Generalized weakness Mostly due to acute illness Continue PT/OT eval Fall precaution CAD (coronary atherosclerotic disease): Denies any chest pain no evidence of ACS. Continue beta javier and statin Hg stable resume Aspirin PVD (peripheral vascular disease): H/o stents to bilateral lower extremities. Cont medical therapy. Anemia: h/o hematuria with cystoscopy with cystourethral dilation, clot evacuation and extensive fulguration by Dr. Turcios in Feb 2021. Hemoglobin 7.7 Iron 25 Transferrin 135 Start ferrous sulfate Monitor closely PAF (paroxysmal atrial fibrillation): Rate controlled on amiodarone Stable Pulmonary hypertension: Continue Revatio Stable DVT px SCD (for possible GI bleed ) Disposition Pending Will need long term facility Admission and Anticipated Discharge Date Admission Date: July 21, 2021 Subjective ff up for bacteremia, C. difficile diarrhea, etc. Seen sitting up in bed, comfortable Status post IRENA today States he feels fine overall, just little bit tired No chest pain, palpitations, dizziness, fevers or chills No diarrhea No nausea vomiting Denies other symptom Review of Systems Review of Systems: all noted and negative except for above Physical Exam Physical Exam: General- oriented x 3, not in distress, speaks in sentences with no effort or accessory muscle use Eyes- anicteric Neck- no JVD Lungs- clear BS bilaterally, no rales/wheezes Heart- normal rate, regular rhythm; no murmurs Abdomen- normal bowel sounds, nondistended, soft, nontender Extremities- no pretibial edema, no calf tenderness Neuro- alert, oriented x 3; no gross focal neurologic deficits Skin- warm & dry Results & Data Results & Data ([facility]) Vital Signs (Past 12 Hours) Vital Signs Temp Pulse Pulse Resp BP Pulse Ox 07/28/21 15:37 60 07/28/21 15:28 36.2 C L 61 20 112/63 94 07/28/21 11:05 36.3 C L 61 20 128/56 L 91 07/28/21 10:40 36.2 C L 63 20 110/62 90 07/28/21 10:07 36.4 C L 62 18 128/64 90 07/28/21 09:55 62 07/28/21 09:11 36.3 C L 63 18 127/52 L 93 07/28/21 09:00 65 18 128/64 93 07/28/21 08:45 60 18 126/82 97 07/28/21 08:30 60 18 113/48 L 96 07/28/21 07:10 63 18 135/52 L 95 07/28/21 06:45 36.3 C L 63 18 127/52 L 93 all noted and reviewed including below
[2021-07-28] MEDS: SODIUM CHLORIDE 0.9% 1000ML 1,000 ML IV SCH (16:35)
[2021-07-28] MEDS: FERROUS SULFATE 325 MG TAB PO SCH (17:28)
[2021-07-28] MEDS: GABAPENTIN 400 MG CAP PO SCH (20:33)
[2021-07-28] MEDS: TERAZOSIN HCL 5 MG CAP PO SCH (20:35)
[2021-07-29] MEDS: AMPICILLIN 2,000 MG in SODIUM CHLOR 0.9% AD-VAN 100 ML IV SCH ×4 (01:42→23:54)
[2021-07-29] MEDS: cefTRIAXone SODIUM 2,000 MG in DEXTROSE 5% 50 ML IV SCH ×2 (05:52→16:51)
[2021-07-29] MEDS: SODIUM CHLORIDE 0.9% 1000ML 1,000 ML IV SCH ×2 (05:57→23:55)
[2021-07-29] MEDS: INSULIN ASPART PER UNIT SC SCH ×4 (08:24→21:18)
[2021-07-29 08:26] LABS: Basophils # (auto) 0.02 K/uL (0-0.2); Basophils % (auto) 0.2 %; Eosinophils # (auto) 0.47 K/uL (0-0.5); Eosinophils % (auto) 4.6 %; Hematocrit (blood only) 24.4 % (42-52); Hemoglobin 7.9 g/dL (14.0-18.0); Immature Granulocytes # (auto) 0.25 K/uL (0.00-0.02); Immature Granulocytes % (auto) 2.5 %; Lymphocytes # (auto) 1.17 K/uL (1.2-3.4); Lymphocytes % (auto) 11.5 %; Mean Corpuscular Hemoglobin 25.9 pg (25-34); Mean Corpuscular Hgb Conc 32.4 g/dL (32-36); Mean Platelet Volume 8.5 fL (7.4-10.4); Monocytes # (auto) 1.04 K/uL (0.11-0.59); Monocytes % (auto) 10.2 %; Platelet Count 292 K/uL (130-400); RDW Coefficient of Variation 16.6 % (11.5-14.5); RDW Standard Deviation 48.6 fL (36.4-46.3); Red Blood Count 3.05 M/uL (4.7-6.1); White Blood Count 10.15 K/uL (4.8-10.8)
[2021-07-29] MEDS: SILDENAFIL CITRATE 20 MG TABLET PO SCH ×2 (08:28→21:04)
[2021-07-29] MEDS: METOPROLOL SUCC 25MG EXT REL TAB PO SCH ×2 (08:28→21:03)
[2021-07-29] MEDS: levETIRAcetam 500 MG TAB PO SCH ×2 (08:28→21:02)
[2021-07-29] MEDS: amLODIPine BESYLATE 5 MG TAB PO SCH (08:30)
[2021-07-29] MEDS: EZETIMIBE 10 MG TABLET PO SCH (08:31)
[2021-07-29] MEDS: ASPIRIN 81 MG ECTAB PO SCH (08:31)
[2021-07-29] MEDS: AMIODARONE 200 MG TAB PO SCH (08:31)
[2021-07-29] MEDS: FERROUS SULFATE 325 MG TAB PO SCH ×2 (08:31→16:51)
[2021-07-29] MEDS: ATORVASTATIN 20 MG TAB PO SCH (08:31)
[2021-07-29] MEDS: FINASTERIDE 5 MG TAB PO SCH (08:31)
[2021-07-29] MEDS: VANCOMYCIN HCL 125 MG/2.5ML SOLN PO SCH ×2 (08:32→21:05)
[2021-07-29] MEDS: RASPBERRY SYRUP 5 ML UDP PO SCH ×2 (08:32→21:04)
[2021-07-29 08:46] LABS: BUN Creatinine Ratio 8.5 (10-20); Calcium 8.2 mg/dl (8.5-10.1); Creatinine Clr Calc Pharmacy 20.6 ml/min; Est GFR (African American) 26.8 ml/min; Est GFR (Non-African American) 23.1 ml/min; Potassium 4.3 mmol/L (3.5-5.1)
[2021-07-29 08:54] LABS: Hypochromasia Present; Microcytosis Present
--- NOTE | 2021-07-29 09:39 | Nephrology Consultation ---
Date of Consultation July 29, 2021 Assessment & Plan (1) VENKATA (acute kidney injury): Stage II nonoliguric acute kidney injury. Baseline creatinine 0.8-1.0. Admitted at baseline. Marked uptrend in creatinine starting July 27. He is almost 5 L positive between July 27 to July 29, and is overall between July 21 and July 29 10 L positive - though I/O not reliable. Chemistries are and have been acceptable. -Urinalysis ordered -Daily basic metabolic panel ->>>Recommend post void residual check to shift x3 on daylight -needs strict intake and output -needs daily STANDING weight -ordered CXR for am to help evaluate volume status -low threshold for renal u/s -monitor for recurrent transaminitis and/or ascites (2) Enterococcal bacteremia: Per primary service, cardiology, infectious diseases History of Present Illness Reason for Consultation: VENKATA Requesting Physician: Dr Lynn Attending Physician: Tl Valdivia MD History of Present Illness 81-year-old male whom I am asked to evaluate for acute kidney injury was admitted July 21 with sepsis, C. difficile diarrhea, recurrent Enterococcus faecalis bacteremia. His baseline creatinine is 0.9-1.0. He remained at baseline until July 26. From July 27 until now creatinine has up trended rapidly to 2.5 today. 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 In 2021 patient has had frequent/near monthly hospitalizations, most recently for decompensated heart failure with sepsis from enterococcal bacteremia attributed to complicated UTI. He is 10 L positive on the admission (though not clear if I/O complete) and is currently receiving normal saline at 60 mL hourly since yesterday afternoon. No noliguric. No extremes in heart rate or blood pressure this admission. Admission blood cultures positive for 4 out of 4 E faecalis. These cleared within 48 hours. ADmission urinalysis was bland. He is receiving ampicillin and ceftriaxone for bacteremia. No diarrhea reported. Yesterday he had a transesophageal echocardiogram showed no vegetation. He denies sob, worsening abdominal distension or edema, ongoing diarrhea, n/v, difficulties passing urine w/ dysuria or gross hematuria. no cough, no chest pain, no palpitations. Allergies Allergy/AdvReac Type Severity Reaction Status Date / Time bee venom protein (honey bee) Allergy Severe ANAPHYLAXIS-YELLOW Verified 07/21/21 20:52 JACKETS lorazepam AdvReac Mild oversedation Verified 07/21/21 20:52 from AWSS protocol Uncoded Nonscreenable Allergy Severe All Uncoded 07/21/21 20:52 Allergen IV's must be administered thru 0.2mic in-line filter Home Medications Medication Instructions Recorded Confirmed Type epinephrine 0.3 mg/0.3 mL 0.3 mg IM DIRECTED PRN 02/18/21 07/21/21 History injection, auto-injector (EpiPen) furosemide 40 mg tablet 20 mg PO 3XWK 02/18/21 07/21/21 History levetiracetam 500 mg tablet 500 mg PO BID 02/18/21 07/21/21 History sildenafil (pulm.hypertension) 20 20 mg PO BID 02/18/21 07/21/21 History mg tablet terazosin 10 mg capsule 10 mg PO HS 02/18/21 07/21/21 History amiodarone 200 mg tablet 200 mg PO QAM #30 tab 03/03/21 07/21/21 Rx aspirin 81 mg tablet,delayed 81 mg PO QAM #30 tab 03/03/21 07/21/21 Rx release gabapentin 400 mg capsule 400 mg PO HS #0 cap 06/09/21 07/21/21 Rx amlodipine 10 mg tablet 5 mg PO DAILY 06/25/21 07/21/21 History finasteride 5 mg tablet 5 mg PO DAILY 06/25/21 07/21/21 History metoprolol succinate 50 mg 75 mg PO BID 06/25/21 07/21/21 History tablet,extended release 24 hr atorvastatin 20 mg tablet 20 mg PO DAILY 07/21/21 07/21/21 History ezetimibe 10 mg tablet 10 mg PO DAILY 07/21/21 07/21/21 History iron,carbonyl 65 mg-vitamin C 125 1 tab PO DAILY 07/21/21 07/21/21 History mg tablet,delayed release (Vitron-C) potassium chloride 10 mEq 10 meq PO QAM 07/21/21 07/21/21 History tablet,extended release ampicillin sodium 2 gram solution 2 g IV Q4H 42 Days #1 ea 07/25/21 Rx for injection ceftriaxone 2 gram solution for 2 g IV Q12H 42 Days ea 07/25/21 Rx injection Patient History Medical History Acute hyponatremia Anemia Anemia Atrial fibrillation, new onset Atrial septal defect, secundum CAD (coronary atherosclerotic disease) Carotid artery stenosis CHI (closed head injury) Chronic diastolic CHF (congestive heart failure), NYHA class 3 Closed sacral fracture Complete heart block, post-surgical Elevated troponin Fall Generalized muscle weakness Gout H/O alcohol dependence Hematoma of scalp Hematuria Hypokalemia Lumbar radiculopathy Moderate aortic stenosis Orthostasis PVD (peripheral vascular disease) Right heart failure due to pulmonary hypertension on Revatio, chronic oxygen 2LPM Weakness Surgical History S/P appendectomy 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 King Status post lumbar surgery 2014 Social History Smoking Status: Former smoker Tobacco Type: Cigarettes Smoking End Date: 1969; Second Hand Exposure: No; Do You Dip or Chew Tobacco: No; Tobacco Cessation Education Requested by Patient: No Hx Alcohol Use: No Hx Substance Use: No Preferred Language: Mongolian Communication Ability: Effective Drum Tender Required: No Beliefs That Will Affect Care: None marital status: Current Living Situation: Spouse Current Living Situation Comment: Lives with How many Children do You have: 1 Other Information That Helps Us Care for You: No Feels Safe at Home: Yes Safety Concerns: Feels Safe At This Time Assistive Devices: Oxygen - Continuous Review of Systems Review of Systems: All systems reviewed & are unremarkable except as noted in HPI & below Physical Exam Constitutional: well developed, + frail appearing and cooperative; no acute distress Eyes: EOM intact bilaterally ENMT: Ears: no external ear abnormality Nose: no external nose abnormality Mouth: + dry oral mucous membranes Neck: no nuchal rigidity Respiratory: normal respiratory effort Auscultation: + diminished lung sounds Cardiovascular: Rate/Rhythm: regular rate and regular rhythm Extremities: + edema (trace pretibial) Gastrointestinal (Abdomen): Inspection/Auscultation: + abdomen distended and normal bowel sounds Percussion/Palpation: abdomen soft and + ascites; abdomen nontender Musculoskeletal: Extremities: strength 5/5 throughout Skin: no rashes, warm and dry Neurologic: hagan, fluent speech, no tremor Psychiatric: Orientation: oriented x 3 Affect: + anxious affect Results & Data ([facility]) Vital Signs (Past 12 Hours) Vital Signs Temp Pulse Pulse Resp BP Pulse Ox 07/29/21 07:44 36.5 C 63 18 146/59 H 92 07/29/21 07:27 63 07/29/21 03:42 61 18 123/61 94 07/28/21 23:07 36.3 C L 60 18 131/42 L 94 Laboratory Results 07/29/21 08:05 07/29/21 08:05
--- NOTE | 2021-07-29 12:19 | Cardiology Progress Note ---
Date of Service July 29, 2021 Assessment & Plan (1) Enterococcal bacteremia: (2) C. difficile diarrhea: (3) Anemia: (4) CHF (congestive heart failure): (5) VENKATA (acute kidney injury): Plan: The patient is comfortable. The patient's care plan is already set. Dr. Prado will be rounding over the weekend and will assume his care. Admission and Anticipated Discharge Date Admission Date: July 21, 2021 Subjective The patient is eating lunch and appears comfortable. Review of Systems Review of Systems: Review of Systems: See HPI for pertinent positives. All other 10 point review of systems are negative. Physical Exam Physical Exam: General: no acute distress and stated age Head: normocephalic, no masses, lesions, tenderness or abnormalities Eyes: conjunctiva are pink and non-injected, sclera clear Neck: supple, no adenopathy, no bruits, normal jugular venous pulse, no hepatojugular reflux Chest: normal shape and normal respiratory effort Lungs: clear to auscultation and percussion Cardiac Exam: - regular rate & rhythm, no murmurs gallops or rubs - normal S1, normal S2 Pulses: 2(+) throughout Abdomen: abdomen soft, non-tender, no abnormal masses and no hepatosplenomegaly Musculoskeletal: no gait disturbance, no joint inflammation, no deforming arthritis Extremities: no edema and no cyanosis Neuro: grossly normal exam Results & Data ([facility]) Vital Signs (Past 12 Hours) Vital Signs Temp Pulse Pulse Resp BP Pulse Ox 07/29/21 11:25 36.3 C L 63 18 112/57 L 92 07/29/21 07:44 36.5 C 63 18 146/59 H 92 07/29/21 07:27 63 07/29/21 03:42 61 18 123/61 94 Laboratory Results Laboratory Results - last 24 hr 07/28/21 07/28/21 07/29/21 16:32 20:10 07:30 WBC RBC Hgb Hct MCV MCH MCHC RDW Std Deviation RDW Coeff of Ruth Plt Count MPV Immature Gran % (Auto) Neut % (Auto) Lymph % (Auto) Hamilton % (Auto) Eos % (Auto) Baso % (Auto) Neut # (Auto) Lymph # (Auto) Hamilton # (Auto) Eos # (Auto) Baso # (Auto) Immature Gran # (Auto) Hypochromasia Microcytosis Sodium Potassium Chloride Carbon Dioxide Anion Gap BUN Creatinine Est Cr Clr Drug Dosing Est GFR ( Amer) Est GFR (Non-Af Amer) BUN/Creatinine Ratio Glucose POC Glucose 125 H 103 H 118 H Calcium 07/29/21 07/29/21 07/29/21 08:05 08:05 11:27 WBC 10.15 RBC 3.05 L Hgb 7.9 L Hct 24.4 L MCV 80.0 MCH 25.9 MCHC 32.4 RDW Std Deviation 48.6 H RDW Coeff of Ruth 16.6 H Plt Count 292 MPV 8.5 Immature Gran % (Auto) 2.5 Neut % (Auto) 71.0 Lymph % (Auto) 11.5 Hamilton % (Auto) 10.2 Eos % (Auto) 4.6 Baso % (Auto) 0.2 Neut # (Auto) 7.20 H Lymph # (Auto) 1.17 L Hamilton # (Auto) 1.04 H Eos # (Auto) 0.47 Baso # (Auto) 0.02 Immature Gran # (Auto) 0.25 H Hypochromasia Present Microcytosis Present Sodium 137 Potassium 4.3 Chloride 106 Carbon Dioxide 24 Anion Gap 7 BUN 21 Creatinine 2.48 H D Est Cr Clr Drug Dosing 20.6 Est GFR ( Amer) 26.8 Est GFR (Non-Af Amer) 23.1 BUN/Creatinine Ratio 8.5 L Glucose 103 H POC Glucose 175 H Calcium 8.2 L Medications Administered Current Inpatient Medications Acetaminophen (Acetaminophen 325 Mg Tab) 650 mg PO Q4H PRN PRN Reason: Pain or Fever Stop: 08/20/21 22:34 Last Admin: 07/28/21 10:05 Dose: 650 mg Documented by: Amiodarone HCl ([facility]ar[facility] 200 Mg Tab) [facility]: 08/21/21 08:59 Last Admin: 07/29/21 08:31 Dose: 200 mg Documented by: Amlodipine Besylate (Amlodipine Besylate 5 Mg Tab) 5 mg PO DAILY [facility] Stop: 08/21/21 08:59 Last Admin: 07/29/21 08:30 Dose: 5 mg Documented by: Aspirin (Aspirin 81 Mg Ectab) [facility] [place]: 08/27/21 08:59 Last Admin: 07/29/21 08:31 Dose: 81 mg Documented by: Atorvastatin Calcium (Atorvastatin 20 Mg Tab) 20 mg PO DAILY [facility] Stop: 08/21/21 08:59 Last Admin: 07/29/21 08:31 Dose: 20 mg Documented by: Dextrose (Dextrose 50% 50 Ml Syringe) 25 - 50 ml IV UD PRN; Protocol PRN Reason: Hypoglycemia Protocol Stop: 08/20/21 22:34 Ezetimibe (Ezetimibe 10 Mg Tablet) 10 mg PO DAILY [facility] Stop: 08/21/21 08:59 Last Admin: 07/29/21 08:31 Dose: 10 mg Documented by: Ferrous Sulfate (Ferrous Sulfate 325 Mg Tab) 325 mg PO BIDM [facility]ARR[facility] Stop: 08/27/21 16:59 Last Admin: 07/29/21 08:31 Dose: 325 mg Documented by: Finasteride (Finasteride 5 Mg Tab) 5 mg PO DAILY [facility] Stop: 08/21/21 08:59 Last Admin: 07/29/21 08:31 Dose: 5 mg Documented by: Gabapentin (Gabapentin 400 Mg Cap) 400 mg PO HS [facility] Stop: 08/21/21 20:59 Last Admin: 07/28/21 20:33 Dose: 400 mg Documented by: Glucagon (Glucagon For Inj 1 Mg Vial) 1 mg SQ UD PRN; Protocol PRN Reason: Hypoglycemia Protocol Stop: 08/20/21 22:34 Glucose (Glucose 10 Tabs/Tube) 4 - 8 tabs PO UD PRN; Protocol PRN Reason: Hypoglycemia Protocol Stop: 08/20/21 22:34 Glucose (Glucose 40% Gel 15 Gm Tube) 15 - 30 gm PO UD PRN; Protocol PRN Reason: Hypoglycemia Protocol Stop: 08/20/21 22:34 Heparin Sodium (Beef Lung) (Heparin 10 Unit/Ml 5 Ml Flush) 5 ml FLUSH PRN PRN PRN Reason: Flush Stop: 08/25/21 12:15 Last Admin: 07/27/21 20:18 Dose: 5 ml Documented by: Promethazine HCl 6.25 mg/ (Sodium Chloride) 50.25 mls @ 201 mls/hr IV Q6H PRN PRN Reason: Nausea And Vomiting Stop: 08/20/21 22:34 Ceftriaxone Sodium 2,000 mg/ (Dextrose) 70 mls @ 140 mls/hr IV Q12H [facility] Stop: 09/05/21 17:59 Last Infusion: 07/29/21 06:30 Dose: Infused Documented by: Ampicillin Sodium 2,000 mg/ (Sodium Chloride) 100 mls @ 200 mls/hr IV Q6H [facility]; Protocol Stop: 09/06/21 13:59 Last Infusion: 07/29/21 09:24 Dose: Infused Documented by: Sodium Chloride (Nss 1000ml) 1,000 mls @ 60 mls/hr IV .[id number] [facility] Stop: 08/27/21 15:29 Last Admin: 07/29/21 05:57 Dose: 60 mls/hr Documented by: Insulin Aspart (Insulin Aspart Per Unit) 0 units SC ACHS [facility] Stop: 08/20/21 22:59 Last Admin: 07/29/21 12:06 Dose: 6 units Documented by: Levetiracetam (Levetiracetam 500 Mg Tab) 500 mg PO BID [facility] Stop: 08/20/21 22:34 Last Admin: 07/29/21 08:28 Dose: 500 mg Documented by: Lorazepam (Lorazepam 2 Mg/1 Ml Vial) 0.25 mg IV Q4H PRN PRN Reason: Anxiety Stop: 08/20/21 21:58 Metoprolol Succinate (Metoprolol Succ 25mg Ext Rel Tab) 75 mg PO BID [facility] Stop: 08/20/21 22:34 Last Admin: 07/29/21 08:28 Dose: 75 mg Documented by: Miscellaneous (Carbohydrates For Hypoglycemia ) 15 - 30 gm PO UD PRN PRN Reason: Hypoglycemia Protocol Stop: 08/20/21 22:34 Potassium Chloride (Potassium Chloride 10 Meq Tabcr) 10 meq PO BID17 [facility] Stop: 08/21/21 08:59 Last Admin: 07/28/21 09:53 Dose: 10 meq Documented by: Raspberry (Raspberry Syrup 5 Ml Udp) 5 ml PO BID [facility] Stop: 08/01/21 11:59 Last Admin: 07/29/21 08:32 Dose: 5 ml Documented by: Sildenafil Citrate (Sildenafil Citrate 20 Mg Tablet) 20 mg PO BID [facility] Stop: 08/21/21 08:59 Last Admin: 07/29/21 08:28 Dose: 20 mg Documented by: Terazosin HCl (Terazosin Hcl 5 Mg Cap) 10 mg PO HS [facility] Stop: 08/21/21 20:59 Last Admin: 07/28/21 20:35 Dose: 10 mg Documented by: Vancomycin HCl (Vancomycin Hcl 125 Mg/2.5ml Soln) 125 mg PO BID [facility] Stop: 08/06/21 20:59 Last Admin: 07/29/21 08:32 Dose: 125 mg Documented by: (1) Anemia Anemia type: unspecified type Qualified Code(s): D64.9 - Anemia, unspecified (2) CHF (congestive heart failure) Heart failure chronicity: acute on chronic Heart failure type: unspecified Qualified Code(s): I50.9 - Heart failure, unspecified
--- NOTE | 2021-07-29 17:46 | Hospitalist Progress Note ---
Date of Service July 29, 2021 Assessment & Plan (1) C. difficile diarrhea: Plan: per Dr. Lynn's notes with addendum: C diff Diarrhea Present on admission with weakness, diarrhea and dark stools Stool positive for C-diff WBC elevated at 18K -> 17K ->15-->9K Gastro on board - No role for endoscopy unless pt develops overt GIB or drop in HGB ID recommended to continue PO Vanco QID, then once diarrhea resolves to transition to BID and continue beyond 1 more week after Ampicillin and Rocephin course complete. 07/29 Diarrhea resolved decreased Vancomycin to BID Sepsis Meet sepsis criteria on admission with leukocytosis/febrile Possible due to bacteremia/Cdif Recurrent Enterococcus Faecalis Bacteremia Blood cx grew Gram positive cocci in chain- Enterococcus faecalis Pt was treating with IV vanco last month for 2 weeks for bacteremia Hx of prosthetic valve and PPM IRENA done on 06/29 did not showed any evidence of vegetation Repeat ECHO during this admission showed no evidence of vegetation or mass Repeat blood cx negative so far ID on board recommended to discontinue IV Vancomycin. Will start on Ampicillin 2g q4 and Rocephin 2g Q12h for 6 weeks Picc line placed for IV abx infusion 07/29 afebrile tolerating antibiotics well discussed with engineer steam Dr. Prado, negative IRENA but patient clinically presenting with endocarditis ID informed 6 weeks of IV antibiotics recommended - Ampicillin 2g IV every 8 hours-renally adjusted - Ceftriaxone 2g IV q 12 Acute Diastolic CHF Acute renal failure on CKD stage III Creatinine increased to 2.1 Lasix being held IV NSS at 60 cc/h ordered-completed Nephrology service consulted Monitor creatinine and volume status closely Hypokalemia Mostly related to diarrhea K 4.3 DC potassium supplement Generalized weakness Mostly due to acute illness Continue PT/OT eval Fall precaution CAD (coronary atherosclerotic disease): Denies any chest pain no evidence of ACS. Continue beta javier and statin Hg stable resume Aspirin PVD (peripheral vascular disease): H/o stents to bilateral lower extremities. Cont medical therapy. Anemia: h/o hematuria with cystoscopy with cystourethral dilation, clot evacuation and extensive fulguration by Dr. Turcios in Feb 2021. Hemoglobin stable at 7.9 Iron 25 Transferrin 135 Started ferrous sulfate Monitor closely PAF (paroxysmal atrial fibrillation): Rate controlled on amiodarone Stable Pulmonary hypertension: Continue Revatio Stable DVT px SCD (for possible GI bleed ) Disposition Pending Will need retirement facility Admission and Anticipated Discharge Date Admission Date: July 21, 2021 Subjective Follow-up for recurrent bacteremia, presumed endocarditis, etc. Resting chair, sitting up, not in distress Comfortable States he feels fine overall No diarrhea no chest pain, dyspnea, palpitations, dizziness No fevers or chills No other symptoms Review of Systems Review of Systems: all noted and negative except for above Physical Exam Physical Exam: General- oriented x 2, not in distress, speaks in sentences with no effort or accessory muscle use Eyes- anicteric Neck- no JVD Lungs- clear BS bilaterally, no rales/wheezes Heart- normal rate, regular rhythm; no murmurs Abdomen- normal bowel sounds, nondistended, soft, nontender Extremities- trace pretibial edema, no calf tenderness Neuro- alert, oriented x 2; no gross focal neurologic deficits Skin- warm & dry Results & Data Results & Data [facility]) Vital Signs (Past 12 Hours) Vital Signs Temp Pulse Pulse Resp BP Pulse Ox 07/29/21 15:22 63 07/29/21 14:55 36.2 C L 60 18 113/54 L 92 07/29/21 11:25 36.3 C L 63 18 112/57 L 92 07/29/21 07:44 36.5 C 63 18 146/59 H 92 07/29/21 07:27 63 all noted and reviewed including below
[2021-07-29] MEDS: GABAPENTIN 400 MG CAP PO SCH (21:02)
[2021-07-29] MEDS: TERAZOSIN HCL 5 MG CAP PO SCH (21:05)
[2021-07-30] MEDS: cefTRIAXone SODIUM 2,000 MG in DEXTROSE 5% 50 ML IV SCH ×2 (05:44→17:52)
[2021-07-30 06:20] LABS: Basophils # (auto) 0.01 K/uL (0-0.2); Basophils % (auto) 0.1 %; Eosinophils # (auto) 0.35 K/uL (0-0.5); Eosinophils % (auto) 4.5 %; Hematocrit (blood only) 23.1 % (42-52); Hemoglobin 7.6 g/dL (14.0-18.0); Immature Granulocytes # (auto) 0.21 K/uL (0.00-0.02); Immature Granulocytes % (auto) 2.7 %; Lymphocytes % (auto) 14.1 %; Mean Corpuscular Hemoglobin 26.5 pg (25-34); Mean Corpuscular Hgb Conc 32.9 g/dL (32-36); Mean Corpuscular Volume 80.5 fL (80-100); Mean Platelet Volume 8.6 fL (7.4-10.4); Monocytes # (auto) 0.85 K/uL (0.11-0.59); Monocytes % (auto) 10.9 %; Neutrophils # (auto) 5.26 K/uL (1.4-6.5); Neutrophils % (auto) 67.7 %; Platelet Count 288 K/uL (130-400); RDW Coefficient of Variation 16.7 % (11.5-14.5); RDW Standard Deviation 49.3 fL (36.4-46.3); Red Blood Count 2.87 M/uL (4.7-6.1); White Blood Count 7.78 K/uL (4.8-10.8)
[2021-07-30 06:49] LABS: BUN Creatinine Ratio 8.4 (10-20); Calcium 7.9 mg/dl (8.5-10.1); Est GFR (African American) 25.1 ml/min; Est GFR (Non-African American) 21.6 ml/min; Potassium 4.2 mmol/L (3.5-5.1)
[2021-07-30 07:11] LABS: Acanthocytes 1+; Microcytosis Present
[2021-07-30] MEDS: INSULIN ASPART PER UNIT SC SCH ×4 (08:32→20:31)
[2021-07-30] MEDS: AMPICILLIN 2,000 MG in SODIUM CHLOR 0.9% AD-VAN 100 ML IV SCH ×2 (08:36→16:24)
[2021-07-30] MEDS: levETIRAcetam 500 MG TAB PO SCH ×2 (08:36→20:29)
[2021-07-30] MEDS: FERROUS SULFATE 325 MG TAB PO SCH ×2 (08:36→16:26)
[2021-07-30] MEDS: VANCOMYCIN HCL 125 MG/2.5ML SOLN PO SCH ×2 (08:36→20:36)
[2021-07-30] MEDS: SILDENAFIL CITRATE 20 MG TABLET PO SCH ×2 (08:36→20:30)
[2021-07-30] MEDS: ASPIRIN 81 MG ECTAB PO SCH (08:37)
[2021-07-30] MEDS: FINASTERIDE 5 MG TAB PO SCH (08:37)
[2021-07-30] MEDS: AMIODARONE 200 MG TAB PO SCH (08:37)
[2021-07-30] MEDS: ATORVASTATIN 20 MG TAB PO SCH (08:37)
[2021-07-30] MEDS: amLODIPine BESYLATE 5 MG TAB PO SCH (08:37)
[2021-07-30] MEDS: EZETIMIBE 10 MG TABLET PO SCH (08:37)
[2021-07-30] MEDS: METOPROLOL SUCC 25MG EXT REL TAB PO SCH ×2 (08:37→20:30)
[2021-07-30] MEDS: RASPBERRY SYRUP 5 ML UDP PO SCH ×2 (08:38→20:29)
--- NOTE | 2021-07-30 08:51 | XRay Report ---
XR chest 1V portable CLINICAL HISTORY: follow up pulmonary vascular congestion COMPARISON STUDY: Chest radiograph July 27, 2021. FINDINGS: Postoperative findings within the spine are incidentally noted. Right PICC is in place. The re is a dual-lead left subclavian pacemaker. Prosthetic cardiac valve is noted. Cardiac silhouette is stable. No pneumothorax is present. There are trace bilateral pleural effusions. Interstitial pulmon davis edema has progressed. Left basilar opacity is again noted. IMPRESSION: 1. Interval development of interstitial pulmonary edema. 2. Small bilateral pleural effusions. Left basilar opacity likely reflects atelectasis although an in fectious process could appear similar. ACT 112: Negative or not required by law. Electronically signed by: Rubén Sterling M.D. 07/30/2021 8:49 AM
--- NOTE | 2021-07-30 10:46 | Progress Notes ---
SUBJECTIVE: Overnight, the patient developed some shortness of breath earlier today and had a chest x-ray done, which shows pulmonary edema. OBJECTIVE: VITAL SIGNS: The patient's vital signs appear reasonable with the blood pressure 127/46, temperature 36.5. He is requiring oxygen 2 liters per minute. CHEST: Bilateral decreased breath sounds, poor inspiratory effort. Occasional basal crackles. CARDIOVASCULAR: S1 and S2, regular. ABDOMEN: Soft, nontender. EXTREMITIES: Show 1+ edema, which appears to be new onset. UROLOGIC: He does have significant weight gain in the last few days. Urine output yesterday in a 24 -hour time period was only 750 mL and it has been fairly low for the last 4-5 days with urine output all consistently less than 500 mL. LABORATORY DATA: Blood work shows worsening kidney function. Creatinine is up to 2.6 this morning, which is slightly higher than yesterday. Sodium 136, potassium 4.2, BUN 22, creatinine 2.6, calcium 7.9, hemoglobin is also trending down to 7.6, WBC count 7.8, platelet count 288. Urine not done rece ntly. Chest x-ray done this morning shows pulmonary edema. ASSESSMENT AND PLAN: An 81-year-old male who has been in the hospital now for many days, admitted wi th sepsis, Clostridium difficile diarrhea, recurrent Enterococcus faecalis bacteremia. We have been consulted for acute renal failure and fluid overload. Acute renal failure: Baseline creatinine is normal at 0.9. He remained at baseline up until 022 and then creatinine has started to go up steadily and it is still rising. He appears to be in si gnificant fluid overload causing symptoms. Chest x-ray shows pulmonary edema as well as pleural effu vj and he does have significant lower extremity edema as well as oliguria and significant weight ga in for many days now. RECOMMENDATION: 1. Stop IV fluid. 2. Lasix 40 mg IV twice daily at least for 3-4 doses. 3. Creatinine may still rise, which is to be expected as this is most likely a case of ATN or an AIN in the setting of bacteremia, recent C. diff, hemodynamic issues. He is definitely not volume deple jennifer. Continue daily labs. 4. Case was discussed with hospitalist. Job ID: [id number]
[2021-07-30] MEDS: FUROSEMIDE 40 MG/4 ML VIAL IV SCH ×2 (10:48→17:53)
--- NOTE | 2021-07-30 16:48 | Hospitalist Progress Note ---
Date of Service July 30, 2021 Assessment & Plan (1) C. difficile diarrhea: Plan: per Dr. Lynn's notes with addendum: C diff Diarrhea Present on admission with weakness, diarrhea and dark stools Stool positive for C-diff WBC elevated at 18K -> 17K ->15-->9K Gastro on board - No role for endoscopy unless pt develops overt GIB or drop in HGB ID recommended to continue PO Vanco QID, then once diarrhea resolves to transition to BID and continue beyond 1 more week after Ampicillin and Rocephin course complete. 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 Will start on Ampicillin 2g q4 and Rocephin 2g Q12h for 6 weeks Picc line placed for IV abx infusion 07/30 afebrile tolerating antibiotics well discussed with house mover helper Dr. Prado, negative IRENA but patient clinically presenting with endocarditis ID informed 6 weeks of IV antibiotics recommended - Ampicillin 2g IV every 8 hours-renally adjusted - Ceftriaxone 2g IV q 12 Acute Diastolic CHF Acute renal failure on CKD stage III Creatinine increased to 2.4 Nephrology service consulted (+) signs of volume overload today Lasix 40mg IV bid Monitor creatinine and volume status closely Hypokalemia Mostly related to diarrhea K 4.3 DC potassium supplement Generalized weakness Mostly due to acute illness Continue PT/OT eval Fall precaution CAD (coronary atherosclerotic disease): Denies any chest pain no evidence of ACS. Continue beta javier and statin Hg stable resume Aspirin PVD (peripheral vascular disease): H/o stents to bilateral lower extremities. Cont medical therapy. Anemia: h/o hematuria with cystoscopy with cystourethral dilation, clot evacuation and extensive fulguration by Dr. Turcios in Feb 2021. Hemoglobin stable at 7.6 Iron 25 Transferrin 135 Started ferrous sulfate Monitor closely PAF (paroxysmal atrial fibrillation): Rate controlled on amiodarone Stable Pulmonary hypertension: Continue Revatio Stable DVT px SCD (for possible GI bleed ) Disposition Pending Will need fdc facility Admission and Anticipated Discharge Date Admission Date: July 21, 2021 Subjective ff up for endocarditis, acute renal failure, etc seen resting in chair, comfortable states he feels fine overall no dyspnea voiding with no problems no diarrhea, fever/chills no other symptoms Review of Systems Review of Systems: all noted and negative except for above Physical Exam Physical Exam: General- oriented x 2, not in distress, speaks in sentences with no effort or accessory muscle use Eyes- anicteric Neck- no JVD Lungs-mild rales at the bases no wheezing Heart- normal rate, regular rhythm; no murmurs Abdomen- normal bowel sounds, nondistended, soft, nontender Extremities- mild pretibial edema, no calf tenderness Neuro- alert, oriented x 2; no gross focal neurologic deficits Skin- warm & dry Results & Data Results & Data ([facility]) Vital Signs (Past 12 Hours) Vital Signs Temp Pulse Pulse Resp BP Pulse Ox 07/30/21 15:12 62 07/30/21 14:33 36.4 C L 59 L 18 121/56 L 91 07/30/21 10:48 36.3 C L 62 18 126/54 L 92 07/30/21 08:00 64 07/30/21 07:14 36.5 C 71 16 127/46 L 93 all noted and reviewed including below
[2021-07-30] MEDS: GABAPENTIN 400 MG CAP PO SCH (20:29)
[2021-07-30] MEDS: TERAZOSIN HCL 5 MG CAP PO SCH (20:29)
[2021-07-31] MEDS: AMPICILLIN 2,000 MG in SODIUM CHLOR 0.9% AD-VAN 100 ML IV SCH ×3 (00:05→16:46)
[2021-07-31] MEDS: cefTRIAXone SODIUM 2,000 MG in DEXTROSE 5% 50 ML IV SCH ×2 (05:24→18:23)
[2021-07-31] MEDS: RASPBERRY SYRUP 5 ML UDP PO SCH ×2 (08:24→19:44)
[2021-07-31] MEDS: INSULIN ASPART PER UNIT SC SCH ×4 (08:24→20:11)
[2021-07-31] MEDS: VANCOMYCIN HCL 125 MG/2.5ML SOLN PO SCH ×2 (08:24→19:40)
[2021-07-31] MEDS: FUROSEMIDE 40 MG/4 ML VIAL IV SCH ×2 (08:24→17:39)
[2021-07-31] MEDS: FINASTERIDE 5 MG TAB PO SCH (08:25)
[2021-07-31] MEDS: EZETIMIBE 10 MG TABLET PO SCH (08:25)
[2021-07-31] MEDS: FERROUS SULFATE 325 MG TAB PO SCH ×2 (08:25→16:46)
[2021-07-31] MEDS: AMIODARONE 200 MG TAB PO SCH (08:25)
[2021-07-31] MEDS: levETIRAcetam 500 MG TAB PO SCH ×2 (08:25→19:46)
[2021-07-31] MEDS: ASPIRIN 81 MG ECTAB PO SCH (08:25)
[2021-07-31] MEDS: SILDENAFIL CITRATE 20 MG TABLET PO SCH ×2 (08:25→19:41)
[2021-07-31] MEDS: METOPROLOL SUCC 25MG EXT REL TAB PO SCH ×2 (08:25→19:44)
[2021-07-31] MEDS: amLODIPine BESYLATE 5 MG TAB PO SCH (08:25)
[2021-07-31] MEDS: ATORVASTATIN 20 MG TAB PO SCH (08:25)
[2021-07-31 08:26] LABS: Basophils # (auto) 0.01 K/uL (0-0.2); Basophils % (auto) 0.1 %; Eosinophils # (auto) 0.37 K/uL (0-0.5); Eosinophils % (auto) 4.7 %; Hematocrit (blood only) 24.6 % (42-52); Immature Granulocytes # (auto) 0.12 K/uL (0.00-0.02); Immature Granulocytes % (auto) 1.5 %; Lymphocytes # (auto) 1.16 K/uL (1.2-3.4); Lymphocytes % (auto) 14.9 %; Mean Corpuscular Hemoglobin 26.1 pg (25-34); Mean Corpuscular Hgb Conc 32.5 g/dL (32-36); Mean Corpuscular Volume 80.4 fL (80-100); Mean Platelet Volume 8.6 fL (7.4-10.4); Monocytes # (auto) 0.85 K/uL (0.11-0.59); Monocytes % (auto) 10.9 %; Neutrophils % (auto) 67.9 %; Platelet Count 308 K/uL (130-400); RDW Coefficient of Variation 16.8 % (11.5-14.5); RDW Standard Deviation 48.9 fL (36.4-46.3); Red Blood Count 3.06 M/uL (4.7-6.1); White Blood Count 7.81 K/uL (4.8-10.8)
[2021-07-31 08:47] LABS: Calcium 8.4 mg/dl (8.5-10.1); Creatinine Clr Calc Pharmacy 18.6 ml/min; Est GFR (African American) 23.5 ml/min; Est GFR (Non-African American) 20.3 ml/min; Potassium 3.8 mmol/L (3.5-5.1)
--- NOTE | 2021-07-31 12:44 | Nephrology Progress Note ---
Date of Service July 31, 2021 Assessment & Plan Admission and Anticipated Discharge Date Admission Date: July 21, 2021 Subjective SUBJECTIVE: Overnight, Still Some SOB. Urine 1600 ml with iv lasix. OBJECTIVE: CHEST: Bilateral decreased breath sounds, poor inspiratory effort. Occasional basal crackles. CARDIOVASCULAR: S1 and S2, regular. ABDOMEN: Soft, nontender. EXTREMITIES: Show 1+ edema, which appears to be new onset. UROLOGIC: He does have significant weight gain in the last few days. LABORATORY DATA: reviewed. Creat up a bit ASSESSMENT AND PLAN: An 81-year-old male who has been in the hospital now for many days, admitted with sepsis, Clostridium difficile diarrhea, recurrent Enterococcus faecalis bacteremia. We have been consulted for acute renal failure and fluid overload. Acute renal failure: Baseline creatinine is normal at 0.9. He remained at baseline up until 07/26/2021 and then creatinine has started to go up steadily and it is still rising. He appears to be in significant fluid overload causing symptoms. Chest x-ray shows pulmonary edema as well as pleural effusion and he does have significant lower extremity edema as well as oliguria and significant weight gain for many days now. RECOMMENDATION: 1. Continue Lasix 40 mg IV twice daily for now. urine Did go up to 1600 with that from oliguric range 3. Creatinine may still rise, which is to be expected as this is most likely a case of ATN or an AIN in the setting of bacteremia, recent C. diff, hemodynamic issues. He is definitely not volume depleted. Continue daily labs. 4. Case was discussed with hospitalist. Results & Data ([facility]) Vital Signs (Past 12 Hours) Vital Signs Temp Pulse Resp BP Pulse Ox 07/31/21 11:10 36.4 C L 69 16 128/55 L 92 07/31/21 07:38 36.3 C L 67 18 128/61 95 07/31/21 02:24 63 115/59 L
--- NOTE | 2021-07-31 16:03 | Cardiology Progress Note ---
Date of Service July 31, 2021 Assessment & Plan (1) CHF (congestive heart failure): (2) Enterococcal bacteremia: Plan: Presumed endocarditis, despite lack of findings on IRENA. 6 weeks of Rocephin , ampicillin planned. Nephrology input noted and appreciated, continue IV furosemide 40 mg IV BID. Chronic anemia noted. May need to reconsider introducing SQ heparin for DVT prophylaxis, as he is at high risk for VTE. Admission and Anticipated Discharge Date Admission Date: July 21, 2021 Subjective Patient seen in follow up of bacteremia, CHF. He is comfortable , without complaint. Telemetry reveals SR with ventricular pacing in the 70s Review of Systems Review of Systems: All systems reviewed & are unremarkable except as noted in HPI & below Gastrointestinal: notes diarrhea has ceased Physical Exam Constitutional: no acute distress Respiratory: decreased BS at the bases Cardiovascular: RRR, no murmur, no edema Gastrointestinal (Abdomen): normal bowel sounds, soft, nontender, no hepatosplenomegaly Neurologic: PERRL, EOMI, accommodation nl, no face palsy, no dysarthria Results & Data ([facility]) Vital Signs (Past 12 Hours) Vital Signs Temp Pulse Pulse Resp BP Pulse Ox 07/31/21 15:27 73 07/31/21 15:23 36.2 C L 60 18 123/46 L 90 07/31/21 11:10 36.4 C L 69 16 128/55 L 92 07/31/21 07:38 36.3 C L 67 18 128/61 95 Laboratory Results CBC 07/31/21 Range/Units 08:10 WBC 7.81 (4.8-10.8) K/uL RBC 3.06 L (4.7-6.1) M/uL Hgb 8.0 L (14.0-18.0) g/dL Hct 24.6 L (42-52) % Plt Count 308 (130-400) K/uL Neut # (Auto) 5.30 (1.4-6.5) K/uL Lymph # (Auto) 1.16 L (1.2-3.4) K/uL [place] # (Auto) 0.85 H (0.11-0.59) K/uL Eos # (Auto) 0.37 (0-0.5) K/uL Baso # (Auto) 0.01 (0-0.2) K/uL Comprehensive Metabolic Panel 03/20/22 Range/Units 08:10 Sodium 139 (136-145) mmol/L Potassium 3.8 (3.5-5.1) mmol/L Chloride 105 (98-107) mmol/L Carbon Dioxide 26 (21-32) mmol/L BUN 22 (6-23) mg/dl Creatinine 2.76 H (0.6-1.4) mg/dl Glucose 94 (70-99(Fasting)) mg/dl Calcium 8.4 L (8.5-10.1) mg/dl Intake and Output 07/31/21 07/31/21 07/31/21 06:59 14:59 22:59 Intake Total 320 / 2165 615 / 615 Output Total 300 / 1650 850 / 850 Balance -235 / -235 Intake: IV 170 / 1095 100 / 100 Ampicillin 2,000 mg In Sodium 100 / 300 100 / 100 Chlor 0.9% Ad-Van 100 ml @ 200 mls/hr IV Q8H [facility] Rx#:[id number] cefTRIAXone SODIUM 2,000 mg In 70 / 210 Dextrose 5% 50 ml @ 140 mls/hr IV Q12H [facility] Rx#:[id number] Oral 150 / 1070 515 / 515 Output: Urine 300 / 1650 850 / 850 Other: # Unmeasured Voids 1 Weight 73.5 kg Weight Measurement Method Built in [facility] (1) CHF (congestive heart failure) Heart failure chronicity: acute on chronic Heart failure type: unspecified Qualified Code(s): I50.9 - Heart failure, unspecified
--- NOTE | 2021-07-31 17:24 | Hospitalist Progress Note ---
Date of Service July 31, 2021 Assessment & Plan (1) C. difficile diarrhea: Plan: per Dr. Lynn's notes with addendum: C diff Diarrhea Present on admission with weakness, diarrhea and dark stools Stool positive for C-diff WBC elevated at 18K -> 17K ->15-->9K Gastro on board - No role for endoscopy unless pt develops overt GIB or drop in HGB ID recommended to continue PO Vanco QID, then once diarrhea resolves to transition to BID and continue beyond 1 more week after Ampicillin and Rocephin course complete. 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 Will start on Ampicillin 2g q4 and Rocephin 2g Q12h for 6 weeks Picc line placed for IV abx infusion 320 afebrile tolerating antibiotics well discussed with rice farmer Dr. Prado, negative IRENA but patient clinically presenting with endocarditis ID informed 6 weeks of IV antibiotics recommended - Ampicillin 2g IV every 8 hours-renally adjusted - Ceftriaxone 2g IV q 12 Acute Diastolic CHF Acute renal failure on CKD stage III Creatinine increased to 2.7 Nephrology service consulted Continue with Lasix 40mg IV bid Monitor creatinine and volume status closely Hypokalemia Mostly related to diarrhea K 4.3 DC potassium supplement Generalized weakness Mostly due to acute illness Continue PT/OT eval Fall precaution CAD (coronary atherosclerotic disease): Denies any chest pain no evidence of ACS. Continue beta javier and statin Hg stable resume Aspirin PVD (peripheral vascular disease): H/o stents to bilateral lower extremities. Cont medical therapy. Anemia: h/o hematuria with cystoscopy with cystourethral dilation, clot evacuation and extensive fulguration by Dr. Turcios in Feb 2021. Hemoglobin stable around 7.5-8 Iron 25 Transferrin 135 Started ferrous sulfate Monitor closely PAF (paroxysmal atrial fibrillation): Rate controlled on amiodarone Stable Pulmonary hypertension: Continue Revatio Stable DVT px SCD Start heparin subcutaneous every 12 hours Monitor closely Disposition Pending Will need intermediate facility Admission and Anticipated Discharge Date Admission Date: July 21, 2021 Subjective Follow-up for endocarditis, acute renal failure, etc. Seen sitting up in bed, comfortable, not in distress States he feels fine overall Denies chest pain, shortness of breath, palpitations, dizziness No abdominal pain, nausea vomiting Urinating okay No other symptom Review of Systems Review of Systems: all noted and negative except for above Physical Exam Physical Exam: General- oriented x 3, not in distress, speaks in sentences with no effort or accessory muscle use Eyes- anicteric Neck- no JVD Lungs- clear breath sounds, no crackles, no wheezing bilaterally Heart- normal rate, regular rhythm; no murmurs Abdomen- normal bowel sounds, nondistended, soft, nontender Extremities-mild lower leg edema, no erythema/warmth/tender no calf tenderness Neuro- alert, oriented x 3; no gross focal neurologic deficits Skin- warm & dry Results & Data Results & Data ([facility]) Vital Signs (Past 12 Hours) Vital Signs Temp Pulse Pulse Resp BP Pulse Ox 07/31/21 15:27 73 07/31/21 15:23 36.2 C L 60 18 123/46 L 90 07/31/21 11:10 36.4 C L 69 16 128/55 L 92 07/31/21 07:38 36.3 C L 67 18 128/61 95 all noted and reviewed including below
[2021-07-31] MEDS: HEPARIN SOD 5,000 UNIT/0.5 ML VIAL SQ SCH (19:42)
[2021-07-31] MEDS: GABAPENTIN 400 MG CAP PO SCH (19:45)
[2021-07-31] MEDS: TERAZOSIN HCL 5 MG CAP PO SCH (19:46)
[2021-08-01] MEDS: AMPICILLIN 2,000 MG in SODIUM CHLOR 0.9% AD-VAN 100 ML IV SCH ×4 (00:18→23:47)
[2021-08-01] MEDS: cefTRIAXone SODIUM 2,000 MG in DEXTROSE 5% 50 ML IV SCH ×2 (05:54→17:52)
[2021-08-01 07:16] LABS: Basophils # (auto) 0.02 K/uL (0-0.2); Basophils % (auto) 0.3 %; Eosinophils # (auto) 0.39 K/uL (0-0.5); Eosinophils % (auto) 6.2 %; Hematocrit (blood only) 23.2 % (42-52); Hemoglobin 7.4 g/dL (14.0-18.0); Immature Granulocytes # (auto) 0.09 K/uL (0.00-0.02); Immature Granulocytes % (auto) 1.4 %; Lymphocytes # (auto) 1.03 K/uL (1.2-3.4); Lymphocytes % (auto) 16.4 %; Mean Corpuscular Hemoglobin 25.2 pg (25-34); Mean Corpuscular Hgb Conc 31.9 g/dL (32-36); Mean Corpuscular Volume 78.9 fL (80-100); Mean Platelet Volume 8.5 fL (7.4-10.4); Monocytes # (auto) 0.67 K/uL (0.11-0.59); Monocytes % (auto) 10.7 %; Neutrophils # (auto) 4.07 K/uL (1.4-6.5); Platelet Count 296 K/uL (130-400); RDW Coefficient of Variation 16.8 % (11.5-14.5); RDW Standard Deviation 48.5 fL (36.4-46.3); Red Blood Count 2.94 M/uL (4.7-6.1); White Blood Count 6.27 K/uL (4.8-10.8)
[2021-08-01 07:43] LABS: BUN Creatinine Ratio 8.4 (10-20); Calcium 8.4 mg/dl (8.5-10.1); Creatinine Clr Calc Pharmacy 19.4 ml/min; Est GFR (African American) 25.1 ml/min; Est GFR (Non-African American) 21.6 ml/min; Potassium 3.7 mmol/L (3.5-5.1)
[2021-08-01 07:44] LABS: RBC Morphology Unremarkable
[2021-08-01] MEDS: AMIODARONE 200 MG TAB PO SCH (09:08)
[2021-08-01] MEDS: amLODIPine BESYLATE 5 MG TAB PO SCH (09:09)
[2021-08-01] MEDS: INSULIN ASPART PER UNIT SC SCH ×4 (09:09→20:29)
[2021-08-01] MEDS: ASPIRIN 81 MG ECTAB PO SCH (09:09)
[2021-08-01] MEDS: FERROUS SULFATE 325 MG TAB PO SCH ×2 (09:09→17:35)
[2021-08-01] MEDS: EZETIMIBE 10 MG TABLET PO SCH (09:10)
[2021-08-01] MEDS: FUROSEMIDE 40 MG/4 ML VIAL IV SCH ×2 (09:10→17:39)
[2021-08-01] MEDS: SILDENAFIL CITRATE 20 MG TABLET PO SCH ×2 (09:10→19:39)
[2021-08-01] MEDS: ATORVASTATIN 20 MG TAB PO SCH (09:10)
[2021-08-01] MEDS: HEPARIN SOD 5,000 UNIT/0.5 ML VIAL SQ SCH ×2 (09:11→19:42)
[2021-08-01] MEDS: FINASTERIDE 5 MG TAB PO SCH (09:11)
[2021-08-01] MEDS: levETIRAcetam 500 MG TAB PO SCH ×2 (09:11→19:40)
[2021-08-01] MEDS: METOPROLOL SUCC 25MG EXT REL TAB PO SCH ×2 (09:11→19:39)
[2021-08-01] MEDS: RASPBERRY SYRUP 5 ML UDP PO SCH (09:15)
[2021-08-01] MEDS: VANCOMYCIN HCL 125 MG/2.5ML SOLN PO SCH ×2 (09:18→19:45)
--- NOTE | 2021-08-01 11:21 | Nephrology Progress Note ---
Date of Service August 01, 2021 Assessment & Plan Admission and Anticipated Discharge Date Admission Date: July 21, 2021 Subjective Subjective SUBJECTIVE: Overnight, Still Some SOB. Urine 1950 ml with iv lasix. OBJECTIVE: CHEST: Bilateral decreased breath sounds, poor inspiratory effort. Occasional basal crackles. CARDIOVASCULAR: S1 and S2, regular. ABDOMEN: Soft, nontender. EXTREMITIES: Show Trace edema, which appears to be new onset. UROLOGIC: He does have significant weight gain in the last few days. LABORATORY DATA: reviewed. Creat down a bit ASSESSMENT AND PLAN: An 81-year-old male who has been in the hospital now for many days, admitted with sepsis, Clostridium difficile diarrhea, recurrent Enterococcus faecalis bacteremia. We have been consulted for acute renal fa ilure and fluid overload. Acute renal failure: Baseline creatinine is normal at 0.9. He remained at baseline up until 07/26/2021 and then creatinine has started to go up steadily and it is still rising. He appears to be in significant fluid overload causing symptoms. Chest x-ray shows pulmonary edema as well as pleural effusion and he does have significant lower extremity edema as well as oliguria and significant weight gain for many days now. RECOMMENDATION: 1. Continue Lasix 40 mg IV twice daily for now. Still sig WT up since admission. urine Did go up to 1950 with that from oliguric range. 3. Creatinine today slightly better . This is most likely a case of ATN or an AIN in the setting of bacteremia, recent C. diff, hemodynamic issues. He is definitely not volume depleted. Continue daily labs. 4. Case was discussed with hospitalist. Results & Data ([facility] [place]) Vital Signs (Past 12 Hours) Vital Signs Temp Pulse Pulse Resp BP Pulse Ox 08/01/21 07:44 36.3 C L 62 18 125/54 L 96 08/01/21 07:00 61 08/01/21 03:15 36.3 C L 61 18 132/51 L 96
--- NOTE | 2021-08-01 13:57 | Hospitalist Progress Note ---
Date of Service August 01, 2021 Assessment & Plan (1) Enterococcal bacteremia: Plan: (1) C. difficile diarrhea: Plan: per Dr. Lynn's notes with addendum: C diff Diarrhea Present on admission with weakness, diarrhea and dark stools Stool positive for C-diff WBC elevated at 18K -> 17K ->15-->9K Gastro on board - No role for endoscopy unless pt develops overt GIB or drop in HGB ID recommended to continue PO Vanco QID, then once diarrhea resolves to transition to BID and continue beyond 1 more week after Ampicillin and Rocephin course complete. 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 Will start on Ampicillin 2g q4 and Rocephin 2g Q12h for 6 weeks Picc line placed for IV abx infusion 08/01 afebrile tolerating antibiotics well discussed with urgent care technician Dr. Prado,negative IRENA but patient clinically presenting with endocarditis ID informed 6 weeks of IV antibiotics recommended - Ampicillin 2g IV every 8 hours-renally adjusted - Ceftriaxone 2g IV q 12 Acute Diastolic CHF Acute renal failure on CKD stage III Creatinine increased to 2.6 Nephrology service consulted Lasix increased from 40 to 60 mg IV twice daily Monitor creatinine and volume status closely Hypokalemia Mostly related to diarrhea K 3.7 We will order potassium 20 milliequivalents daily Generalized weakness Mostly due to acute illness Continue PT/OT eval Fall precaution CAD (coronary atherosclerotic disease): Denies any chest pain no evidence of ACS. Continue beta javier and statin resumed Aspirin PVD (peripheral vascular disease): H/o stents to bilateral lower extremities. Cont medical therapy. Anemia: h/o hematuria with cystoscopy with cystourethral dilation, clot evacuation and extensive fulguration by Dr. Turcios in Feb 2021. Hemoglobin stable around 7.5-8 Iron 25 Transferrin 135 Started ferrous sulfate No signs of active GI bleed or any bleeding Possibly from multiple blood draws: We will give 1 unit packed RBCs PAF (paroxysmal atrial fibrillation): Rate controlled on amiodarone Stable Pulmonary hypertension: Continue Revatio Stable DVT px SCD Start heparin subcutaneous every 12 hours Monitor closely Disposition Pending Will need [facility] facility Admission and Anticipated Discharge Date Admission Date: July 21, 2021 Subjective Follow-up for presumed endocarditis, acute renal failure likely ATN/AIN, etc. Seen sitting up in bedside chair, eating lunch States he feels fine overall Denies shortness of breath, chest pain, dizziness, palpitations No abdominal pain, nausea vomiting, melena hematochezia Voiding with no problems No other symptom Review of Systems Review of Systems: all noted and negative except for above Physical Exam Physical Exam: General- oriented x 2, not in distress, speaks in sentences with no effort or accessory muscle use Eyes- anicteric Neck- no JVD Lungs-mild rales, no wheezing Good air entry bilaterally Heart- normal rate, regular rhythm; no murmurs Abdomen- normal bowel sounds, nondistended, soft, nontender Extremities-mild lower leg edema, no calf tenderness Neuro- alert, oriented x 3; no gross focal neurologic deficits Skin- warm & dry Results & Data Results & Data ([facility]) Vital Signs (Past 12 Hours) Vital Signs Temp Pulse Pulse Resp BP Pulse Ox 08/01/21 12:04 36.3 C L 61 20 122/64 93 08/01/21 07:44 36.3 C L 62 18 125/54 L 96 08/01/21 07:00 61 08/01/21 03:15 36.3 C L 61 18 132/51 L 96 all noted and reviewed including below
[2021-08-01] MEDS: TERAZOSIN HCL 5 MG CAP PO SCH (19:39)
[2021-08-01] MEDS: GABAPENTIN 400 MG CAP PO SCH (19:40)
[2021-08-02] MEDS: cefTRIAXone SODIUM 2,000 MG in DEXTROSE 5% 50 ML IV SCH ×2 (05:47→17:50)
[2021-08-02 08:18] LABS: Basophils # (auto) 0.01 K/uL (0-0.2); Basophils % (auto) 0.1 %; Eosinophils # (auto) 0.33 K/uL (0-0.5); Eosinophils % (auto) 4.8 %; Hematocrit (blood only) 24.9 % (42-52); Hemoglobin 8.1 g/dL (14.0-18.0); Immature Granulocytes # (auto) 0.06 K/uL (0.00-0.02); Immature Granulocytes % (auto) 0.9 %; Mean Corpuscular Hemoglobin 25.6 pg (25-34); Mean Corpuscular Hgb Conc 32.5 g/dL (32-36); Mean Corpuscular Volume 78.5 fL (80-100); Mean Platelet Volume 8.6 fL (7.4-10.4); Monocytes % (auto) 11.6 %; Neutrophils # (auto) 4.57 K/uL (1.4-6.5); Neutrophils % (auto) 66.6 %; Platelet Count 331 K/uL (130-400); RDW Coefficient of Variation 16.6 % (11.5-14.5); Red Blood Count 3.17 M/uL (4.7-6.1); White Blood Count 6.87 K/uL (4.8-10.8)
[2021-08-02] MEDS: AMPICILLIN 2,000 MG in SODIUM CHLOR 0.9% AD-VAN 100 ML IV SCH ×2 (08:39→15:57)
[2021-08-02] MEDS: HEPARIN SOD 5,000 UNIT/0.5 ML VIAL SQ SCH ×2 (08:42→20:41)
[2021-08-02] MEDS: FUROSEMIDE 40 MG/4 ML VIAL IV SCH (08:42)
[2021-08-02] MEDS: FERROUS SULFATE 325 MG TAB PO SCH ×2 (08:42→16:00)
[2021-08-02] MEDS: FINASTERIDE 5 MG TAB PO SCH (08:43)
[2021-08-02] MEDS: AMIODARONE 200 MG TAB PO SCH (08:43)
[2021-08-02] MEDS: levETIRAcetam 500 MG TAB PO SCH ×2 (08:44→20:41)
[2021-08-02] MEDS: amLODIPine BESYLATE 5 MG TAB PO SCH (08:44)
[2021-08-02] MEDS: EZETIMIBE 10 MG TABLET PO SCH (08:44)
[2021-08-02] MEDS: SILDENAFIL CITRATE 20 MG TABLET PO SCH ×2 (08:44→20:43)
[2021-08-02] MEDS: ASPIRIN 81 MG ECTAB PO SCH (08:44)
[2021-08-02] MEDS: ATORVASTATIN 20 MG TAB PO SCH (08:45)
[2021-08-02] MEDS: METOPROLOL SUCC 25MG EXT REL TAB PO SCH ×2 (08:46→20:41)
[2021-08-02 08:49] LABS: Calcium 8.5 mg/dl (8.5-10.1); Creatinine Clr Calc Pharmacy 17.8 ml/min; Est GFR (African American) 24.8 ml/min; Est GFR (Non-African American) 21.4 ml/min; Potassium 3.3 mmol/L (3.5-5.1)
[2021-08-02] MEDS ORDERED: POTASSIUM CHLORIDE CRTAB 20 MEQ TABCR PO STA (09:33)
[2021-08-02] MEDS: VANCOMYCIN HCL 125 MG/2.5ML SOLN PO SCH ×2 (09:58→21:04)
[2021-08-02] MEDS: INSULIN ASPART PER UNIT SC SCH ×4 (09:58→21:05)
--- NOTE | 2021-08-02 13:56 | Nephrology Progress Note ---
Date of Service August 02, 2021 Assessment & Plan Admission and Anticipated Discharge Date Admission Date: July 21, 2021 Subjective Subjective SUBJECTIVE: Overnight, Still Some SOB. Urine 2500 ml with iv lasix. OBJECTIVE: CHEST: Bilateral decreased breath sounds, poor inspiratory effort. Occasional basal crackles. CARDIOVASCULAR: S1 and S2, regular. ABDOMEN: Soft, nontender. EXTREMITIES: Show Trace edema, which appears to be new onset. UROLOGIC: He does have significant weight gain in the last few days. LABORATORY DATA: reviewed. Creat stable. ASSESSMENT AND PLAN: An 81-year-old male who has been in the hospital now for many days, admitted with sepsis, Clostridium difficile diarrhea, recurrent Enterococcus faecalis bacteremia. We have been consulted for acute renal aristides lure and fluid overload. Acute renal failure: Baseline creatinine is normal at 0.9. He remained at baseline up until 07/26/2021 and then creatinine has started to go up steadily and it is still rising. He appears to be in significant fluid overload causing symptoms. Chest x-ray shows pulmonary edema as well as pleural effusion and he does have significant lower extremity edema as well as oliguria and significant weight gain for many days now. RECOMMENDATION: 1. Stop iv lasix. Change to 40 po bid. . 2. Creatinine about stable now for many days. . This is most likely a case of ATN or an AIN in the setting of bacteremia, recent C. diff, hemodynamic issues. He is definitely not volume depleted. Continue daily labs. Results & Data ([facility]) Vital Signs (Past 12 Hours) Vital Signs Temp Pulse Pulse Resp BP Pulse Ox 08/02/21 11:41 36.3 C L 61 20 124/68 96 08/02/21 08:00 60 08/02/21 07:49 36.3 C L 65 20 120/46 L 92 08/02/21 03:02 36.5 C 61 18 129/55 L 98
[2021-08-02] MEDS: FUROSEMIDE 40 MG TAB PO SCH (16:01)
--- NOTE | 2021-08-02 18:36 | Hospitalist Progress Note ---
Date of Service August 02, 2021 Assessment & Plan (1) Enterococcal bacteremia: Plan: (1) C. difficile diarrhea: Plan: per Dr. Lynn's notes with addendum: C diff Diarrhea Present on admission with weakness, diarrhea and dark stools Stool positive for C-diff WBC elevated at 18K -> 17K ->15-->9K Gastro on board - No role for endoscopy unless pt develops overt GIB or drop in HGB ID recommended to continue PO Vanco QID, then once diarrhea resolves to transition to BID and continue beyond 1 more week after Ampicillin and Rocephin course complete. 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 Will start on Ampicillin 2g q4 and Rocephin 2g Q12h for 6 weeks Picc line placed for IV abx infusion 08/02 afebrile tolerating antibiotics well discussed with novelty candy maker Dr. Prado,negative IRENA but patient clinically presenting with endocarditis ID informed 6 weeks of IV antibiotics recommended - Ampicillin 2g IV every 8 hours-renally adjusted - Ceftriaxone 2g IV q 12 Acute Diastolic CHF Acute renal failure on CKD stage III Creatinine increased to 2.6 Nephrology service consulted Given Lasix 40 to 60 mg IV Transition to Lasix 40 mg p.o. twice daily today Hypokalemia Mostly related to diarrhea K 3.3 Additional potassium of 40 mg to be ordered today Continue potassium 20 mEq daily Generalized weakness Mostly due to acute illness Continue PT/OT eval Fall precaution CAD (coronary atherosclerotic disease): Denies any chest pain no evidence of ACS. Continue beta javier and statin resumed Aspirin PVD (peripheral vascular disease): H/o stents to bilateral lower extremities. Cont medical therapy. Anemia: h/o hematuria with cystoscopy with cystourethral dilation, clot evacuation and extensive fulguration by Dr. Turcios in Feb 2021. Hemoglobin stable around 7.5-8 Iron 25 Transferrin 135 Started ferrous sulfate No signs of active GI bleed or any bleeding Asymptomatic Hemoglobin 8.1 Hold off on any blood transfusions for now PAF (paroxysmal atrial fibrillation): Rate controlled on amiodarone Stable Pulmonary hypertension: Continue Revatio Stable DVT px SCD Start heparin subcutaneous every 12 hours Monitor closely Disposition Pending If patient's creatinine stable tomorrow, transition to [facility] facility Admission and Anticipated Discharge Date Admission Date: July 21, 2021 Subjective Follow-up for presumed endocarditis, acute renal failure, etc. Seen resting in bed side chair, comfortable, reading magazine States he feels fine overall No fevers or chills, nausea vomiting, chest pain, shortness of breath Voiding with no issues No other symptom Review of Systems Review of Systems: all noted and negative except for above Physical Exam Physical Exam: General- oriented x 3, not in distress, speaks in sentences with no effort or accessory muscle use Eyes- anicteric Neck- no JVD Lungs- clear BS, no crackles or wheezing bilaterally Heart- normal rate, regular rhythm; no murmurs Abdomen- normal bowel sounds, nondistended, soft, nontender Extremities-mild lower extremity edema, no erythema/warmth/tenderness, no calf tenderness Neuro- alert, oriented x 3; no gross focal neurologic deficits Skin- warm & dry Results & Data Results & Data ([facility]) Vital Signs (Past 12 Hours) Vital Signs Temp Pulse Pulse Resp BP Pulse Ox 08/02/21 15:39 60 08/02/21 15:29 36.3 C L 57 L 20 111/56 L 96 08/02/21 11:41 36.3 C L 61 20 124/68 96 08/02/21 08:00 60 08/02/21 07:49 36.3 C L 65 20 120/46 L 92 all noted and reviewed including below
--- NOTE | 2021-08-02 19:08 | Cardiology Progress Note ---
Date of Service August 02, 2021 Assessment & Plan (1) CHF (congestive heart failure): (2) Enterococcal bacteremia: Plan: Presumed endocarditis, despite lack of findings on IRENA. 6 weeks of Rocephin , ampicillin planned. Nephrology input noted and appreciated, agree with furosemide 40 mg BID. Stable from cardiac standpoint for transfer to [facility]. Admission and Anticipated Discharge Date Admission Date: July 21, 2021 Subjective Pt seen in follow up. Feels well. Breathing improved. Physical Exam Constitutional: + ill appearing; no acute distress Respiratory: normal respiratory effort, lungs clear to auscultation Cardiovascular: RRR, no murmur, no edema Rate/Rhythm: regular rate Heart Sounds: normal S1 and normal S2; no murmur Vessels: no JVD Extremities: + edema (Trace pedal edema) Gastrointestinal (Abdomen): normal bowel sounds, soft, nontender, no hepatosplenomegaly Neurologic: PERRL, EOMI, accommodation nl, no face palsy, no dysarthria Results & Data ([facility]) Vital Signs (Past 12 Hours) Vital Signs Temp Pulse Pulse Resp BP Pulse Ox 08/02/21 15:39 60 08/02/21 15:29 36.3 C L 57 L 20 111/56 L 96 08/02/21 11:41 36.3 C L 61 20 124/68 96 08/02/21 08:00 60 08/02/21 07:49 36.3 C L 65 20 120/46 L 92 (1) CHF (congestive heart failure) Heart failure chronicity: acute on chronic Heart failure type: unspecified Qualified Code(s): I50.9 - Heart failure, unspecified
[2021-08-02] MEDS: GABAPENTIN 400 MG CAP PO SCH (20:40)
[2021-08-02] MEDS: TERAZOSIN HCL 5 MG CAP PO SCH (20:44)
[2021-08-02] MEDS: RASPBERRY SYRUP 5 ML UDP PO SCH (22:00)
[2021-08-03] MEDS: AMPICILLIN 2,000 MG in SODIUM CHLOR 0.9% AD-VAN 100 ML IV SCH ×2 (00:07→08:45)
[2021-08-03] MEDS: cefTRIAXone SODIUM 2,000 MG in DEXTROSE 5% 50 ML IV SCH (06:05)
--- NOTE | 2021-08-03 07:21 | CT Scan Report ---
CT head/brain wo con CLINICAL HISTORY: left arm weakness? Technique: Contiguous axial CT images of the head were acquired from the base of the skull to the jayleen kylee without intravenous contrast administration. Images were viewed in brain, subdural and bone [facility]. Automated dose lowering techniques and/or adjustment according to patient size were utilized for this exam. Comparison: Comparison is made to CT head 06/25/2021 Findings: Areas of decreased attenuation are present in the periventricular and subcortical white matter bilate rally consistent with small vessel ischemic disease. Generalized cerebral atrophy with commensurate e nlargement of the ventricles, sulci, and cisterns is also present. There is no acute intracranial hem orrhage or evidence of acute territorial infarction. No shift of the midline structures, mass effect, or extra-axial abnormalities are shown. Atherosclerotic calcifications are present in the intracran ial segments of the internal carotid arteries. 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 Imaged portions of the paranasal sinuses and mastoid air cells are clear. The orbits appear normal. There are no acute fractures of the calvaria or scalp swelling. Impression: No acute intracranial hemorrhage, no evidence of acute territorial infarction or other acute intracra nial disease process. ACT 112: Negative or not required by law. Electronically signed by: Otto Moses M.D. 08/03/2021 7:19 AM
[2021-08-03 07:24] LABS: BUN Creatinine Ratio 8.2 (10-20); Calcium 8.1 mg/dl (8.5-10.1); Creatinine Clr Calc Pharmacy 17.4 ml/min; Est GFR (African American) 24.3 ml/min; Est GFR (Non-African American) 20.9 ml/min; Potassium 3.5 mmol/L (3.5-5.1)
[2021-08-03] MEDS: ATORVASTATIN 20 MG TAB PO SCH (08:50)
[2021-08-03] MEDS: VANCOMYCIN HCL 125 MG/2.5ML SOLN PO SCH (08:50)
[2021-08-03] MEDS: RASPBERRY SYRUP 5 ML UDP PO SCH (08:50)
[2021-08-03] MEDS: EZETIMIBE 10 MG TABLET PO SCH (08:51)
[2021-08-03] MEDS: ASPIRIN 81 MG ECTAB PO SCH (08:51)
[2021-08-03] MEDS: amLODIPine BESYLATE 5 MG TAB PO SCH (08:52)
[2021-08-03] MEDS: AMIODARONE 200 MG TAB PO SCH (08:52)
[2021-08-03] MEDS: FERROUS SULFATE 325 MG TAB PO SCH (08:52)
[2021-08-03] MEDS: FUROSEMIDE 40 MG TAB PO SCH (08:52)
[2021-08-03] MEDS: METOPROLOL SUCC 25MG EXT REL TAB PO SCH (08:53)
[2021-08-03] MEDS: FINASTERIDE 5 MG TAB PO SCH (08:53)
[2021-08-03] MEDS: HEPARIN SOD 5,000 UNIT/0.5 ML VIAL SQ SCH (08:53)
[2021-08-03] MEDS: SILDENAFIL CITRATE 20 MG TABLET PO SCH (08:54)
[2021-08-03] MEDS: INSULIN ASPART PER UNIT SC SCH ×2 (09:03→12:35)
[2021-08-03] MEDS: levETIRAcetam 500 MG TAB PO SCH (10:20)
--- NOTE | 2021-08-03 10:55 | Nephrology Progress Note ---
Date of Service August 03, 2021 Assessment & Plan Admission and Anticipated Discharge Date Admission Date: July 21, 2021 Subjective Subjective SUBJECTIVE: Overnight, Still Some SOB. Urine 1500 ml OBJECTIVE: CHEST: Bilateral decreased breath sounds, poor inspiratory effort. Occasional basal crackles. CARDIOVASCULAR: S1 and S2, regular. ABDOMEN: Soft, nontender. EXTREMITIES: Show Trace edema, which appears to be new onset. UROLOGIC: He does have significant weight gain in the last few days. LABORATORY DATA: reviewed. Creat stable at higher baseline of 2.6 range for 4 days now ASSESSMENT AND PLAN: An 81-year-old male who has been in the hospital now for many days, admitted with sepsis, Clostridium difficile diarrhea, recurrent Enterococcus faecalis bacteremia. We have been consulted for acute renal failure and fluid overload. Acute renal failure: Baseline creatinine is normal at 0.9. He remained at baseline up until 07/26/2021 and then creatinine has started to go up steadily and peaked at 2.7. Chest x-ray shows pulmonary edema as well as pleural effusion and he does have significant lower extremity edema as well as oliguria and significant weight gain for many days now. RECOMMENDATION: 1. Continue lasix 40 po bid. 2. Creatinine about stable now for many days but at much higher baseline than before. . This is most likely a case of ATN or an AIN in the setting of bacteremia, endocarditis, recent C. diff, hemodynamic issues.Creat not rising and making good urine so not in any imminent danger for dialysis need. But given ongoing Abx use for long time ( ? endocarditis) he is at risk for both AIN as well as Post infectious GN. will need nephro follo up within 1-2 weeks. . Results & Data ([facility]) Vital Signs (Past 12 Hours) Vital Signs Temp Pulse Resp BP Pulse Ox 08/03/21 08:27 36.4 C L 70 18 121/57 L 92 08/03/21 03:50 36.2 C L 60 18 120/55 L 96 08/03/21 00:15 36.4 C L 60 16 122/7 L 98 08/02/21 23:00 36.6 C 59 L 18 124/58 L 97
--- NOTE | 2021-08-03 11:53 | Hospitalist Progress Note ---
Date of Service August 03, 2021 Assessment & Plan (1) Endocarditis: Plan: Sepsis Meet sepsis criteria on admission with leukocytosis/febrile Possible due to bacteremia/Cdif Recurrent Enterococcus Faecalis Bacteremia Presumed Endocarditis Blood cx grew Gram positive cocci in chain- Enterococcus faecalis Pt was treated with IV vanco last month for 2 weeks for bacteremia Hx of prosthetic valve and PPM IRENA done on 06/29 did not showed any evidence of vegetation Repeat ECHO during this admission showed no evidence of vegetation or mass Repeat blood cx negative so far ID on board recommended to discontinue IV Vancomycin and transition to Ampicillin and for 6 weeks Picc line placed for IV abx infusion s/p IRENA: no vegetation observed per Lead [employer] T[employer] Dr. Prado, given clinical presentation, patient felt to have Presumed Endocarditis and 6 weeks IV antibiotics recommended 08/03 afebrile tolerating antibiotics well 6 weeks of IV antibiotics recommended (started 07/25/21) - Ampicillin 2g IV every 8 hours-renally adjusted - Ceftriaxone 2g IV q 12 PATIENT NEEDS 32 MORE DAYS OF IV AMPICILLIN AND CEFTRIAXONE weekly complete metabolic profile, and CRP C diff Diarrhea Present on admission with weakness, diarrhea and dark stools Stool positive for C-diff WBC elevated at 18K -> 17K ->15-->9K Gastro on board - No role for endoscopy unless pt develops overt GIB or drop in HGB ID recommended to continue PO Vanco QID, then once diarrhea resolves to transition to BID and continue beyond 1 more week after Ampicillin and Rocephin course complete. 08/03 Diarrhea resolved Vancomycin to BID X 32 DAYS and continue beyond 1 more week after Ampicillin and Rocephin course complete. CBC, BMP, CRP x 4 weeks, then weekly/bi-weekly CRP x 2 months, ff up results closely please ff up with Davida ID in 1 month Acute Diastolic CHF Acute renal failure on CKD stage III Creatinine increased to 2.6, likely ATN from Endocarditis, C diff Colitis Nephrology service consulted Given Lasix 40 to 60 mg IV Transition to Lasix 40 mg p.o. twice daily today repeat crea in 3-5 days ff up with Parking Control Officer Dr. Vargas in 2 weeks Hypokalemia Mostly related to diarrhea K 3.3 Additional potassium of 40 mg to be ordered today Continue potassium 20 mEq daily Generalized weakness Mostly due to acute illness Continue PT/OT eval Fall precaution CAD (coronary atherosclerotic disease): Denies any chest pain no evidence of ACS. Continue beta javier and statin resumed Aspirin PVD (peripheral vascular disease): H/o stents to bilateral lower extremities. Cont medical therapy. Anemia: h/o hematuria with cystoscopy with cystourethral dilation, clot evacuation and extensive fulguration by Dr. Turcios in Feb 2021. Hemoglobin stable around 7.5-8 Iron 25 Transferrin 135 Started ferrous sulfate No signs of active GI bleed or any bleeding Asymptomatic Hemoglobin 8.1 Hold off on any blood transfusions for now repeat CBC in 1 week PAF (paroxysmal atrial fibrillation): Rate controlled on amiodarone Stable Pulmonary hypertension: Continue Revatio Stable DVT px SCD heparin SC q12h given Disposition d/c to [facility] today ff up with Parking Control Officer Dr. Vargas in 2 weeks ff up with Lead Mason Tender Dr. Prado in 3-4 weeks Admission and Anticipated Discharge Date Admission Date: July 21, 2021 Subjective ff up for endocarditis, etc seen resting in bed, comfortable episode of left upper arm mild shaking overnight, lasting few minutes resolved on its own no weakness/numbness no chest pain, dyspnea, palpitations, dizziness no other symptoms states he is ready and would like to be discharged today Review of Systems Review of Systems: all noted and negative except for above Physical Exam Physical Exam: General- oriented x 3, not in distress, speaks in sentences with no effort or accessory muscle use Eyes- anicteric Neck- no JVD Lungs- clear breath sounds bilaterally, no crackles/wheeze Heart- normal rate, regular rhythm; no murmurs Abdomen- normal bowel sounds, nondistended, soft, nontender Extremities- mild pretibial edema, no calf tenderness Neuro- alert, oriented x 3; no new gross focal neurologic deficits Skin- warm & dry Results & Data Results & Data ([facility]) Vital Signs (Past 12 Hours) Vital Signs Temp Pulse Resp BP Pulse Ox 08/03/21 08:27 36.4 C L 70 18 121/57 L 92 08/03/21 03:50 36.2 C L 60 18 120/55 L 96 08/03/21 00:15 36.4 C L 60 16 122/7 L 98 all noted and reviewed including below Diagnostic Findings XR chest 1V portable HISTORY: SEPSIS COMPARISON: Chest 06/25/2021. FINDINGS: No pneumothorax. Trace bilateral pleural effusions. The heart remains enlarged. Is left-sided dual-chamber pacemaker and cardiac valve stent again noted. Cervical spinal fusion hardware persist. Mild interstitial pulmonary edema has slightly improved. There are patchy left basilar densities. IMPRESSION: 1. Slight improvement in the mild interstitial pulmonary edema and trace bilateral pleural effusions. 2. Patchy left basilar densities are nonspecific but favor atelectasis. ACT 112: Negative or not required by law. Electronically signed by: Mihir Flores M.D. 07/21/2021 6:[address] head/brain wo con CLINICAL HISTORY: left arm weakness? Technique: Contiguous axial CT images of the head were acquired from the base of the skull to the vertex without intravenous contrast administration. Images were viewed in brain, subdural and bone windows. Automated dose lowering techniques and/or adjustment according to patient size were utilized for this exam. Comparison: Comparison is made to CT head 06/25/2021 Findings: Areas of decreased attenuation are present in the periventricular and subcortical white matter bilaterally consistent with small vessel ischemic disease. Generalized cerebral atrophy with commensurate enlargement of the ventricles, sulci, and cisterns is also present. There is no acute intracranial hemorrhage or evidence of acute territorial infarction. No shift of the midline structures, mass effect, or extra-axial abnormalities are shown. Atherosclerotic calcifications are present in the intracranial segments of the internal carotid arteries. There is redemonstration of chronic changes of right occipital infarct. Imaged portions of the paranasal sinuses and mastoid air cells are clear. The orbits appear normal. There are no acute fractures of the calvaria or scalp swelling. Impression: No acute intracranial hemorrhage, no evidence of acute territorial infarction or other acute intracranial disease process. ACT 112: Negative or not required by law.
--- NOTE | 2021-08-03 13:15 | Discharge Summary ---
Date of Service August 03, 2021 Admission HPI Per Admitting Provider Chief Complaint: Diarrhea, weakness Primary Care Provider: Henry Campbell MD History obtained from patient, family, and records. Patient is a fair historian. Medical history significant for right-sided heart failure/cor pulmonale on Revatio (EF 60 to 65%, TTE 2021), CAD, PVD status post stent, aortic stenosis sp TAVR, ASD status post closure, hypertension, hyperlipidemia, prostate cancer status post surgery/radiation, seizure disorder, chronic anemia (baseline hemoglobin of 8-9), past tobacco/alcohol abuse. Monthly confinements since May 2021. Last confinement last month for decompensated heart failure and sepsis secondary to Enterococcus bacteremia secondary to complicated UTI. Patient discharged on 2-week IV vancomycin course. Patient had a fall at home last night after missing the commode. Patient has been getting weak as per son. Dark loose stools without abdominal pain. Weight up by 5 pounds. Patient denies chest pain, cough, S OB, dysuria symptoms. Patient seen at PCPs office and directed to ER for evaluation. IV Zosyn given at the ER for sepsis. IV PPI administered for UGI B. Admission Exam Per Admitting Provider GENERAL: slightly uncomfortable, tremulous, mild hearing impairment, no respiratory distress SKIN: Pallor, warm HEENT: Pale palpebral conjunctivae, no ptosis, dry buccal mucosa NECK : Supple, no tenderness CHEST : Decreased breath sounds, no tenderness HEART : RRR, no obvious murmurs ABDOMEN: Some distention, nontender EXTREMITIES : Minimal LE swelling, no LE tenderness, no other conspicuous deformities noted NEUROLOGIC : Coherent, no facial asymmetry, mild hearing impairment, tremulous, gait and stance not assessed Principal Diagnosis PRESUMED ENDOCARDITIS ENTEROCOCCUS FAECALIS Discharge Exam General- oriented x 3, not in distress, speaks in sentences with no effort or accessory muscle use Eyes- anicteric Neck- no JVD Lungs- clear breath sounds bilaterally, no crackles/wheeze Heart- normal rate, regular rhythm; no murmurs Abdomen- normal bowel sounds, nondistended, soft, nontender Extremities- mild pretibial edema, no calf tenderness Neuro- alert, oriented x 3; no new gross focal neurologic deficits Skin- warm & dry Discharge Data Allergies Allergy/AdvReac Type Severity Reaction Status Date / Time bee venom protein (honey bee) Allergy Severe ANAPHYLAXIS-YELLOW Verified 07/21/21 20:52 JACKETS lorazepam AdvReac Mild oversedation Verified 07/21/21 20:52 from AWSS protocol Uncoded Nonscreenable Allergy Severe All Uncoded 07/21/21 20:52 Allergen IV's must be administered thru 0.2mic in-line filter Consultations 07/21/21 19:58 ED Decision to Admit Stat 07/21/21 22:35 Consult Gastroenterology Routine 07/22/21 12:24 Consult Infectious Diseases Routine 07/25/21 20:33 Consult Cardiology Routine 07/26/21 10:47 Consult Anesthesiology Routine 07/29/21 09:10 Consult Nephrology Routine Procedures Performed Operation Date: 07/28/21 07:30 Actual Procedures s Echo Color Flow - Dylan Prado DO s Echo Doppler Complete - Dylan Prado DO p Echo Transesophageal - Dylan Prado DO Ordered Studies 08/03/21 00:39 CT head/brain wo con Stat CLINICAL HISTORY: left arm weakness? Technique: Contiguous axial CT images of the head were acquired from the base of the skull to the vertex without intravenous contrast administration. Images were viewed in brain, subdural and bone windows. Automated dose lowering techniques and/or adjustment according to patient size were utilized for this exam. Comparison: Comparison is made to CT head 06/25/2021 Findings: Areas of decreased attenuation are present in the periventricular and subcortical white matter bilaterally consistent with small vessel ischemic disease. Generalized cerebral atrophy with commensurate enlargement of the ventricles, sulci, and cisterns is also present. There is no acute intracranial hemorrhage or evidence of acute territorial infarction. No shift of the midline structures, mass effect, or extra-axial abnormalities are shown. Atherosclerotic calcifications are present in the intracranial segments of the internal carotid arteries. There is redemonstration of chronic changes of right occipital infarct. Imaged portions of the paranasal sinuses and mastoid air cells are clear. The orbits appear normal. There are no acute fractures of the calvaria or scalp swelling. Impression: No acute intracranial hemorrhage, no evidence of acute territorial infarction or other acute intracranial disease process. ACT 112: Negative or not required by law. Hospital Course (1) Endocarditis: Sepsis Meet sepsis criteria on admission with leukocytosis/febrile Possible due to bacteremia/Cdif Recurrent Enterococcus Faecalis Bacteremia Presumed Endocarditis Blood cx grew Gram positive cocci in chain- Enterococcus faecalis Pt was treated with IV vanco last month for 2 weeks for bacteremia Hx of prosthetic valve and PPM IRENA done on 06/29 did not showed any evidence of vegetation Repeat ECHO during this admission showed no evidence of vegetation or mass Repeat blood cx negative so far ID on board recommended to discontinue IV Vancomycin and transition to Ampicillin and for 6 weeks Picc line placed for IV abx infusion s/p IRENA: no vegetation observed per Computer Trainer Dr. Prado, given clinical presentation, patient felt to have Presumed Endocarditis and 6 weeks IV antibiotics recommended 08/03 afebrile tolerating antibiotics well 6 weeks of IV antibiotics recommended (started 07/25/21) - Ampicillin 2g IV every 8 hours-renally adjusted - Ceftriaxone 2g IV q 12 PATIENT NEEDS 32 MORE DAYS OF IV AMPICILLIN AND CEFTRIAXONE weekly complete metabolic profile, and CRP C diff Diarrhea Present on admission with weakness, diarrhea and dark stools Stool positive for C-diff WBC elevated at 18K -> 17K ->15-->9K Gastro on board - No role for endoscopy unless pt develops overt GIB or drop in HGB ID recommended to continue PO Vanco QID, then once diarrhea resolves to transition to BID and continue beyond 1 more week after Ampicillin and Rocephin course complete. 08/03 Diarrhea resolved Vancomycin to BID X 32 DAYS and continue beyond 1 more week after Ampicillin and Rocephin course complete. CBC, BMP, CRP x 4 weeks, then weekly/bi-weekly CRP x 2 months, ff up results closely please ff up with Davida CARMICHAEL in 1 month Acute Diastolic CHF Acute renal failure on CKD stage III Creatinine increased to 2.6, likely ATN from Endocarditis, C diff Colitis Nephrology service consulted Given Lasix 40 to 60 mg IV Transition to Lasix 40 mg p.o. twice daily today repeat crea in 3-5 days ff up with Customer Account Specialist Dr. Vargas in 2 weeks Hypokalemia Mostly related to diarrhea K 3.3 Additional potassium of 40 mg to be ordered today Continue potassium 20 mEq daily Generalized weakness Mostly due to acute illness Continue PT/OT eval Fall precaution CAD (coronary atherosclerotic disease): Denies any chest pain no evidence of ACS. Continue beta javier and statin resumed Aspirin PVD (peripheral vascular disease): H/o stents to bilateral lower extremities. Cont medical therapy. Anemia: h/o hematuria with cystoscopy with cystourethral dilation, clot evacuation and extensive fulguration by Dr. Turcios in Feb 2021. Hemoglobin stable around 7.5-8 Iron 25 Transferrin 135 Started ferrous sulfate No signs of active GI bleed or any bleeding Asymptomatic Hemoglobin 8.1 Hold off on any blood transfusions for now repeat CBC in 1 week Protonix 40mg daily - 30 minutes before breakfast PAF (paroxysmal atrial fibrillation): Rate controlled on amiodarone Stable Pulmonary hypertension: Continue Revatio Stable DVT px SCD heparin SC q12h given Disposition d/c to [facility] today ff up with Customer Account Specialist Dr. Vargas in 2 weeks ff up with Computer Trainer Dr. Prado in 3-4 weeks Total Time Total Time Spent Total Time Spent (In Minutes): > 30 minutes Discharge Plan Discharge Items Patient Disposition: Transfer Senior Living Fac Reason For Visit: SEPSIS, GI BLEED Discharge Diagnosis: PRESUMED ENDOCARDITIS C DIFF COLITIS ACUTE RENAL FAILURE Activity: As commented below Activity Comment: ALWAYS WITH ASSISTANCE, FALL PRECAUTIONS, CONTINUE PT/OT Lifting: Wait until after follow-up appointment Exercise/Sports: Wait until after follow-up appointment Driving/Machine Use: NO DRIVING Non-emergency contact: Primary Care Provider Call non-emergency contact if: you have any medication questions, your symptoms worsen, your pain is not controlled, your pain is worsening, your pain is unusual for you, your pain is concerning for you and you have a fever Follow-up/Referrals: Brittany Elias MD, PhD [Physician] - (Date & Time 08/10/2021 11:00 AM Provider Brittany Elias MD Department Nephrology, [facility] ) Dylan Prado DO [Computer Trainer] - Henry Campbell MD [Primary Care Provider] - Diet: Carb Consistent or DM2 and Heart Healthy Addtl Attending Provider Instructions: PLEASE REFER TO ACCOMPANYING HOSPITAL DISCHARGE SUMMARY FOR FURTHER DETAILS Ampicillin 2g IV every 8 hours-renally adjusted Ceftriaxone 2g IV q 12 PATIENT NEEDS 32 MORE DAYS OF IV AMPICILLIN AND CEFTRIAXONE Vancomycin to BID X 32 DAYS and continue beyond 1 more week after Ampicillin and Rocephin course complete. CBC, BMP, CRP x 4 weeks, then weekly/bi-weekly CRP x 2 months, ff up results closely please. Adjust Lasix accordingly based on volume status and renal function. Pending Studies at Discharge: Yes Studies:: Ampicillin 2g IV every 8 hours-renally adjusted Ceftriaxone 2g IV q 12 PATIENT NEEDS 32 MORE DAYS OF IV AMPICILLIN AND CEFTRIAXONE Vancomycin to BID X 32 DAYS and continue beyond 1 more week after Ampicillin and Rocephin course complete. CBC, BMP, CRP x 4 weeks, then weekly/bi-weekly CRP x 2 months, ff up results closely please Adjust Lasix accordingly based on volume status and renal function. Stand-Alone Forms: [facility] Skilled Items Patient informed of condition?: Yes DNR: No Discharge Level of Care: Skilled Communicable Disease: Yes Discharge Prognosis: Improving Lines: PICC Urinary Catheter: No Medications and DC Order Prescriptions: New ceftriaxone 2 gram recon soln 2 g IV Q12H 42 Days RF: 0 ampicillin sodium 2 gram recon soln 2 g IV Q8H 32 Days Qty: 96 RF: 0 vancomycin 125 mg capsule 125 mg PO BID 40 Days Qty: 80 RF: 0 ferrous sulfate 325 mg (65 mg iron) Tablet,Delayed Release (Dr/Ec) 325 mg PO BIDM 30 Days Qty: 60 RF: 0 furosemide 40 mg Tablet 40 mg PO BID17 Qty: 60 RF: 1 potassium chloride 20 mEq tablet extended release 20 meq PO DAILY Qty: 30 RF: 1 pantoprazole [Protonix] 40 mg tablet,delayed release (DR/EC) 40 mg PO DAILY Qty: 30 RF: 1 Continued atorvastatin 20 mg tablet 20 mg PO DAILY RF: 0 ezetimibe 10 mg tablet 10 mg PO DAILY RF: 0 Vitron-C 65 mg iron- 125 mg tablet,delayed release (DR/EC) 1 tab PO DAILY RF: 0 levetiracetam 500 mg tablet 500 mg PO BID RF: 0 epinephrine [EpiPen] 0.3 mg/0.3 mL Auto-Injector 0.3 mg IM DIRECTED PRN (Reason: Allergic Reaction) RF: 0 terazosin 10 mg capsule 10 mg PO HS RF: 0 sildenafil (pulm.hypertension) 20 mg tablet 20 mg PO BID RF: 0 amiodarone 200 mg Tablet 200 mg PO QAM Qty: 30 RF: 0 aspirin 81 mg Tablet,Delayed Release (Dr/Ec) 81 mg PO QAM Qty: 30 RF: 0 gabapentin 400 mg capsule 400 mg PO HS Qty: 0 RF: 0 metoprolol succinate 50 mg tablet extended release 24 hr 75 mg PO BID RF: 0 finasteride 5 mg tablet 5 mg PO DAILY RF: 0 amlodipine 10 mg tablet 5 mg PO DAILY RF: 0 Discontinued potassium chloride 10 mEq tablet extended release 10 meq PO QAM RF: 0 furosemide 40 mg tablet 20 mg PO 3XWK RF: 0 Discharge Orders: Discharge Order (Routine); Ordered 08/03/21 Ordered By: Tl Valdivia Admission Data Admit Date/Time: 07/21/21 21:09 Attending Provider: Ajay Santiago Admit Provider: Manjeet Maurer Primary Care Provider: Henry Campbell Other Providers: Manjeet Maurer ; Jordon Handy ; Rossi Arnold ; An Vega ; Adela York ; Hilario Fragoso ; Cholo Jaeger ; Lokesh Burton ; Randall Acosta ; Yulissa Jerry ; Neeta Choudhury ; Jessica Samayoa ; Bijal Gil ; Sumit Bliss ; [facility] ; Cameron Kan ; Killian Jack ; Yobani Kim I. ; Tano Bailey II ; Selina Moe ; Vasyl Smith ; Ryan Ackerman ; [facility] ; Dylan Prado ; Kye Drake ; Brittany Elias.
== END 2021-08-03 15:15 | DRG 314 ==
LOC: ED 18:14 → 2W 21:09 → SUATTDRO 21:09 → 2W 22:06